=== PATIENT | female | born 1950 | race Caucasian/White ===

== ENCOUNTER 2017-06-14 12:46 | Inpatient (IN) | payer MEDICARE, OTHER ==
[2017-06-14] MEDS ORDERED: NALOXONE 0.4 MG/ML 1 ML VIAL IV PRN (13:10)
--- NOTE | 2017-06-14 13:10 | ED ---
General Adult HPI - General Chief complaint: Chest Pain Stated complaint: Chest Pain Time Seen by Provider: 06/14/17 13:05 Source: patient, RN notes reviewed Mode of arrival: wheelchair Limitations: no limitations - History of Present Illness Initial comments: 66 -year-old female presenting with chief complaint of chest pain. Pain began approximately 10 AM. Central substernal burning. This did radiate to both arms. She states that she had some nausea without significant vomiting. No diaphoresis. Patient has no known history of coronary artery disease, not currently on any medication. - Related Data Home Medications Medication Instructions Recorded Confirmed No Known Home Medications [No 10/12/13 06/28/14 Known Home Medications] Allergies Allergy/AdvReac Type Severity Reaction Status Date / Time codeine AdvReac Nausea & Verified 06/14/17 12:50 Vomiting EYE DROPS WITH PRESERVATIVE/ Allergy Unknown Uncoded 06/14/17 12:50 SULPA Review of Systems ROS Statement: Those systems with pertinent positive or pertinent negative responses have been documented in the HPI. ROS Other: All systems not noted in ROS Statement are negative. Past Medical History Additional Past Medical History / Comment(s): PM BLEEDING History of Any Multi-Drug Resistant Organisms: None Reported Past Surgical History: Tubal Ligation Additional Past Surgical History / Comment(s): D&C Past Anesthesia/Blood Transfusion Reactions: Motion Sickness, Postoperative Nausea & Vomiting (PONV) Past Psychological History: No Psychological Hx Reported Smoking Status: Never smoker Past Alcohol Use History: None Reported Past Drug Use History: None Reported - Past Family History Father Family Medical History: Cancer Additional Family Medical History / Comment(s): LIP General Exam Limitations: no limitations General appearance: alert, in no apparent distress Head exam: Present: atraumatic, normocephalic Eye exam: Present: normal appearance, PERRL ENT exam: Present: normal exam Neck exam: Present: normal inspection. Absent: tenderness, meningismus Respiratory exam: Present: normal lung sounds bilaterally. Absent: respiratory distress Cardiovascular Exam: Present: regular rate, normal rhythm GI/Abdominal exam: Present: soft. Absent: distended, tenderness Extremities exam: Present: normal inspection, full ROM. Absent: tenderness Neurological exam: Present: alert, oriented X3, CN II-XII intact. Absent: motor sensory deficit Psychiatric exam: Present: normal affect Skin exam: Present: warm, intact, diaphoretic Course Vital Signs 06/14/17 12:48 Temperature 98.1 F Pulse Rate 85 Respiratory 20 Rate Blood Pressure 179/79 O2 Sat by Pulse 99 Oximetry EKG Findings - EKG Comments: EKG Findings:: EKG shows sinus rhythm with sinus arrhythmia, ventricular rate 72 , W[place] interval 204, QRS duration 82, QTC 433, there is marked ST segment elevation in 23 and aVF, there is ST segment depression in aVL and lead 1. There is additional ST segment elevation in the lateral precordium the 345 and 6. STEMI Medical Decision Making - Medical Decision Making 66 yo female presenting with typical chest pain. EKG obtained consistent with ST segment elevated myocardial infarction. Case discussed with Dr. Carnes , patient will be taken to the Director Of Quality Control. She is given 325 aspirin and 4000 units of heparin. All laboratory studies and chest x-ray are pending. Critical Care Time Critical Care Time: Yes Total Critical Care Time: 35 Disposition Clinical Impression: ST elevation myocardial infarction (STEMI) Disposition: ADMITTED IP TO THIS HOSP Condition: Serious Referrals: Angela Dobson MD [Primary Care Provider] - 1-2 days Decision to Admit Reason: Admit from EC Decision Date: 06/14/17 Decision Time: 13:09
[2017-06-14] MEDS ORDERED: ASPIRIN 81 MG PO STA (13:11)
[2017-06-14] MEDS ORDERED: HEPARIN SODIUM,PORCINE 5,000 UNIT/ML 1 ML VIAL IV STA (13:11)
[2017-06-14] MEDS ORDERED: ATORVASTATIN 80 MG TAB PO STA (13:11)
[2017-06-14] MEDS ORDERED: LIDOCAINE 2% INJ 20 MG/ML (20 ML MDV) ONE (13:16)
[2017-06-14] MEDS ORDERED: SODIUM CHLORIDE 0.9% 1,000 ML IV ONE (13:19)
--- NOTE | 2017-06-14 13:19 | XR ---
EXAMINATION TYPE: XR chest 1V portable DATE OF EXAM: 06/14/2017 COMPARISON: NONE HISTORY: Chest pain TECHNIQUE: Single frontal view of the chest is obtained. FINDINGS: There is no focal air space opacity, pleural effusion, or pneumothorax seen. The cardiac silhouette size is within normal limits. The osseous structures are intact. Arthropathy shoulders n o overt failure. Question a 7 mm nodule at the right lung base. Hypertrophic change of the spine and atherosclerotic change aorta. IMPRESSION: 1. There is a 7 mm nodule right lower lobe near the right hemidiaphragm. Correlate with CT scan. 2. Atherosclerotic change aorta.
[2017-06-14 13:23] LABS: HCT 45.3 % (34.0-46.0); HGB 15.9 gm/dL (11.4-16.0); MCH 32.2 pg (25.0-35.0); RBC 4.93 m/uL (3.80-5.40); RDW 12.6 % (11.5-15.5); WBC 10.3 k/uL (3.8-10.6)
[2017-06-14] MEDS ORDERED: MIDAZOLAM 2 MG/2 ML VIAL ONE (13:23)
[2017-06-14 13:24] LABS: Mean Platelet Volume 6.6; Platelet Count 205 k/uL (150-450)
[2017-06-14] MEDS ORDERED: fentaNYL (PF) 50 MCG/ML 2 ML AMP ONE (13:24)
[2017-06-14] MEDS ORDERED: ONDANSETRON 4 MG/2 ML VIAL ONE ×2 (13:25→13:53)
[2017-06-14] MEDS ORDERED: LIDOCAINE 2% INJ 20 MG/ML SQ ONE (13:26)
[2017-06-14 13:29] LABS: Partial Thromboplastin Time 23.2 sec (22.0-30.0); Prothrombin Time 9.9 sec (9.0-12.0)
[2017-06-14] MEDS ORDERED: METOPROLOL TARTRATE 5 MG/5 ML VIAL IVP ONE ×2 (13:29→13:30)
[2017-06-14] MEDS ORDERED: ONDANSETRON 4 MG/2 ML VIAL IVP ONE (13:29)
[2017-06-14] MEDS ORDERED: fentaNYL (PF) 50 MCG/ML 2 ML AMP IV ONE (13:29)
[2017-06-14] MEDS ORDERED: MIDAZOLAM 2 MG/2 ML VIAL IV ONE (13:29)
[2017-06-14 13:31] LABS: ALT 31 U/L (9-52); AST 30 U/L (14-36); Albumin 4.4 g/dL (3.5-5.0); Alkaline Phosphatase 97 U/L (38-126); Anion Gap 12 mmol/L; Blood Urea Nitrogen 12 mg/dL (7-17); Calcium 9.6 mg/dL (8.4-10.2); Carbon Dioxide 25 mmol/L (22-30); Chloride 102 mmol/L (98-107); Glucose 144 mg/dL (74-99); Sodium 139 mmol/L (137-145); Total Bilirubin 0.5 mg/dL (0.2-1.3); Total Protein 7.4 g/dL (6.3-8.2)
--- NOTE | 2017-06-14 13:46 | P.PCN ---
Date of Procedure: 06/14/17 Preoperative Diagnosis: Acute inferior wall NM Postoperative Diagnosis: The same Procedure(s) Performed: Left heart catheterization without left ventriculography Description of Procedure: This is a 66-year-old female with history of hypertension on no medications, comes to the emergency room with complaints of chest pains, nausea and vomiting since 10:00 this morning. EKG shows ST elevation in inferior leads size to of inferior wall NM. Patient is advised to have cardiac catheterization with intervention of primary intervention. HISTORY: CONSENT:I have discussed the risks, benefits and alternative therapies for the above-mentioned procedure and for both sedation/analgesia as well as necessary blood product administration, if indicated, as they pertain to this patient. The patient has indicated understanding and acceptance of the risks and procedures discussed. [ PROCEDURE: Patient was brought to the lab in a fasting state. Patient was given some IV sedation. The right groin is infiltrated with lidocaine and right femoral artery was entered using Seldinger technique. A 6-Hebrew catheter was left in place and selective coronary arteriography was performed. Patient tolerated the procedure well. . No immediate complications were noted and patient is found to have total occlusion of the RCA. Waiting to have stent placement of the RCA by Dr. Rondon . Conscious Sedation: Versed 1mg Fentanyl 50 g Duration 11minutes HEMODYNAMICS: The aortic pressure is about 155/85. Left ankle end-diastolic pressure is 16. There was no gradient across the aortic valve SELECTIVE CORONARY ARTERIOGRAPHY: . LEFT MAIN: Normal length and patent THE LEFT ANTERIOR DESCENDING CORONARY ARTERY: This is a good caliber vessel giving rise to good-sized diagonal septal branch. There is mild disease at the origin of the diagonal branch. THE LEFT CIRCUMFLEX AND IS CORONARY ARTERY: This is a moderate caliber vessel giving rise to good-sized OM branch. The circumflex coronary artery and branches are free of occlusive disease THE RIGHT CORONARY ARTERY: This is totally occluded in the proximal portion COLLATERALS: There are collaterals to the distal RCA from the left coronary system LEFT VENTRICULOGRAPHY: Not performed FINAL IMPRESSION: Total occlusion of the RCA PLAN: Stent placement to be done by Dr. Rondon PROGNOSIS: Guarded
[2017-06-14] MEDS ORDERED: BIVALIRUDIN BOLUS 250 MG/50 ML IV ONE ×2 (13:50)
[2017-06-14] MEDS ORDERED: BIVALIRUDIN 250 MG in SODIUM CHLORIDE 0.9% 50 ML IV ONE (13:52)
--- NOTE | 2017-06-14 13:55 | P.CRDCN ---
History of Present Illness Consult date: 06/14/17 Requesting physician: Domingo Zhong Reason for Consult (text): Inferior ST elevation SC Chief complaint: Chest pain History of present illness: This is a pleasant 66-year-old female who states that she does have history of hypertension and hyperlipidemia although she takes no medications at home, nondiabetic, nonsmoker, presented to the hospital with symptoms of midsternal chest pressure and heaviness with associated burning. Patient states she initially felt as though she had heartburn, she did have associated nausea, then states that the pain went down both arms to her elbows. On presentation to the emergency room an EKG was performed which revealed significant ST elevation in the inferior leads, ST elevation also noted in the lower lateral leads, 1 and aVL had significant ST depression. patient was given aspirin and Lipitor as well as a bolus of IV heparin. She was advised to undergo emergent cardiac catheterization, the risks and the benefits were explained to the patient in detail. Chest x-ray results and labs not yet available. Past Medical History Additional Past Medical History / Comment(s): PM BLEEDING History of Any Multi-Drug Resistant Organisms: None Reported Past Surgical History: Tubal Ligation Additional Past Surgical History / Comment(s): D&C Past Anesthesia/Blood Transfusion Reactions: Motion Sickness, Postoperative Nausea & Vomiting (PONV) Past Psychological History: No Psychological Hx Reported Smoking Status: Never smoker Past Alcohol Use History: None Reported Past Drug Use History: None Reported - Past Family History Father Family Medical History: Cancer Additional Family Medical History / Comment(s): LIP Medications and Allergies Home Medications Medication Instructions Recorded Confirmed Type No Known Home Medications [No 10/12/13 06/14/17 History Known Home Medications] Allergies Allergy/AdvReac Type Severity Reaction Status Date / Time codeine AdvReac Nausea & Verified 06/14/17 13:11 Vomiting EYE DROPS WITH PRESERVATIVE/ Allergy Unknown Uncoded 06/14/17 12:50 SULPA Physical Exam Vitals: Vital Signs Temp Pulse Resp BP Pulse Ox 06/14/17 12:48 98.1 F 85 20 179/79 99 Intake and Output 06/13/17 06/14/17 06/14/17 22:59 06:59 14:59 Other: Weight 95.254 kg Patient Weight 06/15/17 06:59 Weight 95.254 kg PHYSICAL EXAMINATION: HEENT: Head is atraumatic, normocephalic. Pupils equal, round. Neck is supple. There is no elevated jugular venous pressure. HEART EXAMINATION: Heart S1, S2 normal. No murmur or gallop heard. CHEST EXAMINATION: Lungs are clear to auscultation and precussion. ABDOMEN: Soft, nontender. Bowel sounds are heard. No organomegaly noted. EXTREMITIES: 2+ peripheral pulses with no evidence of peripheral edema and no calf tenderness noted. NEUROLOGIC patient is awake, alert and oriented -3. . Results 06/14/17 13:00 06/14/17 13:00 Cardiac Enzymes 06/14/17 Range/Units 13:00 AST 30 (14-36) U/L Coagulation 06/14/17 Range/Units 13:00 PT 9.9 (9.0-12.0) sec APTT 23.2 (22.0-30.0) sec CBC 06/14/17 Range/Units 13:00 WBC 10.3 (3.8-10.6) k/uL RBC 4.93 (3.80-5.40) m/uL Hgb 15.9 (11.4-16.0) gm/dL Hct 45.3 (34.0-46.0) % Plt Count 205 (150-450) k/uL Comprehensive Metabolic Panel 06/14/17 Range/Units 13:00 Sodium 139 (137-145) mmol/L Potassium 4.0 (3.5-5.1) mmol/L Chloride 102 (98-107) mmol/L Carbon Dioxide 25 (22-30) mmol/L BUN 12 (7-17) mg/dL Creatinine 0.58 (0.52-1.04) mg/dL Glucose 144 H (74-99) mg/dL Calcium 9.6 (8.4-10.2) mg/dL AST 30 (14-36) U/L ALT 31 (9-52) U/L Alkaline Phosphatase 97 (38-126) U/L Total Protein 7.4 (6.3-8.2) g/dL Albumin 4.4 (3.5-5.0) g/dL Current Medications Generic Name Dose Route Start Last Admin Trade Name Freq PRN Reason Stop Dose Admin Naloxone HCl 0.2 mg 06/14/17 13:10 Narcan IV Q2M PRN Opioid Reversal Intake and Output 06/13/17 06/14/17 06/14/17 22:59 06:59 14:59 Other: Weight 95.254 kg Patient Weight 06/15/17 06:59 Weight 95.254 kg 06/14/17 13:00 06/14/17 13:00 EKG Interpretations (text) EKG shows normal sinus rhythm with ST elevation in the inferior leads, ST elevation in V4 [address] depression noted in 1 and AVL. Assessment and Plan Plan: Assessment and plan #[address] elevation myocardial infarction #2 history of hypertension and hyperlipidemia, untreated #3 nondiabetic, nonsmoker. Plan Patient was given a bolus of IV heparin along with aspirin and Lipitor, she was taken emergently to the cardiac catheterization lab, the risks and the benefits were explained to the patient in detail. Further recommendations will be made based on the findings and patient's clinical course. DNP note has been reviewed, I agree with a documented findings and plan of care. Patient was seen and examined.
[2017-06-14 14:01] LABS: Creatine Kinase MB 2.8 ng/mL (0.0-2.4); Troponin I 0.075 ng/mL (0.000-0.034)
[2017-06-14] MEDS ORDERED: methylPREDNISolone SOD SUCCI 125 MG/2 ML VIAL ONE (14:07)
[2017-06-14] MEDS ORDERED: diphenhydrAMINE 50 MG/ML 1 ML VIAL ONE (14:08)
[2017-06-14] MEDS ORDERED: methylPREDNISolone SOD SUCCI 125 MG/2 ML VIAL IV ONE (14:09)
[2017-06-14] MEDS ORDERED: diphenhydrAMINE 50 MG/ML 1 ML VIAL IVP ONE (14:09)
[2017-06-14] MEDS ORDERED: IOHEXOL 350 MG/ML 125ML BOTTLE INJ ONE (14:15)
[2017-06-14] MEDS ORDERED: RX INFO: IV CONTRAST WAS GIVEN 1 EACH MISC MISCELLANE PRN (14:28)
[2017-06-14] MEDS ORDERED: ATROPINE SULFATE 0.1 MG/ML 10ML SYRINGE IV PRN (14:28)
[2017-06-14] MEDS ORDERED: ZOLPIDEM 5 MG TAB PO PRN (14:28)
[2017-06-14] MEDS ORDERED: MAG HYDROX/AL HYDROX/SIMETH 30 ML CUP PO PRN (14:28)
[2017-06-14] MEDS ORDERED: NITROGLYCERIN SL TABS 0.4 MG TAB SUBLINGUAL PRN (14:28)
[2017-06-14] MEDS ORDERED: SODIUM CHLORIDE 0.9% 1,000 ML IV SCH (14:30)
[2017-06-14] MEDS ORDERED: PRASUGREL 10 MG TAB PO ONE (14:42)
[2017-06-14] MEDS ORDERED: PRASUGREL 10 MG TAB PO STA (14:54)
[2017-06-14 15:07] LABS: Glucose,Whole Blood 144 mg/dL (75-99)
--- NOTE | 2017-06-14 16:05 | PTCA ---
PERCUTANEOUSTRANS CORORONARY ANGIOGRAPHY Mrs. Kim is a 66-year-old female who presented with an acute inferior myocardial infarction, underwent emergent cardiac catheterization by Dr. Carnes, was found to have a totally occluded proximal right coronary artery. In view of that, recommendation made regarding angioplasty and stenting. The procedure as well as risks and complications were discussed with the patient who is in full understanding and agreement. PROCEDURE: A 6-Bahraini FR4 guiding catheter was introduced into the system. After cannulating the right coronary ostium, a 0.014 balanced medium J-wire was advanced, could not cross the lesion. That wire was removed and a 0.014 whisper J-wire was advanced across the lesion and positioned distally. Then a 2.5 x 12 mm Trek balloon was advanced. Two inflations at 10 atmospheres was done. Following that, the balloon was removed and a 2.5 x 15 mm Xience Alpine stent was deployed and post dilated at 14 atmospheres. Following that, the balloon was removed and a 3.0 x 12 mm Trek NC balloon with advanced. One inflation at 12 atmospheres was done. Following that, the balloon and the guidewire were withdrawn back in the guiding catheter. Images were obtained and repeated. Those images reveal stable successful stenting. At that point, the guiding catheter, the balloon and the guidewire were removed and a 6-Bahraini tight pigtail catheter was introduced into the left ventricle and a 30 degree MAJANO view of the left ventricle was obtained. Following that, the catheter and sheaths were removed. Hemostasis was obtained with deployment of an Angio-Seal. There was no immediate complication. Patient is returned to her room in stable condition. Of note, the patient had severe nausea during the procedure. Her chest discomfort resolved. Her EKG changes improved. She received Angiomax per protocol as well as oral loading dose of Effient. RESULTS: 1. Successful recanalization of a totally occluded mid right coronary artery with reduction of stenosis from 100% to 0%. 2. Mildly impaired left ventricular systolic function with mild inferior wall hypokinesis. Ejection fraction 45-50%. 3. Left ventricle end-diastolic pressure 16-20 mmHg. RECOMMENDATION: Patient will be continued on aspirin, Effient, beta iesha, jalen inhibitor and statin. The importance of dual antiplatelet treatment were discussed with the patient and she is in full understanding and agreement. MMODL / IJN: [id number] /
[2017-06-14 17:17] LABS: Glucose,Whole Blood 135 mg/dL (75-99)
[2017-06-14] MEDS ORDERED: METOPROLOL TARTRATE 25 MG TAB PO SCH (21:00)
[2017-06-15 03:04] LABS: Anion Gap 13 mmol/L; Blood Urea Nitrogen 12 mg/dL (7-17); Calcium 9.5 mg/dL (8.4-10.2); Carbon Dioxide 22 mmol/L (22-30); Chloride 105 mmol/L (98-107); Glucose 182 mg/dL (74-99); Potassium 4.3 mmol/L (3.5-5.1); Sodium 140 mmol/L (137-145)
[2017-06-15] MEDS: PRASUGREL 10 MG TAB PO SCH (08:57)
[2017-06-15] MEDS: ASPIRIN 81 MG PO SCH (08:57)
[2017-06-15 09:31] VITALS: BMI 38.4
--- NOTE | 2017-06-15 09:54 | P.PN ---
Subjective Progress Note Date: 06/15/17 This is a 66-year-old female who was admitted to the hospital yesterday with acute inferior wall myocardial infarction. Cardiac catheterization showed total occlusion of the RCA. Patient had stent placement. Patient is feeling much better today. She is maintaining sinus rhythm. Her groin is soft and her pulses in the foot are about 1+. Lungs appeared to be clear. Heart is regular. Her electoral lites are within normal limits. Patient could be moved to telemetry unit and increase her activity gradually. Echo is pending Objective - Vital Signs Vital signs: Vital Signs Temp 98 F 06/15/17 04:00 Pulse 61 06/15/17 07:00 Resp 20 06/15/17 07:00 BP 102/51 06/15/17 07:00 Pulse Ox 92 L 06/15/17 08:58 Intake & Output 06/14/17 06/15/17 06/15/17 18:59 06:59 18:59 Intake Total 380.2 1240 Output Total 1250 Balance 380.2 -10 Weight 0 g 98.4 kg 98.4 kg Intake: IV 180.2 800 Sodium Chloride 0.9% 1, 0 800 000 ml @ 100 mls/hr IV . Q10H NEIDA Rx#:[id number] Intake, IV Titration 200 Amount Sodium Chloride 0.9% 1, 200 000 ml @ 100 mls/hr IV . Q10H NEIDA Rx#:[id number] Oral 440 Output: Urine 1250 Other: Voiding Method Toilet # Voids 1 - Exam GENERAL EXAM: Patient is alert and oriented and doesn't appear to be in any acute distress HEENT: Normocephalic. Normal reaction of pupils, equal size, normal range of extraocular motion. No erythema or exudates in the throat. NECK: No masses, no nuchal rigidity. CHEST: No chest wall deformity. LUNGS: Equal air entry with no crackles or wheeze. HEART: S1 and S2 normal with no audible mumurs or gallops. Regular rhythm, ABDOMEN: No hepatosplenomegaly, normal bowel sounds, no guarding or rigidity. SKIN: No rashes CENTRAL NERVOUS SYSTEM: No focal deficits. EXTREMITIES: No cyanosis, clubbing or edema. Puncture site: Mild ecchymosis without any hematoma - Labs CBC & Chem 7: 06/14/17 13:00 06/15/17 01:00 Labs: Abnormal Lab Results - Last 24 Hours (Table) 06/14/17 06/14/17 06/14/17 Range/Units 13:00 13:00 14:59 Glucose 144 H (74-99) mg/dL POC Glucose (mg/dL) 144 H (75-99) mg/dL CK-MB (CK-2) 2.8 H* (0.0-2.4) ng/mL Troponin I 0.075 H* (0.000-0.034) ng/mL 06/14/17 06/14/17 06/15/17 Range/Units 17:15 18:56 00:51 Glucose (74-99) mg/dL POC Glucose (mg/dL) 135 H (75-99) mg/dL CK-MB (CK-2) (0.0-2.4) ng/mL Troponin I 19.700 H* 24.900 H* (0.000-0.034) ng/mL 06/15/17 Range/Units 01:00 Glucose 182 H (74-99) mg/dL POC Glucose (mg/dL) (75-99) mg/dL CK-MB (CK-2) (0.0-2.4) ng/mL Troponin I (0.000-0.034) ng/mL Assessment and Plan (1) Hypertension Current Visit: Yes Status: Acute Code(s): I10 - ESSENTIAL (PRIMARY) HYPERTENSION SNOMED Code(s): 68468476 (2) ST elevation myocardial infarction (STEMI) Current Visit: Yes Status: Acute Code(s): I21.3 - ST ELEVATION (STEMI) MYOCARDIAL INFARCTION OF [facility] SITE SNOMED Code(s): 926913256 Plan: Patient is critically stable ,post inferior wall CA and stent placement . we'll increase activity. Transferred to telemetry unit. Echocardiogram today. Possible discharge within 24-48 hours
--- NOTE | 2017-06-15 09:57 | ECHOF ---
Referral Reason:stemi MEASUREMENTS -------- HEIGHT: 160.0 cm WEIGHT: 95.3 kg BP: 144/63 RVIDd: 3.0 cm (< 3.3) IVSd: 0.9 cm (0.6 - 1.1) LVIDd: 4.2 cm (3.9 - 5.3) LVPWd: 1.1 cm (0.6 - 1.1) IVSs: 1.3 cm LVIDs: 3.4 cm LVPWs: 1.3 cm LAESV Index (A-L): 33.81 ml/m Ao Diam: 2.8 cm (2.0 - 3.7) AV Cusp: 1.5 cm (1.5 - 2.6) LA Diam: 3.3 cm (2.7 - 3.8) EPSS: 0.5 cm MV E Adi: 0.79 m/s MV DecT: 244 ms MV A Adi: 0.93 m/s MV E/A Ratio: 0.86 RAP: 15.00 mmHg RVSP: 32.74 mmHg MV EF SLOPE: 65.26 mm/s (70 - 150) MV EXCURSION: 1.47 cm (> 18.000) FINDINGS -------- Sinus rhythm. This was a technically difficult study with suboptimal views. Test performed in supine position due to recent heart cath. The left ventricular size is normal. Left ventricular wall thickness is normal. Overall left vent ricular systolic function is low-normal with, an EF between 50 - 55 %. Basal inferior LV wall motio n is hypokinetic. Mid inferior LV wall motion is hypokinetic. The right ventricle is normal in size and function. LA is midly dilated 29-33ml/m2. The right atrium was not well visualized. 2ml of Lumason was utilized for enhancement of images. The aortic valve is trileaflet, and appears structurally normal. No aortic stenosis or regurgitation. There is no evidence of aortic regurgitation. There is no evidence of aortic stenosis. The mitral valve is normal. Mild mitral regurgitation is present. Mild tricuspid regurgitation present. Right ventricular systolic pressure is normal at < 35 mmHg. There is no evidence of pulmonary hypertension. Trace/mild (physiologic) pulmonic regurgitation. The aortic root size is normal. The inferior vena cava is dilated with poor inspiratory collapse which is consistent with estimated r ight atrial pressure of 20 mmHg. There is no pericardial effusion. CONCLUSIONS -------- 1. Sinus rhythm. 2. This was a technically difficult study with suboptimal views. 3. Test performed in supine position due to recent heart cath. 4. Left ventricular wall thickness is normal. 5. Overall left ventricular systolic function is low-normal with, an EF between 50 - 55 %. 6. Basal inferior LV wall motion is hypokinetic. 7. Mid inferior LV wall motion is hypokinetic. 8. LA is midly dilated 29-33ml/m2. 9. The right atrium was not well visualized. 10. 2ml of Lumason was utilized for enhancement of images. 11. The aortic valve is trileaflet, and appears structurally normal. No aortic stenosis or regurgitat ion. 12. Mild mitral regurgitation is present. 13. Mild tricuspid regurgitation present. 14. Right ventricular systolic pressure is normal at < 35 mmHg. 15. Trace/mild (physiologic) pulmonic regurgitation. 16. The aortic root size is normal. 17. The inferior vena cava is dilated with poor inspiratory collapse which is consistent with estimat ed right atrial pressure of 20 mmHg. 18. There is no pericardial effusion. LEAD RIDER: Michael Navarro RDCS
[2017-06-15] MEDS: METOPROLOL TARTRATE 12.5 MG TAB PO SCH ×2 (11:00→20:38)
--- NOTE | 2017-06-15 11:36 | P.HPIM ---
History of Present Illness H&P Date: 06/15/17 Chief Complaint: Chest pain Patient presented to the emergency room with chest pain that started all of a sudden in the middle of her chest. She thought initially that he was heartburn. She described it as chest heaviness was associated with nausea. Pain radiated to her arms and elbow bilaterally. Patient was evaluated in the emergency room and was found to have ST elevation in the lateral leads. She was taken to the heart cath and underwent a successful stent placement To the mid RCA. She does not have any complaints right now. No chest pain. Fasting blood glucose this morning was 182. Patient is not known to have underlying history of diabetes. Review of Systems Review of system: 14 points review of systems were obtained and were negative except to what were mentioned in the HPI. Past Medical History Past Medical History: Hypertension, Osteoarthritis (OA) Additional Past Medical History / Comment(s): 06-14-17 stemi. other hx"PM BLEEDING, "heart skips a beat", arhtritis in hands, has a lower bridge History of Any Multi-Drug Resistant Organisms: None Reported Past Surgical History: Tubal Ligation Additional Past Surgical History / Comment(s): 06-14-17 heart cath w/ stent rca . other past sx:D&C, laser lt eye sx. Past Anesthesia/Blood Transfusion Reactions: Motion Sickness, Postoperative Nausea & Vomiting (PONV) Smoking Status: Former smoker - Past Family History Mother Family Medical History: CVA/TIA Father Family Medical History: Cancer Additional Family Medical History / Comment(s): LIP Medications and Allergies Home Medications Medication Instructions Recorded Confirmed Type No Known Home Medications [No 10/12/13 06/14/17 History Known Home Medications] Allergies Allergy/AdvReac Type Severity Reaction Status Date / Time codeine AdvReac Nausea & Verified 06/14/17 13:11 Vomiting EYE DROPS WITH PRESERVATIVE/ Allergy Unknown Uncoded 06/14/17 12:50 SULPA Physical Exam Vitals: Vital Signs Temp Pulse Pulse Pulse Resp BP BP 06/15/17 10:00 69 12 122/59 06/15/17 09:30 73 17 122/59 06/15/17 09:00 70 20 111/54 06/15/17 08:58 06/15/17 08:30 66 16 111/54 06/15/17 08:00 98.3 F 66 12 107/50 02/06/18 07:30 71 16 107/50 02/06/18 07:00 61 20 102/51 02/06/18 06:30 60 20 102/51 02/06/18 06:00 62 20 109/51 02/06/18 05:00 66 16 108/53 02/06/18 04:30 63 15 108/53 02/06/18 04:00 98 F 74 15 116/62 02/06/18 03:00 66 13 121/62 02/06/18 02:30 62 16 117/56 02/06/18 02:13 63 20 0218 02:00 68 24 124/60 02/06/18 01:30 65 20 113/56 02/0618 01:00 63 23 118/57 [id number] 00:30 64 16 116/52 02/06/18 00:00 98.4 F 69 20 114/56 02/05/18 23:30 67 18 119/59 02/05/18 23:10 69 17 133/60 02/05/18 23:00 81 20 133/60 02/05/18 22:30 95 16 131/56 02/05/18 22:00 72 20 135/60 02/05/18 21:30 88 16 129/70 02/05/18 21:00 70 14 137/64 02/05/18 20:30 67 18 122/68 02/05/18 20:00 98.1 F 77 22 165/82 02/05/18 19:35 69 02/05/18 19:30 72 20 153/77 02/05/18 19:00 65 18 156/74 02/05/18 18:30 69 11 L 147/77 02/05/18 18:00 84 16 136/65 02/05/18 17:30 68 12 157/88 02/05/18 17:08 67 14 02/05/18 16:49 62 16 129/60 02/05/18 15:31 64 16 138/62 02/05/18 15:13 62 16 144/63 02/05/18 14:58 70 16 125/63 02/05/18 14:50 98.2 F 77 16 126/65 02/05/18 14:43 74 16 117/57 02/05/18 12:48 98.1 F 85 20 179/79 Pulse Ox 06/15/17 10:00 93 L 06/15/17 09:30 94 L 06/15/17 09:00 95 06/15/17 08:58 92 L 06/15/17 08:30 94 L 06/15/17 08:00 93 L 06/15/17 07:30 93 L 06/15/17 07:00 91 L 06/15/17 06:30 91 L 06/15/17 06:00 91 L 06/15/17 05:00 93 L 06/15/17 04:30 94 L 06/15/17 04:00 97 06/15/17 03:00 96 06/15/17 02:30 96 06/15/17 02:13 94 L 06/15/17 02:00 94 L 06/15/17 01:30 91 L 06/15/17 01:00 92 L 06/15/17 00:30 93 L 06/15/17 00:00 94 L 06/14/17 23:30 93 L 06/14/17 23:10 93 L 06/14/17 23:00 93 L 06/14/17 22:30 95 06/14/17 22:00 91 L 06/14/17 21:30 93 L 06/14/17 21:00 93 L 06/14/17 20:30 92 L 06/14/17 20:00 92 L 06/14/17 19:35 06/14/17 19:30 95 06/14/17 19:00 95 06/14/17 18:30 97 06/14/17 18:00 97 06/14/17 17:30 95 06/14/17 17:08 06/14/17 16:49 99 06/14/17 15:31 98 06/14/17 15:13 98 06/14/17 14:58 98 06/14/17 14:50 97 06/14/17 14:43 96 06/14/17 12:48 99 Intake and Output 06/14/17 06/15/17 06/15/17 22:59 06:59 14:59 Intake Total 840 600 240 Output Total 600 650 Balance 240 -50 240 Intake: IV 400 400 0 Sodium Chloride 0.9% 1, 400 400 0 000 ml @ 100 mls/hr IV . Q10H [facility] Rx#:[id number] Intake, IV Titration 200 Amount Sodium Chloride 0.9% 1, 200 000 ml @ 100 mls/hr IV . Q10H [facility] Rx#:[id number] Oral 240 200 240 Output: Urine 600 650 Other: Voiding Method Bedpan Toilet Toilet # Voids 1 1 Weight 98.4 kg 98.4 kg Patient Weight 06/16/17 06:59 Weight 98.4 kg General: The patient is awake and alert, in no distress Eye: there is normal conjunctiva bilaterally. Neck: The neck is supple, there is no JVD. Cardiovascular: Normal S1-S2, no S3-S4, no murmurs. Respiratory: Lungs clear to auscultation bilaterally Gastrointestinal: Abdomen is soft, nontender Musculoskeletal: There is no pedal edema. Neurological:. Speech is normal. Skin: Skin is warm and dry Results CBC & Chem 7: 06/14/17 13:00 06/15/17 01:00 Labs: Abnormal Lab Results - Last 24 Hours (Table) 06/14/17 06/14/17 06/14/17 Range/Units 13:00 13:00 14:59 Glucose 144 H (74-99) mg/dL POC Glucose (mg/dL) 144 H (75-99) mg/dL CK-MB (CK-2) 2.8 H* (0.0-2.4) ng/mL Troponin I 0.075 H* (0.000-0.034) ng/mL 06/14/17 06/14/17 06/15/17 Range/Units 17:15 18:56 00:51 Glucose (74-99) mg/dL POC Glucose (mg/dL) 135 H (75-99) mg/dL CK-MB (CK-2) (0.0-2.4) ng/mL Troponin I 19.700 H* 24.900 H* (0.000-0.034) ng/mL 06/15/17 06/15/17 Range/Units 01:00 08:31 Glucose 182 H (74-99) mg/dL POC Glucose (mg/dL) (75-99) mg/dL CK-MB (CK-2) (0.0-2.4) ng/mL Troponin I 25.100 H* (0.000-0.034) ng/mL Thrombosis Risk Factor Assmnt - Choose All That Apply Any of the Below Risk Factors Present?: Yes Each Factor Represents 1 point: Acute [place], Obesity (BMI >25) Other Risk Factors: Yes Each Risk Factor Represents 2 Points: Age 61-74 years Other congenital or acquired thrombophilia - If yes, enter type in comment: No Thrombosis Risk Factor Assessment Total Risk Factor Score: 4 Thrombosis Risk Factor Assessment Level: Moderate Risk Assessment and Plan Assessment: 1. ST elevation [place] status post left heart catheterization with successful stent placement to mid RCA. Patient is on optimal medical management. Cardiology following. Echocardiogram showed preserved EF with no significant valvular abnormalities. 2. Essential hypertension, blood pressure well controlled 3. Fasting hyperglycemia, may be attributed that patient was drinking cranberry juice overnight. We will check A1c to rule out diabetes Today, I reviewed her medication list and lab work results. Continue current regimen. Check fasting lipid profile. Repeat lab work in the morning. Anticipate discharge home tomorrow.
[2017-06-15 18:54] LABS: Hemoglobin A1C 4.9 % (4.0-6.0)
[2017-06-15] MEDS: ATORVASTATIN 80 MG TAB PO SCH (20:38)
[2017-06-16 04:57] LABS: Anion Gap 8 mmol/L; Blood Urea Nitrogen 20 mg/dL (7-17); Carbon Dioxide 30 mmol/L (22-30); Chloride 103 mmol/L (98-107); Cholesterol 168 mg/dL (<200); Glucose 89 mg/dL (74-99); HDL Cholesterol 48 mg/dL (40-60); LDL Cholesterol,Calculated 98 mg/dL (0-99); Magnesium 2.2 mg/dL (1.6-2.3); Potassium 4.5 mmol/L (3.5-5.1); Sodium 141 mmol/L (137-145); Triglycerides 108 mg/dL (<150)
[2017-06-16 05:14] LABS: Basophils # (A) 0.1 k/uL (0-0.2); Basophils % (A) 0 %; Eosinophils # (A) 0.1 k/uL (0-0.7); Eosinophils % (A) 1 %; HCT 41.2 % (34.0-46.0); HGB 13.8 gm/dL (11.4-16.0); Lymphocytes % (A) 26 %; MCHC 33.6 g/dL (31.0-37.0); MCV 95.2 fL (80.0-100.0); Mean Platelet Volume 6.8; Monocytes # (A) 0.6 k/uL (0-1.0); Monocytes % (A) 5 %; Neutrophils # (A) 7.4 k/uL (1.3-7.7); Neutrophils % (A) 66 %; Platelet Count 194 k/uL (150-450); RBC 4.33 m/uL (3.80-5.40); RDW 12.8 % (11.5-15.5); WBC 11.3 k/uL (3.8-10.6)
[2017-06-16] MEDS: ASPIRIN 81 MG PO SCH (08:41)
[2017-06-16] MEDS: METOPROLOL TARTRATE 12.5 MG TAB PO SCH ×2 (08:41→20:14)
[2017-06-16] MEDS: PRASUGREL 10 MG TAB PO SCH (08:41)
--- NOTE | 2017-06-16 11:07 | P.PN ---
Subjective This is a 66-year-old female who was admitted to the hospital yesterday with acute inferior wall myocardial infarction. Cardiac catheterization showed total occlusion of the RCA. Patient had stent placement. Patient is feeling much better today. She is maintaining sinus rhythm. Her groin is soft and her pulses in the foot are about 1+. Lungs appeared to be clear. Heart is regular. Her electoral lites are within normal limits. Patient could be moved to telemetry unit and increase her activity gradually. Echo is pending. Patient seemed to be clinically stable. Denies any chest pain or shortness of breath. Patient is maintaining sinus rhythm. No arrhythmias detected. Echo Cardigan showed an ejection fraction of 50-50%. Patient is being transferred to telemetry unit. Increase activity as tolerated. Possible discharge in the morning Objective - Vital Signs Vital signs: Vital Signs Temp 97.6 F 06/16/17 08:00 Pulse 62 06/16/17 08:00 Resp 14 06/16/17 08:00 BP 130/52 06/16/17 08:00 Pulse Ox 96 06/16/17 08:00 Intake & Output 06/15/17 06/16/17 06/16/17 18:59 06:59 18:59 Intake Total 840 350 480 Output Total 650 1000 900 Balance 190 -650 -420 Weight 98.4 kg 98.4 kg Intake: IV 0 Sodium Chloride 0.9% 1, 0 000 ml @ 100 mls/hr IV . Q10H [facility] Rx#:[id number] Oral 840 350 480 Output: Urine 650 1000 900 Other: Voiding Method Toilet Toilet Toilet # Voids 1 - Exam GENERAL EXAM: Patient is alert and oriented and doesn't appear to be in any acute distress HEENT: Normocephalic. Normal reaction of pupils, equal size, normal range of extraocular motion. No erythema or exudates in the throat. NECK: No masses, no nuchal rigidity. CHEST: No chest wall deformity. LUNGS: Equal air entry with no crackles or wheeze. HEART: S1 and S2 normal with no audible mumurs or gallops. Regular rhythm, ABDOMEN: No hepatosplenomegaly, normal bowel sounds, no guarding or rigidity. SKIN: No rashes CENTRAL NERVOUS SYSTEM: No focal deficits. EXTREMITIES: No cyanosis, clubbing or edema. Puncture site: Mild ecchymosis without any hematoma - Labs CBC & Chem 7: 06/16/17 03:58 06/16/17 03:58 Labs: Abnormal Lab Results - Last 24 Hours (Table) 06/15/17 06/15/17 06/16/17 Range/Units 08:31 17:29 03:58 WBC (3.8-10.6) k/uL BUN 20 H (7-17) mg/dL Troponin I 25.100 H* 19.300 H* (0.000-0.034) ng/mL 06/16/17 Range/Units 03:58 WBC 11.3 H (3.8-10.6) k/uL BUN (7-17) mg/dL Troponin I (0.000-0.034) ng/mL Assessment and Plan (1) Hypertension Current Visit: Yes Status: Acute Code(s): I10 - ESSENTIAL (PRIMARY) HYPERTENSION SNOMED Code(s): 39162562 (2) ST elevation myocardial infarction (STEMI) Current Visit: Yes Status: Acute Code(s): I21.3 - ST ELEVATION (STEMI) MYOCARDIAL INFARCTION OF [facility] SITE SNOMED Code(s): 929837041 Plan: Patient remains clinically stable. No complaints of chest pain or shortness of breath. No arrhythmias. Increase activity as tolerated. Possible discharge in the morning.
--- NOTE | 2017-06-16 11:19 | P.PN ---
Subjective Patient is complaining of some constipation today. No abdominal pain. No distention. Objective - Vital Signs Vital signs: Vital Signs Temp 97.6 F 06/16/17 08:00 Pulse 62 06/16/17 08:00 Resp 14 06/16/17 08:00 BP 130/52 06/16/17 08:00 Pulse Ox 96 06/16/17 08:00 Intake & Output 06/15/17 06/16/17 06/16/17 18:59 06:59 18:59 Intake Total 840 350 480 Output Total 650 1000 900 Balance 190 -650 -420 Weight 98.4 kg 98.4 kg Intake: IV 0 Sodium Chloride 0.9% 1, 0 000 ml @ 100 mls/hr IV . Q10H [facility] Rx#:[id number] Oral 840 350 480 Output: Urine 650 1000 900 Other: Voiding Method Toilet Toilet Toilet # Voids 1 - Exam General: The patient is awake and alert, in no distress Eye: there is normal conjunctiva bilaterally. Neck: The neck is supple, there is no JVD. Cardiovascular: Normal S1-S2, no S3-S4, no murmurs. Respiratory: Lungs clear to auscultation bilaterally Gastrointestinal: Abdomen is soft, nontender Musculoskeletal: There is no pedal edema. Neurological:. Speech is normal. Skin: Skin is warm and dry - Labs CBC & Chem 7: 06/16/17 03:58 06/16/17 03:58 Labs: Abnormal Lab Results - Last 24 Hours (Table) 06/15/17 06/15/17 06/16/17 Range/Units 08:31 17:29 03:58 WBC (3.8-10.6) k/uL BUN 20 H (7-17) mg/dL Troponin I 25.100 H* 19.300 H* (0.000-0.034) ng/mL 06/16/17 Range/Units 03:58 WBC 11.3 H (3.8-10.6) k/uL BUN (7-17) mg/dL Troponin I (0.000-0.034) ng/mL Assessment and Plan Assessment: 1. ST elevation [place] status post left heart catheterization with successful stent placement to mid RCA. Patient is on optimal medical management. Cardiology following. Echocardiogram showed preserved EF with no significant valvular abnormalities. 2. Essential hypertension, blood pressure well controlled 3. Mixed hyperlipidemia continue Lipitor Today, I reviewed her medication list and lab work results. Continue current regimen. Awaiting cardiology clearance for discharge possibly tomorrow.
[2017-06-16] MEDS: DOCUSATE 100 MG CAP PO SCH (12:13)
[2017-06-16] MEDS: ATORVASTATIN 80 MG TAB PO SCH (20:15)
[2017-06-17] MEDS: PRASUGREL 10 MG TAB PO SCH (08:25)
[2017-06-17] MEDS: METOPROLOL TARTRATE 12.5 MG TAB PO SCH (08:25)
[2017-06-17] MEDS: DOCUSATE 100 MG CAP PO SCH (08:25)
[2017-06-17] MEDS: ASPIRIN 81 MG PO SCH (08:25)
[2017-06-17 08:39] VITALS: BP 138/61; PULSE 68; RESP 18; TEMP 98.4
--- NOTE | 2017-06-17 10:52 | P.PN ---
Subjective Progress Note Date: 06/17/17 This is a 66-year-old female who was admitted to the hospital yesterday with acute inferior wall myocardial infarction. Cardiac catheterization showed total occlusion of the RCA. Patient had stent placement. Patient is feeling much better today. She is maintaining sinus rhythm. Her groin is soft and her pulses in the foot are about 1+. Lungs appeared to be clear. Heart is regular. Her electoral lites are within normal limits. Patient could be moved to telemetry unit and increase her activity gradually. Echo is pending. Patient seemed to be clinically stable. Denies any chest pain or shortness of breath. Patient is maintaining sinus rhythm. No arrhythmias detected. Echo Cardigan showed an ejection fraction of 50-50%. Patient is being transferred to telemetry unit. Increase activity as tolerated. Possible discharge in the morning. Progress note for 06/17/2017: This patient remains stable. No complaints of any chest pain or shortness of breath. No arrhythmias noted. Patient tolerating activity in the room without any problems. Lungs are clear. Heart is regular. Patient could be discharged home. Patient will continue dual antiplatelet agents, beta iesha, CHET inhibitor and Lipitor. Follow-up in the office in one week Objective - Vital Signs Vital signs: Vital Signs Temp 98.4 F 06/17/17 08:00 Pulse 68 06/17/17 08:00 Resp 18 06/17/17 08:00 BP 138/61 06/17/17 08:00 Pulse Ox 95 06/17/17 04:00 Intake & Output 06/16/17 06/17/17 06/17/17 18:59 06:59 18:59 Intake Total 720 1240 Output Total 1850 550 Balance -1130 690 Weight 96.7 kg Intake: Oral 720 1240 Output: Urine 1850 550 Other: Voiding Method Toilet Toilet # Bowel Movements 1 2 - Exam GENERAL EXAM: Patient is alert and oriented and doesn't appear to be in any acute distress HEENT: Normocephalic. Normal reaction of pupils, equal size, normal range of extraocular motion. No erythema or exudates in the throat. NECK: No masses, no nuchal rigidity. CHEST: No chest wall deformity. LUNGS: Equal air entry with no crackles or wheeze. HEART: S1 and S2 normal with no audible mumurs or gallops. Regular rhythm, ABDOMEN: No hepatosplenomegaly, normal bowel sounds, no guarding or rigidity. SKIN: No rashes CENTRAL NERVOUS SYSTEM: No focal deficits. EXTREMITIES: No cyanosis, clubbing or edema. Puncture site: Mild ecchymosis without any hematoma - Labs CBC & Chem 7: 06/16/17 03:58 06/16/17 03:58 Assessment and Plan (1) Hypertension Current Visit: Yes Status: Acute Code(s): I10 - ESSENTIAL (PRIMARY) HYPERTENSION SNOMED Code(s): 96963482 (2) ST elevation myocardial infarction (STEMI) Current Visit: Yes Status: Acute Code(s): I21.3 - ST ELEVATION (STEMI) MYOCARDIAL INFARCTION OF [facility] SITE SNOMED Code(s): 576483755 Plan: Clinically stable without angina or shortness of breath. Lungs are clear. Heart is regular. No arrhythmias. Patient could be discharged home. Follow- up in one week
--- NOTE | 2017-06-17 11:57 | P.DS ---
Providers Date of admission: 06/14/17 13:10 Expected date of discharge: 06/17/17 Attending physician: Domingo Zhong Consults: 06/14/17 14:28 Consult Physician Routine Consulting Provider: [facility] Consult Reason/Comments: Post Interventional patient Do you want consulting provider notified?: Already Contacted Primary care physician: Angela Dobson [facility] Course: 1. ST elevation [place] status post left heart catheterization with successful stent placement to mid RCA. Patient is on optimal medical management. Cardiology following. Echocardiogram showed preserved EF with no significant valvular abnormalities. 2. Essential hypertension, blood pressure well controlled 3. Mixed hyperlipidemia continue Lipitor Patient Condition at Discharge: Serious Plan - Discharge Summary Discharge Rx Participant: Yes New Discharge Prescriptions: New Aspirin 81 mg PO DAILY #30 chew Atorvastatin Calcium [Lipitor] 10 mg PO HS #30 tab Metoprolol Tartrate [Lopressor] 12.5 mg PO BID #60 tab Prasugrel [Effient] 10 mg PO DAILY #30 tab Discharge Medication List Aspirin 81 mg PO DAILY #30 chew 06/17/17 [Rx] Atorvastatin Calcium [Lipitor] 10 mg PO HS #30 tab 06/17/17 [Rx] Metoprolol Tartrate [Lopressor] 12.5 mg PO BID #60 tab 06/17/17 [Rx] Prasugrel [Effient] 10 mg PO DAILY #30 tab 06/17/17 [Rx] Follow up Appointment(s)/Referral(s): Angela Dobson MD [Primary Care Provider] - 3 Days Renzo Carnes MD [STAFF PHYSICIAN] - 1 Week Discharge Disposition: HOME SELF-CARE
== END 2017-06-17 14:53 | disposition home or self-care (01) | DRG 247 ==
LOC: EC 12:46 → 6ICU 13:10 → EC 13:13 → 6ICU 16:48
PROVIDERS: ADMIT Internal Medicine; ATTEND Internal Medicine
PROC: B2111ZZ Fluoroscopy of Multiple Coronary Arteries using Low Osmolar Contrast (ICD-10-PCS; principal; 2017-06-14 12:55)
PROC: 4A023N7 Measurement of Cardiac Sampling and Pressure, Left Heart, Percutaneous Approach (ICD-10-PCS; principal; 2017-06-14 12:55)
PROC: 027034Z Dilation of Coronary Artery, One Artery with Drug-eluting Intraluminal Device, Percutaneous Approach (ICD-10-PCS; 2017-06-14 12:55)
DX: I21.19 ST elevation (STEMI) myocardial infarction involving other coronary artery of inferior wall (principal); E78.2 Mixed hyperlipidemia; I10 Essential (primary) hypertension; I25.10 Atherosclerotic heart disease of native coronary artery without angina pectoris; K59.00 Constipation, unspecified; Z87.891 Personal history of nicotine dependence
CPT/HCPCS: 36415; 71045; 80048; 80053; 80061; 82550; 82553; 83036; 83735; 84484; 85025; 85027; 85610; 85730; 93005; 93306; 93458; 96374; 99291

== ENCOUNTER 2017-07-09 02:10 | Emergency (ER) | payer MEDICARE, OTHER ==
[2017-07-09 02:21] VITALS: RESP 18
[2017-07-09 03:13] LABS: Appearance,Urine Clear (Clear); Bilirubin,Urine Negative (Negative); Blood,Urine Trace (Negative); Color,Urine Light Yellow; Glucose,Urine (UA) Negative (Negative); Ketones,Urine Negative (Negative); Leukocyte Esterase,Urine Large (Negative); PH, Urine 6.5 (5.0-8.0); Protein,Urine Negative (Negative); RBC,Urine 1 /hpf (0-5); Specific Gravity,Urine 1.004 (1.001-1.035); Squamous Epithelial Cell,Urine <1 /hpf (0-4); Urobilinogen,Urine <2.0 mg/dL (<2.0); WBC,Urine 53 /hpf (0-5)
[2017-07-09 03:21] LABS: ALT 31 U/L (9-52); AST 25 U/L (14-36); Albumin 4.5 g/dL (3.5-5.0); Alkaline Phosphatase 105 U/L (38-126); Anion Gap 11 mmol/L; Blood Urea Nitrogen 17 mg/dL (7-17); Calcium 9.6 mg/dL (8.4-10.2); Carbon Dioxide 28 mmol/L (22-30); Chloride 103 mmol/L (98-107); Glucose 106 mg/dL (74-99); Sodium 142 mmol/L (137-145); Total Bilirubin 0.4 mg/dL (0.2-1.3); Total Protein 7.6 g/dL (6.3-8.2)
--- NOTE | 2017-07-09 03:25 | ED ---
General Adult HPI - General Chief complaint: Recheck/Abnormal Lab/Rx Stated complaint: not feeling well Time Seen by Provider: 07/09/17 02:37 Source: patient Mode of arrival: wheelchair Limitations: no limitations - History of Present Illness Initial comments: This patient is a 66-year-old woman who presents after she had developed a feeling of flushing tonight throughout her entire upper body and also felt like her legs were heavy bilaterally. The patient states that she had been in her usual state of health until 11 tonight. At the time things came on she was watching television with her . She does report being under some stress recently related to her 's medical conditions. She was concerned because she did recently have a stent placed, though she states that the symptoms are not at all like what she was experiencing when she had the stent placed. At that time she had substernal chest pain that radiated to both arms, diaphoresis, and nausea. Onset/Timin -: hour(s) Radiation: non-radiation Quality: other (Flushing) Consistency: now resolved Improves with: none Worsens with: none Associated Symptoms: denies other symptoms Treatments Prior to Arrival: none - Related Data Previous Rx's Medication Instructions Recorded Aspirin 81 mg PO DAILY #30 chew 06/17/17 Atorvastatin Calcium [Lipitor] 10 mg PO HS #30 tab 06/17/17 Metoprolol Tartrate [Lopressor] 12.5 mg PO BID #60 tab 06/17/17 Prasugrel [Effient] 10 mg PO DAILY #30 tab 06/17/17 Nitrofurantoin Monohyd/M-Cryst 100 mg PO Q12HR #6 cap 07/09/17 [Macrobid] Allergies Allergy/AdvReac Type Severity Reaction Status Date / Time codeine AdvReac Nausea & Verified 07/09/17 02:21 Vomiting EYE DROPS WITH PRESERVATIVE/ Allergy Unknown Uncoded 07/09/17 02:21 SULPA Review of Systems ROS Statement: Those systems with pertinent positive or pertinent negative responses have been documented in the HPI. ROS Other: All systems not noted in ROS Statement are negative. Constitutional: Denies: fever, chills Eyes: Denies: vision change Respiratory: Denies: cough, dyspnea Cardiovascular: Denies: chest pain, edema, syncope Gastrointestinal: Denies: abdominal pain, nausea, vomiting Genitourinary: Denies: dysuria Musculoskeletal: Denies: back pain Skin: Denies: rash Neurological: Reports: weakness (Bilateral legs). Denies: headache, numbness, paresthesias Psychiatric: Reports: anxiety Past Medical History Past Medical History: Hypertension, Myocardial Infarction (ME), Osteoarthritis ( OA) Additional Past Medical History / Comment(s): 06-14-17 stemi. other hx"PM BLEEDING, "heart skips a beat", arhtritis in hands, has a lower bridge History of Any Multi-Drug Resistant Organisms: None Reported Past Surgical History: Heart Catheterization With Stent, Tubal Ligation Additional Past Surgical History / Comment(s): 06-14-17 heart cath w/ stent rca . other past sx:D&C, laser lt eye sx. Past Anesthesia/Blood Transfusion Reactions: Motion Sickness, Postoperative Nausea & Vomiting (PONV) Past Psychological History: No Psychological Hx Reported Smoking Status: Former smoker Past Alcohol Use History: Rare Past Drug Use History: None Reported - Past Family History Mother Family Medical History: CVA/TIA Father Family Medical History: Cancer Additional Family Medical History / Comment(s): LIP General Exam Limitations: no limitations General appearance: alert, in no apparent distress, obese Head exam: Present: atraumatic, normocephalic Eye exam: Present: normal appearance. Absent: scleral icterus, conjunctival injection ENT exam: Present: normal oropharynx Neck exam: Present: normal inspection Respiratory exam: Present: normal lung sounds bilaterally. Absent: respiratory distress, wheezes, rales, rhonchi, stridor Cardiovascular Exam: Present: regular rate, normal rhythm, normal heart sounds. Absent: systolic murmur, diastolic murmur, rubs, gallop GI/Abdominal exam: Present: soft. Absent: distended, tenderness, guarding, rebound, mass Extremities exam: Present: normal inspection, normal capillary refill. Absent: pedal edema, calf tenderness Back exam: Present: normal inspection. Absent: CVA tenderness (R), CVA tenderness (L) Neurological exam: Present: alert. Absent: motor sensory deficit Psychiatric exam: Present: anxious Skin exam: Present: warm, dry, intact, normal color. Absent: rash Course Vital Signs 07/09/17 07/09/17 07/09/17 02:14 03:21 03:29 Temperature 97.4 F L Pulse Rate 76 62 60 Respiratory 18 18 16 Rate Blood Pressure 204/96 147/69 125/61 O2 Sat by Pulse 96 95 96 Oximetry 07/09/17 03:54 Temperature Pulse Rate 70 Respiratory 18 Rate Blood Pressure 153/72 O2 Sat by Pulse 96 Oximetry EKG Findings - EKG Results: EKG: interpreted by ERMD, sinus rhythm (With PVC, the rate is proximal 66 bpm) - Blocks, [place], Hypertrophy, ST Abn: QRS axis and voltage: left axis deviation (-30 to -90) - ME, Pacemaker, Normal: Myocardial infarction: inferior ME (old age indeterminate) Medical Decision Making - Lab Data Result diagrams: 07/09/17 02:30 07/09/17 02:30 Lab Results 07/09/17 07/09/17 07/09/17 Range/Units 02:30 02:30 02:30 WBC 8.0 (3.8-10.6) k/uL RBC 5.03 (3.80-5.40) m/uL Hgb 16.1 H (11.4-16.0) gm/dL Hct 46.4 H (34.0-46.0) % MCV 92.2 (80.0-100.0) fL MCH 31.9 (25.0-35.0) pg MCHC 34.6 (31.0-37.0) g/dL RDW 12.7 (11.5-15.5) % Plt Count 206 (150-450) k/uL Neutrophils % 59 % Lymphocytes % 29 % Monocytes % 6 % Eosinophils % 3 % Basophils % 1 % Neutrophils # 4.7 (1.3-7.7) k/uL Lymphocytes # 2.3 (1.0-4.8) k/uL Monocytes # 0.5 (0-1.0) k/uL Eosinophils # 0.2 (0-0.7) k/uL Basophils # 0.0 (0-0.2) k/uL PT 10.0 (9.0-12.0) sec INR 1.0 (<1.2) Sodium 142 (137-145) mmol/L Potassium 4.0 (3.5-5.1) mmol/L Chloride 103 (98-107) mmol/L Carbon Dioxide 28 (22-30) mmol/L Anion Gap 11 mmol/L BUN 17 (7-17) mg/dL Creatinine 0.70 (0.52-1.04) mg/dL Est GFR (MDRD) Af Amer >60 (>60 ml/min/1.73 sqM) Est GFR (MDRD) Non-Af >60 (>60 ml/min/1.73 sqM) Glucose 106 H (74-99) mg/dL Calcium 9.6 (8.4-10.2) mg/dL Magnesium 2.1 (1.6-2.3) mg/dL Total Bilirubin 0.4 (0.2-1.3) mg/dL AST 25 (14-36) U/L ALT 31 (9-52) U/L Alkaline Phosphatase 105 (38-126) U/L Troponin I (0.000-0.034) ng/mL Total Protein 7.6 (6.3-8.2) g/dL Albumin 4.5 (3.5-5.0) g/dL Urine Color Urine Appearance (Clear) Urine pH (5.0-8.0) Ur Specific [place] (1.001-1.035) Urine Protein (Negative) Urine Glucose (UA) (Negative) Urine Ketones (Negative) Urine Blood (Negative) Urine Nitrite (Negative) Urine Bilirubin (Negative) Urine Urobilinogen (<2.0) mg/dL Ur Leukocyte Esterase (Negative) Urine RBC (0-5) /hpf Urine WBC (0-5) /hpf Ur Squamous Epith Cells (0-4) /hpf 07/09/17 07/09/17 Range/Units 02:30 02:30 WBC (3.8-10.6) k/uL RBC (3.80-5.40) m/uL Hgb (11.4-16.0) gm/dL Hct (34.0-46.0) % MCV (80.0-100.0) fL MCH (25.0-35.0) pg MCHC (31.0-37.0) g/dL RDW (11.5-15.5) % Plt Count (150-450) k/uL Neutrophils % % Lymphocytes % % Monocytes % % Eosinophils % % Basophils % % Neutrophils # (1.3-7.7) k/uL Lymphocytes # (1.0-4.8) k/uL Monocytes # (0-1.0) k/uL Eosinophils # (0-0.7) k/uL Basophils # (0-0.2) k/uL PT (9.0-12.0) sec INR (<1.2) Sodium (137-145) mmol/L Potassium (3.5-5.1) mmol/L Chloride (98-107) mmol/L Carbon Dioxide (22-30) mmol/L Anion Gap mmol/L BUN (7-17) mg/dL Creatinine (0.52-1.04) mg/dL Est GFR (MDRD) Af Amer (>60 ml/min/1.73 sqM) Est GFR (MDRD) Non-Af (>60 ml/min/1.73 sqM) Glucose (74-99) mg/dL Calcium (8.4-10.2) mg/dL Magnesium (1.6-2.3) mg/dL Total Bilirubin (0.2-1.3) mg/dL AST (14-36) U/L ALT (9-52) U/L Alkaline Phosphatase (38-126) U/L Troponin I <0.012 (0.000-0.034) ng/mL Total Protein (6.3-8.2) g/dL Albumin (3.5-5.0) g/dL Urine Color Light Yellow Urine Appearance Clear (Clear) Urine pH 6.5 (5.0-8.0) Ur Specific [place] 1.004 (1.001-1.035) Urine Protein Negative (Negative) Urine Glucose (UA) Negative (Negative) Urine Ketones Negative (Negative) Urine Blood Trace H (Negative) Urine Nitrite Negative (Negative) Urine Bilirubin Negative (Negative) Urine Urobilinogen <2.0 (<2.0) mg/dL Ur Leukocyte Esterase Large H (Negative) Urine RBC 1 (0-5) /hpf Urine WBC 53 H (0-5) /hpf Ur Squamous Epith Cells <1 (0-4) /hpf Disposition Clinical Impression: Urinary tract infection Disposition: HOME SELF-CARE Condition: Good Instructions: Urinary Tract Infection in Women (ED) Prescriptions: Nitrofurantoin Monohyd/M-Cryst [Macrobid] 100 mg PO Q12HR #6 cap Referrals: Angela Dobson MD [Primary Care Provider] - 1-2 days
--- NOTE | 2017-07-09 03:32 | XR ---
EXAMINATION TYPE: XR chest 1V portable DATE OF EXAM: 07/09/2017 COMPARISON: 06/14/2017 HISTORY: Weakness TECHNIQUE: Single frontal view of the chest is obtained. FINDINGS: Heart and mediastinum are normal. Lungs are clear. Diaphragm is normal. There are chest le ads. Bony thorax is intact. IMPRESSION: Normal chest. No change
[2017-07-09 03:43] LABS: Basophils % (A) 1 %; Eosinophils # (A) 0.2 k/uL (0-0.7); Eosinophils % (A) 3 %; HCT 46.4 % (34.0-46.0); HGB 16.1 gm/dL (11.4-16.0); Lymphocytes # (A) 2.3 k/uL (1.0-4.8); Lymphocytes % (A) 29 %; MCH 31.9 pg (25.0-35.0); MCHC 34.6 g/dL (31.0-37.0); MCV 92.2 fL (80.0-100.0); Mean Platelet Volume 6.3; Monocytes # (A) 0.5 k/uL (0-1.0); Monocytes % (A) 6 %; Neutrophils # (A) 4.7 k/uL (1.3-7.7); Neutrophils % (A) 59 %; Platelet Count 206 k/uL (150-450); RBC 5.03 m/uL (3.80-5.40); RDW 12.7 % (11.5-15.5)
[2017-07-09 04:15] VITALS: BP 165/83; PULSE 65; TEMP 97.2
== END 2017-07-09 04:19 | disposition home or self-care (01) ==
LOC: EC 02:10
DX: N39.0 Urinary tract infection, site not specified (principal); R07.2 Precordial pain; R11.0 Nausea; R61 Generalized hyperhidrosis; Z87.891 Personal history of nicotine dependence; Z88.5 Allergy status to narcotic agent; Z88.8 Allergy status to other drugs, medicaments and biological substances
CPT/HCPCS: 36415; 71045; 80053; 81001; 83735; 84484; 85025; 85610; 93005; 99284

== ENCOUNTER → 2017-07-12 | Outpatient (CLI) | payer MEDICARE, OTHER ==
[2017-07-12 12:55] LABS: Blood Urea Nitrogen 11 mg/dL (7-17)
--- NOTE | 2017-07-12 14:06 | CT ---
EXAMINATION TYPE: CT chest w con DATE OF EXAM: 07/12/2017 COMPARISON: NONE HISTORY: Per patient nodule found during stent placement CT DLP: 807 mGycm. Automated Exposure Control for Dose Reduction was Utilized. TECHNIQUE: CT scan of the thorax is performed following with IV Contrast, patient injected with 100 mL of Omnipaque 300. FINDINGS: LUNGS: There is a superior segment left lower lobe 1.6 x 2.3 x 2.1 cm spiculated subsolid pulmonary n odule with tethering of the fissure on sagittal series 7 image 94. Punctate superior segment right lo wer lobe 2 mm subpleural solid pulmonary nodules also seen on axial series 4 image 23. Scattered calc ified benign granulomas are seen bilaterally. The previously questioned 7 mm right basilar pulmonary nodule represents a benign calcified granuloma. Subsegmental and 3 mm pulmonary nodule on series 4 im age 34 is seen at the left lung base. The lungs demonstrate no focal consolidation. There is no ple ural effusion or pneumothorax seen. The tracheobronchial tree is patent. MEDIASTINUM: There are no greater than 1 cm hilar or mediastinal lymph nodes. Calcified hilar lymph n odes are indicative of prior granulomatous disease. No pericardial effusion is seen. Mild coronary artery calcifications are incidentally noted. OTHER: There is a small hiatal hernia. Scattered benign granulomatous calcifications are seen within the splenic parenchyma. Moderate multilevel degenerative changes of the thoracic spine are noted. IMPRESSION: 1. Suspicious 2.3 cm subsolid superior segment left lower lobe pulmonary nodule tethering the fissure . Further evaluation with PET CT could be performed. 2. Additional 2 mm and 3 mm superior segment right lower lobe and left lower lobe subsolid pulmonary nodules that could represent granulomatous changes given the multiple bilateral calcified benign pulm onary granulomas or neoplasm. Surveillance is recommended as these are below the threshold of PET CT. 3. Mild coronary artery calcifications, a marker for coronary artery disease. 4. Small hiatal hernia.
== END | disposition home or self-care (01) ==
LOC: RADCTMAIN 12:20
PROVIDERS: ATTEND Family Medicine
DX: R91.8 Other nonspecific abnormal finding of lung field (principal); I25.10 Atherosclerotic heart disease of native coronary artery without angina pectoris; K44.9 Diaphragmatic hernia without obstruction or gangrene
CPT/HCPCS: 82565; 84520; 71260; 36415; Q9967

== ENCOUNTER → 2017-07-29 | Outpatient (CLI) | payer MEDICARE, OTHER ==
--- NOTE | 2017-07-30 09:21 | MM ---
Reason for exam: clinical finding. Baseline mammogram. Physical Findings: Nurse Summary: multiple superficial areas on and around areola and right lower outer quadrant (nurse dw). MG 3D Diag Mammo W/Cad JODY Bilateral CC and MLO view(s) were taken. These results were verbally communicated with the patient and result sheet given to the patient on 07/29/17. ASSESSMENT: Incomplete: need additional imaging evaluation, BI-RAD 0 RECOMMENDATION: Ultrasound of the left breast.
--- NOTE | 2017-07-30 10:03 | USB ---
Reason for exam: clinical finding. Physical Findings: Nurse Summary: multiple superficial areas on and around areala and right lower outer quadrant (nurse dw). US Breast RT Right breast ultrasound includes all four quadrants, the retroareolar region and axilla. Finding demonstrates a 7 x 2 x 6mm oval, mixed, hypoechoic lesion at 2 o'clock, elongated, wider than tall, vascular, possible dilated duct with debris, probably benign, benign superficial calcifications at palpable 4 o'clock BB, a 6 x 3 x 7mm oval, cystic, benign lesion at 6 o'clock, a 4 x 2 x 4mm oval, cystic, benign lesion at 7 o'clock, a 8 x 5 x 6mm, lobular, probably benign, mixed, hypoechoic lesion at 9 o'clock and a 4 x 3 x 4mm oval, mixed, hypoechoic lesion at 10 o'clock. These results were verbally communicated with the patient and result sheet given to the patient on 07/29/17. ASSESSMENT: Incomplete: need additional imaging evaluation, BI-RAD 0 RECOMMENDATION: Follow-up diagnostic mammogram of both breasts. (now) Ultrasound of the right breast in 6 months. (2 o'clock and 9 o'clock)
--- NOTE | 2017-07-30 10:06 | USB ---
Reason for exam: additional evaluation requested from abnormal screening. US Breast LT Left breast ultrasound includes all four quadrants, the retroareolar region and axilla. Finding demonstrates a 11 x 7 x 7mm oval, cystic lesion at 4 o'clock, a 3 x 3 x 3mm oval, cystic lesion at 3 o'clock and a 10 x 6 x 11mm irregular, solid, hypoechoic lesion at 3 o'clock for which a biopsy is recommended. These results were verbally communicated with the patient and result sheet given to the patient on 07/29/17. ASSESSMENT: Suspicious, BI-RAD 4 RECOMMENDATION: Ultrasound core biopsy of the left breast. Called with mammographic findings and has scheduled an appointment for the patient for 08/12/17 at 12:[address] Dobson. PRELIMINARY REPORT CALLED AND FAXED TO DR. DOBSON ON 07/30/17.
== END | disposition home or self-care (01) ==
LOC: RADUSWWP 13:38
PROVIDERS: ATTEND Family Medicine
DX: R92.8 Other abnormal and inconclusive findings on diagnostic imaging of breast (principal); N63.10 Unspecified lump in the right breast, unspecified quadrant
CPT/HCPCS: 77066; 76641; G0279

== ENCOUNTER → 2018-06-22 | Outpatient (CLI) | payer MEDICARE, OTHER ==
[2018-06-22 15:52] LABS: LDL Cholesterol,Calculated 84.4 mg/dL (0.0-131.0); VLDL Calculation 12.6 mg/dL (5.00-40.00)
== END | disposition home or self-care (01) ==
LOC: LABWHC1 11:17
PROVIDERS: ATTEND Internal Medicine Cardiovascular Disease
DX: I25.10 Atherosclerotic heart disease of native coronary artery without angina pectoris (principal); E78.5 Hyperlipidemia, unspecified
CPT/HCPCS: 36415; 80061; 84450; 84460

== ENCOUNTER → 2019-02-16 | Outpatient (CLI) | payer MEDICARE, OTHER ==
--- NOTE | 2019-02-17 14:14 | USB ---
Reason for exam: clinical finding. Physical Findings: Nurse Summary: right axilla superficial 1 x 2cm lump, left palpable lump 4 o'clock, right breast swollen, hardened, patient states has been progressing since 2018, states it itches, reddened areas noted inferior half right and areolar, patient states started in 2018, patient complains of pain only in left breast lateral with palpation 3 o'clock area (nurse TM). US Breast BILAT Right complete breast ultrasound includes all four quadrants, the retroareolar region and axilla. Finding demonstrates a 15 x 10 x 26mm oval, solid lesion at the axilla BB, suspicious. Left complete breast ultrasound includes all four quadrants, the retroareolar region and axilla. Finding demonstrates a 4 x 4 x 4mm oval, hypoechoic lesion at 2 o'clock, a 15 x 7 x 13mm irregular, hypoechoic lesion at 3 o'clock, suspicious, fairly stable 07/29/17, a 11 x 9 x 9mm oval, cystic lesion at 4 o'clock BB and a 4 x 3 x 5mm oval, hypoechoic lesion at 6 o'clock. These results were verbally communicated with the patient and result sheet given to the patient on 02/16/19. ASSESSMENT: Suspicious, BI-RAD 4 RECOMMENDATION: Follow-up diagnostic mammogram and ultrasound core biopsy of both breasts. Called Dr. Buckley's office with mammographic findings. PRELIMINARY REPORT CALLED AND FAXED TO DR. BUCKLEY ON 02/17/19.
== END | disposition home or self-care (01) ==
LOC: RADUSWWP 13:59
PROVIDERS: ATTEND Family Medicine
DX: N64.4 Mastodynia (principal)

== ENCOUNTER → 2019-07-27 | Outpatient (CLI) | payer MEDICARE, OTHER ==
[2019-07-27 12:18] VITALS: BP 154/77; PULSE 70; RESP 16; TEMP 97.9
--- NOTE | 2019-07-27 12:37 | P.GSHP ---
History of Present Illness H&P Date: 07/27/19 Chief Complaint: swollen right breast Kat is a 79-year-old white female who presents with a complaint of a right breast swelling/mass for approximately one year. She states that it progressively got slightly larger but seems to have stabilized at this time. She does have some right nipple inversion. She has not complained of any problems in the left breast. She did have a bilateral mammogram performed on [id number]. This revealed benign round linear calcifications with some chronic nodularity. There was also some right skin thickening noted. She had bilateral ultrasounds performed an ultrasound of the right breast revealed a 15 x 26 mm solid lesion at the axilla ultrasound of the left breast revealed a 15 x 13 mm hypoechoic lesion at 3:00 ultrasound-guided core biopsy of both breast was recommended. She was scheduled for biopsy in February but this was cancelled after she saw the radiologist. She was told however that this had not changed and therefore biopsy was canceled. Upon review of the patient's records it was noted that in 2017 she had a 2.3 cm sub-solid superior segment left lower lobe pulmonary nodule tethering the fissure additionally she was noted to have 2 mm and 3 mm superior segment right lower lobe and left lower lobe sub-solid pulmonary nodules that could represent granulomatous changes given the multiple bilateral calcified benign pulmonary granulomas surveillance was recommended. PET/CT was recommended but this was n ot done. estrogen: none Family History: mother: ? cancer/bronchial father: lip cancer Hormonal History: menarche: 13 , breast fed: none, age at first : 21 menopause: 50 BCP: tubaligation done after tried one "batch" hormones: used to drink soy milk Surgical History: 1. tubiligation 2. cardiac stint 3. left laser eye surgery Medical History: 1. CO 2. uterine spotting told pre-cancer but seemed to resolve Social History: smoke: none stopped 50 years ago alcohol: none drugs: none - Constitutional Constitutional: Denies chills, Denies fever - EENT Eyes: denies blurred vision, denies pain Ears: deny: decreased hearing, tinnitus Ears, nose, mouth and throat: Denies headache, Denies sore throat - Breasts Breasts: bilateral: as per HPI - Cardiovascular Comment: CO, no aspirin or blood thinners - Respiratory Respiratory: Denies cough, Denies 7 - Gastrointestinal Gastrointestinal: Denies abdominal pain, Denies diarrhea, Denies nausea, Denies vomiting - Genitourinary (Female) Genitourinary: Denies dysuria, Denies hematuria - Menstruation Menstruation: Reports postmenopausal - Musculoskeletal Comment: arthritis Musculoskeletal: Denies myalgias - Integumentary Comment: redness of right breast in the past - Neurological Neurological: Denies numbness, Denies weakness - Psychiatric Psychiatric: Reports anxiety, Denies depression - Endocrine Endocrine: Denies fatigue, Denies weight change - Hematologic/Lymphatic Comment: none - Allergic/Immunologic Allergic/Immunologic: Reports as per HPI Past Medical History Past Medical History: Hypertension, Myocardial Infarction (CO), Osteoarthritis (OA) Additional Past Medical History / Comment(s): 2-18 stemi. other hx"PM BLEEDING, "heart skips a beat", arhtritis in hands, has a lower bridge History of Any Multi-Drug Resistant Organisms: None Reported Past Surgical History: Heart Catheterization With Stent, Tubal Ligation Additional Past Surgical History / Comment(s): 2-09-24 heart cath w/ stent rca . other past sx:D&C, laser lt eye sx. Past Anesthesia/Blood Transfusion Reactions: Motion Sickness, Postoperative Nausea & Vomiting (PONV) Past Psychological History: No Psychological Hx Reported Smoking Status: Former smoker Past Alcohol Use History: Rare Past Drug Use History: None Reported - Past Family History Mother Family Medical History: CVA/TIA Father Family Medical History: Cancer Additional Family Medical History / Comment(s): LIP Medications and Allergies Home Medications Medication Instructions Recorded Confirmed Type Metoprolol Tartrate [Lopressor] 12.5 mg PO HS 07/27/19 07/27/19 History Allergies Allergy/AdvReac Type Severity Reaction Status Date / Time codeine AdvReac Nausea & Verified 07/27/19 11:58 Vomiting EYE DROPS WITH PRESERVATIVE/ Allergy Unknown Uncoded 07/27/19 11:58 SULPA Surgical - Exam BMI 36.3 - General well developed, well nourished, no distress - Eyes normal ocular movement, no icteric - ENT no hearing loss, no congestion - Neck no masses, trachea midline - Respiratory normal expansion, normal respiratory effort, clear to auscultation - Cardiovascular Rhythm: regular Heart Sounds: normal: S1, S2 - Abdomen Abdomen: soft, non tender, bowel sounds, no guarding, no rigid, no rebound - Integumentary Breast Exam: Bra DD Inspection: Right breast shrunken with respect to the left breast, nipple in version on right, skin changes inferior aspect of breast consistent with malignant disease, no lesions of concern noted in the left breast Palpation: Right breast: 21 x 15 cm lesion in the right breast causing some inversion of the nipple there is some skin changes in the inferior aspect of the breast consistent with malignant change Right axilla: No adenopathy of concern Left breast: Multi-positional exam no dominant masses or nodules of concern Left axilla: No adenopathy of concern - Musculoskeletal normal gait - Psychiatric oriented to time, oriented to person, oriented to place, speech is normal, memory intact Results abnormal mammogram and ultrasound Assessment and Plan Assessment: Impression: 1. mass right breast 2. abnormal ultrasound bilateral 3. CO Plan: 1. bilateral breast biopsy 2. follow up after biopsy Patient insists that specimen be sent for fungal biopsy as well. She has seen a natural medicine doctor and is not comfortable with conventional medicine. She is trusting God for a complete healing, and has a friend who is a "prophet" who told her her breast are normal. I discussed with her that medically this is very suspicious for a right breast cancer possible bilateral cancer and it was strongly recommend bilateral biopsies be done. Conventional medicine will most likely include some chemotherapy depending on hormone receptor status and metastatic workup. CC: Livia Nixon encounter: 60 minutes, > 50% of time in planning and counselling Time with Patient: Greater than 30
== END ==
LOC: WWCWWP 11:38
PROVIDERS: ATTEND Surgery
DX: Z53.9 Procedure and treatment not carried out, unspecified reason (principal)

== ENCOUNTER → 2020-02-15 | Outpatient (CLI) | payer MEDICARE, OTHER ==
[2020-02-15 14:39] VITALS: BP 148/82; PULSE 69; RESP 12; TEMP 98.1
--- NOTE | 2020-02-15 14:59 | P.PN ---
Subjective Progress Note Date: 02/15/20 Principal diagnosis: mass right breast Kat is a 69-year-old white female who presented with a complaint of a right breast swelling/mass for approximately one year in July of 2019. She stated that it progressively got slightly larger but seemed to have stabilized at that time. She did have some right nipple inversion. She had not complained of any problems in the left breast. She did have a bilateral mammogram performed on [id number]. This revealed benign round linear calcifications with some chronic nodularity. There was also some right skin thickening noted. She had bilateral ultrasounds performed an ultrasound of the right breast revealed a 15 x 26 mm solid lesion at the axilla ultrasound of the left breast revealed a 15 x 13 mm hypoechoic lesion at 3:00; ultrasound-guided core biopsy of both breast was recommended. She was scheduled for biopsy in February but this was cancelled after she saw the radiologist. She was told however that this had not changed and therefore biopsy was canceled. Upon review of the patient's records it was noted that in 2017 she had a 2.3 cm sub-solid superior segment left lower lobe pulmonary nodule tethering the fissure additionally she was noted to have 2 mm and 3 mm superior segment right lower lobe and left lower lobe sub-solid pulmonary nodules that could represent granulomatous changes given the multiple bilateral calcified benign pulmonary granulomas surveillance was recommended. PET/CT was recommended but this was not done. The patient was recommended to undergo a bilateral breast biopsy when she was seen in July of 2019 which she did not do secondary to the coronal virus pandemic. She returns today to discuss biopsy. She has not noted any changes in her breast since her last visit. She continues to have right sided breast swelling. estrogen: none Family History: mother: ? cancer/bronchial father: lip cancer Hormonal History: menarche: 13 , breast fed: none, age at first : 21 menopause: 50 BCP: tubaligation done after tried one "batch" hormones: used to drink soy milk Surgical History: 1. tubiligation 2. cardiac stint 3. left laser eye surgery Medical History: 1. CA 2. uterine spotting told pre-cancer but seemed to resolve Social History: smoke: none stopped 50 years ago alcohol: none drugs: none - Constitutional Constitutional: Denies chills, Denies fever - EENT Eyes: denies blurred vision, denies pain Ears: deny: decreased hearing, tinnitus Ears, nose, mouth and throat: Denies headache, Denies sore throat - Breasts Breasts: bilateral: as per HPI - Cardiovascular Comment: CA, no aspirin or blood thinners - Respiratory Respiratory: Denies cough - Gastrointestinal Gastrointestinal: Denies abdominal pain, Denies diarrhea, Denies nausea, Denies vomiting - Genitourinary (Female) Genitourinary: Denies dysuria, Denies hematuria - Menstruation Menstruation: Reports postmenopausal - Musculoskeletal Comment: arthritis Musculoskeletal: Denies myalgias - Integumentary Comment: redness of right breast in the past - Neurological Neurological: Denies numbness, Denies weakness - Psychiatric Psychiatric: Reports anxiety, Denies depression - Endocrine Endocrine: Denies fatigue, Denies weight change - Hematologic/Lymphatic Comment: none - Allergic/Immunologic Allergic/Immunologic: Reports as per HPI Objective - Vital Signs Vital signs: Blood pressure 148/82 Pulse: 69 Respirations: 12 - Exam BMI 35 - Constitutional General appearance: Present: obese - EENT Eyes: Present: EOMI ENT: Present: hearing grossly normal - Neck Neck: Present: normal ROM - Respiratory Respiratory: bilateral: CTA - Cardiovascular Rhythm: regular Heart sounds: normal: S1, S2 - Gastrointestinal General gastrointestinal: Present: normal bowel sounds, soft - Integumentary Integumentary: Present: normal turgor - Musculoskeletal Musculoskeletal: Present: gait normal - Psychiatric Psychiatric: Present: A&O x's 3, appropriate affect, intact judgment & insight - Additional findings Additional findings: Breast Exam: BRA: 42DD inspection: Right breast is smaller than left breast has a skin lesion approximately 14 x 4 cm in size just inferior to the nipple areolar complex, which is suspicious for maligancy Palpation: Right breast: Large mass approximately 20 x 17 cm in size and is firm with some retraction of the nipple, there are skin changes inferior to this 14 x 4 cm in size which a plaque like in nature Right axilla: No cysts suspicious adenopathy palpated Left breast: Multi-positional exam no dominant masses or nodules of concern Left axilla: No adenopathy of concern Assessment and Plan Assessment: Impression: 1. CA 2. uterine spotting told pre-cancer but seemed to resolve 3. Mass right breast 4. Abnormal bilateral mammogram and ultrasound from approximately a year ago Plan: 1. Bilateral ultrasound-guided core biopsy 2. Follow-up after bilateral ultrasound-guided core biopsy Risks and benefits of the procedure were discussed with the patient. The patient is very concerned that fungal cultures be obtained. I discussed this with the pathology Department and they have stated that they can do the fungal cultures sent as we sent the specimen that is not in preservative. This will be discussed with radiology. The patient understands risks and benefits and has agreed to proceed at this time. Cc: Dr. Dobson encounter 30 minutes, > 50% of time in planning and counselling
== END | disposition home or self-care (01) ==
LOC: WWCWWP 14:26
PROVIDERS: ATTEND Surgery
DX: Z53.9 Procedure and treatment not carried out, unspecified reason (principal)

== ENCOUNTER → 2020-02-28 | Day surgery (SDC) | payer MEDICARE, OTHER ==
[2020-02-28 15:22] VITALS: BP 155/78; PULSE 60; RESP 18; TEMP 98.4
--- NOTE | 2020-02-28 17:45 | USB ---
EXAMINATION TYPE: US biopsy breast VAD LT, US biopsy breast VAD RT, US biopsy breast VAD RT DATE OF EXAM: 02/28/2020 CLINICAL HISTORY: R92.8 Abnormal Mammogram. Patient requesting specimen submitted for fungal microbiology culture. TECHNIQUE: Ultrasound guided core biopsy of the bilateral breasts. COMPARISON: Outside institution right breast ultrasound 07/18/2019. Diagnostic mammogram 02/16/2019. Bilateral breast ultrasound 02/16/2019. FINDINGS: The procedure of ultrasound guided core biopsy was explained to the patient. Benefits, alternatives, and risks were discussed. An informed consent was then obtained. Left breast biopsy: The patient was first placed in right posterior oblique positioning. The left breast overlying skin was prepped and draped in usual sterile fashion. 1% lidocaine was used as anesthetic into the skin and subcutaneous tissue up to area of concern in the left breast 3:00 zone A. A elizabeth was made with surgical scalpel. Under ultrasound guidance, a 17-gauge core introducer needle was advanced into the left breast 3:00 hypoechoic mass, the stylet was removed, and an 18-gauge coaxial core biopsy needle was advanced for core biopsy sampling. This was repeated for a total of 5 core biopsies. 1 core biopsy specimen was submitted for microbiology. 4 core biopsy specimens were submitted for histopathology. No biopsy clip was placed in this lesion at the request of the patient. Right breast biopsy x2: The patient was subsequently placed in left posterior oblique positioning. The right breast overlying skin was prepped and draped in usual sterile fashion. 1% lidocaine was used as anesthetic into the skin and subcutaneous tissue up to the area of concern in the right breast 9:00. Under ultrasound guidance, a 17- gauge core introducer needle was advanced into the right breast 9:00 hypoechoic mass, the stylet was removed, and an 18-gauge coaxial core biopsy needle was advanced for core biopsy sampling. This was repeated for a total of 1 core biopsy, which was submitted for microbiology. The coaxial core biopsy needle was removed. Under ultrasound guidance, a 12-gauge vacuum assisted biopsy gun device was advanced into the right breast 9:00 hypoechoic mass and used to obtain 4 additional core samples which were submitted for histopathology. A total of 5 core biopsy specimens were obtained. Following this, a biopsy clip was left in the lesion. 1% lidocaine was used as anesthetic into the skin and subcutaneous tissue up to the area of concern in the right breast 10:00. Under ultrasound guidance, a 12- gauge vacuum assisted biopsy gun device was advanced into the right breast 10:00 hypoechoic mass and used to obtain core biopsy specimen. A total of 5 core biopsy specimens were obtained and submitted for histopathology. No biopsy clip was placed in this lesion at the request of the patient. The patient tolerated the procedure well without any immediate complication. The patient was kept in the radiology department for short stay after the procedure and then discharged home in stable condition. IMPRESSION: Successful, uncomplicated ultrasound guided core biopsy x3 of areas of concern in the bilateral breasts, full pathology results to follow. Pathology Results: Malignant A. LEFT BREAST, SITE A, THREE O'CLOCK , ULTRASOUND GUIDED CORE BIOPSY: Benign breast with stromal fibrosis. B. RIGHT BREAST, SITE B, NINE O'CLOCK, ULTRASOUND GUIDED CORE BIOPSY: Invasive moderately differentiated ductal carcinoma (grade 2). See Surgical Pathology Cancer Case Summary. C. RIGHT BREAST, SITE C, TEN O'CLOCK, ULTRASOUND GUIDED CORE BIOPSY: Invasive moderately differentiated ductal carcinoma (grade 2). See Surgical Pathology Cancer Case Summary. Recommendation Surgical consult right breast. Second look ultrasound 6 o'clock right breast indicated as site of redness on outside 07/18/19 ultrasound. Post biopsy diagnostic right mammogram. Consider MRI to assess disease extent. MTDD
== END ==
LOC: RADUSWWP 09:28
PROVIDERS: ATTEND Surgery
DX: N60.32 Fibrosclerosis of left breast (principal); C50.811 Malignant neoplasm of overlapping sites of right female breast; C50.411 Malignant neoplasm of upper-outer quadrant of right female breast; Z88.5 Allergy status to narcotic agent; Z88.8 Allergy status to other drugs, medicaments and biological substances
CPT/HCPCS: 19083; 88305; 88342; 88341; 87070; 87205; 87075; 87102; 19084 ×2; A4648; J2001

== ENCOUNTER → 2020-03-07 | Outpatient (CLI) | payer MEDICARE, OTHER ==
[2020-03-07 13:48] VITALS: BP 192/75; PULSE 64; RESP 16; TEMP 97.7
--- NOTE | 2020-03-07 14:09 | P.PN ---
Subjective Progress Note Date: 03/07/20 Principal diagnosis: right breast cancer. stage IIIB [id number] Kat is a 69-year-old white female status post core biopsy of the right and left breast. Core biopsy of the left breast was benign. 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 Based on the skin changes it is believed that this is a T4 N0 M0 ER + RI +[id number] tumor which would be a stage IIIB. The patient is here with her friend however him she states is a prophetess. I have recommended she be seen by medical oncology for possible shrinkage of the tumor prior to any surgical intervention. Objective - Vital Signs Vital signs: Vital Signs Temp 97.7 F 03/07/20 13:40 Pulse 64 03/07/20 13:40 Resp 16 03/07/20 13:40 BP 192/75 03/07/20 13:40 Pulse Ox 95 03/07/20 13:40 Intake & Output 03/06/20 03/07/20 03/07/20 18:59 06:59 18:59 Weight 92.079 kg - Exam BMI 35.4 - Constitutional General appearance: Present: obese - EENT Eyes: Present: EOMI ENT: Present: hearing grossly normal - Respiratory Respiratory: bilateral: CTA - Cardiovascular Rhythm: regular Heart sounds: normal: S1, S2 - Integumentary Integumentary Comment(s): Right breast biopsy site with ecchymosis left breast no evidence of infection - Musculoskeletal Musculoskeletal: Present: gait normal - Psychiatric Psychiatric Comment(s): Patient is here with her friend wishes states is a prophetess and keeps saying that she knows she will be fine Assessment and Plan Assessment: Impression: 1. stage IIIB right breast cancer 2. history of AK 3. history of uterine spotting Plan: 1. Appointment with medical oncology 2. PET/CT 3. Presentation of case at tumor board CC:Livia Torres encounter 25 minutes,> 50% of time in planning and counselling
== END | disposition home or self-care (01) ==
LOC: WWCWWP 12:42
PROVIDERS: ATTEND Surgery
DX: Z53.9 Procedure and treatment not carried out, unspecified reason (principal)

== ENCOUNTER → 2020-03-15 | Outpatient (CLI) | payer MEDICARE, OTHER ==
--- NOTE | 2020-03-15 16:51 | PE ---
Nuclear medicine PET/CT HISTORY: Breast carcinoma, initial Patient received 13.1 mCi F-18 FDG intravenously in delayed scanning was performed from the skull bas e to the mid thighs. Localization and attenuation correction CT scan was performed. Correlation to ultrasound right breast 07/18/2019 Chest and neck: There is no supraclavicular or cervical adenopathy. The left upper lobe shows a soft tissue mass present measuring 3 cm and there is associated uptake. There are coronary artery calcific ations present. There is no pleural or pericardial effusion. Right breast shows some associated hyper metabolic uptake. Question right axillary node with some mild uptake. Calcified hilar nodes are prese nt on the right, calcifications in the right lower lobe consistent with old granulomatous disease. ABDOMEN: There is no adrenal mass, no liver mass. No retroperitoneal adenopathy or ascites. Osseous structures show no suspicious uptake. IMPRESSION: Findings compatible with patient's history of breast carcinoma. Left upper lobe mass is s uspicious for either bronchogenic carcinoma or metastatic disease.
== END | disposition home or self-care (01) ==
LOC: RADPETMAIN 13:29
PROVIDERS: ATTEND Surgery
DX: C50.411 Malignant neoplasm of upper-outer quadrant of right female breast (principal)
CPT/HCPCS: 78815; A9552

== ENCOUNTER → 2020-05-14 | Outpatient (CLI) | payer MEDICARE, OTHER ==
--- NOTE | 2020-05-14 17:05 | BD ---
EXAMINATION TYPE: Axial Bone Density DATE OF EXAM: 05/14/2020 COMPARISON: NONE CLINICAL HISTORY: 69 YR OLD FEMALE.....ICD-10 CODE: Z79.890 POST MENOPAUSAL Height: 60.8 Weight: 204 FRAX RISK QUESTIONS: Family History (Parent hip fracture): YES RISK FACTORS HISTORY OF: Family History of Osteoporosis: YES, MOTHER, WITH BROKEN HIP Diet low in dairy products/other sources of calcium: YES, A BIT LOW Postmenopausal woman: YES, AT 58 YRS OLD Lost more than 2 inches in height since high school: YES Hyperparathyroidism: NO Adrenal Insufficiency: NO MEDICATIONS: Thyroid Medications: YES, IODINE ONLY Additional Medications: BP MEDS, CALCIUM AND VITAMIN D Additional History: ANASTROZOLE, RT BREAST CANCER, TRYING TO SHRINK THE CANCER EXAM MEASUREMENTS: Bone mineral densitometry was performed using the [employer] System. Bone mineral density as measured about the Lumbar spine is: ----- L1-L4(G/cm2): 1.442 T Score Values are as follows: ----- L1: 1.6 ----- L2: 1.4 ----- L3: 2.8 ----- L4: 2.7 ----- L1-L4: 2.2 Bone mineral density FIRST BONE DENSITY.....BASELINE STUDY Bone mineral density about the R hip (g/cm2): 1.109 Bone mineral density about the L hip (g/cm2): 1.111 T Score values are as follows: -----R Neck: -0.6 -----L Neck: -0.6 -----R Total: 0.8 -----L Total: 0.8 Bone mineral density IS A BASELINE STUDY FRAX%s: THERE IS A 11.4% CHANCE FOR A MAJOR OSTEOPOROTIC FX AND A 1.1% FOR HIP........PROBABILITY FOR FX IN 10 YRS TIME IMPRESSION: Normal (Values between +1 and -1 indicate normal bone mass). Consider repeating this study in 5 year s or sooner if there is some new clinical indication. NOTE: T-SCORE=SD OF THE YOUNG ADULT MEAN.
== END | disposition home or self-care (01) ==
LOC: RADBDWWP 12:24
PROVIDERS: ATTEND Internal Medicine Hematology & Oncology
DX: C50.211 Malignant neoplasm of upper-inner quadrant of right female breast (principal); Z79.890 Hormone replacement therapy; Z88.5 Allergy status to narcotic agent; Z92.21 Personal history of antineoplastic chemotherapy
CPT/HCPCS: 77080

== ENCOUNTER → 2020-06-12 | Outpatient (CLI) | payer MEDICARE, OTHER ==
[2020-06-12 23:58] LABS: African American GFR (CKD) 102.5 (60.0-200.0); Albumin 4.7 g/dL (3.80-4.90); Albumin/Globulin Ratio 2.24 (1.60-3.17); Anion Gap 7.2 mmol/L (4.00-12.00); BUN/Creat Ratio 15.71 Ratio (12.00-20.00); Calcium 9.7 mg/dL (8.7-10.3); Carbon Dioxide 26.8 mmol/L (21.6-31.8); Chol/HDL Ratio 3.79; Globulin 2.1 g/dL (1.6-3.3); Non-African American GFR(CKD) 88.4 (60.0-200.0); Total Bilirubin 0.7 mg/dL (0.3-1.2); Total Protein 6.8 g/dL (6.2-8.2)
[2020-06-13 00:53] LABS: Estimated Average Glucose 102.54; Hemoglobin A1C 5.2 % (4.0-6.0)
== END | disposition home or self-care (01) ==
LOC: LABWHC1 11:26
PROVIDERS: ATTEND Family Medicine
DX: Z00.00 Encounter for general adult medical examination without abnormal findings (principal); R79.89 Other specified abnormal findings of blood chemistry
CPT/HCPCS: 36415; 80053; 80061; 82306; 83036; 84443

== ENCOUNTER → 2020-06-12 | Outpatient (CLI) | payer MEDICARE, OTHER | END | disposition home or self-care (01) | LOC: LABWHC1 11:30 | PROVIDERS: ATTEND Ophthalmology | DX: Z53.9 Procedure and treatment not carried out, unspecified reason (principal) | CPT/HCPCS: 36415; 82947 ==

== ENCOUNTER → 2020-07-22 | Outpatient (CLI) | payer MEDICARE, OTHER ==
[2020-07-22 13:59] LABS: African American GFR (CKD) >90 (>60 ml/min/1.73 sqM); Blood Urea Nitrogen 16 mg/dL (7-17); Non-African American GFR(CKD) 90 (>60 ml/min/1.73 sqM)
--- NOTE | 2020-07-22 14:36 | CT ---
EXAMINATION TYPE: CT chest w con DATE OF EXAM: 07/22/2020 COMPARISON: Prior chest CT July 12, 2017. Prior PET/CT March 15, 2020 HISTORY: Right sided BREAST CA CT DLP: 498.8 mGycm. Automated Exposure Control for Dose Reduction was Utilized. TECHNIQUE: CT scan of the thorax is performed following with IV Contrast, patient injected with 100 mL of Isovue 300. FINDINGS: LUNGS: Persistent 3.1 x 2.9 cm superior left lower lobe mass fairly stable in size from recent PET/CT . Medial to this is stable calcified 6 mm nodule or granuloma and inferior similar lesion on image 24 . Stable 10 mm right basilar calcified nodule or granuloma axial image 33. No new nodules or masses. No pleural effusion or pneumothorax. MEDIASTINUM: There are prominent but calcified right hilar along with left hilar, subcarinal, and AP window. Stable 2.0 x 1.1 cm left hilar lymph node axial image 25. 0.7 cm right thyroid nodule coronal image 39. More prominent or larger than 2018 CT. OTHER: Bilateral breast not included in field of view. Exaggerated kyphosis with moderate multilevel spurring. IMPRESSION: Stable 3.1 cm superior left lower lobe mass from most recent PET/CT worrisome for neoplas m. No new masses or adenopathy. Evidence of old granulomatous disease redemonstrated.
== END ==
LOC: RADCTMAIN 13:01
PROVIDERS: ATTEND Internal Medicine Hematology & Oncology
DX: C50.211 Malignant neoplasm of upper-inner quadrant of right female breast (principal); D71 Functional disorders of polymorphonuclear neutrophils
CPT/HCPCS: 82565; 84520; 71260; 36415; Q9967

== ENCOUNTER 2020-08-27 20:31 | Inpatient (IN) | payer MEDICARE, OTHER ==
[2020-08-27] MEDS ORDERED: DEXAMETHASONE SOD PHOSPHATE 10 MG/ML 1 ML VIAL IV STA (20:56)
[2020-08-27] MEDS ORDERED: ACETAMINOPHEN TAB 500 MG TAB PO STA (20:56)
--- NOTE | 2020-08-27 20:57 | ED ---
General Adult HPI - General Chief complaint: Upper Respiratory Infection Stated complaint: GIANNA Time Seen by Provider: 08/27/20 20:36 Source: patient Mode of arrival: ambulatory Limitations: no limitations - History of Present Illness Initial comments: Dictation was produced using [employer] dictation software. please excuse any grammatical, word or spelling errors. This patient was cared for during a federal and state declared state of emergency secondary to Covid 19 Chief Complaint: 70-year-old male presents with shortness of breath History of Present Illness: A 70-year-old female she has past medical history of breast cancer, hypertension myocardial infarction. Presents to the emergency department for 6 days of cold symptoms. Her tested positive and now is admitted to the hospital. States that she has exertional dyspnea. She does have a pulse oximeter home noted that her oxygen saturation dropped to 70 percents with ambulating around her house. She has been having fevers. She does have diarrhea. Patient is hypoxic for EMS. The ROS documented in this emergency department record has been reviewed and confirmed by me. Those systems with pertinent positive or negative responses have been documented in the HPI. All other systems are other negative and/or noncontributory. PHYSICAL EXAM: General Impression: Alert and oriented x3, not in acute distress HEENT: Normocephalic atraumatic, extra-ocular movements intact, pupils equal and reactive to light bilaterally, mucous membranes moist. Cardiovascular: Heart regular rate and rhythm Chest: Able to complete full sentences, no retractions, no tachypnea Abdomen: abdomen soft, non-tender, non-distended, no organomegaly Musculoskeletal: Pulses present and equal in all extremities, no peripheral edema Motor: no focal deficits noted Neurological: CN II-XII grossly intact, no focal motor or sensory deficits noted Skin: Intact with no visualized rashes Psych: Normal affect and mood ED course: 70yo old female presents to the emergency department for Covid symptoms. She is high risk exposure. She is hypoxic on arrival with 88% with a temperature of 102.9. Rest of vital signs within acceptable limits. Laboratory evaluation obtained. CBC unremarkable. Metabolic panel shows sodium of 130. CRP of 7.3. Coronal virus is positive. D-dimer is 1.38. Chest x-ray shows ground glass opacities bilaterally. CT angios the chest was ordered. CT angiogram of the chest shows no evidence for pulmonary embolism. Patient will be admitted for hypoxic respiratory failure secondary to Covid 19. Case was discussed with Dr. Taylor who is willing to accept patients care for admission. Pulmonology will be consulted. Patient was given Decadron and T ylenol. EKG interpretation: Ventricular rate E, sinus rhythm,. Interval 152, QRS 76, QTC 419. No [place] prolongation, no QTC prolongation, no ST or T-wave changes noted. EKG compared to 07/09/2017 showing no changes. Overall, this EKG is unremarkable - Related Data Home Medications Medication Instructions Recorded Confirmed Anastrozole 1 mg PO HS 03/19/20 08/27/20 Metoprolol Tartrate [Lopressor] 12.5 mg PO HS 08/27/20 08/27/20 Allergies Allergy/AdvReac Type Severity Reaction Status Date / Time codeine AdvReac Nausea & Verified 08/27/20 21:16 Vomiting EYE DROPS WITH PRESERVATIVE/ Allergy Unknown Uncoded 08/27/20 21:16 SULPA Review of Systems ROS Statement: Those systems with pertinent positive or pertinent negative responses have been documented in the HPI. ROS Other: All systems not noted in ROS Statement are negative. Past Medical History Past Medical History: Cancer, Hypertension, Myocardial Infarction ([place]), Osteoarthritis (OA) Additional Past Medical History / Comment(s): 2-5-18 stemi, Breast CA, lung nodule Last Myocardial Infarction Date:: 06/14/2017 History of Any Multi-Drug Resistant Organisms: None Reported Past Surgical History: Heart Catheterization With Stent, Tubal Ligation Additional Past Surgical History / Comment(s): 2-5-18 heart cath w/ stent rca . other past sx:D&C, laser lt eye sx. Past Anesthesia/Blood Transfusion Reactions: Motion Sickness, Postoperative Nausea & Vomiting (PONV) Date of Last Stent Placement:: 06/14/2017 Past Psychological History: No Psychological Hx Reported Smoking Status: Former smoker Past Alcohol Use History: None Reported Past Drug Use History: None Reported - Past Family History Mother Family Medical History: CVA/TIA Father Family Medical History: Cancer Additional Family Medical History / Comment(s): LIP General Exam Limitations: no limitations Course Vital Signs 08/27/20 08/27/20 08/28/20 20:47 23:08 04:51 Temperature 102.9 F H 99.1 F 98 F Pulse Rate 80 65 68 Respiratory 24 20 18 Rate Blood Pressure 129/62 103/51 104/81 O2 Sat by Pulse 88 L 93 L 93 L Oximetry Medical Decision Making - Lab Data Result diagrams: 08/27/20 21:04 08/27/20 21:04 Lab Results 08/27/20 08/27/20 08/27/20 Range/Units 21:04 21:04 21:04 WBC 5.4 (3.8-10.6) k/uL RBC 4.56 (3.80-5.40) m/uL Hgb 13.9 (11.4-16.0) gm/dL Hct 41.9 (34.0-46.0) % MCV 91.8 (80.0-100.0) fL MCH 30.4 (25.0-35.0) pg MCHC 33.1 (31.0-37.0) g/dL RDW 12.9 (11.5-15.5) % Plt Count 119 L (150-450) k/uL MPV 8.0 Neutrophils % 90 % Lymphocytes % 7 % Monocytes % 2 % Eosinophils % 0 % Basophils % 0 % Neutrophils # 4.9 (1.3-7.7) k/uL Lymphocytes # 0.4 L (1.0-4.8) k/uL Monocytes # 0.1 (0-1.0) k/uL Eosinophils # 0.0 (0-0.7) k/uL Basophils # 0.0 (0-0.2) k/uL D-Dimer 1.38 H (<0.60) mg/L FEU Sodium 130 L (137-145) mmol/L Potassium 4.3 (3.5-5.1) mmol/L Chloride 101 (98-107) mmol/L Carbon Dioxide 21 L (22-30) mmol/L Anion Gap 8 mmol/L BUN 12 (7-17) mg/dL Creatinine 0.52 (0.52-1.04) mg/dL Est GFR (CKD-EPI)AfAm >90 (>60 ml/min/1.73 sqM) Est GFR (CKD-EPI)NonAf >90 (>60 ml/min/1.73 sqM) Glucose 158 H (74-99) mg/dL Plasma Lactic Acid Gerard (0.7-2.0) mmol/L Calcium 8.4 (8.4-10.2) mg/dL Magnesium 1.9 (1.6-2.3) mg/dL Troponin I (0.000-0.034) ng/mL C-Reactive Protein 7.3 H (<1.0) mg/dL Coronavirus (PCR) (Not Detectd) 08/27/20 08/27/20 08/27/20 Range/Units 21:04 21:04 21:04 WBC (3.8-10.6) k/uL RBC (3.80-5.40) m/uL Hgb (11.4-16.0) gm/dL Hct (34.0-46.0) % MCV (80.0-100.0) fL MCH (25.0-35.0) pg MCHC (31.0-37.0) g/dL RDW (11.5-15.5) % Plt Count (150-450) k/uL MPV Neutrophils % % Lymphocytes % % Monocytes % % Eosinophils % % Basophils % % Neutrophils # (1.3-7.7) k/uL Lymphocytes # (1.0-4.8) k/uL Monocytes # (0-1.0) k/uL Eosinophils # (0-0.7) k/uL Basophils # (0-0.2) k/uL D-Dimer (<0.60) mg/L FEU Sodium (137-145) mmol/L Potassium (3.5-5.1) mmol/L Chloride (98-107) mmol/L Carbon Dioxide (22-30) mmol/L Anion Gap mmol/L BUN (7-17) mg/dL Creatinine (0.52-1.04) mg/dL Est GFR (CKD-EPI)AfAm (>60 ml/min/1.73 sqM) Est GFR (CKD-EPI)NonAf (>60 ml/min/1.73 sqM) Glucose (74-99) mg/dL Plasma Lactic Acid Gerard 1.1 (0.7-2.0) mmol/L Calcium (8.4-10.2) mg/dL Magnesium (1.6-2.3) mg/dL Troponin I <0.012 (0.000-0.034) ng/mL C-Reactive Protein (<1.0) mg/dL Coronavirus (PCR) Detected A (Not Detectd) Critical Care Time Critical Care Time: Yes Total Critical Care Time: 33 Disposition Clinical Impression: COVID-19 Disposition: ADMITTED IP TO THIS HOSP Condition: Fair Decision Time: 14:59
[2020-08-27 21:23] LABS: Basophils % (A) 0 %; Eosinophils % (A) 0 %; HCT 41.9 % (34.0-46.0); HGB 13.9 gm/dL (11.4-16.0); Lymphocytes # (A) 0.4 k/uL (1.0-4.8); Lymphocytes % (A) 7 %; MCH 30.4 pg (25.0-35.0); MCHC 33.1 g/dL (31.0-37.0); MCV 91.8 fL (80.0-100.0); Monocytes # (A) 0.1 k/uL (0-1.0); Monocytes % (A) 2 %; Neutrophils # (A) 4.9 k/uL (1.3-7.7); Neutrophils % (A) 90 %; Platelet Count 119 k/uL (150-450); RBC 4.56 m/uL (3.80-5.40); RDW 12.9 % (11.5-15.5); WBC 5.4 k/uL (3.8-10.6)
[2020-08-27 21:31] LABS: African American GFR (CKD) >90 (>60 ml/min/1.73 sqM); Anion Gap 8 mmol/L; Blood Urea Nitrogen 12 mg/dL (7-17); C Reactive Protein 7.3 mg/dL (<1.0); Calcium 8.4 mg/dL (8.4-10.2); Carbon Dioxide 21 mmol/L (22-30); Chloride 101 mmol/L (98-107); Glucose 158 mg/dL (74-99); Magnesium 1.9 mg/dL (1.6-2.3); Non-African American GFR(CKD) >90 (>60 ml/min/1.73 sqM); Potassium 4.3 mmol/L (3.5-5.1); Sodium 130 mmol/L (137-145)
--- NOTE | 2020-08-27 21:48 | XR ---
EXAMINATION TYPE: XR chest 1V portable DATE OF EXAM: 08/27/2020 CLINICAL HISTORY: covid. Fever. Shortness of breath. TECHNIQUE: Portable frontal view of the chest. COMPARISON: 07/09/2017 chest radiograph FINDINGS: There is prominent cardiac silhouette. There is pulmonary vascular congestion and diffuse m ultifocal haziness of the bilateral lungs. No pleural effusion or pneumothorax. No acute osseous abno rmality. IMPRESSION: Pulmonary vascular congestion and multifocal haziness of the bilateral lungs. Findings m ay represent CHF, interstitial edema, or atypical pneumonitis including Covid 19.
[2020-08-27] MEDS ORDERED: ONDANSETRON 4 MG/2 ML VIAL IVP PRN (22:29)
[2020-08-27] MEDS ORDERED: NALOXONE 0.4 MG/ML 1 ML VIAL IV PRN (22:29)
[2020-08-27] MEDS ORDERED: ACETAMINOPHEN TAB 325 MG TAB PO PRN (22:29)
--- NOTE | 2020-08-27 23:06 | CT ---
EXAMINATION TYPE: CT angio chest DATE OF EXAM: 08/27/2020 COMPARISON: None HISTORY: elevated d-dimer CT DLP: 495.1 mGycm Automated exposure control for dose reduction was used. CONTRAST: Performed with IV Contrast, patient injected with 70ml mL of Isovue 370. There are 3-D post processed images. There is no mediastinal adenopathy. There are a few bilateral bronchial lymph nodes measuring up to 1 .5 cm. There is moderate patchy bilateral pulmonary interstitial and airspace infiltrates. This is so me consolidation in the left lower lobe with 3 cm masslike infiltrate in the superior segment left lo wer lobe. There is no pleural effusion. There is no pericardial effusion. There is no evidence of filling defect in the pulmonary arteries. Thoracic aorta is intact. There is no aneurysm or dissection. The bony thorax is intact. IMPRESSION: Extensive bilateral pulmonary infiltrates appear new compared to recent exam of 07/22/2020 and consist ent with multifocal pneumonia. Mild bronchial adenopathy is likely inflammatory. No evidence of pulmonary embolism.
[2020-08-28] MEDS: SODIUM CHLORIDE 0.9% 1,000 ML IV SCH ×2 (08:11→23:51)
--- NOTE | 2020-08-28 13:40 | P.CNPUL ---
History of Present Illness Consult date: 08/28/20 Requesting physician: Tejinder Taylor Reason for consult: dyspnea, cough, hypoxemia, pneumonia, abnormal CXR/CT Chief complaint: COVID 19 pneumonia, hypoxemia. History of present illness: 70-year-old female, with a history of breast cancer, hypertension, myocardial infarction, who presents to the emergency department with shortness of breath, and cold symptoms since August 20. Apparently the patient has an oximeter at home, and her saturations dropped to 70%. She complained of significant exer tional dyspnea. Her apparently tested positive for coronavirus, and is admitted to the hospital as well. The patient was seen in the emergency department. She was only on 2 L nasal cannula. There is no evidence of acute respiratory distress. No evidence of any conversational dyspnea or use of accessory muscles. White count was 5.4, hemoglobin 13.9, hematocrit 41.9, platelet 119,000. D-dimer was 1.38. Sodium 1:30, potassium 4.3, chlorides 101, CO2 21, anion gap 8, BUN 12, creatinine 0.52. Lactic acid 1.1. C-reactive protein was 7.3. Chest x-ray showed diffuse bilateral infiltrates, and computed tomography scan showed extensive bilateral pulmonary infiltrates, consistent wit h atypical pneumonia. The patient apparently has a history of breast cancer, hypertension, myocardial infarction, and osteoarthritis. She has had a heart catheterization with stent, to the right coronary artery, in June 2017. Review of Systems REVIEW OF SYSTEMS: CONSTITUTIONAL: [Negative.] NEUROLOGIC: [ Negative.] HEENT: [ Negative.] CARDIAC: [Negative.] PULMONARY: Shortness of breath on exertion, but low saturations. GI: [Negative.] : [Negative.] RHEUMATOLOGIC: [ Negative.] IMMUNOLOGIC: [ Negative.] ENDOCRINE: [Negative. ] DERMATOLOGIC: [Negative.] Past Medical History Past Medical History: Cancer, Hypertension, Myocardial Infarction ([place]), Osteoarthritis (OA) Additional Past Medical History / Comment(s): 2-5-18 stemi, Breast CA, lung nodule Last Myocardial Infarction Date:: 06/14/2017 History of Any Multi-Drug Resistant Organisms: None Reported Past Surgical History: Heart Catheterization With Stent, Tubal Ligation Additional Past Surgical History / Comment(s): 2-5-18 heart cath w/ stent rca . other past sx:D&C, laser lt eye sx. Past Anesthesia/Blood Transfusion Reactions: Motion Sickness, Postoperative Nausea & Vomiting (PONV) Date of Last Stent Placement:: 06/14/2017 Past Psychological History: No Psychological Hx Reported Smoking Status: Former smoker Past Alcohol Use History: None Reported Past Drug Use History: None Reported - Past Family History Mother Family Medical History: CVA/TIA Father Family Medical History: Cancer Additional Family Medical History / Comment(s): LIP Medications and Allergies Home Medications Medication Instructions Recorded Confirmed Type Anastrozole 1 mg PO HS 03/19/20 08/27/20 History Metoprolol Tartrate [Lopressor] 12.5 mg PO HS 08/27/20 08/27/20 History Allergies Allergy/AdvReac Type Severity Reaction Status Date / Time codeine AdvReac Nausea & Verified 08/27/20 21:16 Vomiting EYE DROPS WITH PRESERVATIVE/ Allergy Unknown Uncoded 08/27/20 21:16 SULPA Physical Exam Osteopathic Statement: *. No significant issues noted on an osteopathic structural exam other than those noted in the History and Physical/Consult. Vitals: Vital Signs Temp Pulse Resp BP Pulse Ox 08/28/20 04:51 98 F 68 18 104/81 93 L 08/27/20 23:08 99.1 F 65 20 103/51 93 L 08/27/20 20:47 102.9 F H 80 24 129/62 88 L Intake and Output 08/27/20 08/28/20 08/28/20 22:59 06:59 14:59 Other: Weight 90.718 kg No acute distress, oriented 3. No conversational dyspnea or use of accessory muscles. On 2 L nasal O2, saturations 93%. Room air saturation 88%. HEENT examination is grossly unremarkable. Neck supple. Full range of motion. No adenopathy thyromegaly or neck vein distention. Cardiovascular examination reveals regular rhythm rate. S1-S2 normal. No S3 or S4. No discernible murmur noted. Heart rate 68 bpm. Lungs reveal scattered rhonchi and crackles. No wheezes. Breath sounds equal bilaterally. Abdomen soft bowel sounds are heard. No masses or tenderness. Extremities are intact. No cyanosis clubbing or edema. Skin is without rash or lesion. Neurologic examination is brief but nonfocal. Results - Laboratory Findings CBC and BMP: 08/27/20 21:04 08/27/20 21:04 PT/INR, D-dimer D-Dimer 1.38 mg/L FEU (<0.60) H 08/27/20 21:04 Abnormal lab findings: Abnormal Labs 08/27/20 08/27/20 08/27/20 21:04 21:04 21:04 Plt Count 119 L Lymphocytes # 0.4 L D-Dimer 1.38 H Sodium 130 L Carbon Dioxide 21 L Glucose 158 H C-Reactive Protein 7.3 H Coronavirus (PCR) 08/27/20 21:04 Plt Count Lymphocytes # D-Dimer Sodium Carbon Dioxide Glucose C-Reactive Protein Coronavirus (PCR) Detected A - Diagnostic Findings Chest x-ray: image reviewed CT scan - chest: image reviewed Assessment and Plan Assessment: Acute hypoxemic respiratory failure secondary to COVID 19 pneumonitis. No evidence of pulmonary embolism on CT angiogram. History of essential hypertension. Prior history of myocardial infarction. History of breast cancer. History of pulmonary nodule. Status post previous catheterization with stent placement in the right coronary artery, June 2017. Prior history of tobacco use. Plan: Plan dated 08/28/2020. The patient is beyond the window for REM. The patient is not sick enough to receive TOCI. The patient should be on Decadron 6 mg daily, Lovenox 40 mg subcu daily, vitamin C, vitamin D3, and zinc. Additional recommendations and suggestions are forthcoming. We will continue to follow. Prognosis is guarded. Repeat chest x-ray, and inflammatory markers in 2 or 3 days. Time with Patient: Greater than 30
--- NOTE | 2020-08-28 18:50 | P.HPIM ---
History of Present Illness H&P Date: 08/28/20 Kat Kim, is a 70 year old female patient of Dr Dobson, who presented to [facility] emergency room with a chief complaint of upper respiratory infection and cough, patient stated that her symptoms started 1 week ago, and that her tested positive for COVID-19 and is now admitted to the hospital, patient was also having shortness of breath, fever, diarrhea, and low oxygen saturation. She was evaluated in the emergency room vital examination on presentation revealed a temperature of 102.9 pulse 80 respiration 24 blood pressure 129/62 pulse ox 88% on room air laboratory data revealed a white blood count of 5.4 hemoglobin 13.9 platelet count 119 d-dimer was elevated at 1.38 sodium 1:30 potassium 4.3 chloride 101 CO2 21 BUN 12 creatinine 0.5 to C-reactive protein was elevated at 7.3 chloride 105 his PCR was positive, chest x-ray done in the emergency room revealed pulmonary vascular congestion and multifocal hazyness in bilateral lungs. EKG revealed sinus rhythm with premature atrial complexes and T-wave inversion in inferior leads, CT angiogram of the chest was done in the emergency room and revealed extensive bilateral pulmonary infiltrates consistent with multifocal pneumonia, there was no evidence of pulmonary embolism. Patient was admitted to telemetry floor, she was started on IV dexamethasone subcu Lovenox and oxygen supplements , pulmonary consultation was requested. Past Medical History Past Medical History: Cancer, Hypertension, Myocardial Infarction ([place]), Osteoarthritis (OA) Additional Past Medical History / Comment(s): 2-5-18 stemi, Breast CA, lung nodule Last Myocardial Infarction Date:: 06/14/2017 History of Any Multi-Drug Resistant Organisms: None Reported Past Surgical History: Heart Catheterization With Stent, Tubal Ligation Additional Past Surgical History / Comment(s): 2-5-18 heart cath w/ stent rca . other past sx:D&C, laser lt eye sx. Past Anesthesia/Blood Transfusion Reactions: Motion Sickness, Postoperative Nausea & Vomiting (PONV) Date of Last Stent Placement:: 06/14/2017 Past Psychological History: No Psychological Hx Reported Smoking Status: Former smoker Past Alcohol Use History: None Reported Past Drug Use History: None Reported - Past Family History Mother Family Medical History: CVA/TIA Father Family Medical History: Cancer Additional Family Medical History / Comment(s): LIP Medications and Allergies Home Medications Medication Instructions Recorded Confirmed Type Anastrozole 1 mg PO HS 03/19/20 08/27/20 History Metoprolol Tartrate [Lopressor] 12.5 mg PO HS 08/27/20 08/27/20 History Allergies Allergy/AdvReac Type Severity Reaction Status Date / Time codeine AdvReac Nausea & Verified 08/27/20 21:16 Vomiting EYE DROPS WITH PRESERVATIVE/ Allergy Unknown Uncoded 08/27/20 21:16 SULPA Physical Exam Vitals: Vital Signs Temp Pulse Resp BP Pulse Ox 08/28/20 15:33 62 18 128/76 93 L 08/28/20 04:51 98 F 68 18 104/81 93 L 08/27/20 23:08 99.1 F 65 20 103/51 93 L 08/27/20 20:47 102.9 F H 80 24 129/62 88 L In general patient is alert and oriented 3 in no apparent distress HEENT head normocephalic and atraumatic Neck is supple no JVD no goiter no lymphadenopathy Chest exam reveals a few scattered crackles no wheezing Cardiac exam reveals regular heart sounds no gallops no murmurs Abdomen is soft nontender no organomegaly with normal bowel sounds Extremity exam reveals no edema no cyanosis or clubbing Neurological examination reveals no gross focal deficit Results CBC & Chem 7: 08/27/20 21:04 08/27/20 21:04 Labs: Abnormal Lab Results - Last 24 Hours (Table) 08/27/20 08/27/20 08/27/20 Range/Units 21:04 21:04 21:04 Plt Count 119 L (150-450) k/uL Lymphocytes # 0.4 L (1.0-4.8) k/uL D-Dimer 1.38 H (<0.60) mg/L FEU Sodium 130 L (137-145) mmol/L Carbon Dioxide 21 L (22-30) mmol/L Glucose 158 H (74-99) mg/dL C-Reactive Protein 7.3 H (<1.0) mg/dL Coronavirus (PCR) (Not Detectd) 08/27/20 Range/Units 21:04 Plt Count (150-450) k/uL Lymphocytes # (1.0-4.8) k/uL D-Dimer (<0.60) mg/L FEU Sodium (137-145) mmol/L Carbon Dioxide (22-30) mmol/L Glucose (74-99) mg/dL C-Reactive Protein (<1.0) mg/dL Coronavirus (PCR) Detected A (Not Detectd) Assessment and Plan Plan: 1. Acute COVID-19 pneumonia patient started on IV Decadron and subcu Lovenox pulmonary consultation was requested 2. Underlying history of hypertension 3. Underlying history of breast cancer 4. Underlying history of coronary artery disease with history of previous myocardial infarction 5. Elevated d-dimer with negative CT angiogram for pulmonary embolism 6. Mild hyponatremia will monitor closely patient was started on IV normal saline At this time patient was seen and examined in the emergency room he was started on subcu Lovenox and IV dexamethasone, vitamin C and vitamin D and zinc supplements he was also started on inhaled bronchodilators patient will be admitted to medical floor pulmonary consultation was requested.
[2020-08-28] MEDS: CHOLECALCIFEROL 25 MCG (1000 IU) TABLET PO SCH (19:15)
[2020-08-28] MEDS: DEXAMETHASONE SOD PHOSPHATE 10 MG/ML 1 ML VIAL IV SCH (19:15)
[2020-08-28] MEDS: ZINC SULFATE 220 MG CAP PO SCH (19:15)
[2020-08-28] MEDS: ENOXAPARIN 40 MG/0.4 ML SYRINGE SQ SCH (19:16)
[2020-08-28] MEDS: ASCORBIC ACID 500 MG TAB PO SCH (20:15)
[2020-08-29] MEDS: ASCORBIC ACID 500 MG TAB PO SCH ×2 (08:22→20:51)
[2020-08-29] MEDS: ENOXAPARIN 40 MG/0.4 ML SYRINGE SQ SCH (08:24)
[2020-08-29] MEDS: DEXAMETHASONE SOD PHOSPHATE 10 MG/ML 1 ML VIAL IV SCH (08:24)
[2020-08-29] MEDS: ZINC SULFATE 220 MG CAP PO SCH (08:24)
[2020-08-29] MEDS: CHOLECALCIFEROL 25 MCG (1000 IU) TABLET PO SCH (08:24)
[2020-08-29 09:18] LABS: Basophils # (A) 0.02 X 10*3/uL (0.00-0.10); Basophils % (A) 0.2 %; Eosinophils # (A) 0 X 10*3/uL (0.04-0.35); Eosinophils % (A) 0 %; HCT 41.4 % (37.2-46.3); HGB 14.5 g/dL (12.0-15.0); Lymphocytes # (A) 0.88 X 10*3/uL (0.90-5.00); Lymphocytes % (A) 7.6 %; MCH 31.6 pg (27.0-32.0); MCV 90.2 fL (80.0-97.0); Mean Platelet Volume 10.3 fL (9.5-12.2); Monocytes # (A) 0.47 X 10*3/uL (0.20-1.00); Neutrophils # (A) 10.24 X 10*3/uL (1.80-7.70); Neutrophils % (A) 87.9 %; Platelet Count 174 X 10*3/uL (140-440); RBC 4.59 X 10*6/uL (4.10-5.20); RDW 12.2 % (11.5-14.5); WBC 11.65 X 10*3/uL (4.50-10.00)
[2020-08-29 10:40] LABS: African American GFR (CKD) 113.7 (60.0-200.0); Albumin 3.8 g/dL (3.80-4.90); Albumin/Globulin Ratio 1.81 (1.60-3.17); Anion Gap 11.8 mmol/L (4.00-12.00); Calcium 8.6 mg/dL (8.7-10.3); Carbon Dioxide 21.2 mmol/L (21.6-31.8); Globulin 2.1 g/dL (1.6-3.3); Non-African American GFR(CKD) 98.1 (60.0-200.0); Potassium 4.4 mmol/L (3.5-5.5); Total Bilirubin 0.4 mg/dL (0.2-1.2); Total Protein 5.9 g/dL (6.2-8.2)
--- NOTE | 2020-08-29 16:12 | P.PN ---
Subjective Progress Note Date: 08/29/20 Principal diagnosis: COVID-19 pneumonia 70-year-old female, with a history of breast cancer, hypertension, myocardial infarction, who presents to the emergency department with shortness of breath, and cold symptoms since August 20. Apparently the patient has an oximeter at home, and her saturations dropped to 70%. She complained of significant exertional dyspnea. Her apparently tested positive for coronavirus, and is admitted to the hospital as well. The patient was seen in the emergency department. She was only on 2 L nasal cannula. There is no evidence of acute respiratory distress. No evidence of any conversational dyspnea or use of accessory muscles. White count was 5.4, hemoglobin 13.9, hematocrit 41.9, platelet 119,000. D-dimer was 1.38. Sodium 1:30, potassium 4.3, chlorides 101, CO2 21, anion gap 8, BUN 12, creatinine 0.52. Lactic acid 1.1. C-reactive protein was 7.3. Chest x-ray showed diffuse bilateral infiltrates, and computed tomography scan showed extensive bilateral pulmonary infiltrates, consistent with atypical pneumonia. The patient apparently has a history of breast cancer, hypertension, myocardial infarction, and osteoarthritis. She has had a heart catheterization with stent, to the right coronary artery, in June 2017. On 08/29/2020 patient seen in follow-up on medical surgical floor, she is awake, appears to be located distress, currently on 4 L of oxygen with pulse ox of 94%, breathing comfortably, no cough, no chest discomfort, afebrile. No acute events overnight, today's labs have been reviewed. Patient was outside the window for Remdesivir, continues on Decadron, Lovenox 40 mg daily, and multivitamins, doing well Objective - Vital Signs Vital signs: Vital Signs Temp 97.9 F 08/29/20 13:55 Pulse 66 08/29/20 13:55 Resp 18 08/29/20 13:55 BP 133/65 08/29/20 13:55 Pulse Ox 94 L 08/29/20 13:55 Intake & Output 08/28/20 08/29/20 08/29/20 18:59 06:59 18:59 Weight 90.718 kg Other: Voiding Method Toilet # Voids 3 - Exam GENERAL EXAM: Alert, very pleasant, 70-year-old white female, on 4 L of oxygen with pulse ox of 94% comfortable in no apparent distress. HEAD: Normocephalic/atraumatic. EYES: Normal reaction of pupils, equal size. Conjunctiva pink, sclera white. NOSE: Clear with pink turbinates. THROAT: No erythema or exudates. NECK: No masses, no JVD, no thyroid enlargement, no adenopathy. CHEST: No chest wall deformity. Symmetrical expansion. LUNGS: Equal air entry with mild crackles CVS: Regular rate and rhythm, normal S1 and S2, no gallops, no murmurs, no rubs ABDOMEN: Soft, nontender. No hepatosplenomegaly, normal bowel sounds, no guarding or rigidity. EXTREMITIES: No clubbing, no edema, no cyanosis, 2+ pulses and upper and lower extremities. MUSCULOSKELETAL: Muscle strength and tone normal. SPINE: No scoliosis or deformity SKIN: No rashes CENTRAL NERVOUS SYSTEM: Alert and oriented -3. No focal deficits, tone is normal in all 4 extremities. PSYCHIATRIC: Alert and oriented -3. Appropriate affect. Intact judgment and insight. - Labs CBC & Chem 7: 08/29/20 06:13 08/29/20 06:13 Labs: Abnormal Lab Results - Last 24 Hours (Table) 08/29/20 08/29/20 Range/Units 06:13 06:13 WBC 11.65 H (4.50-10.00) X 10*3/uL Neutrophils # 10.24 H (1.80-7.70) X 10*3/uL Lymphocytes # 0.88 L (0.90-5.00) X 10*3/uL Eosinophils # 0 L (0.04-0.35) X 10*3/uL Carbon Dioxide 21.2 L (21.6-31.8) mmol/L Creatinine 0.5 L (0.6-1.5) mg/dL BUN/Creatinine Ratio 30.00 H (12.00-20.00) Ratio Glucose 132 H (70-110) mg/dL Calcium 8.6 L (8.7-10.3) mg/dL AST 42 H (13-35) U/L Total Protein 5.9 L (6.2-8.2) g/dL Assessment and Plan Plan: Assessment: #1. Acute hypoxic respiratory failure second to COVID-19 pneumonia, and patient was beyond the window for Remdesivir #2. Elevated d-dimer without CT evidence of pulmonary embolism #3. History of essential hypertension #4. History of myocardial infarction #5. History of coronary artery disease with previous history of stenting of the RCA in June 2017 #6. History of breast cancer #7. History of pulmonary nodule, and prior history of smoking Plan: Patient is doing well, clinically stable, no worsening dyspnea, No acute events overnight Continue Decadron Continue prophylactic Lovenox Polyvitamin's If no worsening dyspnea and remains stable may consider discharge home in the next 24 hours, obtain home oxygen assessment: The patient may still go home on supplement oxygen as long as her requirements are not greater than 5 L I performed a history & physical examination of the patient and discussed their management with my nurse practitioner, Andreina Ansari. I reviewed the nurse practitioner's note and agree with the documented findings and plan of care. Lung sounds are positive for diffuse crackles The findings and the impression was discussed with the patient. I attest to the documentation by the nurse practitioner. Time with Patient: Less than 30
--- NOTE | 2020-08-29 18:10 | P.PN ---
Subjective Progress Note Date: 08/29/20 Kat Kim, is a 70 year old female patient of Dr Dobson, who presented to [facility] emergency room with a chief complaint of upper respiratory infection and cough, patient stated that her symptoms started 1 week ago, and that her tested positive for COVID-19 and is now admitted to the hospital, patient was also having shortness of breath, fever, diarrhea, and low oxygen saturation. She was evaluated in the emergency room vital examination on presentation revealed a temperature of 102.9 pulse 80 respiration 24 blood pressure 129/62 pulse ox 88% on room air laboratory data revealed a white blood count of 5.4 hemoglobin 13.9 platelet count 119 d-dimer was elevated at 1.38 sodium 1:30 potassium 4.3 chloride 101 CO2 21 BUN 12 creatinine 0.5 to C-reactive protein was elevated at 7.3 chloride 105 his PCR was positive, chest x-ray done in the emergency room revealed pulmonary vascular congestion and multifocal hazyness in bilateral lungs. EKG revealed sinus rhythm with premature atrial complexes and T-wave inversion in inferior leads, CT angiogram of the chest was done in the emergency room and revealed extensive bilateral pulmonary infiltrates consistent with multifocal pneumonia, there was no evidence of pulmonary embolism. Patient was admitted to telemetry floor, she was started on IV dexamethasone subcu Lovenox and oxygen supplements , pulmonary consultation was requested. On 08/29/2020 patient was seen and examined on the medical floor she is alert and oriented 3 in no apparent distress she is complaining of occasional cough and complaining of shortness of breath with any activity she is maintained on oxygen 4 L via nasal cannula vital exam reveals a temperature of 98.1 pulse 67 respiration 18 blood pressure 147/72 pulse ox 90% white blood count 11.6 hemoglobin 14.5 platelet count 174 d-dimer 1.38 BUN 15 creatinine 0.5 Objective - Vital Signs Vital signs: Vital Signs Temp 99.1 F 08/29/20 17:28 Pulse 55 L 08/29/20 17:28 Resp 18 08/29/20 17:28 BP 156/92 08/29/20 17:28 Pulse Ox 91 L 08/29/20 17:28 Intake & Output 08/28/20 08/29/20 08/29/20 18:59 06:59 18:59 Weight 90.718 kg Other: Voiding Method Toilet # Voids 3 4 - Exam In general patient is alert and oriented 3 in no apparent distress HEENT head normocephalic and atraumatic Neck is supple no JVD no goiter no lymphadenopathy Chest exam reveals a few scattered crackles no wheezing Cardiac exam reveals regular heart sounds no gallops no murmurs Abdomen is soft nontender no organomegaly with normal bowel sounds Extremity exam reveals no edema no cyanosis or clubbing Neurological examination reveals no gross focal deficit - Labs CBC & Chem 7: 08/29/20 06:13 08/29/20 06:13 Labs: Abnormal Lab Results - Last 24 Hours (Table) 08/29/20 08/29/20 Range/Units 06:13 06:13 WBC 11.65 H (4.50-10.00) X 10*3/uL Neutrophils # 10.24 H (1.80-7.70) X 10*3/uL Lymphocytes # 0.88 L (0.90-5.00) X 10*3/uL Eosinophils # 0 L (0.04-0.35) X 10*3/uL Carbon Dioxide 21.2 L (21.6-31.8) mmol/L Creatinine 0.5 L (0.6-1.5) mg/dL BUN/Creatinine Ratio 30.00 H (12.00-20.00) Ratio Glucose 132 H (70-110) mg/dL Calcium 8.6 L (8.7-10.3) mg/dL AST 42 H (13-35) U/L Total Protein 5.9 L (6.2-8.2) g/dL Assessment and Plan Plan: 1. Acute COVID-19 pneumonia patient started on IV Decadron and subcu Lovenox pulmonary consultation was requested 2. Acute hypoxic respiratory failure 3. Underlying history of breast cancer 4. Underlying history of coronary artery disease with history of previous myocardial infarction 5. Elevated d-dimer with negative CT angiogram for pulmonary embolism 6. Mild hyponatremia will monitor closely patient was started on IV normal sa line 7. Underlying history of hypertension At this time patient was seen and examined in the emergency room he was started on subcu Lovenox and IV dexamethasone, vitamin C and vitamin D and zinc bazzi pplements he was also started on inhaled bronchodilators patient will be admitted to medical floor pulmonary consultation was requested.
[2020-08-29] MEDS: SODIUM CHLORIDE 0.9% 1,000 ML IV SCH (21:30)
[2020-08-30] MEDS: CHOLECALCIFEROL 25 MCG (1000 IU) TABLET PO SCH (08:32)
[2020-08-30] MEDS: ZINC SULFATE 220 MG CAP PO SCH (08:32)
[2020-08-30] MEDS: DEXAMETHASONE SOD PHOSPHATE 10 MG/ML 1 ML VIAL IV SCH ×3 (08:33→20:35)
[2020-08-30] MEDS: ENOXAPARIN 40 MG/0.4 ML SYRINGE SQ SCH (08:33)
[2020-08-30] MEDS: ASCORBIC ACID 500 MG TAB PO SCH ×2 (08:42→20:36)
[2020-08-30] MEDS: guaiFENesin 600 MG TABLET.ER PO SCH ×2 (14:22→20:36)
[2020-08-30] MEDS ORDERED: ALPRAZolam 0.25 MG TAB PO PRN (15:06)
--- NOTE | 2020-08-30 15:06 | P.PN ---
Subjective Progress Note Date: 08/30/20 Kat Kim, is a 70 year old female patient of Dr Dobson, who presented to [facility] emergency room with a chief complaint of upper respiratory infection and cough, patient stated that her symptoms started 1 week ago, and that her tested positive for COVID-19 and is now admitted to the hospital, patient was also having shortness of breath, fever, diarrhea, and low oxygen saturation. She was evaluated in the emergency room vital examination on presentation revealed a temperature of 102.9 pulse 80 respiration 24 blood pressure 129/62 pulse ox 88% on room air laboratory data revealed a white blood count of 5.4 hemoglobin 13.9 platelet count 119 d-dimer was elevated at 1.38 sodium 1:30 potassium 4.3 chloride 101 CO2 21 BUN 12 creatinine 0.5 to C-reactive protein was elevated at 7.3 chloride 105 his PCR was positive, chest x-ray done in the emergency room revealed pulmonary vascular congestion and multifocal hazyness in bilateral lungs. EKG revealed sinus rhythm with premature atrial complexes and T-wave inversion in inferior leads, CT angiogram of the chest was done in the emergency room and revealed extensive bilateral pulmonary infiltrates consistent with multifocal pneumonia, there was no evidence of pulmonary embolism. Patient was admitted to telemetry floor, she was started on IV dexamethasone subcu Lovenox and oxygen supplements , pulmonary consultation was requested. On 08/29/2020 patient was seen and examined on the medical floor she is alert and oriented 3 in no apparent distress she is complaining of occasional cough and complaining of shortness of breath with any activity she is maintained on oxygen 4 L via nasal cannula vital exam reveals a temperature of 98.1 pulse 67 respiration 18 blood pressure 147/72 pulse ox 90% white blood count 11.6 hemoglobin 14.5 platelet count 174 d-dimer 1.38 BUN 15 creatinine 0.5 On 08/30/2020 patient was seen and examined on the medical floor she is alert and oriented 3 in no distress she is complaining of occasional cough and shortness of breath otherwise she denies any complaints there is no fever or chills no headache or dizziness no chest pain no nausea or vomiting no abdominal pain no diarrhea no blood in the stools no burning with urination no frequency or urgency and no hematuria. Patient is complaining of worsening anxiety she is crying at this point, her just passed this morning in the hospital with Covid pneumonia Objective - Vital Signs Vital signs: Vital Signs Temp 98.5 F 08/30/20 10:33 Pulse 67 08/30/20 10:33 Resp 18 08/30/20 10:33 BP 155/77 08/30/20 10:33 Pulse Ox 90 L 08/30/20 10:33 Intake & Output 08/29/20 08/30/20 08/30/20 18:59 06:59 18:59 Other: Voiding Method Toilet # Voids 4 - Exam In general patient is alert and oriented 3 in no apparent distress HEENT head normocephalic and atraumatic Neck is supple no JVD no goiter no lymphadenopathy Chest exam reveals a few scattered crackles no wheezing Cardiac exam reveals regular heart sounds no gallops no murmurs Abdomen is soft nontender no organomegaly with normal bowel sounds Extremity exam reveals no edema no cyanosis or clubbing Neurological examination reveals no gross focal deficit - Labs CBC & Chem 7: 08/29/20 06:13 08/29/20 06:13 Assessment and Plan Plan: 1. Acute COVID-19 pneumonia patient started on IV Decadron and subcu Lovenox pulmonary consultation was requested 2. Acute hypoxic respiratory failure 3. Underlying history of breast cancer 4. Underlying history of coronary artery disease with history of previous myocardial infarction 5. Elevated d-dimer with negative CT angiogram for pulmonary embolism 6. Mild hyponatremia will monitor closely patient was started on IV normal saline 7. Underlying history of hypertension At this time patient was seen and examined in the emergency room he was started on subcu Lovenox and IV dexamethasone, vitamin C and vitamin D and zinc supplements he was also started on inhaled bronchodilators patient will be admitted to medical floor pulmonary consultation was requested.
[2020-08-30] MEDS ORDERED: PROMETHAZINE HCL 6.25 MG/5 ML CUP PO PRN (15:07)
--- NOTE | 2020-08-30 16:39 | P.PN ---
Subjective Progress Note Date: 08/30/20 Principal diagnosis: COVID-19 pneumonia 70-year-old female, with a history of breast cancer, hypertension, myocardial infarction, who presents to the emergency department with shortness of breath, and cold symptoms since August 20. Apparently the patient has an oximeter at home, and her saturations dropped to 70%. She complained of significant exertional dyspnea. Her apparently tested positive for coronavirus, and is admitted to the hospital as well. The patient was seen in the emergency department. She was only on 2 L nasal cannula. There is no evidence of acute respiratory distress. No evidence of any conversational dyspnea or use of accessory muscles. White count was 5.4, hemoglobin 13.9, hematocrit 41.9, platelet 119,000. D-dimer was 1.38. Sodium 1:30, potassium 4.3, chlorides 101, CO2 21, anion gap 8, BUN 12, creatinine 0.52. Lactic acid 1.1. C-reactive protein was 7.3. Chest x-ray showed diffuse bilateral infiltrates, and computed tomography scan showed extensive bilateral pulmonary infiltrates, consistent with atypical pneumonia. The patient apparently has a history of breast cancer, hypertension, myocardial infarction, and osteoarthritis. She has had a heart catheterization with stent, to the right coronary artery, in June 2017. On 08/29/2020 patient seen in follow-up on medical surgical floor, she is awake, appears to be located distress, currently on 4 L of oxygen with pulse ox of 94%, breathing comfortably, no cough, no chest discomfort, afebrile. No acute events overnight, today's labs have been reviewed. Patient was outside the window for Remdesivir, continues on Decadron, Lovenox 40 mg daily, and multivitamins, doing well On 08/30/2020 patient seen in follow-up on medical surgical floor, this morning she lost her to COVID-19, was hospitalized here. She is resting quietly in bed she remains on 4 L of oxygen and her pulse ox is ranging between 88-90%, she is afebrile, hemodynamically stable, appears to be in no acute respiratory distress, breathing comfortably, no fever or chills, no chest discomfort, no nausea vomiting or diarrhea, she was out at that window for Remdesivir, she continues on Decadron 6 mg twice a day, and prophylactic Lovenox. No new labs today. Objective - Vital Signs Vital signs: Vital Signs Temp 97.6 F 08/30/20 14:00 Pulse 58 L 08/30/20 14:00 Resp 16 08/30/20 14:00 BP 130/62 08/30/20 14:00 Pulse Ox 88 L 08/30/20 14:00 Intake & Output 08/29/20 08/30/20 08/30/20 18:59 06:59 18:59 Other: Voiding Method Toilet # Voids 4 - Exam GENERAL EXAM: Alert, very pleasant, 70-year-old white female, on 4 L of oxygen with pulse ox of 88% comfortable in no apparent distress. HEAD: Normocephalic/atraumatic. EYES: Normal reaction of pupils, equal size. Conjunctiva pink, sclera white. NOSE: Clear with pink turbinates. THROAT: No erythema or exudates. NECK: No masses, no JVD, no thyroid enlargement, no adenopathy. CHEST: No chest wall deformity. Symmetrical expansion. LUNGS: Equal air entry with mild crackles CVS: Regular rate and rhythm, normal S1 and S2, no gallops, no murmurs, no rubs ABDOMEN: Soft, nontender. No hepatosplenomegaly, normal bowel sounds, no guarding or rigidity. EXTREMITIES: No clubbing, no edema, no cyanosis, 2+ pulses and upper and lower extremities. MUSCULOSKELETAL: Muscle strength and tone normal. SPINE: No scoliosis or deformity SKIN: No rashes CENTRAL NERVOUS SYSTEM: Alert and oriented -3. No focal deficits, tone is normal in all 4 extremities. PSYCHIATRIC: Alert and oriented -3. Appropriate affect. Intact judgment and insight. - Labs CBC & Chem 7: 08/29/20 06:13 08/29/20 06:13 Assessment and Plan Plan: Assessment: #1. Acute hypoxic respiratory failure second to COVID-19 pneumonia, and patient was beyond the window for Remdesivir #2. Elevated d-dimer without CT evidence of pulmonary embolism #3. History of essential hypertension #4. History of myocardial infarction #5. History of coronary artery disease with previous history of stenting of the RCA in June 2017 #6. History of breast cancer #7. History of pulmonary nodule, and prior history of smoking Plan: Patient has remained stable medically, still requiring supplemental oxygen and it is likely that she will need home oxygen No worsening dyspnea We'll obtain follow-up chest x-ray tomorrow, and follow up labs She lost her this morning If she continues to be the same not requiring higher oxygen we may discharge home in the next 24 hours on home oxygen. She will need to complete outpatient course of oral Decadron, We'll see her in follow-up in 2 weeks in the office I performed a history & physical examination of the patient and discussed their management with my nurse practitioner, Andreina Ansari. I reviewed the nurse practitioner's note and agree with the documented findings and plan of care. Lung sounds are positive for diffuse crackles The findings and the impression was discussed with the patient. I attest to the documentation by the nurse practitioner. Time with Patient: Less than 30
[2020-08-30] MEDS: ANASTROZOLE 1 MG TAB PO SCH (20:35)
[2020-08-30] MEDS: SODIUM CHLORIDE 0.9% 1,000 ML IV SCH (20:36)
[2020-08-30] MEDS: METOPROLOL TARTRATE 12.5 MG TAB PO SCH (20:36)
--- NOTE | 2020-08-31 07:20 | XR ---
EXAMINATION TYPE: XR chest 1V portable DATE OF EXAM: 08/31/2020 COMPARISON: Chest x-ray 08/27/2020 HISTORY: Covid infection, abnormal chest x-ray, pneumonia TECHNIQUE: Single frontal view of the chest is obtained. FINDINGS: Bilateral airspace disease, interstitial prominence again noted. There is no evident pneum othorax or pleural effusion. Cardiac mediastinal silhouette is stable. Aorta is dense. IMPRESSION: Findings consistent with patient's history of Covid pneumonia, follow-up suggested
[2020-08-31] MEDS: guaiFENesin 600 MG TABLET.ER PO SCH ×2 (08:02→20:41)
[2020-08-31] MEDS: DEXAMETHASONE SOD PHOSPHATE 10 MG/ML 1 ML VIAL IV SCH ×2 (08:02→20:41)
[2020-08-31] MEDS: CHOLECALCIFEROL 25 MCG (1000 IU) TABLET PO SCH (08:02)
[2020-08-31] MEDS: ZINC SULFATE 220 MG CAP PO SCH (08:02)
[2020-08-31] MEDS: ENOXAPARIN 40 MG/0.4 ML SYRINGE SQ SCH (08:03)
[2020-08-31] MEDS: ASCORBIC ACID 500 MG TAB PO SCH ×2 (08:15→18:51)
--- NOTE | 2020-08-31 13:34 | P.PN ---
Subjective Progress Note Date: 08/31/20 Kat Kim, is a 70 year old female patient of Dr Dobson, who presented to [facility] emergency room with a chief complaint of upper respiratory infection and cough, patient stated that her symptoms started 1 week ago, and that her tested positive for COVID-19 and is now admitted to the hospital, patient was also having shortness of breath, fever, diarrhea, and low oxygen saturation. She was evaluated in the emergency room vital examination on presentation revealed a temperature of 102.9 pulse 80 respiration 24 blood pressure 129/62 pulse ox 88% on room air laboratory data revealed a white blood count of 5.4 hemoglobin 13.9 platelet count 119 d-dimer was elevated at 1.38 sodium 1:30 potassium 4.3 chloride 101 CO2 21 BUN 12 creatinine 0.5 to C-reactive protein was elevated at 7.3 chloride 105 his PCR was positive, chest x-ray done in the emergency room revealed pulmonary vascular congestion and multifocal hazyness in bilateral lungs. EKG revealed sinus rhythm with premature atrial complexes and T-wave inversion in inferior leads, CT angiogram of the chest was done in the emergency room and revealed extensive bilateral pulmonary infiltrates consistent with multifocal pneumonia, there was no evidence of pulmonary embolism. Patient was admitted to telemetry floor, she was started on IV dexamethasone subcu Lovenox and oxygen supplements , pulmonary consultation was requested. On 08/29/2020 patient was seen and examined on the medical floor she is alert and oriented 3 in no apparent distress she is complaining of occasional cough and complaining of shortness of breath with any activity she is maintained on oxygen 4 L via nasal cannula vital exam reveals a temperature of 98.1 pulse 67 respiration 18 blood pressure 147/72 pulse ox 90% white blood count 11.6 hemoglobin 14.5 platelet count 174 d-dimer 1.38 BUN 15 creatinine 0.5 On 08/30/2020 patient was seen and examined on the medical floor she is alert and oriented 3 in no distress she is complaining of occasional cough and shortness of breath otherwise she denies any complaints there is no fever or chills no headache or dizziness no chest pain no nausea or vomiting no abdominal pain no diarrhea no blood in the stools no burning with urination no frequency or urgency and no hematuria. Patient is complaining of worsening anxiety she is crying at this point, her just passed this morning in the hospital with Covid pneumonia. On 08/31/2020 patient was seen and examined on the medical floor she is alert and oriented 3 in no distress she is complaining of occasional cough, with occasional bloody sputum production and shortness of breath otherwise she denies any complaints there is no fever or chills no headache or dizziness no chest pain no nausea or vomiting no abdominal pain no diarrhea no blood in the stools no burning with urination no frequency or urgency and no hematuria. Patient is complaining of worsening anxiety she is crying at this point, her just passed this morning in the hospital with Covid pneumonia Objective - Vital Signs Vital signs: Vital Signs Temp 97.7 F 08/31/20 04:50 Pulse 53 L 08/31/20 08:00 Resp 18 08/31/20 08:00 BP 160/79 08/31/20 04:50 Pulse Ox 87 L 08/31/20 04:50 Intake & Output 08/30/20 08/31/20 08/31/20 18:59 06:59 18:59 Intake Total 400 Balance 400 Intake: Oral 400 Other: Voiding Method Toilet Toilet # Voids 8 2 - Exam In general patient is alert and oriented 3 in no apparent distress HEENT head normocephalic and atraumatic Neck is supple no JVD no goiter no lymphadenopathy Chest exam reveals a few scattered crackles no wheezing Cardiac exam reveals regular heart sounds no gallops no murmurs Abdomen is soft nontender no organomegaly with normal bowel sounds Extremity exam reveals no edema no cyanosis or clubbing Neurological examination reveals no gross focal deficit - Labs CBC & Chem 7: 08/29/20 06:13 08/29/20 06:13 Labs: Abnormal Lab Results - Last 24 Hours (Table) 08/31/20 08/31/20 Range/Units 07:13 07:13 D-Dimer 2.10 H (<0.60) mg/L FEU Lactate Dehydrogenase 1240 H (313-618) U/L C-Reactive Protein 3.0 H (<1.0) mg/dL Assessment and Plan Plan: 1. Acute COVID-19 pneumonia patient started on IV Decadron and subcu Lovenox pulmonary consultation was requested 2. Acute hypoxic respiratory failure 3. Underlying history of breast cancer 4. Underlying history of coronary artery disease with history of previous myocardial infarction 5. Elevated d-dimer with negative CT angiogram for pulmonary embolism 6. Mild hyponatremia will monitor closely patient was started on IV normal saline 7. Underlying history of hypertension At this time patient was seen and examined in the emergency room he was started on subcu Lovenox and IV dexamethasone, vitamin C and vitamin D and zinc supplements he was also started on inhaled bronchodilators patient will be admitted to medical floor pulmonary consultation was requested.
--- NOTE | 2020-08-31 15:18 | P.PN ---
Subjective Progress Note Date: 08/31/20 Principal diagnosis: COVID-19 pneumonia 70-year-old female, with a history of breast cancer, hypertension, myocardial infarction, who presents to the emergency department with shortness of breath, and cold symptoms since August 20. Apparently the patient has an oximeter at home, and her saturations dropped to 70%. She complained of significant exertional dyspnea. Her apparently tested positive for coronavirus, and is admitted to the hospital as well. The patient was seen in the emergency department. She was only on 2 L nasal cannula. There is no evidence of acute respiratory distress. No evidence of any conversational dyspnea or use of accessory muscles. White count was 5.4, hemoglobin 13.9, hematocrit 41.9, platelet 119,000. D-dimer was 1.38. Sodium 1:30, potassium 4.3, chlorides 101, CO2 21, anion gap 8, BUN 12, creatinine 0.52. Lactic acid 1.1. C-reactive protein was 7.3. Chest x-ray showed diffuse bilateral infiltrates, and computed tomography scan showed extensive bilateral pulmonary infiltrates, consistent with atypical pneumonia. The patient apparently has a history of breast cancer, hypertension, myocardial infarction, and osteoarthritis. She has had a heart catheterization with stent, to the right coronary artery, in June 2017. On 08/29/2020 patient seen in follow-up on medical surgical floor, she is awake, appears to be located distress, currently on 4 L of oxygen with pulse ox of 94%, breathing comfortably, no cough, no chest discomfort, afebrile. No acute events overnight, today's labs have been reviewed. Patient was outside the window for Remdesivir, continues on Decadron, Lovenox 40 mg daily, and multivitamins, doing well On 08/30/2020 patient seen in follow-up on medical surgical floor, this morning she lost her to COVID-19, was hospitalized here. She is resting quietly in bed she remains on 4 L of oxygen and her pulse ox is ranging between 88-90%, she is afebrile, hemodynamically stable, appears to be in no acute respiratory distress, breathing comfortably, no fever or chills, no chest discomfort, no nausea vomiting or diarrhea, she was out at that window for Remdesivir, she continues on Decadron 6 mg twice a day, and prophylactic Lovenox. No new labs today. On 1 patient is seen in follow-up on medical surgical floor, she is sitting up in a recliner, appears to be comfortable, breathing comfortably, she is currently on 5 L and her pulse ox is 90-91%, no worsening dyspnea, occasional cough, no cognitive chest discomfort, she is afebrile, repeat chest x-ray shows bilateral airspace disease with interstitial prominence. No headaches, no lightheadedness, no dizziness. No specific complaints. Today's labs show a d- dimer of 2.10, and LDH of 1240, and CRP is 3.0. Objective - Vital Signs Vital signs: Vital Signs Temp 97.6 F 08/31/20 14:00 Pulse 58 L 08/31/20 14:00 Resp 16 08/31/20 14:00 BP 153/74 08/31/20 14:00 Pulse Ox 91 L 08/31/20 14:00 Intake & Output 08/30/20 08/31/20 08/31/20 18:59 06:59 18:59 Intake Total 400 Balance 400 Intake: Oral 400 Other: Voiding Method Toilet Toilet # Voids 8 2 - Exam GENERAL EXAM: Alert, very pleasant, 70-year-old white female, on 5 L of oxygen with pulse ox of 90% comfortable in no apparent distress. HEAD: Normocephalic/atraumatic. EYES: Normal reaction of pupils, equal size. Conjunctiva pink, sclera white. NOSE: Clear with pink turbinates. THROAT: No erythema or exudates. NECK: No masses, no JVD, no thyroid enlargement, no adenopathy. CHEST: No chest wall deformity. Symmetrical expansion. LUNGS: Equal air entry with mild crackles CVS: Regular rate and rhythm, normal S1 and S2, no gallops, no murmurs, no rubs ABDOMEN: Soft, nontender. No hepatosplenomegaly, normal bowel sounds, no guarding or rigidity. EXTREMITIES: No clubbing, no edema, no cyanosis, 2+ pulses and upper and lower extremities. MUSCULOSKELETAL: Muscle strength and tone normal. SPINE: No scoliosis or deformity SKIN: No rashes CENTRAL NERVOUS SYSTEM: Alert and oriented -3. No focal deficits, tone is normal in all 4 extremities. PSYCHIATRIC: Alert and oriented -3. Appropriate affect. Intact judgment and insight. - Labs CBC & Chem 7: 08/29/20 06:13 08/29/20 06:13 Labs: Abnormal Lab Results - Last 24 Hours (Table) 08/31/20 08/31/20 Range/Units 07:13 07:13 D-Dimer 2.10 H (<0.60) mg/L FEU Lactate Dehydrogenase 1240 H (313-618) U/L C-Reactive Protein 3.0 H (<1.0) mg/dL Assessment and Plan Plan: Assessment: #1. Acute hypoxic respiratory failure second to COVID-19 pneumonia, and patient was beyond the window for Remdesivir #2. Elevated d-dimer without CT evidence of pulmonary embolism #3. History of essential hypertension #4. History of myocardial infarction #5. History of coronary artery disease with previous history of stenting of the RCA in June 2017 #6. History of breast cancer #7. History of pulmonary nodule, and prior history of smoking Plan: Currently on 5 L of oxygen No worsening dyspnea No fever or chills, vital signs have been stable She qualifies for home oxygen Continue current treatment She could be considered for discharge home today or tomorrow, She can complete outpatient course of Decadron for 7 more days Today's chest x-ray has been noted shows no significant change in the appearance of bilateral COVID Pneumonia She will need outpatient follow-up in the office in [address] Ambrose I performed a history & physical examination of the patient and discussed their management with my nurse practitioner, Andreina Ansari. I reviewed the nurse practitioner's note and agree with the documented findings and plan of care. Lung sounds are positive for diffuse crackles The findings and the impression was discussed with the patient. I attest to the documentation by the nurse practitioner. Time with Patient: Less than 30
[2020-08-31] MEDS: METOPROLOL TARTRATE 12.5 MG TAB PO SCH (20:42)
[2020-08-31] MEDS: ANASTROZOLE 1 MG TAB PO SCH (20:42)
[2020-08-31] MEDS: SODIUM CHLORIDE 0.9% 1,000 ML IV SCH (20:42)
[2020-09-01] MEDS: ASCORBIC ACID 500 MG TAB PO SCH (07:30)
[2020-09-01] MEDS: guaiFENesin 600 MG TABLET.ER PO SCH (07:34)
[2020-09-01] MEDS: ZINC SULFATE 220 MG CAP PO SCH (07:34)
[2020-09-01] MEDS: DEXAMETHASONE SOD PHOSPHATE 10 MG/ML 1 ML VIAL IV SCH (07:34)
[2020-09-01] MEDS: ENOXAPARIN 40 MG/0.4 ML SYRINGE SQ SCH (07:34)
[2020-09-01] MEDS: CHOLECALCIFEROL 25 MCG (1000 IU) TABLET PO SCH (07:34)
[2020-09-01 08:37] LABS: C Reactive Protein 1.8 mg/dL (<1.0)
[2020-09-01 12:49] VITALS: RESP 16
[2020-09-01 14:20] VITALS: BP 162/73; PULSE 50; TEMP 97.5
--- NOTE | 2020-09-01 14:29 | P.DS ---
Providers Date of admission: 08/27/20 22:29 Expected date of discharge: 09/01/20 Attending physician: Tejinder Taylor Consults: 08/27/20 22:30 Consult Physician Routine Consulting Provider: Marcio Tavares Consult Reason/Comments: covidd, hypoxia Do you want consulting provider notified?: Yes Primary care physician: Angela [facility] Course: Diagnosis on discharge: 1. Acute COVID-19 pneumonia patient started on IV Decadron and subcu Lovenox pulmonary consultation was requested 2. Acute hypoxic respiratory failure 3. Underlying history of breast cancer 4. Underlying history of coronary artery disease with history of previous myocardial infarction 5. Elevated d-dimer with negative CT angiogram for pulmonary embolism 6. Mild hyponatremia will monitor closely patient was started on IV normal saline 7. Underlying history of hypertension Hospital course: Kat Kim, is a 70 year old female patient of Dr Dobson, who presented to [facility] emergency room with a chief complaint of upper respiratory infection and cough, patient stated that her symptoms started 1 week ago, and that her tested positive for COVID-19 and is now admitted to the hospital, patient was also having shortness of breath, fever, diarrhea, and low oxygen saturation. She was evaluated in the emergency room vital examination on presentation revealed a temperature of 102.9 pulse 80 respiration 24 blood pressure 129/62 pulse ox 88% on room air laboratory data revealed a white blood count of 5.4 hemoglobin 13.9 platelet count 119 d-dimer was elevated at 1.38 sodium 1:30 potassium 4.3 chloride 101 CO2 21 BUN 12 creatinine 0.5 to C-reactive protein was elevated at 7.3 chloride 105 his PCR was positive, chest x-ray done in the emergency room revealed pulmonary vascular congestion and multifocal hazyness in bilateral lungs. EKG revealed sinus rhythm with premature atrial complexes and T-wave inversion in inferior leads, CT angiogram of the chest was done in the emergency room and revealed extensive bilateral pulmonary infiltrates consistent with multifocal pneumonia, there was no eviden ce of pulmonary embolism. Patient was admitted to telemetry floor, she was started on IV dexamethasone subcu Lovenox and oxygen supplements , pulmonary consultation was requested. On 08/29/2020 patient was seen and examined on the medical floor she is alert and oriented 3 in no apparent distress she is complaining of occasional cough and complaining of shortness of breath with any activity she is maintained on oxygen 4 L via nasal cannula vital exam reveals a temperature of 98.1 pulse 67 respiration 18 blood pressure 147/72 pulse ox 90% white blood count 11.6 hemoglobin 14.5 platelet count 174 d-dimer 1.38 BUN 15 creatinine 0.5 On 08/30/2020 patient was seen and examined on the medical floor she is alert and oriented 3 in no distress she is complaining of occasional cough and shortness of breath otherwise she denies any complaints there is no fever or chills no headache or dizziness no chest pain no nausea or vomiting no abdominal pain no diarrhea no blood in the stools no burning with urination no frequency or urgency and no hematuria. Patient is complaining of worsening anxiety she is crying at this point, her just passed this morning in the hospital with Covid pneumonia. On 08/31/2020 patient was seen and examined on the medical floor she is alert and oriented 3 in no distress she is complaining of occasional cough, with occasional bloody sputum production and shortness of breath otherwise she denies any complaints there is no fever or chills no headache or dizziness no chest pain no nausea or vomiting no abdominal pain no diarrhea no blood in the stools no burning with urination no frequency or urgency and no hematuria. Patient is complaining of worsening anxiety she is crying at this point, her just passed this morning in the hospital with Covid pneumonia On 09/01/2020 patient was seen and examined on the medical floor she is alert and oriented 3 in no distress she is feeling better she is reporting improvement in her cough and shortness of breath she is requesting to be discharged home pulmonary consultation reviewed lab and x-rays reviewed at this time patient can be discharged home she will need home oxygen, d-dimer is still elevated and increasing patient has been maintained on subcu Lovenox during this hospitalization she was given a prescription for Xarelto 10 mg by mouth daily for 15 days after discharge she was also given a prescription for Decadron 6 mg by mouth twice a day for 10 more days otherwise patient was told to continue taking vitamin C vitamin D and zinc, she was told to follow-up was Dr. Dobson within the next week, she was told to return to emergency room if her condition is worsening. Patient Condition at Discharge: Fair Plan - Discharge Summary Discharge Rx Participant: No New Discharge Prescriptions: New Zinc Sulfate [Orazinc] 220 mg PO DAILY cap Ascorbic Acid [Vitamin C] 500 mg PO BID tab Cholecalciferol [Vitamin D3 (25 Mcg = 1000 Iu)] 50 mcg PO DAILY tablet ALPRAZolam [Xanax] 0.25 mg PO QID PRN tab PRN Reason: Anxiety Rivaroxaban [Xarelto] 10 mg PO DAILY 15 Days #15 tab Dexamethasone [Decadron] 6 mg PO BID 10 Days #20 tablet Continue Anastrozole 1 mg PO HS Metoprolol Tartrate [Lopressor] 12.5 mg PO HS Discharge Medication List Anastrozole 1 mg PO HS 03/19/20 [History] Metoprolol Tartrate [Lopressor] 12.5 mg PO HS 08/27/20 [History] ALPRAZolam [Xanax] 0.25 mg PO QID PRN tab 09/01/20 [Rx] Ascorbic Acid [Vitamin C] 500 mg PO BID tab 09/01/20 [Rx] Cholecalciferol [Vitamin D3 (25 Mcg = 1000 Iu)] 50 mcg PO DAILY tablet 09/01/20 [Rx] Dexamethasone [Decadron] 6 mg PO BID 10 Days #20 tablet 09/01/20 [Rx] Rivaroxaban [Xarelto] 10 mg PO DAILY 15 Days #15 tab 09/01/20 [Rx] Zinc Sulfate [Orazinc] 220 mg PO DAILY cap 09/01/20 [Rx] Follow up Appointment(s)/Referral(s): Marcio Tavares MD [STAFF PHYSICIAN] - 2 Weeks Angela Dobson MD [Primary Care Provider] - 1-2 days Patient Instructions/Handouts: Coronavirus Disease 2019 (COVID-19)
--- NOTE | 2020-09-01 16:49 | P.PN ---
Subjective Progress Note Date: 09/01/20 Principal diagnosis: Acute hypoxic respiratory failure secondary to COVID-19 pneumonitis. 70-year-old female, with a history of breast cancer, hypertension, myocardial infarction, who presents to the emergency department with shortness of breath, and cold symptoms since August 20. Apparently the patient has an oximeter at home, and her saturations dropped to 70%. She complained of significant exertional dyspnea. Her apparently tested positive for coronavirus, and is admitted to the hospital as well. The patient was seen in the emergency department. She was only on 2 L nasal cannula. There is no evidence of acute respiratory distress. No evidence of any conversational dyspnea or use of accessory muscles. White count was 5.4, hemoglobin 13.9, hematocrit 41.9, platelet 119,000. D-dimer was 1.38. Sodium 1:30, potassium 4.3, chlorides 101, CO2 21, anion gap 8, BUN 12, creatinine 0.52. Lactic acid 1.1. C-reactive protein was 7.3. Chest x-ray showed diffuse bilateral infiltrates, and computed tomography scan showed extensive bilateral pulmonary infiltrates, consistent with atypical pneumonia. The patient apparently has a history of breast cancer, hypertension, myocardial infarction, and osteoarthritis. She has had a heart catheterization with stent, to the right coronary artery, in June 2017. On 08/29/2020 patient seen in follow-up on medical surgical floor, she is awake, appears to be located distress, currently on 4 L of oxygen with pulse ox of 94%, breathing comfortably, no cough, no chest discomfort, afebrile. No acute events overnight, today's labs have been reviewed. Patient was outside the window for Remdesivir, continues on Decadron, Lovenox 40 mg daily, and multivitamins, doing well On 08/30/2020 patient seen in follow-up on medical surgical floor, this morning she lost her to COVID-19, was hospitalized here. She is resting quietly in bed she remains on 4 L of oxygen and her pulse ox is ranging between 88-90%, she is afebrile, hemodynamically stable, appears to be in no acute respiratory distress, breathing comfortably, no fever or chills, no chest discomfort, no nausea vomiting or diarrhea, she was out at that window for Remdesivir, she continues on Decadron 6 mg twice a day, and prophylactic Lovenox. No new labs today. On 1 patient is seen in follow-up on medical surgical floor, she is sitting up in a recliner, appears to be comfortable, breathing comfortably, she is currently on 5 L and her pulse ox is 90-91%, no worsening dyspnea, occasional cough, no cognitive chest discomfort, she is afebrile, repeat chest x-ray shows bilateral airspace disease with interstitial prominence. No headaches, no lightheadedness, no dizziness. No specific complaints. Today's labs show a d-d valentina of 2.10, and LDH of 1240, and CRP is Reevaluated today on 09/01/2020, patient remains on the regular medical floor, she is on 5 L nasal cannula, and her O2 saturations ranging between 91-93%. P atient denies any cough no wheezing no shortness of breath, she is doing great, and she is in the process of being discharged home today. She will have home oxygen. Objective - Vital Signs Vital signs: Vital Signs Temp 97.5 F L 09/01/20 14:00 Pulse 50 L 09/01/20 14:00 Resp 16 09/01/20 14:00 BP 162/73 09/01/20 14:00 Pulse Ox 91 L 09/01/20 14:00 Intake & Output 08/31/20 09/01/20 09/01/20 18:59 06:59 18:59 Intake Total 1040 Balance 1040 Intake: Intake, IV Titration 240 Amount Sodium Chloride 0.9% 1, 240 000 ml @ 20 mls/hr IV . Q24H [facility] Rx#:[id number] Oral 800 Other: Voiding Method Toilet Toilet Toilet # Voids 5 3 # Bowel Movements 1 - Exam Physical Exam: Revealed 70-year-old female in no distress. On 5 L nasal cannula, comfortable, asymptomatic. Head: Atraumatic, normocephalic. HEENT:[Neck is supple.] [No neck masses.] [No thyromegaly.] [No JVD.] Chest: [Symmetrical chest expansion, crackles at the bases, no rhonchi and no wheezes. Cardiac Exam: [Normal S1 and S2, no S3 gallop, no murmur.] Abdomen: [Soft, nontender, no megaly, no rebound, no guarding, normal bowel sounds.] Extremities: [No clubbing, no edema, no cyanosis.] Neurological Exam: [No focal neurologic deficit.] Alert and oriented 3. Psychiatric: Normal mood, affect and normal mental status examination. Skin: No rashes. - Labs CBC & Chem 7: 08/29/20 06:13 08/29/20 06:13 Labs: Abnormal Lab Results - Last 24 Hours (Table) 09/01/20 09/01/20 Range/Units 07:00 07:00 D-Dimer 3.05 H (<0.60) mg/L FEU Lactate Dehydrogenase 1127 H (313-618) U/L C-Reactive Protein 1.8 H (<1.0) mg/dL Assessment and Plan Assessment: Impression: Acute hypoxic respiratory failure secondary to COVID-19 pneumonia patient was beyond the window for REM. Elevated d-dimer on admission but no CT evidence of pulmonary embolism. Benign essential hypertension. History of coronary artery disease and previous stenting of RCA in June 11. History of breast cancer. History of pulmonary nodule being followed on outpatient basis. Recommendation: Continue oxygen at 5 L and arrange for oxygen at home. Continue present treatment plan. Continue Decadron at home. Cleared for discharge planning today. And follow-up on outpatient basis.
== END 2020-09-01 14:41 | disposition home or self-care (01) | DRG 177 ==
LOC: EC 20:31 → 4SSUR 22:29
PROVIDERS: ADMIT Internal Medicine; ATTEND Internal Medicine
DX: U07.1 COVID-19 (principal); J96.01 Acute respiratory failure with hypoxia; J12.82 Pneumonia due to coronavirus disease 2019; A08.39 Other viral enteritis; E87.1 Hypo-osmolality and hyponatremia; C50.919 Malignant neoplasm of unspecified site of unspecified female breast; I25.2 Old myocardial infarction; I10 Essential (primary) hypertension; I49.1 Atrial premature depolarization; F41.9 Anxiety disorder, unspecified; I25.10 Atherosclerotic heart disease of native coronary artery without angina pectoris; M19.90 Unspecified osteoarthritis, unspecified site; R91.1 Solitary pulmonary nodule; Z79.811 Long term (current) use of aromatase inhibitors; Z79.899 Other long term (current) drug therapy; Z87.891 Personal history of nicotine dependence; Z95.5 Presence of coronary angioplasty implant and graft; Z98.51 Tubal ligation status; Z88.5 Allergy status to narcotic agent; Z88.8 Allergy status to other drugs, medicaments and biological substances; Z82.3 Family history of stroke; Z80.8 Family history of malignant neoplasm of other organs or systems
CPT/HCPCS: 36415; 71045; 71275; 80048; 80053; 83605; 83615; 83735; 84484; 85025; 85379; 86140; 87635; 93005; 96365; 99291

== ENCOUNTER → 2020-11-07 | Outpatient (CLI) | payer MEDICARE, OTHER ==
[2020-11-07 23:00] LABS: HCT 41.2 % (37.2-46.3); HGB 13.9 g/dL (12.0-15.0); MCH 31.8 pg (27.0-32.0); MCHC 33.7 g/dL (32.0-37.0); MCV 94.3 fL (80.0-97.0); Mean Platelet Volume 10.3 fL (9.5-12.2); Platelet Count 245 X 10*3/uL (140-440); RBC 4.37 X 10*6/uL (4.10-5.20); RDW 12.6 % (11.5-14.5); WBC 8.21 X 10*3/uL (4.50-10.00)
[2020-11-08 02:02] LABS: African American GFR (CKD) 101.7 (60.0-200.0); Albumin 4.4 g/dL (3.80-4.90); Anion Gap 10.7 mmol/L (4.00-12.00); BUN/Creat Ratio 21.43 Ratio (12.00-20.00); Calcium 9.4 mg/dL (8.7-10.3); Carbon Dioxide 24.3 mmol/L (21.6-31.8); Globulin 2.2 g/dL (1.6-3.3); Non-African American GFR(CKD) 87.8 (60.0-200.0); Potassium 3.8 mmol/L (3.5-5.5); Total Bilirubin 0.7 mg/dL (0.2-1.2); Total Protein 6.6 g/dL (6.2-8.2)
== END | disposition home or self-care (01) ==
LOC: LABWHC1 15:43
PROVIDERS: ATTEND Internal Medicine Cardiovascular Disease
DX: R60.9 Edema, unspecified (principal)
CPT/HCPCS: 36415; 80053; 85027

== ENCOUNTER → 2020-12-23 | Outpatient (CLI) | payer MEDICARE, OTHER ==
[2020-12-23 11:49] LABS: African American GFR (CKD) >90 (>60 ml/min/1.73 sqM); Blood Urea Nitrogen 11 mg/dL (7-17); Non-African American GFR(CKD) >90 (>60 ml/min/1.73 sqM)
--- NOTE | 2020-12-23 13:09 | CT ---
EXAMINATION TYPE: CT chest w con DATE OF EXAM: 12/23/2020 COMPARISON: Previous cyst CTA of the chest 08/27/2020 HISTORY: Breast CA CT DLP: 660 mGycm Automated exposure control for dose reduction was used. CONTRAST: CT scan of the chest is performed with IV Contrast, patient injected with 100 mL of Isovue 300. FINDINGS: LUNGS: There is a superior segment left lower lobe pulmonary mass which measures 3.1 x 2.8 cm. In ret rospect this mass was present and was obscured by diffuse bilateral pneumonia. Maximal dimension prev iously was 3.1 cm. No additional nodules seen. Scattered calcified granulomas noted. MEDIASTINUM: There are no greater than 1 cm hilar or mediastinal lymph nodes. No pericardial effusi on is seen. Thoracic aorta is of normal caliber. The heart is not enlarged. UPPER ABDOMEN: No significant abnormality appreciated. OTHER: No additional significant abnormality is seen. IMPRESSION: There is a superior segment left lower lobe pulmonary mass which measures 3.1 x 2.8 cm. In retrospect this mass was present and was obscured by diffuse bilateral pneumonia. Maximal dimension previously was 3.1 cm.
== END | disposition home or self-care (01) ==
LOC: RADCTMAIN 11:11
PROVIDERS: ATTEND Internal Medicine Hematology & Oncology
DX: C50.919 Malignant neoplasm of unspecified site of unspecified female breast (principal); R91.8 Other nonspecific abnormal finding of lung field; J18.9 Pneumonia, unspecified organism
CPT/HCPCS: 82565; 84520; 71260; 36415; Q9967

== ENCOUNTER → 2021-01-03 | Outpatient (CLI) | payer MEDICARE, OTHER ==
[2021-01-03 14:11] VITALS: BP 157/84; PULSE 66; RESP 18; TEMP 98.2
--- NOTE | 2021-01-03 15:11 | P.PN ---
Subjective Progress Note Date: 01/03/21 Principal diagnosis: right breast cancer Kat is a 70 year old white female status post core biopsy of the right and left breast. 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 Based on the skin changes it was believed to be a T4 N0 M0 E R positive. Positive HER-2 negative grade 2 tumor making it a stage IIIB. She has been on neoadjuvant hormone therapy and the tumor is shrinking. Core biopsy of the left breast was benign. She believes that the tumor has decreased in size in her right breast. [place] [address]. This revealed a 3.1 x 2.8 cm lesion in the superior segment of the left lower lobe. She has had a lesion in her lung as per the patient since 2018. It was recommended that she have a biopsy performed of this area but she refused. estrogen: none Family History: mother: ? cancer/bronchial father: lip cancer Hormonal History: menarche: 13 , breast fed: none, age at first : 21 menopause: 50 BCP: tubaligation done after tried one "batch" hormones: used to drink soy milk Surgical History: 1. tubiligation 2. cardiac stint 3. left laser eye surgery Medical History: 1. [place] 2. uterine spotting told pre-cancer but seemed to resolve Social History: smoke: none stopped 50 years ago alcohol: none drugs: none - Constitutional Constitutional: Denies chills, Denies fever - EENT Eyes: denies blurred vision, denies pain Ears: deny: decreased hearing, tinnitus Ears, nose, mouth and throat: Denies headache, Denies sore throat - Breasts Breasts: bilateral: as per HPI - Cardiovascular Comment: [place], no aspirin or blood thinners - Respiratory Respiratory: Denies cough - Gastrointestinal Gastrointestinal: Denies abdominal pain, Denies diarrhea, Denies nausea, Denies vomiting - Genitourinary (Female) Genitourinary: Denies dysuria, Denies hematuria - Menstruation Menstruation: Reports postmenopausal - Musculoskeletal Comment: arthritis Musculoskeletal: Denies myalgias - Integumentary Comment: redness of right breast in the past - Neurological Neurological: Denies numbness, Denies weakness - Psychiatric Psychiatric: Reports anxiety, Denies depression - Endocrine Endocrine: Denies fatigue, Denies weight change - Hematologic/Lymphatic Comment: none - Allergic/Immunologic Allergic/Immunologic: Reports as per HPI Objective - Vital Signs Vital signs: Vital Signs Temp 98.2 F 01/03/21 14:06 Pulse 66 01/03/21 14:06 Resp 18 01/03/21 14:06 BP 157/84 01/03/21 14:06 Pulse Ox 96 01/03/21 14:06 Intake & Output 01/02/21 01/03/21 01/03/21 18:59 06:59 18:59 Weight 88.451 kg - Exam BMI 34.5 - Constitutional General appearance: Present: cooperative - EENT Eyes: Present: EOMI ENT: Present: hearing grossly normal - Neck Neck: Present: normal ROM - Respiratory Respiratory: bilateral: CTA - Cardiovascular Rhythm: regular Heart sounds: normal: S1, S2 - Gastrointestinal General gastrointestinal: Present: soft - Integumentary Integumentary: Present: normal turgor - Musculoskeletal Musculoskeletal: Present: gait normal - Psychiatric Psychiatric: Present: A&O x's 3, appropriate affect, intact judgment & insight - Additional findings Additional findings: Breast Exam: BRA: right breast smaller than left breast inspection: skin changes right breast palpation: Breasts: Multiple positional exam distortion secondary to mass posterior to the nipple areolar complex approximately 7-8 cm in size, some erythematous skin changes which may represent tumor and the skin Right axilla: No adenopathy of concern Left breast: Multi-positional exam no dominant masses or nodules of concern Left axilla: No adenopathy of concern Assessment and Plan Assessment: Impression: 1. Right breast invasive ductal carcinoma being treated with neoadjuvant hormone therapy patient has good response related to the neoadjuvant treatment 2. Lung mass for which patient has declined biopsy Plan: 1. Presentation of case at tumor board 2. Continue neoadjuvant hormone therapy 3. Follow-up here after presentation at tumor board CC: Dr. Dobson
== END ==
LOC: WWCWWP 13:48
PROVIDERS: ATTEND Surgery
DX: C50.911 Malignant neoplasm of unspecified site of right female breast (principal); R91.8 Other nonspecific abnormal finding of lung field; I25.2 Old myocardial infarction; Z87.891 Personal history of nicotine dependence; Z88.5 Allergy status to narcotic agent

== ENCOUNTER → 2021-07-04 | Outpatient (CLI) | payer MEDICARE, OTHER ==
[2021-07-04 13:17] LABS: African American GFR (CKD) >90 (>60 ml/min/1.73 sqM); Blood Urea Nitrogen 14 mg/dL (7-17); Non-African American GFR(CKD) 90 (>60 ml/min/1.73 sqM)
--- NOTE | 2021-07-06 22:07 | CT ---
EXAMINATION TYPE: CT Chest Abd Pelvis w con DATE OF EXAM: 07/04/2021 COMPARISON: CT dated 12/23/2020 HISTORY: Breast CA, Obsv. For Mets CT DLP: 1679.40 mGycm Automated exposure control for dose reduction was used. CONTRAST: CT scan of the chest, abdomen and pelvis is performed with Oral Contrast and with IV Contrast, patien t injected with 100 mL of Isovue 300. FINDINGS: CHEST: Interval progression of the previously seen left lower superior segment mass measuring 3.5 x 4 cm com pared to 2.8 x 3.1 cm previously. Significant interval progression with newly seen multiple variable sized pulmonary nodules, most evident seen in the upper lobes and more on the left side. Largest is s een at the posterior aspect of the left upper lobe measuring 16 mm. This is consistent with progressi ve metastatic disease. Newly seen small left-sided pleural effusion with questionable pleural nodular ity inferiorly. No gross cardiomegaly. Scattered arterial atherosclerotic calcifications with coronary arterial ather osclerotic calcifications. The pulmonary trunk measures 3.1 cm which may suggest pulmonary hypertensi on. No pericardial effusion. Multiple variable sized calcified and noncalcified hilar and mediastinal lymph nodes, not significantly progressed compared to the previous CT scan. Skin thickening of the r ight breast with tiny right breast calcification, please correlate with breast ultrasound/mammography results. Right thyroid lobe hypodensity, please correlate with thyroid ultrasound results. Degenerat erick changes of the thoracic spine. No gross aggressive bone lesion. ABDOMEN AND PELVIS: No definite hepatic focal lesion identified. Unremarkable gallbladder, spleen, pancreas, adrenals and kidneys. Scattered arterial atherosclerotic calcifications. Grossly unremarkable urinary bladder. Left adnexal cyst measuring 2.7 cm compared to 2.5 cm in March 2020 PET/CT scan. This could repres ent a paraovarian cyst other than a urinary bladder diverticulum. Anterior uterine wall calcification , possibly representing a tiny fibroid. Right ovarian/adnexal cyst measuring 1.4 cm. Recommend correl ation with pelvic ultrasound results. Unremarkable nondistended stomach, duodenum and small bowel. Colonic diverticulosis. Normal appendix. No suspicious lymphadenopathy or sizable ascites. Degenerative changes of the lumbar spine and hip j oints with severe bilateral L4-5 and L5-S1 facet osteoarthropathy. Anterolisthesis of L4 over L5. No gross aggressive bone lesion. IMPRESSION: Evident interval progression of the known left lower lung lobe superior segment mass with interval de velopment of multiple variable sized bilateral pulmonary nodules consistent with metastatic nodules. The left lower lobe superior segment mass could represent a primary lung cancer or metastasis. Recomm end tissue diagnosis if not already performed. No evidence of metastatic disease seen in the abdomen or the pelvis. Other interval changes and incidental findings as described above.
== END | disposition home or self-care (01) ==
LOC: RADCTMAIN 11:20
PROVIDERS: ATTEND Internal Medicine Hematology & Oncology
DX: C78.01 Secondary malignant neoplasm of right lung (principal); C78.02 Secondary malignant neoplasm of left lung; C50.211 Malignant neoplasm of upper-inner quadrant of right female breast
CPT/HCPCS: 82565; 84520; 71260; 74177; 36415; Q9967 ×2

== ENCOUNTER → 2021-09-18 | Outpatient (CLI) | payer MEDICARE, OTHER ==
--- NOTE | 2021-09-18 18:31 | XR ---
EXAMINATION TYPE: XR chest 2V DATE OF EXAM: 09/18/2021 5:49 PM COMPARISON: Chest radiographs from 08/31/2020, CT chest 12/23/2020 TECHNIQUE: XR chest 2V Frontal view of the chest. CLINICAL INDICATION:Female, 71 years old with history of R05.1; FINDINGS: Lungs/Pleura: Left upper lobe opacities which could represent prior masses seen on CT now measuring 5 .7 cm, previously on CT measuring 3.1 cm. No evidence of pneumothorax. There is obscuration left hear t. The right lung is clear without evidence of focal consolidation, pneumothorax or pleural effusion. Pulmonary vascularity: Unremarkable. Heart/mediastinum: Cardiomediastinal silhouette is partially obscured due to overlying and adjacent o pacities. Musculoskeletal: No acute osseous pathology. IMPRESSION: Left upper lobe opacity could represent left upper lobe mass seen on prior CT 12/23/2020 and appears l arger than corresponding CT. Superimposed airspace infection not entirely excluded.
== END | disposition home or self-care (01) ==
LOC: RADXRMAIN 17:35
PROVIDERS: ATTEND Family Medicine
DX: R91.8 Other nonspecific abnormal finding of lung field (principal)
CPT/HCPCS: 71046

== ENCOUNTER 2021-10-29 15:01 | Inpatient (IN) | payer MEDICARE, OTHER ==
[2021-10-29 16:04] VITALS: TEMP 97.7
--- NOTE | 2021-10-29 16:50 | XR ---
EXAMINATION TYPE: XR chest 2V DATE OF EXAM: 10/29/2021 COMPARISON: 09/18/2021 HISTORY: Difficulty breathing TECHNIQUE: 2 view FINDINGS: There is complete opacification left hemithorax. Heart and mediastinum are shifted to the r ight side. Right lung shows some diffuse interstitial infiltrate. Bony thorax is intact. 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 Heart shifted to the right side. Complete opac ification left hemithorax. There is progression of the left side opacification compared to exam
--- NOTE | 2021-10-29 18:28 | ED ---
SOB HPI - General Chief Complaint: Shortness of Breath Stated Complaint: GIANNA,Fluid,sent by Dr Montanez Time Seen by Provider: 10/29/21 18:22 Source: patient, RN notes reviewed Mode of arrival: wheelchair Limitations: no limitations - History of Present Illness Initial Comments: This is a pleasant 71-year-old female with a history of metastatic breast cancer. Patient presents today stating that her left lung is filling up with fluid. Patient complaining of shortness of breath and low oxygen saturation. Patient had pleuracentesis done last week. Patient was sent in by her oncologist, Dr. Montanez. Patient complaining of progressive shortness of breath both at rest and with exertion. Patient also states she was treated for cellulitis when she was admitted to [facility] however she states antibiotics didn't seem to do anything for the rash on both legs. Patient also states that she was found to have atrial fibrillation which converted during that admission. Patient states that many of these health problems started occurring after she had COVID-spring. No headache, no fever or chills, no changes in vision or hearing, no sore throat or difficulty with speech, no neck pain, no chest pain, no abdominal pain, no nausea or vomiting, no changes in urination or bowel movements, no numbness or tingling, no extremity pain, no skin rashes or lesions. - Related Data Home Medications Medication Instructions Recorded Confirmed Anastrozole 1 mg PO DAILY 03/19/20 10/29/21 carvediloL [Coreg] 3.125 mg PO BID 10/29/21 10/29/21 Allergies Allergy/AdvReac Type Severity Reaction Status Date / Time codeine AdvReac Nausea & Verified 10/29/21 19:21 Vomiting EYE DROPS WITH PRESERVATIVE/ Allergy Unknown Uncoded 10/29/21 16:03 BENJAMIN Review of Systems ROS Statement: Those systems with pertinent positive or pertinent negative responses have been documented in the HPI. ROS Other: All systems not noted in ROS Statement are negative. Past Medical History Past Medical History: Cancer, Hypertension, Myocardial Infarction ([place]), Osteoarthritis (OA) Additional Past Medical History / Comment(s): 2-5-18 stemi, Breast CA, lung nodule/CA Last Myocardial Infarction Date:: 06/14/2017 History of Any Multi-Drug Resistant Organisms: None Reported Past Surgical History: Heart Catheterization With Stent, Tubal Ligation Additional Past Surgical History / Comment(s): 2-18 heart cath w/ stent rca . other past sx:D&C, laser lt eye sx. Past Anesthesia/Blood Transfusion Reactions: Motion Sickness, Postoperative Nausea & Vomiting (PONV) Date of Last Stent Placement:: 06/14/2017 Past Psychological History: No Psychological Hx Reported Smoking Status: Never smoker Past Alcohol Use History: None Reported Past Drug Use History: None Reported - Past Family History Mother Family Medical History: CVA/TIA Father Family Medical History: Cancer Additional Family Medical History / Comment(s): LIP General Exam - General Exam Comments Initial Comments: Patient does not appear to be ill or toxic. Vital signs reviewed. Patient appears to be adequately hydrated. No respiratory distress at rest. Vital signs reviewed Limitations: no limitations General appearance: alert, in no apparent distress Head exam: Present: atraumatic, normocephalic, normal inspection Eye exam: Present: normal appearance, PERRL, EOMI. Absent: scleral icterus, conjunctival injection, periorbital swelling ENT exam: Present: normal exam, mucous membranes moist Neck exam: Present: normal inspection. Absent: tenderness, meningismus, lymphadenopathy Respiratory exam: Present: normal lung sounds bilaterally. Absent: respiratory distress, wheezes, rales, rhonchi, stridor Cardiovascular Exam: Present: regular rate, normal rhythm, normal heart sounds. Absent: systolic murmur, diastolic murmur, rubs, gallop, clicks GI/Abdominal exam: Present: soft, normal bowel sounds. Absent: distended, tenderness, guarding, rebound, rigid Extremities exam: Present: normal inspection, full ROM, normal capillary refill. Absent: tenderness, pedal edema, joint swelling, calf tenderness Back exam: Present: normal inspection Neurological exam: Present: alert, oriented X3, CN II-XII intact Psychiatric exam: Present: normal affect, normal mood Skin exam: Present: warm, dry, intact, normal color. Absent: rash Course Vital Signs 10/29/21 10/29/21 15:59 20:19 Temperature 97.7 F Pulse Rate 84 93 Respiratory 20 16 Rate Blood Pressure 152/89 163/99 O2 Sat by Pulse 95 92 L Oximetry - Consultations Consultation #1: Case discussed with Dr. Taylor reported sups patient for admission. Consultation will be placed for pulmonary and oncology. Medical Decision Making - Medical Decision Making Patient sent in by her oncologist for left-sided pleural effusion likely related to metastatic breast cancer with metastases to the lung. Patient's pleuracentesis were done at [facility] last Wednesday. Patient states she did go to my chart and find out this is consistent with metastatic lung cancer. Patient called Dr. Montanez today and was sent here for evaluation. Patient admitted for tension hydrothorax. History of metastatic breast cancer. Consultation for pulmonary and oncology. Supervising physician is Dr. Benavides - Lab Data Result diagrams: 10/29/21 18:46 10/29/21 18:46 Lab Results 10/29/21 10/29/21 10/29/21 Range/Units 18:46 18:46 18:46 WBC 9.1 (3.8-10.6) k/uL RBC 4.59 (3.80-5.40) m/uL Hgb 14.4 (11.4-16.0) gm/dL Hct 43.3 (34.0-46.0) % MCV 94.5 (80.0-100.0) fL MCH 31.5 (25.0-35.0) pg MCHC 33.3 (31.0-37.0) g/dL RDW 12.7 (11.5-15.5) % Plt Count 272 (150-450) k/uL MPV 7.4 Neutrophils % 75 % Lymphocytes % 16 % Monocytes % 5 % Eosinophils % 2 % Basophils % 1 % Neutrophils # 6.9 (1.3-7.7) k/uL Lymphocytes # 1.4 (1.0-4.8) k/uL Monocytes # 0.5 (0-1.0) k/uL Eosinophils # 0.2 (0-0.7) k/uL Basophils # 0.1 (0-0.2) k/uL PT 10.3 (9.0-12.0) sec INR 0.9 (<1.2) APTT 24.7 (22.0-30.0) sec Sodium 137 (137-145) mmol/L Potassium 4.1 (3.5-5.1) mmol/L Chloride 104 (98-107) mmol/L Carbon Dioxide 26 (22-30) mmol/L Anion Gap 7 mmol/L BUN 10 (7-17) mg/dL Creatinine 0.55 (0.52-1.04) mg/dL Est GFR (CKD-EPI)AfAm >90 (>60 ml/min/1.73 sqM) Est GFR (CKD-EPI)NonAf >90 (>60 ml/min/1.73 sqM) Glucose 112 H (74-99) mg/dL Plasma Lactic Acid Gerard (0.7-2.0) mmol/L Calcium 9.5 (8.4-10.2) mg/dL Magnesium 2.2 (1.6-2.3) mg/dL Total Bilirubin 0.6 (0.2-1.3) mg/dL AST 30 (14-36) U/L ALT 21 (4-34) U/L Alkaline Phosphatase 167 H (38-126) U/L Troponin I (0.000-0.034) ng/mL NT-Pro-B Natriuret Pep pg/mL Total Protein 7.2 (6.3-8.2) g/dL Albumin 4.3 (3.5-5.0) g/dL 10/29/21 10/29/21 10/29/21 Range/Units 18:46 18:46 18:46 WBC (3.8-10.6) k/uL RBC (3.80-5.40) m/uL Hgb (11.4-16.0) gm/dL Hct (34.0-46.0) % MCV (80.0-100.0) fL MCH (25.0-35.0) pg MCHC (31.0-37.0) g/dL RDW (11.5-15.5) % Plt Count (150-450) k/uL MPV Neutrophils % % Lymphocytes % % Monocytes % % Eosinophils % % Basophils % % Neutrophils # (1.3-7.7) k/uL Lymphocytes # (1.0-4.8) k/uL Monocytes # (0-1.0) k/uL Eosinophils # (0-0.7) k/uL Basophils # (0-0.2) k/uL PT (9.0-12.0) sec INR (<1.2) APTT (22.0-30.0) sec Sodium (137-145) mmol/L Potassium (3.5-5.1) mmol/L Chloride (98-107) mmol/L Carbon Dioxide (22-30) mmol/L Anion Gap mmol/L BUN (7-17) mg/dL Creatinine (0.52-1.04) mg/dL Est GFR (CKD-EPI)AfAm (>60 ml/min/1.73 sqM) Est GFR (CKD-EPI)NonAf (>60 ml/min/1.73 sqM) Glucose (74-99) mg/dL Plasma Lactic Acid Gerard 1.1 (0.7-2.0) mmol/L Calcium (8.4-10.2) mg/dL Magnesium (1.6-2.3) mg/dL Total Bilirubin (0.2-1.3) mg/dL AST (14-36) U/L ALT (4-34) U/L Alkaline Phosphatase (38-126) U/L Troponin I <0.012 (0.000-0.034) ng/mL NT-Pro-B Natriuret Pep 142 pg/mL Total Protein (6.3-8.2) g/dL Albumin (3.5-5.0) g/dL - EKG Data -: EKG Interpreted by Me EKG Comments: EKG done at [id number] with ED attending physician reveals a rate of 88. Sinus rhythm, normal axis. Normal intervals. No acute ST or T-wave changes. Disposition Clinical Impression: Tension hydrothorax, Dyspnea, Hypoxemia Disposition: ADMITTED IP TO THIS HOSP Condition: Fair Is patient prescribed a controlled substance at d/c from ED?: No Time of Disposition: 20:25 Decision to Admit Reason: Admit from EC Decision Time: 20:25
[2021-10-29 19:04] LABS: Basophils # (A) 0.1 k/uL (0-0.2); Basophils % (A) 1 %; Eosinophils # (A) 0.2 k/uL (0-0.7); Eosinophils % (A) 2 %; HCT 43.3 % (34.0-46.0); HGB 14.4 gm/dL (11.4-16.0); Lymphocytes # (A) 1.4 k/uL (1.0-4.8); Lymphocytes % (A) 16 %; MCH 31.5 pg (25.0-35.0); MCHC 33.3 g/dL (31.0-37.0); MCV 94.5 fL (80.0-100.0); Mean Platelet Volume 7.4; Monocytes # (A) 0.5 k/uL (0-1.0); Monocytes % (A) 5 %; Neutrophils # (A) 6.9 k/uL (1.3-7.7); Neutrophils % (A) 75 %; Platelet Count 272 k/uL (150-450); RBC 4.59 m/uL (3.80-5.40); RDW 12.7 % (11.5-15.5); WBC 9.1 k/uL (3.8-10.6)
[2021-10-29 19:12] LABS: INR 0.9 (<1.2); Partial Thromboplastin Time 24.7 sec (22.0-30.0); Prothrombin Time 10.3 sec (9.0-12.0)
[2021-10-29 19:21] LABS: ALT 21 U/L (4-34); AST 30 U/L (14-36); African American GFR (CKD) >90 (>60 ml/min/1.73 sqM); Albumin 4.3 g/dL (3.5-5.0); Alkaline Phosphatase 167 U/L (38-126); Anion Gap 7 mmol/L; Blood Urea Nitrogen 10 mg/dL (7-17); Calcium 9.5 mg/dL (8.4-10.2); Carbon Dioxide 26 mmol/L (22-30); Chloride 104 mmol/L (98-107); Glucose 112 mg/dL (74-99); Magnesium 2.2 mg/dL (1.6-2.3); Non-African American GFR(CKD) >90 (>60 ml/min/1.73 sqM); Potassium 4.1 mmol/L (3.5-5.1); Sodium 137 mmol/L (137-145); Total Bilirubin 0.6 mg/dL (0.2-1.3); Total Protein 7.2 g/dL (6.3-8.2)
[2021-10-29 20:20] VITALS: RESP 16
[2021-10-29] MEDS ORDERED: NALOXONE 0.4 MG/ML 1 ML VIAL IV PRN (20:25)
[2021-10-29] MEDS ORDERED: ACETAMINOPHEN TAB 325 MG TAB PO PRN (20:25)
[2021-10-29] MEDS ORDERED: MORPHINE SULFATE 4 MG/ML SYRINGE IV PRN (20:25)
[2021-10-29] MEDS ORDERED: ONDANSETRON 4 MG/2 ML VIAL IVP PRN (20:25)
[2021-10-29] MEDS ORDERED: SODIUM CHLORIDE 0.9% 1,000 ML IV SCH (20:30)
[2021-10-29] MEDS: carvediloL 3.125 MG TAB PO SCH (23:01)
--- NOTE | 2021-10-30 08:54 | US ---
EXAMINATION TYPE: US chest DATE OF EXAM: 10/30/2021 COMPARISON: NONE CLINICAL HISTORY: Left pleural effusion. left pleural effusion TECHNIQUE: Targeted ultrasound of the posterior lower left hemithorax EXAM MEASUREMENTS: Left Pleural Effusion pocket size: 12.4 cm Left skin surface to fluid distance: 5.0 cm Left side marked for possible thoracentesis outside the dept. Pulmonologists are able to review the images in the patient?s EMR. IMPRESSIONS: 1. Left pleural effusion
[2021-10-30] MEDS ORDERED: ANASTROZOLE 1 MG TAB PO SCH (09:00)
--- NOTE | 2021-10-30 09:32 | P.CNPUL ---
History of Present Illness Consult date: 10/30/21 Requesting physician: Tejinder Taylor Reason for consult: dyspnea, pleural effusion, abnormal CXR/CT Chief complaint: Shortness of breath History of present illness: This is a very pleasant 71-year-old female patient who follows with Dr. Rosales as her primary care provider. She has a history of hypertension, coronary artery disease with previous stent placement, osteoarthritis. She was also diagnosed with breast cancer in 2019 and follows at [facility] [place]. She was there just 10 days ago for shortness of breath and was found to have a left- sided pleural effusion and she had undergone a thoracentesis with 1 L of fluid removed that was reported positive for adenocarcinoma. She has been maintained on Arimidex. She was seen Dr. Montanez yesterday and she was having recurrent shortness of breath and was referred here to the emergency room. Chest x-ray reveals a near complete opacification of the left lung. She is seen today in consult in the emergency department. She is awake and alert in no acute distress. She is maintaining good O2 saturations in the mid 90s on room air. She's been afebrile. Hemodynamically stable. White count 9.1. Hemoglobin 14.4. INR 0.9. Sodium 137. Potassium 4.1. BUN 10. Creatinine 0.55. ProBNP 142. Ultrasound of the left chest reveals a 12.4 cm pocket. Review of Systems REVIEW OF SYSTEMS: CONSTITUTIONAL: Denies any recent significant weight loss or weight gain. EYES: Denies change in vision. EARS, NOSE, MOUTH, THROAT: Denies headaches, denies sore throat. CARDIOVASCULAR: Denies chest pain, palpitations or syncopal episodes. RESPIRATORY: Positive for shortness of breath, no cough, congestion or hemoptysis. GASTROINTESTINAL: Denies change in appetite, denies abdominal pain GENITOURINARY: Denies hematuria, denies infections. MUSKULOSKELETAL: Denies pain, denies swelling. INTEGUMENTARY: Denies rash, denies eczema. NEUROLOGICAL: Denies recent memory loss, no recent seizure activity. PSYCHIATRIC: Denies anxiety, denies depression. HEMATOLOGIC/LYMPHATIC: Denies anemia, denies enlarged lymph nodes. Past Medical History Past Medical History: Cancer, Hypertension, Myocardial Infarction ([place]), Osteoarthritis (OA) Additional Past Medical History / Comment(s): 2-5-18 stemi, Breast CA, lung nodule/CA Last Myocardial Infarction Date:: 06/14/2017 History of Any Multi-Drug Resistant Organisms: None Reported Past Surgical History: Heart Catheterization With Stent, Tubal Ligation Additional Past Surgical History / Comment(s): 06-14-17 heart cath w/ stent rca . other past sx:D&C, laser lt eye sx. Past Anesthesia/Blood Transfusion Reactions: Motion Sickness, Postoperative Nausea & Vomiting (PONV) Date of Last Stent Placement:: 06/14/2017 Past Psychological History: No Psychological Hx Reported Smoking Status: Never smoker Past Alcohol Use History: None Reported Past Drug Use History: None Reported - Past Family History Mother Family Medical History: CVA/TIA Father Family Medical History: Cancer Additional Family Medical History / Comment(s): LIP Medications and Allergies Home Medications Medication Instructions Recorded Confirmed Type Anastrozole 1 mg PO DAILY 03/19/20 10/29/21 History carvediloL [Coreg] 3.125 mg PO BID 10/29/21 10/29/21 History Allergies Allergy/AdvReac Type Severity Reaction Status Date / Time codeine AdvReac Nausea & Verified 10/29/21 19:21 Vomiting EYE DROPS WITH PRESERVATIVE/ Allergy Unknown Uncoded 10/29/21 16:03 SULPA Physical Exam Vitals: Vital Signs Temp Pulse Resp BP Pulse Ox 10/30/21 08:49 81 16 137/75 96 10/29/21 20:19 93 16 163/99 92 L 10/29/21 15:59 97.7 F 84 20 152/89 95 Intake and Output 10/29/21 10/30/21 10/30/21 22:59 06:59 14:59 Other: Weight 83.461 kg GENERAL EXAM: Alert, very pleasant 71-year-old female, on room air, comfortable in no apparent distress. HEAD: Normocephalic. EYES: Normal reaction of pupils, equal size. NOSE: Clear with pink turbinates. THROAT: No erythema or exudates. NECK: No masses, no JVD. CHEST: No chest wall deformity. LUNGS: Diminished breath sounds on the left. CVS: S1 and S2 normal with no audible murmur, regular rhythm. ABDOMEN: No hepatosplenomegaly, normal bowel sounds, no guarding or rigidity. SPINE: No scoliosis or deformity SKIN: No rashes CENTRAL NERVOUS SYSTEM: No focal deficits, tone is normal in all 4 extremities. EXTREMITIES: There is no peripheral edema. No clubbing, no cyanosis. Peripheral pulses are intact. Results - Laboratory Findings CBC and BMP: 10/29/21 18:46 10/29/21 18:46 PT/INR, D-dimer PT 10.3 sec (9.0-12.0) 10/29/21 18:46 INR 0.9 (<1.2) 10/29/21 18:46 Abnormal lab findings: Abnormal Labs 10/29/21 18:46 Glucose 112 H Alkaline Phosphatase 167 H - Diagnostic Findings Chest x-ray: image reviewed Assessment and Plan Assessment: 1 Recurrent left-sided pleural effusion secondary to adenocarcinoma. She was at [facility] 10/20/2021 and had undergone a left-sided thoracentesis with 1 L of fluid removed. Chest x-ray from 10/29/2021 reveals near complete opacification of the left lung. Ultrasound reveals a 12.4 cm fluid pocket. 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 Currently on Arimidex 3 History of coronary artery disease with previous stent placement to the RCA in June 2017 4 History of paroxysmal atrial fibrillation 5 Rash on the bilateral lower extremities 6 History of COVID-19 pneumonitis in August 2020 7 Osteoarthritis Plan: The patient was seen and evaluated Chest x-ray, medications and labs reviewed Ultrasound of the chest reviewed Recommended Pleurx catheter placement CT services consulted Currently stable and on room air We'll continue to follow and make further recommendations based on her clinical status I have personally seen and examined the patient, performed the documentation and the assessment and plan as written. Number of minutes spent on the visit: 20.
[2021-10-30 09:33] LABS: Basophils # (A) 0.1 k/uL (0-0.2); Basophils % (A) 1 %; Eosinophils # (A) 0.2 k/uL (0-0.7); Eosinophils % (A) 2 %; HCT 43.4 % (34.0-46.0); HGB 14.6 gm/dL (11.4-16.0); Lymphocytes # (A) 1.2 k/uL (1.0-4.8); Lymphocytes % (A) 14 %; MCHC 33.7 g/dL (31.0-37.0); MCV 94.8 fL (80.0-100.0); Mean Platelet Volume 7.4; Monocytes # (A) 0.5 k/uL (0-1.0); Monocytes % (A) 6 %; Neutrophils # (A) 6.7 k/uL (1.3-7.7); Neutrophils % (A) 76 %; Platelet Count 286 k/uL (150-450); RBC 4.57 m/uL (3.80-5.40); RDW 12.7 % (11.5-15.5); WBC 8.8 k/uL (3.8-10.6)
[2021-10-30 09:58] LABS: ALT 19 U/L (4-34); AST 23 U/L (14-36); African American GFR (CKD) >90 (>60 ml/min/1.73 sqM); Albumin 4.2 g/dL (3.5-5.0); Alkaline Phosphatase 148 U/L (38-126); Anion Gap 10 mmol/L; Blood Urea Nitrogen 13 mg/dL (7-17); Calcium 9.5 mg/dL (8.4-10.2); Carbon Dioxide 26 mmol/L (22-30); Chloride 103 mmol/L (98-107); Glucose 111 mg/dL (74-99); Magnesium 2.1 mg/dL (1.6-2.3); Non-African American GFR(CKD) 89 (>60 ml/min/1.73 sqM); Potassium 4.3 mmol/L (3.5-5.1); Sodium 139 mmol/L (137-145); Total Bilirubin 0.6 mg/dL (0.2-1.3); Total Protein 7.1 g/dL (6.3-8.2)
--- NOTE | 2021-10-30 11:16 | P.HPIM ---
History of Present Illness H&P Date: 10/30/21 Kat Kim, is a 71-year-old female, patient of Dr Dobson, who presented to [facility] emergency room with a chief complaint of worsening shortness of breath. Patient has a known history of breast cancer diagnosed 2 years ago and is followed at [facility], patient was admitted to [facility] last week she had left sided pleural effusion and underwent thoracentesis. She was seen by her oncologist yesterday, she was having significant shortness of breath and was sent to emergency room. She was evaluated in the emergency room vital examination on presentation revealed a temperature of 97.7 pulse 84 respiration 20 blood pressure 152/89 pulse ox 95% on room air Laboratory data revealed a white blood count of 9.1 hemoglobin 14.4 platelet count 272 sodium 137 potassium 4.1 chloride 104 CO2 26 BUN 10 creatinine 0.55 Testing in the emergency room revealed chest x-ray done in the emergency room revealed left sided tension hydrothorax with the heart shifted to the right side with complete opacification of the left hemithorax Patient will be admitted to ICU, pulmonary consultation and oncology consultation requested. Past medical history is significant for right breast carcinoma diagnosed in 2019, history of hypertension, history of paroxysmal atrial fibrillation, history of coronary artery disease with angioplasty and stent placement in 2018 On review of systems patient is alert and oriented 3 in no apparent distress she complains of shortness of breath with activity she denies any shortness of breath at rest, otherwise she denies any complaints there is no fever or chills no headache or dizziness no chest pain no cough no nausea or vomiting no abdominal pain no diarrhea no blood in the stools no burning with urination no frequency or urgency and no hematuria, there is no weakness or numbness in any of the extremities, there is no change in vision speech or gait. Past Medical History Past Medical History: Cancer, Hypertension, Myocardial Infarction ([place]), Osteoarthritis ([place]) Additional Past Medical History / Comment(s): 2-5-18 stemi, Breast CA, lung nodule/CA Last Myocardial Infarction Date:: 06/14/2017 History of Any Multi-Drug Resistant Organisms: None Reported Past Surgical History: Heart Catheterization With Stent, Tubal Ligation Additional Past Surgical History / Comment(s): 2-5-18 heart cath w/ stent rca . other past sx:D&C, laser lt eye sx. Past Anesthesia/Blood Transfusion Reactions: Motion Sickness, Postoperative Nausea & Vomiting (PONV) Date of Last Stent Placement:: 06/14/2017 Past Psychological History: No Psychological Hx Reported Smoking Status: Never smoker Past Alcohol Use History: None Reported Past Drug Use History: None Reported - Past Family History Mother Family Medical History: CVA/TIA Father Family Medical History: Cancer Additional Family Medical History / Comment(s): LIP Medications and Allergies Home Medications Medication Instructions Recorded Confirmed Type Anastrozole 1 mg PO DAILY 03/19/20 10/29/21 History carvediloL [Coreg] 3.125 mg PO BID 10/29/21 10/29/21 History Allergies Allergy/AdvReac Type Severity Reaction Status Date / Time codeine AdvReac Nausea & Verified 10/29/21 19:21 Vomiting EYE DROPS WITH PRESERVATIVE/ Allergy Unknown Uncoded 10/29/21 16:03 SULPA Physical Exam Vitals: Vital Signs Temp Pulse Resp BP Pulse Ox 10/30/21 08:49 81 16 137/75 96 10/29/21 20:19 93 16 163/99 92 L 10/29/21 15:59 97.7 F 84 20 152/89 95 Intake and Output 10/29/21 10/30/21 10/30/21 22:59 06:59 14:59 Other: Weight 83.461 kg In general patient is alert and oriented x 3 in no distress HEENT head normocephalic and atraumatic Neck is supple no JVD no goiter no lymphadenopathy no carotid bruit Chest examination, reveals a scattered crackles bilaterally with decreased lung sounds on the left Cardiac exam reveals regular heart sounds S1 and S2 no gallops no murmurs Abdomen is soft nontender no organomegaly with normal bowel sounds Extremity exam reveals no edema no cyanosis or clubbing, there is erythema in the left pretibial area extending from the ankle midway to the knee Neurological examination reveals no gross focal deficits Results CBC & Chem 7: 10/30/21 09:25 10/30/21 09:25 Labs: Abnormal Lab Results - Last 24 Hours (Table) 10/29/21 10/30/21 Range/Units 18:46 09:25 Glucose 112 H 111 H (74-99) mg/dL Alkaline Phosphatase 167 H 148 H (38-126) U/L Assessment and Plan Plan: Left sided pleural effusion, with evidence of left sided tension hydrothorax with the heart shifted to the right side and complete opacification of the left hemithorax Underlying history of right breast ductal carcinoma, maintained on Arimidex History of paroxysmal atrial fibrillation Underlying history of coronary artery disease with history of stent placement in 2018 History of cough in 19 pneumonia 1 year ago Underlying history of osteoarthritis Underlying history of hypertension. At this time patient is admitted to ICU She is still in holding in ER Pulmonary and oncology consultation requested She needs thoracentesis and possible Pleurx catheter placement Will follow closely
[2021-10-30] MEDS: carvediloL 3.125 MG TAB PO SCH (13:24)
[2021-10-30 13:27] VITALS: PULSE 75
[2021-10-30 15:41] VITALS: BP 146/79
--- NOTE | 2021-10-30 20:16 | P.CONS ---
History of Present Illness - Reason for Consult Consult date: 10/30/21 Breast Cancer History Requesting physician: Beny Clark - History of Present Illness his is a very nice lady who prsented with palpable right breast mass,she first noticed in 2016,she underwent alternative therapy and followed up with a doctor in [place]. In 2017,she had a CXR and CT scan of chest,at the time when she had a heart attack which revealed 2.1 cm mass in EDGAR of her lung but declined further evaluation. Then in 2019,she agreed for mammographies and U/S which revealed a large suspicious mass in right breast and smaller lesion in left breast,on 02/29/2020,2 sites biopsies of right breast were positive for invasive ductal carcinoma,grade 2,ER/WA+(100%,100%),HER2/MAIDA negative,the biopsy of left breast was negative. On 03/15/2020,PET scan revealed suspicious uptake in right breast and questionale right axilla node with slight uptake,there was also suspicious uptake in EDGAR lung mass,measured 3 cm. OncotypeDx revealed recurrence score of 10. She refused to have a lung biopsy. She started arimidex on 03/18/2020 Bone density on 05/14/2020 was normal. On 07/22/2020,repeat CT of chest revealed stable LLL lung mass. On 08/27/2020,CT scan of chest (done while in patient with COVID pneumonia) showed lung infiltrate and 3 cm LLL lung nodule. On 12/23/2020 CT scan of chest revealed stable LLL mass. On 07/04/2021,CT scan of chest revealed progression of LLL mass and multiple new bilateral lung nodules. She feels fine,active,tolerating arimidex well,taking OTC calium and vitamin D3. In July 2021 patient was last seen by Dr. Montanez at this time Per Dr. Montanez's Note " I discussed the recent CT scan results with the patient. I also reviewed the CT imaging of this current scan and compared it to the previous scan with the patient. The lung lesion is larger,she has new bilateral lung nodules as well. I highly recommended a CT guided biopsy to r/o lung cancer vs mets from her breast cancer but she declined. I also suggested adding CDK inhibitor to current AI,she declined as well. If she decides to proceed with a biopsy,she will call me back." I do see she was scheduled for a thoracentesis on November 18 left side, however no prior notation to know if she has ever had biopsy, definitive diagnosis of this lung nodule. Apparently she was just admitted at [facility] for pleural effusion and thoracentesis was performed. Cytology was positive for adenocarcinoma and felt to be a second primary of lung, not breast. Patient refused prior treatment and work-up of the growing lung mass in July and has asked to transfer to [place] for further care, at this time plan is to for transfer. CT chest hemithorax and right effusion Review of Systems All systems: negative Constitutional: Reports as per HPI Past Medical History Past Medical History: Cancer, Hypertension, Myocardial Infarction (NC), Osteoarthritis (OA) Additional Past Medical History / Comment(s): 06-14-17 stemi, Breast CA, lung nodule/CA Last Myocardial Infarction Date:: 06/14/2017 History of Any Multi-Drug Resistant Organisms: None Reported Past Surgical History: Heart Catheterization With Stent, Tubal Ligation Additional Past Surgical History / Comment(s): 06-14-17 heart cath w/ stent rca . other past sx:D&C, laser lt eye sx. Past Anesthesia/Blood Transfusion Reactions: Motion Sickness, Postoperative Nausea & Vomiting (PONV) Date of Last Stent Placement:: 06/14/2017 Past Psychological History: No Psychological Hx Reported Smoking Status: Never smoker Past Alcohol Use History: None Reported Past Drug Use History: None Reported - Past Family History Mother Family Medical History: CVA/TIA Father Family Medical History: Cancer Additional Family Medical History / Comment(s): LIP Medications and Allergies Home Medications Medication Instructions Recorded Confirmed Type Anastrozole 1 mg PO DAILY 03/19/20 10/29/21 History carvediloL [Coreg] 3.125 mg PO BID 10/29/21 10/29/21 History Allergies Allergy/AdvReac Type Severity Reaction Status Date / Time codeine AdvReac Nausea & Verified 10/29/21 19:21 Vomiting EYE DROPS WITH PRESERVATIVE/ Allergy Unknown Uncoded 10/29/21 16:03 SULPA Physical Exam Vitals: Vital Signs Temp Pulse Resp BP Pulse Ox 10/30/21 08:49 81 16 137/75 96 10/29/21 20:19 93 16 163/99 92 L 10/29/21 15:59 97.7 F 84 20 152/89 95 Intake and Output 10/29/21 10/30/21 10/30/21 22:59 06:59 14:59 Other: Weight 83.461 kg - Constitutional General appearance: cooperative - EENT Eyes: EOMI ENT: NA/AT - Neck Neck: normal ROM - Respiratory Respiratory: left: diminished - Cardiovascular Rhythm: regularly irregular - Gastrointestinal General gastrointestinal: soft - Integumentary Integumentary: pale - Musculoskeletal Musculoskeletal: generalized weakness - Psychiatric Psychiatric: A&O x's 3 Results CBC & Chem 7: 10/30/21 09:25 10/30/21 09:25 Labs: Abnormal Lab Results - Last 24 Hours (Table) 10/29/21 10/30/21 Range/Units 18:46 09:25 Glucose 112 H 111 H (74-99) mg/dL Alkaline Phosphatase 167 H 148 H (38-126) U/L CT scan - chest: report reviewed Assessment and Plan (1) History of breast cancer Current Visit: Yes Status: Acute Code(s): Z85.3 - PERSONAL HISTORY OF MALIGNANT NEOPLASM OF BREAST SNOMED Code(s): 206486568 (2) Lung nodule Narrative/Plan: Patient had refused biopsy of this back in July when found Current Visit: Yes Status: Acute Code(s): R91.1 - SOLITARY PULMONARY NODULE SNOMED Code(s): 278560391 (3) Recurrent left pleural effusion Narrative/Plan: Status post thoracentesis at outside hospital, ?? Pathology CTS consult for pleurex Current Visit: Yes Status: Acute Code(s): J90 - PLEURAL EFFUSION, NOT ELSEWHERE CLASSIFIED SNOMED Code(s): 26561709 (4) Tension hydrothorax Current Visit: Yes Status: Acute Code(s): J94.8 - OTHER SPECIFIED PLEURAL CONDITIONS SNOMED Code(s): 557779006 (5) Malignant pleural effusion Narrative/Plan: Cytology positive consistent with adenocarcinoma of lung primary performed at [facility] 2 weeks ago. Current Visit: Yes Status: Acute Code(s): J91.0 - MALIGNANT PLEURAL EFFUSION SNOMED Code(s): 684654386 Plan: PLan is for transfer to [facility]
== END 2021-10-30 22:24 | disposition short-term general hospital (02) | DRG 181 ==
LOC: EC 15:01 → 3SCARD 20:11
PROVIDERS: ADMIT Internal Medicine; ATTEND Internal Medicine
DX: C34.12 Malignant neoplasm of upper lobe, left bronchus or lung (principal); J94.8 Other specified pleural conditions; J91.0 Malignant pleural effusion; Z20.822 Contact with and (suspected) exposure to COVID-19; I10 Essential (primary) hypertension; I25.10 Atherosclerotic heart disease of native coronary artery without angina pectoris; I48.0 Paroxysmal atrial fibrillation; C50.911 Malignant neoplasm of unspecified site of right female breast; R21 Rash and other nonspecific skin eruption; M19.90 Unspecified osteoarthritis, unspecified site; I25.2 Old myocardial infarction; Z79.811 Long term (current) use of aromatase inhibitors; Z79.899 Other long term (current) drug therapy; Z95.5 Presence of coronary angioplasty implant and graft; Z87.01 Personal history of pneumonia (recurrent); Z86.16 Personal history of COVID-19; Z98.51 Tubal ligation status; Z88.5 Allergy status to narcotic agent; Z17.0 Estrogen receptor positive status [ER+]; Z82.3 Family history of stroke
CPT/HCPCS: 36415; 71046; 76604; 80053; 83605; 83735; 83880; 84484; 85025; 85610; 85730; 87635; 93005; 99285

== ENCOUNTER → 2022-04-14 | Outpatient (CLI) | payer MEDICARE, OTHER ==
[2022-04-14 12:42] LABS: African American GFR (CKD) >90 (>60 ml/min/1.73 sqM); Blood Urea Nitrogen 13 mg/dL (7-17); Non-African American GFR(CKD) 86 (>60 ml/min/1.73 sqM)
--- NOTE | 2022-04-15 20:38 | CT ---
EXAMINATION TYPE: CT ChestAbdPelvis w con DATE OF EXAM: 04/14/2022 COMPARISON: 07/04/2021, 12/23/2020 HISTORY: 71-year-old female C3 4.32, f/u breast and lung ca TECHNIQUE: Contiguous axial scanning of the chest, abdomen, and pelvis performed with IV Contrast, pa tient injected with 70cc mL of Isovue 300. Delayed images through the kidneys were obtained. Coronal/ sagittal reconstructions performed. CT DLP: 946.1 mGycm Automated exposure control for dose reduction was used. FINDINGS: CHEST: Heart normal size without pericardial effusion. LAD and RCA coronary calcifications are present as we ll as mitral annular calcifications. Aorta normal caliber with mild to moderate atherosclerotic atherosclerotic calcification and bovine c onfiguration to the aortic arch. Stable 1.4 cm nodule right lobe of the thyroid gland. Scattered calcified mediastinal and bilateral hilar nodes suggesting prior granulomatous disease. No enlarging thoracic lymphadenopathy. Mildly enlarged caliber to the main right and left coronary arteries measuring up to 2.7 cm suggestin g underlying pulmonary arterial hypertension. Enlarging small to moderate left pleural effusion. Associated pleural thickening and effusion extendi ng up into the apex, suspect some areas of loculation. The patient previously appears segment left lower lobe mass currently measuring 3.0 cm versus 4.2 cm, previously. Healed interstitial and patchy opacities as well as ground glass nodularity throughout both lungs, le ft greater than right. More focal areas of opacity that is at the right midlung measuring 1.5 cm. Overall nodularity from pr ior exam but the associated groundglass appearance patel. More confluent areas of groundglass in the perihilar regions. ABDOMEN: No focal liver lesion or biliary ductal dilatation. Portal venous system is patent. Gallbladder, right adrenal gland, and pancreas within normal limits. Small calcified granulomas in th e spleen. Mild nodularity left adrenal gland measuring 1.4 cm is unchanged. Kidneys show symmetric uptake and e xcretion bilaterally. Moderate atherosclerotic calcifications infrarenal abdominal aorta without aneurysm. Retroperitoneal lymphadenopathy. No dilated small bowel, or free air. Normal appendix. Mild stool burden. No pericolonic inflammatory change. PELVIS: Mild circumferential bladder thickening. Correlate to exclude cystitis. Uterus is anteverted. There i s some focal calcifications measuring up to 1 cm, likely small calcified fibroids. Both ovaries are v isualized. There is a 2.2 cm cystic area in the left adnexa, either a paraovarian cyst, previously 2. 7 cm versus a bladder wall diverticulum. No abnormal fluid collection in the pelvis or pelvic adenopa thy. BONES: Accentuated midthoracic kyphosis. Additionally in the lower thoracic spine. Moderate degenerative corey nge of the hips. Facet arthropathy lower lumbar spine with grade 1 lesions L4-L5. No osseous destruct erick process seen. However, there is a new sclerotic focus along the left plate of T11. Additional new sclerotic focus along the left lower sternal manubrium. IMPRESSION: 1. THE SUPERIOR SEGMENT LEFT LOWER LOBE MASS MEASURES SLIGHTLY SMALLER AT 3.0 CM (VERSUS 4.2 CM, PREV IOUSLY). 2. HOWEVER, THERE HAS BEEN INTERVAL DEVELOPMENT OF MILD DIFFUSE PLEURAL THICKENING IN THE LEFT HEMITH ORAX WITH ENLARGING, NOW SMALL TO MODERATE PLEURAL EFFUSION. EXTENSIVE BILATERAL GROUNDGLASS NODULARI TY IS PRESENT WELL, INCREASED COMPARED TO THE PREVIOUS NODULARITY. NEW AREAS OF PERIHILAR GROUN DGLASS OPACITY HAS DEVELOPED WELL. UNCLEAR IF THIS REPRESENTS DISEASE PROGRESSION VERSUS SUPERIMPO SED INFECTION. 3. THE PRESENCE OF 2 NEW SCLEROTIC LESIONS, ONE WITHIN THE STERNAL MANUBRIUM AND ONE WITHIN THE T11 V ERTEBRAL BODY IS HIGHLY SUSPICIOUS FOR NEW OSSEOUS METASTASES. THE OVERALL FINDINGS SUGGEST DISEASE P ROGRESSION. AGAIN, CORRELATE TO EXCLUDE SUPERIMPOSED INFECTION IN THE LUNGS.
== END | disposition home or self-care (01) ==
LOC: RADCTMAIN 11:59
PROVIDERS: ATTEND Internal Medicine Hematology & Oncology
DX: C34.32 Malignant neoplasm of lower lobe, left bronchus or lung (principal); J90 Pleural effusion, not elsewhere classified; R91.8 Other nonspecific abnormal finding of lung field; I99.9 Unspecified disorder of circulatory system
CPT/HCPCS: 82565; 84520; 71260; 74177; 36415; Q9967

== ENCOUNTER → 2022-05-18 | Outpatient (CLI) | payer MEDICARE, OTHER ==
--- NOTE | 2022-05-18 12:10 | BD ---
EXAMINATION TYPE: Axial Bone Density DATE OF EXAM: 05/18/2022 COMPARISON: Prior DEXA bone scan 2020 CLINICAL HISTORY: 71 years year old Female. ICD-10 CODE: Z78.0 POST MENOPAUSAL WITHOUT HRT Height: 5 FT 1 IN Weight: 159 FRAX RISK QUESTIONS: Alcohol (3 or more units per day): NO Family History (Parent hip fracture): YES Glucocorticoids (More than 3mos): NO (Ex: prednisone, prednisolone, methylprednisolone, dexamethasone, and hydrocortisone). History of Fracture in Adulthood: NO Secondary Osteoporosis: 1. Type 1 Diabetes: NO 2. Hyperthyroidism: NO 3. Menopause before 45: NO 4. Malnutrition: NO 5. Chronic liver disease: NO Rheumatoid Arthritis: NO Current Tobacco Use: NO RISK FACTORS HISTORY OF: Surgery to Spine/Hip(right/left)/Wrist (right/left): NO Family History of Osteoporosis: UNSURE Active: NO Diet low in dairy products/other sources of calcium: NO Postmenopausal woman: YES Take estrogen and/or progesterone medications: NO Lost more than 2 inches in height since high school: YES Frequent falls: NO Poor Health: FAIR Hyperparathyroidism: NO Adrenal Insufficiency: NO MEDICATIONS: Additional Medications: TRAGISSO,NAASTROZOLE, CARVEDIOL Additional History: LUNG CANCER AND BREAST EXAM MEASUREMENTS: Bone mineral densitometry was performed using the [employer] System. Bone mineral density as measured about the Lumbar spine is: ----- L1-L4(G/cm2): 1.203 T Score Values are as follows: ----- L1: 0.0 ----- L2: -0.1 ----- L3: 0.4 ----- L4: 0.2 ----- L1-L4: 0.2 Bone mineral density has: DECREASED -17.3 % since study of: 2020 Bone mineral density about the R hip (g/cm2): 0.841 Bone mineral density about the L hip (g/cm2): 0.849 T Score values are as follows: -----R Neck: -1.4 -----L Neck: -1.4 -----R Total: -1.1 -----L Total: -0.9 Bone mineral density has: DECREASED -20.7 % since study of: 2020 FRAX%s: The graph provided illustrates a 15.3 % chance for a major osteoporotic fx and a 4.1 % chance for the hips probability for fx in 10 years time. IMPRESSION: Osteopenia (T Score between -2.5 and -1) is now present. There is slightly increased risk of fracture and the patient may be considered for treatment. Re-Screen 2-5 years. NOTE: T-SCORE=SD OF THE YOUNG ADULT MEAN.
== END | disposition home or self-care (01) ==
LOC: RADBDWWP 09:59
PROVIDERS: ATTEND Internal Medicine Hematology & Oncology
DX: M85.89 Other specified disorders of bone density and structure, multiple sites (principal); Z78.0 Asymptomatic menopausal state
CPT/HCPCS: 77080

== ENCOUNTER → 2022-05-18 | Outpatient (CLI) | payer MEDICARE, OTHER ==
[2022-05-18 11:12] LABS: African American GFR (CKD) >90 (>60 ml/min/1.73 sqM); Blood Urea Nitrogen 11 mg/dL (7-17); Non-African American GFR(CKD) 89 (>60 ml/min/1.73 sqM)
--- NOTE | 2022-05-18 12:30 | CT ---
EXAMINATION TYPE: CT chest w con CT DLP: 630 mGycm, Automated exposure control for dose reduction was used. DATE OF EXAM: 05/18/2022 11:42 AM COMPARISON: Multiple CTs most recent 04/14/2022 CLINICAL INDICATION:Female, 71 years old with history of C34.32 lung ca; f/u lung ca TECHNIQUE: Multiple axial images were obtained through the chest. Sagittal and coronal reformats were created for review. Contrast used:70cc mL of Isovue 300 with IV Contrast Oral contrast used: none. FINDINGS: LUNGS/ PLEURA: * Persistent loculated left pleural effusion which is similar in size to prior on 04/14/2022. * Left lung mass measures smaller on today's exam now measuring 2.2 x 2.1 cm, previously 3.0 x 2.1 c m * There is somewhat diffuse nodular somewhat groundglass densities are seen throughout the lungs (gr eater than 20), predominantly involving the upper lobes which is seen dating back to 07/04/2021 and ap pears to be new from 12/23/2020. There is ground glass opacities with a similar distribution within th e right upper lung which appear less dense on today's exam and could be due to phase of inspiration. * No pneumothorax. No right-sided pleural effusion or focal consolidation. AIRWAY: Patent and unremarkable. HEART: Size within normal limits. Mild coronary artery atherosclerosis. MEDIASTINUM: No gross evidence of adenopathy. VASCULATURE: No aortic aneurysm. Mild atherosclerosis of the arterial vasculature. MUSCULOSKELETAL: Similar sclerotic focus within the manubrium measuring up to 8 mm., Similar scleroti c focus within the T11 vertebral body measuring up to 14 mm. Multilevel disc degeneration changes thr oughout the spine. SOFT TISSUES/LYMPH NODES: Unremarkable. LOWER NECK: No significant findings. UPPER ABDOMEN: No significant findings. No evidence lymphadenopathy identified. Scattered calcified g ranulomas within the spleen. IMPRESSION: 1. Decrease in size of left lower lung mass with stable sclerotic lesions of the manubrium and T11 v ertebral body. No definitive new sclerotic osseous lesions identified. Findings suggest positive resp onse to therapy. 2. Scattered pulmonary nodules some of which appear more groundglass and are scattered throughout th e lungs similar dating back to 07/04/2021. New from 12/23/2020. Correlate for infectious/inflammatory p rocess. 3. Groundglass opacities appear less dense on today's exam which could be posttreatment changes. 4. Similar left-sided left pleural effusion.
== END | disposition home or self-care (01) ==
LOC: RADCTMAIN 10:26
PROVIDERS: ATTEND Internal Medicine Hematology & Oncology
DX: C34.32 Malignant neoplasm of lower lobe, left bronchus or lung (principal); J90 Pleural effusion, not elsewhere classified; R91.8 Other nonspecific abnormal finding of lung field
CPT/HCPCS: 82565; 84520; 71260; 36415; Q9967

== ENCOUNTER → 2022-09-09 | Outpatient (CLI) | payer MEDICARE, OTHER ==
--- NOTE | 2022-09-09 13:37 | US ---
EXAMINATION TYPE: US venous doppler duplex LE LT DATE OF EXAM: 09/09/2022 1:24 PM COMPARISON: NONE CLINICAL INDICATION: Female, 72 years old with history of I82.402, R22.43 LOCALIZED S, M79.605 PAIN I N LEFT LEG, C80.1; Pain x 1 day. Patient started on Xarelto last night. No hx of DVT. SIDE PERFORMED: Left TECHNIQUE: The lower extremity deep venous system is examined utilizing real time linear array sonog tabby with graded compression, doppler sonography and color-flow sonography. VESSELS IMAGED: Common Femoral Vein Deep Femoral Vein Greater Saphenous Vein * Femoral Vein Popliteal Vein Small Saphenous Vein * Proximal Calf Veins (* superficial vessels) Left Leg: Echoes seen within PTVs throughout left calf. Appears positive for DVT. Internal echoes also seen within the smaller saphenous vein right up to the junction with the popliteal vein*. Inter nal echoes also seen within branch of greater saphenous vein at the medial knee level. Lack of color flow seen within these noncompressible vessels. IMPRESSION: 1. Exam positive for DVT involving the posterior tibial veins throughout the calf. 2. Corresponding SVT involving branch of the GSV medially at the level of the knee and also the small saphenous vein up to where it joins the patent popliteal vein. [employer] [employer] will call the physician's office with critical findings.
== END | disposition home or self-care (01) ==
LOC: RADUSWWP 09:50
PROVIDERS: ATTEND Family Medicine
DX: I82.402 Acute embolism and thrombosis of unspecified deep veins of left lower extremity (principal); C80.1 Malignant (primary) neoplasm, unspecified; I47.1 Supraventricular tachycardia; R22.43 Localized swelling, mass and lump, lower limb, bilateral

== ENCOUNTER 2022-09-30 22:26 | Emergency (ER) | payer MEDICARE, OTHER ==
[2022-09-30 22:35] VITALS: RESP 18; TEMP 97.9
[2022-09-30 23:18] LABS: Appearance,Urine Clear (Clear); Bilirubin,Urine Negative (Negative); Blood,Urine Negative (Negative); Color,Urine Colorless; Glucose,Urine (UA) Negative (Negative); Ketones,Urine Negative (Negative); Leukocyte Esterase,Urine Negative (Negative); Nitrite,Urine Negative (Negative); PH, Urine 6.5 (5.0-8.0); Protein,Urine Negative (Negative); Specific Gravity,Urine 1.002 (1.001-1.035); Urobilinogen,Urine <2.0 mg/dL (<2.0)
[2022-09-30 23:25] LABS: Basophils # (A) 0.1 k/uL (0-0.2); Basophils % (A) 1 %; Eosinophils # (A) 0.1 k/uL (0-0.7); Eosinophils % (A) 2 %; HCT 44.6 % (34.0-46.0); HGB 14.8 gm/dL (11.4-16.0); Lymphocytes % (A) 13 %; MCH 29.9 pg (25.0-35.0); MCHC 33.3 g/dL (31.0-37.0); MCV 89.9 fL (80.0-100.0); Mean Platelet Volume 8.1; Monocytes # (A) 0.7 k/uL (0-1.0); Monocytes % (A) 8 %; Neutrophils # (A) 5.8 k/uL (1.3-7.7); Neutrophils % (A) 76 %; Platelet Count 181 k/uL (150-450); RBC 4.96 m/uL (3.80-5.40); RDW 13.4 % (11.5-15.5); WBC 7.7 k/uL (3.8-10.6)
[2022-09-30 23:29] LABS: INR 1.1 (<1.2); Partial Thromboplastin Time 28.3 sec (22.0-30.0); Prothrombin Time 11.5 sec (9.0-12.0)
[2022-09-30 23:35] LABS: ALT 13 U/L (4-34); AST 23 U/L (14-36); African American GFR (CKD) >90 (>60 ml/min/1.73 sqM); Albumin 3.9 g/dL (3.5-5.0); Alkaline Phosphatase 180 U/L (38-126); Anion Gap 9 mmol/L; Blood Urea Nitrogen 11 mg/dL (7-17); Calcium 9.1 mg/dL (8.4-10.2); Carbon Dioxide 26 mmol/L (22-30); Chloride 102 mmol/L (98-107); Creatine Kinase 41 U/L (30-135); Glucose 97 mg/dL (74-99); Non-African American GFR(CKD) >90 (>60 ml/min/1.73 sqM); Potassium 3.9 mmol/L (3.5-5.1); Sodium 137 mmol/L (137-145); Total Bilirubin 0.4 mg/dL (0.2-1.3)
--- NOTE | 2022-09-30 23:42 | ED ---
General Adult HPI - General Chief complaint: Neuro Symptoms/Deficit Stated complaint: POSSIBLE STROKE Time Seen by Provider: 09/30/22 22:39 Source: patient, RN notes reviewed, old records reviewed Mode of arrival: ambulatory Limitations: no limitations - History of Present Illness Initial comments: 72-year-old female presenting for evaluation of abnormal speech. Episode began approximately one hour prior to arrival and resolved. Quickly lasting just minutes. There is no limb weakness or numbness. No headache. No chest pain or palpitations. Patient has no complaints time my evaluation. She is on Xarelto with history of DVT. No prior history of TIA or CVA. - Related Data Home Medications Medication Instructions Recorded Confirmed Anastrozole 1 mg PO DAILY 03/19/20 10/29/21 carvediloL [Coreg] 3.125 mg PO BID 10/29/21 10/29/21 Allergies Allergy/AdvReac Type Severity Reaction Status Date / Time codeine AdvReac Nausea & Verified 10/29/21 19:21 Vomiting EYE DROPS WITH PRESERVATIVE/ Allergy Unknown Uncoded 10/29/21 16:03 BENJAMIN Review of Systems ROS Statement: Those systems with pertinent positive or pertinent negative responses have been documented in the HPI. ROS Other: All systems not noted in ROS Statement are negative. Past Medical History Past Medical History: Cancer, Hypertension, Myocardial Infarction (SD), Osteoarthritis (OA) Additional Past Medical History / Comment(s): 2-5-18 stemi, Breast CA, lung nodule/CA Last Myocardial Infarction Date:: 06/14/2017 History of Any Multi-Drug Resistant Organisms: None Reported Past Surgical History: Heart Catheterization With Stent, Tubal Ligation Additional Past Surgical History / Comment(s): 2-5-18 heart cath w/ stent rca . other past sx:D&C, laser lt eye sx. Past Anesthesia/Blood Transfusion Reactions: Motion Sickness, Postoperative Nausea & Vomiting (PONV) Date of Last Stent Placement:: 06/14/2017 Past Psychological History: No Psychological Hx Reported Smoking Status: Never smoker Past Alcohol Use History: None Reported Past Drug Use History: None Reported - Past Family History Mother Family Medical History: CVA/TIA Father Family Medical History: Cancer Additional Family Medical History / Comment(s): LIP General Exam Limitations: no limitations General appearance: alert, in no apparent distress Head exam: Present: atraumatic, normocephalic Eye exam: Present: normal appearance, PERRL ENT exam: Present: normal exam Neck exam: Present: normal inspection. Absent: tenderness, meningismus Respiratory exam: Present: normal lung sounds bilaterally. Absent: respiratory distress, wheezes Cardiovascular Exam: Present: regular rate, normal rhythm GI/Abdominal exam: Present: soft. Absent: distended, tenderness, guarding Extremities exam: Present: normal inspection Neurological exam: Present: alert, oriented X3, CN II-XII intact, other (NIH is 0). Absent: motor sensory deficit Psychiatric exam: Present: normal affect, normal mood Skin exam: Present: warm, dry, intact Course Vital Signs 09/30/22 10/01/22 22:30 00:00 Temperature 97.9 F Pulse Rate 93 68 Respiratory 18 18 Rate Blood Pressure 168/88 153/81 O2 Sat by Pulse 95 95 Oximetry Medical Decision Making - Medical Decision Making Was pt. sent in by a medical professional or institution (, PA, RETIREMENT ASSISTANT, urgent care, hospital, or detention...) When possible be specific @ -No Did you speak to anyone other than the patient for history (EMS, parent, family, police, friend...)? What history was obtained from this source @ -Patient's son Did you review nursing and triage notes (agree or disagree)? Why? @ -I reviewed and agree with nursing and triage notes Were old charts reviewed (outside hosp., previous admission, EMS record, old EKG, old radiological studies, urgent care reports/EKG's, detention records)? Report findings @ -No old charts were reviewed Differential Diagnosis (chest pain, altered mental status, abdominal pain women, abdominal pain men, vaginal bleeding, weakness, fever, dyspnea, syncope, headache, dizziness, GI bleed, back pain, seizure, CVA, palpatations, mental health, musculoskeletal)? @ Differential CVA Ischemic stroke, hemorrhagic stroke, brain tumor, atypical migraine, Wernicke's encephalopathy, seizure, multiple sclerosis, meningitis, encephalitis, hypoglycemia, Guillain-Serna, electrolytes disturbance, myasthenia gravis.... This is not meant to be an all-inclusive list EKG interpreted by me (3pts min.). @EKG, interpreted by myself, sinus rhythm, low voltage, rate of 81, NE interval 157, QRS duration 85, QTC [address] segment elevation X-rays interpreted by me (1pt min.). @Left-sided pleural effusion improved from prior CT interpreted by me (1pt min.). @Head CT negative for intracranial hemorrhage or mass effect U/S interpreted by me (1pt. min.). @ -None done What testing was considered but not performed or refused? (CT, X-rays, U/S, labs)? Why? @ -None What meds were considered but not given or refused? Why? @ -None Did you discuss the management of the patient with other professionals (professionals i.e. , PA, RETIREMENT ASSISTANT, lab, RT, psych nurse, manager social work, online marketing analyst, teacher, chief resource officer, field case manager)? Give summary @ -No Was smoking cessation discussed for >3mins.? @ -No Was critical care preformed (if so, how long)? @ -No Were there social determinants of health that impacted care today? How? (Homelessness, low income, unemployed, alcoholism, drug addiction, transportation, low edu. Level, literacy, decrease access to med. care, detention, rehab)? @ -No Was there de-escalation of care discussed even if they declined (Discuss DNR or withdrawal of care, Hospice)? DNR status @ -No What co-morbidities impacted this encounter? (DM, HTN, Smoking, COPD, CAD, Cancer, CVA, ARF, Chemo, Hep., AIDS, mental health diagnosis, sleep apnea, morbid obesity)? @ -DVT, breast CA Was patient admitted / discharged? Hospital course, mention meds given and route, prescriptions, significant lab abnormalities, going to OR and other pertinent info. @ -72-year-old female presenting with an episode of expressive aphasia which is resolved. Patient has an NIH is 0. She is in sinus rhythm. Head CT negative for intracranial hemorrhage or mass effect, no acute CVA identified. Patient has normal CBC, normal CMP, normal urinalysis. I did discuss possibility of admission for further evaluation of TIA patient declines she prefers discharge with outpatient follow-up. The patient is on Xarelto and has an NIH of 0. She is given strict return parameters, her son who is at bedside is agreeable. I will respect patient's wishes for discharge at this time. Undiagnosed new problem with uncertain prognosis? @ -No Drug Therapy requiring intensive monitoring for toxicity (Heparin, Nitro, Insulin, Cardizem)? @ -No Were any procedures done? @ -No Diagnosis/symptom? @TIA Acute, or Chronic, or Acute on Chronic? @Acute Uncomplicated (without systemic symptoms) or Complicated (systemic symptoms)? @ -default Side effects of treatment? @ -No Exacerbation, Progression, or Severe Exacerbation? @ -No Poses a threat to life or bodily function? How? (Chest pain, USA, SD, pneumonia, PE, COPD, DKA, ARF, appy, cholecystitis, CVA, Diverticulitis, Homicidal, Suicidal, threat to staff... and all critical care pts) @Yes, CVA - Lab Data Result diagrams: 09/30/22 23:09 09/30/22 23:09 Lab Results 09/30/22 09/30/22 09/30/22 Range/Units 23:09 23:09 23:09 WBC 7.7 (3.8-10.6) k/uL RBC 4.96 (3.80-5.40) m/uL Hgb 14.8 (11.4-16.0) gm/dL Hct 44.6 (34.0-46.0) % MCV 89.9 (80.0-100.0) fL MCH 29.9 (25.0-35.0) pg MCHC 33.3 (31.0-37.0) g/dL RDW 13.4 (11.5-15.5) % Plt Count 181 (150-450) k/uL MPV 8.1 Neutrophils % 76 % Lymphocytes % 13 % Monocytes % 8 % Eosinophils % 2 % Basophils % 1 % Neutrophils # 5.8 (1.3-7.7) k/uL Lymphocytes # 1.0 (1.0-4.8) k/uL Monocytes # 0.7 (0-1.0) k/uL Eosinophils # 0.1 (0-0.7) k/uL Basophils # 0.1 (0-0.2) k/uL PT 11.5 (9.0-12.0) sec INR 1.1 (<1.2) APTT 28.3 (22.0-30.0) sec Sodium (137-145) mmol/L Potassium (3.5-5.1) mmol/L Chloride (98-107) mmol/L Carbon Dioxide (22-30) mmol/L Anion Gap mmol/L BUN (7-17) mg/dL Creatinine (0.52-1.04) mg/dL Est GFR (CKD-EPI)AfAm (>60 ml/min/1.73 sqM) Est GFR (CKD-EPI)NonAf (>60 ml/min/1.73 sqM) Glucose (74-99) mg/dL Calcium (8.4-10.2) mg/dL Total Bilirubin (0.2-1.3) mg/dL AST (14-36) U/L ALT (4-34) U/L Alkaline Phosphatase (38-126) U/L Creatine Kinase (30-135) U/L Troponin I (0.000-0.034) ng/mL Total Protein (6.3-8.2) g/dL Albumin (3.5-5.0) g/dL Urine Color Colorless Urine Appearance Clear (Clear) Urine pH 6.5 (5.0-8.0) Ur Specific [place] 1.002 (1.001-1.035) Urine Protein Negative (Negative) Urine Glucose (UA) Negative (Negative) Urine Ketones Negative (Negative) Urine Blood Negative (Negative) Urine Nitrite Negative (Negative) Urine Bilirubin Negative (Negative) Urine Urobilinogen <2.0 (<2.0) mg/dL Ur Leukocyte Esterase Negative (Negative) 09/30/22 09/30/22 Range/Units 23:09 23:09 WBC (3.8-10.6) k/uL RBC (3.80-5.40) m/uL Hgb (11.4-16.0) gm/dL Hct (34.0-46.0) % MCV (80.0-100.0) fL MCH (25.0-35.0) pg MCHC (31.0-37.0) g/dL RDW (11.5-15.5) % Plt Count (150-450) k/uL MPV Neutrophils % % Lymphocytes % % Monocytes % % Eosinophils % % Basophils % % Neutrophils # (1.3-7.7) k/uL Lymphocytes # (1.0-4.8) k/uL Monocytes # (0-1.0) k/uL Eosinophils # (0-0.7) k/uL Basophils # (0-0.2) k/uL PT (9.0-12.0) sec INR (<1.2) APTT (22.0-30.0) sec Sodium 137 (137-145) mmol/L Potassium 3.9 (3.5-5.1) mmol/L Chloride 102 (98-107) mmol/L Carbon Dioxide 26 (22-30) mmol/L Anion Gap 9 mmol/L BUN 11 (7-17) mg/dL Creatinine 0.61 (0.52-1.04) mg/dL Est GFR (CKD-EPI)AfAm >90 (>60 ml/min/1.73 sqM) Est GFR (CKD-EPI)NonAf >90 (>60 ml/min/1.73 sqM) Glucose 97 (74-99) mg/dL Calcium 9.1 (8.4-10.2) mg/dL Total Bilirubin 0.4 (0.2-1.3) mg/dL AST 23 (14-36) U/L ALT 13 (4-34) U/L Alkaline Phosphatase 180 H (38-126) U/L Creatine Kinase 41 (30-135) U/L Troponin I <0.012 (0.000-0.034) ng/mL Total Protein 7.0 (6.3-8.2) g/dL Albumin 3.9 (3.5-5.0) g/dL Urine Color Urine Appearance (Clear) Urine pH (5.0-8.0) Ur Specific [place] (1.001-1.035) Urine Protein (Negative) Urine Glucose (UA) (Negative) Urine Ketones (Negative) Urine Blood (Negative) Urine Nitrite (Negative) Urine Bilirubin (Negative) Urine Urobilinogen (<2.0) mg/dL Ur Leukocyte Esterase (Negative) Disposition Clinical Impression: Transient cerebral ischemia Disposition: HOME SELF-CARE Condition: Fair Instructions (If sedation given, give patient instructions): Transient Ischemic Attack (ED) Is patient prescribed a controlled substance at d/c from ED?: No Referrals: Angela Dobson MD [Primary Care Provider] - 1-2 days Time of Disposition: 00:41
--- NOTE | 2022-10-01 00:04 | CT ---
EXAMINATION TYPE: CT brain wo con DATE OF EXAM: 10/01/2022 COMPARISON: 03/15/2020 INDICATION: neuro deficit DLP: 1129.5 mGycm, Automated exposure control for dose reduction was used. CONTRAST: None CT of the brain is performed utilizing 3 mm thick sections through the posterior fossa and 3 mm thick sections through the remaining calvarium. Study is performed within 24 hours of arrival to the hosp ital. No abnormal hyperdensity is present to suggest an acute intracranial hemorrhage. No mass lesion is evident. No acute infarcts are evident. Ventricles and sulci are appropriate for the patient age. Paranasal sinuses and mastoid air cells within the [id number] are clear. Some hyperostosis frontalis internus may be present. IMPRESSIONS: 1. No acute intracranial process. Follow-up MRI can be performed as clinically indicated
--- NOTE | 2022-10-01 00:05 | XR ---
EXAMINATION TYPE: XR chest 2V DATE OF EXAM: 10/01/2022 COMPARISON: 10/29/2021 INDICATION: Altered mental status neural deficit TECHNIQUE: Frontal and lateral views of the chest are obtained. FINDINGS: The heart size is normal. The pulmonary vasculature is prominent. There is opacification through the left upper lung field. A left pleural effusion is present. This is improved from the prior exam.. IMPRESSION: 1. Moderate left pleural effusion. 2. Prominent pulmonary vascular markings. Correlate for volume overload.
[2022-10-01 01:19] VITALS: BP 170/89; PULSE 66
== END 2022-10-01 01:10 | disposition home or self-care (01) ==
LOC: EC 22:26
DX: G45.9 Transient cerebral ischemic attack, unspecified (principal); J90 Pleural effusion, not elsewhere classified; I10 Essential (primary) hypertension; I25.2 Old myocardial infarction; Z88.5 Allergy status to narcotic agent; Z88.8 Allergy status to other drugs, medicaments and biological substances
CPT/HCPCS: 36415; 70450; 71046; 80053; 81003; 82550; 84484; 85025; 85610; 85730; 93005; 99285

== ENCOUNTER 2022-10-01 10:07 | Inpatient (IN) | payer MEDICARE, OTHER ==
[2022-10-01] MEDS ORDERED: SODIUM CHLORIDE 0.9% 500 ML 500 ML IV STA (10:44)
[2022-10-01] MEDS ORDERED: methylPREDNISolone SOD SUCCI 125 MG/2 ML VIAL IV STA (10:44)
[2022-10-01] MEDS ORDERED: diphenhydrAMINE 50 MG/ML 1 ML VIAL IVP STA (10:44)
[2022-10-01] MEDS ORDERED: FAMOTIDINE 20 MG/2 ML VIAL IV STA (10:44)
[2022-10-01 10:46] LABS: Glucose,Whole Blood 101 mg/dL (70-110)
[2022-10-01 11:03] LABS: Basophils % (A) 1 %; Eosinophils # (A) 0.1 k/uL (0-0.7); Eosinophils % (A) 1 %; HCT 43.9 % (34.0-46.0); HGB 14.6 gm/dL (11.4-16.0); Lymphocytes # (A) 0.7 k/uL (1.0-4.8); Lymphocytes % (A) 10 %; MCH 29.9 pg (25.0-35.0); MCHC 33.2 g/dL (31.0-37.0); MCV 89.9 fL (80.0-100.0); Mean Platelet Volume 8.9; Monocytes # (A) 0.6 k/uL (0-1.0); Monocytes % (A) 8 %; Neutrophils # (A) 5.6 k/uL (1.3-7.7); Neutrophils % (A) 80 %; Platelet Count 167 k/uL (150-450); RBC 4.89 m/uL (3.80-5.40); RDW 13.4 % (11.5-15.5); WBC 7.1 k/uL (3.8-10.6)
[2022-10-01 11:14] LABS: INR 1.2 (<1.2); Partial Thromboplastin Time 31.6 sec (22.0-30.0); Prothrombin Time 12.3 sec (9.0-12.0)
[2022-10-01 11:34] LABS: ALT 12 U/L (4-34); AST 21 U/L (14-36); African American GFR (CKD) >90 (>60 ml/min/1.73 sqM); Albumin 3.8 g/dL (3.5-5.0); Alkaline Phosphatase 154 U/L (38-126); Anion Gap 6 mmol/L; Blood Urea Nitrogen 9 mg/dL (7-17); Calcium 9.2 mg/dL (8.4-10.2); Carbon Dioxide 29 mmol/L (22-30); Chloride 102 mmol/L (98-107); Creatine Kinase 34 U/L (30-135); Glucose 104 mg/dL (74-99); Non-African American GFR(CKD) >90 (>60 ml/min/1.73 sqM); Potassium 4.3 mmol/L (3.5-5.1); Sodium 137 mmol/L (137-145); Total Bilirubin 0.5 mg/dL (0.2-1.3); Total Protein 6.8 g/dL (6.3-8.2)
--- NOTE | 2022-10-01 12:01 | XR ---
EXAMINATION TYPE: XR chest 2V DATE OF EXAM: 10/01/2022 COMPARISON: 09/30/2022 HISTORY: 72-year-old female confusion, altered mental status TECHNIQUE: AP and lateral views FINDINGS: Heart upper limits of normal in size. Ongoing moderate left and small right pleural effusions. Abnorm al effusion extends up to the left apex. Interstitial prominence. IMPRESSION: Correlate to exclude CHF or pulmonary vascular congestion. Moderate left and small right pleural effu sions with adjacent atelectasis and/or consolidation. Extensive opacities throughout the left lung pe rsist. Pneumonia should be excluded on a clinical basis.
--- NOTE | 2022-10-01 12:06 | CT ---
EXAMINATION TYPE: CT brain wo con CT DLP: 1103.6 mGycm, Automated exposure control for dose reduction was used. DATE OF EXAM: 10/01/2022 11:53 AM COMPARISON: 09/30/2022. CLINICAL INDICATION:Female, 72 years old with history of Neuro deficit, acute, stroke suspected, smal l right sided facial droop, right hand weakness TECHNIQUE: Brain: Axial CT images of the brain were obtained with coronal and sagittal reformats created and rev iewed. Contrast used: None. Oral contrast used: None. FINDINGS: Brain: Extra-axial spaces: No abnormal extra-axial fluid collections. Ventricular system: Within normal limits Cerebral parenchyma: Mineralization of the basal ganglia bilaterally. No acute intraparenchymal hemor rhage or mass effect. The stoddard-white junction is well differentiated. Cerebellum: Unremarkable. Mass effect: No evidence of midline shift. Intracranial vasculature: Atherosclerotic calcifications of the intracranial vessels. Soft tissues: Normal. Calvarium/osseous structures: No depressed skull fracture. Benign hyperostosis frontalis noted. Paranasal sinuses and mastoid air cells: Mild scattered paranasal sinus disease. Visualized orbits: Orbital contents are intact. IMPRESSION: No acute intracranial process.
--- NOTE | 2022-10-01 12:30 | CT ---
EXAMINATION TYPE: CT angio head neck CT DLP: 416.8 mGycm, Automated exposure control for dose reduction was used. DATE OF EXAM: 10/01/2022 12:08 PM COMPARISON: CT head same day. CLINICAL INDICATION:Female, 72 years old with history of Neuro deficit, acute, stroke suspected; smal l right sided facial droop, right hand weakness TECHNIQUE: Axially acquired helical CT angiogram of the head and neck was obtained with contrast. Axi al images are supplemented with 3D reconstructions [facility] NASCET criteria used. Contrast used:65 mL of Isovue 370 with IV Contrast, Oral contrast used: None. FINDINGS: CTA HEAD: No evidence of acute intracranial hemorrhage, mass effect, or midline shift. The ventricles, sulci, a nd cisterns are unremarkable. The visualized portions of the internal carotid arteries, middle cerebral arteries, anterior cerebral arteries, and posterior cerebral arteries are patent. Internal carotid artery cusp patient's within the intracranial portions without hemodynamically significant stenosis. Hypoplastic right A1 segment. The basilar and vertebral arteries are patent. CTA NECK: Right Carotid System: The common carotid artery and external carotid artery are patent. The carotid bifurcation demonstrate s no evidence of hemodynamically significant stenosis. The remaining portions of the internal carotid artery demonstrate normal size without significant narrowing. Left Carotid System: The common carotid artery and external carotid artery are patent. The carotid bifurcation demonstrate s no evidence of hemodynamically significant stenosis. The remaining portions of the internal carotid artery demonstrate normal size without significant narrowing. Vertebral arteries are patent without evidence hemodynamically significant stenosis. There is a three-vessel aortic arch. The origins of the great vessels are patent. No evidence of hemo dynamically significant stenosis. Upper thorax: Bilateral pleural effusions. There is atelectasis changes with pulmonary vascular conge stion. Scattered patchy opacities and nodular like opacities are present. There is a split pleural si gn on the left. Right low density thyroid nodule measuring 12 mm. IMPRESSION: 1. No evidence of dissection of the cervical internal carotid arteries or vertebral arteries or any evidence of significant stenosis at the carotid bifurcations. 2. No evidence of intracranial high-grade stenosis or intracranial aneurysm. Intracranial atheroscle rosis of the internal carotid arteries without hemodynamically significant stenosis. 3. New right and increased size of left pleural effusions. There is pleural sign in the left which c ould represent empyema. 4. Persistent scattered nodular opacities likely representing metastatic disease from patient's know n malignancy.
[2022-10-01 12:40] LABS: Appearance,Urine Clear (Clear); Bilirubin,Urine Negative (Negative); Blood,Urine Negative (Negative); Color,Urine Light Yellow; Glucose,Urine (UA) Negative (Negative); Ketones,Urine Negative (Negative); Leukocyte Esterase,Urine Negative (Negative); Nitrite,Urine Negative (Negative); PH, Urine 6.5 (5.0-8.0); Protein,Urine Negative (Negative); Specific Gravity,Urine 1.015 (1.001-1.035); Urobilinogen,Urine <2.0 mg/dL (<2.0)
[2022-10-01 13:04] LABS: Amphetamine Screen,Urine Not Detected (NotDetected); Barbiturate Screen,Urine Not Detected (NotDetected); Benzodiazepines Screen,Urine Not Detected (NotDetected); Cocaine Screen,Urine Not Detected (NotDetected); Methadone Screen, Urine Not Detected (NotDetected); Opiate Screen,Urine Not Detected (NotDetected); Oxycodone Screen, Urine Not Detected (NotDetected); Phencyclidine Screen,Urine Not Detected (NotDetected); Tricyclic Antidepressant,Urine Not Detected (NotDetected); Urn Cannabinoid Scrn Not Detected (NotDetected)
[2022-10-01] MEDS ORDERED: ASPIRIN 325 MG TAB PO STA (13:07)
[2022-10-01] MEDS ORDERED: ACETAMINOPHEN TAB 500 MG TAB PO STA (13:29)
--- NOTE | 2022-10-01 13:36 | ED ---
General Adult HPI - General Chief complaint: Neuro Symptoms/Deficit Stated complaint: stroke post op Time Seen by Provider: 10/01/22 10:25 Source: patient, family, RN notes reviewed, old records reviewed Mode of arrival: wheelchair Limitations: no limitations - History of Present Illness Initial comments: Patient is a 72-year-old female with past medical history remarkable for lung cancer with recurrent pleural effusion, DVT on xeralto who presents emergency Department as a reevaluation for stroke like symptoms. Patient presented last night with similar symptoms, with slight right-sided facial droop, as well as patient being mute and unable to speak but she is able to communicate with yes and no by shaking her head. Has chronic pleuritic chest discomfort. No other acute complaints at this time. Denies any other pain. Denies any sensory de ficits. Presents for further evaluation. Workup yesterday was remarkable for a CT brain that showed no obvious process. On review of the chart, it appears that the mission for MRI was offered but was declined at that time. Returns with family over concern for worsening of symptoms. Per family, specifically patient's son who is at baseline, the right-sided facial droop never fully resolved last night but the speech and mutism did resolve which is why they elected to go home and follow up outpatient. - Related Data Home Medications Medication Instructions Recorded Confirmed Rivaroxaban [Xarelto] 20 mg PO DAILY 10/01/22 10/01/22 Allergies Allergy/AdvReac Type Severity Reaction Status Date / Time codeine AdvReac Nausea & Verified 10/01/22 11:29 Vomiting EYE DROPS WITH PRESERVATIVE/ Allergy Unknown Uncoded 10/29/21 16:03 BENJAMIN Review of Systems ROS Statement: Those systems with pertinent positive or pertinent negative responses have been documented in the HPI. Review of Systems: CONST: Denies fever EYES: Denies blurry vision ENT: Denies nasal congestion C/V: Denies Chest pain RESP: Denies shortness of breath GI: Denies abdominal pain : Denies dysuria SKIN: Denies rash. MSK: Denies joint pain. NEURO: Denies headache ROS Other: All systems not noted in ROS Statement are negative. Past Medical History Past Medical History: Cancer, Hypertension, Myocardial Infarction (OR), Osteoarthritis (OA) Additional Past Medical History / Comment(s): 2-5-18 stemi, Breast CA, lung nodule/CA Last Myocardial Infarction Date:: 06/14/2017 History of Any Multi-Drug Resistant Organisms: None Reported Past Surgical History: Heart Catheterization With Stent, Tubal Ligation Additional Past Surgical History / Comment(s): 2 heart cath w/ stent rca . other past sx:D&C, laser lt eye sx. Past Anesthesia/Blood Transfusion Reactions: Motion Sickness, Postoperative Nausea & Vomiting (PONV) Date of Last Stent Placement:: 06/14/2017 Past Psychological History: No Psychological Hx Reported Smoking Status: Never smoker Past Alcohol Use History: None Reported Past Drug Use History: None Reported - Past Family History Mother Family Medical History: CVA/TIA Father Family Medical History: Cancer Additional Family Medical History / Comment(s): LIP General Exam - General Exam Comments Initial Comments: General: Appears in no acute distress. HEAD: Normal with no signs of head trauma. EYES: PERRLA, EOMI, conjunctiva normal, no discharge. ENT: Hearing grossly intact, normal oropharynx. RESPIRATORY: Clear breath sounds bilaterally. No wheezes, rales, or rhonchi. C/V: Regular rate and rhythm. S1 and S2 auscultated, no edema, peripheral pulses 2+ and intact throughout ABD: Abd is soft, nontender, nondistended EXT: Normal range of motion, no obvious deformity SKIN: No rashes or lesions observed on exposed skin. NEURO: Difficult to fully evaluate due to the patient not speaking. Is alert, and appears to be oriented to place and person. Difficult to evaluate for time. Patient is communicating by shaking her head. No focal deficits. NIH is 6, 5 points for being mute despite communicating without voice and 1 point for slight right sided smile asymmetry. Limitations: no limitations Course Vital Signs 10/01/22 10/01/22 10/01/22 10:12 10:32 10:35 Temperature 99.0 F Pulse Rate 84 83 82 Respiratory 18 18 18 Rate Blood Pressure 160/87 142/89 142/89 O2 Sat by Pulse 94 L 93 L 93 L Oximetry 10/01/22 10/01/22 10/01/22 10:45 11:00 11:15 Temperature Pulse Rate 75 74 75 Respiratory 18 18 18 Rate Blood Pressure 150/69 146/80 162/89 O2 Sat by Pulse 93 L 94 L 96 Oximetry 10/01/22 10/01/2210/01/23 11:30 12:00 12:15 Temperature Pulse Rate 79 78 Respiratory 18 18 Rate Blood Pressure 159/92 167/82 162/75 O2 Sat by Pulse 94 L 95 Oximetry 10/01/22 10/01/22 10/01/22 12:30 13:00 13:27 Temperature 98.0 F Pulse Rate 77 73 75 Respiratory 16 16 Rate Blood Pressure 148/77 158/90 152/83 O2 Sat by Pulse 95 Oximetry Medical Decision Making - Medical Decision Making Was pt. sent in by a medical professional or institution (, PA, RV TECHNICIAN, urgent care, hospital, or custodial...) When possible be specific @ -No Did you speak to anyone other than the patient for history (EMS, parent, family, police, friend...)? What history was obtained from this source @ -No Did you review nursing and triage notes (agree or disagree)? Why? @ -I reviewed and agree with nursing and triage notes Were old charts reviewed (outside hosp., previous admission, EMS record, old EKG, old radiological studies, urgent care reports/EKG's, custodial records)? Report findings @ -Old charts reviewed from visit yesterday for identical complaints. Differential Diagnosis (chest pain, altered mental status, abdominal pain women, abdominal pain men, vaginal bleeding, weakness, fever, dyspnea, syncope, headache, dizziness, GI bleed, back pain, seizure, CVA, palpatations, mental health, musculoskeletal)? @ -Differential CVA Ischemic stroke, hemorrhagic stroke, brain tumor, atypical migraine, Wernicke's encephalopathy, seizure, multiple sclerosis, meningitis, encephalitis, hypoglycemia, Guillain-Serna, electrolytes disturbance, myasthenia gravis.... This is not meant to be an all-inclusive list EKG interpreted by me (3pts min.). @ -As above X-rays interpreted by me (1pt min.). @ -Chest x-ray shows bilateral pleural effusions, as well as chronic finding secondary to lung cancer. CT interpreted by me (1pt min.). @ -CT brain revealed no evidence of obvious acute intracranial process. CT angiogram of the brain revealed no obvious acute intracranial process. There is a large left-sided pleural effusion as well as right-sided pleural effusion likely secondary to from metastatic disease. U/S interpreted by me (1pt. min.). @ -None done What testing was considered but not performed or refused? (CT, X-rays, U/S, labs)? Why? @ -None What meds were considered but not given or refused? Why? @ -None Did you discuss the management of the patient with other professionals (professionals i.e. , PA, RV TECHNICIAN, lab, RT, psych nurse, social scientist, director presales, teacher, fisheries technical officer, family independence case manager)? Give summary @ -I discussed with Dr. Taylor who accepted the patient. I discussed the case with Dr. Dye who was in agreement with the plan and recommended stat MRI as well as EEG. Was in agreement with continuing these are all toe and starting the patient on aspirin. Was smoking cessation discussed for >3mins.? @ -No Was critical care preformed (if so, how long)? @ -yes, 35 min. Were there social determinants of health that impacted care today? How? (Homelessness, low income, unemployed, alcoholism, drug addiction, transpo rtation, low edu. Level, literacy, decrease access to med. care, residential, rehab)? @ -No Was there de-escalation of care discussed even if they declined (Discuss DNR or withdrawal of care, Hospice)? DNR status @ -No What co-morbidities impacted this encounter? (DM, HTN, Smoking, COPD, CAD, Cancer, CVA, ARF, Chemo, Hep., AIDS, mental health diagnosis, sleep apnea, morbid obesity)? @ -Lung cancer, DVT on blood thinner Was patient admitted / discharged? Hospital course, mention meds given and route, prescriptions, significant lab abnormalities, going to OR and other pertinent info. @ -Based on the patient's presentation and physical exam, presents over concern for neurological symptoms. Patient was evaluated yesterday for identical symptoms including a facial droop as well as being mute. Patient yesterday had continued mild right-sided facial drooping throughout her stay here, however the mutism resolved prior to arrival. CT brain yesterday was negative. Offered admission but elected to go home. They'll return with similar complaints. Patient currently has an NIH of 6. Last known well officially was sometime yesterday evening. Workup yesterday was unremarkable. She is continued to have at least an NIH of 1 for subtle right-sided smile asymmetry per family since yesterday when evaluated. Therefore stroke pager was not activated that she is having continued symptoms from yesterday but we will repeat CT imaging as well as obtain CT angiogram. She is not a TPA candidate because last known well was last night and any benefit is far outweighed by the risk and she is also on blood thinners which affects increasing the risk of bleeding. Patient and family members were in agreement with this plan. Vital signs within acceptable limits. Patient apparently had a possible reaction to contrast dye and penicillin for will receive prescanning medications. They were in agreement this plan. EKG shows no acute process. Imaging shows no obvious acute process, but does have the pleural effusions on the left and right with a history of him secondary to metastasis. Labs are remarkable for an undetectable troponin and otherwise are within acceptable limits. I did the patient as well as family. Neurological exam remains unchanged, some improved word attempts such as "yes.". I would like to admit her to the hospital for evaluation by neurology. They were in agreement this plan. I spoke with the admitting physician Dr. Taylor accept the patient. I consulted pulmonology to evaluate the pleural effusions. I spoke with Dr. Dye of neurology, and he was in agreement with this plan. Was in agreement with the MRI which was ordered by myself and he ordered an EEG. As the patient is under also, he was also in agreement with administering aspirin. Patient will be admitted in stable condition at this time for further monitoring. Undiagnosed new problem with uncertain prognosis? @ -No Drug Therapy requiring intensive monitoring for toxicity (Heparin, Nitro, Insulin, Cardizem)? @ -No Were any procedures done? @ -No Diagnosis/symptom? @ -CVA Acute, or Chronic, or Acute on Chronic? @ -Acute Uncomplicated (without systemic symptoms) or Complicated (systemic symptoms)? @ -Complicated Side effects of treatment? @ -No Exacerbation, Progression, or Severe Exacerbation? @ -No Poses a threat to life or bodily function? How? (Chest pain, [place], OR, pneumonia, PE, COPD, DKA, ARF, appy, cholecystitis, CVA, Diverticulitis, Homicidal, Suicidal, threat to staff... and all critical care pts) @ -Yes Diagnosis/symptom? @ -Bilateral pleural effusion secondary to her known metastatic disease, DVT on blood thinner Acute, or Chronic, or Acute on Chronic? @ -Chronic Uncomplicated (without systemic symptoms) or Complicated (systemic symptoms)? @ -Uncomplicated Side effects of treatment? @ -none Exacerbation, Progression, or Severe Exacerbation] @ -no Poses a threat to life or bodily function? @ -Yes - Lab Data Result diagrams: 10/01/22 10:56 10/01/22 10:56 Lab Results 10/01/22 10/01/22 10/01/22 Range/Units 10:43 10:56 10:56 WBC 7.1 (3.8-10.6) k/uL RBC 4.89 (3.80-5.40) m/uL Hgb 14.6 (11.4-16.0) gm/dL Hct 43.9 (34.0-46.0) % MCV 89.9 (80.0-100.0) fL MCH 29.9 (25.0-35.0) pg MCHC 33.2 (31.0-37.0) g/dL RDW 13.4 (11.5-15.5) % Plt Count 167 (150-450) k/uL MPV 8.9 Neutrophils % 80 % Lymphocytes % 10 % Monocytes % 8 % Eosinophils % 1 % Basophils % 1 % Neutrophils # 5.6 (1.3-7.7) k/uL Lymphocytes # 0.7 L (1.0-4.8) k/uL Monocytes # 0.6 (0-1.0) k/uL Eosinophils # 0.1 (0-0.7) k/uL Basophils # 0.0 (0-0.2) k/uL PT 12.3 H (9.0-12.0) sec INR 1.2 H (<1.2) APTT 31.6 H (22.0-30.0) sec Sodium (137-145) mmol/L Potassium (3.5-5.1) mmol/L Chloride (98-107) mmol/L Carbon Dioxide (22-30) mmol/L Anion Gap mmol/L BUN (7-17) mg/dL Creatinine (0.52-1.04) mg/dL Est GFR (CKD-EPI)AfAm (>60 ml/min/1.73 sqM) Est GFR (CKD-EPI)NonAf (>60 ml/min/1.73 sqM) Glucose (74-99) mg/dL POC Glucose (mg/dL) 101 (70-110) mg/dL POC Glu [facility] Registrar ID Rosalinda Carroll Calcium (8.4-10.2) mg/dL Total Bilirubin (0.2-1.3) mg/dL AST (14-36) U/L ALT (4-34) U/L Alkaline Phosphatase (38-126) U/L Creatine Kinase (30-135) U/L Troponin I (0.000-0.034) ng/mL Total Protein (6.3-8.2) g/dL Albumin (3.5-5.0) g/dL Urine Color Urine Appearance (Clear) Urine pH (5.0-8.0) Ur Specific [place] (1.001-1.035) Urine Protein (Negative) Urine Glucose (UA) (Negative) Urine Ketones (Negative) Urine Blood (Negative) Urine Nitrite (Negative) Urine Bilirubin (Negative) Urine Urobilinogen (<2.0) mg/dL Ur Leukocyte Esterase (Negative) Urine Opiates Screen (NotDetected) Ur Oxycodone Screen (NotDetected) Urine Methadone Screen (NotDetected) Ur Propoxyphene Screen (NotDetected) Ur Barbiturates Screen (NotDetected) U Tricyclic Antidepress (NotDetected) Ur Phencyclidine Scrn (NotDetected) Ur Amphetamines Screen (NotDetected) U Methamphetamines Scrn (NotDetected) U Benzodiazepines Scrn (NotDetected) Urine Cocaine Screen (NotDetected) U Marijuana (THC) Screen (NotDetected) 10/01/22 10/01/22 10/01/22 Range/Units 10:56 10:56 12:11 WBC (3.8-10.6) k/uL RBC (3.80-5.40) m/uL Hgb (11.4-16.0) gm/dL Hct (34.0-46.0) % MCV (80.0-100.0) fL MCH (25.0-35.0) pg MCHC (31.0-37.0) g/dL RDW (11.5-15.5) % Plt Count (150-450) k/uL MPV Neutrophils % % Lymphocytes % % Monocytes % % Eosinophils % % Basophils % % Neutrophils # (1.3-7.7) k/uL Lymphocytes # (1.0-4.8) k/uL Monocytes # (0-1.0) k/uL Eosinophils # (0-0.7) k/uL Basophils # (0-0.2) k/uL PT (9.0-12.0) sec INR (<1.2) APTT (22.0-30.0) sec Sodium 137 (137-145) mmol/L Potassium 4.3 (3.5-5.1) mmol/L Chloride 102 (98-107) mmol/L Carbon Dioxide 29 (22-30) mmol/L Anion Gap 6 mmol/L BUN 9 (7-17) mg/dL Creatinine 0.56 (0.52-1.04) mg/dL Est GFR (CKD-EPI)AfAm >90 (>60 ml/min/1.73 sqM) Est GFR (CKD-EPI)NonAf >90 (>60 ml/min/1.73 sqM) Glucose 104 H (74-99) mg/dL POC Glucose (mg/dL) (70-110) mg/dL POC Glu [facility] Registrar ID Calcium 9.2 (8.4-10.2) mg/dL Total Bilirubin 0.5 (0.2-1.3) mg/dL AST 21 (14-36) U/L ALT 12 (4-34) U/L Alkaline Phosphatase 154 H (38-126) U/L Creatine Kinase 34 (30-135) U/L Troponin I <0.012 (0.000-0.034) ng/mL Total Protein 6.8 (6.3-8.2) g/dL Albumin 3.8 (3.5-5.0) g/dL Urine Color Light Yellow Urine Appearance Clear (Clear) Urine pH 6.5 (5.0-8.0) Ur Specific [place] 1.015 (1.001-1.035) Urine Protein Negative (Negative) Urine Glucose (UA) Negative (Negative) Urine Ketones Negative (Negative) Urine Blood Negative (Negative) Urine Nitrite Negative (Negative) Urine Bilirubin Negative (Negative) Urine Urobilinogen <2.0 (<2.0) mg/dL Ur Leukocyte Esterase Negative (Negative) Urine Opiates Screen (NotDetected) Ur Oxycodone Screen (NotDetected) Urine Methadone Screen (NotDetected) Ur Propoxyphene Screen (NotDetected) Ur Barbiturates Screen (NotDetected) U Tricyclic Antidepress (NotDetected) Ur Phencyclidine Scrn (NotDetected) Ur Amphetamines Screen (NotDetected) U Methamphetamines Scrn (NotDetected) U Benzodiazepines Scrn (NotDetected) Urine Cocaine Screen (NotDetected) U Marijuana (THC) Screen (NotDetected) 10/01/22 Range/Units 12:11 WBC (3.8-10.6) k/uL RBC (3.80-5.40) m/uL Hgb (11.4-16.0) gm/dL Hct (34.0-46.0) % MCV (80.0-100.0) fL MCH (25.0-35.0) pg MCHC (31.0-37.0) g/dL RDW (11.5-15.5) % Plt Count (150-450) k/uL MPV Neutrophils % % Lymphocytes % % Monocytes % % Eosinophils % % Basophils % % Neutrophils # (1.3-7.7) k/uL Lymphocytes # (1.0-4.8) k/uL Monocytes # (0-1.0) k/uL Eosinophils # (0-0.7) k/uL Basophils # (0-0.2) k/uL PT (9.0-12.0) sec INR (<1.2) APTT (22.0-30.0) sec Sodium (137-145) mmol/L Potassium (3.5-5.1) mmol/L Chloride (98-107) mmol/L Carbon Dioxide (22-30) mmol/L Anion Gap mmol/L BUN (7-17) mg/dL Creatinine (0.52-1.04) mg/dL Est GFR (CKD-EPI)AfAm (>60 ml/min/1.73 sqM) Est GFR (CKD-EPI)NonAf (>60 ml/min/1.73 sqM) Glucose (74-99) mg/dL POC Glucose (mg/dL) (70-110) mg/dL POC Glu [facility] Registrar ID Calcium (8.4-10.2) mg/dL Total Bilirubin (0.2-1.3) mg/dL AST (14-36) U/L ALT (4-34) U/L Alkaline Phosphatase (38-126) U/L Creatine Kinase (30-135) U/L Troponin I (0.000-0.034) ng/mL Total Protein (6.3-8.2) g/dL Albumin (3.5-5.0) g/dL Urine Color Urine Appearance (Clear) Urine pH (5.0-8.0) Ur Specific [place] (1.001-1.035) Urine Protein (Negative) Urine Glucose (UA) (Negative) Urine Ketones (Negative) Urine Blood (Negative) Urine Nitrite (Negative) Urine Bilirubin (Negative) Urine Urobilinogen (<2.0) mg/dL Ur Leukocyte Esterase (Negative) Urine Opiates Screen Not Detected (NotDetected) Ur Oxycodone Screen Not Detected (NotDetected) Urine Methadone Screen Not Detected (NotDetected) Ur Propoxyphene Screen Not Detected (NotDetected) Ur Barbiturates Screen Not Detected (NotDetected) U Tricyclic Antidepress Not Detected (NotDetected) Ur Phencyclidine Scrn Not Detected (NotDetected) Ur Amphetamines Screen Not Detected (NotDetected) U Methamphetamines Scrn Not Detected (NotDetected) U Benzodiazepines Scrn Not Detected (NotDetected) Urine Cocaine Screen Not Detected (NotDetected) U Marijuana (THC) Screen Not Detected (NotDetected) - EKG Data -: EKG Interpreted by Me EKG Comments: 12-lead Electrocardiogram Interpretation Note EKG was reviewed and interpreted by myself. 12-lead ECG performed at 1027 Is interpreted by me as revealing normal sinus rhythm at a rate of 78 beats per minute. [place] is normal. MD interval is 161 ms, QRS duration is 87 ms, QTc is 403 ms.. There were no ST or T wave abnormalities to suggest myocardial ischemia or injury. R wave progression across the precordium was satisfactory. By my interpretation this EKG is non-diagnostic for acute ischemia. Critical Care Time Critical Care Time: Yes Total Critical Care Time: 35 Disposition Clinical Impression: Cerebrovascular accident (CVA), Cancer of lung, Pleural effusion Disposition: ADMITTED IP TO THIS HOSP Condition: Stable Time of Disposition: 12:59
--- NOTE | 2022-10-01 15:38 | P.CNNES ---
History of Present Illness Consult date: 10/01/22 Requesting physician: Cheko Benavides Reason for Consult: cva, ams History of Present Illness: This is a 72-year-old woman with history of right breast cancer, left lung cancer and is on chemotherapy, atrial fibrillation, DVT about 3 weeks ago and the left lower extremity and is on Xarelto and pleural effusion who presented emergency department because of mild right facial weakness, speech difficulty. History was obtained from the patient's son was at bedside. It seems that the patient had an episode yesterday at 9:30 in which she had right facial weakness and unable to get her words out and was drooling so she had a CT in our facility and felt somewhat better but continued to have some subtle right facial weakness and she prefer to be discharged and follow up as an outpatient. Per the ED note was felt the patient NIH was a 0 and her aphasia has resolved. Per the patient's son maybe she had some subtle right facial weakness that still continued even after. Then today around 10:30 she had a similar episode that she could not get her words out having difficulty talking with the some right facial weakness. She denies of any focal weakness, headache, difficulty swallowing denies any history of stroke or TIA. No history of seizure. Some of the workup during his hospital visit consisted of: NIH stroke scale per ED was a 6. 5 points for being mute despite communicating without voice and 1 point for slight right facial asymmetry. CT head is reported as no acute intracranial process. I personally reviewed that a CT and there is no acute or subacute ischemia seen. There is no mass affect. CT angiography of the head and neck was reported as no evidence of dissection of the cervical internal carotid arteries or vertebral artery or any evidence of significant stenosis at the carotid bifurcation. No evidence of intracranial high-grade stenosis or intracranial aneurysm. Intracranial atherosclerosis of the internal carotid artery without hemodynamic stenosis. Right and increased size of left pleural effusion. There is a pleural sign in the left which could represent empyema. Persistent that scattered nodular opacity likely representing metastatic disease from the patient known tera denny. EKG is reported as sinus rhythm. Low QRS voltage No IV TPA per the ED team since the patient had symptoms from yesterday (>4.5 hours from last normal) and her symptoms has not resolved upon discharge from the ED yesterday and the risk outweighed the benefit. Is also on anticoagulation and risk outweigh the benefit. Review of Systems Review of system: The 12 point system was reviewed and apparent positive and negative per HPI. Past Medical History Past Medical History: Cancer, Hypertension, Myocardial Infarction (DE), Osteoarthritis (OA) Additional Past Medical History / Comment(s): 06-14-17 stemi, Breast CA, lung nodule/CA Last Myocardial Infarction Date:: 06/14/2017 History of Any Multi-Drug Resistant Organisms: None Reported Past Surgical History: Heart Catheterization With Stent, Tubal Ligation Additional Past Surgical History / Comment(s): 06-14-17 heart cath w/ stent rca . other past sx:D&C, laser lt eye sx. Past Anesthesia/Blood Transfusion Reactions: Motion Sickness, Postoperative Nausea & Vomiting (PONV) Date of Last Stent Placement:: 06/14/2017 Past Psychological History: No Psychological Hx Reported Smoking Status: Never smoker Past Alcohol Use History: None Reported Past Drug Use History: None Reported - Past Family History Mother Family Medical History: CVA/TIA Father Family Medical History: Cancer Additional Family Medical History / Comment(s): LIP Medications and Allergies Home Medications Medication Instructions Recorded Confirmed Type Rivaroxaban [Xarelto] 20 mg PO DAILY 10/01/22 10/01/22 History Allergies Allergy/AdvReac Type Severity Reaction Status Date / Time codeine AdvReac Nausea & Verified 10/01/22 11:29 Vomiting EYE DROPS WITH PRESERVATIVE/ Allergy Unknown Uncoded 10/29/21 16:03 BENJAMIN Physical Examination - Vital Signs Vital Signs: Vital Signs Temp Pulse Resp BP Pulse Ox 10/01/22 13:27 98.0 F 75 16 152/83 10/01/22 13:00 73 158/90 10/01/22 12:30 77 16 148/77 95 10/01/22 12:15 78 18 162/75 95 10/01/22 12:00 79 18 167/82 94 L 10/01/22 11:30 159/92 10/01/22 11:15 75 18 162/89 96 10/01/22 11:00 74 18 146/80 94 L 10/01/22 10:45 75 18 150/69 93 L 10/01/22 10:35 82 18 142/89 93 L 10/01/22 10:32 83 18 142/89 93 L 10/01/22 10:12 99.0 F 84 18 160/87 94 L Intake and Output 10/01/22 10/01/22 10/01/22 06:59 14:59 22:59 Other: Weight 58.967 kg GENERAL: The patient is lying in bed and is not in acute distress. CHEST: No edema noted in extremities. LUNG: Not labored breathing. NEUROLOGICAL: Higher mental function: The patient is awake, alert, oriented to self and time. She has significant expressive aphasia. She is able to follow simple commands. Has word finding difficulties. No neglect. Cranial nerves: The pupils are round, equal and reactive to light. Visual patel are full to confrontation throughout. Extraocular movement is intact no nystagmus is noted. Facial sensation is normal to touch throughout. The facial strength is mild right lower facial weakness. Has moderate dysarthria. Has hypophonia. Tongue is midline and moved [id number] without any difficulty. No dysarthria is noted. Shoulder shrug is normal bilaterally. Motor: The strength is 5 over 5 throughout. Normal tone and bulk. Cerebellum: Normal finger to nose bilaterally. Sensation: Sensation is normal to touch throughout. Reflexes (right/left): 2+ throughout. Plantars are mute bilaterally. Results - Laboratory Findings CBC and BMP: 10/01/22 10:56 10/01/22 10:56 Abnormal Lab Findings: Abnormal Labs 10/01/22 10/01/22 10/01/22 10:56 10:56 10:56 Lymphocytes # 0.7 L PT 12.3 H INR 1.2 H APTT 31.6 H Glucose 104 H Alkaline Phosphatase 154 H Assessment and Plan Assessment: This is a 72-year-old woman who had the expressive aphasia and right facial weakness since 09/30/2022. Initially she presented to our facility yesterday and her symptoms has improved except some subtle right lower facial weakness but today as she presented again with expressive aphasia, dysarthria with right facial weakness Likely acute ischemic stroke. NIH stroke scale is a 6. History of left lung cancer History of right breast cancer History of recent DVT about 3 weeks ago and is on Xarelto Left Pleural effusion on CTA History of pleural effusion History of atrial fibrillation Plan: I spoke with the ED physician and we'll pursue stat MRI of the brain with and without to rule out stroke as well as brain metastases. Ordered EEG urgently to rule out any underlying seizure. Ordered 2-D echo. Lipid panel is ordered as bending Patient is given aspirin 325 once in the ED and I started the patient on aspirin 81mg daily. These avoid the Xarelto for now until the we received the MRI to evaluate the size of the stroke to avoid any hemorrhagic conversion. But if anticoagulation benefit outweighed the risk then continues IV heparin drip for now and avoid boluses and keep the PTT between 45 and 60. Start the patient on Lipitor 40 mg daily at bedtime for second stroke prophylaxis Continue neuro checks On cardiac monitoring PT OT and [employer]NAGER [employer]PONSIBILITY are consulted Recommend permissive hypertension and control the blood pressure if it's more than 220 systolic and diastolic more than 110 for 24 hours then gradually come down. Pulmonary team is consulted for pleural effusion and history of lung cancer We'll defer the rest of the medical management to primary team For DVT prophylaxis I started the patient on subcu heparin 5000 units every 12 hours Plan discussed with the patient and her son was at bedside. Thank you for the consultation Time with Patient: Greater than 30
--- NOTE | 2022-10-01 16:14 | MR ---
EXAMINATION TYPE: MR brain wo/w con DATE OF EXAM: 10/01/2022 3:59 PM CLINICAL INDICATION:Female, 72 years old with history of cva; Right arm weakness, rt facial droop, ne uro deficits. COMPARISON: CT 09/29/2022 TECHNIQUE: Multi planar, multi sequence imaging was performed through the brain including: T1, T2, In version recovery, susceptibility weighted imaging and gradient echo imaging and Diffusion weighted im aging. The patient was then given intravenous contrast and multi planar, T1 fat-saturation images wer e obtained. IV Contrast: 6 cc Gadavist FINDINGS: Scattered left frontal, right occipital, right frontal right posterior parietal lobe foci of restrict ed diffusion. The stoddard-white junctions, ventricular system, basal cisterns appear unremarkable Intrac ranial arterial flow voids are maintained. Midline structures show no abnormality. Scattered foci of high T2 signal intensity are seen within the periventricular white matter. The susceptibility weighte d images do not reveal any evidence for micro-hemorrhage. After administration of gadolinium, no abno rmal enhancement is seen. The bone marrow signal is within normal limits. Paranasal sinuses and mastoid air cells: No significant paranasal sinus disease. Visualized orbits: Orbital contents are intact. IMPRESSION: 1. Scattered foci of restricted diffusion compatible with acute/subacute CVA. Given multiple vascula r distributions correlate for embolic phenomenon. 2. No abnormal postcontrast enhancement, no evidence for mass. 3. Nonspecific white matter changes likely secondary to chronic small vessel ischemic disease.
--- NOTE | 2022-10-01 18:55 | P.HPIM ---
History of Present Illness H&P Date: 10/01/22 Kat Kim, is a 72-year-old female who presented to [facility] emergency room with a chief complaint difficulty with her speech, and right facial drooping, patient presented to emergency room with similar complaints yesterday, at that time she was offered MRI and admission by emergency room physician however she felt that she was improving and she opted to go home. However over the next several hours patient developed complete aphasia, she was brought back to the emergency room by her family. She was evaluated in the emergency room vital examination on presentation re vealed a temperature of 99 pulse 84 respiration 18 blood pressure 160/87 pulse ox 94% on room air Laboratory data revealed a white blood count of 7.1 hemoglobin 14.6 platelet count 167 sodium 137 potassium 4.3 chloride 102 CO2 29 BUN 9 creatinine 0.56 urine analysis revealed no evidence of infection and urine toxicology screen was negative Testing in the emergency room revealed, computed tomography scan of the brain without contrast was done in the emergency room and revealed no acute intracrani al process, CT angiogram of the brain done in the emergency room revealed no evidence of dissection of the cervical internal carotid arteries or vertebral arteries or any evidence of significant stenosis at the carotid bifurcation there was no evidence of intracranial high-grade stenosis or intracranial aneurysm Patient was admitted to medical floor for further evaluation and treatment, neurology consultation was requested Past medical history is significant for history of breast cancer, history of lung cancer, history of atrial fibrillation, history of lower extremity DVT, patient was maintained on Xarelto At home Past Medical History Past Medical History: Cancer, Hypertension, Myocardial Infarction (CT), Osteoarthritis (OA) Additional Past Medical History / Comment(s): 2-5-18 stemi, Breast CA, lung nodule/CA Last Myocardial Infarction Date:: 06/14/2017 History of Any Multi-Drug Resistant Organisms: None Reported Past Surgical History: Heart Catheterization With Stent, Tubal Ligation Additional Past Surgical History / Comment(s): 2-5-18 heart cath w/ stent rca . other past sx:D&C, laser lt eye sx. Past Anesthesia/Blood Transfusion Reactions: Motion Sickness, Postoperative Nausea & Vomiting (PONV) Date of Last Stent Placement:: 06/14/2017 Past Psychological History: No Psychological Hx Reported Smoking Status: Never smoker Past Alcohol Use History: None Reported Past Drug Use History: None Reported - Past Family History Mother Family Medical History: CVA/TIA Father Family Medical History: Cancer Additional Family Medical History / Comment(s): LIP Medications and Allergies Home Medications Medication Instructions Recorded Confirmed Type Rivaroxaban [Xarelto] 20 mg PO DAILY 10/01/22 10/01/22 History Allergies Allergy/AdvReac Type Severity Reaction Status Date / Time codeine AdvReac Nausea & Verified 10/01/22 11:29 Vomiting EYE DROPS WITH PRESERVATIVE/ Allergy Unknown Uncoded 10/29/21 16:03 SULPA Physical Exam Vitals: Vital Signs Temp Pulse Resp BP Pulse Ox 10/01/22 13:27 98.0 F 75 16 152/83 10/01/22 13:00 73 158/90 10/01/22 12:30 77 16 148/77 95 10/01/22 12:15 78 18 162/75 95 10/01/22 12:00 79 18 167/82 94 L 10/01/22 11:30 159/92 10/01/22 11:15 75 18 162/89 96 10/01/22 11:00 74 18 146/80 94 L 10/01/22 10:45 75 18 150/69 93 L 10/01/22 10:35 82 18 142/89 93 L 10/01/22 10:32 83 18 142/89 93 L 10/01/22 10:12 99.0 F 84 18 160/87 94 L Intake and Output 10/01/22 10/01/22 10/01/22 06:59 14:59 22:59 Other: Weight 58.967 kg In general patient is alert and oriented, able to communicate by writing on board in no apparent distress HEENT head normocephalic and atraumatic Neck is supple no JVD no goiter no lymphadenopathy no carotid bruit Chest examination is clear to auscultation no crackles no wheezing Cardiac exam reveals regular heart sounds S1 and S2 no gallops no murmurs Abdomen is soft nontender no organomegaly with normal bowel sounds Extremity exam reveals no edema no cyanosis or clubbing Neurological examination reveals complete expressive aphasia, and right facial drooping otherwise no focal deficit Results CBC & Chem 7: 10/01/22 10:56 10/01/22 10:56 Labs: Abnormal Lab Results - Last 24 Hours (Table) 05/10/01/22 10/01/22 Range/Units 10:56 10:56 10:56 Lymphocytes # 0.7 L (1.0-4.8) k/uL PT 12.3 H (9.0-12.0) sec INR 1.2 H (<1.2) APTT 31.6 H (22.0-30.0) sec Glucose 104 H (74-99) mg/dL Alkaline Phosphatase 154 H (38-126) U/L Assessment and Plan Plan: Expressive aphasia and right facial droop, likely related to acute ischemic stroke Underlying history of lung cancer Underlying history of breast cancer Previous history of DVT 3 weeks ago, maintained on Xarelto Underlying history of left pleural effusion History of atrial fibrillation At this time patient was seen and examined in the emergency room Home medications reviewed and reordered Neurology consultation was requested Pulmonary consultation was requested in regard to pleural effusion Cardiology consultation was requested to rule out embolic event Echocardiogram was ordered Will follow closely
[2022-10-01] MEDS: carvediloL 3.125 MG TAB PO SCH (20:35)
[2022-10-01] MEDS: ATORVASTATIN 40 MG TAB PO SCH (20:36)
[2022-10-01] MEDS: HEPARIN SODIUM,PORCINE/PF 5,000 UNIT/0.5 ML SYRINGE SQ SCH (20:38)
--- NOTE | 2022-10-01 21:33 | EEG ---
ELECTROENCEPHALOGRAM REPORT CLINICAL HISTORY: This is a 72-year-old woman with altered mental status. The video EEG is obtained to evaluate for seizure epileptiform activity. RELEVANT MEDICATION: The patient is not on any antiseizure medication. EEG TYPE: A routine 21-channel EEG is performed with video using the 10/20 electrode placement system. DESCRIPTION: Wakefulness is only obtained. During awake state, the posterior-dominant rhythm consists of [id number] voltage of 8.5 to 9 hertz activity that is well modulated and well sustained. There is no physiological sleep architecture. There is no focal slowing. Interictal and ictal is none. ACTIVATION PROCEDURE: Photic stimulation did not evoke a posterior driving response. There is no abnormality during the photic stimulation. Hyperventilation is not performed. CLINICAL INTERPRETATION: This is a normal routine EEG. There is no focal slowing, epileptiform discharge, or seizure on the EEG. A normal routine EEG does not rule out underlying epilepsy. Clinical correlation is recommended. MMROMAIN / MARYCRUZ: [id number] /
[2022-10-02] MEDS: carvediloL 3.125 MG TAB PO SCH ×2 (06:32→16:34)
[2022-10-02] MEDS ORDERED: RIVAROXABAN 20 MG TAB PO SCH (09:00)
[2022-10-02] MEDS: OSIMERTINIB 80 MG PO SCH (09:10)
--- NOTE | 2022-10-02 09:54 | P.PN ---
Subjective Progress Note Date: 10/02/22 Kat Kim, is a 72-year-old female who presented to [facility] emergency room with a chief complaint difficulty with her speech, and right facial drooping, patient presented to emergency room with similar complaints yesterday, at that time she was offered MRI and admission by [facility] physician however she felt that she was improving and she opted to go home. However over the next several hours patient developed complete aphasia, she was brought back to the emergency room by her family. She was evaluated in the emergency room vital examination on presentation revealed a temperature of 99 pulse 84 respiration 18 blood pressure 160/87 pulse ox 94% on room air Laboratory data revealed a white blood count of 7.1 hemoglobin 14.6 platelet count 167 sodium 137 potassium 4.3 chloride 102 CO2 29 BUN 9 creatinine 0.56 urine analysis revealed no evidence of infection and urine toxicology screen was negative Testing in the emergency room revealed, computed tomography scan of the brain without contrast was done in the emergency room and revealed no acute intracranial process, CT angiogram of the brain done in the emergency room revealed no evidence of dissection of the cervical internal carotid arteries or vertebral arteries or any evidence of significant stenosis at the carotid bifurcation there was no evidence of intracranial high-grade stenosis or intracranial aneurysm Patient was admitted to medical floor for further evaluation and treatment, neurology consultation was requested Past medical history is significant for history of breast cancer, history of stacey ng cancer, history of atrial fibrillation, history of lower extremity DVT, patient was maintained on Xarelto At home On 10/02/2022. Patient is currently resting in room remains with difficulty in speech and right facial drooping. MRI of the brain was completed showing scattered foci of restricted diffusion compatible with acute or subacute CVA given multiple vascular distributions correlate for emboli phenomenon. Neurology services are following. Cardiology services also consulted. Current vital signs temp 90.1, heart rate 74, blood pressure 129/67 pulse ox of 94% on room air Objective - Vital Signs Vital signs: Vital Signs Temp 98.1 F 10/02/22 08:00 Pulse 74 10/02/22 08:00 Resp 18 10/02/22 08:00 BP 129/67 10/02/22 08:00 Pulse Ox 93 L 10/02/22 08:05 FiO2 Intake & Output 10/01/22 10/02/22 10/02/22 18:59 06:59 18:59 Intake Total 240 Balance 240 Weight 58.967 kg Intake: Oral 240 Other: Voiding Method Toilet # Voids 1 - Exam In general patient is alert and oriented, able to communicate by writing on b oard in no apparent distress HEENT head normocephalic and atraumatic Neck is supple no JVD no goiter no lymphadenopathy no carotid bruit Chest examination is clear to auscultation no crackles no wheezing Cardiac exam reveals regular heart sounds S1 and S2 no gallops no murmurs Abdomen is soft nontender no organomegaly with normal bowel sounds Extremity exam reveals no edema no cyanosis or clubbing Neurological examination reveals complete expressive aphasia, and right facial drooping otherwise no focal deficit - Labs CBC & Chem 7: 10/01/22 10:56 10/01/22 10:56 Labs: Abnormal Lab Results - Last 24 Hours (Table) 10/01/22 10/01/22 10/01/22 Range/Units 10:56 10:56 10:56 Lymphocytes # 0.7 L (1.0-4.8) k/uL PT 12.3 H (9.0-12.0) sec INR 1.2 H (<1.2) APTT 31.6 H (22.0-30.0) sec Glucose 104 H (74-99) mg/dL Alkaline Phosphatase 154 H (38-126) U/L Assessment and Plan Plan: Expressive aphasia and right facial droop, likely related to acute ischemic stroke Underlying history of lung cancer Underlying history of breast cancer Previous history of DVT 3 weeks ago, maintained on Xarelto Underlying history of left pleural effusion History of atrial fibrillation At this time patient was seen and examined in the emergency room Home medications reviewed and reordered Neurology consultation was requested Pulmonary consultation was requested in regard to pleural effusion Cardiology consultation was requested to rule out embolic event Echocardiogram was ordered Will follow closely
[2022-10-02 10:29] LABS: Chol/HDL Ratio 3.44 Ratio; LDL Cholesterol,Calculated 128.8 mg/dL (0.0-131.0); VLDL Calculation 15.88 mg/dL (5.00-40.00)
--- NOTE | 2022-10-02 11:36 | CA ---
Transthoracic Echo Report Name: Kat Kim Age: 72 Gender: F : 1950 Exam Date: 10/02/2022 08:27 Exam Location: [facility] Ht (in): 62 Wt (lb): 130 Ordering Physician: Amadou Dye MD Attending/Referring Phys: Director Of Manufacturing Operations Amarilis Maldonado RDCS Procedure CPT: Indications: stroke. with Bubble study Cardiac Hx: Poor acustic windows Technical Quality: Technically difficult study Contrast 1: Lumason Total Dose (mL): 3 Contrast 2: Total Dose (mL): MEASUREMENTS (Male / Female) Normal Values 2D ECHO LV Diastolic Diameter PLAX 3.2 cm 4.2 - 5.9 / 3.9 - 5.3 cm LV Systolic Diameter PLAX 2.2 cm IVS Diastolic Thickness 1.1 cm 0.6 - 1.0 / 0.6 - 0.9 cm LVPW Diastolic Thickness 1.1 cm 0.6 - 1.0 / 0.6 - 0.9 cm LV Relative Wall Thickness 0.7 RV Internal Dim ED PLAX 2.7 cm LA Systolic Diameter LX 2.6 cm 3.0 - 4.0 / 2.7 - 3.8 cm LA Volume 52.8 cm??? 18 - 58 / 22 - 52 cm??? M-MODE Aortic Root Diameter MM 3.2 cm MV E Point Septal Separation 0.2 cm AV Cusp Separation MM 2.1 cm DOPPLER AV Peak Velocity 103.4 cm/s AV Peak Gradient 4.3 mmHg MV Area PHT 4.0 cm??? Mitral E Point Velocity 97.1 cm/s Mitral A Point Velocity 90.1 cm/s Mitral E to A Ratio 1.1 MV Deceleration Time 190.4 ms MV E' Velocity 5.0 cm/s Mitral E to MV E' Ratio 19.4 TR Peak Velocity 254.1 cm/s TR Peak Gradient 25.8 mmHg Right Ventricular Systolic Press 29.4 mmHg FINDINGS Left Ventricle Left ventricular ejection fraction is estimated at 45-50 %. Small left ventricular cavity. Mildly increased septal wall thickness. Mildly increased posterior wall thickness. Basel inferior hypokinesis Right Ventricle Normal right ventricular size and function. Right ventricular systolic pressure within normal limits. Right Atrium Normal right atrial size. Left Atrium Normal left atrial size. No evidence for an atrial septal defect. Mitral Valve Mitral valve thickened. Mild mitral annular calcification. No mitral stenosis, regurgitation or prolapse. Aortic Valve Trileaflet aortic valve. No aortic valve stenosis or regurgitation. Aortic valve sclerosis. Tricuspid Valve Structurally normal tricuspid valve. Mild tricuspid regurgitation. Pulmonic Valve Structurally normal pulmonic valve. No pulmonic regurgitation. Pericardium Normal pericardium. No pericardial effusion. Aorta Normal size aortic root and proximal ascending aorta. CONCLUSIONS Taking into for the study was suboptimal acoustic windows Contrast echo study performed Borderline normal LV systolic function, septal bulge Inferior septal and inferior basal hypokinesis Previewed by: Dr. Manuel Perez MD (Electronically Signed) Final Date: 02 Oct 2022 11:35
[2022-10-02] MEDS: HEPARIN SODIUM,PORCINE/PF 5,000 UNIT/0.5 ML SYRINGE SQ SCH ×2 (11:43→21:24)
[2022-10-02] MEDS: ASPIRIN 81 MG PO SCH (11:43)
[2022-10-02] MEDS: ANASTROZOLE 1 MG TAB PO SCH (11:43)
--- NOTE | 2022-10-02 11:54 | P.CNPUL ---
History of Present Illness Consult date: 10/02/22 Requesting physician: Tejinder Taylor Reason for consult: pleural effusion, abnormal CXR/CT, other Chief complaint: Neurologic symptoms. History of present illness: Pulmonary/critical care consult dated 10/02/2022. 72-year-old female with a history of breast cancer, presents to the emergency department on October 01, complaining of strokelike symptoms. The patient apparently had a slight right-sided facial droop, and was unable to speak. The patient was admitted to the hospital, and we are asked to see her for her chronic left-sided effusion. The patient has had a thoracentesis in the past, w paul I believe was done at [facility]. Currently, the patient's on room air, and not receiving any IV fluids. The speech pathologist was in room with her. We saw her in 378. Her medical history includes rest cancer, hypertension, myocardial infarction, osteoarthritis, and apparently the patient is a lifelong nonsmoker. She has had a catheterization with stent placement in her right coronary artery. She appears in no distress. CBC is completely normal. PT 12.3 with an INR 1.2. PTT is 31.6. Electrolytes are normal including sodium, potassium, chloride, carbon dioxide, anion gap, BUN, and creatinine. Glucose 104. The rest of the comprehensive metabolic profile is essentially normal. Urine is negative. Drug screen was negative. Chest x-ray shows a moderate left-sided effusion, and a small right-sided effusion. Brain CT was negative. Angiography, CT, showed no evidence of high-grade stenosis. Brain MRI showed scattered foci of restricted diffusion compatible with acute subacute LINDA. There were multiple vascular distributions. No evidence for mass. Review of Systems REVIEW OF SYSTEMS: CONSTITUTIONAL: [Negative.] NEUROLOGIC: Facial droop, and inability to speak. HEENT: [ Negative.] CARDIAC: [Negative.] PULMONARY: [Negative.] GI: [Negative.] : [Negative.] RHEUMATOLOGIC: [ Negative.] IMMUNOLOGIC: [ Negative.] ENDOCRINE: [Negative. ] DERMATOLOGIC: [Negative.] Past Medical History Past Medical History: Cancer, Hypertension, Myocardial Infarction ([place]), Osteoarthritis ([place]) Additional Past Medical History / Comment(s): 2-5-18 stemi, Breast CA, lung nodule/CA Last Myocardial Infarction Date:: 06/14/2017 History of Any Multi-Drug Resistant Organisms: None Reported Past Surgical History: Heart Catheterization With Stent, Tubal Ligation Additional Past Surgical History / Comment(s): 2-18 heart cath w/ stent rca . other past sx:D&C, laser lt eye sx. Past Anesthesia/Blood Transfusion Reactions: Motion Sickness, Postoperative Nausea & Vomiting (PONV) Date of Last Stent Placement:: 06/14/2017 Past Psychological History: No Psychological Hx Reported Smoking Status: Never smoker Past Alcohol Use History: None Reported Past Drug Use History: None Reported - Past Family History Mother Family Medical History: CVA/TIA Father Family Medical History: Cancer Additional Family Medical History / Comment(s): LIP Medications and Allergies Home Medications Medication Instructions Recorded Confirmed Type Anastrozole [Arimidex] 1 mg PO DAILY 10/01/22 10/01/22 History Osimertinib Mesylate [Tagrisso] 80 mg PO DAILY 10/01/22 10/01/22 History Rivaroxaban [Xarelto] 20 mg PO DAILY 10/01/22 10/01/22 History carvediloL [Coreg] 3.125 mg PO BID 10/01/22 10/01/22 History Allergies Allergy/AdvReac Type Severity Reaction Status Date / Time codeine AdvReac Nausea & Verified 10/01/22 11:29 Vomiting EYE DROPS WITH PRESERVATIVE/ Allergy Unknown Uncoded 10/29/21 16:03 SULPA Physical Exam Osteopathic Statement: *. No significant issues noted on an osteopathic structural exam other than those noted in the History and Physical/Consult. Vitals: Vital Signs Temp Pulse Pulse Resp BP BP Pulse Ox 10/02/22 08:05 93 L 10/02/22 08:00 98.1 F 74 18 129/67 94 L 10/02/22 03:05 80 18 133/70 93 L 10/02/22 01:29 76 18 10/02/22 00:00 98.3 F 76 18 134/72 92 L 10/01/22 22:00 74 18 129/70 96 10/01/22 21:50 77 16 129/70 95 10/01/22 21:40 75 26 H 129/70 95 10/01/22 21:30 83 33 H 129/70 94 L 10/01/22 21:20 101 H 27 H 129/70 10/01/22 21:10 75 18 129/70 96 10/01/22 21:00 79 16 150/81 96 10/01/22 20:50 81 19 150/81 96 10/01/22 18:03 75 18 141/85 95 10/01/22 16:20 71 18 147/71 92 L 10/01/22 13:27 98.0 F 75 16 152/83 10/01/22 13:00 73 158/90 10/01/22 12:30 77 16 148/77 95 10/01/22 12:15 78 18 162/75 95 10/01/22 12:00 79 18 167/82 94 L Intake and Output 10/01/22 10/02/22 10/02/22 22:59 06:59 14:59 Intake Total 240 Balance 240 Intake: Oral 240 Other: Voiding Method Toilet # Voids 1 Weight 58.967 kg No acute distress, oriented 3. Currently not on any supplemental oxygen. No obvious respiratory distress. HEENT examination is grossly unremarkable. Mucous membranes are moist. No oral lesions. The patient has an obvious right facial droop. Neck supple. Full range of motion. No adenopathy thyromegaly or neck vein distention. Cardiovascular examination reveals regular rhythm rate. S1-S2 normal. No S3 or S4. No discernible murmur noted. Heart rate 74 bpm. Lungs reveal clear breath sounds. Breath sounds are equal bilaterally. No adventitious lung sounds including wheezes rhonchi or crackles. Room air saturation is 94%. Abdomen soft bowel sounds are heard. No masses or tenderness. Extremities are intact. No cyanosis clubbing or edema. Skin is without rash or lesion. Neurologic examination reveals a right facial droop. Also, the patient is not able to speak. Results - Laboratory Findings CBC and BMP: 10/01/22 10:56 10/01/22 10:56 PT/INR, D-dimer PT 12.3 sec (9.0-12.0) H 10/01/22 10:56 INR 1.2 (<1.2) H 10/01/22 10:56 Abnormal lab findings: Abnormal Labs 10/01/22 10/01/22 10/01/22 10:56 10:56 10:56 Lymphocytes # 0.7 L PT 12.3 H INR 1.2 H APTT 31.6 H Glucose 104 H Alkaline Phosphatase 154 H Cholesterol 05/25/23 10:56 Lymphocytes # PT INR APTT Glucose Alkaline Phosphatase Cholesterol 204.00 H - Diagnostic Findings Chest x-ray: image reviewed Assessment and Plan Assessment: Acute/subacute CVA, with aphasia, and right facial droop. History of breast cancer, and chronic left-sided pleural effusion. History of hypertension. History of CAD, with previous stent placement, right coronary artery. History of myocardial infarction. History of osteoarthritis. Lifelong nontobacco user. Plan: Plan dated 10/02/2022. The patient was admitted for neurologic complaints, including right facial droop, and aphasia. The patient will be seen by neurology. She does have a chronic left-sided effusion, and has undergone thoracentesis in the past. I believe the last time we saw her, she had thoracentesis performed that [facility]. I believe I saw her about one year ago in October 2021 recently my consultation from that evaluation. We will continue to follow make recommendations. Time with Patient: Greater than 30
--- NOTE | 2022-10-02 11:57 | P.CRDCN ---
History of Present Illness Consult date: 10/02/22 Reason for Consult (text): cva History of present illness: History of present illness: This is a 72 year old female patient of Dr. Vincent with past medical history of coronary artery disease with prior stenting of the RCA in 2018, hypertension, dyslipidemia, history of smoking, breast cancer, lung cancer both under the care of oncology, recurrent pleural effusions, history of DVT 3 weeks ago in the left lower extremity started on Xarelto. We have been asked to evaluate the patient regarding stroke. Patient presented to the hospital due to right-sided facial weakness and speech difficulty. We have been asked to evaluate the patient for embolic stroke. Patient continues to have right-sided facial weakness and expressive aphasia at the time of this evaluation. She denies having chest pain. Patient initially presented to the emergency center on 09/30 due to abnormal speech that lasted approximately one hour and resolved. Patient was discharged home and returned on the morning of 10/01 with inability to speak. Her initial blood pressure 160/87, heart rate in the 80s. It was determined patient was not a candidate for TPA and she was admitted to the cardiac stepdown unit. Patient has been seen by neurology EKG sinus rhythm with no acute ST changes Chest x-ray: Correlate to exclude CHF pulmonary vascular congestion. Moderate left and small right pleural effusions pneumonia not excluded. CAT scan of the brain showed no acute intracranial process. CT angiogram revealed no evidence of dissection of the cervical internal carotid arteries or vertebral arteries or any evidence of stenosis at the carotid bifurcations. No intracranial high-grade stenosis or intracranial aneurysm. Intracranial atherosclerosis of the internal carotid arteries without hemodynamically significant stenosis. Right and increased size of left pleural effusions. Left could represent empyema. Persistent scattered nodular opacities represent metastatic disease. MRI of the brain revealed scattered foci of restricted diffusion compatible with acute/subacute CVA. Multiple vascular distributions correlate for embolic phenomenon. No abnormal postcontrast enhancement no evidence of mass. Nonspecific white matter changes likely chronic small vessel ischemic disease. EEG normal CBC unremarkable. INR 1.2. Electrolytes, renal function, liver function tests all within normal limits. Troponin negative 2. Cholesterol 204, LDL 128, HDL 59. Urine drug screen was negative. Urinalysis negative.. Echocardiogram reveals suboptimal acoustic windows. Borderline normal LV systolic function, septal bulge, inferior septal and inferior basal hypokinesis. Home cardiac medications: Coreg 3.125 mg twice daily, Xarelto 20 mg daily Review Of Systems: At the time of my evaluation: Constitutional: No fever, no chills. EENT: No headache. No dizziness. Lungs: No shortness of breath, cough, no sputum production. No wheezing. Cardiovascular: No chest pain, no lower extremity edema. No lightheadedness or dizziness. No syncopal episodes. Abdominal: No abdominal pain. No nausea, vomiting. No diarrhea. Neurologic: Noted aphasia. Noted facial droop. Physical examination: Gen: This is a 72-year-old female. She is resting in a recliner and appears to be in no acute distress VS: reviewed HEENT: Head is atraumatic, normocephalic. Pupils equal, round. Sclerae is anicteric. NECK: Supple. No JVD. . LUNGS: Clear to auscultation. No wheezes or rhonchi. No intercostal retractions. HEART: Regular rate and rhythm. Systolic murmur. ABDOMEN: Soft No tenderness. EXTREMITIES: No pedal edema. No calf tenderness. NEUROLOGICAL: Patient is awake, alert and oriented x3. Assessment: Acute or subacute embolic CVA Recent history of DVT on Xarelto Coronary artery disease with prior stenting of the RCA Hypertension Hyperlipidemia History of tobacco use History of breast cancer and lung cancer History of recurrent pleural effusions Plan: Continue patient's cardiac medications Further recommendations to follow based upon clinical course Thank you kindly for this consultation. Nurse practitioner note has been reviewed, I agree with documented findings and plan of care. Patient was seen and examined. Past Medical History Past Medical History: Cancer, Hypertension, Myocardial Infarction ([place]), Osteoarthritis (OA) Additional Past Medical History / Comment(s): 2-5-18 stemi, Breast CA, lung nodule/CA Last Myocardial Infarction Date:: 06/14/2017 History of Any Multi-Drug Resistant Organisms: None Reported Past Surgical History: Heart Catheterization With Stent, Tubal Ligation Additional Past Surgical History / Comment(s): 2-5-18 heart cath w/ stent rca . other past sx:D&C, laser lt eye sx. Past Anesthesia/Blood Transfusion Reactions: Motion Sickness, Postoperative Nausea & Vomiting (PONV) Date of Last Stent Placement:: 06/14/2017 Past Psychological History: No Psychological Hx Reported Smoking Status: Never smoker Past Alcohol Use History: None Reported Past Drug Use History: None Reported - Past Family History Mother Family Medical History: CVA/TIA Father Family Medical History: Cancer Additional Family Medical History / Comment(s): LIP Medications and Allergies Home Medications Medication Instructions Recorded Confirmed Type Anastrozole [Arimidex] 1 mg PO DAILY 10/01/22 10/01/22 History Osimertinib Mesylate [Tagrisso] 80 mg PO DAILY 10/01/22 10/01/22 History Rivaroxaban [Xarelto] 20 mg PO DAILY 10/01/22 10/01/22 History carvediloL [Coreg] 3.125 mg PO BID 10/01/22 10/01/22 History Allergies Allergy/AdvReac Type Severity Reaction Status Date / Time codeine AdvReac Nausea & Verified 10/01/22 11:29 Vomiting EYE DROPS WITH PRESERVATIVE/ Allergy Unknown Uncoded 10/29/21 16:03 SULPA Physical Exam Vitals: Vital Signs Temp Pulse Pulse Resp BP BP Pulse Ox 10/02/22 08:05 93 L 10/02/22 03:05 80 18 133/70 93 L 10/02/22 01:29 76 18 10/02/22 00:00 98.3 F 76 18 134/72 92 L 10/01/22 22:00 74 18 129/70 96 10/01/22 21:50 77 16 129/70 95 10/01/22 21:40 75 26 H 129/70 95 10/01/22 21:30 83 33 H 129/70 94 L 10/01/22 21:20 101 H 27 H 129/70 10/01/22 21:10 75 18 129/70 96 10/01/22 21:00 79 16 150/81 96 10/01/22 20:50 81 19 150/81 96 10/01/22 18:03 75 18 141/85 95 10/01/22 16:20 71 18 147/71 92 L 10/01/22 13:27 98.0 F 75 16 152/83 10/01/22 13:00 73 158/90 10/01/22 12:30 77 16 148/77 95 10/01/22 12:15 78 18 162/75 95 10/01/22 12:00 79 18 167/82 94 L 10/01/22 11:30 159/92 10/01/22 11:15 75 18 162/89 96 10/01/22 11:00 74 18 146/80 94 L 10/01/22 10:45 75 18 150/69 93 L 10/01/22 10:35 82 18 142/89 93 L 10/01/22 10:32 83 18 142/89 93 L 10/01/22 10:12 99.0 F 84 18 160/87 94 L Intake and Output 10/01/22 10/02/22 10/02/22 22:59 06:59 14:59 Intake Total 240 Balance 240 Intake: Oral 240 Other: Voiding Method Toilet # Voids 1 Weight 58.967 kg Results 10/01/22 10:56 10/01/22 10:56 Cardiac Enzymes 10/01/22 10/01/22 Range/Units 10:56 10:56 AST 21 (14-36) U/L Troponin I <0.012 (0.000-0.034) ng/mL Coagulation 10/01/22 Range/Units 10:56 PT 12.3 H (9.0-12.0) sec APTT 31.6 H (22.0-30.0) sec CBC 10/01/22 Range/Units 10:56 WBC 7.1 (3.8-10.6) k/uL RBC 4.89 (3.80-5.40) m/uL Hgb 14.6 (11.4-16.0) gm/dL Hct 43.9 (34.0-46.0) % Plt Count 167 (150-450) k/uL Comprehensive Metabolic Panel 10/01/22 Range/Units 10:56 Sodium 137 (137-145) mmol/L Potassium 4.3 (3.5-5.1) mmol/L Chloride 102 (98-107) mmol/L Carbon Dioxide 29 (22-30) mmol/L BUN 9 (7-17) mg/dL Creatinine 0.56 (0.52-1.04) mg/dL Glucose 104 H (74-99) mg/dL Calcium 9.2 (8.4-10.2) mg/dL AST 21 (14-36) U/L ALT 12 (4-34) U/L Alkaline Phosphatase 154 H (38-126) U/L Total Protein 6.8 (6.3-8.2) g/dL Albumin 3.8 (3.5-5.0) g/dL Current Medications Generic Name Dose Route Start Last Admin Trade Name Felipeq PRN Reason Stop Dose Admin Anastrozole 1 mg 10/02/22 09:00 Anastrozole 1 Mg Tab PO DAILY NEIDA Aspirin 81 mg 10/02/22 09:00 Aspirin 81 Mg PO DAILY NEIDA Atorvastatin Calcium 40 mg 10/01/22 21:00 10/01/22 20:36 Atorvastatin 40 Mg Tab PO 40 mg HS NEIDA Administration Carvedilol 3.125 mg 10/01/22 21:00 10/02/22 06:32 Carvedilol 3.125 Mg Tab PO 3.125 mg AC-BID NEIDA Administration Heparin Sodium (Porcine) 5,000 unit 10/01/22 21:00 10/01/22 20:38 Heparin Sodium,Porcine/Pf 5,000 Unit/0.5 Ml Syringe SQ Not Given Q12HR NEIDA Osimertinib ( 1 each 10/02/22 09:00 Tagrisso) 80 Mg PO DAILY NEIDA Intake and Output 10/01/22 10/02/22 10/02/22 22:59 06:59 14:59 Intake Total 240 Balance 240 Intake: Oral 240 Other: Voiding Method Toilet # Voids 1 Weight 58.967 kg 10/01/22 10:56 10/01/22 10:56
[2022-10-02 12:57] LABS: Basophils % (A) 0 %; Eosinophils % (A) 0 %; HCT 44.2 % (34.0-46.0); HGB 14.6 gm/dL (11.4-16.0); Lymphocytes # (A) 1.2 k/uL (1.0-4.8); Lymphocytes % (A) 9 %; MCH 29.5 pg (25.0-35.0); MCV 89.2 fL (80.0-100.0); Mean Platelet Volume 8.5; Monocytes # (A) 0.9 k/uL (0-1.0); Monocytes % (A) 6 %; Neutrophils # (A) 12.1 k/uL (1.3-7.7); Neutrophils % (A) 84 %; Platelet Count 190 k/uL (150-450); RBC 4.95 m/uL (3.80-5.40); RDW 13.9 % (11.5-15.5); WBC 14.3 k/uL (3.8-10.6)
[2022-10-02 13:04] LABS: ALT 14 U/L (4-34); AST 21 U/L (14-36); African American GFR (CKD) >90 (>60 ml/min/1.73 sqM); Albumin 3.8 g/dL (3.5-5.0); Alkaline Phosphatase 160 U/L (38-126); Anion Gap 10 mmol/L; Blood Urea Nitrogen 17 mg/dL (7-17); Calcium 9.3 mg/dL (8.4-10.2); Carbon Dioxide 26 mmol/L (22-30); Chloride 103 mmol/L (98-107); Glucose 114 mg/dL (74-99); Non-African American GFR(CKD) 89 (>60 ml/min/1.73 sqM); Sodium 139 mmol/L (137-145); Total Bilirubin 0.4 mg/dL (0.2-1.3); Total Protein 6.8 g/dL (6.3-8.2)
--- NOTE | 2022-10-02 15:42 | FL ---
EXAMINATION TYPE: FL barium swallow w video DATE OF EXAM: 10/02/2022 CLINICAL HISTORY: 72-year-old female CVA, gurgly at the bedside, concern for aspiration, Dysphagia. TECHNIQUE: Deglutition study is performed utilizing thin liquid barium, barium thick applesauce, and barium crumbled cracker. Total fluoroscopy time: 2 minutes 13 seconds. Total images: None. Real-time fluoroscopy support was provided to speech pathology. DOSE AREA PRODUCT (DAP) UGY*M,MGY*CM: 104.56 COMPARISON: None. FINDINGS: Swallow initiation was mildly delayed with bolus free spilling to the level of the vallecula and piri form sinuses. Normal mastication is seen with solid modalities tested. There is no evidence of penetration or aspi ration with any modality tested. Mild vallecular residuals noted with crushed solids. IMPRESSION: Delayed swallowing initiation. Mild residuals with crushed solids. No penetration or aspiration. Please refer to speech therapist notes for further details if necessary.
--- NOTE | 2022-10-02 16:05 | P.PN ---
Subjective Progress Note Date: 09/29/22 I spoke with the speech therapist and she stated that the patient is a global aphasia today and seems that she has worsening of right facial weakness. She was sitting at in a reclining chair and did not appear any and distress but has a very hard time communicating. Objective - Vital Signs Vital signs: Vital Signs Temp 98.7 F 10/02/22 12:00 Pulse 73 10/02/22 12:00 Resp 18 10/02/22 12:00 BP 129/74 10/02/22 12:00 Pulse Ox 95 10/02/22 12:00 FiO2 Intake & Output 10/01/22 10/02/22 10/02/22 18:59 06:59 18:59 Intake Total 240 0 Balance 240 0 Weight 58.967 kg Intake: Oral 240 0 Other: Voiding Method Toilet # Voids 1 - Exam Neuro: Patient is awake alert. She has global aphasia. She'll follow simple commands by mimicking. Cranial nerve: Visual patel assessment is hard to assess because of her cooperation. Intraocular movement she's tracking throughout the room. Patient has right lower facial droop that's moderate in severity. Patient is mute Motor: The strength is listed in the left side without any difficulty but john peralta has weakness over the right upper extremity and it's about a 4 minus. Right lower extremity is less than the above gravity without any difficulty. Some of the workup during his hospital visit consisted of: Lipid panel triglycerides 79, cholesterol is 204, LDLs 128, HDL 59. CT head is reported as no acute intracranial process. I personally reviewed that a CT and there is no acute or subacute ischemia seen. There is no mass affect. CT angiography of the head and neck was reported as no evidence of dissection of the cervical internal carotid arteries or vertebral artery or any evidence of significant stenosis at the carotid bifurcation. No evidence of intracranial high-grade stenosis or intracranial aneurysm. Intracranial atherosclerosis of the internal carotid artery without hemodynamic stenosis. Right and increased size of left pleural effusion. There is a pleural sign in the left which could represent empyema. Persistent that scattered nodular opacity likely representing metastatic disease from the patient known malignancy. EKG is reported as sinus rhythm. Low QRS voltage URIne Drug screen is negative. MRI brain is reported as scattered foci of restricted diffusion compatible with acute/subacute CVA. Given multiple vascular distribution correlate for embolic phenomena. No abnormal postcontrast enhancement the, no evidence for mass. Nonspecific white matter changes likely secondary to chronic small vessel ischemic disease. I personally reviewed the MRI and I agree with the report. Patient has restriction diffusion over bilateral frontal left more than the right with right parietal occipital region The echo was reported as suboptimal acoustic windows. Contrast echo study performed. Borderline normal left ventricle systolic function septal bulge. Th ere is septal and inferior basal hypokinesis. Routine EEG is normal. There is no focal slowing, epileptiform discharges or seizure on the EEG. - Labs CBC & Chem 7: 10/02/22 11:58 10/02/22 11:58 Labs: Abnormal Lab Results - Last 24 Hours (Table) 10/01/22 10/02/22 10/02/22 Range/Units 10:56 11:58 11:58 WBC 14.3 H (3.8-10.6) k/uL Neutrophils # 12.1 H (1.3-7.7) k/uL Glucose 114 H (74-99) mg/dL Alkaline Phosphatase 160 H (38-126) U/L Cholesterol 204.00 H (0.00-200.00) mg/dL Assessment and Plan Assessment: This is a 72-year-old woman who had the expressive aphasia and right facial weakness since 09/30/2022. Initially she presented to our facility yesterday and her symptoms has improved except some subtle right lower facial weakness but today as she presented again with expressive aphasia, dysarthria with right facial weakness Acute ischemic stroke (over bilateral hemisphere: bilateral frontal L>R, right parietal and occipital region). NIH stroke scale is a 6. Currently is global aphasic, mute, right facial weakness and right upper extremity weakness. Stroke appears embolic in nature: Possible cardioembolic. History of left lung cancer History of right breast cancer History of recent DVT about 3 weeks ago and is on Xarelto Left Pleural effusion on CTA History of pleural effusion History of atrial fibrillation and in past was on anticoagulation then stopped then after DVT 3 weeks ago restarted it Plan: Routine EEG is normal. Recommend to resume anticoagulation 2 days from now to avoid any hemorrhagic conversion. But if it's felt the benefit outweighed the risk then recommend heparin drip and no boluses and keep PTT at between 45 and 60 In addition to the aspirin 81 mg to I started during this ED I also start Plavix in the meantime as well 75 mg daily. Once anticoagulation is restarted then no need for one of the antiplatelet. Patient was on Xarelto and developed a stroke. Recommend to pursue transesophageal echocardiogram to rule out any left atrial thrombus or a large PFO to assess whether the exactly the source of the stroke. The patient had a recent DVT and I'll not sure if the clot traveled and embolized to the brain versus was a cardioembolic from the A. fib. Continue Lipitor 40 mg daily at bedtime second stroke prophylaxis Continue neuro checks Cardiac monitoring PT OT and TAXICAB COORDINATOR are consulted Cardiology is on board. I notified the MP regarding pursuing the transesop hageal echocardiogram. Pulmonary team is consulted for pleural effusion and history of lung cancer We'll defer the rest of the medical management to primary team For DVT prophylaxis I started the patient on subcu heparin 5000 units every 12 hours Plan discussed with her son was at bedside and her daughter via phone. As well discussed with her nurse. Time with Patient: Greater than 30
[2022-10-02] MEDS: CLOPIDOGREL 75 MG TAB PO SCH (16:34)
[2022-10-02] MEDS ORDERED: carvediloL 3.125 MG TAB PO SCH (21:00)
[2022-10-02] MEDS: ATORVASTATIN 40 MG TAB PO SCH (21:24)
[2022-10-03] MEDS: ASPIRIN 81 MG PO SCH (07:55)
[2022-10-03] MEDS: carvediloL 3.125 MG TAB PO SCH ×2 (07:55→16:48)
[2022-10-03] MEDS: CLOPIDOGREL 75 MG TAB PO SCH (07:55)
[2022-10-03] MEDS: HEPARIN SODIUM,PORCINE/PF 5,000 UNIT/0.5 ML SYRINGE SQ SCH ×2 (07:56→22:26)
[2022-10-03] MEDS: ANASTROZOLE 1 MG TAB PO SCH (07:56)
[2022-10-03] MEDS: OSIMERTINIB 80 MG PO SCH (08:13)
[2022-10-03 08:36] LABS: Basophils # (A) 0.1 k/uL (0-0.2); Basophils % (A) 1 %; Eosinophils # (A) 0.1 k/uL (0-0.7); Eosinophils % (A) 1 %; HGB 14.2 gm/dL (11.4-16.0); Lymphocytes # (A) 1.1 k/uL (1.0-4.8); Lymphocytes % (A) 11 %; MCH 30.2 pg (25.0-35.0); MCHC 32.9 g/dL (31.0-37.0); MCV 91.8 fL (80.0-100.0); Mean Platelet Volume 8.3; Monocytes # (A) 0.7 k/uL (0-1.0); Monocytes % (A) 7 %; Neutrophils # (A) 8.1 k/uL (1.3-7.7); Neutrophils % (A) 81 %; Platelet Count 193 k/uL (150-450); RBC 4.69 m/uL (3.80-5.40); RDW 13.8 % (11.5-15.5); WBC 10.1 k/uL (3.8-10.6)
[2022-10-03 08:52] LABS: ALT 12 U/L (4-34); AST 19 U/L (14-36); African American GFR (CKD) >90 (>60 ml/min/1.73 sqM); Albumin 3.6 g/dL (3.5-5.0); Alkaline Phosphatase 166 U/L (38-126); Anion Gap 8 mmol/L; Blood Urea Nitrogen 15 mg/dL (7-17); Calcium 9.1 mg/dL (8.4-10.2); Carbon Dioxide 27 mmol/L (22-30); Chloride 105 mmol/L (98-107); Glucose 104 mg/dL (74-99); Non-African American GFR(CKD) >90 (>60 ml/min/1.73 sqM); Potassium 3.8 mmol/L (3.5-5.1); Sodium 140 mmol/L (137-145); Total Bilirubin 0.5 mg/dL (0.2-1.3); Total Protein 6.5 g/dL (6.3-8.2)
[2022-10-03] MEDS: SODIUM CHLORIDE 0.9% 1,000 ML IV SCH (11:11)
--- NOTE | 2022-10-03 11:46 | P.PN ---
Subjective Progress Note Date: 10/03/22 Principal diagnosis: Pleural effusion, chronic. Pulmonary/critical care consult dated 10/02/2022. 72-year-old female with a history of breast cancer, presents to the emergency de partment on October 01, complaining of strokelike symptoms. The patient apparently had a slight right-sided facial droop, and was unable to speak. The patient was admitted to the hospital, and we are asked to see her for her chronic left-sided effusion. The patient has had a thoracentesis in the past, which I believe was done at [facility]. Currently, the patient's on room air, and not rece iving any IV fluids. The speech pathologist was in room with her. We saw her in 378. Her medical history includes rest cancer, hypertension, myocardial infarction, osteoarthritis, and apparently the patient is a lifelong nonsmoker. She has had a catheterization with stent placement in her right coronary artery. She appears in no distress. CBC is completely normal. PT 12.3 with an INR 1.2. PTT is 31.6. Electrolytes are normal including sodium, potassium, chloride, carbon dioxide, anion gap, BUN, and creatinine. Glucose 104. The rest of the comprehensive metabolic profile is essentially normal. Urine is negative. Drug screen was negative. Chest x-ray shows a moderate left-sided e ffusion, and a small right-sided effusion. Brain CT was negative. Angiography, CT, showed no evidence of high-grade stenosis. Brain MRI showed scattered foci of restricted diffusion compatible with acute subacute LINDA. There were multiple vascular distributions. No evidence for mass. Progress note dated 10/03/2022. 72-year-old female with history of breast cancer, and chronic left-sided pleural effusion. The patient was admitted with a diagnosis of stroke. She is currently seeing neurology. She stable from the pulmonary standpoint. She's on room air. She's not receiving any IV fluids. The patient has a right facial droop, and is aphasic. CBC today is normal. Sodium 140, potassium 3.8, chlorides 105, CO2 27, anion gap 8, BUN 15, and creatinine 0.56. Objective - Vital Signs Vital signs: Vital Signs Temp 97.9 F 10/03/22 11:11 Pulse 76 10/03/22 11:11 Resp 16 10/03/22 11:11 BP 136/74 10/03/22 11:11 Pulse Ox 93 L 10/03/22 11:11 FiO2 Intake & Output 10/02/22 10/03/22 10/03/22 18:59 06:59 18:59 Intake Total 0 0 Balance 0 0 Intake: Oral 0 0 Other: Voiding Method Toilet Toilet # Voids 1 - Exam No acute distress, oriented 3. Currently not on any supplemental oxygen. No obvious respiratory distress. HEENT examination is grossly unremarkable. Mucous membranes are moist. No oral lesions. The patient has an obvious right facial droop. Neck supple. Full range of motion. No adenopathy thyromegaly or neck vein distention. Cardiovascular examination reveals regular rhythm rate. S1-S2 normal. No S3 or S4. No discernible murmur noted. Heart rate 75 bpm. Lungs reveal clear breath sounds. Breath sounds are equal bilaterally. No adventitious lung sounds including wheezes rhonchi or crackles. Room air saturation is 93%. Abdomen soft bowel sounds are heard. No masses or tenderness. Extremities are intact. No cyanosis clubbing or edema. Skin is without rash or lesion. Neurologic examination reveals a right facial droop. Also, the patient is not able to speak. - Labs CBC & Chem 7: 10/03/22 08:02 10/03/22 08:02 Labs: Abnormal Lab Results - Last 24 Hours (Table) 10/02/22 10/02/22 10/03/22 Range/Units 11:58 11:58 08:02 WBC 14.3 H (3.8-10.6) k/uL Neutrophils # 12.1 H 8.1 H (1.3-7.7) k/uL Glucose 114 H (74-99) mg/dL Alkaline Phosphatase 160 H (38-126) U/L 10/03/22 Range/Units 08:02 WBC (3.8-10.6) k/uL Neutrophils # (1.3-7.7) k/uL Glucose 104 H (74-99) mg/dL Alkaline Phosphatase 166 H (38-126) U/L Assessment and Plan Assessment: Acute/subacute CVA, with aphasia, and right facial droop. History of breast cancer, and chronic left-sided pleural effusion. History of hypertension. History of CAD, with previous stent placement, right coronary artery. History of myocardial infarction. History of osteoarthritis. Lifelong nontobacco user. Plan: Plan dated 10/02/2022. The patient was admitted for neurologic complaints, including right facial droop, and aphasia. The patient will be seen by neurology. She does have a chronic left-sided effusion, and has undergone thoracentesis in the past. I believe the last time we saw her, she had thoracentesis performed that [facility]. I believe I saw her about one year ago in October 2021 recently my consultation from that evaluation. We will continue to follow make recommendations. Plan dated 10/03/2022. The patient is stable from the pulmonary standpoint. She's on room air. She is a chronic left-sided pleural effusion, which had been previously drained at [facility]. Patient is currently being evaluated by neurology for her stroke symptoms. Prognosis is guarded. The patient has a right facial droop, and is unable to speak. Labs, x-rays, and medications are all reviewed. Time with Patient: Less than 30
--- NOTE | 2022-10-03 11:53 | P.PN ---
Subjective Progress Note Date: 10/03/22 Kat Kim, is a 72-year-old female who presented to [facility] emergency room with a chief complaint difficulty with her speech, and right facial drooping, patient presented to emergency room with similar complaints yesterday, at that time she was offered MRI and admission by [facility] room physician however she felt that she was improving and she opted to go home. However over the next several hours patient developed complete aphasia, she was brought back to the emergency room by her family. She was evaluated in the emergency room vital examination on presentation revealed a temperature of 99 pulse 84 respiration 18 blood pressure 160/87 pulse ox 94% on room air Laboratory data revealed a white blood count of 7.1 hemoglobin 14.6 platelet count 167 sodium 137 potassium 4.3 chloride 102 CO2 29 BUN 9 creatinine 0.56 urine analysis revealed no evidence of infection and urine toxicology screen was negative Testing in the emergency room revealed, computed tomography scan of the brain without contrast was done in the emergency room and revealed no acute intracranial process, CT angiogram of the brain done in the emergency room revealed no evidence of dissection of the cervical internal carotid arteries or vertebral arteries or any evidence of significant stenosis at the carotid bifurcation there was no evidence of intracranial high-grade stenosis or intracranial aneurysm Patient was admitted to medical floor for further evaluation and treatment, neurology consultation was requested Past medical history is significant for history of breast cancer, history of stacey ng cancer, history of atrial fibrillation, history of lower extremity DVT, patient was maintained on Xarelto At home On 10/02/2022. Patient is currently resting in room remains with difficulty in speech and right facial drooping. MRI of the brain was completed showing scattered foci of restricted diffusion compatible with acute or subacute CVA given multiple vascular distributions correlate for emboli phenomenon. Neurology services are following. Cardiology services also consulted. Current vital signs temp 98.1, heart rate 74, blood pressure 129/67 pulse ox of 94% on room air On 10/03/2022, patient was seen and examined on telemetry, case was discussed in details with Dr. Amadou López neurologist, patient is developing more difficulty with swallowing, recommendation from neurology is to proceed with JESUS, to rule out cardiac thrombus or PFO. However due to significant difficulty with swallowing, cardiology wanted to wait at this time on JESUS. Recommendation from neurology at this time is to proceed with upper and lower bilateral lower extremity Doppler to rule out acute DVT, and to start anticoagulation starting tomorrow. Objective - Vital Signs Vital signs: Vital Signs Temp 98.9 F 10/03/22 08:00 Pulse 81 10/03/22 08:00 Resp 17 10/03/22 08:00 BP 164/78 10/03/22 08:00 Pulse Ox 94 L 10/03/22 08:00 FiO2 Intake & Output 10/02/22 10/03/22 10/03/22 18:59 06:59 18:59 Intake Total 0 0 Balance 0 0 Intake: Oral 0 0 Other: Voiding Method Toilet Toilet # Voids 1 - Exam In general patient is alert and oriented, able to communicate by writing on board in no apparent distress HEENT head normocephalic and atraumatic Neck is supple no JVD no goiter no lymphadenopathy no carotid bruit Chest examination is clear to auscultation no crackles no wheezing Cardiac exam reveals regular heart sounds S1 and S2 no gallops no murmurs Abdomen is soft nontender no organomegaly with normal bowel sounds Extremity exam reveals no edema no cyanosis or clubbing Neurological examination reveals complete expressive aphasia, and right facial drooping otherwise no focal deficit - Labs CBC & Chem 7: 10/03/22 08:02 10/03/22 08:02 Labs: Abnormal Lab Results - Last 24 Hours (Table) 10/01/22 10/02/22 10/02/22 Range/Units 10:56 11:58 11:58 WBC 14.3 H (3.8-10.6) k/uL Neutrophils # 12.1 H (1.3-7.7) k/uL Glucose 114 H (74-99) mg/dL Alkaline Phosphatase 160 H (38-126) U/L Cholesterol 204.00 H (0.00-200.00) mg/dL 10/03/22 10/03/22 Range/Units 08:02 08:02 WBC (3.8-10.6) k/uL Neutrophils # 8.1 H (1.3-7.7) k/uL Glucose 104 H (74-99) mg/dL Alkaline Phosphatase 166 H (38-126) U/L Cholesterol (0.00-200.00) mg/dL Assessment and Plan Plan: Expressive aphasia and right facial droop, likely related to acute ischemic stroke Underlying history of lung cancer Underlying history of breast cancer Previous history of DVT 3 weeks ago, maintained on Xarelto Underlying history of left pleural effusion History of atrial fibrillation At this time patient was seen and examined in the emergency room Home medications reviewed and reordered Neurology consultation was requested Pulmonary consultation was requested in regard to pleural effusion Cardiology consultation was requested to rule out embolic event Echocardiogram was ordered Will follow closely
--- NOTE | 2022-10-03 12:08 | P.PN ---
Subjective Progress Note Date: 10/03/22 This is Drake Padron NP, I'm dictating on behalf of Dr. Perez's H&P and A&P. Patient was interviewed and examined. Patient is a pleasant 72-year-old female presented to the hospital with a CVA. Patient is currently nonverbal, however she is alert. She is unable to respond to any questions at this time. Per neurology anticoagulation is currently on hold so that there is no transition from occlusive the hemorrhagic stroke. Blood pressure has been somewhat elevated, but this is okay per neurology for perfusion purposes. GENERAL: Well-appearing, well-nourished and in no acute distress. NECK: Supple without JVD or thyromegaly. LUNGS: Breath sounds clear to auscultation bilaterally. Respiration equal and unlabored. No wheezes, rales or rhonchi. HEART: Regular rate and rhythm without murmurs, rubs or gallops. S1 and S2 heard. EXTREMITIES: Normal range of motion, no edema. No clubbing or cyanosis. Peripheral pulses intact and strong. VITALS: Temp 98.9, pulse 81, respirations 17, blood pressure 164/78, O2 saturation 94% on room air TELEMETRY: Normal sinus rhythm LABS: White count 10.1, hemoglobin 14.2, platelets 193, sodium 140, potassium 3.8, B1 15, creatinine 0.56, calcium 9.1, triglycerides 79.4, cholesterol 204, LDL 128, HDL 59.3 IMPRESSION: 1. Acute or subacute embolic CVA 2. Recent history of DVT on Xarelto 3. Coronary artery disease with prior stenting of the RCA 4. Hypertension 5. Hyperlipidemia 6. History of tobacco use 7. History of breast cancer lung cancer 8. History of recurrent pleural effusions PLAN: May start anticoagulation when appropriate. Recommend Pradaxa 150 mg twice a day, with Plavix. This is due to failure of Xarelto to prevent stroke. Should use anticoagulant of different mechanism. JESUS is not advised at this time, secondary to significant aspiration risk. Further recommendations based on patient's clinical course. Objective - Vital Signs Vital signs: Vital Signs Temp 97.9 F 10/03/22 11:11 Pulse 76 10/03/22 11:11 Resp 16 10/03/22 11:11 BP 136/74 10/03/22 11:11 Pulse Ox 93 L 10/03/22 11:11 FiO2 Intake & Output 10/02/22 10/03/22 10/03/22 18:59 06:59 18:59 Intake Total 0 0 Balance 0 0 Intake: Oral 0 0 Other: Voiding Method Toilet Toilet # Voids 1 - Labs CBC & Chem 7: 10/03/22 08:02 10/03/22 08:02 Labs: Abnormal Lab Results - Last 24 Hours (Table) 10/02/22 10/02/22 10/03/22 Range/Units 11:58 11:58 08:02 WBC 14.3 H (3.8-10.6) k/uL Neutrophils # 12.1 H 8.1 H (1.3-7.7) k/uL Glucose 114 H (74-99) mg/dL Alkaline Phosphatase 160 H (38-126) U/L 10/03/22 Range/Units 08:02 WBC (3.8-10.6) k/uL Neutrophils # (1.3-7.7) k/uL Glucose 104 H (74-99) mg/dL Alkaline Phosphatase 166 H (38-126) U/L
--- NOTE | 2022-10-03 14:16 | US ---
EXAMINATION TYPE: US venous doppler duplex LE BI DATE OF EXAM: 10/03/2022 1:55 PM COMPARISON: NONE CLINICAL INDICATION: Female, 72 years old with history of embolic stroke, rule out DVT; stroke hx of dvt lt leg. Swelling. SIDE PERFORMED: Bilateral TECHNIQUE: The lower extremity deep venous system is examined utilizing real time linear array sonog tabby with graded compression, doppler sonography and color-flow sonography. VESSELS IMAGED: Common Femoral Vein Deep Femoral Vein Greater Saphenous Vein * Femoral Vein Popliteal Vein Small Saphenous Vein * Proximal Calf Veins (* superficial vessels) Right Leg: Negative for DVT Left Leg: Negative for DVT Grayscale, color doppler, spectral doppler imaging performed of the deep veins of the bilateral lower extremities. There is normal flow, compressibility, vascular waveforms. IMPRESSION: No ultrasound evidence for acute DVT in either lower extremity.
--- NOTE | 2022-10-03 14:17 | US ---
EXAMINATION TYPE: US venous doppler duplex UE DATE OF EXAM: 10/03/2022 COMPARISON: NONE CLINICAL INDICATION: Female, 72 years old with history of embolic stroke, rule out DVT; stroke upper arm swelling. SIDE PERFORMED: bilateral Right Arm: Negative for DVT Left Arm: Negative for DVT Grayscale, color doppler, spectral doppler imaging performed of the deep veins of the bilateral upper extremities. There is normal flow, compressibility and vascular waveforms. IMPRESSION: No ultrasound evidence for acute deep or superficial venous thrombosis in either upper ex tremity.
--- NOTE | 2022-10-03 15:57 | P.PN ---
Subjective Progress Note Date: 10/03/22 The patient seen at bedside and per the patient nurse she is about the same not verbalizing. Per nurse cardiology team met stated that it's unstable for her to have the JESUS since not swallowing. Objective - Vital Signs Vital signs: Vital Signs Temp 97.9 F 10/03/22 11:11 Pulse 76 10/03/22 11:11 Resp 16 10/03/22 11:11 BP 136/74 10/03/22 11:11 Pulse Ox 93 L 10/03/22 11:11 FiO2 Intake & Output 10/02/22 10/03/22 10/03/22 18:59 06:59 18:59 Intake Total 0 0 Balance 0 0 Intake: Oral 0 0 Other: Voiding Method Toilet Toilet # Voids 1 - Exam Neuro: Patient is awake alert. She has global aphasia. She'll follow minimal simple commands by mimicking (thumbs up and index finder). Cranial nerve: Visual patel assessment is hard to assess because of her cooperation. EOM she's tracking throughout the room. Patient has right lower facial droop that's moderate in severity. Patient is mute Motor: The strength is 5/5 throughout. Some of the workup during his hospital visit consisted of: Lipid panel triglycerides 79, cholesterol is 204, LDLs 128, HDL 59. CT head is reported as no acute intracranial process. I personally reviewed th at a CT and there is no acute or subacute ischemia seen. There is no mass affect. CT angiography of the head and neck was reported as no evidence of dissection of the cervical internal carotid arteries or vertebral artery or any evidence of significant stenosis at the carotid bifurcation. No evidence of intracranial high-grade stenosis or intracranial aneurysm. Intracranial atherosclerosis of t he internal carotid artery without hemodynamic stenosis. Right and increased size of left pleural effusion. There is a pleural sign in the left which could represent empyema. Persistent that scattered nodular opacity likely representing metastatic disease from the patient known malignancy. EKG is reported as sinus rhythm. Low QRS voltage URI[facility] Drug screen is negative. MRI brain is reported as scattered foci of restricted diffusion compatible with acute/subacute CVA. Given multiple vascular distribution correlate for embolic phenomena. No abnormal postcontrast enhancement the, no evidence for mass. Nonspecific white matter changes likely secondary to chronic small vessel ischemic disease. I personally reviewed the MRI and I agree with the report. Patient has restriction diffusion over bilateral frontal left more than the right with right parietal occipital region The echo was reported as suboptimal acoustic windows. Contrast echo study performed. Borderline normal left ventricle systolic function septal bulge. There is septal and inferior basal hypokinesis. Routine EEG is normal. There is no focal slowing, epileptiform discharges or seizure on the EEG. - Labs CBC & Chem 7: 10/03/22 08:02 10/03/22 08:02 Labs: Abnormal Lab Results - Last 24 Hours (Table) 10/03/22 10/03/22 Range/Units 08:02 08:02 Neutrophils # 8.1 H (1.3-7.7) k/uL Glucose 104 H (74-99) mg/dL Alkaline Phosphatase 166 H (38-126) U/L Assessment and Plan Assessment: This is a 72-year-old woman who had the expressive aphasia and right facial weakness since 09/30/2022. Initially she presented to our facility yesterday and her symptoms has improved except some subtle right lower facial weakness but today as she presented again with expressive aphasia, dysarthria with right facial weakness Acute ischemic stroke (over bilateral hemisphere: bilateral frontal L>R, right parietal and occipital region). NIH stroke scale is a 6. Currently is global aphasic, mute,. Stroke appears embolic in nature: Possible cardioembolic. Hx of a-fib but was on Xarelto recently. Unsure if has large PFO and with DVT it embolized to brain. History of left lung cancer History of right breast cancer History of recent DVT about 3 weeks ago and is on Xarelto Left Pleural effusion on CTA History of pleural effusion History of atrial fibrillation and in past was on anticoagulation then stopped then after DVT 3 weeks ago restarted it Plan: Routine EEG is normal. Recommend to resume anticoagulation 1 days from now to avoid any hemorrhagic conversion. But if it's felt the benefit outweighed the risk then recommend heparin drip and no boluses and keep PTT at between 45 and 60 In addition to the aspirin 81 mg to I started during this ED I also start Plavix 75mg in the meantime. Once anticoagulation is restarted then no need for one of the antiplatelet. Patient was on Xarelto and developed a stroke and cardiology felt she failed Xarelto and will start her on different anticoagulant. Recommend to pursue transesophageal echocardiogram to rule out any left atrial thrombus or a large PFO to assess whether the exactly the source of the stroke. The patient had a recent DVT and I'll not sure if the clot traveled and embolized to the brain versus was a cardioembolic from the A. fib. She is unstable to have JESUS since not swallowing and there is risk of aspiration. Spoke with primary and will pursue with venous duplex of all extremities to r/o stroke. Continue Lipitor 40 mg daily at bedtime second stroke prophylaxis Continue neuro checks Cardiac monitoring PT OT and NURSE ADVISOR are consulted Cardiology is on board. I notified the MP regarding pursuing the transesophageal echocardiogram. Pulmonary team is consulted for pleural effusion and history of lung cancer We'll defer the rest of the medical management to primary team For DVT prophylaxis On subcu heparin 5000 units every 12 hours Plan discussed with primary team and her nurse. Time with Patient: Less than 30
[2022-10-03] MEDS: ATORVASTATIN 40 MG TAB PO SCH (22:26)
[2022-10-04] MEDS: SODIUM CHLORIDE 0.9% 1,000 ML IV SCH ×2 (00:53→18:28)
[2022-10-04] MEDS: carvediloL 3.125 MG TAB PO SCH ×2 (06:46→18:28)
[2022-10-04 08:37] LABS: Basophils % (A) 0 %; Eosinophils # (A) 0.1 k/uL (0-0.7); Eosinophils % (A) 1 %; HCT 41.6 % (34.0-46.0); HGB 13.8 gm/dL (11.4-16.0); Lymphocytes # (A) 1.1 k/uL (1.0-4.8); Lymphocytes % (A) 12 %; MCH 30.1 pg (25.0-35.0); MCHC 33.1 g/dL (31.0-37.0); MCV 90.8 fL (80.0-100.0); Mean Platelet Volume 8.3; Monocytes # (A) 0.8 k/uL (0-1.0); Monocytes % (A) 9 %; Neutrophils # (A) 6.9 k/uL (1.3-7.7); Neutrophils % (A) 77 %; Platelet Count 177 k/uL (150-450); RBC 4.58 m/uL (3.80-5.40); RDW 13.6 % (11.5-15.5)
[2022-10-04 08:48] LABS: ALT 11 U/L (4-34); AST 18 U/L (14-36); African American GFR (CKD) >90 (>60 ml/min/1.73 sqM); Albumin 3.5 g/dL (3.5-5.0); Alkaline Phosphatase 162 U/L (38-126); Anion Gap 8 mmol/L; Blood Urea Nitrogen 10 mg/dL (7-17); Carbon Dioxide 27 mmol/L (22-30); Chloride 104 mmol/L (98-107); Glucose 90 mg/dL (74-99); Non-African American GFR(CKD) >90 (>60 ml/min/1.73 sqM); Potassium 3.7 mmol/L (3.5-5.1); Sodium 139 mmol/L (137-145); Total Bilirubin 0.5 mg/dL (0.2-1.3); Total Protein 6.4 g/dL (6.3-8.2)
--- NOTE | 2022-10-04 10:10 | P.PN ---
Subjective Progress Note Date: 10/04/22 Kat Kim, is a 72-year-old female who presented to [facility] emergency room with a chief complaint difficulty with her speech, and right facial drooping, patient presented to emergency room with similar complaints yesterday, at that time she was offered MRI and admission by [facility] room physician however she felt that she was improving and she opted to go home. However over the next several hours patient developed complete aphasia, she was brought back to the emergency room by her family. She was evaluated in the emergency room vital examination on presentation revealed a temperature of 99 pulse 84 respiration 18 blood pressure 160/87 pulse ox 94% on room air Laboratory data revealed a white blood count of 7.1 hemoglobin 14.6 platelet count 167 sodium 137 potassium 4.3 chloride 102 CO2 29 BUN 9 creatinine 0.56 urine analysis revealed no evidence of infection and urine toxicology screen was negative Testing in the emergency room revealed, computed tomography scan of the brain without contrast was done in the emergency room and revealed no acute intracranial process, CT angiogram of the brain done in the emergency room revealed no evidence of dissection of the cervical internal carotid arteries or vertebral arteries or any evidence of significant stenosis at the carotid bifurcation there was no evidence of intracranial high-grade stenosis or intracranial aneurysm Patient was admitted to medical floor for further evaluation and treatment, neurology consultation was requested Past medical history is significant for history of breast cancer, history of stacey ng cancer, history of atrial fibrillation, history of lower extremity DVT, patient was maintained on Xarelto At home On 10/02/2022. Patient is currently resting in room remains with difficulty in speech and right facial drooping. MRI of the brain was completed showing scattered foci of restricted diffusion compatible with acute or subacute CVA given multiple vascular distributions correlate for emboli phenomenon. Neurology services are following. Cardiology services also consulted. Current vital signs temp 98.1, heart rate 74, blood pressure 129/67 pulse ox of 94% on room air On 10/03/2022, patient was seen and examined on telemetry, case was discussed in details with Dr. Amadou López neurologist, patient is developing more difficulty with swallowing, recommendation from neurology is to proceed with JESUS, to rule out cardiac thrombus or PFO. However due to significant difficulty with swallowing, cardiology wanted to wait at this time on JESUS. Recommendation from neurology at this time is to proceed with upper and lower bilateral lower extremity Doppler to rule out acute DVT, and to start anticoagulation starting tomorrow. On 10/04/2022 patient is sitting comfortably in chair. Patient remains nonverbal. Pradaxa has been started per cardiology and neurology recommendations. Current vital signs temp 97.5, heart rate 77, respiratory rate 16, blood pressure 1 5476 with pulse ox 93% on room air. Per cardiology at this time JESUS remains on hold due to difficulty in swallowing. Objective - Vital Signs Vital signs: Vital Signs Temp 97.5 F L 10/04/22 04:00 Pulse 77 10/04/22 04:00 Resp 16 10/04/22 04:00 BP 154/76 10/04/22 04:00 Pulse Ox 93 L 10/04/22 09:32 FiO2 Intake & Output 10/03/22 10/04/22 10/04/22 18:59 06:59 18:59 Intake Total 10 450 Balance 10 450 Intake: IV 10 Invasive Line 2 10 Intake, IV Titration 450 Amount Sodium Chloride 0.9% 1, 450 000 ml @ 75 mls/hr IV . [id number] [facility] Rx#:[id number] Oral 0 Other: Voiding Method Toilet Toilet # Voids 2 2 - Exam In general patient is alert and oriented, able to communicate by writing on board in no apparent distress HEENT head normocephalic and atraumatic Neck is supple no JVD no goiter no lymphadenopathy no carotid bruit Chest examination is clear to auscultation no crackles no wheezing Cardiac exam reveals regular heart sounds S1 and S2 no gallops no murmurs Abdomen is soft nontender no organomegaly with normal bowel sounds Extremity exam reveals no edema no cyanosis or clubbing Neurological examination reveals complete expressive aphasia, and right facial drooping otherwise no focal deficit - Labs CBC & Chem 7: 10/04/22 07:57 10/04/22 07:57 Labs: Abnormal Lab Results - Last 24 Hours (Table) 10/04/22 Range/Units 07:57 Creatinine 0.49 L (0.52-1.04) mg/dL Alkaline Phosphatase 162 H (38-126) U/L Assessment and Plan Plan: Expressive aphasia and right facial droop, likely related to acute ischemic stroke Underlying history of lung cancer Underlying history of breast cancer Previous history of DVT 3 weeks ago, maintained on Xarelto Underlying history of left pleural effusion History of atrial fibrillation At this time patient was seen and examined in the emergency room Home medications reviewed and reordered Cardiology, pulmonary and neurology service is following Patient started on Pradaxa per cardiology JESUS currenlty on hold per cardiology Echocardiogram was ordered Will follow closely
[2022-10-04] MEDS: CLOPIDOGREL 75 MG TAB PO SCH (10:11)
[2022-10-04] MEDS: ANASTROZOLE 1 MG TAB PO SCH (10:11)
[2022-10-04] MEDS: ASPIRIN 81 MG PO SCH (10:11)
[2022-10-04] MEDS: OSIMERTINIB 80 MG PO SCH (10:44)
--- NOTE | 2022-10-04 10:57 | P.PN ---
Subjective Progress Note Date: 10/04/22 72-year-old female with a history of breast cancer, presents to the emergency department on October 01, complaining of strokelike symptoms. The patient apparently had a slight right-sided facial droop, and was unable to speak. The patient was admitted to the hospital, and we are asked to see her for her chr onic left-sided effusion. The patient has had a thoracentesis in the past, which I believe was done at [facility]. Currently, the patient's on room air, and not receiving any IV fluids. The speech pathologist was in room with her. We saw her in 378. Her medical history includes rest cancer, hypertension, myocardial infarction, osteoarthritis, and apparently the patient is a lifelong nonsmoker. She has had a catheterization with stent placement in her right coronary artery. She appears in no distress. CBC is completely normal. PT 12.3 with an INR 1.2. PTT is 31.6. Electrolytes are normal including sodium, potassium, chloride, carbon dioxide, anion gap, BUN, and creatinine. Glucose 104. The rest of the comprehensive metabolic profile is essentially normal. Urine is negative. Drug screen was negative. Chest x-ray shows a moderate left-sided effusion, and a small right-sided effusion. Brain CT was negative. Angiography, CT, showed no evidence of high-grade stenosis. Brain MRI showed scattered foci of restricted diffusion compatible with acute subacute LINDA. There were multiple vascular distributions. No evidence for mass. Progress note dated 10/03/2022. 72-year-old female with history of breast cancer, and chronic left-sided pleural effusion. The patient was admitted with a diagnosis of stroke. She is currently seeing neurology. She stable from the pulmonary standpoint. She's on room air. She's not receiving any IV fluids. The patient has a right facial droop, and is aphasic. CBC today is normal. Sodium 140, potassium 3.8, chlorides 105, CO2 27, anion gap 8, BUN 15, and creatinine 0.56. The patient is seen today 10/04/2022 in follow-up on the selective care unit. She is currently sitting up in a chair at the bedside. She remains aphasic. She remains with a right-sided facial droop. She is stable and on room air. White count 9.0. Hemoglobin 13.8. Platelets 177. Sodium 139. Potassium 3.7. Bicarb 27. BUN 10. Creatinine 0.49. Glucose 162. Venous Dopplers revealed no evidence of DVT. She remains on aspirin and initiated on Pradaxa. Normal saline at 75 ML's per hour. Objective - Vital Signs Vital signs: Vital Signs Temp 98 F 10/04/22 08:00 Pulse 69 10/04/22 08:00 Resp 16 10/04/22 08:00 BP 151/78 10/04/22 08:00 Pulse Ox 93 L 10/04/22 09:32 FiO2 Intake & Output 10/03/22 10/04/22 10/04/22 18:59 06:59 18:59 Intake Total 10 450 120 Balance 10 450 120 Intake: IV 10 Invasive Line 2 10 Intake, IV Titration 450 Amount Sodium Chloride 0.9% 1, 450 000 ml @ 75 mls/hr IV . [id number] [facility] Rx#:[id number] Oral 0 120 Other: Voiding Method Toilet Toilet # Voids 2 2 1 - Exam No acute distress, 72-year-old female. Currently not on any supplemental oxygen. No obvious respiratory distress. HEENT examination is grossly unremarkable. Mucous membranes are moist. No oral lesions. The patient has an obvious right facial droop. Neck supple. Full range of motion. No adenopathy thyromegaly or neck vein distention. Cardiovascular examination reveals regular rhythm rate. S1-S2 normal. No S3 or S4. No discernible murmur noted. Lungs reveal crackles in the posterior bases left greater than right. Abdomen soft bowel sounds are heard. No masses or tenderness. Extremities are intact. No cyanosis clubbing or edema. Skin is without rash or lesion. Neurologic examination reveals a right facial droop. Also, the patient is not able to speak. - Labs CBC & Chem 7: 10/04/22 07:57 10/04/22 07:57 Labs: Abnormal Lab Results - Last 24 Hours (Table) 10/04/22 Range/Units 07:57 Creatinine 0.49 L (0.52-1.04) mg/dL Alkaline Phosphatase 162 H (38-126) U/L Assessment and Plan Assessment: Acute/subacute CVA, with aphasia, and right facial droop. History of breast cancer, and chronic left-sided pleural effusion. History of hypertension. History of CAD, with previous stent placement, right coronary artery. History of myocardial infarction. History of osteoarthritis. Lifelong nontobacco user. Plan: The patient was seen and evaluated Medications and labs reviewed Currently stable and on room air No plans for thoracentesis We will see the patient as needed I have personally seen and examined the patient, performed the documentation and the assessment and plan as written. Number of minutes spent on the visit: 10.
--- NOTE | 2022-10-04 11:53 | P.PN ---
Subjective Progress Note Date: 10/04/22 The patient is a 72-year-old female who is currently admitted to the hospital with an acute embolic CVA. Unfortunately she has now nonverbal with right facial droop. The patient was interviewed and examined sitting up in the recliner chair. She is alert and can nod appropriately to questions. She denies any chest pain or difficulty breathing. Occasionally dizzy and she stands up. GENERAL: Well-appearing, well-nourished and in no acute distress. NECK: Supple without JVD or thyromegaly. LUNGS: Breath sounds clear to auscultation bilaterally. Respiration equal and unlabored. No wheezes, rales or rhonchi. HEART: Regular rate and rhythm without murmurs, rubs or gallops. S1 and S2 heard. EXTREMITIES: Normal range of motion, no edema. No clubbing or cyanosis. Peripheral pulses intact and strong. TELEMETRY: Sinus rhythm overnight IMPRESSION: Acute embolic CVA History of DVT on Xarelto Coronary artery disease with prior stenting of the RCA Cardiomyopathy, EF 45-50% with inferior septal and inferior basal hypokinesis Hypertension Hyperlipidemia History of breast cancer History of recurrent pleural effusions History tobacco use PLAN: Discontinue IV fluids Start low-dose lisinopril for cardiomyopathy Start Pradaza for anticoagulation Outpatient followup with primary senior contracts manager, Dr Vincent I am dictating on behalf of Dr Manuel Perez's history/physical and assessment/plan. Objective - Vital Signs Vital signs: Vital Signs Temp 98 F 10/04/22 08:00 Pulse 69 10/04/22 08:00 Resp 16 10/04/22 08:00 BP 151/78 10/04/22 08:00 Pulse Ox 93 L 10/04/22 09:32 FiO2 Intake & Output 10/03/22 10/04/22 10/04/22 18:59 06:59 18:59 Intake Total 10 450 120 Balance 10 450 120 Intake: IV 10 Invasive Line 2 10 Intake, IV Titration 450 Amount Sodium Chloride 0.9% 1, 450 000 ml @ 75 mls/hr IV . [id number] [facility] Rx#:[id number] Oral 0 120 Other: Voiding Method Toilet Toilet # Voids 2 2 1 - Labs CBC & Chem 7: 10/04/22 07:57 10/04/22 07:57 Labs: Abnormal Lab Results - Last 24 Hours (Table) 10/04/22 Range/Units 07:57 Creatinine 0.49 L (0.52-1.04) mg/dL Alkaline Phosphatase 162 H (38-126) U/L
--- NOTE | 2022-10-04 12:39 | P.PN ---
Subjective Progress Note Date: 10/04/22 Patient seen at bedside and that she is accompanied with her son as well as her nurse. Per the nurse she'll minimally follow commands. Otherwise she remains to be about the same and has global aphasia and unable to swallow. Objective - Vital Signs Vital signs: Vital Signs Temp 98 F 10/04/22 08:00 Pulse 69 10/04/22 08:00 Resp 16 10/04/22 08:00 BP 151/78 10/04/22 08:00 Pulse Ox 93 L 10/04/22 09:32 FiO2 Intake & Output 10/03/22 10/04/22 10/04/22 18:59 06:59 18:59 Intake Total 10 450 120 Balance 10 450 120 Intake: IV 10 Invasive Line 2 10 Intake, IV Titration 450 Amount Sodium Chloride 0.9% 1, 450 000 ml @ 75 mls/hr IV . [id number] [facility] Rx#:[id number] Oral 0 120 Other: Voiding Method Toilet Toilet # Voids 2 2 1 - Exam Neuro: Patient is awake alert. She has global aphasia. She'll follow minimal simple commands (such as thumbns up, sticking out her tongue and wigglinger her toes). As stated earlier has global aphasia and felt more expresive. Cranial nerve: Visual patel assessment is hard to assess because of her cooperation. EOM she's tracking throughout the room. Patient has right lower facial droop that's moderate in severity. Patient is mute. Motor: The strength is 5/5 throughout. Some of the workup during his hospital visit consisted of: Lipid panel triglycerides 79, cholesterol is 204, LDLs 128, HDL 59. CT head is reported as no acute intracranial process. I personally reviewed that a CT and there is no acute or subacute ischemia seen. There is no mass a ffect. CT angiography of the head and neck was reported as no evidence of dissection of the cervical internal carotid arteries or vertebral artery or any evidence of significant stenosis at the carotid bifurcation. No evidence of intracranial high-grade stenosis or intracranial aneurysm. Intracranial atherosclerosis of the internal carotid artery without hemodynamic stenosis. Right and increased size of left pleural effusion. There is a pleural sign in the left which could represent empyema. Persistent that scattered nodular opacity likely representing metastatic disease from the patient known malignancy. EKG is reported as sinus rhythm. Low QRS voltage [facility] Drug screen is negative. MRI brain is reported as scattered foci of restricted diffusion compatible with acute/subacute CVA. Given multiple vascular distribution correlate for embolic phenomena. No abnormal postcontrast enhancement the, no evidence for mass. Nonspecific white matter changes likely secondary to chronic small vessel ischemic disease. I personally reviewed the MRI and I agree with the report. Patient has restriction diffusion over bilateral frontal left more than the right with right parietal occipital region The echo was reported as suboptimal acoustic windows. Contrast echo study performed. Borderline normal left ventricle systolic function septal bulge. There is septal and inferior basal hypokinesis. Routine EEG is normal. There is no focal slowing, epileptiform discharges or seizure on the EEG. Venous duplex of the upper and lower extremities negative - Labs CBC & Chem 7: 10/04/22 07:57 10/04/22 07:57 Labs: Abnormal Lab Results - Last 24 Hours (Table) 10/04/22 Range/Units 07:57 Creatinine 0.49 L (0.52-1.04) mg/dL Alkaline Phosphatase 162 H (38-126) U/L Assessment and Plan Assessment: This is a 72-year-old woman who had the expressive aphasia and right facial weakness since 09/30/2022. Initially she presented to our facility yesterday and her symptoms has improved except some subtle right lower facial weakness but today as she presented again with expressive aphasia, dysarthria with right facial weakness Acute ischemic stroke (over bilateral hemisphere: bilateral frontal L>R, right parietal and occipital region). NIH stroke scale is a 6. Currently is global aphasic, mute,. Stroke appears embolic in nature: Possible cardioembolic. Hx of a-fib but was on Xarelto recently. Unsure if has large PFO and with DVT it embolized to brain. History of left lung cancer History of right breast cancer History of recent DVT about 3 weeks ago and is on Xarelto Left Pleural effusion on CTA History of pleural effusion History of atrial fibrillation and in past was on anticoagulation then stopped then after DVT 3 weeks ago restarted it Plan: Routine EEG is normal. Patient can resume anticoagulation starting today and per cardiology are considering Pradaxa since failed Xarelto. She's currently on aspirin 81 mg (h ome med) as well as Plavix 75mg (new during this admission). Once she started on anticoagulation no need for dual antiplatelet and we'll defer the use of antiplatelet to the cardiology and primary team. Recommend to pursue transesophageal echocardiogram to rule out any left atrial thrombus or a large PFO to assess whether the exactly the source of the stroke. The patient had a recent DVT and I'll not sure if the clot traveled and embolized to the brain versus was a cardioembolic from the A. fib. She is unstable to have TEEat this time since not swallowing and there is risk of aspiration. Once improved to pursue with JESUS. Continue Lipitor 40 mg daily at bedtime second stroke prophylaxis Continue neuro checks Cardiac monitoring PT OT and MEDICAL RECEPTIONIST BILLER are consulted Cardiology is on board. Pulmonary team is consulted for pleural effusion and history of lung cancer We'll defer the rest of the medical management to primary team For DVT prophylaxis: Pradaxa. Plan discussed with primary team and her nurse. Dr. Appiah will start neurology service tomorrow A.M. Time with Patient: Less than 30
[2022-10-04] MEDS: HEPARIN SODIUM,PORCINE/PF 5,000 UNIT/0.5 ML SYRINGE SQ SCH (15:54)
[2022-10-04] MEDS: DABIGATRAN 150 MG CAP PO SCH (20:52)
[2022-10-04] MEDS: ATORVASTATIN 40 MG TAB PO SCH (20:52)
[2022-10-05] MEDS: SODIUM CHLORIDE 0.9% 1,000 ML IV SCH ×2 (04:41→16:42)
[2022-10-05] MEDS: carvediloL 3.125 MG TAB PO SCH ×2 (06:33→16:37)
[2022-10-05 08:59] LABS: Basophils # (A) 0.1 k/uL (0-0.2); Basophils % (A) 1 %; Eosinophils # (A) 0.1 k/uL (0-0.7); Eosinophils % (A) 1 %; HCT 41.5 % (34.0-46.0); Lymphocytes # (A) 0.9 k/uL (1.0-4.8); Lymphocytes % (A) 10 %; MCH 30.3 pg (25.0-35.0); MCHC 33.7 g/dL (31.0-37.0); MCV 89.9 fL (80.0-100.0); Mean Platelet Volume 8.4; Monocytes # (A) 0.8 k/uL (0-1.0); Monocytes % (A) 9 %; Neutrophils # (A) 7.1 k/uL (1.3-7.7); Neutrophils % (A) 78 %; Platelet Count 189 k/uL (150-450); RBC 4.61 m/uL (3.80-5.40); RDW 13.4 % (11.5-15.5); WBC 9.2 k/uL (3.8-10.6)
[2022-10-05 09:07] LABS: ALT 11 U/L (4-34); AST 20 U/L (14-36); African American GFR (CKD) >90 (>60 ml/min/1.73 sqM); Albumin 3.5 g/dL (3.5-5.0); Alkaline Phosphatase 158 U/L (38-126); Anion Gap 8 mmol/L; Blood Urea Nitrogen 8 mg/dL (7-17); Calcium 8.9 mg/dL (8.4-10.2); Carbon Dioxide 26 mmol/L (22-30); Chloride 102 mmol/L (98-107); Glucose 86 mg/dL (74-99); Non-African American GFR(CKD) >90 (>60 ml/min/1.73 sqM); Potassium 3.8 mmol/L (3.5-5.1); Sodium 136 mmol/L (137-145); Total Bilirubin 0.7 mg/dL (0.2-1.3); Total Protein 6.3 g/dL (6.3-8.2)
[2022-10-05] MEDS: DABIGATRAN 150 MG CAP PO SCH ×2 (09:16→21:57)
[2022-10-05] MEDS: ANASTROZOLE 1 MG TAB PO SCH (09:17)
[2022-10-05] MEDS: CLOPIDOGREL 75 MG TAB PO SCH (09:17)
--- NOTE | 2022-10-05 09:49 | P.PN ---
Subjective Progress Note Date: 10/05/22 Kat Kim, is a 72-year-old female who presented to [facility] emergency room with a chief complaint difficulty with her speech, and right facial drooping, patient presented to emergency room with similar complaints yesterday, at that time she was offered MRI and admission by [facility] room physician however she felt that she was improving and she opted to go home. However over the next several hours patient developed complete aphasia, she was brought back to the emergency room by her family. She was evaluated in the emergency room vital examination on presentation revealed a temperature of 99 pulse 84 respiration 18 blood pressure 160/87 pulse ox 94% on room air Laboratory data revealed a white blood count of 7.1 hemoglobin 14.6 platelet count 167 sodium 137 potassium 4.3 chloride 102 CO2 29 BUN 9 creatinine 0.56 urine analysis revealed no evidence of infection and urine toxicology screen was negative Testing in the emergency room revealed, computed tomography scan of the brain without contrast was done in the emergency room and revealed no acute intracranial process, CT angiogram of the brain done in the emergency room revealed no evidence of dissection of the cervical internal carotid arteries or vertebral arteries or any evidence of significant stenosis at the carotid bifurcation there was no evidence of intracranial high-grade stenosis or intracranial aneurysm Patient was admitted to medical floor for further evaluation and treatment, neurology consultation was requested Past medical history is significant for history of breast cancer, history of stacey ng cancer, history of atrial fibrillation, history of lower extremity DVT, patient was maintained on Xarelto At home On 10/02/2022. Patient is currently resting in room remains with difficulty in speech and right facial drooping. MRI of the brain was completed showing scattered foci of restricted diffusion compatible with acute or subacute CVA given multiple vascular distributions correlate for emboli phenomenon. Neurology services are following. Cardiology services also consulted. Current vital signs temp 98.1, heart rate 74, blood pressure 129/67 pulse ox of 94% on room air On 10/03/2022, patient was seen and examined on telemetry, case was discussed in details with Dr. Amadou López neurologist, patient is developing more difficulty with swallowing, recommendation from neurology is to proceed with JESUS, to rule out cardiac thrombus or PFO. However due to significant difficulty with swallowing, cardiology wanted to wait at this time on JESUS. Recommendation from neurology at this time is to proceed with upper and lower bilateral lower extremity Doppler to rule out acute DVT, and to start anticoagulation starting tomorrow. On 10/04/2022 patient is sitting comfortably in chair. Patient remains nonverbal. Pradaxa has been started per cardiology and neurology recommendations. Current vital signs temp 97.5, heart rate 77, respiratory rate 16, blood pressure 1 5476 with pulse ox 93% on room air. Per cardiology at this time JESUS remains on hold due to difficulty in swallowing. On 10/05/2022 patient was seen and examined on the medical she is alert and oriented 3 in no apparent distress, she is sitting up in a chair, she still has significant facial drooping, she has complete aphasia, she tries to answer questions by nodding her head, she is still having significant difficulty with swallowing, cardiology note reviewed, no plans for JESUS at this time due to difficulty swallowing and the risk of aspiration, she was started on Pradaxa for anticoagulation, she is having difficulty swallowing the pill as it cannot be crushed. At this time will continue with physical therapy, occupational therapy, and speech therapy, will reassess in a.m. Objective - Vital Signs Vital signs: Vital Signs Temp 98.1 F 10/05/22 09:13 Pulse 72 10/05/22 09:13 Resp 18 10/05/22 09:13 BP 161/76 10/05/22 09:13 Pulse Ox 95 10/05/22 09:13 FiO2 Intake & Output 10/04/22 10/05/22 10/05/22 18:59 06:59 18:59 Intake Total 360 Balance 360 Intake: Oral 360 Other: Voiding Method Toilet Toilet # Voids 2 1 - Exam In general patient is alert and oriented, able to communicate by writing on board in no apparent distress HEENT head normocephalic and atraumatic Neck is supple no JVD no goiter no lymphadenopathy no carotid bruit Chest examination is clear to auscultation no crackles no wheezing Cardiac exam reveals regular heart sounds S1 and S2 no gallops no murmurs Abdomen is soft nontender no organomegaly with normal bowel sounds Extremity exam reveals no edema no cyanosis or clubbing Neurological examination reveals complete expressive aphasia, and right facial drooping otherwise no focal deficit - Labs CBC & Chem 7: 10/05/22 07:56 10/05/22 07:56 Labs: Abnormal Lab Results - Last 24 Hours (Table) 10/05/22 10/05/22 Range/Units 07:56 07:56 Lymphocytes # 0.9 L (1.0-4.8) k/uL Sodium 136 L (137-145) mmol/L Creatinine 0.48 L (0.52-1.04) mg/dL Alkaline Phosphatase 158 H (38-126) U/L Assessment and Plan Plan: Expressive aphasia and right facial droop, likely related to acute ischemic stroke Underlying history of lung cancer Underlying history of breast cancer Previous history of DVT 3 weeks ago, maintained on Xarelto Underlying history of left pleural effusion History of atrial fibrillation At this time patient was seen and examined in the emergency room Home medications reviewed and reordered Cardiology, pulmonary and neurology service is following Patient started on Pradaxa per cardiology JESUS currenlty on hold per cardiology Echocardiogram was ordered Will follow closely
[2022-10-05] MEDS: OSIMERTINIB 80 MG PO SCH ×2 (10:59→12:19)
--- NOTE | 2022-10-05 11:55 | P.PN ---
Subjective Progress Note Date: 10/05/22 The patient is a 72-year-old female who is currently admitted to the hospital with an acute embolic CVA. Unfortunately she has now nonverbal with right facial droop. The patient was interviewed and examined sitting up in the recliner chair. She is alert and can nod appropriately to questions. She denies any chest pain or difficulty breathing. No changes since yesterday. GENERAL: Well-appearing, well-nourished and in no acute distress. Facial droop noted. NECK: Supple without JVD or thyromegaly. LUNGS: Breath sounds clear to auscultation bilaterally. Respiration equal and unlabored. No wheezes, rales or rhonchi. HEART: Regular rate and rhythm without murmurs, rubs or gallops. S1 and S2 heard . EXTREMITIES: Normal range of motion, no edema. No clubbing or cyanosis. Peripheral pulses intact and strong. TELEMETRY: Sinus rhythm overnight IMPRESSION: Acute embolic CVA History of DVT on Xarelto Coronary artery disease with prior stenting of the RCA Cardiomyopathy, EF 45-50% with inferior septal and inferior basal hypokinesis Hypertension Hyperlipidemia History of breast cancer History of recurrent pleural effusions History tobacco use PLAN: Increase lisinopril No further recommendations from the cardiac standpoint Outpatient follow-up with primary supervisor knitting Dr. Krishnamurthy I am dictating on behalf of Dr Manuel Perez's history/physical and assessment/plan. Objective - Vital Signs Vital signs: Vital Signs Temp 97.4 F L 10/05/22 10:58 Pulse 73 10/05/22 10:58 Resp 18 10/05/22 10:58 BP 152/81 10/05/22 10:58 Pulse Ox 95 10/05/22 10:58 FiO2 Intake & Output 10/04/22 10/05/22 10/05/22 18:59 06:59 18:59 Intake Total 360 Balance 360 Intake: Oral 360 Other: Voiding Method Toilet Toilet # Voids 2 1 - Labs CBC & Chem 7: 10/05/22 07:56 10/05/22 07:56 Labs: Abnormal Lab Results - Last 24 Hours (Table) 10/05/22 10/05/22 Range/Units 07:56 07:56 Lymphocytes # 0.9 L (1.0-4.8) k/uL Sodium 136 L (137-145) mmol/L Creatinine 0.48 L (0.52-1.04) mg/dL Alkaline Phosphatase 158 H (38-126) U/L
--- NOTE | 2022-10-05 17:11 | P.PN ---
Subjective Progress Note Date: 10/05/22 Patient initially seen by Dr. Amadou Dye. Please refer to his note for details. Patient is a 72-year-old right-handed female with history of stage IV lung cancer, came with global aphasia and muteness. Patient's daughter was present, who provided with history. On Wednesday evening 09/30/2022 at 7 PM, while cutting vegetables, she stopped getting the jaycob and started drooling for 15 minutes. She was brought to the hospital and her speech returned back to baseline. She was sent home, and next day on at 9:30 AM, she stopped talking and has never regained speech yet. MRI of the brain revealed multiple bilateral hemispheric stroke, left slightly more than right. Patient has history of DVT 3 weeks ago and atrial fibrillation and was on Xarelto but appears failed. Patient was started on broad neck side yesterday. JESUS is pending. Patient's daughter was also present, who states that patient is cognitively intact. She understands everything, but cannot express herself which makes her very frustrated. Some of the workup during his hospital visit consisted of: Lipid panel triglycerides 79, cholesterol is 204, LDLs 128, HDL 59. CT head is reported as no acute intracranial process. I personally reviewed that a CT and there is no acute or subacute ischemia seen. There is no mass affect. CT angiography of the head and neck was reported as no evidence of dissection of the cervical internal carotid arteries or vertebral artery or any evidence of significant stenosis at the carotid bifurcation. No evidence of intracranial high-grade stenosis or intracranial aneurysm. Intracranial atherosclerosis of the internal carotid artery without hemodynamic stenosis. Right and increased size of left pleural effusion. There is a pleural sign in the left which could represent empyema. Persistent that scattered nodular opacity likely representing metastatic disease from the patient known malignancy. EKG is reported as sinus rhythm. Low QRS voltage URIne Drug screen is negative. MRI brain is reported as scattered foci of restricted diffusion compatible with acute/subacute CVA. Given multiple vascular distribution correlate for embolic phenomena. No abnormal postcontrast enhancement the, no evidence for mass. Nonspecific white matter changes likely secondary to chronic small vessel ischemic disease. I personally reviewed the MRI and I agree with the report. P atient has restriction diffusion over bilateral frontal left more than the right with right parietal occipital region The echo was reported as suboptimal acoustic windows. Contrast echo study performed. Borderline normal left ventricle systolic function septal bulge. There is septal and inferior basal hypokinesis. Routine EEG is normal. There is no focal slowing, epileptiform discharges or seizure on the EEG. Venous duplex of the upper and lower extremities negative Objective - Vital Signs Vital signs: Vital Signs Temp 97.4 F L 10/05/22 10:58 Pulse 73 10/05/22 10:58 Resp 18 10/05/22 10:58 BP 152/81 10/05/22 10:58 Pulse Ox 95 10/05/22 10:58 FiO2 Intake & Output 10/04/22 10/05/22 10/05/22 18:59 06:59 18:59 Intake Total 360 236 Balance 360 236 Intake: Oral 360 236 Other: Voiding Method Toilet Toilet Toilet # Voids 2 1 - Exam Patient is alert and awake, sitting in the recliner, appears comfortable. Patient has significant expressive aphasia. Not able to vocalize any intelligible speech. Not able to name any objects. Patient able to point correct objects on the paper. She is able to point to the window, the door and the ceiling. She cannot name any objects or repeat. Patient has rise facial asymmetry. Patient has right pronation with minimal drift. - Labs CBC & Chem 7: 10/05/22 07:56 10/05/22 07:56 Labs: Abnormal Lab Results - Last 24 Hours (Table) 10/05/22 10/05/22 Range/Units 07:56 07:56 Lymphocytes # 0.9 L (1.0-4.8) k/uL Sodium 136 L (137-145) mmol/L Creatinine 0.48 L (0.52-1.04) mg/dL Alkaline Phosphatase 158 H (38-126) U/L Assessment and Plan Assessment: This is a 72-year-old woman who had the expressive aphasia and right facial weakness since 09/30/2022. Initially she presented to our facility yesterday and her symptoms has improved except some subtle right lower facial weakness but today as she presented again with expressive aphasia, dysarthria with right facial weakness Acute ischemic stroke (over bilateral hemisphere: bilateral frontal L>R, right parietal and occipital region). NIH stroke scale is a 6. Currently is global aphasic, mute,. Stroke appears embolic in nature: Possible cardioembolic. Hx of a-fib but was on Xarelto recently. Unsure if has large PFO and with DVT it embolized to brain. History of left lung cancer History of right breast cancer History of recent DVT about 3 weeks ago and is on Xarelto Left Pleural effusion on CTA History of pleural effusion History of atrial fibrillation and in past was on anticoagulation then stopped then after DVT 3 weeks ago restarted it Plan: Routine EEG is normal. Patient can resume anticoagulation starting today and per cardiology are considering Pradaxa since failed Xarelto. She's currently on aspirin 81 mg (home med) as well as Plavix 75mg (new during this admission). Once she started on anticoagulation no need for dual antiplatelet and we'll defer the use of antiplatelet to the cardiology and primary team. Recommend to pursue transesophageal echocardiogram to rule out any left atrial thrombus or a large PFO to assess whether the exactly the source of the stroke. The patient had a recent DVT and I'll not sure if the clot traveled and embolized to the brain versus was a cardioembolic from the A. fib. She is unstable to have JESUS at this time since not swallowing and there is risk of aspiration. Once improved to pursue with JESUS. Continue Lipitor 40 mg daily at bedtime second stroke prophylaxis Continue neuro checks Cardiac monitoring PT OT and ELECTRICAL POWER STATION TECHNICIAN are consulted Cardiology is on board. Pulmonary team is consulted for pleural effusion and history of lung cancer We'll defer the rest of the medical management to primary team Discussed with patient's daughter in detail. For DVT prophylaxis: Pradaxa.
[2022-10-05] MEDS: ATORVASTATIN 40 MG TAB PO SCH (21:57)
[2022-10-05] MEDS: DOCUSATE 100 MG CAP PO SCH (22:00)
[2022-10-06] MEDS: SODIUM CHLORIDE 0.9% 1,000 ML IV SCH ×2 (05:39→20:10)
[2022-10-06] MEDS: carvediloL 3.125 MG TAB PO SCH ×2 (06:43→18:06)
[2022-10-06 08:49] LABS: Basophils % (A) 0 %; Eosinophils # (A) 0.1 k/uL (0-0.7); Eosinophils % (A) 1 %; HCT 41.4 % (34.0-46.0); HGB 13.6 gm/dL (11.4-16.0); Lymphocytes # (A) 0.8 k/uL (1.0-4.8); Lymphocytes % (A) 8 %; MCH 29.6 pg (25.0-35.0); MCHC 32.8 g/dL (31.0-37.0); MCV 90.2 fL (80.0-100.0); Mean Platelet Volume 8.2; Monocytes # (A) 0.7 k/uL (0-1.0); Monocytes % (A) 8 %; Neutrophils % (A) 82 %; Platelet Count 192 k/uL (150-450); RBC 4.59 m/uL (3.80-5.40); RDW 13.4 % (11.5-15.5); WBC 9.7 k/uL (3.8-10.6)
[2022-10-06 09:05] LABS: ALT 11 U/L (4-34); AST 18 U/L (14-36); African American GFR (CKD) >90 (>60 ml/min/1.73 sqM); Albumin 3.4 g/dL (3.5-5.0); Alkaline Phosphatase 154 U/L (38-126); Anion Gap 8 mmol/L; Blood Urea Nitrogen 13 mg/dL (7-17); Calcium 8.8 mg/dL (8.4-10.2); Carbon Dioxide 25 mmol/L (22-30); Chloride 103 mmol/L (98-107); Glucose 98 mg/dL (74-99); Non-African American GFR(CKD) >90 (>60 ml/min/1.73 sqM); Potassium 3.7 mmol/L (3.5-5.1); Sodium 136 mmol/L (137-145); Total Bilirubin 0.7 mg/dL (0.2-1.3)
[2022-10-06] MEDS: CLOPIDOGREL 75 MG TAB PO SCH (09:35)
[2022-10-06] MEDS: ANASTROZOLE 1 MG TAB PO SCH (09:35)
[2022-10-06] MEDS: DOCUSATE 100 MG CAP PO SCH ×2 (09:35→20:40)
[2022-10-06] MEDS: DABIGATRAN 150 MG CAP PO SCH ×3 (09:35→20:50)
[2022-10-06] MEDS: lisinopriL 5 MG TAB PO SCH (09:35)
[2022-10-06] MEDS: OSIMERTINIB 80 MG PO SCH (09:36)
[2022-10-06] MEDS ORDERED: Potassium Replacement Protocol 1 EACH MISC MISCELLANE PRN (10:03)
[2022-10-06] MEDS ORDERED: POTASSIUM BICARBONATE/CIT AC 20 MEQ TABLET.EFF PO SCH (11:00)
--- NOTE | 2022-10-06 14:05 | P.PN ---
Subjective Progress Note Date: 10/06/22 HISTORY OF PRESENT ILLNESS: This is a 72-year-old female who follows in the office with Dr. Vincent. Patient is admitted to the hospital secondary to acute embolic CVA. Patient examined this morning. She is sitting up in the chair. Patient is nonverbal. She denies any chest pain or pressure. Denies any shortness of breath. Vital signs are stable. PHYSICAL EXAM: VITAL SIGNS: Reviewed. GENERAL: Well-developed in no acute distress. NECK: Supple. No JVD or thyromegaly LUNGS: Respirations even and unlabored. Lungs essentially clear to auscultation bilaterally. HEART: Regular rate and rhythm. S1 and S2 heard. EXTREMITIES: Normal range of motion. No clubbing or cyanosis. Peripheral pulses intact. No lower extremity edema ASSESSMENT: Acute embolic CVA History of DVT on Xarelto outpatient Coronary artery disease with previous stenting of the RCA Cardiomyopathy, EF 45-50% with inferior septal and inferior basal hypokinesis Hypertension Hyperlipidemia History of breast cancer History of recurrent pleural effusions Remote tobacco use PLAN: Patient has been switched from Xarelto to Pradaxa Continue additional cardiac medications Patient is stable from a cardiac standpoint Patient to follow up post discharge with Dr. Vincent Nurse practitioner note has been reviewed by physician. Signing provider agrees with the documented findings, assessment, and plan of care. Objective - Vital Signs Vital signs: Vital Signs Temp 97.9 F 10/06/22 11:25 Pulse 76 10/06/22 11:25 Resp 18 10/06/22 11:25 BP 143/68 10/06/22 11:25 Pulse Ox 94 L 10/06/22 11:25 FiO2 Intake & Output 10/05/22 10/06/22 10/06/22 18:59 06:59 18:59 Intake Total 354 110 120 Balance 354 110 120 Intake: IV 10 Invasive Line 2 10 Oral 354 100 120 Other: Voiding Method Toilet Toilet Toilet # Voids 1 2 2 # Bowel Movements 0 - Labs CBC & Chem 7: 10/06/22 08:26 10/06/22 08:26 Labs: Abnormal Lab Results - Last 24 Hours (Table) 10/06/22 10/06/22 Range/Units 08:26 08:26 Neutrophils # 8.0 H (1.3-7.7) k/uL Lymphocytes # 0.8 L (1.0-4.8) k/uL Sodium 136 L (137-145) mmol/L Creatinine 0.50 L (0.52-1.04) mg/dL Alkaline Phosphatase 154 H (38-126) U/L Total Protein 6.0 L (6.3-8.2) g/dL Albumin 3.4 L (3.5-5.0) g/dL
--- NOTE | 2022-10-06 18:55 | P.PN ---
Subjective Progress Note Date: 10/06/22 10/06/2022: Patient was seen for a follow-up. Patient is sitting comfortably in the recliner. Denies any headache. Family members were not present today. Patient continues to be severely aphasic with anarthria. Telemetry monitoring showing sinus rhythm. 10/05/2022: Patient initially seen by Dr. Amadou Dye. Please refer to his note for details. Patient is a 72-year-old right-handed female with history of stage IV lung cancer, came with global aphasia and muteness. Patient's daughter was present, who provided with history. On Wednesday evening 09/30/2022 at 7 PM, wh ile cutting vegetables, she stopped getting the jaycob and started drooling for 15 minutes. She was brought to the hospital and her speech returned back to baseline. She was sent home, and next day on at 9:30 AM, she stopped talking and has never regained speech yet. MRI of the brain revealed multiple bilateral hemispheric stroke, left slightly more than right. Patient has history of DVT 3 weeks ago and atrial fibrillation and was on Xarelto but appears failed. Patient was started on broad neck side yesterday. JESUS is pending. Patient's daughter was also present, who states that patient is cognitively intact. She understands everything, but cannot express herself which makes her very frustrated. Some of the workup during his hospital visit consisted of: Lipid panel triglycerides 79, cholesterol is 204, LDLs 128, HDL 59. CT head is reported as no acute intracranial process. I personally reviewed that a CT and there is no acute or subacute ischemia seen. There is no mass affect. CT angiography of the head and neck was reported as no evidence of dissection of the cervical internal carotid arteries or vertebral artery or any evidence of significant stenosis at the carotid bifurcation. No evidence of intracranial high-grade stenosis or intracranial aneurysm. Intracranial atherosclerosis of the internal carotid artery without hemodynamic stenosis. Right and increased size of left pleural effusion. There is a pleural sign in the left which could represent empyema. Persistent that scattered nodular opacity likely representing metastatic disease from the patient known malignancy. EKG is reported as sinus rhythm. Low QRS voltage URIne Drug screen is negative. MRI brain is reported as scattered foci of restricted diffusion compatible with acute/subacute CVA. Given multiple vascular distribution correlate for embolic phenomena. No abnormal postcontrast enhancement the, no evidence for mass. Nonspecific white matter changes likely secondary to chronic small vessel ischemic disease. I personally reviewed the MRI and I agree with the report. Patient has restriction diffusion over bilateral frontal left more than the right with right parietal occipital region The echo was reported as suboptimal acoustic windows. Contrast echo study performed. Borderline normal left ventricle systolic function septal bulge. There is septal and inferior basal hypokinesis. Routine EEG is normal. There is no focal slowing, epileptiform discharges or seizure on the EEG. Venous duplex of the upper and lower extremities negative Objective - Vital Signs Vital signs: Vital Signs Temp 97.8 F 10/06/22 16:08 Pulse 83 10/06/22 18:05 Resp 18 10/06/22 16:08 BP 154/75 10/06/22 18:05 Pulse Ox 94 L 10/06/22 16:08 FiO2 Intake & Output 10/05/22 10/06/22 10/06/22 18:59 06:59 18:59 Intake Total 354 110 120 Balance 354 110 120 Intake: IV 10 Invasive Line 2 10 Oral 354 100 120 Other: Voiding Method Toilet Toilet Toilet # Voids 1 2 2 # Bowel Movements 0 - Exam Patient is alert and awake, sitting in the recliner, appears comfortable. Patient has significant expressive aphasia. Not able to vocalize any intelligible speech. Not able to name any objects. Patient able to point correct objects like the window, the door and the ceiling. She cannot name any objects or repeat. Patient has right facial asymmetry, better than yesterday. Visual patel are full. Tongue protrudes the midline. Sensory to touch is equal, with no neglect on double simultaneous stimulation. No ataxia for [id number] testing bilaterally. Patient has right pronation with no drift. Muscle strength is normal in the arms and legs distally and proximally bilaterally. - Labs CBC & Chem 7: 10/07/22 07:47 10/07/22 07:47 Labs: Abnormal Lab Results - Last 24 Hours (Table) 10/06/22 10/06/22 Range/Units 08:26 08:26 Neutrophils # 8.0 H (1.3-7.7) k/uL Lymphocytes # 0.8 L (1.0-4.8) k/uL Sodium 136 L (137-145) mmol/L Creatinine 0.50 L (0.52-1.04) mg/dL Alkaline Phosphatase 154 H (38-126) U/L Total Protein 6.0 L (6.3-8.2) g/dL Albumin 3.4 L (3.5-5.0) g/dL Assessment and Plan Assessment: This is a 72-year-old woman who had the expressive aphasia and right facial weakness since 09/30/2022. Initially she presented to our facility the day prior to arrival and her symptoms has improved except some subtle right lower facial weakness but next morning, on the day of admission, she presented again with expressive aphasia, dysarthria with right facial weakness Acute ischemic stroke (over bilateral hemisphere: bilateral frontal L>R, right parietal and occipital region). NIH stroke scale is a 6. Currently is global aphasic, mute,. Stroke appears embolic in nature: Possible cardioembolic. Hx of a-fib but was on Xarelto recently. Unsure if has large PFO and with DVT it embolized to brain. History of left lung cancer History of right breast cancer History of recent DVT about 3 weeks ago and is on Xarelto Left Pleural effusion on CTA History of pleural effusion History of atrial fibrillation and in past was on anticoagulation then stopped then after DVT 3 weeks ago restarted it Plan: Routine EEG is normal. Patient now on Pradaxa since failed Xarelto. Also on Plavix. Recommend to pursue transesophageal echocardiogram to rule out any left atrial thrombus or a large PFO to assess whether the exact source of the stroke. The patient had a recent DVT and I'll not sure if the clot traveled and embolized to the brain versus was a cardioembolic from the A. fib. Suggest JESUS when patient able to tolerate. Continue Lipitor 40 mg daily at bedtime second stroke prophylaxis Continue neuro checks Cardiac monitoring PT OT and COURT TRANSCRIBER are consulted Cardiology is on board. Pulmonary team is consulted for pleural effusion and history of lung cancer We'll defer the rest of the medical management to primary team For DVT prophylaxis: Pradaxa.
--- NOTE | 2022-10-06 19:00 | P.PN ---
Subjective Progress Note Date: 10/06/22 Kat Kim, is a 72-year-old female who presented to [facility] emergency room with a chief complaint difficulty with her speech, and right facial drooping, patient presented to emergency room with similar complaints yesterday, at that time she was offered MRI and admission by [facility] room physician however she felt that she was improving and she opted to go home. However over the next several hours patient developed complete aphasia, she was brought back to the emergency room by her family. She was evaluated in the emergency room vital examination on presentation revealed a temperature of 99 pulse 84 respiration 18 blood pressure 160/87 pulse ox 94% on room air Laboratory data revealed a white blood count of 7.1 hemoglobin 14.6 platelet count 167 sodium 137 potassium 4.3 chloride 102 CO2 29 BUN 9 creatinine 0.56 urine analysis revealed no evidence of infection and urine toxicology screen was negative Testing in the emergency room revealed, computed tomography scan of the brain without contrast was done in the emergency room and revealed no acute intracranial process, CT angiogram of the brain done in the emergency room revealed no evidence of dissection of the cervical internal carotid arteries or vertebral arteries or any evidence of significant stenosis at the carotid bifurcation there was no evidence of intracranial high-grade stenosis or intracranial aneurysm Patient was admitted to medical floor for further evaluation and treatment, neurology consultation was requested Past medical history is significant for history of breast cancer, history of stacye ng cancer, history of atrial fibrillation, history of lower extremity DVT, patient was maintained on Xarelto At home On 10/02/2022. Patient is currently resting in room remains with difficulty in speech and right facial drooping. MRI of the brain was completed showing scattered foci of restricted diffusion compatible with acute or subacute CVA given multiple vascular distributions correlate for emboli phenomenon. Neurology services are following. Cardiology services also consulted. Current vital signs temp 98.1, heart rate 74, blood pressure 129/67 pulse ox of 94% on room air On 10/03/2022, patient was seen and examined on telemetry, case was discussed in details with Dr. Amadou López neurologist, patient is developing more difficulty with swallowing, recommendation from neurology is to proceed with JESUS, to rule out cardiac thrombus or PFO. However due to significant difficulty with swallowing, cardiology wanted to wait at this time on JESUS. Recommendation from neurology at this time is to proceed with upper and lower bilateral lower extremity Doppler to rule out acute DVT, and to start anticoagulation starting tomorrow. On 10/04/2022 patient is sitting comfortably in chair. Patient remains nonverbal. Pradaxa has been started per cardiology and neurology recommendations. Current vital signs temp 97.5, heart rate 77, respiratory rate 16, blood pressure 1 [id number] with pulse ox 93% on room air. Per cardiology at this time JESUS remains on hold due to difficulty in swallowing. On 10/05/2022 patient was seen and examined on the medical she is alert and oriented 3 in no apparent distress, she is sitting up in a chair, she still has significant facial drooping, she has complete aphasia, she tries to answer questions by nodding her head, she is still having significant difficulty with swallowing, cardiology note reviewed, no plans for JESUS at this time due to difficulty swallowing and the risk of aspiration, she was started on Pradaxa for anticoagulation, she is having difficulty swallowing the pill as it cannot be crushed. At this time will continue with physical therapy, occupational therapy, and speech therapy, will reassess in a.m. On 10/06/2022 patient was seen and examined the medical floor she is alert and oriented in no apparent distress, she is sitting up in a chair she still has complete aphasia, she is having difficulty swallowing, she is complaining of constipation, otherwise she denies any complaints there is no fever or chills no headache or dizziness no chest pain no shortness of breath no cough no nausea or vomiting no abdominal pain no diarrhea and no urinary symptoms. At this time, JESUS will be delayed until patient has better swallowing per cardiology, possibility of rehab admission discussed with patient however she is indicating that she wants to go home, possible discharge to home tomorrow if stable and no further recommendation from cardiology or neurology Objective - Vital Signs Vital signs: Vital Signs Temp 97.9 F 10/06/22 09:30 Pulse 77 10/06/22 09:30 Resp 18 10/06/22 09:30 BP 151/71 10/06/22 09:30 Pulse Ox 93 L 10/06/22 09:30 FiO2 Intake & Output 10/05/22 10/06/22 10/06/22 18:59 06:59 18:59 Intake Total 354 110 120 Balance 354 110 120 Intake: IV 10 Invasive Line 2 10 Oral 354 100 120 Other: Voiding Method Toilet Toilet # Voids 1 2 - Exam In general patient is alert and oriented, able to communicate by writing on board in no apparent distress HEENT head normocephalic and atraumatic Neck is supple no JVD no goiter no lymphadenopathy no carotid bruit Chest examination is clear to auscultation no crackles no wheezing Cardiac exam reveals regular heart sounds S1 and S2 no gallops no murmurs Abdomen is soft nontender no organomegaly with normal bowel sounds Extremity exam reveals no edema no cyanosis or clubbing Neurological examination reveals complete expressive aphasia, and right facial drooping otherwise no focal deficit - Labs CBC & Chem 7: 10/06/22 08:26 10/06/22 08:26 Labs: Abnormal Lab Results - Last 24 Hours (Table) 10/06/22 10/06/22 Range/Units 08:26 08:26 Neutrophils # 8.0 H (1.3-7.7) k/uL Lymphocytes # 0.8 L (1.0-4.8) k/uL Sodium 136 L (137-145) mmol/L Creatinine 0.50 L (0.52-1.04) mg/dL Alkaline Phosphatase 154 H (38-126) U/L Total Protein 6.0 L (6.3-8.2) g/dL Albumin 3.4 L (3.5-5.0) g/dL Assessment and Plan Plan: Expressive aphasia and right facial droop, likely related to acute ischemic stroke Underlying history of lung cancer Underlying history of breast cancer Previous history of DVT 3 weeks ago, maintained on Xarelto Underlying history of left pleural effusion History of atrial fibrillation At this time patient was seen and examined in the emergency room Home medications reviewed and reordered Cardiology, pulmonary and neurology service is following Patient started on Pradaxa per cardiology JESUS currenlty on hold per cardiology Echocardiogram was ordered Will follow closely
[2022-10-06] MEDS: ATORVASTATIN 40 MG TAB PO SCH (20:41)
[2022-10-07] MEDS: SODIUM CHLORIDE 0.9% 1,000 ML IV SCH (06:28)
[2022-10-07] MEDS: carvediloL 3.125 MG TAB PO SCH ×2 (07:00→16:26)
[2022-10-07 08:38] LABS: Basophils % (A) 0 %; Eosinophils # (A) 0.1 k/uL (0-0.7); Eosinophils % (A) 1 %; HCT 42.7 % (34.0-46.0); HGB 14.3 gm/dL (11.4-16.0); Lymphocytes # (A) 1.1 k/uL (1.0-4.8); Lymphocytes % (A) 11 %; MCH 30.2 pg (25.0-35.0); MCHC 33.5 g/dL (31.0-37.0); MCV 90.1 fL (80.0-100.0); Mean Platelet Volume 8.2; Monocytes # (A) 0.8 k/uL (0-1.0); Monocytes % (A) 8 %; Neutrophils # (A) 8.3 k/uL (1.3-7.7); Neutrophils % (A) 79 %; Platelet Count 225 k/uL (150-450); RBC 4.73 m/uL (3.80-5.40); RDW 13.5 % (11.5-15.5); WBC 10.4 k/uL (3.8-10.6)
[2022-10-07 09:05] LABS: ALT 12 U/L (4-34); AST 18 U/L (14-36); African American GFR (CKD) >90 (>60 ml/min/1.73 sqM); Albumin 3.6 g/dL (3.5-5.0); Alkaline Phosphatase 167 U/L (38-126); Anion Gap 8 mmol/L; Blood Urea Nitrogen 14 mg/dL (7-17); Carbon Dioxide 30 mmol/L (22-30); Chloride 101 mmol/L (98-107); Glucose 87 mg/dL (74-99); Non-African American GFR(CKD) >90 (>60 ml/min/1.73 sqM); Potassium 3.8 mmol/L (3.5-5.1); Sodium 139 mmol/L (137-145); Total Bilirubin 0.7 mg/dL (0.2-1.3); Total Protein 6.4 g/dL (6.3-8.2)
[2022-10-07] MEDS: OSIMERTINIB 80 MG PO SCH (09:17)
[2022-10-07] MEDS: ANASTROZOLE 1 MG TAB PO SCH (09:17)
[2022-10-07] MEDS: lisinopriL 5 MG TAB PO SCH (09:17)
[2022-10-07] MEDS: CLOPIDOGREL 75 MG TAB PO SCH (09:17)
[2022-10-07] MEDS: DABIGATRAN 150 MG CAP PO SCH ×2 (09:17→21:43)
[2022-10-07] MEDS: DOCUSATE 100 MG CAP PO SCH ×2 (10:07→21:43)
--- NOTE | 2022-10-07 10:17 | P.PN ---
Subjective Progress Note Date: 10/07/22 Kat Kim, is a 72-year-old female who presented to [facility] emergency room with a chief complaint difficulty with her speech, and right facial drooping, patient presented to emergency room with similar complaints yesterday, at that time she was offered MRI and admission by [facility] room physician however she felt that she was improving and she opted to go home. However over the next several hours patient developed complete aphasia, she was brought back to the emergency room by her family. She was evaluated in the emergency room vital examination on presentation revealed a temperature of 99 pulse 84 respiration 18 blood pressure 160/87 pulse ox 94% on room air Laboratory data revealed a white blood count of 7.1 hemoglobin 14.6 platelet count 167 sodium 137 potassium 4.3 chloride 102 CO2 29 BUN 9 creatinine 0.56 urine analysis revealed no evidence of infection and urine toxicology screen was negative Testing in the emergency room revealed, computed tomography scan of the brain without contrast was done in the emergency room and revealed no acute intracranial process, CT angiogram of the brain done in the emergency room revealed no evidence of dissection of the cervical internal carotid arteries or vertebral arteries or any evidence of significant stenosis at the carotid bifurcation there was no evidence of intracranial high-grade stenosis or intracranial aneurysm Patient was admitted to medical floor for further evaluation and treatment, neurology consultation was requested Past medical history is significant for history of breast cancer, history of stacey ng cancer, history of atrial fibrillation, history of lower extremity DVT, patient was maintained on Xarelto At home On 10/02/2022. Patient is currently resting in room remains with difficulty in speech and right facial drooping. MRI of the brain was completed showing scattered foci of restricted diffusion compatible with acute or subacute CVA given multiple vascular distributions correlate for emboli phenomenon. Neurology services are following. Cardiology services also consulted. Current vital signs temp 98.1, heart rate 74, blood pressure 129/67 pulse ox of 94% on room air On 10/03/2022, patient was seen and examined on telemetry, case was discussed in details with Dr. Amadou López neurologist, patient is developing more difficulty with swallowing, recommendation from neurology is to proceed with JESUS, to rule out cardiac thrombus or PFO. However due to significant difficulty with swallowing, cardiology wanted to wait at this time on JESUS. Recommendation from neurology at this time is to proceed with upper and lower bilateral lower extremity Doppler to rule out acute DVT, and to start anticoagulation starting tomorrow. On 10/04/2022 patient is sitting comfortably in chair. Patient remains nonverbal. Pradaxa has been started per cardiology and neurology recommendations. Current vital signs temp 97.5, heart rate 77, respiratory rate 16, blood pressure 1 5476 with pulse ox 93% on room air. Per cardiology at this time JESUS remains on hold due to difficulty in swallowing. On 10/05/2022 patient was seen and examined on the medical she is alert and oriented 3 in no apparent distress, she is sitting up in a chair, she still has significant facial drooping, she has complete aphasia, she tries to answer questions by nodding her head, she is still having significant difficulty with swallowing, cardiology note reviewed, no plans for JESUS at this time due to difficulty swallowing and the risk of aspiration, she was started on Pradaxa for anticoagulation, she is having difficulty swallowing the pill as it cannot be crushed. At this time will continue with physical therapy, occupational therapy, and speech therapy, will reassess in a.m. On 10/06/2022 patient was seen and examined the medical floor she is alert and oriented in no apparent distress, she is sitting up in a chair she still has complete aphasia, she is having difficulty swallowing, she is complaining of constipation, otherwise she denies any complaints there is no fever or chills no headache or dizziness no chest pain no shortness of breath no cough no nausea or vomiting no abdominal pain no diarrhea and no urinary symptoms. At this time, JESUS will be delayed until patient has better swallowing per cardiology, possibility of rehab admission discussed with patient however she is indicating that she wants to go home, possible discharge to home tomorrow if stable and no further recommendation from cardiology or neurology On 10/07/2022 patient is currently sitting in chair. Patient's son at bedside. Per patient's son patient had a fall this a.m. due to new onset of weakness to her right arm. Patient denies any injuries from fall but does report that the right arm weakness started last night. This is new per son. At this time will do a head CT and discussed with nursing staff to notify neurology services. patient denies chest pain or shortness of breath. Patient denies nausea vomiting or diarrhea. Patient denies any urinary burning or frequency. Objective - Vital Signs Vital signs: Vital Signs Temp 97.8 F 10/07/22 04:00 Pulse 79 10/07/22 09:14 Resp 16 10/07/22 09:14 BP 145/79 10/07/22 09:14 Pulse Ox 97 10/07/22 09:14 FiO2 Intake & Output 10/06/22 10/07/22 10/07/22 18:59 06:59 18:59 Intake Total 120 100 Balance 120 100 Weight 58.7 kg Intake: Oral 120 100 Other: Voiding Method Toilet # Voids 2 1 # Bowel Movements 0 - Exam In general patient is alert and oriented, able to communicate by writing on board in no apparent distress HEENT head normocephalic and atraumatic Neck is supple no JVD no goiter no lymphadenopathy no carotid bruit Chest examination is clear to auscultation no crackles no wheezing Cardiac exam reveals regular heart sounds S1 and S2 no gallops no murmurs Abdomen is soft nontender no organomegaly with normal bowel sounds Extremity exam reveals no edema no cyanosis or clubbing Neurological examination reveals complete expressive aphasia, and right facial drooping otherwise no focal deficit - Labs CBC & Chem 7: 10/07/22 07:47 10/07/22 07:47 Labs: Abnormal Lab Results - Last 24 Hours (Table) 10/07/22 10/07/22 Range/Units 07:47 07:47 Neutrophils # 8.3 H (1.3-7.7) k/uL Alkaline Phosphatase 167 H (38-126) U/L Assessment and Plan Plan: Expressive aphasia and right facial droop, likely related to acute ischemic stroke Right arm weakness. Will order stat head CT and notify neurology services Underlying history of lung cancer Underlying history of breast cancer Previous history of DVT 3 weeks ago, maintained on Xarelto Underlying history of left pleural effusion History of atrial fibrillation At this time patient was seen and examined in the emergency room Home medications reviewed and reordered Cardiology, pulmonary and neurology service is following Patient started on Pradaxa per cardiology JESUS currenlty on hold per cardiology Echocardiogram was ordered Will follow closely
--- NOTE | 2022-10-07 11:34 | CT ---
EXAMINATION TYPE: CT brain wo con DATE OF EXAM: 10/07/2022 HISTORY: New RT arm weakness. Hx stroke CT DLP: 1143.4 mGycm. Automated Exposure Control for Dose Reduction was Utilized. TECHNIQUE: CT scan of the head is performed without contrast. COMPARISON: CT brain 6 days ago. FINDINGS: There is no acute intracranial hemorrhage or midline shift identified. Ventricles and sul ci are within normal limits in size for patient's age. There are a few areas of low-attenuation in t he deep and periventricular white matter redemonstrated. More defined approximate 2.0 cm hypodense a roxana left frontal lobe is seen on current study axial image 25. Better visualize near 1.0 cm hypodense area right parietal region axial image 27. Hyperostosis frontalis redemonstrated The globes are inta ct and the visualized sinuses are clear. IMPRESSION: No acute intracranial hemorrhage or midline shift. Evolving acute infarcts right parieta l lobe and left frontal lobes are suspected. A [place] level critical message alert has been initiated for Tejinder Taylor MD via the [employer] Critical Results System on 10/07/2022 11:31 AM. This message alert has been sent to Tejinder Taylor MD via the preferences provided by the clinician for the receipt of Radiology Critical Findings. ObjectWay e ID [id number].
--- NOTE | 2022-10-07 11:35 | P.PN ---
Subjective Progress Note Date: 10/07/22 HISTORY OF PRESENT ILLNESS: This is a 72-year-old female who follows in the office with Dr. Vincent. Patient is admitted to the hospital secondary to acute embolic CVA. Patient examined this morning. She is sitting up in the chair. Patient is nonverbal. She denies any chest pain or pressure. Denies any shortness of breath. Vital signs are stable. 10/07/2022 Patient examined this morning. Patient denies chest pain or pressure. She denies shortness of breath. Vital signs are stable. She remains nonverbal. Patient sustained a fall this morning and CT of the head is pending. Vital signs stable. PHYSICAL EXAM: VITAL SIGNS: Reviewed. GENERAL: Well-developed in no acute distress. NECK: Supple. No JVD or thyromegaly LUNGS: Respirations even and unlabored. Lungs essentially clear to auscultation bilaterally. HEART: Regular rate and rhythm. S1 and S2 heard. EXTREMITIES: Normal range of motion. No clubbing or cyanosis. Peripheral pulses intact. No lower extremity edema ASSESSMENT: Acute embolic CVA Expressive aphasia History of DVT on Xarelto outpatient Coronary artery disease with previous stenting of the RCA Cardiomyopathy, EF 45-50% with inferior septal and inferior basal hypokinesis Hypertension Hyperlipidemia History of breast cancer History of recurrent pleural effusions Remote tobacco use PLAN: Patient has been switched from Xarelto to Pradaxa No plans for JESUS at this time Continue additional cardiac medications Patient scheduled to undergo CT of the head today. Neurology following. Patient to follow up post discharge with Dr. Vincent We will sign off. Please reconsult if needed Nurse practitioner note has been reviewed by physician. Signing provider agrees with the documented findings, assessment, and plan of care. Objective - Vital Signs Vital signs: Vital Signs Temp 97.8 F 10/07/22 04:00 Pulse 79 10/07/22 09:14 Resp 16 10/07/22 09:14 BP 145/79 10/07/22 09:14 Pulse Ox 97 10/07/22 09:14 FiO2 Intake & Output 10/06/22 10/07/22 10/07/22 18:59 06:59 18:59 Intake Total 120 100 Balance 120 100 Weight 58.7 kg Intake: Oral 120 100 Other: Voiding Method Toilet Toilet # Voids 2 1 # Bowel Movements 0 - Labs CBC & Chem 7: 10/07/22 07:47 10/07/22 07:47 Labs: Abnormal Lab Results - Last 24 Hours (Table) 10/07/22 10/07/22 Range/Units 07:47 07:47 Neutrophils # 8.3 H (1.3-7.7) k/uL Alkaline Phosphatase 167 H (38-126) U/L
--- NOTE | 2022-10-07 14:22 | P.PN ---
Subjective Progress Note Date: 10/07/22 10/07/2022: Patient has developed new focal symptoms as of this morning. Patient has developed right arm weakness, which is very noticeable. This is an acute change. Patient continues to be severely expressively aphasic. Her comprehension appears to be slightly worse today. Patient admits to having headache. 10/06/2022: Patient was seen for a follow-up. Patient is sitting comfortably in the recliner. Denies any headache. Family members were not present today. Patient continues to be severely aphasic with anarthria. Telemetry monitoring showing sinus rhythm. 10/05/2022: Patient initially seen by Dr. Amadou Dye. Please refer to his note for details. Patient is a 72-year-old right-handed female with history of stage IV lung cancer, came with global aphasia and muteness. Patient's daughter was present, who provided with history. On Wednesday evening 09/30/2022 at 7 PM, while cutting vegetables, she stopped getting the jaycob and started drooling for 15 minutes. She was brought to the hospital and her speech returned back to baseline. She was sent home, and next day on at 9:30 AM, she stopped talking and has never regained speech yet. MRI of the brain revealed multiple bilateral hemispheric stroke, left slightly more than right. Patient has history of DVT 3 weeks ago and atrial fibrillation and was on Xarelto but appears failed. Patient was started on broad neck side yesterday. JESUS is pending. Patient's daughter was also present, who states that patient is cognitively intact. She understands everything, but cannot express herself which makes her very frustrated. Some of the workup during his hospital visit consisted of: Lipid panel triglycerides 79, cholesterol is 204, LDLs 128, HDL 59. CT head is reported as no acute intracranial process. I personally reviewed that a CT and there is no acute or subacute ischemia seen. There is no mass affect. CT angiography of the head and neck was reported as no evidence of dissection of the cervical internal carotid arteries or vertebral artery or any evidence of significant stenosis at the carotid bifurcation. No evidence of intracranial high-grade stenosis or intracranial aneurysm. Intracranial atherosclerosis of the internal carotid artery without hemodynamic stenosis. Right and increased size of left pleural effusion. There is a pleural sign in the left which could represent empyema. Persistent that scattered nodular opacity likely representing metastatic disease from the patient known malignancy. EKG is reported as sinus rhythm. Low QRS voltage [place] Drug screen is negative. MRI brain is reported as scattered foci of restricted diffusion compatible with acute/subacute CVA. Given multiple vascular distribution correlate for embolic phenomena. No abnormal postcontrast enhancement the, no evidence for mass. Nonspecific white matter changes likely secondary to chronic small vessel ischemic disease. I personally reviewed the MRI and I agree with the report. Patient has restriction diffusion over bilateral frontal left more than the right with right parietal occipital region The echo was reported as suboptimal acoustic windows. Contrast echo study performed. Borderline normal left ventricle systolic function septal bulge. There is septal and inferior basal hypokinesis. Routine EEG is normal. There is no focal slowing, epileptiform discharges or seizure on the EEG. Venous duplex of the upper and lower extremities negative Objective - Vital Signs Vital signs: Vital Signs Temp 97.8 F 10/07/22 04:00 Pulse 83 10/07/22 11:36 Resp 16 10/07/22 11:36 BP 144/78 10/07/22 11:36 Pulse Ox 97 10/07/22 11:40 FiO2 Intake & Output 10/06/22 10/07/22 10/07/22 18:59 06:59 18:59 Intake Total 120 100 Balance 120 100 Weight 58.7 kg Intake: Oral 120 100 Other: Voiding Method Toilet Toilet # Voids 2 1 # Bowel Movements 0 - Exam Patient is alert and awake, sitting in the recliner, appears comfortable. Patient has significant expressive aphasia. Not able to vocalize any speech at all. Not able to name any objects. Patient able to point correct objects like the window, the door and the ceiling. She cannot name any objects or repeat. Patient has right facial asymmetry, slightly worse than yesterday. Visual patel are full on confrontation. Tongue protrudes the midline. Sensory to touch is decreased on the right side it appears. No ataxia for [id number] testing bilaterally. Patient has significant right pronator drift, and the arm hits the bed. Left arm is very strong. Right cardiovascular surgeon is 2, deltoid 4, biceps 4, triceps 4+. Strength is normal in bilateral lower limbs. - Labs CBC & Chem 7: 10/07/22 07:47 10/07/22 07:47 Labs: Abnormal Lab Results - Last 24 Hours (Table) 10/07/22 10/07/22 Range/Units 07:47 07:47 Neutrophils # 8.3 H (1.3-7.7) k/uL Alkaline Phosphatase 167 H (38-126) U/L Assessment and Plan Assessment: Recurrent ischemic strokes. Patient apparently had a new stroke overnight, with new right arm paresis. Her right facial droop and aphasia also seems to have gotten worse. Acute ischemic stroke (over bilateral hemisphere: bilateral frontal L>R, right parietal and occipital region). Stroke appears embolic in nature: Probable cardioembolic. Patient has failed Xarelto, now Pradaxa as well. Unsure if has large PFO and with DVT it embolized to brain. History of left lung cancer History of right breast cancer History of recent DVT about 3 weeks ago and was on Xarelto Left Pleural effusion on CTA History of pleural effusion History of atrial fibrillation and in past was on anticoagulation then stopped then after DVT 3 weeks ago restarted it Plan: Patient had a new ischemic stroke overnight. CT head revealed no acute hemorrhage. Evolving acute infarcts right parietal lobe and left frontal lobes are suspected. On my review, the left frontal lobe ischemic stroke appears to be worse as compared to the MRI from 10/01/2022. Check stat CTA of head and neck, to rule out large vessel occlusion. Patient has failed Xarelto, and now also Pradaxa. Patient is also on Plavix. Recommend JESUS to evaluate for embolic source. Discussed with primary physician. Continue Lipitor 40 mg daily at bedtime second stroke prophylaxis Routine EEG normal. Continue neuro checks Cardiac monitoring, with telemetry showing sinus rhythm at this time. PT OT and BAND MAKER are consulted Cardiology is on board. Pulmonary team is consulted for pleural effusion and history of lung cancer We'll defer the rest of the medical management to primary team For DVT prophylaxis: Pradaxa. Addendum: CTA of head and neck showed no significant change from recent CTA study. No LVO. Recommend JESUS to evaluate for embolic source. Discussed with patient's son in detail. Time with Patient: Greater than 30
--- NOTE | 2022-10-07 14:22 | CT ---
EXAMINATION TYPE: CT angio head neck DATE OF EXAM: 10/07/2022 HISTORY: Acute stroke, new deficits COMPARISON: CTA [address] DLP: 567.1 mGycm. Automated Exposure Control for Dose Reduction was Utilized. TECHNIQUE: CTA scan of the head and neck is performed without and with IV Contrast, patient injected with 65 ml mL of Isovue 370, axial images are obtained, coronal and sagittal reformatted images are reviewed. 3D reconstructed images are created on an independent workstation and reviewed. FINDINGS: Carotid/Vascular Structures: Satisfactory enhancement of the central pulmonary arteries. There is bov ine type aortic arch redemonstrated which is normal variant. Mild to moderate peripheral plaque in th e aortic arch is redemonstrated. No significant stenosis at aortic arch origin. No significant plaque or stenosis along the common carotid arteries bilaterally. Mild peripheral plaque bilateral carotid bulb level redemonstrated. Patent external carotid arteries bilaterally without significant stenosis. There are codominant vertebral arteries patent to the basilar junction. No significant focal stenosis or aneurysm in the posterior circulation. There is patent right posterior communicating artery. Ther e is hypoplastic left posterior communicating artery. Images of the anterior circulation show patent anterior communicating artery. There is no significant focal stenosis or aneurysm identified. [id number] calcified plaque distal internal carotid art eries bilaterally is redemonstrated. Other: Persistent 1.8 cm low dense right thyroid nodule coronal image 43. Persistent scoliotic curvature to the cervical thoracic spine. Mild to moderate spurring and disc spa ce narrowing C5-C6 level is redemonstrated. At least small to moderate-sized bilateral pleural fluid collections are redemonstrated. One on the l eft appears nonsimple. Possible empyema. No significant change from prior. Patchy nodular opacities t hroughout the visualized upper lungs is redemonstrated and nonspecific. IMPRESSION: No significant change from recent CTA study. NASCET criteria was used in interpretation of this exam?
[2022-10-07] MEDS: ATORVASTATIN 40 MG TAB PO SCH (21:42)
[2022-10-08] MEDS: OSIMERTINIB 80 MG PO SCH (10:15)
[2022-10-08] MEDS: CLOPIDOGREL 75 MG TAB PO SCH (10:15)
[2022-10-08] MEDS: ANASTROZOLE 1 MG TAB PO SCH (10:15)
[2022-10-08] MEDS: DOCUSATE 100 MG CAP PO SCH ×3 (10:15→22:03)
[2022-10-08] MEDS: carvediloL 3.125 MG TAB PO SCH ×2 (10:15→16:54)
[2022-10-08] MEDS: lisinopriL 5 MG TAB PO SCH (10:15)
[2022-10-08] MEDS: DABIGATRAN 150 MG CAP PO SCH ×2 (10:15→21:50)
--- NOTE | 2022-10-08 13:15 | P.PN ---
Subjective Progress Note Date: 10/08/22 The patient is known to me and she was last seen is 10/07/2022 and it appears has recurrent ischemic stroke and had right arm paresis. Patient is refusing JESUS. Objective - Vital Signs Vital signs: Vital Signs Temp 98.2 F 10/08/22 08:08 Pulse 78 10/08/22 08:08 Resp 18 10/08/22 08:08 BP 154/79 10/08/22 08:08 Pulse Ox 98 10/08/22 08:26 FiO2 Intake & Output 10/07/22 10/08/22 10/08/22 18:59 06:59 18:59 Intake Total 120 110 Balance 120 110 Intake: IV 20 10 Invasive Line 2 20 10 Oral 100 100 Other: Voiding Method Toilet Bedpan Bedpan # Voids 1 - Exam Neuro: Patient is awake alert. She has global aphasia. She'll follow few simple commands (such as thumbs up, sticking out her tongue and wiggling her toes). As stated earlier has global aphasia and felt more expresive. Cranial nerve: Visual patel assessment is hard to assess because of her cooperation. EOM she's tracking throughout the room. Patient has right lower facial droop that's moderate in severity. Patient is mute. Motor: The strength is right upper extremity is 3-4/5. Otherwise 5/5 throughout. Some of the workup during his hospital visit consisted of: Lipid panel triglycerides 79, cholesterol is 204, LDLs 128, HDL 59. CT head is reported as no acute intracranial process. I personally reviewed that a CT and there is no acute or subacute ischemia seen. There is no mass affect. CT angiography of the head and neck was reported as no evidence of dissection of the cervical internal carotid arteries or vertebral artery or any evidence of s ignificant stenosis at the carotid bifurcation. No evidence of intracranial high-grade stenosis or intracranial aneurysm. Intracranial atherosclerosis of the internal carotid artery without hemodynamic stenosis. Right and increased size of left pleural effusion. There is a pleural sign in the left which could represent empyema. Persistent that scattered nodular opacity likely representing metastatic disease from the patient known malignancy. EKG is reported as sinus rhythm. Low QRS voltage [facility] Drug screen is negative. MRI brain is reported as scattered foci of restricted diffusion compatible with acute/subacute CVA. Given multiple vascular distribution correlate for embolic phenomena. No abnormal postcontrast enhancement the, no evidence for mass. Nonspecific white matter changes likely secondary to chronic small vessel ischemic disease. I personally reviewed the MRI and I agree with the report. Patient has restriction diffusion over bilateral frontal left more than the r ight with right parietal occipital region The echo was reported as suboptimal acoustic windows. Contrast echo study performed. Borderline normal left ventricle systolic function septal bulge. There is septal and inferior basal hypokinesis. Routine EEG is normal. There is no focal slowing, epileptiform discharges or seizure on the EEG. Venous duplex of the upper and lower extremities negative - Labs CBC & Chem 7: 10/07/22 07:47 10/07/22 07:47 Assessment and Plan Assessment: This is a 72-year-old woman who had the expressive aphasia and right facial weakness since 09/30/2022. Initially she presented to our facility yesterday and her symptoms has improved except some subtle right lower facial weakness but today as she presented again with expressive aphasia, dysarthria with right facial weakness Recurrent ischemic strokes. Patient apparently had a new stroke with new right arm paresis. Her right facial droop and aphasia also seems to have gotten worse. Acute ischemic stroke (over bilateral hemisphere: bilateral frontal L>R, right parietal and occipital region). Stroke appears embolic in nature: Probable cardioembolic. Patient has failed Xarelto, now Pradaxa as well. Unsure if has large PFO and with DVT it embolized to brain. History of left lung cancer History of right breast cancer History of recent DVT about 3 weeks ago and was on Xarelto Left Pleural effusion on CTA History of pleural effusion History of atrial fibrillation and in past was on anticoagulation then stopped then after DVT 3 weeks ago restarted it Plan: Patient had a new ischemic stroke recently. CT head revealed no acute hemorrhage. Evolving acute infarcts right parietal lobe and left frontal lobes are suspected. On my review, the left frontal lobe ischemic stroke appears to be worse as compared to the MRI from 10/01/2022. CTA of head and neck showed no significant change from recent CTA study. No LVO. Patient has failed Xarelto, and now also Pradaxa. Patient is also on Plavix. Recommend JESUS to evaluate for embolic source. Continue Lipitor 40 mg daily at bedtime second stroke prophylaxis Continue neuro checks Cardiac monitoring, with telemetry showing sinus rhythm at this time. PT OT and DEBT COLLECTION SPECIALIST are consulted Cardiology is on board. JESUS is reconsulted. Patient is refusing JESUS. Pulmonary team is consulted for pleural effusion and history of lung cancer We'll defer the rest of the medical management to primary team For DVT prophylaxis: Pradaxa. Discussed case with Cardiology N.P. and his nurse. Time with Patient: Less than 30
--- NOTE | 2022-10-08 13:26 | P.PN ---
Subjective Progress Note Date: 10/08/22 HISTORY OF PRESENT ILLNESS: This is a 72-year-old female who follows in the office with Dr. Vincent. Patient is admitted to the hospital secondary to acute embolic CVA. Patient examined this morning. She is sitting up in the chair. Patient is nonverbal. She denies any chest pain or pressure. Denies any shortness of breath. Vital signs are stable. 10/07/2022 Patient examined this morning. Patient denies chest pain or pressure. She denies shortness of breath. Vital signs are stable. She remains nonverbal. Patient sustained a fall this morning and CT of the head is pending. Vital signs stable. 10/08/2022 Cardiology was reconsulted yesterday per neurology requesting JESUS. Patient examined this morning at the bedside. She denies chest pain or pressure. Denies shortness of breath. Continues to have weakness of her right upper extremity. She is able to nod her head appropriately to questions. Explained JESUS procedure and patient is refusing to have this completed. PHYSICAL EXAM: VITAL SIGNS: Reviewed. GENERAL: Well-developed in no acute distress. NECK: Supple. No JVD or thyromegaly LUNGS: Respirations even and unlabored. Lungs essentially clear to auscultation bilaterally. HEART: Regular rate and rhythm. S1 and S2 heard. EXTREMITIES: Normal range of motion. No clubbing or cyanosis. Peripheral pulses intact. No lower extremity edema ASSESSMENT: Acute embolic CVA Expressive aphasia History of DVT on Xarelto outpatient Coronary artery disease with previous stenting of the RCA Cardiomyopathy, EF 45-50% with inferior septal and inferior basal hypokinesis Hypertension Hyperlipidemia History of breast cancer History of recurrent pleural effusions Remote tobacco use PLAN: Cardiology was reconsulted yesterday per neurology requesting JESUS. Patient is refusing to have this completed. If patient changes her mind, may reconsult cardiology. Otherwise we will sign off. Nurse practitioner note has been reviewed by physician. Signing provider agrees with the documented findings, assessment, and plan of care. Objective - Vital Signs Vital signs: Vital Signs Temp 98.2 F 10/08/22 08:08 Pulse 78 10/08/22 08:08 Resp 18 10/08/22 08:08 BP 154/79 10/08/22 08:08 Pulse Ox 98 10/08/22 08:26 FiO2 Intake & Output 0510/08/22 10/08/22 18:59 06:59 18:59 Intake Total 120 110 Balance 120 110 Intake: IV 20 10 Invasive Line 2 20 10 Oral 100 100 Other: Voiding Method Toilet Bedpan Bedpan # Voids 1 - Labs CBC & Chem 7: 10/07/22 07:47 10/07/22 07:47
--- NOTE | 2022-10-08 17:22 | P.PN ---
Subjective Progress Note Date: 10/08/22 Kat Kim, is a 72-year-old female who presented to [facility] emergency room with a chief complaint difficulty with her speech, and right facial drooping, patient presented to emergency room with similar complaints yesterday, at that time she was offered MRI and admission by [facility] room physician however she felt that she was improving and she opted to go home. However over the next several hours patient developed complete aphasia, she was brought back to the emergency room by her family. She was evaluated in the emergency room vital examination on presentation revealed a temperature of 99 pulse 84 respiration 18 blood pressure 160/87 pulse ox 94% on room air Laboratory data revealed a white blood count of 7.1 hemoglobin 14.6 platelet count 167 sodium 137 potassium 4.3 chloride 102 CO2 29 BUN 9 creatinine 0.56 urine analysis revealed no evidence of infection and urine toxicology screen was negative Testing in the emergency room revealed, computed tomography scan of the brain without contrast was done in the emergency room and revealed no acute intracranial process, CT angiogram of the brain done in the emergency room revealed no evidence of dissection of the cervical internal carotid arteries or vertebral arteries or any evidence of significant stenosis at the carotid bifurcation there was no evidence of intracranial high-grade stenosis or intracranial aneurysm Patient was admitted to medical floor for further evaluation and treatment, neurology consultation was requested Past medical history is significant for history of breast cancer, history of stacey ng cancer, history of atrial fibrillation, history of lower extremity DVT, patient was maintained on Xarelto At home On 10/02/2022. Patient is currently resting in room remains with difficulty in speech and right facial drooping. MRI of the brain was completed showing scattered foci of restricted diffusion compatible with acute or subacute CVA given multiple vascular distributions correlate for emboli phenomenon. Neurology services are following. Cardiology services also consulted. Current vital signs temp 98.1, heart rate 74, blood pressure 129/67 pulse ox of 94% on room air On 10/03/2022, patient was seen and examined on telemetry, case was discussed in details with Dr. Amadou López neurologist, patient is developing more difficulty with swallowing, recommendation from neurology is to proceed with JESUS, to rule out cardiac thrombus or PFO. However due to significant difficulty with swallowing, cardiology wanted to wait at this time on JESUS. Recommendation from neurology at this time is to proceed with upper and lower bilateral lower extremity Doppler to rule out acute DVT, and to start anticoagulation starting tomorrow. On 10/04/2022 patient is sitting comfortably in chair. Patient remains nonverbal. Pradaxa has been started per cardiology and neurology recommendations. Current vital signs temp 97.5, heart rate 77, respiratory rate 16, blood pressure 1 5476 with pulse ox 93% on room air. Per cardiology at this time JESUS remains on hold due to difficulty in swallowing. On 10/05/2022 patient was seen and examined on the medical she is alert and oriented 3 in no apparent distress, she is sitting up in a chair, she still has significant facial drooping, she has complete aphasia, she tries to answer questions by nodding her head, she is still having significant difficulty with swallowing, cardiology note reviewed, no plans for JESUS at this time due to difficulty swallowing and the risk of aspiration, she was started on Pradaxa for anticoagulation, she is having difficulty swallowing the pill as it cannot be crushed. At this time will continue with physical therapy, occupational therapy, and speech therapy, will reassess in a.m. On 10/06/2022 patient was seen and examined the medical floor she is alert and oriented in no apparent distress, she is sitting up in a chair she still has complete aphasia, she is having difficulty swallowing, she is complaining of constipation, otherwise she denies any complaints there is no fever or chills no headache or dizziness no chest pain no shortness of breath no cough no nausea or vomiting no abdominal pain no diarrhea and no urinary symptoms. At this time, JESUS will be delayed until patient has better swallowing per cardiology, possibility of rehab admission discussed with patient however she is indicating that she wants to go home, possible discharge to home tomorrow if stable and no further recommendation from cardiology or neurology On 10/07/2022 patient is currently sitting in chair. Patient's son at bedside. Per patient's son patient had a fall this a.m. due to new onset of weakness to her right arm. Patient denies any injuries from fall but does report that the right arm weakness started last night. This is new per son. At this time will do a head CT and discussed with nursing staff to notify neurology services. patient denies chest pain or shortness of breath. Patient denies nausea vomiting or diarrhea. Patient denies any urinary burning or frequency. On 10/08/2022 patient was seen and examined on the telemetry floor she is alert responsive in no apparent distress she is still completely aphasic, she is answering questions by nodding her head, she is still having right sided facial drooping and difficulty swallowing, she also now has complete paralysis of the right upper extremity, neurology are following closely, they recommended JESUS however per their notes patient has refused to complete test. Medication were reviewed will continue with current management will discuss with neurology further treatment steps. Objective - Vital Signs Vital signs: Vital Signs Temp 98.2 F 10/08/22 08:08 Pulse 78 10/08/22 08:08 Resp 18 10/08/22 08:08 BP 154/79 10/08/22 08:08 Pulse Ox 98 10/08/22 08:26 FiO2 Intake & Output 10/07/22 10/08/22 10/08/22 18:59 06:59 18:59 Intake Total 120 110 Balance 120 110 Intake: IV 20 10 Invasive Line 2 20 10 Oral 100 100 Other: Voiding Method Toilet Bedpan Bedpan # Voids 1 - Exam In general patient is alert and oriented, able to communicate by writing on board in no apparent distress HEENT head normocephalic and atraumatic Neck is supple no JVD no goiter no lymphadenopathy no carotid bruit Chest examination is clear to auscultation no crackles no wheezing Cardiac exam reveals regular heart sounds S1 and S2 no gallops no murmurs Abdomen is soft nontender no organomegaly with normal bowel sounds Extremity exam reveals no edema no cyanosis or clubbing Neurological examination reveals complete expressive aphasia, and right facial drooping otherwise no focal deficit - Labs CBC & Chem 7: 10/07/22 07:47 10/07/22 07:47 Labs: Abnormal Lab Results - Last 24 Hours (Table) 10/07/22 Range/Units 07:47 Alkaline Phosphatase 167 H (38-126) U/L Assessment and Plan Plan: Expressive aphasia and right facial droop, likely related to acute ischemic stroke Right arm weakness. Will order stat head CT and notify neurology services Underlying history of lung cancer Underlying history of breast cancer Previous history of DVT 3 weeks ago, maintained on Xarelto Underlying history of left pleural effusion History of atrial fibrillation At this time patient was seen and examined in the emergency room Home medications reviewed and reordered Cardiology, pulmonary and neurology service is following Patient started on Pradaxa per cardiology JESUS currenlty on hold per cardiology Echocardiogram was ordered Will follow closely
[2022-10-08 21:06] LABS: Glucose,Whole Blood 115 mg/dL (70-110)
[2022-10-08] MEDS: ATORVASTATIN 40 MG TAB PO SCH (21:51)
[2022-10-09] MEDS: carvediloL 3.125 MG TAB PO SCH ×2 (06:35→17:09)
--- NOTE | 2022-10-09 09:42 | P.PN ---
Subjective Progress Note Date: 10/09/22 Kat Kim, is a 72-year-old female who presented to [facility] emergency room with a chief complaint difficulty with her speech, and right facial drooping, patient presented to emergency room with similar complaints yesterday, at that time she was offered MRI and admission by [facility] room physician however she felt that she was improving and she opted to go home. However over the next several hours patient developed complete aphasia, she was brought back to the emergency room by her family. She was evaluated in the emergency room vital examination on presentation revealed a temperature of 99 pulse 84 respiration 18 blood pressure 160/87 pulse ox 94% on room air Laboratory data revealed a white blood count of 7.1 hemoglobin 14.6 platelet count 167 sodium 137 potassium 4.3 chloride 102 CO2 29 BUN 9 creatinine 0.56 urine analysis revealed no evidence of infection and urine toxicology screen was negative Testing in the emergency room revealed, computed tomography scan of the brain without contrast was done in the emergency room and revealed no acute intracranial process, CT angiogram of the brain done in the emergency room revealed no evidence of dissection of the cervical internal carotid arteries or vertebral arteries or any evidence of significant stenosis at the carotid bifurcation there was no evidence of intracranial high-grade stenosis or intracranial aneurysm Patient was admitted to medical floor for further evaluation and treatment, neurology consultation was requested Past medical history is significant for history of breast cancer, history of stacey ng cancer, history of atrial fibrillation, history of lower extremity DVT, patient was maintained on Xarelto At home On 10/02/2022. Patient is currently resting in room remains with difficulty in speech and right facial drooping. MRI of the brain was completed showing scattered foci of restricted diffusion compatible with acute or subacute CVA given multiple vascular distributions correlate for emboli phenomenon. Neurology services are following. Cardiology services also consulted. Current vital signs temp 98.1, heart rate 74, blood pressure 129/67 pulse ox of 94% on room air On 10/03/2022, patient was seen and examined on telemetry, case was discussed in details with Dr. Amadou López neurologist, patient is developing more difficulty with swallowing, recommendation from neurology is to proceed with JESUS, to rule out cardiac thrombus or PFO. However due to significant difficulty with swallowing, cardiology wanted to wait at this time on JESUS. Recommendation from neurology at this time is to proceed with upper and lower bilateral lower extremity Doppler to rule out acute DVT, and to start anticoagulation starting tomorrow. On 10/04/2022 patient is sitting comfortably in chair. Patient remains nonverbal. Pradaxa has been started per cardiology and neurology recommendations. Current vital signs temp 97.5, heart rate 77, respiratory rate 16, blood pressure 1 5476 with pulse ox 93% on room air. Per cardiology at this time JESUS remains on hold due to difficulty in swallowing. On 10/05/2022 patient was seen and examined on the medical she is alert and oriented 3 in no apparent distress, she is sitting up in a chair, she still has significant facial drooping, she has complete aphasia, she tries to answer questions by nodding her head, she is still having significant difficulty with swallowing, cardiology note reviewed, no plans for JESUS at this time due to difficulty swallowing and the risk of aspiration, she was started on Pradaxa for anticoagulation, she is having difficulty swallowing the pill as it cannot be crushed. At this time will continue with physical therapy, occupational therapy, and speech therapy, will reassess in a.m. On 10/06/2022 patient was seen and examined the medical floor she is alert and oriented in no apparent distress, she is sitting up in a chair she still has complete aphasia, she is having difficulty swallowing, she is complaining of constipation, otherwise she denies any complaints there is no fever or chills no headache or dizziness no chest pain no shortness of breath no cough no nausea or vomiting no abdominal pain no diarrhea and no urinary symptoms. At this time, JESUS will be delayed until patient has better swallowing per cardiology, possibility of rehab admission discussed with patient however she is indicating that she wants to go home, possible discharge to home tomorrow if stable and no further recommendation from cardiology or neurology On 10/07/2022 patient is currently sitting in chair. Patient's son at bedside. Per patient's son patient had a fall this a.m. due to new onset of weakness to her right arm. Patient denies any injuries from fall but does report that the right arm weakness started last night. This is new per son. At this time will do a head CT and discussed with nursing staff to notify neurology services. patient denies chest pain or shortness of breath. Patient denies nausea vomiting or diarrhea. Patient denies any urinary burning or frequency. On 10/08/2022 patient was seen and examined on the telemetry floor she is alert responsive in no apparent distress she is still completely aphasic, she is answering questions by nodding her head, she is still having right sided facial drooping and difficulty swallowing, she also now has complete paralysis of the right upper extremity, neurology are following closely, they recommended JESUS however per their notes patient has refused to complete test. Medication were reviewed will continue with current management will discuss with neurology further treatment steps. On 10/09/2022 patient is currently resting comfortably in bed. Patient have some movement to right extremity no further new neurological symptoms. Patient still having right-sided facial drooping and difficulty swallowing. Patient's son is at bedside per family trying to convince patient to move forward with JESUS. Neurology services are following this time patient denies chest pain or shortness of breath. Patient denies nausea vomiting or diarrhea. Patient denies any urinary burning or frequency Objective - Vital Signs Vital signs: Vital Signs Temp 97.3 F L 10/09/22 04:00 Pulse 84 10/09/22 04:00 Resp 16 10/09/22 04:00 BP 141/66 10/09/22 04:00 Pulse Ox 88 L 10/09/22 09:14 FiO2 Intake & Output 10/08/22 10/09/22 10/09/22 18:59 06:59 18:59 Intake Total 370 20 Balance 370 20 Weight 58.7 kg 63 kg Intake: IV 20 20 Invasive Line 2 20 20 Oral 350 Other: Voiding Method Bedpan Bedside Commode # Voids 1 1 # Bowel Movements 1 - Exam In general patient is alert and oriented, able to communicate by writing on board in no apparent distress HEENT head normocephalic and atraumatic Neck is supple no JVD no goiter no lymphadenopathy no carotid bruit Chest examination is clear to auscultation no crackles no wheezing Cardiac exam reveals regular heart sounds S1 and S2 no gallops no murmurs Abdomen is soft nontender no organomegaly with normal bowel sounds Extremity exam reveals no edema no cyanosis or clubbing Neurological examination reveals complete expressive aphasia, and right facial drooping otherwise no focal deficit - Labs CBC & Chem 7: 10/07/22 07:47 10/07/22 07:47 Labs: Abnormal Lab Results - Last 24 Hours (Table) 06/01/23 Range/Units 21:03 POC Glucose (mg/dL) 115 H (70-110) mg/dL Assessment and Plan Plan: Expressive aphasia and right facial droop secondary to ischemic stroke Reoccurring ischemic stroke with right arm paralysis Underlying history of lung cancer Underlying history of breast cancer Previous history of DVT 3 weeks ago, maintained on Xarelto Underlying history of left pleural effusion History of atrial fibrillation At this time patient was seen and examined in the emergency room Home medications reviewed and reordered Cardiology, pulmonary and neurology service is following Patient started on Pradaxa per cardiology JESUS currenlty on hold per cardiology. Per neurology and cardiology note patient refusing JESUS at this time Echocardiogram was ordered Will follow closely
[2022-10-09] MEDS: CLOPIDOGREL 75 MG TAB PO SCH (09:47)
[2022-10-09] MEDS: lisinopriL 5 MG TAB PO SCH (09:47)
[2022-10-09] MEDS: OSIMERTINIB 80 MG PO SCH (09:47)
[2022-10-09] MEDS: DABIGATRAN 150 MG CAP PO SCH ×3 (09:47→21:48)
[2022-10-09] MEDS: ANASTROZOLE 1 MG TAB PO SCH (09:47)
[2022-10-09] MEDS: DOCUSATE 100 MG CAP PO SCH ×2 (09:47→20:57)
--- NOTE | 2022-10-09 12:17 | P.PN ---
Subjective Progress Note Date: 10/09/22 PROGRESS NOTE The patient is a 72-year-old female with a known history of CAD who presented with a stroke and aphasia. She had a prior DVT and has been anticoagulated. She continues to be in sinus mechanism, aphasic. She denies any chest discomfort, dyspnea or dizziness. JESUS was requested by neurology, initially patient declined but she is willing to proceed with it. I discussed with her the procedure as well as with her son this morning. We'll try to find out if there is any evidence of ASD to explain her event. Medications: Lipitor 40 mg daily, Coreg 3.25 mg twice a day, Plavix 75 mg daily, lisinopril 5 mg daily, Pradaxa 150 mg twice a day PHYSICAL EXAMINATION: Blood pressure 141/60 heart rate 70, awake alert and aphasic LUNGS: Clear to auscultation HEART: Regular rate and rhythm, S1, S2. No S3. systolic ejection murmur ABDOMEN: Soft, nontender, no organomegaly EXTREMETIES: No edema IMPRESSION: 1. Status post CVA, source unclear, embolic. 2. History of CAD stable 3. History of hyperlipidemia 4. Recent DVT 5. History of hypertension PLAN: 1. Proceed with JESUS tomorrow, the procedure was discussed with the patient and the son 2. Depending on the results of the testing further recommendations will be made 3. Follow blood pressure Objective - Vital Signs Vital signs: Vital Signs Temp 98.6 F 10/09/22 09:45 Pulse 71 10/09/22 09:45 Resp 16 10/09/22 09:45 BP 145/71 10/09/22 09:45 Pulse Ox 91 L 10/09/22 09:45 FiO2 Intake & Output 10/08/22 10/09/22 10/09/22 18:59 06:59 18:59 Intake Total 370 20 10 Balance 370 20 10 Weight 58.7 kg 63 kg Intake: IV 20 20 10 Invasive Line 2 20 20 10 Oral 350 Other: Voiding Method Bedpan Bedside Commode Bedside Commode # Voids 1 1 # Bowel Movements 1 - Labs CBC & Chem 7: 10/07/22 07:47 10/07/22 07:47 Labs: Abnormal Lab Results - Last 24 Hours (Table) 10/08/22 Range/Units 21:03 POC Glucose (mg/dL) 115 H (70-110) mg/dL
--- NOTE | 2022-10-09 12:55 | P.PN ---
Subjective Progress Note Date: 10/09/22 The patient is seen at bedside and per nursing staff, she was worked with physical therapy and felt moving slight better on right. 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 Objective - Vital Signs Vital signs: Vital Signs Temp 98 F 10/09/22 12:30 Pulse 89 10/09/22 12:30 Resp 16 10/09/22 12:30 BP 144/85 10/09/22 12:30 Pulse Ox 90 L 10/09/22 12:30 FiO2 Intake & Output 10/08/22 10/09/22 10/09/22 18:59 06:59 18:59 Intake Total 370 20 10 Balance 370 20 10 Weight 58.7 kg 63 kg Intake: IV 20 20 10 Invasive Line 2 20 20 10 Oral 350 Other: Voiding Method Bedpan Bedside Commode Bedside Commode # Voids 1 1 # Bowel Movements 1 - Exam Neuro: Patient is awake alert. She has global aphasia. She'll follow few simple commands (such as thumbs up, sticking out her tongue and wiggling her toes). As stated earlier has global aphasia and felt more expresive. Cranial nerve: Visual patel assessment is hard to assess because of her cooperation. EOM she's tracking throughout the room. Patient has right lower facial droop that's moderate in severity. Patient is mute. Motor: The strength is right upper extremity was not able to move hand upon seeing her. Right lower is 4+ to 5-. Otherwise 5/5 throughout. Some of the workup during his hospital visit consisted of: Lipid panel triglycerides 79, cholesterol is 204, LDLs 128, HDL 59. CT head is reported as no acute intracranial process. I personally reviewed that a CT and there is no acute or subacute ischemia seen. There is no mass affect. CT angiography of the head and neck was reported as no evidence of dissection of the cervical internal carotid arteries or vertebral artery or any evidence of significant stenosis at the carotid bifurcation. No evidence of intracranial high-grade stenosis or intracranial aneurysm. Intracranial atherosclerosis of the internal carotid artery without hemodynamic stenosis. Right and increased size of left pleural effusion. There is a pleural sign in the left which could represent empyema. Persistent that scattered nodular opacity likely representing metastatic disease from the patient known malignancy. EKG is reported as sinus rhythm. Low QRS voltage [facility] Drug screen is negative. MRI brain is reported as scattered foci of restricted diffusion compatible with acute/subacute CVA. Given multiple vascular distribution correlate for embolic phenomena. No abnormal postcontrast enhancement the, no evidence for mass. Nonspecific white matter changes likely secondary to chronic small vessel ischemic disease. I personally reviewed the MRI and I agree with the report. Patient has restriction diffusion over bilateral frontal left more than the right with right parietal occipital region The echo was reported as suboptimal acoustic windows. Contrast echo study performed. Borderline normal left ventricle systolic function septal bulge. There is septal and inferior basal hypokinesis. Routine EEG is normal. There is no focal slowing, epileptiform discharges or seizure on the EEG. Venous duplex of the upper and lower extremities negative - Labs CBC & Chem 7: 10/07/22 07:47 10/07/22 07:47 Labs: Abnormal Lab Results - Last 24 Hours (Table) 10/08/22 Range/Units 21:03 POC Glucose (mg/dL) 115 H (70-110) mg/dL Assessment and Plan Assessment: This is a 72-year-old woman who had the expressive aphasia and right facial weakness since 09/30/2022. Initially she presented to our facility yesterday and her symptoms has improved except some subtle right lower facial weakness but today as she presented again with expressive aphasia, dysarthria with right facial weakness Recurrent ischemic strokes. Patient apparently had a new stroke with new right arm paresis. Her right facial droop and aphasia also seems to have gotten worse. Acute ischemic stroke (over bilateral hemisphere: bilateral frontal L>R, right parietal and occipital region). Stroke appears embolic in nature: Probable cardioembolic. Patient has failed Xarelto, now Pradaxa as well. Unsure if has large PFO and with DVT it embolized to brain. History of left lung cancer History of right breast cancer History of recent DVT about 3 weeks ago and was on Xarelto Left Pleural effusion on CTA History of pleural effusion History of atrial fibrillation and in past was on anticoagulation then stopped then after DVT 3 weeks ago restarted it Plan: Patient had a new ischemic stroke recently. CT head revealed no acute hemorrhage. Evolving acute infarcts right parietal lobe and left frontal lobes are suspected. On my review, the left frontal lobe ischemic stroke appears to be worse as compared to the MRI from 10/01/2022. CTA of head and neck showed no significant change from recent CTA study. No LVO. Patient has failed Xarelto, and now also Pradaxa. Patient is also on Plavix. Recommend JESUS to evaluate for embolic source. Family wants it to be pursued. Spoke with Cardiology and will attempt to pursue. I will get repeat CT head since felt weaker on right side (predominately upper) and unsure if was tired as result of being worked by therapy. Continue Lipitor 40 mg daily at bedtime second stroke prophylaxis Continue neuro checks Cardiac monitoring, with telemetry showing sinus rhythm at this time. PT OT and SUPERVISOR HISTOLOGY are consulted Pulmonary team is consulted for pleural effusion and history of lung cancer We'll defer the rest of the medical management to primary team For DVT prophylaxis: Pradaxa. Discussed case with Cardiology and his nurse. UPDATE: The CT of the head is reported as no acute hemorrhage or mass effect. New area of 1.5 cm low attenuation superior left parietal with sulcal enhancement measur ing 1.5 cm. Not seen with surgery on the previous exam or MRI. No area of acute to subacute ischemia suspected. Previously noted area of abnormal low attenuation involving the left parietal frontal and right parietal lobe correlate for previous area of abnormal signal on MRI suggestive of recent infarct. I spoke with the patient's son (Hayder) via phone and updated him of the the CT of the head result. His son stated that the patient was doing better today compared to yesterday and she was moving the the right side better but continues to have right upper extremity weakness. Ordered hypercoagulable work-up and consulted hematology team. Inpatient rehab is consulted and family want to pursue with it. Likely JESUS tomorrow. Dr. Casillas will start neurology service tomorrow a.m. Time with Patient: Less than 30
--- NOTE | 2022-10-09 14:15 | CT ---
EXAMINATION TYPE: CT brain wo con DATE OF EXAM: 10/09/2022 COMPARISON: 10/07/2022, MRI 10/01/2022 HISTORY: weakness CT DLP: 1099.4 mGycm Automated exposure control for dose reduction was used. FINDINGS: Basal ganglia ossification stable. There is mild generalized degenerative change remains areas of abn ormal attenuation throughout the left frontal and parietal lobes. A smaller focal area within the rig ht parietal white matter also noted. No midline shift or mass effect. Hyperostosis of the calvarium. Craniocervical junction maintained. O rbits are symmetric. Sinuses are clear. No acute hemorrhage or mass effect. There appears to be a new area of low attenuation involving the superior margin of the left parietal lobe axial image 40. IMPRESSION: 1. NO ACUTE HEMORRHAGE OR MASS EFFECT. NEW AREA OF 1.5 CM LOW-ATTENUATION SUPERIOR LEFT PARIETAL WITH SULCAL EFFACEMENT MEASURING 1.5 CM. NOT SEEN WITH CERTAINTY ON THE PREVIOUS EXAM OR MRI PREVIOUS MRI . NO AREA OF ACUTE TO SUBACUTE ISCHEMIA SUSPECTED. REPORT CALLED TO THE PATIENT'S NURSE 2:05 PM 023. 2. PREVIOUSLY NOTED AREAS OF ABNORMAL LOW ATTENUATION INVOLVING THE LEFT PARIETAL, FRONTAL AND RIGHT PARIETAL LOBES CORRESPOND TO PREVIOUS AREAS OF ABNORMAL SIGNAL ON MRI SUGGESTIVE OF RECENT INFARCT.
--- NOTE | 2022-10-09 14:42 | P.CONS ---
History of Present Illness - Reason for Consult Consult date: 10/09/22 Rehab Recommendations. - Chief Complaint right hemiparesis, aphasia - History of Present Illness Ms Kat Kim is a 72 y/o female who lives in a home with 2 JOHN. Prior to admission patient was independent with mobility and ADLs. She has good support from her children. Ms iKm presented to the hospital on October 01, 2022 with right sided facial droop and inability to speak. Family was concerned about a stroke. She had a head CT which was negative for acute process. Patient declined an MRI at that time. Patient's speech improved and she later discharged. Patient returned back to the hospital the same day after she had difficulty speaking again. She had CT head no acute process, CTA no acute process. She had MRI brain which revealed scattered foci in the left frontal, right frontal, parietal, posterior occipital lobes correlating with an embolic phenomenon. She has a recent lower extremity DVT, was on outpatient anticoagulation. Cardiology, neurology consulted. Patient also noted to have bilateral pleural effusions, pulmonology consulted. She has history of chronic effusions with history of breast and lung cancer. Bilateral upper and lower venous duplex completed, no acute DVT. Echo with inferior septal and basal hypokinesis. Cardiology recommended pradaxa and plavix. JESUS was not recommended yet as patient was an aspiration risk. She has progressed and is now on a chopped diet, believe plan is for JESUS within next 24 hrs. She was seen by therapies, mod assist with bathing, dressing, min assist with grooming, toilet, gait 6 ft. She has right sided paresis, per therapy notes right arm is flaccid. PM&R consulted for rehab recommendations and consideration for Inpatient Rehab. Review of Systems ROS reviewed, negative unless noted in HPI above Past Medical History Past Medical History: Cancer, Hypertension, Myocardial Infarction (PA), Osteoarthritis (OA) Additional Past Medical History / Comment(s): 2-5-18 stemi, Breast CA, lung nodule/CA Last Myocardial Infarction Date:: 06/14/2017 History of Any Multi-Drug Resistant Organisms: None Reported Past Surgical History: Heart Catheterization With Stent, Tubal Ligation Additional Past Surgical History / Comment(s): 2-5-18 heart cath w/ stent rca . other past sx:D&C, laser lt eye sx. Past Anesthesia/Blood Transfusion Reactions: Motion Sickness, Postoperative Nausea & Vomiting (PONV) Date of Last Stent Placement:: 06/14/2017 Past Psychological History: No Psychological Hx Reported Smoking Status: Never smoker Past Alcohol Use History: None Reported Past Drug Use History: None Reported - Past Family History Mother Family Medical History: CVA/TIA Father Family Medical History: Cancer Additional Family Medical History / Comment(s): LIP Medications and Allergies Home Medications Medication Instructions Recorded Confirmed Type Anastrozole [Arimidex] 1 mg PO DAILY 10/01/22 10/01/22 History Osimertinib Mesylate [Tagrisso] 80 mg PO DAILY 10/01/22 10/01/22 History Rivaroxaban [Xarelto] 20 mg PO DAILY 10/01/22 10/01/22 History carvediloL [Coreg] 3.125 mg PO BID 10/01/22 10/01/22 History Allergies Allergy/AdvReac Type Severity Reaction Status Date / Time codeine AdvReac Nausea & Verified 10/01/22 11:29 Vomiting EYE DROPS WITH PRESERVATIVE/ Allergy Unknown Uncoded 10/29/21 16:03 SULPA Physical Exam Vitals: Vital Signs Temp Pulse Resp BP Pulse Ox 10/09/22 12:30 98 F 89 16 144/85 90 L 10/09/22 09:45 98.6 F 71 16 145/71 91 L 10/09/22 09:14 88 L 10/09/22 04:00 97.3 F L 84 16 141/66 93 L 10/09/22 00:00 97.6 F 85 16 149/66 94 L 10/08/22 20:00 98.4 F 101 H 18 143/78 93 L 10/08/22 16:00 87 18 154/79 98 Intake and Output 10/08/22 10/09/22 10/09/22 22:59 06:59 14:59 Intake Total 10 10 10 Balance 10 10 10 Intake: IV 10 10 10 Invasive Line 2 10 10 10 Other: Voiding Method Bedside Commode Bedside Commode # Voids 1 1 # Bowel Movements 1 Weight 63 kg EXAM; General: The patient appears stated age, comfortable, NAD Head: Normocephalic, atraumatic. Eyes: Symmetric Ears: Symmetric. Hearing within normal limits. Mouth: Clear. Neck: Supple. Cardiac: Regular rate and rhythm. Calves supple, non tender, no edema Lungs: Breathing comfortably on RA. Chest symmetric. Abdomen: Soft, nontender. Extremities: RUE flaccid Neurological: aphasia. following commands Cranial nerves: right facial droop Sensation: Intact and symmetrical limbs. Musculoskeletal: MMT UE Sh Abd EE EF FABD WE HG Right 0 0 0 0 1 1 Left 5 5 5 5 5 5 MMT LE HF KE DF EHL Right 3 4 4 4 Left 5 5 5 5 Skin: Skin intact where visible to head, neck, and bilateral upper and lower extremities Psych: Calm, cooperative Results CBC & Chem 7: 10/10/22 07:04 10/10/22 07:04 Labs: Abnormal Lab Results - Last 24 Hours (Table) 10/08/22 Range/Units 21:03 POC Glucose (mg/dL) 115 H (70-110) mg/dL MRI - head: report reviewed (Scattered foci in left frontal, right frontal posterior parietal and occipital lobes, correalte with emobilic phenomenon ) Assessment and Plan Assessment: # Acute diffuse embolic CVA with right hemiparesis and aphasia # Global aphasia # Dysphagia - chopped, dysphagia 3 diet # Impaired gait and ADL secondary to above # Recent left lower extremity DVT failing outpatient anticoag -cardio rec Pradaxa and plavix # Bilateral pleural effusions, acute on chronic -pulm following # Inferior septal and basal hypokinesis # History of lung cancer # History of breast cancer # Bowel/ Bladder: Nursing to monitor and report concerns if any. # Diet-dysphagia 3 # Skin/wound: Skin/Wound care to follow as needed # Pain Management per MAR # DVT Prophylaxis: Defer to Cardio # Comorbidities: OA, AFib # Your medical dx and mgt Goals: Modified Independent mobility and ADLS both basic and advanced; increased functional mobility/strength; increased balance, safety, endurance. Improvement in medical issues through your care. Barriers: endurance, fall risk, aspiration risk Discharge recommendation: Recommending IPR when medical work up completed. Patient is pending JESUS. Patient seen and examined by Dr. Kate, consult prepped by Doris Lala PA-C
[2022-10-09] MEDS: ATORVASTATIN 40 MG TAB PO SCH (20:57)
[2022-10-09] MEDS: RIVAROXABAN 20 MG TAB PO SCH (22:01)
--- NOTE | 2022-10-10 01:36 | P.CONS ---
History of Present Illness - Reason for Consult Consult date: 10/09/22 CVA, concern for hypercoagulable state, metastatic breast cancer - History of Present Illness The patient is 72-year-old white female, with multiple medical problems. She is known to our service for history of breast cancer, lung cancer, with bone metastases. She was admitted on 10/01/22 with difficulty speaking, and right facial droop as well as right sided weakness. She had been seen in the ER, the day previously with similar complaints, although there were less prominent. She refuse admission an MRI, as her symptoms had improved and went back home, with symptoms recurred to more severe degree. She had a brain CT which was initially negative. The patient was on Xarelto at the time of admission, as she had been diagnosed with left lower extremity DVT, below the knee in early 09/29. She was initially placed on IV heparin, and then subcu heparin, and was also started on baby aspirin. She subsequently had extensive investigations, including CT angiogram, echocardiogram, and brain MRI. The brain MRI confirmed what appeared to be multiple areas of acute/subacute infarcts. Angiographic studies were negative for any evidence of stenosis, significant atherosclerosis or dissection. Echocardiogram showed some septal bulge, as well as basal and inferior hypokinesis. The patient was seen by cardiology and neurology. She was changed to Pradaxa, and Plavix. She developed worsening of symptoms in terms of right facial droop and right-sided weakness, on 10/07/22. Repeat brain CT showed evolving acute infarcts and bilateral frontal lobes. On neurology evaluation, the left frontal lobe finding appeared to be more prominent compared to the MRI finding. There was concern for failure of current and the correlation, as well as primary hypercoagulable state, due to which consult was placed. The patient had upper and lower extremity venous Dopplers this admission which were negative for DVT. Swallow study showed week initiation with residuals, without definite penetration or aspiration. Oncology Hx is as follows : Presented with palpable right breast mass,she first noticed in 2016,she un derwent alternative therapy and followed up with a doctor in [place]. In 2017,she had a CXR and CT scan of chest,at the time when she had a heart attack which revealed 2.1 cm mass in EDGAR of her lung but declined further evaluation. Then in 2019,she agreed for mammographies and U/S which revealed a large suspicious mass in right breast and smaller lesion in left breast,on 02/29/2020,2 sites biopsies of right breast were positive for invasive ductal carcinoma,grade 2,ER/KS+(100%,100%),HER2/MAIDA negative,the biopsy of left breast was negative. On 03/15/2020,PET scan revealed suspicious uptake in right breast and questionale right axilla node with slight uptake,there was also suspicious uptake in EDGAR lung mass,measured 3 cm. OncotypeDx revealed recurrence score of 10. She REFUSED to have a lung biopsy on multiple occasions. She started arimidex on 03/18/2020 On 07/04/2021,CT scan of chest revealed progression of LLL mass and multiple new bilateral lung nodules. She did well until October/2021 when she presented with worsening dyspnea,had large left pleural effusion,thoracentesis performed,cytology was positive for adenocarcinoma consistent with lung primary,she then underwent pleuRx catheter placement,pleural biopsy at the same time was also positive for adenocarcinoma with IHC consistent with lung primary. 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 She cancelled her brain MRI and declined having a brain scan. She started osimertinib in mid December/2021 On 09/09/2022,she was diagnosed with LLE DVT and started on xarelto On 09/11/2022,repeat CT scan of chest/abdomen/pelvis revealed mostly stable disease,inflammatory changes in her lung,mostly stable Per note from 09/24/22, she feels fine,active,no dyspnea,no cough,no recurrent pleural effusion,the pleuRx catheter was removed,no dyspnea or cough Review of Systems Constitutional: Reports fatigue, Reports weakness Eyes: denies blurred vision, denies pain Ears: deny: decreased hearing, ear discharge, earache, tinnitus Ears, nose, mouth and throat: Denies headache, Denies sore throat Cardiovascular: Reports decreased exercise tolerance Respiratory: Denies cough Gastrointestinal: Denies abdominal pain, Denies diarrhea, Denies nausea, Denies vomiting Genitourinary: Reports urge incontinence Menstruation: Reports postmenopausal Musculoskeletal: Reports muscle weakness Integumentary: Denies pruritus, Denies rash Neurological: Reports as per HPI, Reports aphasia, Reports paralysis (rt sided), Reports weakness Psychiatric: Denies anxiety, Denies depression Endocrine: Reports fatigue Hematologic/Lymphatic: Reports as per HPI Past Medical History Past Medical History: Cancer, Hypertension, Myocardial Infarction (MS), Osteoarthritis (OA) Additional Past Medical History / Comment(s): 06-14-17 stemi, Breast CA, lung nodule/CA Last Myocardial Infarction Date:: 06/14/2017 History of Any Multi-Drug Resistant Organisms: None Reported Past Surgical History: Heart Catheterization With Stent, Tubal Ligation Additional Past Surgical History / Comment(s): 06-14-17 heart cath w/ stent rca . other past sx:D&C, laser lt eye sx. Past Anesthesia/Blood Transfusion Reactions: Motion Sickness, Postoperative Nausea & Vomiting (PONV) Date of Last Stent Placement:: 06/14/2017 Past Psychological History: No Psychological Hx Reported Smoking Status: Never smoker Past Alcohol Use History: None Reported Past Drug Use History: None Reported - Past Family History Mother Family Medical History: CVA/TIA Father Family Medical History: Cancer Additional Family Medical History / Comment(s): LIP Medications and Allergies Home Medications Medication Instructions Recorded Confirmed Type Anastrozole [Arimidex] 1 mg PO DAILY 10/01/22 10/01/22 History Osimertinib Mesylate [Tagrisso] 80 mg PO DAILY 10/01/22 10/01/22 History Rivaroxaban [Xarelto] 20 mg PO DAILY 10/01/22 10/01/22 History carvediloL [Coreg] 3.125 mg PO BID 10/01/22 10/01/22 History Allergies Allergy/AdvReac Type Severity Reaction Status Date / Time codeine AdvReac Nausea & Verified 10/01/22 11:29 Vomiting EYE DROPS WITH PRESERVATIVE/ Allergy Unknown Uncoded 10/29/21 16:03 SULPA Physical Exam Vitals: Vital Signs Temp Pulse Resp BP Pulse Ox 10/09/22 12:30 98 F 89 16 144/85 90 L 10/09/22 09:45 98.6 F 71 16 145/71 91 L 10/09/22 09:14 88 L 10/09/22 04:00 97.3 F L 84 16 141/66 93 L 10/09/22 00:00 97.6 F 85 16 149/66 94 L 10/08/22 20:00 98.4 F 101 H 18 143/78 93 L Intake and Output 10/09/22 10/09/22 10/09/22 06:59 14:59 22:59 Intake Total 10 20 Balance 10 20 Intake: IV 10 20 Invasive Line 2 10 20 Other: Voiding Method Bedside Commode # Voids 1 1 Weight 63 kg - Constitutional General appearance: no acute distress - EENT Eyes: EOMI, PERRLA ENT: hearing grossly normal, normal oropharynx - Neck Neck: no lymphadenopathy Thyroid: bilateral: normal size - Respiratory Respiratory: right: diminished (Lower 1/3 approx) - Cardiovascular Rhythm: regular Heart sounds: normal: S1, S2 - Gastrointestinal General gastrointestinal: normal bowel sounds, soft - Integumentary Integumentary: normal - Neurologic Neurologic: focal deficits (rt facial droop, RUE barely 1/5) - Musculoskeletal Musculoskeletal: right sided weakness - Psychiatric Responds with head movements - appropriate responses Psychiatric: appropriate affect Results CBC & Chem 7: 10/07/22 07:47 10/07/22 07:47 Labs: Abnormal Lab Results - Last 24 Hours (Table) 10/08/22 Range/Units 21:03 POC Glucose (mg/dL) 115 H (70-110) mg/dL Comments: CT angio reports reviewed Chest x-ray: report reviewed CT Scan - head: report reviewed MRI - head: report reviewed Venous US: report reviewed ( ) Assessment and Plan (1) Cerebrovascular accident (CVA) Narrative/Plan: The pt had her initial incident while on Xarelto. The pattern was felt to be c/w an embolic phenomenon. She also had a DVT recently, raising concern for a possible hypercoag state, especially since CTA x2 were negative - The CVA 's would be directly related to the DVT, only if there was a right to left shunt. Thus TTE or bubble study is reasonable - There was concern for failure of Pradaxa which was started this admission. However possible worsening of symptoms occurred within a few days of starting the pradaxa. In addition, the symptoms were essentially the same as her initial presentation. Initially the change in imaging was seen at the same site, Thus evolustion of the same event is possibly more likely. Thus continuing the same AC + Plavix is probably reasonable - The pt has a secondary hypercoag state due to her malignancies. However her cancers are currently stable. Thus it is reasonable to check for primary hypercoag states. I would order APl antibodies now, as positivity would ticket dispenser changer ( AC with either LMWH or warfarin). Testing for other states can be done outpt, as results would not ticket dispenser changer. However testing has already been ordered by Neurology. I will complete by ordering B2 glycoprotein I antibodies Current Visit: Yes Status: Acute Code(s): I63.9 - CEREBRAL INFARCTION, UNSPECIFIED SNOMED Code(s): 643820129 Plan: Breast ca and Lung ca , diagnostic and therapeutic circumstances as described. Continue Anastrozole and Osimertinib. He can take his own Osimertinib from home. These are not associated with any increased of thrombosis Defer to the admitting service and other consultants for management of her other medical problems
[2022-10-10] MEDS: carvediloL 3.125 MG TAB PO SCH ×2 (06:24→16:58)
[2022-10-10 07:26] LABS: Basophils % (A) 0 %; Eosinophils # (A) 0.1 k/uL (0-0.7); Eosinophils % (A) 1 %; HCT 45.2 % (34.0-46.0); Lymphocytes # (A) 1.2 k/uL (1.0-4.8); Lymphocytes % (A) 8 %; MCH 29.9 pg (25.0-35.0); MCHC 33.1 g/dL (31.0-37.0); MCV 90.3 fL (80.0-100.0); Mean Platelet Volume 8.6; Monocytes # (A) 1.2 k/uL (0-1.0); Monocytes % (A) 9 %; Neutrophils # (A) 11.6 k/uL (1.3-7.7); Neutrophils % (A) 81 %; Platelet Count 232 k/uL (150-450); RBC 5.01 m/uL (3.80-5.40); RDW 13.6 % (11.5-15.5); WBC 14.3 k/uL (3.8-10.6)
[2022-10-10 07:39] LABS: ALT 13 U/L (4-34); AST 22 U/L (14-36); African American GFR (CKD) >90 (>60 ml/min/1.73 sqM); Albumin 3.6 g/dL (3.5-5.0); Alkaline Phosphatase 193 U/L (38-126); Anion Gap 11 mmol/L; Blood Urea Nitrogen 19 mg/dL (7-17); Carbon Dioxide 26 mmol/L (22-30); Chloride 104 mmol/L (98-107); Glucose 105 mg/dL (74-99); Non-African American GFR(CKD) >90 (>60 ml/min/1.73 sqM); Potassium 3.7 mmol/L (3.5-5.1); Sodium 141 mmol/L (137-145); Total Bilirubin 0.7 mg/dL (0.2-1.3); Total Protein 6.4 g/dL (6.3-8.2)
[2022-10-10] MEDS ORDERED: fentaNYL (PF) 50 MCG/ML 2 ML AMP ONE (09:42)
[2022-10-10] MEDS: BENZOCAINE SPRAY 1 CAN MUCOUS MEM ONE ×2 (10:08→10:24)
[2022-10-10] MEDS ORDERED: SODIUM CHLORIDE 0.9% 250 ML IV ONE (10:16)
[2022-10-10] MEDS ORDERED: MIDAZOLAM 2 MG/2 ML VIAL IV ONE (10:27)
[2022-10-10] MEDS ORDERED: fentaNYL (PF) 50 MCG/ML 2 ML AMP IV ONE (10:27)
--- NOTE | 2022-10-10 10:41 | P.PN ---
Subjective Progress Note Date: 10/10/22 PROGRESS NOTE The patient is a 72-year-old female with a known history of CAD who presented with a stroke and aphasia. She had a prior DVT and has been anticoagulated. She continues to be in sinus mechanism, aphasic. She denies any chest discomfort, dyspnea or dizziness. JESUS was requested by neurology, initially patient declined but she is willing to proceed with it. I discussed with her the procedure as well as with her son this morning. We'll try to find out if there is any evidence of ASD to explain her event. October 10: The patient is clinically stable since yesterday, she has no chest discomfort, dizziness or palpitations. She continues to be in sinus mechanism. Hemodynamically stable. She is scheduled to undergo JESUS today to rule out intracardiac thrombus or shunting. She was changed to Xarelto since she could not swallow Pradaxa Medications: Lipitor 40 mg daily, Coreg 3.125 mg twice a day, Plavix 75 mg daily, lisinopril 5 mg daily, Xarelto 20 mg daily PHYSICAL EXAMINATION: Blood pressure 160/70 heart rate 87, awake alert and aphasic LUNGS: Clear to auscultation HEART: Regular rate and rhythm, S1, S2. No S3. systolic ejection murmur ABDOMEN: Soft, nontender, no organomegaly EXTREMETIES: No edema IMPRESSION: 1. Status post CVA, source unclear, embolic. 2. History of CAD stable 3. History of hyperlipidemia 4. Recent DVT 5. History of hypertension PLAN: 1. Proceed with JESUS today, the procedure was discussed with the patient and the son 2. Depending on the results of the testing further recommendations will be made 3. Increase lisinopril to 5 mg twice a day Objective - Vital Signs Vital signs: Vital Signs Temp 98.2 F 10/10/22 04:00 Pulse 87 10/10/22 09:05 Resp 16 10/10/22 09:05 BP 167/71 10/10/22 09:05 Pulse Ox 91 L 10/10/22 09:05 FiO2 Intake & Output 10/09/22 10/10/22 10/10/22 18:59 06:59 18:59 Intake Total 20 10 Balance 20 10 Intake: IV 20 10 Invasive Line 2 20 10 Other: Voiding Method Bedside Commode Bedside Commode # Voids 1 2 - Labs CBC & Chem 7: 10/10/22 07:04 10/10/22 07:04 Labs: Abnormal Lab Results - Last 24 Hours (Table) 10/09/22 10/10/22 10/10/22 Range/Units 16:37 07:04 07:04 WBC 14.3 H (3.8-10.6) k/uL Neutrophils # 11.6 H (1.3-7.7) k/uL Monocytes # 1.2 H (0-1.0) k/uL ESR 24 H (0-20) mm/hr BUN 19 H (7-17) mg/dL Glucose 105 H (74-99) mg/dL Alkaline Phosphatase 193 H (38-126) U/L
--- NOTE | 2022-10-10 10:43 | P.PCN ---
Date of Procedure: 10/10/22 Description of Procedure: Indication: CVA Procedure Description: After explaining the procedure to the patient, it's risk and complications, blood pressure, heart rate and O2 saturation were monitored. The throat was sprayed with Cetacaine. Patient received 1 mg intravenous Versed, 50 mcg intravenous fentanyl. The probe was introduced into the esophagus without difficulty. Images were obtained. Following that, the probe was removed. There was no immediate complication. Findings: Left atrial size is normal, left atrial appendage is normal. The ventricle size and systolic function are normal. The aortic valve is a tricuspid valve with fibrocalcific changes and preserved opening. Calcification of the mitral valve was noted. The tricuspid valve is normal. Descending thoracic aorta revealed mild atherosclerotic changes. No pericardial effusion was noted. Contrast bubble study revealed no shunting across the intra-atrial septum with Valsalva maneuver. Doppler: Pulse wave and color Doppler were obtained, revealed mild mitral and tricuspid regurgitation, there was no shunting by color Doppler study. Conclusion: 1. Normal appearance of the left atrial appendage 2. Normal in ventricle size and systolic function 3. No shunting across the intra-atrial septum 4. Mild mitral and tricuspid regurgitation 5. And aortic sclerosis with no evidence of stenosis
[2022-10-10] MEDS: ANASTROZOLE 1 MG TAB PO SCH (11:43)
[2022-10-10] MEDS: CLOPIDOGREL 75 MG TAB PO SCH (11:43)
[2022-10-10] MEDS: SODIUM CHLORIDE 0.9% 1,000 ML IV SCH (11:44)
[2022-10-10] MEDS: DOCUSATE 100 MG CAP PO SCH ×2 (11:44→20:32)
[2022-10-10] MEDS: OSIMERTINIB 80 MG PO SCH (11:44)
[2022-10-10] MEDS: lisinopriL 5 MG TAB PO SCH ×2 (11:55→20:32)
--- NOTE | 2022-10-10 12:05 | P.PN ---
Subjective Progress Note Date: 10/10/22 The patient is a 72-year-old female who is seen in neurologic follow-up on October 10, 2022, via teleneurology. The chart has been reviewed. The patient reportedly has a history of recurrent strokes. These strokes are occurring in the bilateral cerebral hemispheres, therefore thought to be embolic in nature. The patient has refused JESUS in the past. Today however, the patient will have a JESUS to help clarify etiology of these recurrent ischemic infarcts. This morning, the patient complains of left shoulder pain. Objective - Vital Signs Vital signs: Vital Signs Temp 98.2 F 10/10/22 04:00 Pulse 87 10/10/22 09:05 Resp 16 10/10/22 09:05 BP 167/71 10/10/22 09:05 Pulse Ox 91 L 10/10/22 09:05 FiO2 Intake & Output 10/09/22 10/10/22 10/10/22 18:59 06:59 18:59 Intake Total 20 110 Balance 20 110 Intake: IV 20 110 Invasive Line 2 20 10 Other: Voiding Method Bedside Commode Bedside Commode # Voids 1 2 - Exam Gen.: The patient is reclining in the bed. She is in no acute distress. HEENT: Head is atraumatic, normocephalic. Fundus not visualized. There is no scleral icterus. Mucous membranes are moist. Neurological examination Mental status: The patient is awake and alert. She is nonverbal. She follows some simple commands. There is a right neglect. Cranial nerves: There is a right facial droop. Visual patel are not assessed. Motor: Patient is able to raise her left arm and move her legs bilaterally. There is no movement of the right arm. When asked to lift her right arm, the patient raises her left arm. - Labs CBC & Chem 7: 10/10/22 07:04 10/10/22 07:04 Labs: Abnormal Lab Results - Last 24 Hours (Table) 10/09/22 10/10/22 10/10/22 Range/Units 16:37 07:04 07:04 WBC 14.3 H (3.8-10.6) k/uL Neutrophils # 11.6 H (1.3-7.7) k/uL Monocytes # 1.2 H (0-1.0) k/uL ESR 24 H (0-20) mm/hr BUN 19 H (7-17) mg/dL Glucose 105 H (74-99) mg/dL Alkaline Phosphatase 193 H (38-126) U/L Assessment and Plan Assessment: Assessment: This is a 72-year-old woman who had the expressive aphasia and right facial weakness since 09/30/2022. Initially she presented to our facility yesterday and her symptoms has improved except some subtle right lower facial weakness but today as she presented again with expressive aphasia, dysarthria with right facial weakness Recurrent ischemic strokes. Patient apparently had a new stroke with new right arm paresis. Her right facial droop and aphasia also seems to have gotten wo rse. Acute ischemic stroke (over bilateral hemisphere: bilateral frontal L>R, right parietal and occipital region). Stroke appears embolic in nature: Probable cardioembolic. Patient has failed Xarelto, now Pradaxa as well. Unsure if has large PFO and with DVT it embolized to brain. History of left lung cancer History of right breast cancer History of recent DVT about 3 weeks ago and was on Xarelto Left Pleural effusion on CTA History of pleural effusion History of atrial fibrillation and in past was on anticoagulation then stopped then after DVT 3 weeks ago restarted it JESUS results Conclusion: 1. Normal appearance of the left atrial appendage 2. Normal in ventricle size and systolic function 3. No shunting across the intra-atrial septum 4. Mild mitral and tricuspid regurgitation 5. And aortic sclerosis with no evidence of stenosis Plan: Continue Lipitor 40 mg daily at bedtime second stroke prophylaxis Continue neuro checks Cardiac monitoring, with telemetry showing sinus rhythm at this time. PT OT and ORDER ENTRY CLERK are consulted Pulmonary team is consulted for pleural effusion and history of lung cancer We'll defer the rest of the medical management to primary team Hypercoagulable workup has been ordered-await results For DVT prophylaxis: Pradaxa Time with Patient: Less than 30 (Spent 25 minutes caring for this patient today, including obtaining a history, examining the patient, reviewing chart documentation, imaging, labs and creating this note)
--- NOTE | 2022-10-10 14:11 | P.PN ---
Subjective Progress Note Date: 10/10/22 Kat Kim, is a 72-year-old female who presented to [facility] emergency room with a chief complaint difficulty with her speech, and right facial drooping, patient presented to emergency room with similar complaints yesterday, at that time she was offered MRI and admission by [facility] room physician however she felt that she was improving and she opted to go home. However over the next several hours patient developed complete aphasia, she was brought back to the emergency room by her family. She was evaluated in the emergency room vital examination on presentation revealed a temperature of 99 pulse 84 respiration 18 blood pressure 160/87 pulse ox 94% on room air Laboratory data revealed a white blood count of 7.1 hemoglobin 14.6 platelet count 167 sodium 137 potassium 4.3 chloride 102 CO2 29 BUN 9 creatinine 0.56 urine analysis revealed no evidence of infection and urine toxicology screen was negative Testing in the emergency room revealed, computed tomography scan of the brain without contrast was done in the emergency room and revealed no acute intracranial process, CT angiogram of the brain done in the emergency room revealed no evidence of dissection of the cervical internal carotid arteries or vertebral arteries or any evidence of significant stenosis at the carotid bifurcation there was no evidence of intracranial high-grade stenosis or intracranial aneurysm Patient was admitted to medical floor for further evaluation and treatment, neurology consultation was requested Past medical history is significant for history of breast cancer, history of stacey ng cancer, history of atrial fibrillation, history of lower extremity DVT, patient was maintained on Xarelto At home On 10/02/2022. Patient is currently resting in room remains with difficulty in speech and right facial drooping. MRI of the brain was completed showing scattered foci of restricted diffusion compatible with acute or subacute CVA given multiple vascular distributions correlate for emboli phenomenon. Neurology services are following. Cardiology services also consulted. Current vital signs temp 98.1, heart rate 74, blood pressure 129/67 pulse ox of 94% on room air On 10/03/2022, patient was seen and examined on telemetry, case was discussed in details with Dr. Amadou López neurologist, patient is developing more difficulty with swallowing, recommendation from neurology is to proceed with JESUS, to rule out cardiac thrombus or PFO. However due to significant difficulty with swallowing, cardiology wanted to wait at this time on JESUS. Recommendation from neurology at this time is to proceed with upper and lower bilateral lower extremity Doppler to rule out acute DVT, and to start anticoagulation starting tomorrow. On 10/04/2022 patient is sitting comfortably in chair. Patient remains nonverbal. Pradaxa has been started per cardiology and neurology recommendations. Current vital signs temp 97.5, heart rate 77, respiratory rate 16, blood pressure 1 5476 with pulse ox 93% on room air. Per cardiology at this time JESUS remains on hold due to difficulty in swallowing. On 10/05/2022 patient was seen and examined on the medical she is alert and oriented 3 in no apparent distress, she is sitting up in a chair, she still has significant facial drooping, she has complete aphasia, she tries to answer questions by nodding her head, she is still having significant difficulty with swallowing, cardiology note reviewed, no plans for JESUS at this time due to difficulty swallowing and the risk of aspiration, she was started on Pradaxa for anticoagulation, she is having difficulty swallowing the pill as it cannot be crushed. At this time will continue with physical therapy, occupational therapy, and speech therapy, will reassess in a.m. On 10/06/2022 patient was seen and examined the medical floor she is alert and oriented in no apparent distress, she is sitting up in a chair she still has complete aphasia, she is having difficulty swallowing, she is complaining of constipation, otherwise she denies any complaints there is no fever or chills no headache or dizziness no chest pain no shortness of breath no cough no nausea or vomiting no abdominal pain no diarrhea and no urinary symptoms. At this time, JESUS will be delayed until patient has better swallowing per cardiology, possibility of rehab admission discussed with patient however she is indicating that she wants to go home, possible discharge to home tomorrow if stable and no further recommendation from cardiology or neurology On 10/07/2022 patient is currently sitting in chair. Patient's son at bedside. Per patient's son patient had a fall this a.m. due to new onset of weakness to her right arm. Patient denies any injuries from fall but does report that the right arm weakness started last night. This is new per son. At this time will do a head CT and discussed with nursing staff to notify neurology services. patient denies chest pain or shortness of breath. Patient denies nausea vomiting or diarrhea. Patient denies any urinary burning or frequency. On 10/08/2022 patient was seen and examined on the telemetry floor she is alert responsive in no apparent distress she is still completely aphasic, she is answering questions by nodding her head, she is still having right sided facial drooping and difficulty swallowing, she also now has complete paralysis of the right upper extremity, neurology are following closely, they recommended JESUS however per their notes patient has refused to complete test. Medication were reviewed will continue with current management will discuss with neurology further treatment steps. On 10/09/2022 patient is currently resting comfortably in bed. Patient have some movement to right extremity no further new neurological symptoms. Patient still having right-sided facial drooping and difficulty swallowing. Patient's son is at bedside per family trying to convince patient to move forward with JESUS. Neurology services are following this time patient denies chest pain or shortness of breath. Patient denies nausea vomiting or diarrhea. Patient denies any urinary burning or frequency On 10/10/2022 patient was seen and examined on the telemetry floor she is alert and oriented 3 in no apparent distress she is still having right facial drooping, complete expressive aphasia, difficulty swallowing, and right upper extremity paralysis, she is scheduled for JESUS today, awaiting further input from neurology and cardiology, possible transfer to rehab on Wednesday if stable and no further recommendation for any testing and intervention. Objective - Vital Signs Vital signs: Vital Signs Temp 98.2 F 10/10/22 04:00 Pulse 87 10/10/22 09:05 Resp 16 10/10/22 09:05 BP 167/71 10/10/22 09:05 Pulse Ox 91 L 10/10/22 09:05 FiO2 Intake & Output 10/09/22 10/10/22 10/10/22 18:59 06:59 18:59 Intake Total 20 110 Balance 20 110 Intake: IV 20 110 Invasive Line 2 20 10 Other: Voiding Method Bedside Commode Bedside Commode # Voids 1 2 - Exam In general patient is alert and oriented, able to communicate by writing on board in no apparent distress HEENT head normocephalic and atraumatic Neck is supple no JVD no goiter no lymphadenopathy no carotid bruit Chest examination is clear to auscultation no crackles no wheezing Cardiac exam reveals regular heart sounds S1 and S2 no gallops no murmurs Abdomen is soft nontender no organomegaly with normal bowel sounds Extremity exam reveals no edema no cyanosis or clubbing Neurological examination reveals complete expressive aphasia, and right facial drooping otherwise no focal deficit - Labs CBC & Chem 7: 10/10/22 07:04 10/10/22 07:04 Labs: Abnormal Lab Results - Last 24 Hours (Table) 10/09/22 10/10/22 10/10/22 Range/Units 16:37 07:04 07:04 WBC 14.3 H (3.8-10.6) k/uL Neutrophils # 11.6 H (1.3-7.7) k/uL Monocytes # 1.2 H (0-1.0) k/uL ESR 24 H (0-20) mm/hr BUN 19 H (7-17) mg/dL Glucose 105 H (74-99) mg/dL Alkaline Phosphatase 193 H (38-126) U/L Assessment and Plan Plan: Expressive aphasia and right facial droop secondary to ischemic stroke Reoccurring ischemic stroke with right arm paralysis Underlying history of lung cancer Underlying history of breast cancer Previous history of DVT 3 weeks ago, maintained on Xarelto Underlying history of left pleural effusion History of atrial fibrillation At this time patient was seen and examined in the emergency room Home medications reviewed and reordered Cardiology, pulmonary and neurology service is following Patient started on Pradaxa per cardiology JESUS currenlty on hold per cardiology. Per neurology and cardiology note patient refusing JESUS at this time Echocardiogram was ordered Will follow closely
[2022-10-10] MEDS: RIVAROXABAN 20 MG TAB PO SCH (16:56)
[2022-10-10] MEDS: ATORVASTATIN 40 MG TAB PO SCH (20:32)
[2022-10-11] MEDS: carvediloL 3.125 MG TAB PO SCH ×2 (06:29→15:29)
[2022-10-11 07:37] LABS: Basophils % (A) 0 %; Eosinophils # (A) 0.1 k/uL (0-0.7); Eosinophils % (A) 0 %; HCT 44.9 % (34.0-46.0); HGB 14.6 gm/dL (11.4-16.0); Lymphocytes % (A) 6 %; MCH 29.6 pg (25.0-35.0); MCHC 32.4 g/dL (31.0-37.0); MCV 91.2 fL (80.0-100.0); Mean Platelet Volume 8.5; Monocytes # (A) 1.1 k/uL (0-1.0); Monocytes % (A) 7 %; Neutrophils # (A) 13.3 k/uL (1.3-7.7); Neutrophils % (A) 85 %; Platelet Count 235 k/uL (150-450); RBC 4.93 m/uL (3.80-5.40); RDW 13.7 % (11.5-15.5); WBC 15.6 k/uL (3.8-10.6)
[2022-10-11 08:06] LABS: ALT 12 U/L (4-34); AST 23 U/L (14-36); African American GFR (CKD) >90 (>60 ml/min/1.73 sqM); Albumin 3.5 g/dL (3.5-5.0); Alkaline Phosphatase 194 U/L (38-126); Anion Gap 8 mmol/L; Blood Urea Nitrogen 17 mg/dL (7-17); Carbon Dioxide 29 mmol/L (22-30); Chloride 103 mmol/L (98-107); Glucose 101 mg/dL (74-99); Non-African American GFR(CKD) >90 (>60 ml/min/1.73 sqM); Sodium 140 mmol/L (137-145); Total Bilirubin 0.7 mg/dL (0.2-1.3); Total Protein 6.3 g/dL (6.3-8.2)
[2022-10-11] MEDS: CLOPIDOGREL 75 MG TAB PO SCH (09:10)
[2022-10-11] MEDS: OSIMERTINIB 80 MG PO SCH (09:11)
[2022-10-11] MEDS: lisinopriL 5 MG TAB PO SCH ×2 (09:11→20:40)
[2022-10-11] MEDS: ANASTROZOLE 1 MG TAB PO SCH (09:11)
[2022-10-11] MEDS: DOCUSATE 100 MG CAP PO SCH ×2 (09:22→20:40)
--- NOTE | 2022-10-11 10:06 | P.PN ---
Subjective Progress Note Date: 10/11/22 Kat Kim, is a 72-year-old female who presented to [facility] emergency room with a chief complaint difficulty with her speech, and right facial drooping, patient presented to emergency room with similar complaints yesterday, at that time [facility] however she felt that she was improving and she opted to go home. However over the next several hours patient developed complete aphasia, she was brought back to the emergency room by her family. She was evaluated in the emergency room vital examination on presentation revealed a temperature of 99 pulse 84 respiration 18 blood pressure 160/87 pulse ox 94% on room air Laboratory data revealed a white blood count of 7.1 hemoglobin 14.6 platelet count 167 sodium 137 potassium 4.3 chloride 102 CO2 29 BUN 9 creatinine 0.56 urine analysis revealed no evidence of infection and urine toxicology screen was negative Testing in the emergency room revealed, computed tomography scan of the brain without contrast was done in the emergency room and revealed no acute intracranial process, CT angiogram of the brain done in the emergency room revealed no evidence of dissection of the cervical internal carotid arteries or vertebral arteries or any evidence of significant stenosis at the carotid bifurcation there was no evidence of intracranial high-grade stenosis or intracranial aneurysm Patient was admitted to medical floor for further evaluation and treatment, neurology consultation was requested Past medical history is significant for history of breast cancer, history of stacey ng cancer, history of atrial fibrillation, history of lower extremity DVT, patient was maintained on Xarelto At home On 10/02/2022. Patient is currently resting in room remains with difficulty in speech and right facial drooping. MRI of the brain was completed showing scattered foci of restricted diffusion compatible with acute or subacute CVA given multiple vascular distributions correlate for emboli phenomenon. Neurology services are following. Cardiology services also consulted. Current vital signs temp 98.1, heart rate 74, blood pressure 129/67 pulse ox of 94% on room air On 10/03/2022, patient was seen and examined on telemetry, case was discussed in details with Dr. Amadou López neurologist, patient is developing more difficulty with swallowing, recommendation from neurology is to proceed with JESUS, to rule out cardiac thrombus or PFO. However due to significant difficulty with swallowing, cardiology wanted to wait at this time on JESUS. Recommendation from neurology at this time is to proceed with upper and lower bilateral lower extremity Doppler to rule out acute DVT, and to start anticoagulation starting tomorrow. On 10/04/2022 patient is sitting comfortably in chair. Patient remains nonverbal. Pradaxa has been started per cardiology and neurology recommendations. Current vital signs temp 97.5, heart rate 77, respiratory rate 16, blood pressure 1 5476 with pulse ox 93% on room air. Per cardiology at this time JESUS remains on hold due to difficulty in swallowing. On 10/05/2022 patient was seen and examined on the medical she is alert and oriented 3 in no apparent distress, she is sitting up in a chair, she still has significant facial drooping, she has complete aphasia, she tries to answer questions by nodding her head, she is still having significant difficulty with swallowing, cardiology note reviewed, no plans for JESUS at this time due to difficulty swallowing and the risk of aspiration, she was started on Pradaxa for anticoagulation, she is having difficulty swallowing the pill as it cannot be crushed. At this time will continue with physical therapy, occupational therapy, and speech therapy, will reassess in a.m. On 10/06/2022 patient was seen and examined the medical floor she is alert and oriented in no apparent distress, she is sitting up in a chair she still has complete aphasia, she is having difficulty swallowing, she is complaining of constipation, otherwise she denies any complaints there is no fever or chills no headache or dizziness no chest pain no shortness of breath no cough no nausea or vomiting no abdominal pain no diarrhea and no urinary symptoms. At this time, JESUS will be delayed until patient has better swallowing per cardiology, possibility of rehab admission discussed with patient however she is indicating that she wants to go home, possible discharge to home tomorrow if stable and no further recommendation from cardiology or neurology On 10/07/2022 patient is currently sitting in chair. Patient's son at bedside. Per patient's son patient had a fall this a.m. due to new onset of weakness to her right arm. Patient denies any injuries from fall but does report that the right arm weakness started last night. This is new per son. At this time will do a head CT and discussed with nursing staff to notify neurology services. patient denies chest pain or shortness of breath. Patient denies nausea vomiting or diarrhea. Patient denies any urinary burning or frequency. On 10/08/2022 patient was seen and examined on the telemetry floor she is alert responsive in no apparent distress she is still completely aphasic, she is answering questions by nodding her head, she is still having right sided facial drooping and difficulty swallowing, she also now has complete paralysis of the right upper extremity, neurology are following closely, they recommended JESUS however per their notes patient has refused to complete test. Medication were reviewed will continue with current management will discuss with neurology further treatment steps. On 10/09/2022 patient is currently resting comfortably in bed. Patient have some movement to right extremity no further new neurological symptoms. Patient still having right-sided facial drooping and difficulty swallowing. Patient's son is at bedside per family trying to convince patient to move forward with JESUS. Neurology services are following this time patient denies chest pain or shortness of breath. Patient denies nausea vomiting or diarrhea. Patient denies any urinary burning or frequency On 10/10/2022 patient was seen and examined on the telemetry floor she is alert and oriented 3 in no apparent distress she is still having right facial drooping, complete expressive aphasia, difficulty swallowing, and right upper extremity paralysis, she is scheduled for JESUS today, awaiting further input from neurology and cardiology, possible transfer to rehab on Wednesday if stable and no further recommendation for any testing and intervention. On 10/11/2022 patient is alert and oriented 3 currently sitting up in chair. Patient continues to have right facial drooping complete expressive aphasia, difficulty swallowing and right upper extremity paralysis. No new neurological symptoms noted. Patient did have JESUS completed. White blood cell trending up 15.6 will order chest x-ray urinalysis blood culture and consult infectious dis ease. Objective - Vital Signs Vital signs: Vital Signs Temp 98.8 F 10/10/22 20:00 Pulse 98 10/11/22 04:00 Resp 16 10/11/22 04:00 BP 140/84 10/11/22 04:00 Pulse Ox 94 L 10/11/22 04:00 FiO2 Intake & Output 10/10/22 10/11/22 10/11/22 18:59 06:59 18:59 Intake Total 120 900 Balance 120 900 Intake: IV 120 Invasive Line 2 20 Oral 900 Other: Voiding Method Bedside Commode Bedside Commode # Voids 1 1 # Bowel Movements 1 - Exam In general patient is alert and oriented, able to communicate by writing on board in no apparent distress HEENT head normocephalic and atraumatic Neck is supple no JVD no goiter no lymphadenopathy no carotid bruit Chest examination is clear to auscultation no crackles no wheezing Cardiac exam reveals regular heart sounds S1 and S2 no gallops no murmurs Abdomen is soft nontender no organomegaly with normal bowel sounds Extremity exam reveals no edema no cyanosis or clubbing Neurological examination reveals complete expressive aphasia, and right facial drooping otherwise no focal deficit - Labs CBC & Chem 7: 10/11/22 06:19 10/11/22 06:19 Labs: Abnormal Lab Results - Last 24 Hours (Table) 10/11/22 10/11/22 Range/Units 06:19 06:19 WBC 15.6 H (3.8-10.6) k/uL Neutrophils # 13.3 H (1.3-7.7) k/uL Monocytes # 1.1 H (0-1.0) k/uL Glucose 101 H (74-99) mg/dL Alkaline Phosphatase 194 H (38-126) U/L Assessment and Plan Plan: Expressive aphasia and right facial droop secondary to ischemic stroke Reoccurring ischemic stroke with right arm paralysis Leukocytosis. Chest x-ray, urinary analysis blood culture ordered consult inf ectious disease Underlying history of lung cancer Underlying history of breast cancer Previous history of DVT 3 weeks ago, maintained on Xarelto Underlying history of left pleural effusion History of atrial fibrillation At this time patient was seen and examined in the emergency room Home medications reviewed and reordered Cardiology, pulmonary and neurology service is following JESUS completed on 10/10/2022 Will follow closely
--- NOTE | 2022-10-11 11:39 | XR ---
EXAMINATION TYPE: XR chest 2V DATE OF EXAM: 10/11/2022 COMPARISON: 10/01/2022 HISTORY: Shortness of breath TECHNIQUE: Frontal and lateral views of the chest are obtained. FINDINGS: Scattered senescent parenchymal changes noted. Hyperinflation compatible with COPD. Progressive bilateral pleural effusions left greater than right with progressive mixed airspace and i nterstitial infiltrates. Heart size is stable. Mediastinal structures are stable and grossly unremarkable. No evidence for hilar prominence. Degenerative changes dorsal spine. IMPRESSION: 1. Progressive bilateral pleural effusions left greater than right with progressive mixed airspace an d interstitial infiltrates.
--- NOTE | 2022-10-11 12:13 | P.PN ---
Progress Note - Text Progress Note Date: 10/11/22 Addendum note on 10/11/2022 Patient is complaining of constipation Lactulose 20 milligrams by mouth 4 times a day was added to regimen
[2022-10-11] MEDS: LACTULOSE 20 GM/30 ML CUP PO SCH ×3 (14:16→20:41)
[2022-10-11] MEDS: SODIUM CHLORIDE 0.9% 1,000 ML IV SCH (14:16)
[2022-10-11] MEDS: ACETAMINOPHEN TAB 325 MG TAB PO PRN (15:29)
[2022-10-11] MEDS: RIVAROXABAN 20 MG TAB PO SCH (15:29)
--- NOTE | 2022-10-11 16:20 | P.PN ---
Subjective Progress Note Date: 10/11/22 PROGRESS NOTE The patient is a 72-year-old female with a known history of CAD who presented with a stroke and aphasia. She had a prior DVT and has been anticoagulated. She continues to be in sinus mechanism, aphasic. She denies any chest discomfort, dyspnea or dizziness. JESUS was requested by neurology, initially patient declined but she is willing to proceed with it. I discussed with her the procedure as well as with her son this morning. We'll try to find out if there is any evidence of ASD to explain her event. October 10: The patient is clinically stable since yesterday, she has no chest discomfort, dizziness or palpitations. She continues to be in sinus mechanism. Hemodynamically stable. She is scheduled to undergo JESUS today to rule out intracardiac thrombus or shunting. She was changed to Xarelto since she could not swallow Pradaxa October 11: The patient is doing well this morning, she is hemodynamically stable. She denies any chest discomfort, dizziness or palpitations. She underwent a JESUS yesterday that showed no evidence of intracardiac thrombus or shunting. She continues to be in sinus mechanism. Medications: Lipitor 40 mg daily, Coreg 3.125 mg twice a day, Plavix 75 mg daily, lisinopril 5 mg twice a day, Xarelto 20 mg daily PHYSICAL EXAMINATION: Blood pressure 154/89 heart rate 84, awake alert and aphasic LUNGS: Clear to auscultation HEART: Regular rate and rhythm, S1, S2. No S3. systolic ejection murmur ABDOMEN: Soft, nontender, no organomegaly EXTREMETIES: No edema IMPRESSION: 1. Status post CVA, source unclear, embolic. 2. History of CAD stable 3. History of hyperlipidemia 4. Recent DVT 5. History of hypertension PLAN: 1. Continue present therapy 2. Follow blood pressure 3. Transfer to rehab when available Objective - Vital Signs Vital signs: Vital Signs Temp 97.4 F L 10/11/22 08:00 Pulse 84 10/11/22 12:00 Resp 18 10/11/22 12:00 BP 154/89 10/11/22 12:00 Pulse Ox 93 L 10/11/22 12:00 FiO2 Intake & Output 10/10/22 10/11/22 10/11/22 18:59 06:59 18:59 Intake Total 120 1440 Balance 120 1440 Intake: IV 120 Invasive Line 2 20 Oral 1440 Other: Voiding Method Bedside Commode Bedside Commode Bedside Commode # Voids 1 1 2 # Bowel Movements 1 - Labs CBC & Chem 7: 10/11/22 06:19 10/11/22 06:19 Labs: Abnormal Lab Results - Last 24 Hours (Table) 10/11/22 10/11/22 Range/Units 06:19 06:19 WBC 15.6 H (3.8-10.6) k/uL Neutrophils # 13.3 H (1.3-7.7) k/uL Monocytes # 1.1 H (0-1.0) k/uL Glucose 101 H (74-99) mg/dL Alkaline Phosphatase 194 H (38-126) U/L
[2022-10-11 17:34] LABS: Appearance,Urine Turbid (Clear); Bacteria,Urine Moderate /hpf; Bilirubin,Urine Negative (Negative); Blood,Urine Negative (Negative); Color,Urine Yellow; Glucose,Urine (UA) Negative (Negative); Ketones,Urine 2+ (Negative); Leukocyte Esterase,Urine Trace (Negative); Mucus,Urine Many /hpf; Nitrite,Urine Negative (Negative); PH, Urine 5.5 (5.0-8.0); Protein,Urine 1+ (Negative); RBC,Urine 4 /hpf (0-5); Specific Gravity,Urine 1.031 (1.001-1.035); Squamous Epithelial Cell,Urine 1 /hpf (0-4); Uric Acid Crystals,Urine Moderate /hpf; Urobilinogen,Urine <2.0 mg/dL (<2.0)
--- NOTE | 2022-10-11 18:58 | P.CONS ---
History of Present Illness - Reason for Consult Consult date: 10/11/22 - History of Present Illness Patient is a 72-year-old female who has been in the hospital for the last 10 days with initial presentation to the hospital on 10/01/2022 for evaluation of strokelike symptoms patient did have a slight right-sided facial droop and has been mute unable to speak but the patient is unable to communicate and has been evaluated by neurology services did have an MRI scattered foci of restricted diffusion compatible with acute/subacute CVA given for multiple vascular distribution correlate for embolic phenomena subsequently patient has been evaluated by cardiology and pulmonary services patient has been afebrile during this hospital stay patient did have a normal white count admission did have 1 elevated at 14.3 on 10/02/2022 since then the patient did have normal white count until yesterday and the white count was 14.3 and is 15.6 today that has prompted infectious disease consultation patient is currently nonverbal however is able to communicate she is breathing comfortably on room air has been complaining of some sores in the mouth denies having any chest pain or shortness of breath she did have some cough with occasional sputum no nausea vomiting no abdominal pain no diarrhea no urinary symptoms Past Medical History Past Medical History: Cancer, Hypertension, Myocardial Infarction (NE), Osteoarthritis (OA) Additional Past Medical History / Comment(s): 2-18 stemi, Breast CA, lung nodule/CA Last Myocardial Infarction Date:: 06/14/2017 History of Any Multi-Drug Resistant Organisms: None Reported Past Surgical History: Heart Catheterization With Stent, Tubal Ligation Additional Past Surgical History / Comment(s): 2-18 heart cath w/ stent rca . other past sx:D&C, laser lt eye sx. Past Anesthesia/Blood Transfusion Reactions: Motion Sickness, Postoperative Nausea & Vomiting (PONV) Date of Last Stent Placement:: 06/14/2017 Past Psychological History: No Psychological Hx Reported Smoking Status: Never smoker Past Alcohol Use History: None Reported Past Drug Use History: None Reported - Past Family History Mother Family Medical History: CVA/TIA Father Family Medical History: Cancer Additional Family Medical History / Comment(s): LIP Medications and Allergies Home Medications Medication Instructions Recorded Confirmed Type Anastrozole [Arimidex] 1 mg PO DAILY 10/01/22 10/01/22 History Osimertinib Mesylate [Tagrisso] 80 mg PO DAILY 10/01/22 10/01/22 History Rivaroxaban [Xarelto] 20 mg PO DAILY 10/01/22 10/01/22 History carvediloL [Coreg] 3.125 mg PO BID 10/01/22 10/01/22 History Allergies Allergy/AdvReac Type Severity Reaction Status Date / Time codeine AdvReac Nausea & Verified 10/01/22 11:29 Vomiting EYE DROPS WITH PRESERVATIVE/ Allergy Unknown Uncoded 10/29/21 16:03 SULPA Physical Exam Vitals: Vital Signs Temp Pulse Resp BP Pulse Ox 10/11/22 04:00 98 16 140/84 94 L 10/11/22 02:00 100 20 10/11/22 00:00 100 20 147/86 96 10/10/22 20:00 98.8 F 81 16 137/80 95 10/10/22 16:00 97.8 F 94 16 134/66 95 Intake and Output 10/10/22 10/11/22 10/11/22 22:59 06:59 14:59 Intake Total 900 Balance 900 Intake: Oral 900 Other: Voiding Method Bedside Commode Bedside Commode # Voids 1 1 # Bowel Movements 1 Results CBC & Chem 7: 10/11/22 06:19 10/11/22 06:19 Labs: Abnormal Lab Results - Last 24 Hours (Table) 10/11/22 10/11/22 Range/Units 06:19 06:19 WBC 15.6 H (3.8-10.6) k/uL Neutrophils # 13.3 H (1.3-7.7) k/uL Monocytes # 1.1 H (0-1.0) k/uL Glucose 101 H (74-99) mg/dL Alkaline Phosphatase 194 H (38-126) U/L Assessment and Plan Plan: 1patient with elevated white count and this patient admitted to hospital about 10 days ago predominantly for strokelike symptoms and nonverbal MRI was suspicious for possible embolic phenomena and is being evaluated by cardiology pulmonary service since patient did receive 1 dose of steroids on admission but no steroids since then has been complaining of some sores in the mouth and concern for possible thrush/oropharyngeal candidiasis, patient did not have any fever urine has been negative chest x-ray bilateral effusion with left greater than right progressively suspicious disease with question of possible fluid related however the patient also complaining of some cough with sputum production underlying pneumonia less likely but not entirely excluded 2-blood cultures obtained will be followed we will check a CRP and a procalcitonin sputum culture has been requested 3-we will add Diflucan empirically We will follow on clinical condition and cultures to further adjust medication if needed Thank you for this consultation we will follow the patient along with you Time with Patient: Greater than 30
[2022-10-11] MEDS: ATORVASTATIN 40 MG TAB PO SCH (20:40)
[2022-10-12] MEDS: carvediloL 3.125 MG TAB PO SCH ×2 (06:17→17:19)
[2022-10-12] MEDS: ANASTROZOLE 1 MG TAB PO SCH (08:47)
[2022-10-12] MEDS: DOCUSATE 100 MG CAP PO SCH ×2 (08:47→20:02)
[2022-10-12] MEDS: LACTULOSE 20 GM/30 ML CUP PO SCH ×4 (08:47→20:39)
[2022-10-12] MEDS: CLOPIDOGREL 75 MG TAB PO SCH (08:47)
[2022-10-12] MEDS: OSIMERTINIB 80 MG PO SCH (08:47)
[2022-10-12] MEDS: lisinopriL 5 MG TAB PO SCH ×2 (08:47→20:02)
[2022-10-12 09:39] LABS: Basophils % (A) 0 %; Eosinophils # (A) 0.1 k/uL (0-0.7); Eosinophils % (A) 1 %; HGB 14.9 gm/dL (11.4-16.0); Lymphocytes # (A) 0.7 k/uL (1.0-4.8); Lymphocytes % (A) 4 %; MCH 29.7 pg (25.0-35.0); MCHC 32.5 g/dL (31.0-37.0); MCV 91.2 fL (80.0-100.0); Mean Platelet Volume 8.6; Monocytes % (A) 6 %; Neutrophils # (A) 14.9 k/uL (1.3-7.7); Neutrophils % (A) 88 %; Platelet Count 213 k/uL (150-450); RBC 5.04 m/uL (3.80-5.40); RDW 13.7 % (11.5-15.5); WBC 16.9 k/uL (3.8-10.6)
[2022-10-12 10:05] LABS: ALT 20 U/L (4-34); AST 35 U/L (14-36); African American GFR (CKD) >90 (>60 ml/min/1.73 sqM); Albumin 3.5 g/dL (3.5-5.0); Alkaline Phosphatase 202 U/L (38-126); Anion Gap 11 mmol/L; Blood Urea Nitrogen 22 mg/dL (7-17); C Reactive Protein 5.2 mg/dL (<1.0); Calcium 9.4 mg/dL (8.4-10.2); Carbon Dioxide 27 mmol/L (22-30); Chloride 105 mmol/L (98-107); Glucose 111 mg/dL (74-99); Non-African American GFR(CKD) >90 (>60 ml/min/1.73 sqM); Sodium 143 mmol/L (137-145); Total Bilirubin 0.7 mg/dL (0.2-1.3); Total Protein 6.4 g/dL (6.3-8.2)
[2022-10-12 12:29] LABS: Protein S Antigen 132 % (50 - 140)
[2022-10-12] MEDS: AMPICILLIN-SULBACTAM 3 GM in SODIUM CHLORIDE 0.9% 100 ML IVPB SCH ×3 (13:33→23:53)
[2022-10-12 14:00] LABS: Prothrombin 20210A Mutation Negative
[2022-10-12 14:53] LABS: APTT 80 Sec(s) (<43); APTT 1:1 Mix 72 Sec(s) (<43); DRVVT 1:1 Mix 75 Sec(s) (<44); DRVVT Confirmation Positive (Negative); Dilute Russell Viper Venom 100 Sec(s) (<44); Hexagonal Phase Neutralization Positive (Negative)
[2022-10-12 16:13] LABS: Cardiolipin Ab IgG Interp Negative; Cardiolipin Ab IgM Interp Negative; Cardiolipin IgA Antibody 2.9 U/mL; Cardiolipin IgM Antibody 6.5 U/mL
--- NOTE | 2022-10-12 16:13 | P.PN ---
Subjective Progress Note Date: 10/12/22 I am following-up with patient. I have seen her last since this past Wednesday. Please refer to Dr. Clarke's note for further details. Per nurse she continue to plegic over the right upper extremity and was not different compared to few days. It seems she had JESUS and was negative. Objective - Vital Signs Vital signs: Vital Signs Temp 98.1 F 10/12/22 08:40 Pulse 97 10/12/22 12:00 Resp 18 10/12/22 12:00 BP 112/66 10/12/22 12:00 Pulse Ox 95 10/12/22 12:00 FiO2 Intake & Output 10/11/22 10/12/22 10/12/22 18:59 06:59 18:59 Intake Total 1570 120 Output Total 300 Balance 1570 -300 120 Weight 63 kg Intake: IV 10 20 Invasive Line 3 10 20 Oral 1560 100 Output: Urine 300 Other: Voiding Method Bedside Commode Bedside Commode Bedside Commode # Voids 2 1 - Exam Sitting up in bed and nods to doing about the same. Neuro: Patient is awake alert. She has expressive aphasia predominately. She'll follow few simple commands (such as thumbs up, sticking out her tongue and wiggling her toes) but not consistent with following right commands. Cranial nerve: Visual patel assessment is hard to assess because of her cooperation. EOM she's tracking throughout the room. Patient has right lower facial droop that's moderate in severity. Patient is mute. Motor: The strength is right upper extremity is plegic while right lower is 4+ to 5-. Otherwise left is 5/5 throughout. Decrease tone over the right upper. Some of the workup during his hospital visit consisted of: Lipid panel triglycerides 79, cholesterol is 204, LDLs 128, HDL 59. CT head is reported as no acute intracranial process. I personally reviewed that a CT and there is no acute or subacute ischemia seen. There is no mass affect. CT angiography of the head and neck was reported as no evidence of dissection of the cervical internal carotid arteries or vertebral artery or any evidence of significant stenosis at the carotid bifurcation. No evidence of intracranial high-grade stenosis or intracranial aneurysm. Intracranial atherosclerosis of the internal carotid artery without hemodynamic stenosis. Right and increased size of left pleural effusion. There is a pleural sign in the left which could represent empyema. Persistent that scattered nodular opacity likely representing metastatic disease from the patient known malignancy . EKG is reported as sinus rhythm. Low QRS voltage URIne Drug screen is negative. MRI brain is reported as scattered foci of restricted diffusion compatible with acute/subacute CVA. Given multiple vascular distribution correlate for embolic phenomena. No abnormal postcontrast enhancement the, no evidence for mass. Nonspecific white matter changes likely secondary to chronic small vessel isch emic disease. I personally reviewed the MRI and I agree with the report. Patient has restriction diffusion over bilateral frontal left more than the right with right parietal occipital region The echo was reported as suboptimal acoustic windows. Contrast echo study performed. Borderline normal left ventricle systolic function septal bulge. There is septal and inferior basal hypokinesis. Routine EEG is normal. There is no focal slowing, epileptiform discharges or seizure on the EEG. Venous duplex of the upper and lower extremities negative - Labs CBC & Chem 7: 10/12/22 09:17 10/12/22 09:17 Labs: Abnormal Lab Results - Last 24 Hours (Table) 10/09/22 10/11/22 10/12/22 Range/Units 16:37 12:20 09:17 WBC 16.9 H (3.8-10.6) k/uL Neutrophils # 14.9 H (1.3-7.7) k/uL Lymphocytes # 0.7 L (1.0-4.8) k/uL Lupus Anticoag aPTT 80 H (<43) Sec(s) Lupus Anticoag PTT Mix 72 H (<43) Sec(s) Dil Nicholas Viper Venom 100 H (<44) Sec(s) LA dRVVT Confirm Positive A (Negative) dRVVT 50:50 75 H (<44) Sec(s) Lupus Hexagonal Phase Positive A (Negative) BUN (7-17) mg/dL Glucose (74-99) mg/dL Alkaline Phosphatase (38-126) U/L C-Reactive Protein (<1.0) mg/dL Urine Appearance Turbid H (Clear) Urine Protein 1+ H (Negative) Urine Ketones 2+ H (Negative) Ur Leukocyte Esterase Trace H (Negative) Uric Acid Crystals Moderate H (None) /hpf Urine Bacteria Moderate H (None) /hpf Urine Mucus Many H (None) /hpf 10/12/22 Range/Units 09:17 WBC (3.8-10.6) k/uL Neutrophils # (1.3-7.7) k/uL Lymphocytes # (1.0-4.8) k/uL Lupus Anticoag aPTT (<43) Sec(s) Lupus Anticoag PTT Mix (<43) Sec(s) Dil Nicholas Viper Venom (<44) Sec(s) LA dRVVT Confirm (Negative) dRVVT 50:50 (<44) Sec(s) Lupus Hexagonal Phase (Negative) BUN 22 H (7-17) mg/dL Glucose 111 H (74-99) mg/dL Alkaline Phosphatase 202 H (38-126) U/L C-Reactive Protein 5.2 H (<1.0) mg/dL Urine Appearance (Clear) Urine Protein (Negative) Urine Ketones (Negative) Ur Leukocyte Esterase (Negative) Uric Acid Crystals (None) /hpf Urine Bacteria (None) /hpf Urine Mucus (None) /hpf Assessment and Plan Assessment: This is a 72-year-old woman who had the expressive aphasia and right facial weakness since 09/30/2022. Initially she presented to our facility yesterday and her symptoms has improved except some subtle right lower facial weakness but today as she presented again with expressive aphasia, dysarthria with right facial weakness Recurrent ischemic strokes. Patient apparently had a new stroke with new right arm paresis. Her right facial droop and aphasia also seems to have gotten wors e. Acute ischemic stroke (over bilateral hemisphere: bilateral frontal L>R, right parietal and occipital region). Stroke appears embolic in nature: Probable card ioembolic. Patient has failed Xarelto, now Pradaxa as well. JESUS is negative. History of left lung cancer History of right breast cancer History of recent DVT about 3 weeks ago and was on Xarelto Left Pleural effusion on CTA History of pleural effusion History of atrial fibrillation and in past was on anticoagulation then stopped then after DVT 3 weeks ago restarted it Plan: Most recent CT head is reported as no acute hemorrhage or mass effect. New area of 1.5 cm low attenuation superior left parietal with sulcal enhancement measuring 1.5 cm. Not seen with surgery on the previous exam or MRI. No area of acute to subacute ischemia suspected. Previously noted area of abnormal low attenuation involving the left parietal frontal and right parietal lobe correlate for previous area of abnormal signal on MRI suggestive of recent infarct. CTA of head and neck showed no significant change from recent CTA study. No LVO. Patient has failed Xarelto, and cardiology placed her on Pradaxa but since she could not swallow Pradaxa cardiology switched her back to Xarelto. I spoke with primary team and we agreed to place her on Eliquis since she failed Xarelto. Patient is also on Plavix. Pending hypercoagulable work-up. JESUS is negative for PFO. Normal left atrial appendiage. Normal ventricle seizure and function. No evidence of aortic stenosis. Continue Lipitor 40 mg daily at bedtime second stroke prophylaxis Continue neuro checks Cardiac monitoring, with telemetry showing sinus rhythm at this time. PT OT and [employer] are consulted Pulmonary team is consulted for pleural effusion and history of lung cancer We'll defer the rest of the medical management to primary team Recommend the patient to follow-up with neurologist as outpatient within 1-2 weeks. Patient will benefit from inpatient rehab. For DVT prophylaxis: Linda Discussed case with her PCP and her nurse. Time with Patient: Less than 30
--- NOTE | 2022-10-12 17:06 | P.PN ---
Subjective Progress Note Date: 10/12/22 Kat Kim, is a 72-year-old female who presented to [facility] emergency room with a chief complaint difficulty with her speech, and right facial drooping, patient presented to emergency room with similar complaints yesterday, at that time she was offered MRI and admission by [facility] room physician however she felt that she was improving and she opted to go home. However over the next several hours patient developed complete aphasia, she was brought back to the emergency room by her family. She was evaluated in the emergency room vital examination on presentation revealed a temperature of 99 pulse 84 respiration 18 blood pressure 160/87 pulse ox 94% on room air Laboratory data revealed a white blood count of 7.1 hemoglobin 14.6 platelet count 167 sodium 137 potassium 4.3 chloride 102 CO2 29 BUN 9 creatinine 0.56 urine analysis revealed no evidence of infection and urine toxicology screen was negative Testing in the emergency room revealed, computed tomography scan of the brain without contrast was done in the emergency room and revealed no acute intracranial process, CT angiogram of the brain done in the emergency room revealed no evidence of dissection of the cervical internal carotid arteries or vertebral arteries or any evidence of significant stenosis at the carotid bifurcation there was no evidence of intracranial high-grade stenosis or intracranial aneurysm Patient was admitted to medical floor for further evaluation and treatment, neurology consultation was requested Past medical history is significant for history of breast cancer, history of stacey ng cancer, history of atrial fibrillation, history of lower extremity DVT, patient was maintained on Xarelto At home On 10/02/2022. Patient is currently resting in room remains with difficulty in speech and right facial drooping. MRI of the brain was completed showing scattered foci of restricted diffusion compatible with acute or subacute CVA given multiple vascular distributions correlate for emboli phenomenon. Neurology services are following. Cardiology services also consulted. Current vital signs temp 98.1, heart rate 74, blood pressure 129/67 pulse ox of 94% on room air On 10/03/2022, patient was seen and examined on telemetry, case was discussed in details with Dr. Amadou López neurologist, patient is developing more difficulty with swallowing, recommendation from neurology is to proceed with JESUS, to rule out cardiac thrombus or PFO. However due to significant difficulty with swallowing, cardiology wanted to wait at this time on JESUS. Recommendation from neurology at this time is to proceed with upper and lower bilateral lower extremity Doppler to rule out acute DVT, and to start anticoagulation starting tomorrow. On 10/04/2022 patient is sitting comfortably in chair. Patient remains nonverbal. Pradaxa has been started per cardiology and neurology recommendations. Current vital signs temp 97.5, heart rate 77, respiratory rate 16, blood pressure 1 5476 with pulse ox 93% on room air. Per cardiology at this time JESUS remains on hold due to difficulty in swallowing. On 10/05/2022 patient was seen and examined on the medical she is alert and oriented 3 in no apparent distress, she is sitting up in a chair, she still has significant facial drooping, she has complete aphasia, she tries to answer questions by nodding her head, she is still having significant difficulty with swallowing, cardiology note reviewed, no plans for JESUS at this time due to difficulty swallowing and the risk of aspiration, she was started on Pradaxa for anticoagulation, she is having difficulty swallowing the pill as it cannot be crushed. At this time will continue with physical therapy, occupational therapy, and speech therapy, will reassess in a.m. On 10/06/2022 patient was seen and examined the medical floor she is alert and oriented in no apparent distress, she is sitting up in a chair she still has complete aphasia, she is having difficulty swallowing, she is complaining of constipation, otherwise she denies any complaints there is no fever or chills no headache or dizziness no chest pain no shortness of breath no cough no nausea or vomiting no abdominal pain no diarrhea and no urinary symptoms. At this time, JESUS will be delayed until patient has better swallowing per cardiology, possibility of rehab admission discussed with patient however she is indicating that she wants to go home, possible discharge to home tomorrow if stable and no further recommendation from cardiology or neurology On 10/07/2022 patient is currently sitting in chair. Patient's son at bedside. Per patient's son patient had a fall this a.m. due to new onset of weakness to her right arm. Patient denies any injuries from fall but does report that the right arm weakness started last night. This is new per son. At this time will do a head CT and discussed with nursing staff to notify neurology services. patient denies chest pain or shortness of breath. Patient denies nausea vomiting or diarrhea. Patient denies any urinary burning or frequency. On 10/08/2022 patient was seen and examined on the telemetry floor she is alert responsive in no apparent distress she is still completely aphasic, she is answering questions by nodding her head, she is still having right sided facial drooping and difficulty swallowing, she also now has complete paralysis of the right upper extremity, neurology are following closely, they recommended JESUS however per their notes patient has refused to complete test. Medication were reviewed will continue with current management will discuss with neurology further treatment steps. On 10/09/2022 patient is currently resting comfortably in bed. Patient have some movement to right extremity no further new neurological symptoms. Patient still having right-sided facial drooping and difficulty swallowing. Patient's son is at bedside per family trying to convince patient to move forward with JESUS. Neurology services are following this time patient denies chest pain or shortness of breath. Patient denies nausea vomiting or diarrhea. Patient denies any urinary burning or frequency On 10/10/2022 patient was seen and examined on the telemetry floor she is alert and oriented 3 in no apparent distress she is still having right facial drooping, complete expressive aphasia, difficulty swallowing, and right upper extremity paralysis, she is scheduled for JESUS today, awaiting further input from neurology and cardiology, possible transfer to rehab on Wednesday if stable and no further recommendation for any testing and intervention. On 10/11/2022 patient is alert and oriented 3 currently sitting up in chair. Patient continues to have right facial drooping complete expressive aphasia, difficulty swallowing and right upper extremity paralysis. No new neurological symptoms noted. Patient did have JESUS completed. White blood cell trending up 15.6 will order chest x-ray urinalysis blood culture and consult infectious dis ease. On 10/12/2022 patient was seen and examined on the telemetry floor she is alert and oriented in no apparent distress, she is still having right sided facial drooping, complete expressive aphasia, and difficulty swallowing, she is also having severe paralysis of the right upper extremity. I have discussed her case in details with Dr. Rondon and with Dr. Dye on neurology, patient failed on Xarelto and had a stroke while she was taking Xarelto, recommendation by cardiology was to switch to Pradaxa, which was done a few days ago, however patient was not able to swallow Pradaxa pills, and it's not recommended that those pills are crushed, so cardiology switched her back to Xarelto, however upon discussion today with neurology Dr. Amadou Dye, he recommended to switch to Eliquis. At this time will discontinue Xarelto today and start with Eliquis in a.m. tomorrow. Patient also has elevated white blood count possibly related to aspiration even though chest x-ray is not revealing evidence of pneumonia, patient is followed by infectious disease she is maintained on IV antibiotic, wi ll continue to follow closely. There is a bed available for patient in [facility] rehab unit, however due to elevated white blood count and use of IV antibiotics, she is not stable enough yet for transfer. Will follow in a.m.. Prognosis is guarded. Objective - Vital Signs Vital signs: Vital Signs Temp 98.1 F 10/12/22 08:40 Pulse 87 10/12/22 08:40 Resp 18 10/12/22 08:40 BP 137/83 10/12/22 08:40 Pulse Ox 90 L 10/12/22 08:43 FiO2 Intake & Output 10/11/22 10/12/22 10/12/22 18:59 06:59 18:59 Intake Total 1570 110 Output Total 300 Balance 1570 -300 110 Weight 63 kg Intake: IV 10 10 Invasive Line 3 10 10 Oral 1560 100 Output: Urine 300 Other: Voiding Method Bedside Commode Bedside Commode Bedside Commode # Voids 2 1 - Exam In general patient is alert and oriented, able to communicate by writing on board in no apparent distress HEENT head normocephalic and atraumatic Neck is supple no JVD no goiter no lymphadenopathy no carotid bruit Chest examination is clear to auscultation no crackles no wheezing Cardiac exam reveals regular heart sounds S1 and S2 no gallops no murmurs Abdomen is soft nontender no organomegaly with normal bowel sounds Extremity exam reveals no edema no cyanosis or clubbing Neurological examination reveals complete expressive aphasia, and right facial drooping otherwise no focal deficit - Labs CBC & Chem 7: 10/12/22 09:17 10/12/22 09:17 Labs: Abnormal Lab Results - Last 24 Hours (Table) 10/11/22 10/12/22 10/12/22 Range/Units 12:20 09:17 09:17 WBC 16.9 H (3.8-10.6) k/uL Neutrophils # 14.9 H (1.3-7.7) k/uL Lymphocytes # 0.7 L (1.0-4.8) k/uL BUN 22 H (7-17) mg/dL Glucose 111 H (74-99) mg/dL Alkaline Phosphatase 202 H (38-126) U/L C-Reactive Protein 5.2 H (<1.0) mg/dL Urine Appearance Turbid H (Clear) Urine Protein 1+ H (Negative) Urine Ketones 2+ H (Negative) Ur Leukocyte Esterase Trace H (Negative) Uric Acid Crystals Moderate H (None) /hpf Urine Bacteria Moderate H (None) /hpf Urine Mucus Many H (None) /hpf Assessment and Plan Plan: Expressive aphasia and right facial droop secondary to ischemic stroke Reoccurring ischemic stroke with right arm paralysis Leukocytosis. Chest x-ray, urinary analysis blood culture ordered consult infectious disease Underlying history of lung cancer Underlying history of breast cancer Previous history of DVT 3 weeks ago, maintained on Xarelto Underlying history of left pleural effusion History of atrial fibrillation At this time patient was seen and examined in the emergency room Home medications reviewed and reordered Cardiology, pulmonary and neurology service is following JESUS completed on 10/10/2022 Will follow closely
[2022-10-12] MEDS: FLUCONAZOLE 100 MG TAB PO SCH (17:19)
[2022-10-12] MEDS: SODIUM CHLORIDE 0.9% 1,000 ML IV SCH (18:08)
--- NOTE | 2022-10-12 18:57 | P.PN ---
Subjective Progress Note Date: 10/12/22 Principal diagnosis: History of breast cancer, metastatic lung cancer, on treatment for both. Admitted with CVA symptoms In f/u today pt is working with PT, she is standing with assist and device. She did not verbally answer any of my questions, only replied with head nods, her family corrected her answers several times. No pain Objective - Vital Signs Vital signs: Vital Signs Temp 98.1 F 10/12/22 08:40 Pulse 87 10/12/22 08:40 Resp 18 10/12/22 08:40 BP 137/83 10/12/22 08:40 Pulse Ox 90 L 10/12/22 08:43 FiO2 Intake & Output 10/11/22 10/12/22 10/12/22 18:59 06:59 18:59 Intake Total 1570 10 Output Total 300 Balance 1570 -300 10 Intake: IV 10 10 Invasive Line 3 10 10 Oral 1560 Output: Urine 300 Other: Voiding Method Bedside Commode Bedside Commode Bedside Commode # Voids 2 1 - Constitutional General appearance: Present: average body habitus, cooperative, no acute distress - EENT Eyes: Present: anicteric sclerae, EOMI ENT: Present: hearing grossly normal - Respiratory Details: Respirations even and unlabored - Peripheral edema leg Peripheral Edema: bilateral: None - Integumentary Integumentary Comment(s): bronzed skin of the BLE - Neurologic Neurologic: Present: focal deficits - Musculoskeletal Musculoskeletal: Present: right sided weakness - Psychiatric Psychiatric: Present: A&O x's 3 - Labs CBC & Chem 7: 10/12/22 09:17 10/12/22 09:17 Labs: Abnormal Lab Results - Last 24 Hours (Table) 10/11/22 10/12/22 10/12/22 Range/Units 12:20 09:17 09:17 WBC 16.9 H (3.8-10.6) k/uL Neutrophils # 14.9 H (1.3-7.7) k/uL Lymphocytes # 0.7 L (1.0-4.8) k/uL BUN 22 H (7-17) mg/dL Glucose 111 H (74-99) mg/dL Alkaline Phosphatase 202 H (38-126) U/L C-Reactive Protein 5.2 H (<1.0) mg/dL Urine Appearance Turbid H (Clear) Urine Protein 1+ H (Negative) Urine Ketones 2+ H (Negative) Ur Leukocyte Esterase Trace H (Negative) Uric Acid Crystals Moderate H (None) /hpf Urine Bacteria Moderate H (None) /hpf Urine Mucus Many H (None) /hpf - Imaging and Cardiology Chest x-ray: report reviewed Assessment and Plan (1) Cerebrovascular accident (CVA) Current Visit: Yes Status: Acute Priority: High Code(s): I63.9 - CEREBRAL INFARCTION, UNSPECIFIED SNOMED Code(s): 407236426 (2) Cancer of lung Current Visit: Yes Status: Acute Priority: Medium Code(s): C34.90 - MALIGNANT NEOPLASM OF UNSP PART OF UNSP BRONCHUS OR LUNG SNOMED Code(s): 346183887 (3) History of breast cancer Current Visit: No Status: Chronic Priority: Medium Code(s): Z85.3 - PERSONAL HISTORY OF MALIGNANT NEOPLASM OF BREAST SNOMED Code(s): 510258665 Plan: Recurrent CVA -JESUS neg -Was on xarelto for DVT when she developed CVA. She has been changed to eliquis. She is also on plavix -Pending antiphospholipid ab work up. If positive, AC with LMWH or coumadin vs DOAC is preferred based on current literature Breast cancer -cont arimidex. 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 She is current on f/u and has been doing well F/U with Medical Onc after rehab
[2022-10-12] MEDS: ATORVASTATIN 40 MG TAB PO SCH (20:02)
[2022-10-12] MEDS: APIXABAN 5 MG TAB PO SCH (20:02)
--- NOTE | 2022-10-12 22:39 | P.PN ---
Subjective Progress Note Date: 10/12/22 Principal diagnosis: Leukocytosis Patient is a 72-year-old female with multiple comorbidities has been in the hospital for more than 10 days currently being evaluated and treatment for possible stroke and noticed to have elevated white count. On today's evaluation that is 10/12/2022 patient remains to be afebrile patient is currently breathing comfortably requiring about 4 L nasal cannula denies any chest pain she did have some cough but not bringing up any sputum no vomiting or diarrhea has been reported Objective - Vital Signs Vital signs: Vital Signs Temp 98.1 F 10/12/22 08:40 Pulse 87 10/12/22 08:40 Resp 18 10/12/22 08:40 BP 137/83 10/12/22 08:40 Pulse Ox 90 L 10/12/22 08:43 FiO2 Intake & Output 10/11/22 10/12/22 10/12/22 18:59 06:59 18:59 Intake Total 1570 10 Output Total 300 Balance 1570 -300 10 Intake: IV 10 10 Invasive Line 3 10 10 Oral 1560 Output: Urine 300 Other: Voiding Method Bedside Commode Bedside Commode Bedside Commode # Voids 2 1 - Exam GENERAL DESCRIPTION: Elderly female up in the chair in no distress RESPIRATORY SYSTEM: Unlabored breathing , decreased breath sounds at bases HEART: S1 S2 regular rate and rhythm ,no loud murmurs ABDOMEN: Soft , no tenderness EXTREMITIES: No edema feet - Labs CBC & Chem 7: 10/12/22 09:17 10/12/22 09:17 Labs: Abnormal Lab Results - Last 24 Hours (Table) 10/11/22 10/12/22 10/12/22 Range/Units 12:20 09:17 09:17 WBC 16.9 H (3.8-10.6) k/uL Neutrophils # 14.9 H (1.3-7.7) k/uL Lymphocytes # 0.7 L (1.0-4.8) k/uL BUN 22 H (7-17) mg/dL Glucose 111 H (74-99) mg/dL Alkaline Phosphatase 202 H (38-126) U/L C-Reactive Protein 5.2 H (<1.0) mg/dL Urine Appearance Turbid H (Clear) Urine Protein 1+ H (Negative) Urine Ketones 2+ H (Negative) Ur Leukocyte Esterase Trace H (Negative) Uric Acid Crystals Moderate H (None) /hpf Urine Bacteria Moderate H (None) /hpf Urine Mucus Many H (None) /hpf Assessment and Plan (1) Leukocytosis Current Visit: Yes Status: Acute Code(s): D72.829 - ELEVATED WHITE BLOOD CELL COUNT, UNSPECIFIED SNOMED Code(s): 753001957 (2) Pneumonia Current Visit: Yes Status: Acute Code(s): J18.9 - PNEUMONIA, UNSPECIFIED ORGANISM SNOMED Code(s): 771365772 Plan: 1patient with elevated white count and this patient admitted to hospital about 10 days ago predominantly for strokelike symptoms and nonverbal MRI was s uspicious for possible embolic phenomena and is being evaluated by cardiology pulmonary service since patient did receive 1 dose of steroids on admission but no steroids since then has been complaining of some sores in the mouth and concern for possible thrush/oropharyngeal candidiasis, patient did not have any fever urine has been negative chest x-ray bilateral effusion with left greater than right progressively suspicious disease with question of possible fluid related however the patient also complaining of some cough with sputum production underlying pneumonia less likely but not entirely excluded 2-blood cultures obtained will be followed we are waiting for CRP and a procalcitonin sputum culture has been requested 3-Patient noticed to have worsening of the white count was up to 16.9 and abnormal x-ray concerning for possible pneumonia questionable aspiration etiology we will add Unasyn empirically and see clinical response Time with Patient: Less than 30
[2022-10-13] MEDS: carvediloL 3.125 MG TAB PO SCH ×2 (06:23→16:15)
[2022-10-13] MEDS: AMPICILLIN-SULBACTAM 3 GM in SODIUM CHLORIDE 0.9% 100 ML IVPB SCH ×2 (06:23→12:41)
[2022-10-13] MEDS: ANASTROZOLE 1 MG TAB PO SCH (09:36)
[2022-10-13] MEDS: DOCUSATE 100 MG CAP PO SCH ×2 (09:36→21:09)
[2022-10-13] MEDS: LACTULOSE 20 GM/30 ML CUP PO SCH ×4 (09:36→22:16)
[2022-10-13] MEDS: CLOPIDOGREL 75 MG TAB PO SCH (09:36)
[2022-10-13] MEDS: APIXABAN 5 MG TAB PO SCH ×2 (09:36→21:09)
[2022-10-13] MEDS: lisinopriL 5 MG TAB PO SCH ×2 (09:36→21:09)
[2022-10-13] MEDS: OSIMERTINIB 80 MG PO SCH (09:38)
[2022-10-13] MEDS: FLUCONAZOLE 100 MG TAB PO SCH (09:42)
[2022-10-13] MEDS: SODIUM CHLORIDE 0.9% 1,000 ML IV SCH (09:42)
[2022-10-13 11:31] LABS: Protein C Antigen 110 % (72-160)
[2022-10-13 12:37] LABS: Basophils % (A) 0 %; Eosinophils % (A) 0 %; HCT 45.6 % (34.0-46.0); HGB 14.7 gm/dL (11.4-16.0); Lymphocytes # (A) 0.8 k/uL (1.0-4.8); Lymphocytes % (A) 4 %; MCH 29.2 pg (25.0-35.0); MCHC 32.2 g/dL (31.0-37.0); MCV 90.7 fL (80.0-100.0); Monocytes # (A) 1.1 k/uL (0-1.0); Monocytes % (A) 5 %; Neutrophils # (A) 22.1 k/uL (1.3-7.7); Neutrophils % (A) 91 %; Platelet Count 206 k/uL (150-450); RBC 5.03 m/uL (3.80-5.40); WBC 24.2 k/uL (3.8-10.6)
[2022-10-13 12:58] LABS: ALT 24 U/L (4-34); AST 37 U/L (14-36); African American GFR (CKD) >90 (>60 ml/min/1.73 sqM); Albumin 3.4 g/dL (3.5-5.0); Alkaline Phosphatase 231 U/L (38-126); Anion Gap 10 mmol/L; Blood Urea Nitrogen 20 mg/dL (7-17); Calcium 9.3 mg/dL (8.4-10.2); Carbon Dioxide 28 mmol/L (22-30); Chloride 108 mmol/L (98-107); Glucose 117 mg/dL (74-99); Non-African American GFR(CKD) >90 (>60 ml/min/1.73 sqM); Potassium 3.7 mmol/L (3.5-5.1); Sodium 146 mmol/L (137-145); Total Bilirubin 0.6 mg/dL (0.2-1.3); Total Protein 6.4 g/dL (6.3-8.2)
--- NOTE | 2022-10-13 15:08 | P.PN ---
Subjective Progress Note Date: 10/13/22 Principal diagnosis: History of breast cancer, metastatic lung cancer, on treatment for both. Admitted with CVA symptoms In f/u today pt is not able to speak, she replies with head nods, she is unable to raise her right arm when asked to do so, she spontaneously raises the left arm when asked to do so, mild facial weakness on the right side, she is able to move both of her feet similarly. She shook her head no when asked if she was in any pain. Objective - Vital Signs Vital signs: Vital Signs Temp 97.8 F 10/13/22 08:00 Pulse 103 H 10/13/22 12:06 Resp 18 10/13/22 12:06 BP 140/73 10/13/22 08:00 Pulse Ox 91 L 10/13/22 12:00 FiO2 Intake & Output 10/12/22 10/13/22 10/13/22 18:59 06:59 18:59 Intake Total 120 20 130 Output Total 100 500 Balance 20 -480 130 Weight 63 kg Intake: IV 20 20 20 Invasive Line 3 20 20 20 Oral 100 0 110 Output: Urine 100 500 Other: Voiding Method Bedside Commode Bedside Commode Bedside Commode # Voids 1 1 # Bowel Movements 1 - Constitutional General appearance: Present: average body habitus, cooperative, no acute distress - EENT Eyes: Present: anicteric sclerae, EOMI ENT: Present: hearing grossly normal - Respiratory Details: Respirations even and unlabored at rest - Peripheral edema leg Peripheral Edema: bilateral: None - Neurologic Neurologic: Present: focal deficits - Musculoskeletal Musculoskeletal: Present: right sided weakness - Psychiatric Psychiatric Comment(s): Alert, appears to appropriately nod her head to questions, No behaviors to suggest that patient is disoriented, confused. - Labs CBC & Chem 7: 10/13/22 11:58 10/13/22 11:58 Labs: Abnormal Lab Results - Last 24 Hours (Table) 10/13/22 10/13/22 Range/Units 11:58 11:58 WBC 24.2 H (3.8-10.6) k/uL Neutrophils # 22.1 H (1.3-7.7) k/uL Lymphocytes # 0.8 L (1.0-4.8) k/uL Monocytes # 1.1 H (0-1.0) k/uL Sodium 146 H (137-145) mmol/L Chloride 108 H (98-107) mmol/L BUN 20 H (7-17) mg/dL Glucose 117 H (74-99) mg/dL AST 37 H (14-36) U/L Alkaline Phosphatase 231 H (38-126) U/L C-Reactive Protein 7.0 H (<1.0) mg/dL Albumin 3.4 L (3.5-5.0) g/dL Microbiology - Last 24 Hours (Table) 10/11/22 15:18 Blood Culture - Preliminary Blood 10/11/22 10:17 Blood Culture - Preliminary Blood Assessment and Plan (1) Cerebrovascular accident (CVA) Current Visit: Yes Status: Acute Priority: High Code(s): I63.9 - CEREBRAL INFARCTION, UNSPECIFIED SNOMED Code(s): 293058921 (2) Cancer of lung Current Visit: Yes Status: Acute Priority: Medium Code(s): C34.90 - MALIGNANT NEOPLASM OF UNSP PART OF UNSP BRONCHUS OR LUNG SNOMED Code(s): 020399244 (3) History of breast cancer Current Visit: No Status: Chronic Priority: Medium Code(s): Z85.3 - PERSONAL HISTORY OF MALIGNANT NEOPLASM OF BREAST SNOMED Code(s): 911660122 Plan: Recurrent CVA -JESUS neg -Was on xarelto for DVT when she developed CVA. She has been changed to eliquis. She is also on plavix -Still pending complete antiphospholipid ab work up. So far what is resulted, no evidence of a hypercoagulable condition. If positive, AC with LMWH or coumadin vs DOAC is preferred based on current literature Breast cancer -cont arimidex. 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 She is current on f/u and has been doing well F/U with Medical Onc after rehab
[2022-10-13] MEDS: PIPERACILLIN-TAZOBACTAM 3.375 GM in SODIUM CHLORIDE 0.9% 100 ML IVPB SCH ×2 (16:15→23:26)
--- NOTE | 2022-10-13 16:51 | P.PN ---
Subjective Progress Note Date: 10/13/22 The patient is seen at bedside and per nurse is about the same. Objective - Vital Signs Vital signs: Vital Signs Temp 98.7 F 10/13/22 16:00 Pulse 91 10/13/22 16:00 Resp 18 10/13/22 16:00 BP 160/80 10/13/22 16:00 Pulse Ox 96 10/13/22 16:00 FiO2 Intake & Output 10/12/22 10/13/22 10/13/22 18:59 06:59 18:59 Intake Total 120 20 130 Output Total 100 500 Balance 20 -480 130 Weight 63 kg Intake: IV 20 20 20 Invasive Line 3 20 20 20 Oral 100 0 110 Output: Urine 100 500 Other: Voiding Method Bedside Commode Bedside Commode Bedside Commode # Voids 1 1 # Bowel Movements 1 - Exam Sitting up in bed and nods to doing about the same. Neuro: Patient is awake alert. She has expressive aphasia predominately. She'll follow few simple commands (such as thumbs up, sticking out her tongue and wiggling her toes) but not consistent with following right commands. Cranial nerve: Visual patel assessment is hard to assess because of her cooperation. EOM she's tracking throughout the room. Patient has right lower facial droop that's moderate in severity. Patient is mute. Motor: The strength is right upper extremity is plegic while right lower is 4+ to 5-. Otherwise left is 5/5 throughout. Decrease tone over the right upper. Some of the workup during his hospital visit consisted of: Lipid panel triglycerides 79, cholesterol is 204, LDLs 128, HDL 59. CT head is reported as no acute intracranial process. I personally reviewed that a CT and there is no acute or subacute ischemia seen. There is no mass affect. CT angiography of the head and neck was reported as no evidence of dissection of the cervical internal carotid arteries or vertebral artery or any evidence of significant stenosis at the carotid bifurcation. No evidence of intracranial high-grade stenosis or intracranial aneurysm. Intracranial atherosclerosis of the internal carotid artery without hemodynamic stenosis. Right and increased size of left pleural effusion. There is a pleural sign in the left which could represent empyema. Persistent that scattered nodular opacity likely representing metastatic disease from the patient known malignancy. EKG is reported as sinus rhythm. Low QRS voltage [facility] Drug screen is negative. MRI brain is reported as scattered foci of restricted diffusion compatible with acute/subacute CVA. Given multiple vascular distribution correlate for embolic phenomena. No abnormal postcontrast enhancement the, no evidence for mass. Nonspecific white matter changes likely secondary to chronic small vessel ischemic disease. I personally reviewed the MRI and I agree with the report. Patient has restriction diffusion over bilateral frontal left more than the right with right parietal occipital region The echo was reported as suboptimal acoustic windows. Contrast echo study performed. Borderline normal left ventricle systolic function septal bulge. There is septal and inferior basal hypokinesis. Routine EEG is normal. There is no focal slowing, epileptiform discharges or seizure on the EEG. Venous duplex of the upper and lower extremities negative ESR 24 (normal is 0.-20), GOLDEN neg, anticardiolipin negat, Prothormbin [id number] is neg, Factor V leiden negate, antithromb III ag neg, Protein C/S ag are normal. Lupus anticoagulant is present. - Labs CBC & Chem 7: 10/13/22 11:58 10/13/22 11:58 Labs: Abnormal Lab Results - Last 24 Hours (Table) 10/13/22 10/13/22 Range/Units 11:58 11:58 WBC 24.2 H (3.8-10.6) k/uL Neutrophils # 22.1 H (1.3-7.7) k/uL Lymphocytes # 0.8 L (1.0-4.8) k/uL Monocytes # 1.1 H (0-1.0) k/uL Sodium 146 H (137-145) mmol/L Chloride 108 H (98-107) mmol/L BUN 20 H (7-17) mg/dL Glucose 117 H (74-99) mg/dL AST 37 H (14-36) U/L Alkaline Phosphatase 231 H (38-126) U/L C-Reactive Protein 7.0 H (<1.0) mg/dL Albumin 3.4 L (3.5-5.0) g/dL Microbiology - Last 24 Hours (Table) 10/11/22 15:18 Blood Culture - Preliminary Blood 10/11/22 10:17 Blood Culture - Preliminary Blood Assessment and Plan Assessment: This is a 72-year-old woman who had the expressive aphasia and right facial weakness since 09/30/2022. Initially she presented to our facility yesterday and her symptoms has improved except some subtle right lower facial weakness but today as she presented again with expressive aphasia, dysarthria with right facial weakness Recurrent ischemic strokes. Patient apparently had a new stroke with new right arm paresis. Her right facial droop and aphasia also seems to have gotten wors e. Acute ischemic stroke (over bilateral hemisphere: bilateral frontal L>R, right parietal and occipital region). Stroke appears embolic in nature: Probable embolic. Her lupus anticoagulant is positive. Patient has failed Xarelto, now Pradaxa as well. JESUS is negative. History of left lung cancer History of right breast cancer History of recent DVT about 3 weeks ago and was on Xarelto Left Pleural effusion on CTA History of pleural effusion History of atrial fibrillation and in past was on anticoagulation then stopped then after DVT 3 weeks ago restarted it Plan: Most recent CT head is reported as no acute hemorrhage or mass effect. New area of 1.5 cm low attenuation superior left parietal with sulcal enhancement measuring 1.5 cm. Not seen with surgery on the previous exam or MRI. No area of acute to subacute ischemia suspected. Previously noted area of abnormal low attenuation involving the left parietal frontal and right parietal lobe correlate for previous area of abnormal signal on MRI suggestive of recent infarct. CTA of head and neck showed no significant change from recent CTA study. No LVO. Patient has failed Xarelto, and cardiology placed her on Pradaxa but since she could not swallow Pradaxa cardiology switched her back to Xarelto. I spoke with primary team and we agreed to place her on Eliquis since she failed Xarelto and per nurse since no issues swallowing Eliquis. Patient is also on Plavix. Lupus anticoagulant is positive. Pending Beta-2 glycoprotein abs. Hematology is on board. JESUS is negative for PFO. Normal left atrial appendiage. Normal ventricle seizure and function. No evidence of aortic stenosis. Continue Lipitor 40 mg daily at bedtime second stroke prophylaxis Continue neuro checks Cardiac monitoring, with telemetry showing sinus rhythm at this time. PT OT and CAVING GUIDE are consulted Pulmonary team is consulted for pleural effusion and history of lung cancer We'll defer the rest of the medical management to primary team Recommend the patient to follow-up with neurologist as outpatient within 1-2 weeks. Patient will benefit from inpatient rehab. For DVT prophylaxis: Negraquclint. Discussed case with her nurse. Will continue to follow. Time with Patient: Less than 30
--- NOTE | 2022-10-13 17:45 | P.PN ---
Subjective Progress Note Date: 10/13/22 Kat Kim, is a 72-year-old female who presented to [facility] emergency room with a chief complaint difficulty with her speech, and right facial drooping, patient presented to emergency room with similar complaints yesterday, at that time she was [facility] however she felt that she was improving and she opted to go home. However over the next several hours patient developed complete aphasia, she was brought back to the emergency room by her family. She was evaluated in the emergency room vital examination on presentation revealed a temperature of 99 pulse 84 respiration 18 blood pressure 160/87 pulse ox 94% on room air Laboratory data revealed a white blood count of 7.1 hemoglobin 14.6 platelet count 167 sodium 137 potassium 4.3 chloride 102 CO2 29 BUN 9 creatinine 0.56 urine analysis revealed no evidence of infection and urine toxicology screen was negative Testing in the emergency room revealed, computed tomography scan of the brain without contrast was done in the emergency room and revealed no acute intracranial process, CT angiogram of the brain done in the emergency room revealed no evidence of dissection of the cervical internal carotid arteries or vertebral arteries or any evidence of significant stenosis at the carotid bifurcation there was no evidence of intracranial high-grade stenosis or intracranial aneurysm Patient was admitted to medical floor for further evaluation and treatment, neurology consultation was requested Past medical history is significant for history of breast cancer, history of stacey ng cancer, history of atrial fibrillation, history of lower extremity DVT, patient was maintained on Xarelto At home On 10/02/2022. Patient is currently resting in room remains with difficulty in speech and right facial drooping. MRI of the brain was completed showing scattered foci of restricted diffusion compatible with acute or subacute CVA given multiple vascular distributions correlate for emboli phenomenon. Neurology services are following. Cardiology services also consulted. Current vital signs temp 98.1, heart rate 74, blood pressure 129/67 pulse ox of 94% on room air On 10/03/2022, patient was seen and examined on telemetry, case was discussed in details with Dr. Amadou López neurologist, patient is developing more difficulty with swallowing, recommendation from neurology is to proceed with JESUS, to rule out cardiac thrombus or PFO. However due to significant difficulty with swallowing, cardiology wanted to wait at this time on JESUS. Recommendation from neurology at this time is to proceed with upper and lower bilateral lower extremity Doppler to rule out acute DVT, and to start anticoagulation starting tomorrow. On 10/04/2022 patient is sitting comfortably in chair. Patient remains nonverbal. Pradaxa has been started per cardiology and neurology recommendations. Current vital signs temp 97.5, heart rate 77, respiratory rate 16, blood pressure 1 5476 with pulse ox 93% on room air. Per cardiology at this time JESUS remains on hold due to difficulty in swallowing. On 10/05/2022 patient was seen and examined on the medical she is alert and oriented 3 in no apparent distress, she is sitting up in a chair, she still has significant facial drooping, she has complete aphasia, she tries to answer questions by nodding her head, she is still having significant difficulty with swallowing, cardiology note reviewed, no plans for JESUS at this time due to difficulty swallowing and the risk of aspiration, she was started on Pradaxa for anticoagulation, she is having difficulty swallowing the pill as it cannot be crushed. At this time will continue with physical therapy, occupational therapy, and speech therapy, will reassess in a.m. On 10/06/2022 patient was seen and examined the medical floor she is alert and oriented in no apparent distress, she is sitting up in a chair she still has complete aphasia, she is having difficulty swallowing, she is complaining of constipation, otherwise she denies any complaints there is no fever or chills no headache or dizziness no chest pain no shortness of breath no cough no nausea or vomiting no abdominal pain no diarrhea and no urinary symptoms. At this time, JESUS will be delayed until patient has better swallowing per cardiology, possibility of rehab admission discussed with patient however she is indicating that she wants to go home, possible discharge to home tomorrow if stable and no further recommendation from cardiology or neurology On 10/07/2022 patient is currently sitting in chair. Patient's son at bedside. Per patient's son patient had a fall this a.m. due to new onset of weakness to her right arm. Patient denies any injuries from fall but does report that the right arm weakness started last night. This is new per son. At this time will do a head CT and discussed with nursing staff to notify neurology services. patient denies chest pain or shortness of breath. Patient denies nausea vomiting or diarrhea. Patient denies any urinary burning or frequency. On 10/08/2022 patient was seen and examined on the telemetry floor she is alert responsive in no apparent distress she is still completely aphasic, she is answering questions by nodding her head, she is still having right sided facial drooping and difficulty swallowing, she also now has complete paralysis of the right upper extremity, neurology are following closely, they recommended JESUS however per their notes patient has refused to complete test. Medication were reviewed will continue with current management will discuss with neurology further treatment steps. On 10/09/2022 patient is currently resting comfortably in bed. Patient have some movement to right extremity no further new neurological symptoms. Patient still having right-sided facial drooping and difficulty swallowing. Patient's son is at bedside per family trying to convince patient to move forward with JESUS. Neurology services are following this time patient denies chest pain or shortness of breath. Patient denies nausea vomiting or diarrhea. Patient denies any urinary burning or frequency On 10/10/2022 patient was seen and examined on the telemetry floor she is alert and oriented 3 in no apparent distress she is still having right facial drooping, complete expressive aphasia, difficulty swallowing, and right upper extremity paralysis, she is scheduled for JESUS today, awaiting further input from neurology and cardiology, possible transfer to rehab on Wednesday if stable and no further recommendation for any testing and intervention. On 10/11/2022 patient is alert and oriented 3 currently sitting up in chair. Patient continues to have right facial drooping complete expressive aphasia, difficulty swallowing and right upper extremity paralysis. No new neurological symptoms noted. Patient did have JESUS completed. White blood cell trending up 15.6 will order chest x-ray urinalysis blood culture and consult infectious dis ease. On 10/12/2022 patient was seen and examined on the telemetry floor she is alert and oriented in no apparent distress, she is still having right sided facial drooping, complete expressive aphasia, and difficulty swallowing, she is also having severe paralysis of the right upper extremity. I have discussed her case in details with Dr. Rondon and with Dr. Dye on neurology, patient failed on Xarelto and had a stroke while she was taking Xarelto, recommendation by cardiology was to switch to Pradaxa, which was done a few days ago, however patient was not able to swallow Pradaxa pills, and it's not recommended that those pills are crushed, so cardiology switched her back to Xarelto, however upon discussion today with neurology Dr. Amadou Dye, he recommended to switch to Eliquis. At this time will discontinue Xarelto today and start with Eliquis in a.m. tomorrow. Patient also has elevated white blood count possibly related to aspiration even though chest x-ray is not revealing evidence of pneumonia, patient is followed by infectious disease she is maintained on IV antibiotic, wi ll continue to follow closely. There is a bed available for patient in [facility] rehab unit, however due to elevated white blood count and use of IV antibiotics, she is not stable enough yet for transfer. Will follow in a.m.. Prognosis is guarded. On 10/13/2022 patient was seen and examined on the telemetry floor she is alert responsive in no apparent distress, clinically there is no significant change in her condition since yesterday, her white blood count is increasing up to 24.2 from 16.[address] Berg is following antibiotic were changed today to Zosyn, vital exam reveals a temperature of 97.8 pulse 56 respiration 18 blood pressure 140/73 pulse ox 91% on room air. No new recommendation from neurology or cardiology, will continue to follow closely, prognosis is guarded Objective - Vital Signs Vital signs: Vital Signs Temp 97.8 F 10/13/22 08:00 Pulse 103 H 10/13/22 12:06 Resp 18 10/13/22 12:06 BP 140/73 10/13/22 08:00 Pulse Ox 91 L 10/13/22 12:00 FiO2 Intake & Output 10/12/22 10/13/22 10/13/22 18:59 06:59 18:59 Intake Total 120 20 130 Output Total 100 500 Balance 20 -480 130 Weight 63 kg Intake: IV 20 20 20 Invasive Line 3 20 20 20 Oral 100 0 110 Output: Urine 100 500 Other: Voiding Method Bedside Commode Bedside Commode Bedside Commode # Voids 1 - Exam In general patient is alert and oriented, able to communicate by writing on board in no apparent distress HEENT head normocephalic and atraumatic Neck is supple no JVD no goiter no lymphadenopathy no carotid bruit Chest examination is clear to auscultation no crackles no wheezing Cardiac exam reveals regular heart sounds S1 and S2 no gallops no murmurs Abdomen is soft nontender no organomegaly with normal bowel sounds Extremity exam reveals no edema no cyanosis or clubbing Neurological examination reveals complete expressive aphasia, and right facial drooping otherwise no focal deficit - Labs CBC & Chem 7: 10/13/22 11:58 10/13/22 11:58 Labs: Abnormal Lab Results - Last 24 Hours (Table) 10/09/22 10/13/22 10/13/22 Range/Units 16:37 11:58 11:58 WBC 24.2 H (3.8-10.6) k/uL Neutrophils # 22.1 H (1.3-7.7) k/uL Lymphocytes # 0.8 L (1.0-4.8) k/uL Monocytes # 1.1 H (0-1.0) k/uL Lupus Anticoag aPTT 80 H (<43) Sec(s) Lupus Anticoag PTT Mix 72 H (<43) Sec(s) Dil Nicholas Viper Venom 100 H (<44) Sec(s) LA dRVVT Confirm Positive A (Negative) dRVVT 50:50 75 H (<44) Sec(s) Lupus Hexagonal Phase Positive A (Negative) Sodium 146 H (137-145) mmol/L Chloride 108 H (98-107) mmol/L BUN 20 H (7-17) mg/dL Glucose 117 H (74-99) mg/dL AST 37 H (14-36) U/L Alkaline Phosphatase 231 H (38-126) U/L C-Reactive Protein 7.0 H (<1.0) mg/dL Albumin 3.4 L (3.5-5.0) g/dL Microbiology - Last 24 Hours (Table) 10/11/22 15:18 Blood Culture - Preliminary Blood 10/11/22 10:17 Blood Culture - Preliminary Blood Assessment and Plan Plan: Expressive aphasia and right facial droop secondary to ischemic stroke Reoccurring ischemic stroke with right arm paralysis Leukocytosis. Chest x-ray, urinary analysis blood culture ordered consult infectious disease Underlying history of lung cancer Underlying history of breast cancer Previous history of DVT 3 weeks ago, maintained on Xarelto Underlying history of left pleural effusion History of atrial fibrillation At this time patient was seen and examined in the emergency room Home medications reviewed and reordered Cardiology, pulmonary and neurology service is following JESUS completed on 10/10/2022 Will follow closely
[2022-10-13] MEDS: ATORVASTATIN 40 MG TAB PO SCH (21:09)
--- NOTE | 2022-10-13 22:49 | P.PN ---
Subjective Progress Note Date: 10/13/22 Principal diagnosis: Leukocytosis Patient is a 72-year-old female with multiple comorbidities has been in the hospital for more than 10 days currently being evaluated and treatment for possible stroke and noticed to have elevated white count. On today's evaluation that is 10/13/2022 patient continues to be afebrile patient is breathing comfortably on 4 L nasal cannula, the patient denies any chest pain she did have some cough but not bringing up any sputum no vomiting or diarrhea has been reported Objective - Vital Signs Vital signs: Vital Signs Temp 97.8 F 10/13/22 08:00 Pulse 56 L 10/13/22 08:00 Resp 18 10/13/22 08:00 BP 140/73 10/13/22 08:00 Pulse Ox 91 L 10/13/22 08:00 FiO2 Intake & Output 10/12/22 10/13/22 10/13/22 18:59 06:59 18:59 Intake Total 120 20 120 Output Total 100 500 Balance 20 -480 120 Weight 63 kg Intake: IV 20 20 10 Invasive Line 3 20 20 10 Oral 100 0 110 Output: Urine 100 500 Other: Voiding Method Bedside Commode Bedside Commode Bedside Commode # Voids 1 - Exam GENERAL DESCRIPTION: Elderly female up in the chair in no distress RESPIRATORY SYSTEM: Unlabored breathing , decreased breath sounds at bases HEART: S1 S2 regular rate and rhythm ,no loud murmurs ABDOMEN: Soft , no tenderness EXTREMITIES: No edema feet - Labs CBC & Chem 7: 10/13/22 11:58 10/13/22 11:58 Labs: Abnormal Lab Results - Last 24 Hours (Table) 10/09/22 Range/Units 16:37 Lupus Anticoag aPTT 80 H (<43) Sec(s) Lupus Anticoag PTT Mix 72 H (<43) Sec(s) Dil Nicholas Viper Venom 100 H (<44) Sec(s) LA dRVVT Confirm Positive A (Negative) dRVVT 50:50 75 H (<44) Sec(s) Lupus Hexagonal Phase Positive A (Negative) Microbiology - Last 24 Hours (Table) 10/11/22 15:18 Blood Culture - Preliminary Blood 10/11/22 10:17 Blood Culture - Preliminary Blood Assessment and Plan (1) Leukocytosis Current Visit: Yes Status: Acute Code(s): D72.829 - ELEVATED WHITE BLOOD CELL COUNT, UNSPECIFIED SNOMED Code(s): 969810957 (2) Pneumonia Current Visit: Yes Status: Acute Code(s): J18.9 - PNEUMONIA, UNSPECIFIED ORGANISM SNOMED Code(s): 228949940 Plan: 1patient with elevated white count and this patient admitted to hospital about 10 days ago predominantly for strokelike symptoms and nonverbal MRI was suspicious for possible embolic phenomena and is being evaluated by cardiology pulmonary service since patient did receive 1 dose of steroids on admission but no steroids since then has been complaining of some sores in the mouth and conc kinza for possible thrush/oropharyngeal candidiasis, patient did not have any fever urine has been negative chest x-ray bilateral effusion with left greater than right progressively suspicious disease with question of possible fluid related however the patient also complaining of some cough with sputum production underlying pneumonia less likely but not entirely excluded 2-blood cultures obtained will be followed we are waiting for CRP and a procalcitonin sputum culture has been requested 3-Patient noticed to have worsening of the white count was up to 24,000 today and abnormal x-ray concerning for possible pneumonia questionable aspiration etiology we will discontinue Unasyn started patient on Zosyn and try to obtain a sputum and monitor clinical course Time with Patient: Less than 30
[2022-10-14] MEDS: carvediloL 3.125 MG TAB PO SCH ×2 (06:18→18:11)
[2022-10-14] MEDS: PIPERACILLIN-TAZOBACTAM 3.375 GM in SODIUM CHLORIDE 0.9% 100 ML IVPB SCH ×2 (10:11→17:59)
[2022-10-14] MEDS: FLUCONAZOLE 100 MG TAB PO SCH (10:44)
[2022-10-14] MEDS: ACETAMINOPHEN TAB 325 MG TAB PO PRN ×2 (10:44→18:11)
[2022-10-14] MEDS: ANASTROZOLE 1 MG TAB PO SCH (10:45)
[2022-10-14] MEDS: lisinopriL 5 MG TAB PO SCH ×2 (10:45→20:36)
[2022-10-14] MEDS: CLOPIDOGREL 75 MG TAB PO SCH (10:45)
[2022-10-14] MEDS: APIXABAN 5 MG TAB PO SCH ×2 (10:45→20:36)
[2022-10-14] MEDS: LACTULOSE 20 GM/30 ML CUP PO SCH ×4 (10:45→21:46)
[2022-10-14] MEDS: OSIMERTINIB 80 MG PO SCH (10:46)
[2022-10-14 11:37] LABS: Basophils % (A) 0 %; Eosinophils # (A) 0.1 k/uL (0-0.7); Eosinophils % (A) 0 %; HCT 46.3 % (34.0-46.0); HGB 14.7 gm/dL (11.4-16.0); Lymphocytes % (A) 4 %; MCH 29.1 pg (25.0-35.0); MCHC 31.7 g/dL (31.0-37.0); MCV 92.1 fL (80.0-100.0); Mean Platelet Volume 9.2; Monocytes # (A) 1.3 k/uL (0-1.0); Monocytes % (A) 5 %; Neutrophils % (A) 91 %; Platelet Count 194 k/uL (150-450); RBC 5.03 m/uL (3.80-5.40); RDW 14.1 % (11.5-15.5); WBC 26.4 k/uL (3.8-10.6)
[2022-10-14] MEDS: DOCUSATE 100 MG CAP PO SCH ×2 (11:38→20:36)
[2022-10-14] MEDS: SODIUM CHLORIDE 0.9% 1,000 ML IV SCH (11:38)
--- NOTE | 2022-10-14 11:46 | P.PN ---
Subjective Progress Note Date: 10/14/22 Kat Kim, is a 72-year-old female who presented to [facility] emergency room with a chief complaint difficulty with her speech, and right facial drooping, patient presented to emergency room with similar complaints yesterday, at that time she [facility] however she felt that she was improving and she opted to go home. However over the next several hours patient developed complete aphasia, she was brought back to the emergency room by her family. She was evaluated in the emergency room vital examination on presentation revealed a temperature of 99 pulse 84 respiration 18 blood pressure 160/87 pulse ox 94% on room air Laboratory data revealed a white blood count of 7.1 hemoglobin 14.6 platelet count 167 sodium 137 potassium 4.3 chloride 102 CO2 29 BUN 9 creatinine 0.56 urine analysis revealed no evidence of infection and urine toxicology screen was negative Testing in the emergency room revealed, computed tomography scan of the brain without contrast was done in the emergency room and revealed no acute intracranial process, CT angiogram of the brain done in the emergency room revealed no evidence of dissection of the cervical internal carotid arteries or vertebral arteries or any evidence of significant stenosis at the carotid bifurcation there was no evidence of intracranial high-grade stenosis or intracranial aneurysm Patient was admitted to medical floor for further evaluation and treatment, neurology consultation was requested Past medical history is significant for history of breast cancer, history of stacey ng cancer, history of atrial fibrillation, history of lower extremity DVT, patient was maintained on Xarelto At home On 10/02/2022. Patient is currently resting in room remains with difficulty in speech and right facial drooping. MRI of the brain was completed showing scattered foci of restricted diffusion compatible with acute or subacute CVA given multiple vascular distributions correlate for emboli phenomenon. Neurology services are following. Cardiology services also consulted. Current vital signs temp 98.1, heart rate 74, blood pressure 129/67 pulse ox of 94% on room air On 10/03/2022, patient was seen and examined on telemetry, case was discussed in details with Dr. Amadou López neurologist, patient is developing more difficulty with swallowing, recommendation from neurology is to proceed with JESUS, to rule out cardiac thrombus or PFO. However due to significant difficulty with swallowing, cardiology wanted to wait at this time on JESUS. Recommendation from neurology at this time is to proceed with upper and lower bilateral lower extremity Doppler to rule out acute DVT, and to start anticoagulation starting tomorrow. On 10/04/2022 patient is sitting comfortably in chair. Patient remains nonverbal. Pradaxa has been started per cardiology and neurology recommendations. Current vital signs temp 97.5, heart rate 77, respiratory rate 16, blood pressure 1 [id number] with pulse ox 93% on room air. Per cardiology at this time JESUS remains on hold due to difficulty in swallowing. On 10/05/2022 patient was seen and examined on the medical she is alert and oriented 3 in no apparent distress, she is sitting up in a chair, she still has significant facial drooping, she has complete aphasia, she tries to answer questions by nodding her head, she is still having significant difficulty with swallowing, cardiology note reviewed, no plans for JESUS at this time due to difficulty swallowing and the risk of aspiration, she was started on Pradaxa for anticoagulation, she is having difficulty swallowing the pill as it cannot be crushed. At this time will continue with physical therapy, occupational therapy, and speech therapy, will reassess in a.m. On 10/06/2022 patient was seen and examined the medical floor she is alert and oriented in no apparent distress, she is sitting up in a chair she still has complete aphasia, she is having difficulty swallowing, she is complaining of constipation, otherwise she denies any complaints there is no fever or chills no headache or dizziness no chest pain no shortness of breath no cough no nausea or vomiting no abdominal pain no diarrhea and no urinary symptoms. At this time, JESUS will be delayed until patient has better swallowing per cardiology, possibility of rehab admission discussed with patient however she is indicating that she wants to go home, possible discharge to home tomorrow if stable and no further recommendation from cardiology or neurology On 10/07/2022 patient is currently sitting in chair. Patient's son at bedside. Per patient's son patient had a fall this a.m. due to new onset of weakness to her right arm. Patient denies any injuries from fall but does report that the right arm weakness started last night. This is new per son. At this time will do a head CT and discussed with nursing staff to notify neurology services. patient denies chest pain or shortness of breath. Patient denies nausea vomiting or diarrhea. Patient denies any urinary burning or frequency. On 10/08/2022 patient was seen and examined on the telemetry floor she is alert responsive in no apparent distress she is still completely aphasic, she is answering questions by nodding her head, she is still having right sided facial drooping and difficulty swallowing, she also now has complete paralysis of the right upper extremity, neurology are following closely, they recommended JESUS however per their notes patient has refused to complete test. Medication were reviewed will continue with current management will discuss with neurology further treatment steps. On 10/09/2022 patient is currently resting comfortably in bed. Patient have some movement to right extremity no further new neurological symptoms. Patient still having right-sided facial drooping and difficulty swallowing. Patient's son is at bedside per family trying to convince patient to move forward with JESUS. Neurology services are following this time patient denies chest pain or shortness of breath. Patient denies nausea vomiting or diarrhea. Patient denies any urinary burning or frequency On 10/10/2022 patient was seen and examined on the telemetry floor she is alert and oriented 3 in no apparent distress she is still having right facial drooping, complete expressive aphasia, difficulty swallowing, and right upper extremity paralysis, she is scheduled for JESUS today, awaiting further input from neurology and cardiology, possible transfer to rehab on Wednesday if stable and no further recommendation for any testing and intervention. On 10/11/2022 patient is alert and oriented 3 currently sitting up in chair. Patient continues to have right facial drooping complete expressive aphasia, difficulty swallowing and right upper extremity paralysis. No new neurological symptoms noted. Patient did have JESUS completed. White blood cell trending up 15.6 will order chest x-ray urinalysis blood culture and consult infectious dis ease. On 10/12/2022 patient was seen and examined on the telemetry floor she is alert and oriented in no apparent distress, she is still having right sided facial drooping, complete expressive aphasia, and difficulty swallowing, she is also having severe paralysis of the right upper extremity. I have discussed her case in details with Dr. Rondon and with Dr. Dye on neurology, patient failed on Xarelto and had a stroke while she was taking Xarelto, recommendation by cardiology was to switch to Pradaxa, which was done a few days ago, however patient was not able to swallow Pradaxa pills, and it's not recommended that those pills are crushed, so cardiology switched her back to Xarelto, however upon discussion today with neurology Dr. Amadou Dye, he recommended to switch to Eliquis. At this time will discontinue Xarelto today and start with Eliquis in a.m. tomorrow. Patient also has elevated white blood count possibly related to aspiration even though chest x-ray is not revealing evidence of pneumonia, patient is followed by infectious disease she is maintained on IV antibiotic, wi ll continue to follow closely. There is a bed available for patient in [facility] rehab unit, however due to elevated white blood count and use of IV antibiotics, she is not stable enough yet for transfer. Will follow in a.m.. Prognosis is guarded. On 10/13/2022 patient was seen and examined on the telemetry floor she is alert responsive in no apparent distress, clinically there is no significant change in her condition since yesterday, her white blood count is increasing up to 24.2 from 16.[address] Berg is following antibiotic were changed today to Zosyn, vital exam reveals a temperature of 97.8 pulse 56 respiration 18 blood pressure 140/73 pulse ox 91% on room air. No new recommendation from neurology or cardiology, will continue to follow closely, prognosis is guarded On 10/14/2022 patient is alert responsive sitting in bed patient does appear to have increased shortness of breath requiring increased oxygen at 5 L. This time a ordered stat chest x-ray and consult pulmonary services. Patient is on antibiotics of IV Zosyn. Infectious disease services are following. Patient denies chest pain. Patient denies nausea vomiting or diarrhea. She remains on anticoagulation of eliquis and Plavix Objective - Vital Signs Vital signs: Vital Signs Temp 98.2 F 10/14/22 09:30 Pulse 102 H 10/14/22 09:30 Resp 24 10/14/22 09:30 BP 148/92 10/14/22 09:30 Pulse Ox 91 L 10/14/22 09:30 FiO2 Intake & Output 10/13/22 10/14/22 10/14/22 18:59 06:59 18:59 Intake Total 130 Output Total 450 Balance 130 -450 Intake: IV 20 Invasive Line 3 20 Oral 110 Output: Urine 450 Other: Voiding Method Bedside Commode Bedside Commode Bedside Commode # Voids 1 1 # Bowel Movements 1 1 - Exam In general patient is alert and oriented, able to communicate by writing on boa rd in no apparent distress HEENT head normocephalic and atraumatic Neck is supple no JVD no goiter no lymphadenopathy no carotid bruit Chest examination is clear to auscultation no crackles no wheezing Cardiac exam reveals regular heart sounds S1 and S2 no gallops no murmurs Abdomen is soft nontender no organomegaly with normal bowel sounds Extremity exam reveals no edema no cyanosis or clubbing Neurological examination reveals complete expressive aphasia, and right facial drooping otherwise no focal deficit - Labs CBC & Chem 7: 10/13/22 11:58 10/13/22 11:58 Labs: Abnormal Lab Results - Last 24 Hours (Table) 10/13/22 10/13/22 Range/Units 11:58 11:58 WBC 24.2 H (3.8-10.6) k/uL Neutrophils # 22.1 H (1.3-7.7) k/uL Lymphocytes # 0.8 L (1.0-4.8) k/uL Monocytes # 1.1 H (0-1.0) k/uL Sodium 146 H (137-145) mmol/L Chloride 108 H (98-107) mmol/L BUN 20 H (7-17) mg/dL Glucose 117 H (74-99) mg/dL AST 37 H (14-36) U/L Alkaline Phosphatase 231 H (38-126) U/L C-Reactive Protein 7.0 H (<1.0) mg/dL Albumin 3.4 L (3.5-5.0) g/dL Microbiology - Last 24 Hours (Table) 10/11/22 15:18 Blood Culture - Preliminary Blood 10/11/22 10:17 Blood Culture - Preliminary Blood Assessment and Plan Plan: Expressive aphasia and right facial droop secondary to ischemic stroke Reoccurring ischemic stroke with right arm paralysis Leukocytosis. Chest x-ray, urinary analysis blood culture ordered consult infectious disease Increased shortness of breath. Stat chest x-ray order pulmonary services reconsulted Underlying history of lung cancer Underlying history of breast cancer Previous history of DVT 3 weeks ago, maintained on Xarelto Underlying history of left pleural effusion History of atrial fibrillation At this time patient was seen and examined in the emergency room Home medications reviewed and reordered Cardiology, pulmonary and neurology service is following JESUS completed on 10/10/2022 Will follow closely
[2022-10-14 12:15] LABS: ALT 25 U/L (4-34); AST 37 U/L (14-36); African American GFR (CKD) >90 (>60 ml/min/1.73 sqM); Albumin 3.4 g/dL (3.5-5.0); Alkaline Phosphatase 243 U/L (38-126); Anion Gap 9 mmol/L; Blood Urea Nitrogen 22 mg/dL (7-17); Calcium 9.2 mg/dL (8.4-10.2); Carbon Dioxide 28 mmol/L (22-30); Chloride 109 mmol/L (98-107); Glucose 123 mg/dL (74-99); Non-African American GFR(CKD) >90 (>60 ml/min/1.73 sqM); Sodium 146 mmol/L (137-145); Total Bilirubin 0.7 mg/dL (0.2-1.3); Total Protein 6.4 g/dL (6.3-8.2)
[2022-10-14 12:54] LABS: Anti-Thrombin III Activity 108 % (79-109)
--- NOTE | 2022-10-14 13:23 | P.PN ---
Subjective Progress Note Date: 10/14/22 The patient is seen at bedside and per nurse she is about the same and no new issues. Objective - Vital Signs Vital signs: Vital Signs Temp 98.2 F 10/14/22 09:30 Pulse 102 H 10/14/22 09:30 Resp 24 10/14/22 09:30 BP 148/92 10/14/22 09:30 Pulse Ox 91 L 10/14/22 09:30 FiO2 Intake & Output 10/13/22 10/14/22 10/14/22 18:59 06:59 18:59 Intake Total 130 250 Output Total 450 Balance 130 -450 250 Intake: IV 20 Invasive Line 3 20 Oral 110 250 Output: Urine 450 Other: Voiding Method Bedside Commode Bedside Commode Bedside Commode # Voids 1 1 # Bowel Movements 1 1 - Exam Sitting up in bed and nods to doing about the same. Neuro: Patient is awake alert. She has expressive aphasia predominately. She'll follo w few simple commands (such as thumbs up, sticking out her tongue and wiggling her toes) but not consistent with following right commands. Cranial nerve: Visual patel assessment is hard to assess because of her cooperation. EOM she's tracking throughout the room. Patient has right lower facial droop that's moderate in severity. Patient is mute. Motor: The strength is right upper extremity is plegic while right lower is 4+ to 5-. Otherwise left is 5/5 throughout. Decrease tone over the right upper. Some of the workup during his hospital visit consisted of: Lipid panel triglycerides 79, cholesterol is 204, LDLs 128, HDL 59. CT head is reported as no acute intracranial process. I personally reviewed that a CT and there is no acute or subacute ischemia seen. There is no mass affect. CT angiography of the head and neck was reported as no evidence of dissection of the cervical internal carotid arteries or vertebral artery or any evidence of significant stenosis at the carotid bifurcation. No evidence of intracranial high-grade stenosis or intracranial aneurysm. Intracranial atherosclerosis of the internal carotid artery without hemodynamic stenosis. Right and increased size of left pleural effusion. There is a pleural sign in the left which could represent empyema. Persistent that scattered nodular opacity likely representing metastatic disease from the patient known malignancy. EKG is reported as sinus rhythm. Low QRS voltage URIne Drug screen is negative. MRI brain is reported as scattered foci of restricted diffusion compatible with acute/subacute CVA. Given multiple vascular distribution correlate for embolic phenomena. No abnormal postcontrast enhancement the, no evidence for mass. Nonspecific white matter changes likely secondary to chronic small vessel ischemic disease. I personally reviewed the MRI and I agree with the report. Patient has restriction diffusion over bilateral frontal left more than the right with right parietal occipital region The echo was reported as suboptimal acoustic windows. Contrast echo study performed. Borderline normal left ventricle systolic function septal bulge. There is septal and inferior basal hypokinesis. Routine EEG is normal. There is no focal slowing, epileptiform discharges or seizure on the EEG. Venous duplex of the upper and lower extremities negative ESR 24 (normal is 0.-20), GOLDEN neg, anticardiolipin negat, Prothormbin [id number] is neg, Factor V leiden negate, antithromb III ag neg, Protein C/S ag are normal. Lupus anticoagulant is present. - Labs CBC & Chem 7: 10/14/22 10:44 10/14/22 10:44 Labs: Abnormal Lab Results - Last 24 Hours (Table) 10/09/22 10/14/22 10/14/22 Range/Units 16:37 10:44 10:44 WBC 26.4 H (3.8-10.6) k/uL Hct 46.3 H (34.0-46.0) % Neutrophils # 24.0 H (1.3-7.7) k/uL Monocytes # 1.3 H (0-1.0) k/uL Protein C Activity >119 H (54-117) % Sodium 146 H (137-145) mmol/L Chloride 109 H (98-107) mmol/L BUN 22 H (7-17) mg/dL Glucose 123 H (74-99) mg/dL AST 37 H (14-36) U/L Alkaline Phosphatase 243 H (38-126) U/L Albumin 3.4 L (3.5-5.0) g/dL Microbiology - Last 24 Hours (Table) 10/11/22 15:18 Blood Culture - Preliminary Blood 10/11/22 10:17 Blood Culture - Preliminary Blood Assessment and Plan Assessment: This is a 72-year-old woman who had the expressive aphasia and right facial weakness since 09/30/2022. Initially she presented to our facility yesterday and her symptoms has improved except some subtle right lower facial weakness but today as she presented again with expressive aphasia, dysarthria with right facial weakness Recurrent ischemic strokes. Patient apparently had a new stroke with new right arm paresis. Her right facial droop and aphasia also seems to have gotten worse. Acute ischemic stroke (over bilateral hemisphere: bilateral frontal L>R, right parietal and occipital region). Stroke appears embolic in nature: Probable embolic. Patient has failed Xarelto, now Pradaxa as well. JESUS is negative. Leukocytosis that is trending up without any fever and I.D. feels questionable aspiration pneumonia. History of left lung cancer History of right breast cancer History of recent DVT about 3 weeks ago and was on Xarelto Left Pleural effusion on CTA History of pleural effusion History of atrial fibrillation and in past was on anticoagulation then stopped then after DVT 3 weeks ago restarted it Plan: Most recent CT head is reported as no acute hemorrhage or mass effect. New area of 1.5 cm low attenuation superior left parietal with sulcal enhancement measuri ng 1.5 cm. Not seen with surgery on the previous exam or MRI. No area of acute to subacute ischemia suspected. Previously noted area of abnormal low attenuation involving the left parietal frontal and right parietal lobe correlate for previous area of abnormal signal on MRI suggestive of recent i nfarct. CTA of head and neck showed no significant change from recent CTA study. No LVO. Patient has failed Xarelto, and cardiology placed her on Pradaxa but since she could not swallow Pradaxa cardiology switched her back to Xarelto. I spoke with primary team and we agreed to place her on Eliquis since she failed Xarelto and per nurse since no issues swallowing Eliquis. Patient is also on Plavix. Lupus anticoagulant is positive and I spoke with Hematology PROCESS ASSISTANT and was told that is considered normal since patient is on anticoagulation. Pending Beta-2 glycoprotein abs. Hematology is on board. JESUS is negative for PFO. Normal left atrial appendiage. Normal ventricle seizure and function. No evidence of aortic stenosis. Continue Lipitor 40 mg daily at bedtime second stroke prophylaxis Continue neuro checks Cardiac monitoring, with telemetry showing sinus rhythm at this time. PT OT and BODY TECHNICIAN/PAINTER are consulted Pulmonary team is consulted for pleural effusion and history of lung cancer For trending up of Leukocytosis I.D. team is on board. We'll defer the rest of the medical management to primary team Recommend the patient to follow-up with neurologist as outpatient within 1-2 weeks. Patient will benefit from inpatient rehab. For DVT prophylaxis: Vianney. Discussed case with her nurse and Hematology team. Will continue to follow. Dr. Appiha will start neurology service tomorrow A.M. Time with Patient: Less than 30
--- NOTE | 2022-10-14 13:48 | XR ---
EXAMINATION TYPE: XR chest 2V DATE OF EXAM: 10/14/2022 COMPARISON: NONE TECHNIQUE: PA and lateral views submitted. HISTORY: GIANNA FINDINGS A bilateral consolidation and pleural effusion with marked left apical pleural thickening is stable. Masslike 2.5 cm density in the right upper lobe. Heart size is stable there is hypertrophic change of the spine. Diffuse interstitial pattern. IMPRESSION: 1. Diffuse pleural parenchymal changes are stable correlate for diffuse pneumonia or CHF. No intrapul monary masses in the differential diagnosis. Recommend CT chest.
--- NOTE | 2022-10-14 13:58 | CT ---
EXAMINATION TYPE: CT chest wo con DATE OF EXAM: 10/14/2022 COMPARISON: Chest CT September 11, 2022. Chest x-ray earlier today HISTORY: SOB CT DLP: 343.1 mGycm. Automated Exposure Control for Dose Reduction was Utilized. TECHNIQUE: CT scan of the thorax is performed without IV contrast. FINDINGS: LUNGS: Persistent small nonsimple left-sided pleural fluid collection greatest in size in the apex. P ersistent diffuse left lung groundglass opacity and irregular consolidation with left-sided volume lo ss. Stable 2.5 x 1.7 cm left mid lung nodule axial image 23. There is now moderate right-sided pleural fluid collection with associated right lung compressive ate lectasis. There is groundglass opacity and organizing consolidation in the central right upper lobe o n current study. MEDIASTINUM: Lack of IV contrast is noted to limit evaluation for mediastinal and especially hilar ad enopathy. There are no definitive greater than 1 cm hilar or mediastinal lymph nodes. No cardiomega ly or pericardial effusion is seen. Coronary artery calcification and/or stents are redemonstrated. C alcification at the level of the mitral valve. Prominent pulmonary arteries suggesting underlying pul monary hypertension. OTHER: Dense fibroglandular tissue throughout the bilateral breasts redemonstrated. IMPRESSION: Stable small nonsimple left-sided pleural fluid collection. Persistent left-sided volume loss. Persistent diffuse left lung opacities could reflect fibrosis and/or edema or possibly posttrea tment change. Persistent suspicious stable 2.5 cm left midlung mass or neoplasm. There is new Moderate size right pleural effusion. There is new right upper lobe edema and/or develop ing acute infiltrate.
--- NOTE | 2022-10-14 14:11 | P.PN ---
Subjective Progress Note Date: 10/14/22 Principal diagnosis: Leukocytosis Patient is a 72-year-old female with multiple comorbidities has been in the hospital for more than 10 days currently being evaluated and treatment for possible stroke and noticed to have elevated white count. On today's evaluation that is 10/14/2022 patient remains to be afebrile , the patient is breathing comfortably on 4 L nasal cannula, the patient denies any chest pain patient did have some cough but not bringing up any sputum for the nursing staff no vomiting or diarrhea has been reported Objective - Vital Signs Vital signs: Vital Signs Temp 98.1 F 10/14/22 03:47 Pulse 96 10/14/22 06:17 Resp 20 10/14/22 03:47 BP 147/75 10/14/22 03:47 Pulse Ox 90 L 10/14/22 06:17 FiO2 Intake & Output 10/13/22 10/14/22 10/14/22 18:59 06:59 18:59 Intake Total 130 Output Total 450 Balance 130 -450 Intake: IV 20 Invasive Line 3 20 Oral 110 Output: Urine 450 Other: Voiding Method Bedside Commode Bedside Commode # Voids 1 1 # Bowel Movements 1 1 - Exam GENERAL DESCRIPTION: Elderly female up in the chair in no distress RESPIRATORY SYSTEM: Unlabored breathing , decreased breath sounds at bases HEART: S1 S2 regular rate and rhythm ,no loud murmurs ABDOMEN: Soft , no tenderness EXTREMITIES: No edema feet - Labs CBC & Chem 7: 10/14/22 10:44 10/14/22 10:44 Labs: Abnormal Lab Results - Last 24 Hours (Table) 10/13/22 10/13/22 Range/Units 11:58 11:58 WBC 24.2 H (3.8-10.6) k/uL Neutrophils # 22.1 H (1.3-7.7) k/uL Lymphocytes # 0.8 L (1.0-4.8) k/uL Monocytes # 1.1 H (0-1.0) k/uL Sodium 146 H (137-145) mmol/L Chloride 108 H (98-107) mmol/L BUN 20 H (7-17) mg/dL Glucose 117 H (74-99) mg/dL AST 37 H (14-36) U/L Alkaline Phosphatase 231 H (38-126) U/L C-Reactive Protein 7.0 H (<1.0) mg/dL Albumin 3.4 L (3.5-5.0) g/dL Microbiology - Last 24 Hours (Table) 10/11/22 15:18 Blood Culture - Preliminary Blood 10/11/22 10:17 Blood Culture - Preliminary Blood Assessment and Plan (1) Leukocytosis Current Visit: Yes Status: Acute Code(s): D72.829 - ELEVATED WHITE BLOOD CELL COUNT, UNSPECIFIED SNOMED Code(s): 260671524 (2) Pneumonia Current Visit: Yes Status: Acute Code(s): J18.9 - PNEUMONIA, UNSPECIFIED OR GANISM SNOMED Code(s): 404369978 Plan: 1patient with elevated white count and this patient admitted to hospital about 10 days ago predominantly for strokelike symptoms and nonverbal MRI was suspicious for possible embolic phenomena and is being evaluated by cardiology pulmonary service since patient did receive 1 dose of steroids on admission but no steroids since then has been complaining of some sores in the mouth and concern for possible thrush/oropharyngeal candidiasis, patient did not have any fever urine has been negative chest x-ray bilateral effusion with left greater than right progressively suspicious disease with question of possible fluid related however the patient also complaining of some cough with sputum production underlying pneumonia less likely but not entirely excluded 2-blood cultures has been negative so far patient did have elevated CRP of 7.0 however did have a normal procalcitonin sputum culture has been requested 3-Patient noticed to have worsening of the white count was up to 26,000 today and abnormal x-ray concerning for possible pneumonia and effusion question of possible loculated effusion we'll obtain CT of the chest continue with the Zosyn discussed with the admitting team Time with Patient: Less than 30
--- NOTE | 2022-10-14 15:46 | P.PN ---
Subjective Progress Note Date: 10/14/22 Principal diagnosis: History of breast cancer, metastatic lung cancer, on treatment for both. Admitted with CVA symptoms In f/u today pt cont to not be able to speak, she is still replying with head nods, though today she does not seem to be responding appropriately. Her resp are shallow and rapid. Objective - Vital Signs Vital signs: Vital Signs Temp 98.2 F 10/14/22 09:30 Pulse 101 H 10/14/22 11:50 Resp 18 10/14/22 11:50 BP 123/74 10/14/22 11:50 Pulse Ox 92 L 10/14/22 11:50 FiO2 Intake & Output 10/13/22 10/14/22 10/14/22 18:59 06:59 18:59 Intake Total 130 750 Output Total 450 Balance 130 -450 750 Intake: IV 20 Invasive Line 3 20 Oral 110 750 Output: Urine 450 Other: Voiding Method Bedside Commode Bedside Commode Bedside Commode # Voids 1 1 # Bowel Movements 1 1 - Constitutional General appearance: Present: average body habitus, cooperative, mild distress - EENT Eyes: Present: anicteric sclerae, EOMI ENT: Present: hearing grossly normal (pt responds to normal volume voice) - Respiratory Details: tachypnea - Cardiovascular Heart sounds: normal: S1, S2 - Peripheral edema leg Peripheral Edema: bilateral: None - Neurologic Neurologic: Present: focal deficits - Musculoskeletal Musculoskeletal: Present: right sided weakness - Psychiatric Psychiatric Comment(s): alert - Labs CBC & Chem 7: 10/14/22 10:44 10/14/22 10:44 Labs: Abnormal Lab Results - Last 24 Hours (Table) 10/09/22 10/14/22 10/14/22 Range/Units 16:37 10:44 10:44 WBC 26.4 H (3.8-10.6) k/uL Hct 46.3 H (34.0-46.0) % Neutrophils # 24.0 H (1.3-7.7) k/uL Monocytes # 1.3 H (0-1.0) k/uL Protein C Activity >119 H (54-117) % Sodium 146 H (137-145) mmol/L Chloride 109 H (98-107) mmol/L BUN 22 H (7-17) mg/dL Glucose 123 H (74-99) mg/dL AST 37 H (14-36) U/L Alkaline Phosphatase 243 H (38-126) U/L Albumin 3.4 L (3.5-5.0) g/dL Microbiology - Last 24 Hours (Table) 10/11/22 15:18 Blood Culture - Preliminary Blood 10/11/22 10:17 Blood Culture - Preliminary Blood - Imaging and Cardiology Chest x-ray: report reviewed CT scan - chest: report reviewed Assessment and Plan (1) Cerebrovascular accident (CVA) Current Visit: Yes Status: Acute Priority: High Code(s): I63.9 - CEREBRAL INFARCTION, UNSPECIFIED SNOMED Code(s): 705829812 (2) Cancer of lung Current Visit: Yes Status: Acute Priority: Medium Code(s): C34.90 - MALIGNANT NEOPLASM OF UNSP PART OF UNSP BRONCHUS OR LUNG SNOMED Code(s): 521756682 (3) History of breast cancer Current Visit: No Status: Chronic Priority: Medium Code(s): Z85.3 - PERSONAL HISTORY OF MALIGNANT NEOPLASM OF BREAST SNOMED Code(s): 863921290 Plan: Recurrent CVA -JESUS neg -Was on xarelto for DVT when she developed CVA. Now on eliquis and plavix -Antiphospholipid ab work up neg. Regarding the lupus anticoagulant, being positive while on anticoagulation is not considered a true positive. If it is neg it is a true negative. It would be rechecked once on DOAC. Pending beta 2 glycoprotein 1 ab. If positive, AC with LMWH or coumadin vs DOAC is preferred based on current literature -Discussed case with Neurology. Breast cancer -cont arimidex. 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 She is current on f/u and has been doing well -F/U with Medical Onc after rehab Pt change in condition was discussed with HISTORICAL INTERPRETER. Concerns for aspiration or developing pneumonia. CT/CXR results concerning for the same. Abx ordered per ID. Pulm consulted.
[2022-10-14] MEDS: ATORVASTATIN 40 MG TAB PO SCH (20:36)
[2022-10-15] MEDS: PIPERACILLIN-TAZOBACTAM 3.375 GM in SODIUM CHLORIDE 0.9% 100 ML IVPB SCH ×3 (00:34→17:36)
[2022-10-15] MEDS ORDERED: DILTIAZEM DRIP BOLUS FROM BAG 1 MG SOLN IV ONE (04:12)
[2022-10-15] MEDS ORDERED: DILTIAZEM 125 MG in SODIUM CHLORIDE 0.9% 100 ML IV SCH (04:15)
[2022-10-15 04:33] LABS: Glucose,Whole Blood 104 mg/dL (70-110)
[2022-10-15] MEDS ORDERED: FUROSEMIDE 10 MG/ML 4 ML VIAL IV STA (04:44)
[2022-10-15] MEDS: carvediloL 3.125 MG TAB PO SCH ×2 (06:29→17:38)
--- NOTE | 2022-10-15 08:26 | US ---
EXAMINATION TYPE: US chest DATE OF EXAM: 10/15/2022 COMPARISON: NONE CLINICAL INDICATION: Female, 72 years old with history of pleural effusions; bilateral pleural effusi on TECHNIQUE: Targeted ultrasound of the posterior lower bilateral hemithoraces EXAM MEASUREMENTS: Right Pleural Effusion pocket size: 14.7 cm Right skin surface to fluid distance: 4.8 cm Left Pleural Effusion pocket size: no significant fluid collection at this time Right side marked for possible thoracentesis outside the dept. Left side NOT marked for possible thoracentesis outside the dept. Pulmonologists are able to review the images in the patient?s EMR. IMPRESSIONS: 1. Large right pleural effusion. 2. No sizable left pleural effusion.
--- NOTE | 2022-10-15 08:30 | P.PN ---
Subjective Progress Note Date: 10/15/22 Principal diagnosis: Left pleural effusion 72-year-old female with a history of breast cancer, presents to the emergency department on October 01, complaining of strokelike symptoms. The patient apparently had a slight right-sided facial droop, and was unable to speak. The patient was admitted to the hospital, and we are asked to see her for her chronic left-sided effusion. The patient has had a thoracentesis in the past, which I believe was done at [facility]. Currently, the patient's on room air, and not receiving any IV fluids. The speech pathologist was in room with her. We saw her in 378. Her medical history includes rest cancer, hypertension, myocardial infarction, osteoarthritis, and apparently the patient is a lifelong nonsmoker. She has had a catheterization with stent placement in her right coronary artery. She appears in no distress. CBC is completely normal. PT 12.3 with an INR 1.2. PTT is 31.6. Electrolytes are normal including sodium, potassium, chloride, carbon dioxide, anion gap, BUN, and creatinine. Glucose 104. The rest of the comprehensive metabolic profile is essentially normal. Urine is negative. Drug screen was negative. Chest x-ray shows a moderate left-sided effusion, and a small right-sided effusion. Brain CT was negative. Angiography, CT, showed no evidence of high-grade stenosis. Brain MRI showed scattered foci of restricted diffusion compatible with acute subacute LINDA. There were multiple vascular distributions. No evidence for mass. I am seeing this patient in follow-up today 10/15/2022, the patient had been admitted back on October 01, mainly for CVA-like symptoms. Pulmonary had signed off the case, and we were re-consulted yesterday for increased oxygen demands. The patient is a 72-year-old female with past medical history significant for right breast ductal carcinoma and metastatic non-small cell lung cancer which she was undergoing treatment for these on an outpatient basis. Patient also has history of recurrent left-sided pleural effusion, hypertension, coronary artery disease with prior stent to the RCA, DVT. Earlier this morning, the patient did develop some respiratory distress and tachycardia. The patient was reportedly in SVT, and started on a Cardizem infusion, which is currently infusing at 10 mg per hour. On my evaluation, the patient is currently sitting in bed, on a 15 L nonrebreather, fairly comfortable. She does not communicate. A chest CT without contrast was done yesterday afternoon showed an new moderate size right pleural effusion and right upper lobe edema and/or acute infiltrate. There was also a stable left-sided pleural effusion, diffuse left lung opacities which could reflect fibrosis, edema or possibly posttreatment changes, and a unchanged 2.5 cm left mid lung mass or neoplasm. Most recent CBC from yesterday shows increasing leukocytosis with a WBC count of 26.4, hemoglobin 14.7, hematocrit 46, platelets 194. She has been afebrile. Empirically covered on Zosyn. Pro calcitonin level was low at 0.02. BMP from yesterday shows a sodium 146, potassium 4, chloride 109, serum CO2 28, BUN 22, creatinine 0.56, glucose 123. Normal saline is currently infusing at KVO. Patient will likely need thoracentesis. Objective - Vital Signs Vital signs: Vital Signs Temp 98.0 F 10/14/22 20:30 Pulse 124 H 10/15/22 04:25 Resp 24 10/15/22 03:49 BP 119/76 10/15/22 05:39 Pulse Ox 93 L 10/15/22 05:39 FiO2 100 10/15/22 04:48 Intake & Output 10/14/22 10/15/22 10/15/22 18:59 06:59 18:59 Intake Total 750 Output Total 850 Balance 750 -850 Intake: Oral 750 Output: Urine 850 Other: Voiding Method Bedside Commode Bedside Commode # Voids 1 1 - Exam GENERAL EXAM: Alert, but not communicating, 72-year-old white female, fairly comfortable in no apparent distress. HEAD: Normocephalic and atraumatic EYES: Normal reaction of pupils, equal size. NOSE: Clear with pink turbinates. THROAT: No erythema or exudates. NECK: No masses, no JVD. CHEST: No chest wall deformity. LUNGS: Equal air entry with markedly diminished lung sounds right base. no crackles, wheeze, rhonchi or dullness. On 15 L nonrebreather. No conversational dyspnea or accessory muscle use.. CVS: S1 and S2 normal with no audible murmur, irregular rhythm. No extra heart sounds. Heart rate is currently 124 bpm ABDOMEN: No hepatosplenomegaly, active bowel sounds, no guarding or rigidity. SPINE: No scoliosis or deformity SKIN: No rashes CENTRAL NERVOUS SYSTEM: No focal deficits, tone is normal in all 4 extremities. EXTREMITIES: There is no peripheral edema, clubbing, or cyanosis. Peripheral pu lses are intact. - Labs CBC & Chem 7: 10/14/22 10:44 10/14/22 10:44 Labs: Abnormal Lab Results - Last 24 Hours (Table) 10/09/22 10/14/22 10/14/22 Range/Units 16:37 10:44 10:44 WBC 26.4 H (3.8-10.6) k/uL Hct 46.3 H (34.0-46.0) % Neutrophils # 24.0 H (1.3-7.7) k/uL Monocytes # 1.3 H (0-1.0) k/uL Protein C Activity >119 H (54-117) % Sodium 146 H (137-145) mmol/L Chloride 109 H (98-107) mmol/L BUN 22 H (7-17) mg/dL Glucose 123 H (74-99) mg/dL AST 37 H (14-36) U/L Alkaline Phosphatase 243 H (38-126) U/L Albumin 3.4 L (3.5-5.0) g/dL Microbiology - Last 24 Hours (Table) 10/11/22 15:18 Blood Culture - Preliminary Blood 10/11/22 10:17 Blood Culture - Preliminary Blood Assessment and Plan Assessment: Acute/subacute CVA, with aphasia and right facial droop. Patient has had recurrent CVA, and was on Xarelto for DVT at that time. Brain MRI on 10/01 de monstrated scattered foci of restricted diffusion compatible with acute/subacute CVA. There were concerns for embolic stroke, and transesophageal echocardiogram done on October 10 shows no evidence of PFO. Currently anticoagulated on Eliquis. New moderate right-sided pleural effusion Acute hypoxemic respiratory failure secondary to above, currently on 15 L nonrebreather. There was also concern for a right upper lobe developing infiltrate versus edema. Procalcitonin level was low at 0.02. SVT, currently has Cardizem infusing at 10 mg per hour Leukocytosis, infectious diseases on the case History of recurrent left sided pleural effusion Ductal carcinoma breast cancer, following with oncology. on Arimidex Metastatic non-small cell lung cancer, follow with oncology. On Tagrisso Hypertension. CAD, with previous stent placement, right coronary artery. Osteoarthritis. Lifelong nontobacco user Plan: Patient's medications, labs, chest CT were reviewed Continue supplemental oxygen to maintain oxygen saturation 92% or greater Obtain chest ultrasound for possible right-sided thoracentesis On empiric Zosyn, procalcitonin level was low at 0.02 Cardizem infusion per cardiology We will continue to follow I have personally seen and examined the patient, performed the documentation and the assessment and plan as written. Number of minutes spent on the visit:20 Time with Patient: Greater than 30
[2022-10-15] MEDS: ANASTROZOLE 1 MG TAB PO SCH (08:36)
[2022-10-15] MEDS: FLUCONAZOLE 100 MG TAB PO SCH (08:36)
[2022-10-15] MEDS: lisinopriL 5 MG TAB PO SCH ×2 (08:36→20:55)
[2022-10-15] MEDS: DOCUSATE 100 MG CAP PO SCH ×2 (08:36→20:56)
[2022-10-15] MEDS: OSIMERTINIB 80 MG PO SCH (08:37)
[2022-10-15] MEDS: LACTULOSE 20 GM/30 ML CUP PO SCH ×4 (08:38→20:56)
[2022-10-15 09:56] LABS: Basophils % (A) 0 %; Eosinophils % (A) 0 %; HCT 46.8 % (34.0-46.0); HGB 14.9 gm/dL (11.4-16.0); Hypochromasia Slight; Lymphocytes # (A) 0.8 k/uL (1.0-4.8); Lymphocytes % (A) 3 %; MCH 29.8 pg (25.0-35.0); MCHC 31.8 g/dL (31.0-37.0); MCV 93.9 fL (80.0-100.0); Mean Platelet Volume 9.5; Monocytes # (A) 1.3 k/uL (0-1.0); Monocytes % (A) 5 %; Neutrophils # (A) 26.1 k/uL (1.3-7.7); Neutrophils % (A) 92 %; Platelet Count 165 k/uL (150-450); RBC 4.98 m/uL (3.80-5.40); RDW 13.7 % (11.5-15.5); WBC 28.4 k/uL (3.8-10.6)
[2022-10-15 10:18] LABS: ALT 27 U/L (4-34); AST 39 U/L (14-36); African American GFR (CKD) >90 (>60 ml/min/1.73 sqM); Albumin 3.4 g/dL (3.5-5.0); Alkaline Phosphatase 237 U/L (38-126); Anion Gap 10 mmol/L; Blood Urea Nitrogen 23 mg/dL (7-17); Calcium 9.1 mg/dL (8.4-10.2); Carbon Dioxide 29 mmol/L (22-30); Chloride 109 mmol/L (98-107); Glucose 139 mg/dL (74-99); Non-African American GFR(CKD) >90 (>60 ml/min/1.73 sqM); Potassium 3.6 mmol/L (3.5-5.1); Sodium 148 mmol/L (137-145); Total Bilirubin 0.8 mg/dL (0.2-1.3); Total Protein 6.5 g/dL (6.3-8.2)
[2022-10-15] MEDS: SODIUM CHLORIDE 0.9% 1,000 ML IV SCH (11:58)
[2022-10-15] MEDS: LINEZOLID 600 MG in DEXTROSE/WATER 1 300ML.BAG IVPB SCH ×2 (14:13→20:56)
--- NOTE | 2022-10-15 15:17 | P.PN ---
Subjective Progress Note Date: 10/15/22 PROGRESS NOTE The patient is a 72-year-old female with a known history of CAD who presented with a stroke and aphasia. She had a prior DVT and has been anticoagulated. She continues to be in sinus mechanism, aphasic. She denies any chest discomfort, dyspnea or dizziness. JESUS was requested by neurology, initially patient declined but she is willing to proceed with it. I discussed with her the procedure as well as with her son this morning. We'll try to find out if there is any evidence of ASD to explain her event. October 10: The patient is clinically stable since yesterday, she has no chest discomfort, dizziness or palpitations. She continues to be in sinus mechanism. Hemodynamically stable. She is scheduled to undergo JESUS today to rule out intracardiac thrombus or shunting. She was changed to Xarelto since she could not swallow Pradaxa October 11: The patient is doing well this morning, she is hemodynamically stable. She denies any chest discomfort, dizziness or palpitations. She underwent a JESUS yesterday that showed no evidence of intracardiac thrombus or shunting. She continues to be in sinus mechanism. 10/15 We have been asked to evaluate the patient for SVT. Telemetry has been reviewed and patient appears to have sinus rhythm with occasional PVCs and brief episodes of SVT. Patient states that in the past she has felt her heart rate elevated but none in the last 24 hours. Note that the SVT have been very brief. She was started on a Cardizem drip. Blood pressure 158/81. I&D 4% pulse ox on nonrebreather. Patient is waiting to undergo thoracentesis and Plavix and vika leyla [place]. Ultrasound of the chest revealed good size right-sided pleural effusion and pulmonary is planning for right-sided thoracentesis possibly tomorrow. PHYSICAL EXAMINATION: LUNGS: Diminished in the right base HEART: Regular rate and rhythm, S1, S2. No S3. systolic ejection murmur ABDOMEN: Soft, nontender, no organomegaly EXTREMETIES: No edema IMPRESSION: 1. Status post CVA, source unclear, embolic. 2. History of CAD stable 3. History of hyperlipidemia 4. Recent DVT 5. History of hypertension 6. Brief episodes of SVT with underlying sinus rhythm with occasional PACs 7. Right-sided pleural effusion PLAN: Continue present therapy Discontinue Cardizem drip and continue patient on Coreg for heart rate control Recommend lifelong anticoagulation Nurse practitioner note has been reviewed, I agree with the documented findings and plan of care. Patient was seen and examined. Objective - Vital Signs Vital signs: Vital Signs Temp 98.1 F 10/15/22 11:33 Pulse 94 10/15/22 11:33 Resp 24 10/15/22 11:33 BP 158/81 10/15/22 11:33 Pulse Ox 94 L 10/15/22 11:33 FiO2 100 10/15/22 04:48 Intake & Output 10/14/22 10/15/22 10/15/22 18:59 06:59 18:59 Intake Total 750 Output Total 850 900 Balance 750 -850 -900 Intake: Oral 750 Output: Urine 850 900 Other: Voiding Method Bedside Commode Bedside Commode Indwelling Catheter # Voids 1 1 - Labs CBC & Chem 7: 10/15/22 09:05 10/15/22 09:05 Labs: Abnormal Lab Results - Last 24 Hours (Table) 10/15/22 10/15/22 Range/Units 09:05 09:05 WBC 28.4 H (3.8-10.6) k/uL Hct 46.8 H (34.0-46.0) % Neutrophils # 26.1 H (1.3-7.7) k/uL Lymphocytes # 0.8 L (1.0-4.8) k/uL Monocytes # 1.3 H (0-1.0) k/uL Sodium 148 H (137-145) mmol/L Chloride 109 H (98-107) mmol/L BUN 23 H (7-17) mg/dL Glucose 139 H (74-99) mg/dL AST 39 H (14-36) U/L Alkaline Phosphatase 237 H (38-126) U/L Albumin 3.4 L (3.5-5.0) g/dL Microbiology - Last 24 Hours (Table) 10/11/22 15:18 Blood Culture - Preliminary Blood 10/11/22 10:17 Blood Culture - Preliminary Blood
--- NOTE | 2022-10-15 16:13 | P.PN ---
Subjective Progress Note Date: 10/15/22 Principal diagnosis: History of breast cancer, metastatic lung cancer, on treatment for both. Admitted with CVA symptoms In f/u today pt cont to not be able to speak, she is still replying with head nods, she is more appropriate today than she was yesterday, she is on a nonrebr eather today. Objective - Vital Signs Vital signs: Vital Signs Temp 98.1 F 10/15/22 11:33 Pulse 94 10/15/22 11:33 Resp 24 10/15/22 11:33 BP 158/81 10/15/22 11:33 Pulse Ox 94 L 10/15/22 11:33 FiO2 100 10/15/22 04:48 Intake & Output 10/14/22 10/15/22 10/15/22 18:59 06:59 18:59 Intake Total 750 Output Total 850 900 Balance 750 -850 -900 Intake: Oral 750 Output: Urine 850 900 Other: Voiding Method Bedside Commode Bedside Commode Indwelling Catheter # Voids 1 1 - Constitutional General appearance: Present: average body habitus, mild distress - EENT Eyes: Present: anicteric sclerae ENT: Present: hearing grossly normal - Respiratory Respiratory: left: diminished, rhonchi - Cardiovascular Rhythm: regular - Musculoskeletal Musculoskeletal: Present: generalized weakness - Labs CBC & Chem 7: 10/15/22 09:05 10/15/22 09:05 Labs: Abnormal Lab Results - Last 24 Hours (Table) 10/15/22 10/15/22 Range/Units 09:05 09:05 WBC 28.4 H (3.8-10.6) k/uL Hct 46.8 H (34.0-46.0) % Neutrophils # 26.1 H (1.3-7.7) k/uL Lymphocytes # 0.8 L (1.0-4.8) k/uL Monocytes # 1.3 H (0-1.0) k/uL Sodium 148 H (137-145) mmol/L Chloride 109 H (98-107) mmol/L BUN 23 H (7-17) mg/dL Glucose 139 H (74-99) mg/dL AST 39 H (14-36) U/L Alkaline Phosphatase 237 H (38-126) U/L Albumin 3.4 L (3.5-5.0) g/dL Microbiology - Last 24 Hours (Table) 10/11/22 15:18 Blood Culture - Preliminary Blood 10/11/22 10:17 Blood Culture - Preliminary Blood Assessment and Plan (1) Cerebrovascular accident (CVA) Current Visit: Yes Status: Acute Priority: High Code(s): I63.9 - CEREBRAL INFARCTION, UNSPECIFIED SNOMED Code(s): 537149605 (2) Cancer of lung Current Visit: Yes Status: Acute Priority: Medium Code(s): C34.90 - MALIGNANT NEOPLASM OF UNSP PART OF UNSP BRONCHUS OR LUNG SNOMED Code(s): 536341981 (3) History of breast cancer Current Visit: No Status: Chronic Priority: Medium Code(s): Z85.3 - PERSONAL HISTORY OF MALIGNANT NEOPLASM OF BREAST SNOMED Code(s): 178808319 Plan: Recurrent CVA -JESUS neg -Was on xarelto for DVT when she developed CVA. Now on eliquis and plavix. No evidence of bleeding, hemoglobin stable -Antiphospholipid ab work up neg. Patient is okay to continue on eliquis for anticoagulation. Regarding the lupus anticoagulant, being positive while on anticoagulation is not considered a true positive. If it is neg, it is a true negative. It will be rechecked outpatient. Breast cancer -cont arimidex. 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 She is current on f/u and has been doing well -F/U with Medical Onc after rehab
--- NOTE | 2022-10-15 16:14 | P.PN ---
Subjective Progress Note Date: 10/15/22 Kat Kim, is a 72-year-old female who presented to [facility] emergency room with a chief complaint difficulty with her speech, and right facial drooping, patient presented to emergency room with similar complaints yesterday, at that time she was offered MRI and admission by [facility] room physician however she felt that she was improving and she opted to go home. However over the next several hours patient developed complete aphasia, she was brought back to the emergency room by her family. She was evaluated in the emergency room vital examination on presentation revealed a temperature of 99 pulse 84 respiration 18 blood pressure 160/87 pulse ox 94% on room air Laboratory data revealed a white blood count of 7.1 hemoglobin 14.6 platelet count 167 sodium 137 potassium 4.3 chloride 102 CO2 29 BUN 9 creatinine 0.56 urine analysis revealed no evidence of infection and urine toxicology screen was negative Testing in the emergency room revealed, computed tomography scan of the brain without contrast was done in the emergency room and revealed no acute intracranial process, CT angiogram of the brain done in the emergency room revealed no evidence of dissection of the cervical internal carotid arteries or vertebral arteries or any evidence of significant stenosis at the carotid bifurcation there was no evidence of intracranial high-grade stenosis or intracranial aneurysm Patient was admitted to medical floor for further evaluation and treatment, neurology consultation was requested Past medical history is significant for history of breast cancer, history of stacey ng cancer, history of atrial fibrillation, history of lower extremity DVT, patient was maintained on Xarelto At home On 10/02/2022. Patient is currently resting in room remains with difficulty in speech and right facial drooping. MRI of the brain was completed showing scattered foci of restricted diffusion compatible with acute or subacute CVA given multiple vascular distributions correlate for emboli phenomenon. Neurology services are following. Cardiology services also consulted. Current vital signs temp 98.1, heart rate 74, blood pressure 129/67 pulse ox of 94% on room air On 10/03/2022, patient was seen and examined on telemetry, case was discussed in details with Dr. Amadou López neurologist, patient is developing more difficulty with swallowing, recommendation from neurology is to proceed with JESUS, to rule out cardiac thrombus or PFO. However due to significant difficulty with swallowing, cardiology wanted to wait at this time on JESUS. Recommendation from neurology at this time is to proceed with upper and lower bilateral lower extremity Doppler to rule out acute DVT, and to start anticoagulation starting tomorrow. On 10/04/2022 patient is sitting comfortably in chair. Patient remains nonverbal. Pradaxa has been started per cardiology and neurology recommendations. Current vital signs temp 97.5, heart rate 77, respiratory rate 16, blood pressure 1 5476 with pulse ox 93% on room air. Per cardiology at this time JESUS remains on hold due to difficulty in swallowing. On 10/05/2022 patient was seen and examined on the medical she is alert and oriented 3 in no apparent distress, she is sitting up in a chair, she still has significant facial drooping, she has complete aphasia, she tries to answer questions by nodding her head, she is still having significant difficulty with swallowing, cardiology note reviewed, no plans for JESUS at this time due to difficulty swallowing and the risk of aspiration, she was started on Pradaxa for anticoagulation, she is having difficulty swallowing the pill as it cannot be crushed. At this time will continue with physical therapy, occupational therapy, and speech therapy, will reassess in a.m. On 10/06/2022 patient was seen and examined the medical floor she is alert and oriented in no apparent distress, she is sitting up in a chair she still has complete aphasia, she is having difficulty swallowing, she is complaining of constipation, otherwise she denies any complaints there is no fever or chills no headache or dizziness no chest pain no shortness of breath no cough no nausea or vomiting no abdominal pain no diarrhea and no urinary symptoms. At this time, JESUS will be delayed until patient has better swallowing per cardiology, possibility of rehab admission discussed with patient however she is indicating that she wants to go home, possible discharge to home tomorrow if stable and no further recommendation from cardiology or neurology On 10/07/2022 patient is currently sitting in chair. Patient's son at bedside. Per patient's son patient had a fall this a.m. due to new onset of weakness to her right arm. Patient denies any injuries from fall but does report that the right arm weakness started last night. This is new per son. At this time will do a head CT and discussed with nursing staff to notify neurology services. patient denies chest pain or shortness of breath. Patient denies nausea vomiting or diarrhea. Patient denies any urinary burning or frequency. On 10/08/2022 patient was seen and examined on the telemetry floor she is alert responsive in no apparent distress she is still completely aphasic, she is answering questions by nodding her head, she is still having right sided facial drooping and difficulty swallowing, she also now has complete paralysis of the right upper extremity, neurology are following closely, they recommended JESUS however per their notes patient has refused to complete test. Medication were reviewed will continue with current management will discuss with neurology further treatment steps. On 10/09/2022 patient is currently resting comfortably in bed. Patient have some movement to right extremity no further new neurological symptoms. Patient still having right-sided facial drooping and difficulty swallowing. Patient's son is at bedside per family trying to convince patient to move forward with JESUS. Neurology services are following this time patient denies chest pain or shortness of breath. Patient denies nausea vomiting or diarrhea. Patient denies any urinary burning or frequency On 10/10/2022 patient was seen and examined on the telemetry floor she is alert and oriented 3 in no apparent distress she is still having right facial drooping, complete expressive aphasia, difficulty swallowing, and right upper extremity paralysis, she is scheduled for JESUS today, awaiting further input from neurology and cardiology, possible transfer to rehab on Wednesday if stable and no further recommendation for any testing and intervention. On 10/11/2022 patient is alert and oriented 3 currently sitting up in chair. Patient continues to have right facial drooping complete expressive aphasia, difficulty swallowing and right upper extremity paralysis. No new neurological symptoms noted. Patient did have JESUS completed. White blood cell trending up 15.6 will order chest x-ray urinalysis blood culture and consult infectious dis ease. On 10/12/2022 patient was seen and examined on the telemetry floor she is alert and oriented in no apparent distress, she is still having right sided facial drooping, complete expressive aphasia, and difficulty swallowing, she is also having severe paralysis of the right upper extremity. I have discussed her case in details with Dr. Rondon and with Dr. Dye on neurology, patient failed on Xarelto and had a stroke while she was taking Xarelto, recommendation by cardiology was to switch to Pradaxa, which was done a few days ago, however patient was not able to swallow Pradaxa pills, and it's not recommended that those pills are crushed, so cardiology switched her back to Xarelto, however upon discussion today with neurology Dr. Amadou Dye, he recommended to switch to Eliquis. At this time will discontinue Xarelto today and start with Eliquis in a.m. tomorrow. Patient also has elevated white blood count possibly related to aspiration even though chest x-ray is not revealing evidence of pneumonia, patient is followed by infectious disease she is maintained on IV antibiotic, wi ll continue to follow closely. There is a bed available for patient in [facility] rehab unit, however due to elevated white blood count and use of IV antibiotics, she is not stable enough yet for transfer. Will follow in a.m.. Prognosis is guarded. On 10/13/2022 patient was seen and examined on the telemetry floor she is alert responsive in no apparent distress, clinically there is no significant change in her condition since yesterday, her white blood count is increasing up to 24.2 from 16.[address] Berg is following antibiotic were changed today to Zosyn, vital exam reveals a temperature of 97.8 pulse 56 respiration 18 blood pressure 140/73 pulse ox 91% on room air. No new recommendation from neurology or cardiology, will continue to follow closely, prognosis is guarded On 10/14/2022 patient is alert responsive sitting in bed patient does appear to have increased shortness of breath requiring increased oxygen at 5 L. This time a ordered stat chest x-ray and consult pulmonary services. Patient is on antibiotics of IV Zosyn. Infectious disease services are following. Patient denies chest pain. Patient denies nausea vomiting or diarrhea. She remains on anticoagulation of eliquis and Plavix On 10/15/2022 patient was seen and examined on the medical floor she is alert and responsive in no apparent distress she is still nonverbal she still has complete paralysis of the right upper extremity she still has facial drooping and difficulty swallowing, during compliance professional hours patient had episode of SVT with heart rate 120- 150 cardiology were contacted and she was started on IV Cardizem drip, white blood count continue to increase pulmonary and infectious disease are following currently patient is maintained on Zosyn and Zyvox possibility of thoracentesis is being discussed. Patient is not appropriate to discharge to rehab at this point will continue to follow closely. Objective - Vital Signs Vital signs: Vital Signs Temp 98.0 F 10/14/22 20:30 Pulse 124 H 10/15/22 04:25 Resp 24 10/15/22 03:49 BP 119/76 10/15/22 05:39 Pulse Ox 93 L 10/15/22 05:39 FiO2 100 10/15/22 04:48 Intake & Output 10/14/22 10/15/22 10/15/22 18:59 06:59 18:59 Intake Total 750 Output Total 850 900 Balance 750 -850 -900 Intake: Oral 750 Output: Urine 850 900 Other: Voiding Method Bedside Commode Bedside Commode # Voids 1 1 - Exam In general patient is alert and oriented, able to communicate by writing on board in no apparent distress HEENT head normocephalic and atraumatic Neck is supple no JVD no goiter no lymphadenopathy no carotid bruit Chest examination is clear to auscultation no crackles no wheezing Cardiac exam reveals regular heart sounds S1 and S2 no gallops no murmurs Abdomen is soft nontender no organomegaly with normal bowel sounds Extremity exam reveals no edema no cyanosis or clubbing Neurological examination reveals complete expressive aphasia, and right facial drooping otherwise no focal deficit - Labs CBC & Chem 7: 10/15/22 09:05 10/15/22 09:05 Labs: Abnormal Lab Results - Last 24 Hours (Table) 10/09/22 10/14/22 10/14/22 Range/Units 16:37 10:44 10:44 WBC 26.4 H (3.8-10.6) k/uL Hct 46.3 H (34.0-46.0) % Neutrophils # 24.0 H (1.3-7.7) k/uL Monocytes # 1.3 H (0-1.0) k/uL Protein C Activity >119 H (54-117) % Sodium 146 H (137-145) mmol/L Chloride 109 H (98-107) mmol/L BUN 22 H (7-17) mg/dL Glucose 123 H (74-99) mg/dL AST 37 H (14-36) U/L Alkaline Phosphatase 243 H (38-126) U/L Albumin 3.4 L (3.5-5.0) g/dL Microbiology - Last 24 Hours (Table) 10/11/22 15:18 Blood Culture - Preliminary Blood 10/11/22 10:17 Blood Culture - Preliminary Blood Assessment and Plan Plan: Expressive aphasia and right facial droop secondary to ischemic stroke Reoccurring ischemic stroke with right arm paralysis Leukocytosis. Chest x-ray, urinary analysis blood culture ordered consult infectious disease Increased shortness of breath. Stat chest x-ray order pulmonary services reconsulted Underlying history of lung cancer Underlying history of breast cancer Previous history of DVT 3 weeks ago, maintained on Xarelto Underlying history of left pleural effusion History of atrial fibrillation At this time patient was seen and examined in the emergency room Home medications reviewed and reordered Cardiology, pulmonary and neurology service is following JESUS completed on 10/10/2022 Will follow closely
[2022-10-15] MEDS: ATORVASTATIN 40 MG TAB PO SCH (20:55)
--- NOTE | 2022-10-15 22:02 | P.PN ---
Subjective Progress Note Date: 10/15/22 Principal diagnosis: Leukocytosis Patient is a 72-year-old female with multiple comorbidities has been in the hospital for more than 10 days currently being evaluated and treatment for possible stroke and noticed to have elevated white count. On today's evaluation that is 10/15/2022 patient continues to be afebrile , the patient did have worsening of respiratory status and currently requiring a nonrebreather, the patient denies any chest pain patient did have some cough but not bringing up any sputum , no vomiting or diarrhea has been reported Objective - Vital Signs Vital signs: Vital Signs Temp 98.1 F 10/15/22 11:33 Pulse 94 10/15/22 11:33 Resp 24 10/15/22 11:33 BP 158/81 10/15/22 11:33 Pulse Ox 94 L 10/15/22 11:33 FiO2 100 10/15/22 04:48 Intake & Output 10/14/22 10/15/22 10/15/22 18:59 06:59 18:59 Intake Total 750 Output Total 850 900 Balance 750 -850 -900 Intake: Oral 750 Output: Urine 850 900 Other: Voiding Method Bedside Commode Bedside Commode Indwelling Catheter # Voids 1 1 - Exam GENERAL DESCRIPTION: Elderly female up in the chair in no distress RESPIRATORY SYSTEM: Unlabored breathing , decreased breath sounds at bases HEART: S1 S2 regular rate and rhythm ,no loud murmurs ABDOMEN: Soft , no tenderness EXTREMITIES: No edema feet - Labs CBC & Chem 7: 10/15/22 09:05 10/15/22 09:05 Labs: Abnormal Lab Results - Last 24 Hours (Table) 10/09/22 10/15/22 10/15/22 Range/Units 16:37 09:05 09:05 WBC 28.4 H (3.8-10.6) k/uL Hct 46.8 H (34.0-46.0) % Neutrophils # 26.1 H (1.3-7.7) k/uL Lymphocytes # 0.8 L (1.0-4.8) k/uL Monocytes # 1.3 H (0-1.0) k/uL Protein C Activity >119 H (54-117) % Sodium 148 H (137-145) mmol/L Chloride 109 H (98-107) mmol/L BUN 23 H (7-17) mg/dL Glucose 139 H (74-99) mg/dL AST 39 H (14-36) U/L Alkaline Phosphatase 237 H (38-126) U/L Albumin 3.4 L (3.5-5.0) g/dL Microbiology - Last 24 Hours (Table) 10/11/22 15:18 Blood Culture - Preliminary Blood 10/11/22 10:17 Blood Culture - Preliminary Blood Assessment and Plan (1) Leukocytosis Current Visit: Yes Status: Acute Code(s): D72.829 - ELEVATED WHITE BLOOD CELL COUNT, UNSPECIFIED SNOMED Code(s): 810411754 (2) Pneumonia Current Visit: Yes Status: Acute Code(s): J18.9 - PNEUMONIA, UNSPECIFIED ORGANISM SNOMED Code(s): 086867580 Plan: 1patient with elevated white count and this patient admitted to hospital about 10 days ago predominantly for strokelike symptoms and nonverbal MRI was suspicious for possible embolic phenomena and is being evaluated by cardiology pulmonary service since patient did receive 1 dose of steroids on admission but no steroids since then has been complaining of some sores in the mouth and concern for possible thrush/oropharyngeal candidiasis, patient did not have any fever urine has been negative chest x-ray bilateral effusion with left greater than right progressively suspicious disease with question of possible fluid related however the patient also complaining of some cough with sputum production underlying pneumonia less likely but not entirely excluded 2-blood cultures has been negative so far patient did have elevated CRP of 7.0 however did have a normal procalcitonin sputum culture has been requested 3-Patient did have worsening respiratory status and concern for possible recurrent aspiration pneumonia with worsening of the white count and clinical condition on Zosyn and concern for possible gram-positive component. Will add IV Zyvox try to obtain a sputum and monitor clinical course closely Time with Patient: Less than 30
--- NOTE | 2022-10-15 22:34 | P.PN ---
Subjective Progress Note Date: 10/15/22 10/15/2022: Patient was seen for follow-up. Patient since last seen, was followed up by Dr. Amadou Dye. Please refer to his note for details. Patient at present is in ICU in bed #264. She was transferred to the ICU because of large left pleural effusion. Patient also had runs of SVT last night for which an A-team was activated. 10/07/2022: Patient has developed new focal symptoms as of this morning. Patient has developed right arm weakness, which is very noticeable. This is an acute change. Patient continues to be severely expressively aphasic. Her comprehension appears to be slightly worse today. Patient admits to having headache. 10/06/2022: Patient was seen for a follow-up. Patient is sitting comfortably in the recliner. Denies any headache. Family members were not present today. Patient continues to be severely aphasic with anarthria. Telemetry monitoring showing sinus rhythm. 10/05/2022: Patient initially seen by Dr. Amadou Dye. Please refer to his note for details. Patient is a 72-year-old right-handed female with history of stage IV lung cancer, came with global aphasia and muteness. Patient's daughter was present, who provided with history. On Wednesday evening 09/30/2022 at 7 PM, while cutting vegetables, she stopped getting the jaycob and started drooling for 15 minutes. She was brought to the hospital and her speech returned back to baseline. She was sent home, and next day on at 9:30 AM, she stopped talking and has never regained speech yet. MRI of the brain revealed multiple bilateral hemispheric stroke, left slightly more than right. Patient has history of DVT 3 weeks ago and atrial fibrillation and was on Xarelto but appears failed. Patient was started on broad neck side yesterday. JESUS is pending. Patient's daughter was also present, who states that patient is cognitively intact. She understands everything, but cannot express herself which makes her very frustrated. Some of the workup during his hospital visit consisted of: Lipid panel triglycerides 79, cholesterol is 204, LDLs 128, HDL 59. CT head is reported as no acute intracranial process. I personally reviewed that a CT and there is no acute or subacute ischemia seen. There is no mass affect. CT angiography of the head and neck was reported as no evidence of dissection of the cervical internal carotid arteries or vertebral artery or any evidence of significant stenosis at the carotid bifurcation. No evidence of intracranial high-grade stenosis or intracranial aneurysm. Intracranial atherosclerosis of the internal carotid artery without hemodynamic stenosis. Right and increased size of left pleural effusion. There is a pleural sign in the left which could represent empyema. Persistent that scattered nodular opacity likely representing metastatic disease from the patient known malignancy. EKG is reported as sinus rhythm. Low QRS voltage [facility] Drug screen is negative. MRI brain is reported as scattered foci of restricted diffusion compatible with acute/subacute CVA. Given multiple vascular distribution correlate for embolic phenomena. No abnormal postcontrast enhancement the, no evidence for mass. Nonspecific white matter changes likely secondary to chronic small vessel ischemic disease. I personally reviewed the MRI and I agree with the report. Patient has restriction diffusion over bilateral frontal left more than the right with right parietal occipital region The echo was reported as suboptimal acoustic windows. Contrast echo study performed. Borderline normal left ventricle systolic function septal bulge. There is septal and inferior basal hypokinesis. Routine EEG is normal. There is no focal slowing, epileptiform discharges or seizure on the EEG. Venous duplex of the upper and lower extremities negative Objective - Vital Signs Vital signs: Vital Signs Temp 97.7 F 10/15/22 18:23 Pulse 86 10/15/22 19:15 Resp 34 H 10/15/22 19:15 BP 118/74 10/15/22 19:15 Pulse Ox 97 10/15/22 19:15 FiO2 80 10/15/22 21:15 Intake & Output 10/15/22 10/15/22 10/16/22 06:59 18:59 06:59 Intake Total 0 20 Output Total 850 1145 30 Balance -850 -1145 -10 Intake: IV 0 20 Sodium Chloride 0.9% 1, 0 20 000 ml @ 20 mls/hr IV . Q24H NEIDA Rx#:[id number] Output: Urine 850 1145 30 Other: Voiding Method Bedside Commode Indwelling Catheter # Voids 1 - Exam Patient is alert and awake, laying in the bed, with BiPAP on. Patient responding appropriately. Speech was not able to be assessed because of BiPAP on. Patient has (right/left) product mgmt dev manager 0/4+5-, ankle dorsiflexion 5-/5. - Labs CBC & Chem 7: 10/15/22 09:05 10/15/22 09:05 Labs: Abnormal Lab Results - Last 24 Hours (Table) 10/15/22 10/15/22 Range/Units 09:05 09:05 WBC 28.4 H (3.8-10.6) k/uL Hct 46.8 H (34.0-46.0) % Neutrophils # 26.1 H (1.3-7.7) k/uL Lymphocytes # 0.8 L (1.0-4.8) k/uL Monocytes # 1.3 H (0-1.0) k/uL Sodium 148 H (137-145) mmol/L Chloride 109 H (98-107) mmol/L BUN 23 H (7-17) mg/dL Glucose 139 H (74-99) mg/dL AST 39 H (14-36) U/L Alkaline Phosphatase 237 H (38-126) U/L Albumin 3.4 L (3.5-5.0) g/dL Microbiology - Last 24 Hours (Table) 10/11/22 15:18 Blood Culture - Preliminary Blood Assessment and Plan Assessment: Recurrent ischemic strokes. Patient apparently had a new stroke overnight, with new right arm paresis. Her right facial droop and aphasia also seems to have gotten worse. Acute ischemic stroke (over bilateral hemisphere: bilateral frontal L>R, right parietal and occipital region). Stroke appears embolic in nature: Probable cardioembolic. Patient has failed Xarelto, now Pradaxa as well. Patient currently on Eliquis. Leukocytosis and possible pneumonia. Patient on Zosyn, ID on board. History of left lung cancer History of right breast cancer History of recent DVT about 3 weeks ago and was on Xarelto Left Pleural effusion on CTA History of pleural effusion History of atrial fibrillation and in past was on anticoagulation then stopped then after DVT 3 weeks ago restarted it Plan: Patient had recurrent ischemic strokes. CTA of head and neck showed no significant change from recent CTA study. No LVO. Patient has failed Xarelto, and now also Pradaxa. Patient is also on Plavix. Patient now started on Eliquis. This has been held because of need for thoracentesis for pleural effusion. JESUS performed 10/10/2022 revealed normal appearance left atrial appendage. Normal left ventricular size and systolic function. No shunting across the intra-atrial septum. Mild mitral and tricuspid regurgitation. Aortic valve sclerosis without stenosis. Continue Lipitor 40 mg daily at bedtime second stroke prophylaxis Routine EEG normal. Cardiac monitoring, with telemetry showing sinus rhythm at this time. PT OT and KIESELGUHR REGENERATOR OPERATOR are consulted Cardiology is on board. Pulmonary team is consulted for pleural effusion and history of lung cancer We'll defer the rest of the medical management to primary team For DVT prophylaxis: Eliquis to be resumed when medically cleared.
[2022-10-16] MEDS: PIPERACILLIN-TAZOBACTAM 3.375 GM in SODIUM CHLORIDE 0.9% 100 ML IVPB SCH ×3 (00:54→15:55)
[2022-10-16] MEDS: SODIUM CHLORIDE 0.9% 1,000 ML IV SCH ×3 (00:55→15:54)
[2022-10-16 06:10] LABS: HCT 42.5 % (34.0-46.0); HGB 13.5 gm/dL (11.4-16.0); MCH 29.6 pg (25.0-35.0); MCHC 31.8 g/dL (31.0-37.0); MCV 93.2 fL (80.0-100.0); Mean Platelet Volume 9.4; Platelet Count 120 k/uL (150-450); RBC 4.57 m/uL (3.80-5.40); RDW 13.8 % (11.5-15.5); WBC 24.9 k/uL (3.8-10.6)
[2022-10-16 06:16] LABS: African American GFR (CKD) >90 (>60 ml/min/1.73 sqM); Anion Gap 8 mmol/L; Blood Urea Nitrogen 24 mg/dL (7-17); Calcium 8.9 mg/dL (8.4-10.2); Carbon Dioxide 29 mmol/L (22-30); Chloride 110 mmol/L (98-107); Glucose 118 mg/dL (74-99); Non-African American GFR(CKD) >90 (>60 ml/min/1.73 sqM); Potassium 3.3 mmol/L (3.5-5.1); Sodium 147 mmol/L (137-145)
[2022-10-16] MEDS: POTASSIUM CHLORIDE 10 MEQ in WATER FOR INJECTION 1 100ML.BAG IVPB SCH ×4 (06:44→11:39)
[2022-10-16] MEDS: carvediloL 3.125 MG TAB PO SCH ×2 (06:46→16:50)
--- NOTE | 2022-10-16 08:17 | XR ---
EXAMINATION TYPE: XR chest 1V portable DATE OF EXAM: 10/16/2022 Comparison: 10/14/2022 Clinical History: 72-year-old female plural effusions Findings: Right heart margin obscured by adjacent pleural parenchymal opacity. Extensive opacification througho ut the left upper lung and both lower lungs. Shifting airspace opacities throughout the right upper a nd midlung and similar patchy airspace opacity throughout the left mid lung. Impression: Ongoing at least moderate bilateral pleural effusions, loculated at the left upper lung, and patchy b ibasilar airspace disease, overall increased in the right midlung now.
[2022-10-16] MEDS: lisinopriL 5 MG TAB PO SCH ×2 (08:21→20:53)
[2022-10-16] MEDS: LACTULOSE 20 GM/30 ML CUP PO SCH ×5 (08:21→20:48)
[2022-10-16] MEDS: ANASTROZOLE 1 MG TAB PO SCH (08:21)
[2022-10-16] MEDS: ACETAMINOPHEN TAB 325 MG TAB PO PRN ×2 (08:23→20:53)
[2022-10-16] MEDS: LINEZOLID 600 MG in DEXTROSE/WATER 1 300ML.BAG IVPB SCH ×2 (08:23→20:54)
--- NOTE | 2022-10-16 10:04 | P.PN ---
Subjective Progress Note Date: 10/16/22 Kat Kim, is a 72-year-old female who presented to [facility] emergency room with a chief complaint difficulty with her speech, and right facial drooping, patient presented to emergency room with similar complaints yesterday, at that time she was offered MRI and admission by [facility] room physician however she felt that she was improving and she opted to go home. However over the next several hours patient developed complete aphasia, she was brought back to the emergency room by her family. She was evaluated in the emergency room vital examination on presentation revealed a temperature of 99 pulse 84 respiration 18 blood pressure 160/87 pulse ox 94% on room air Laboratory data revealed a white blood count of 7.1 hemoglobin 14.6 platelet count 167 sodium 137 potassium 4.3 chloride 102 CO2 29 BUN 9 creatinine 0.56 urine analysis revealed no evidence of infection and urine toxicology screen was negative Testing in the emergency room revealed, computed tomography scan of the brain without contrast was done in the emergency room and revealed no acute intracranial process, CT angiogram of the brain done in the emergency room revealed no evidence of dissection of the cervical internal carotid arteries or vertebral arteries or any evidence of significant stenosis at the carotid bifurcation there was no evidence of intracranial high-grade stenosis or intracranial aneurysm Patient was admitted to medical floor for further evaluation and treatment, neurology consultation was requested Past medical history is significant for history of breast cancer, history of stacey ng cancer, history of atrial fibrillation, history of lower extremity DVT, patient was maintained on Xarelto At home On 10/02/2022. Patient is currently resting in room remains with difficulty in speech and right facial drooping. MRI of the brain was completed showing scattered foci of restricted diffusion compatible with acute or subacute CVA given multiple vascular distributions correlate for emboli phenomenon. Neurology services are following. Cardiology services also consulted. Current vital signs temp 98.1, heart rate 74, blood pressure 129/67 pulse ox of 94% on room air On 10/03/2022, patient was seen and examined on telemetry, case was discussed in details with Dr. Amadou López neurologist, patient is developing more difficulty with swallowing, recommendation from neurology is to proceed with JESUS, to rule out cardiac thrombus or PFO. However due to significant difficulty with swallowing, cardiology wanted to wait at this time on JESUS. Recommendation from neurology at this time is to proceed with upper and lower bilateral lower extremity Doppler to rule out acute DVT, and to start anticoagulation starting tomorrow. On 10/04/2022 patient is sitting comfortably in chair. Patient remains nonverbal. Pradaxa has been started per cardiology and neurology recommendations. Current vital signs temp 97.5, heart rate 77, respiratory rate 16, blood pressure 1 5476 with pulse ox 93% on room air. Per cardiology at this time JESUS remains on hold due to difficulty in swallowing. On 10/05/2022 patient was seen and examined on the medical she is alert and oriented 3 in no apparent distress, she is sitting up in a chair, she still has significant facial drooping, she has complete aphasia, she tries to answer questions by nodding her head, she is still having significant difficulty with swallowing, cardiology note reviewed, no plans for JESUS at this time due to difficulty swallowing and the risk of aspiration, she was started on Pradaxa for anticoagulation, she is having difficulty swallowing the pill as it cannot be crushed. At this time will continue with physical therapy, occupational therapy, and speech therapy, will reassess in a.m. On 10/06/2022 patient was seen and examined the medical floor she is alert and oriented in no apparent distress, she is sitting up in a chair she still has complete aphasia, she is having difficulty swallowing, she is complaining of constipation, otherwise she denies any complaints there is no fever or chills no headache or dizziness no chest pain no shortness of breath no cough no nausea or vomiting no abdominal pain no diarrhea and no urinary symptoms. At this time, JESUS will be delayed until patient has better swallowing per cardiology, possibility of rehab admission discussed with patient however she is indicating that she wants to go home, possible discharge to home tomorrow if stable and no further recommendation from cardiology or neurology On 10/07/2022 patient is currently sitting in chair. Patient's son at bedside. Per patient's son patient had a fall this a.m. due to new onset of weakness to her right arm. Patient denies any injuries from fall but does report that the right arm weakness started last night. This is new per son. At this time will do a head CT and discussed with nursing staff to notify neurology services. patient denies chest pain or shortness of breath. Patient denies nausea vomiting or diarrhea. Patient denies any urinary burning or frequency. On 10/08/2022 patient was seen and examined on the telemetry floor she is alert responsive in no apparent distress she is still completely aphasic, she is answering questions by nodding her head, she is still having right sided facial drooping and difficulty swallowing, she also now has complete paralysis of the right upper extremity, neurology are following closely, they recommended JESUS however per their notes patient has refused to complete test. Medication were reviewed will continue with current management will discuss with neurology further treatment steps. On 10/09/2022 patient is currently resting comfortably in bed. Patient have some movement to right extremity no further new neurological symptoms. Patient still having right-sided facial drooping and difficulty swallowing. Patient's son is at bedside per family trying to convince patient to move forward with JESUS. Neurology services are following this time patient denies chest pain or shortness of breath. Patient denies nausea vomiting or diarrhea. Patient denies any urinary burning or frequency On 10/10/2022 patient was seen and examined on the telemetry floor she is alert and oriented 3 in no apparent distress she is still having right facial drooping, complete expressive aphasia, difficulty swallowing, and right upper extremity paralysis, she is scheduled for JESUS today, awaiting further input from neurology and cardiology, possible transfer to rehab on Wednesday if stable and no further recommendation for any testing and intervention. On 10/11/2022 patient is alert and oriented 3 currently sitting up in chair. Patient continues to have right facial drooping complete expressive aphasia, difficulty swallowing and right upper extremity paralysis. No new neurological symptoms noted. Patient did have JESUS completed. White blood cell trending up 15.6 will order chest x-ray urinalysis blood culture and consult infectious dis ease. On 10/12/2022 patient was seen and examined on the telemetry floor she is alert and oriented in no apparent distress, she is still having right sided facial drooping, complete expressive aphasia, and difficulty swallowing, she is also having severe paralysis of the right upper extremity. I have discussed her case in details with Dr. Rondon and with Dr. Dye on neurology, patient failed on Xarelto and had a stroke while she was taking Xarelto, recommendation by cardiology was to switch to Pradaxa, which was done a few days ago, however patient was not able to swallow Pradaxa pills, and it's not recommended that those pills are crushed, so cardiology switched her back to Xarelto, however upon discussion today with neurology Dr. Amadou Dye, he recommended to switch to Eliquis. At this time will discontinue Xarelto today and start with Eliquis in a.m. tomorrow. Patient also has elevated white blood count possibly related to aspiration even though chest x-ray is not revealing evidence of pneumonia, patient is followed by infectious disease she is maintained on IV antibiotic, wi ll continue to follow closely. There is a bed available for patient in [facility] rehab unit, however due to elevated white blood count and use of IV antibiotics, she is not stable enough yet for transfer. Will follow in a.m.. Prognosis is guarded. On 10/13/2022 patient was seen and examined on the telemetry floor she is alert responsive in no apparent distress, clinically there is no significant change in her condition since yesterday, her white blood count is increasing up to 24.2 from 16.[address] Berg is following antibiotic were changed today to Zosyn, vital exam reveals a temperature of 97.8 pulse 56 respiration 18 blood pressure 140/73 pulse ox 91% on room air. No new recommendation from neurology or cardiology, will continue to follow closely, prognosis is guarded On 10/14/2022 patient is alert responsive sitting in bed patient does appear to have increased shortness of breath requiring increased oxygen at 5 L. This time a ordered stat chest x-ray and consult pulmonary services. Patient is on antibiotics of IV Zosyn. Infectious disease services are following. Patient denies chest pain. Patient denies nausea vomiting or diarrhea. 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 Patient is not appropriate to discharge to rehab at this point will continue to follow closely. On 10/16/2022 patient was seen and examined in the ICU, over night patient developed worsening shortness of breath, she was transferred from the telemetry floor to the ICU and was started on BiPAP, pulmonary is following, and are planning for thoracentesis this morning, otherwise no change in condition since yesterday, prognosis remains guarded, pulmonary cardiology infectious disease and neurology are following. Objective - Vital Signs Vital signs: Vital Signs Temp 98.2 F 10/16/22 08:00 Pulse 100 10/16/22 08:00 Resp 34 H 10/16/22 08:00 BP 155/82 10/16/22 08:00 Pulse Ox 93 L 10/16/22 08:00 FiO2 60 10/16/22 08:00 Intake & Output 10/15/22 10/16/22 10/16/22 18:59 06:59 18:59 Intake Total 0 970 525 Output Total 1145 320 95 Balance -1145 650 430 Weight 67.1 kg Intake: IV 0 970 525 Linezolid 600 mg In 300 150 Dextrose/Water 1 300ml. bag @ 150 mls/hr IVPB Q12HR [facility] Rx#:[id number] Piperacillin-Tazobactam 3 100 25 .375 gm In Sodium Chloride 0.9% 100 ml @ 25 mls/hr IVPB Q8HR [facility] Rx# :[id number] Potassium Chloride 10 meq 200 In Water For Injection 1 100ml.bag @ 100 mls/hr IVPB Q1HR [facility] Rx#: [id number] Sodium Chloride 0.9% 1, 0 120 000 ml @ 20 mls/hr IV . Q24H [facility] Rx#:[id number] Sodium Chloride 0.9% 1, 450 150 000 ml @ 75 mls/hr IV . [id number] [facility] Rx#:[id number] Output: Urine 1145 320 95 Other: Voiding Method Indwelling Catheter Indwelling Catheter - Exam In general patient is alert and oriented, able to communicate by writing on board in no apparent distress HEENT head normocephalic and atraumatic Neck is supple no JVD no goiter no lymphadenopathy no carotid bruit Chest examination is clear to auscultation no crackles no wheezing Cardiac exam reveals regular heart sounds S1 and S2 no gallops no murmurs Abdomen is soft nontender no organomegaly with normal bowel sounds Extremity exam reveals no edema no cyanosis or clubbing Neurological examination reveals complete expressive aphasia, and right facial drooping otherwise no focal deficit - Labs CBC & Chem 7: 10/16/22 05:41 10/16/22 05:41 Labs: Abnormal Lab Results - Last 24 Hours (Table) 10/15/22 10/15/22 10/16/22 Range/Units 09:05 09:05 05:41 WBC 28.4 H 24.9 H (3.8-10.6) k/uL Hct 46.8 H (34.0-46.0) % Plt Count 120 L (150-450) k/uL Neutrophils # 26.1 H (1.3-7.7) k/uL Lymphocytes # 0.8 L (1.0-4.8) k/uL Monocytes # 1.3 H (0-1.0) k/uL Sodium 148 H (137-145) mmol/L Potassium (3.5-5.1) mmol/L Chloride 109 H (98-107) mmol/L BUN 23 H (7-17) mg/dL Glucose 139 H (74-99) mg/dL AST 39 H (14-36) U/L Alkaline Phosphatase 237 H (38-126) U/L Albumin 3.4 L (3.5-5.0) g/dL 10/16/22 Range/Units 05:41 WBC (3.8-10.6) k/uL Hct (34.0-46.0) % Plt Count (150-450) k/uL Neutrophils # (1.3-7.7) k/uL Lymphocytes # (1.0-4.8) k/uL Monocytes # (0-1.0) k/uL Sodium 147 H (137-145) mmol/L Potassium 3.3 L (3.5-5.1) mmol/L Chloride 110 H (98-107) mmol/L BUN 24 H (7-17) mg/dL Glucose 118 H (74-99) mg/dL AST (14-36) U/L Alkaline Phosphatase (38-126) U/L Albumin (3.5-5.0) g/dL Assessment and Plan Plan: Expressive aphasia and right facial droop secondary to ischemic stroke Reoccurring ischemic stroke with right arm paralysis Leukocytosis. Chest x-ray, urinary analysis blood culture ordered consult infectious disease Increased shortness of breath. Stat chest x-ray order pulmonary services reconsulted Underlying history of lung cancer Underlying history of breast cancer Previous history of DVT 3 weeks ago, maintained on Xarelto Underlying history of left pleural effusion History of atrial fibrillation At this time patient was seen and examined in the emergency room Home medications reviewed and reordered Cardiology, pulmonary and neurology service is following JESUS completed on 10/10/2022 Will follow closely
--- NOTE | 2022-10-16 10:22 | XR ---
EXAMINATION TYPE: XR chest 1V portable DATE OF EXAM: 10/16/2022 Comparison: Earlier today Clinical History: 72-year-old female Status post right thoracentesis Findings: Redemonstrated volume loss left hemithorax with moderate left pleural effusion, loculated component a t the left upper lung. Patchy airspace opacity throughout the left lung. Aeration is improving in the right mid and upper lung with residual [id number] effusion, decreased from prior. No apprecia ble pneumothorax. Impression: Decreased, now small to moderate residual right pleural effusion with adjacent atelectasis and/or con solidation. No appreciable pneumothorax. The appearance of the left lung is unchanged.
[2022-10-16] MEDS: PANTOPRAZOLE 40 MG/10 ML VIAL IVP SCH (10:23)
[2022-10-16] MEDS: FLUCONAZOLE 100 MG TAB PO SCH (10:24)
[2022-10-16] MEDS: DOCUSATE 100 MG CAP PO SCH ×2 (10:25→20:54)
[2022-10-16 10:26] LABS: Total Protein 5.7 g/dL (6.3-8.2)
[2022-10-16] MEDS: OSIMERTINIB 80 MG PO SCH (10:44)
--- NOTE | 2022-10-16 11:02 | P.PN ---
Subjective PROGRESS NOTE The patient is a 72-year-old female with a known history of CAD who presented with a stroke and aphasia. She had a prior DVT and has been anticoagulated. She continues to be in sinus mechanism, aphasic. She denies any chest discom fort, dyspnea or dizziness. JESUS was requested by neurology, initially patient declined but she is willing to proceed with it. I discussed with her the procedure as well as with her son this morning. We'll try to find out if there is any evidence of ASD to explain her event. October 10: The patient is clinically stable since yesterday, she has no chest discomfort, dizziness or palpitations. She continues to be in sinus mechanism. Hemodynamically stable. She is scheduled to undergo JESUS today to rule out intracardiac thrombus or shunting. She was changed to Xarelto since she could not swallow Pradaxa October 11: The patient is doing well this morning, she is hemodynamically stable. She denies any chest discomfort, dizziness or palpitations. She underwent a JESUS yesterday that showed no evidence of intracardiac thrombus or shunting. She continues to be in sinus mechanism. 10/15 We have been asked to evaluate the patient for SVT. Telemetry has been reviewed and patient appears to have sinus rhythm with occasional PVCs and brief episodes of SVT. Patient states that in the past she has felt her heart rate elevated but none in the last 24 hours. Note that the SVT have been very brief. She was started on a Cardizem drip. Blood pressure 158/81. I&D 4% pulse ox on nonrebreather. Patient is waiting to undergo thoracentesis and Plavix and eliquis [place]. Ultrasound of the chest revealed good size right-sided pleural effusion and pulmonary is planning for right-sided thoracentesis possibly tomorrow. 10/16 Seen and examined. Underwent thoracentesis with 1300cc off. Patient currently on high flow. No further SVT episodes. Patient's son had previously discussed that she had a history of A. fib however was taken off of anticoagulation in the past. Very brief runs of SVT previously however given history as well as DVT would recommend continued anticoagulation. PHYSICAL EXAMINATION: LUNGS: Diminished in the right base HEART: Regular rate and rhythm, S1, S2. No S3. systolic ejection murmur ABDOMEN: Soft, nontender, no organomegaly EXTREMETIES: No edema IMPRESSION: 1. Status post CVA, source unclear, embolic. 2. History of CAD stable 3. History of hyperlipidemia 4. Recent DVT 5. History of hypertension 6. Brief episodes of SVT with underlying sinus rhythm with occasional PACs 7. Right-sided pleural effusion 8. History of Paroxysmal Afib in the past per son PLAN: Patient's son admits to a history in the past of atrial fibrillation and may be cause of stroke. . Brief runs of SVT, no obvious for A. fib however given history and additional need for anticoagulation with DVT, placed back on anticoagulation when cleared from a pulmonology standpoint. Otherwise continue carvedilol for now. No further recommendations from cardiology standpoint. Ple ase call with any questions. Follow-up in office in 1 week after discharge. Objective - Vital Signs Vital signs: Vital Signs Temp 98.2 F 10/16/22 08:00 Pulse 85 10/16/22 10:00 Resp 43 H 10/16/22 10:00 BP 123/79 10/16/22 10:00 Pulse Ox 97 10/16/22 10:00 FiO2 60 10/16/22 10:00 Intake & Output 10/15/22 10/16/22 10/16/22 18:59 06:59 18:59 Intake Total 0 970 800 Output Total 8127 167 4451 Balance -1145 650 -655 Weight 67.1 kg Intake: IV 0 970 800 Linezolid 600 mg In 300 300 Dextrose/Water 1 300ml. bag @ 150 mls/hr IVPB Q12HR [facility] Rx#:[id number] Piperacillin-Tazobactam 3 100 50 .375 gm In Sodium Chloride 0.9% 100 ml @ 25 mls/hr IVPB Q8HR [facility] Rx# :[id number] Potassium Chloride 10 meq 300 In Water For Injection 1 100ml.bag @ 100 mls/hr IVPB Q1HR [facility] Rx#: [id number] Sodium Chloride 0.9% 1, 0 120 000 ml @ 20 mls/hr IV . Q24H [facility] Rx#:[id number] Sodium Chloride 0.9% 1, 450 150 000 ml @ 75 mls/hr IV . [id number] [facility] Rx#:[id number] Output: Urine 1145 320 155 Other 1300 Other: Voiding Method Indwelling Catheter Indwelling Catheter - Labs CBC & Chem 7: 10/16/22 05:41 06/09/23 05:41 Labs: Abnormal Lab Results - Last 24 Hours (Table) 10/16/22 10/16/22 10/16/22 Range/Units 05:41 05:41 05:41 WBC 24.9 H (3.8-10.6) k/uL Plt Count 120 L (150-450) k/uL Sodium 147 H (137-145) mmol/L Potassium 3.3 L (3.5-5.1) mmol/L Chloride 110 H (98-107) mmol/L BUN 24 H (7-17) mg/dL Glucose 118 H (74-99) mg/dL Lactate Dehydrogenase 585 H (120-246) U/L Total Protein 5.7 L (6.3-8.2) g/dL
[2022-10-16] MEDS: ONDANSETRON 4 MG/2 ML VIAL IVP PRN (11:22)
--- NOTE | 2022-10-16 12:50 | P.PN ---
Subjective Progress Note Date: 10/16/22 Principal diagnosis: Ms Kat Kim is a 72 y/o female who lives in a home with 2 JOHN. Prior to admission patient was independent with mobility and ADLs. She has good suppor t from her children. Ms Kim presented to the hospital on October 01, 2022 with right sided facial droop and inability to speak. Family was concerned about a stroke. She had a head CT which was negative for acute process. Patient declined an MRI at that time. Patient's speech improved and she later discharged. Patient returned back to the hospital the same day after she had difficulty speaking again. She had CT head no acute process, CTA no acute process. She had MRI brain which revealed scattered foci in the left frontal, right frontal, parietal, posterior occipital lobes correlating with an embolic phenomenon. She has a recent lower extremity DVT, was on outpatient anticoagulation. Cardiology, neurology consulted. Patient also noted to have bilateral pleural effusions, pulmonology consulted. She has history of chronic effusions with history of breast and lung cancer. Bilateral upper and lower venous duplex completed, no acute DVT. Echo with inferior septal and basal hypokinesis. Cardiology recommended pradaxa and plavix. JESUS was not recommended yet as patient was an aspiration risk. She has progressed and is now on a chopped diet, believe plan is for JESUS within next 24 hrs. She was seen by therapies, mod assist with bathing, dressing, min assist with grooming, toilet, gait 6 ft. She has right sided paresis, per therapy notes right arm is flaccid. PM&R evaluated the patient on 10/09/2022 for consideration for Inpatient Rehab which we are agreeable to once medically stable and functionally she could benefit from it. On 10/16/2022 she underwent a thoracentesis which was found due to hypoxia. 1300 cc were removed. Cardiology following for SVT. She is currently in the ICU. Objective - Vital Signs Vital signs: Vital Signs Temp 98.2 F 10/16/22 08:00 Pulse 85 10/16/22 10:00 Resp 43 H 10/16/22 10:00 BP 123/79 10/16/22 10:00 Pulse Ox 97 10/16/22 10:00 FiO2 60 10/16/22 10:00 Intake & Output 10/15/22 10/16/22 10/16/22 18:59 06:59 18:59 Intake Total 0 970 800 Output Total 2476 664 2001 Balance -1145 650 -655 Weight 67.1 kg 67.1 kg Intake: IV 0 970 800 Linezolid 600 mg In 300 300 Dextrose/Water 1 300ml. bag @ 150 mls/hr IVPB Q12HR [facility] Rx#:[id number] Piperacillin-Tazobactam 3 100 50 .375 gm In Sodium Chloride 0.9% 100 ml @ 25 mls/hr IVPB Q8HR [facility] Rx# :[id number] Potassium Chloride 10 meq 300 In Water For Injection 1 100ml.bag @ 100 mls/hr IVPB Q1HR [facility] Rx#: [id number] Sodium Chloride 0.9% 1, 0 120 000 ml @ 20 mls/hr IV . Q24H [facility] Rx#:[id number] Sodium Chloride 0.9% 1, 450 150 000 ml @ 75 mls/hr IV . [id number] [facility] Rx#:[id number] Output: Urine 1145 320 155 Other 1300 Other: Voiding Method Indwelling Catheter Indwelling Catheter - Exam General: The patient appears stated age, comfortable, NAD Head: Normocephalic, atraumatic. Eyes: Symmetric Ears: Symmetric. Hearing within normal limits. Mouth: Clear. Neck: Supple. Cardiac: Calves supple, non tender, no edema Lungs: Breathing comfortably on O2 NC. Chest symmetric. Abdomen: Soft, nontender. Extremities: RUE flaccid Neurological: Expressive aphasia. following commands appropriately. Cranial nerves: Right facial droop Sensation: Intact and symmetrical limbs. Musculoskeletal: MMT UE Sh Abd EE EF FABD WE HG Right 0 0 0 0 0 0 Left 5 5 5 5 5 5 MMT LE HF KE DF EHL Right 3 4 4 4 Left 5 5 5 5 Skin: Skin intact where visible to head, neck, and bilateral upper and lower extremities Psych: Calm, cooperative - Labs CBC & Chem 7: 10/16/22 05:41 10/16/22 05:41 Labs: Abnormal Lab Results - Last 24 Hours (Table) 10/16/22 10/16/22 10/16/22 Range/Units 05:41 05:41 05:41 WBC 24.9 H (3.8-10.6) k/uL Plt Count 120 L (150-450) k/uL Sodium 147 H (137-145) mmol/L Potassium 3.3 L (3.5-5.1) mmol/L Chloride 110 H (98-107) mmol/L BUN 24 H (7-17) mg/dL Glucose 118 H (74-99) mg/dL Lactate Dehydrogenase 585 H (120-246) U/L Total Protein 5.7 L (6.3-8.2) g/dL Assessment and Plan Assessment: # 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 # Skin/wound: Skin/Wound care to follow as needed # Pain Management per MAR # DVT Prophylaxis: Defer to Cardio # Comorbidities: OA, AFib # Your medical dx and mgt Goals: Modified Independent mobility and ADLS both basic and advanced; increased functional mobility/strength; increased balance, safety, endurance. Improvement in medical issues through your care. Barriers: endurance, fall risk, aspiration risk, right hemiparesis, expressive aphasia Discharge recommendation: Recommending IPR when medically stable. Will follow. Uday Hopson D.O.
--- NOTE | 2022-10-16 13:41 | OP ---
OPERATIVE REPORT DATE OF SERVICE : PROCEDURE PERFORMED: Right-sided thoracentesis. PREOPERATIVE DIAGNOSIS: Large right pleural effusion. POSTOPERATIVE DIAGNOSIS: Large right pleural effusion. ANESTHESIA USED: 2 mL of 1% lidocaine. DESCRIPTION OF PROCEDURE: The patient was placed in a sitting upright position, the area below the right scapula was prepared in a sterile fashion. Drapes were applied. The area was earlier localized by ultrasound guidance, locally anesthetized, and this was at the level of the 8th intercostal space and tip of the scapula. Then, a 26-gauge needle was inserted at the same site and advanced into the pleural space. Fluid was localized to the needle. Then, using a standard thoracentesis catheter and needle, inserted at the same site, advanced into the pleural space. Fluid was localized. Then, the catheter was advanced out of the needle, and the needle was pulled out of the pleural space. Freely flowing fluid was removed, roughly 1300 mL of slightly serosanguineous fluid was removed from the right pleural space. Fluid was sent for different diagnostic studies. Procedure was well tolerated, no complications, and no pneumothorax after the procedure. Chest x-ray was reviewed. MMODL / IJN: [id number] /
--- NOTE | 2022-10-16 14:28 | P.PN ---
Subjective Progress Note Date: 10/16/22 Principal diagnosis: History of breast cancer, metastatic lung cancer, on treatment for both. Admitted with CVA symptoms Patient continues to be aphasic. S?P left-sided thoracentesis with 1300 mL removed. Fluids and cytology sent. patient denies pain. Breathing even and unlabored. Pt currently on high flow nasal cannula 8L at 92% Objective - Vital Signs Vital signs: Vital Signs Temp 97.9 F 10/16/22 12:00 Pulse 77 10/16/22 13:00 Resp 19 10/16/22 13:00 BP 131/92 10/16/22 13:00 Pulse Ox 95 10/16/22 13:00 FiO2 100 10/16/22 10:20 Intake & Output 10/15/22 10/16/22 10/16/22 18:59 06:59 18:59 Intake Total 0 970 1000 Output Total 6666 462 0008 Balance -1145 650 -545 Weight 67.1 kg 67.1 kg Intake: IV 0 970 1000 Linezolid 600 mg In 300 300 Dextrose/Water 1 300ml. bag @ 150 mls/hr IVPB Q12HR [facility] Rx#:[id number] Piperacillin-Tazobactam 3 100 75 .375 gm In Sodium Chloride 0.9% 100 ml @ 25 mls/hr IVPB Q8HR [facility] Rx# :[id number] Potassium Chloride 10 meq 400 In Water For Injection 1 100ml.bag @ 100 mls/hr IVPB Q1HR [facility] Rx#: [id number] Sodium Chloride 0.9% 1, 0 120 000 ml @ 20 mls/hr IV . Q24H [facility] Rx#:[id number] Sodium Chloride 0.9% 1, 450 225 000 ml @ 75 mls/hr IV . [id number] [facility] Rx#:[id number] Output: Urine 1145 320 245 Other 1300 Other: Voiding Method Indwelling Catheter Indwelling Catheter Indwelling Catheter - Constitutional General appearance: Present: average body habitus, no acute distress - EENT Eyes: Present: anicteric sclerae, EOMI ENT: Present: hearing grossly normal - Respiratory Details: breathing even and unlabored - Cardiovascular Details: skin warm and dry - Integumentary Integumentary: Absent: cyanotic, rash - Neurologic Neurologic Comment(s): Aphasia - Musculoskeletal Musculoskeletal: Present: generalized weakness - Labs CBC & Chem 7: 10/16/22 05:41 10/16/22 05:41 Labs: Abnormal Lab Results - Last 24 Hours (Table) 10/16/22 10/16/22 10/16/22 Range/Units 05:41 05:41 05:41 WBC 24.9 H (3.8-10.6) k/uL Plt Count 120 L (150-450) k/uL Sodium 147 H (137-145) mmol/L Potassium 3.3 L (3.5-5.1) mmol/L Chloride 110 H (98-107) mmol/L BUN 24 H (7-17) mg/dL Glucose 118 H (74-99) mg/dL Lactate Dehydrogenase 585 H (120-246) U/L Total Protein 5.7 L (6.3-8.2) g/dL Assessment and Plan (1) Cancer of lung Current Visit: Yes Status: Acute Priority: High Code(s): C34.90 - MALIG NANT NEOPLASM OF UNSP PART OF UNSP BRONCHUS OR LUNG SNOMED Code(s): 556970303 (2) Cerebrovascular accident (CVA) Current Visit: Yes Status: Acute Priority: High Code(s): I63.9 - CEREBRAL INFARCTION, UNSPECIFIED SNOMED Code(s): 730373670 (3) History of breast cancer Current Visit: Yes Status: Chronic Priority: High Code(s): Z85.3 - PERSONAL HISTORY OF MALIGNANT NEOPLASM OF BREAST SNOMED Code(s): 606418429 Plan: Recurrent CVA -JESUS neg -Was on xarelto for DVT when she developed CVA. Now on eliquis and plavix. No evidence of bleeding, hemoglobin stable -Antiphospholipid ab work up neg. Patient is okay to continue on eliquis for anticoagulation. Regarding the lupus anticoagulant, being positive while on anticoagulation is not considered a true positive. If it is neg, it is a true negative. It will be rechecked outpatient. Breast cancer -cont arimidex. 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 She is current on f/u and has been doing well -F/U with Medical Onc after rehab Pleural effusions: -chest x-ray revealed [id number] right residual pleural effusion with adjacent atelectasis and/or consolidation. No appreciable pneumothorax. The a ppearance of the left lung is unchanged. -Patient underwent right-sided thoracentesis today with Dr. Ambrose and 1300 mL was removed. Fluid analysis and cytology ordered. Breathing has improved, off B iPAP, transitioned to high flow NC
--- NOTE | 2022-10-16 14:29 | P.PN ---
Subjective Progress Note Date: 10/16/22 Principal diagnosis: Acute CVA and pleural effusions 72-year-old female with a history of breast cancer, presents to the emergency department on October 01, complaining of strokelike symptoms. The patient apparently had a slight right-sided facial droop, and was unable to speak. The patient was admitted to the hospital, and we are asked to see her for her chronic left-sided effusion. The patient has had a thoracentesis in the past, which I believe was done at [facility]. Currently, the patient's on room air, and not receiving any IV fluids. The speech pathologist was in room with her. We saw her in 378. Her medical history includes rest cancer, hypertension, myocardial infarction, osteoarthritis, and apparently the patient is a lifelong nonsmoker. She has had a catheterization with stent placement in her right coronary artery. She appears in no distress. CBC is completely normal. PT 12.3 with an INR 1.2. PTT is 31.6. Electrolytes are normal including sodium, potassium, chloride, carbon dioxide, anion gap, BUN, and creatinine. Glucose 104. The rest of the comprehensive metabolic profile is essentially normal. Urine is negative. Drug screen was negative. Chest x-ray shows a moderate left-sided effusion, and a small right-sided effusion. Brain CT was negative. Angiography, CT, showed no evidence of high-grade stenosis. Brain MRI showed scattered foci of restricted diffusion compatible with acute subacute LINDA. There were multiple vascular distributions. No evidence for mass. I am seeing this patient in follow-up today 10/15/2022, the patient had been admitted back on October 01, mainly for CVA-like symptoms. Pulmonary had signed off the case, and we were re-consulted yesterday for increased oxygen demands. The patient is a 72-year-old female with past medical history significant for right breast ductal carcinoma and metastatic non-small cell lung cancer which she was undergoing treatment for these on an outpatient basis. Patient also has history of recurrent left-sided pleural effusion, hypertension, coronary artery disease with prior stent to the RCA, DVT. Earlier this morning, the patient did develop some respiratory distress and tachycardia. The patient was reportedly in SVT, and started on a Cardizem infusion, which is currently infusing at 10 mg per hour. On my evaluation, the patient is currently sitting in bed, on a 15 L nonrebreather, fairly comfortable. She does not communicate. A chest CT without contrast was done yesterday afternoon showed an new moderate size right pleural effusion and right upper lobe edema and/or acute infiltrate. There was also a stable left-sided pleural effusion, diffuse left lung opacities which could reflect fibrosis, edema or possibly posttreatment changes, and a unchanged 2.5 cm left mid lung mass or neoplasm. Most recent CBC from yesterday shows increasing leukocytosis with a WBC count of 26.4, hemoglobin 14.7, hematocrit 46, platelets 194. She has been afebrile. Empirically covered on Zosyn. Pro calcitonin level was low at 0.02. BMP from yesterday shows a sodium 146, potassium 4, chloride 109, serum CO2 28, BUN 22, creatinine 0.56, glucose 123. Normal saline is currently infusing at KVO. Patient will likely need thoracentesis. Patient was reevaluated today on 10/16/2022, I was notified about this patient yesterday that she was having worsening shortness of breath, hence I recommended that the patient goes on BiPAP, and transferred to ICU. I saw this patient today, she has been off anticoagulation therapy for the last 2 days, hence I would proceed with thoracentesis on the right side. Indeed I did do a thoracentesis and I was able to remove 1500 mL of slightly serosanguineous fluid from the right pleural space. Patient felt much better and the chest x-ray showed significant improvement nonetheless the patient continues to have sig nificant airspace disease possibly pneumonia on the left side, and possibly some small pleural effusions. This was not large enough on ultrasound to consider left-sided thoracentesis. Patient remains on multiple medications, remains on Ventimask, overall status is marginal. Remains on antibiotics, continues to have leukocytosis. Blood cultures remain negative since 10/11 Significant airspace disease and opacities noted throughout the left lung. Objective - Vital Signs Vital signs: Vital Signs Temp 97.9 F 10/16/22 12:00 Pulse 77 10/16/22 13:00 Resp 19 10/16/22 13:00 BP 131/92 10/16/22 13:00 Pulse Ox 95 10/16/22 13:00 FiO2 100 10/16/22 10:20 Intake & Output 10/15/22 10/16/22 10/16/22 18:59 06:59 18:59 Intake Total 0 970 1000 Output Total 7799 333 5779 Balance -1145 650 -545 Weight 67.1 kg 67.1 kg Intake: IV 0 970 1000 Linezolid 600 mg In 300 300 Dextrose/Water 1 300ml. bag @ 150 mls/hr IVPB Q12HR [facility] Rx#:[id number] Piperacillin-Tazobactam 3 100 75 .375 gm In Sodium Chloride 0.9% 100 ml @ 25 mls/hr IVPB Q8HR [facility] Rx# :[id number] Potassium Chloride 10 meq 400 In Water For Injection 1 100ml.bag @ 100 mls/hr IVPB Q1HR [facility] Rx#: [id number] Sodium Chloride 0.9% 1, 0 120 000 ml @ 20 mls/hr IV . Q24H [facility] Rx#:[id number] Sodium Chloride 0.9% 1, 450 225 000 ml @ 75 mls/hr IV . [id number] [facility] Rx#:[id number] Output: Urine 1145 320 245 Other 1300 Other: Voiding Method Indwelling Catheter Indwelling Catheter Indwelling Catheter - Exam GENERAL EXAM: 72-year-old female on BiPAP, noted to be dyspneic with any activity and at rest. HEAD: Normocephalic and atraumatic EYES: Normal reaction of pupils, equal size. NOSE: Clear with pink turbinates. THROAT: No erythema or exudates. NECK: No masses, no JVD. CHEST: No chest wall deformity. LUNGS: Crackles and rhonchi noted bilaterally. CVS: Irregular rhythm, normal S1 and S2, no S3 gallop. ABDOMEN: No hepatosplenomegaly, active bowel sounds, no guarding or rigidity. SPINE: No scoliosis or deformity SKIN: No rashes CENTRAL NERVOUS SYSTEM: Patient seems to be a bit confused, nonverbal. Follows simple instructions EXTREMITIES: There is no peripheral edema, clubbing, or cyanosis. Peripheral pulses are intact. - Labs CBC & Chem 7: 10/16/22 05:41 10/16/22 05:41 Labs: Abnormal Lab Results - Last 24 Hours (Table) 10/16/22 10/16/22 10/16/22 Range/Units 05:41 05:41 05:41 WBC 24.9 H (3.8-10.6) k/uL Plt Count 120 L (150-450) k/uL Sodium 147 H (137-145) mmol/L Potassium 3.3 L (3.5-5.1) mmol/L Chloride 110 H (98-107) mmol/L BUN 24 H (7-17) mg/dL Glucose 118 H (74-99) mg/dL Lactate Dehydrogenase 585 H (120-246) U/L Total Protein 5.7 L (6.3-8.2) g/dL Assessment and Plan Assessment: Impression: Acute CVA with multiple embolic phenomenon and right hemiparesis as well as expressive aphasia Bilateral pleural effusions felt to be cardiac in nature unless for otherwise although the possibility of parapneumonic effusion is not entirely ruled out. Status post thoracentesis on the right side/01/2023, and 1500 mL of fluid removed History of lung cancer History of breast cancer Chronic atrial fibrillation Expressive aphasia secondary to CVA Possible aspiration pneumonia based on findings on the chest x-ray especially on the left side. Leukocytosis secondary to above. History of stable coronary artery disease Benign essential hypertension Recent history of deep vein thrombosis Recommendation: Continue present supportive care measures Resume anticoagulation therapy after the thoracentesis Continue antibiotics Awaiting the results of the pleural effusion Consider discussing CODE STATUS and changing CODE STATUS to DO NOT RESUSCITATE CODE STATUS of the patient seems to be quite ill, and she has very poor prognosis We will continue to follow Will transfer back to the cardiac floor possibly in the next 24 hours. Time with Patient: Less than 30
[2022-10-16] MEDS: CLOPIDOGREL 75 MG TAB PO SCH (15:40)
--- NOTE | 2022-10-16 15:46 | P.PN ---
Subjective Progress Note Date: 10/16/22 Principal diagnosis: Leukocytosis Patient is a 72-year-old female with multiple comorbidities has been in the hospital for more than 10 days currently being evaluated and treatment for possible stroke and noticed to have elevated white count. On today's evaluation that is 10/16/2022 patient denies having any fever or chills , the patient did have worsening of respiratory status requiring transfer to the ICU patient however currently is down to 6 L nasal cannula oxygen and denies having any chest pain or worsening cough no nausea no vomiting no abdominal pain or diarrhea Objective - Vital Signs Vital signs: Vital Signs Temp 98.2 F 10/16/22 08:00 Pulse 85 10/16/22 10:00 Resp 43 H 10/16/22 10:00 BP 123/79 10/16/22 10:00 Pulse Ox 97 10/16/22 10:00 FiO2 60 10/16/22 10:00 Intake & Output 10/15/22 10/16/22 10/16/22 18:59 06:59 18:59 Intake Total 0 970 800 Output Total 8363 010 8464 Balance -1145 650 -655 Weight 67.1 kg 67.1 kg Intake: IV 0 970 800 Linezolid 600 mg In 300 300 Dextrose/Water 1 300ml. bag @ 150 mls/hr IVPB Q12HR [facility] Rx#:[id number] Piperacillin-Tazobactam 3 100 50 .375 gm In Sodium Chloride 0.9% 100 ml @ 25 mls/hr IVPB Q8HR [facility] Rx# :[id number] Potassium Chloride 10 meq 300 In Water For Injection 1 100ml.bag @ 100 mls/hr IVPB Q1HR [facility] Rx#: [id number] Sodium Chloride 0.9% 1, 0 120 000 ml @ 20 mls/hr IV . Q24H [facility] Rx#:[id number] Sodium Chloride 0.9% 1, 450 150 000 ml @ 75 mls/hr IV . [id number] [facility] Rx#:[id number] Output: Urine 1145 320 155 Other 1300 Other: Voiding Method Indwelling Catheter Indwelling Catheter - Exam GENERAL DESCRIPTION: Elderly female up in the chair in no distress RESPIRATORY SYSTEM: Unlabored breathing , decreased breath sounds at bases HEART: S1 S2 regular rate and rhythm ,no loud murmurs ABDOMEN: Soft , no tenderness EXTREMITIES: No edema feet - Labs CBC & Chem 7: 10/16/22 05:41 10/16/22 05:41 Labs: Abnormal Lab Results - Last 24 Hours (Table) 10/16/22 10/16/22 10/16/22 Range/Units 05:41 05:41 05:41 WBC 24.9 H (3.8-10.6) k/uL Plt Count 120 L (150-450) k/uL Sodium 147 H (137-145) mmol/L Potassium 3.3 L (3.5-5.1) mmol/L Chloride 110 H (98-107) mmol/L BUN 24 H (7-17) mg/dL Glucose 118 H (74-99) mg/dL Lactate Dehydrogenase 585 H (120-246) U/L Total Protein 5.7 L (6.3-8.2) g/dL Assessment and Plan (1) Leukocytosis Current Visit: Yes Status: Acute Code(s): D72.829 - ELEVATED WHITE BLOOD CELL COUNT, UNSPECIFIED SNOMED Code(s): 918755166 (2) Pneumonia Current Visit: Yes Status: Acute Code(s): J18.9 - PNEUMONIA, UNSPECIFIED ORGANISM SNOMED Code(s): 827327005 Plan: 1patient with elevated white count and this patient admitted to hospital about 10 days ago predominantly for strokelike symptoms and nonverbal MRI was suspicious for possible embolic phenomena and is being evaluated by cardiology pulmonary service since patient did receive 1 dose of steroids on admission but no steroids since then has been complaining of some sores in the mouth and concern for possible thrush/oropharyngeal candidiasis, patient did not have any fever urine has been negative chest x-ray bilateral effusion with left greater than right progressively suspicious disease with question of possible fluid related however the patient also complaining of some cough with sputum production underlying pneumonia less likely but not entirely excluded 2-blood cultures has been negative so far patient did have elevated CRP of 7.0 however did have a normal procalcitonin sputum culture has been requested 3-Patient did have worsening respiratory status and concern for possible recurrent aspiration pneumonia, patient has been transferred to the ICU 4-patient white count is down to 24,000 today to continue with the Zosyn and Zyvox and monitor clinical course closely Time with Patient: Less than 30
[2022-10-16] MEDS: ATORVASTATIN 40 MG TAB PO SCH (20:53)
[2022-10-16] MEDS: APIXABAN 5 MG TAB PO SCH (20:54)
[2022-10-17] MEDS: PIPERACILLIN-TAZOBACTAM 3.375 GM in SODIUM CHLORIDE 0.9% 100 ML IVPB SCH ×4 (00:42→23:21)
[2022-10-17] MEDS: SODIUM CHLORIDE 0.9% 1,000 ML IV SCH ×4 (04:24→18:22)
[2022-10-17 04:25] LABS: Basophils % (A) 0 %; Eosinophils # (A) 0.1 k/uL (0-0.7); Eosinophils % (A) 0 %; HCT 39.8 % (34.0-46.0); HGB 12.7 gm/dL (11.4-16.0); Lymphocytes # (A) 0.8 k/uL (1.0-4.8); Lymphocytes % (A) 4 %; MCH 29.6 pg (25.0-35.0); MCV 92.6 fL (80.0-100.0); Mean Platelet Volume 10.4; Monocytes % (A) 5 %; Neutrophils % (A) 90 %
[2022-10-17 04:30] LABS: ALT 30 U/L (4-34); AST 51 U/L (14-36); African American GFR (CKD) >90 (>60 ml/min/1.73 sqM); Albumin 2.6 g/dL (3.5-5.0); Alkaline Phosphatase 192 U/L (38-126); Anion Gap 5 mmol/L; Blood Urea Nitrogen 21 mg/dL (7-17); Calcium 8.4 mg/dL (8.4-10.2); Carbon Dioxide 30 mmol/L (22-30); Chloride 110 mmol/L (98-107); Glucose 103 mg/dL (74-99); Non-African American GFR(CKD) 89 (>60 ml/min/1.73 sqM); Potassium 3.3 mmol/L (3.5-5.1); Sodium 145 mmol/L (137-145); Total Bilirubin 0.6 mg/dL (0.2-1.3); Total Protein 5.1 g/dL (6.3-8.2)
[2022-10-17 04:43] LABS: Glucose, Body Fluid 89 mg/dL; LDH, Body Fluid Source Pleural Fluid; T. Protein, Body Fluid Source Pleural Fluid; Total Protein, Body Fluid >3600 mg/dL
[2022-10-17 04:52] LABS: Platelet Count 81 k/uL (150-450)
[2022-10-17] MEDS: ONDANSETRON 4 MG/2 ML VIAL IVP PRN (05:18)
[2022-10-17] MEDS: POTASSIUM BICARBONATE/CIT AC 20 MEQ TABLET.EFF NG-TUBE SCH ×2 (06:45→08:46)
[2022-10-17] MEDS: carvediloL 3.125 MG TAB PO SCH ×2 (06:45→18:14)
[2022-10-17] MEDS: CLOPIDOGREL 75 MG TAB PO SCH (08:46)
[2022-10-17] MEDS: OSIMERTINIB 80 MG PO SCH (08:46)
[2022-10-17] MEDS: lisinopriL 5 MG TAB PO SCH ×2 (08:46→20:41)
[2022-10-17] MEDS: DOCUSATE 100 MG CAP PO SCH ×2 (08:46→20:41)
[2022-10-17] MEDS: APIXABAN 5 MG TAB PO SCH ×2 (08:46→18:23)
[2022-10-17] MEDS: PANTOPRAZOLE 40 MG/10 ML VIAL IVP SCH (08:47)
[2022-10-17] MEDS: ANASTROZOLE 1 MG TAB PO SCH (08:48)
[2022-10-17] MEDS: FLUCONAZOLE 100 MG TAB PO SCH (08:48)
[2022-10-17] MEDS: LACTULOSE 20 GM/30 ML CUP PO SCH ×4 (08:49→20:41)
[2022-10-17] MEDS: LINEZOLID 600 MG in DEXTROSE/WATER 1 300ML.BAG IVPB SCH ×2 (09:33→20:41)
--- NOTE | 2022-10-17 09:42 | P.PN ---
Subjective Progress Note Date: 10/17/22 Principal diagnosis: Leukocytosis Patient is a 72-year-old female with multiple comorbidities has been in the hospital for more than 10 days currently being evaluated and treatment for possible stroke and noticed to have elevated white count. On today's evaluation that is 10/17/2022 patient remains to be afebrile the patient is breathing more comfortably currently not a 4 L nasal cannula oxygen, patient denies having any chest pain and no worsening cough or sputum production no abdominal pain no choking on the food has reported by the nursing staff and no diarrhea Objective - Vital Signs Vital signs: Vital Signs Temp 98.9 F 10/17/22 04:00 Pulse 89 10/17/22 07:00 Resp 23 10/17/22 07:00 BP 184/88 10/17/22 07:00 Pulse Ox 90 L 10/17/22 07:00 FiO2 100 10/16/22 10:20 Intake & Output 10/16/22 10/17/22 10/17/22 18:59 06:59 18:59 Intake Total 1375 1375 Output Total 1660 385 Balance -285 990 Weight 67.1 kg 68.7 kg Intake: IV 1375 1375 Linezolid 600 mg In 300 300 Dextrose/Water 1 300ml. bag @ 150 mls/hr IVPB Q12HR [facility] Rx#:[id number] Piperacillin-Tazobactam 3 75 100 .375 gm In Sodium Chloride 0.9% 100 ml @ 25 mls/hr IVPB Q8HR [facility] Rx# :[id number] Potassium Chloride 10 meq 400 In Water For Injection 1 100ml.bag @ 100 mls/hr IVPB Q1HR [facility] Rx#: [id number] Sodium Chloride 0.9% 1, 600 975 000 ml @ 75 mls/hr IV . [id number] [facility] Rx#:[id number] Output: Urine 360 385 Other 1300 Other: Voiding Method Indwelling Catheter Indwelling Catheter - Exam GENERAL DESCRIPTION: Elderly female up in the chair in no distress RESPIRATORY SYSTEM: Unlabored breathing , decreased breath sounds at bases HEART: S1 S2 regular rate and rhythm ,no loud murmurs ABDOMEN: Soft , no tenderness EXTREMITIES: No edema feet - Labs CBC & Chem 7: 10/17/22 03:27 10/17/22 03:27 Labs: Abnormal Lab Results - Last 24 Hours (Table) 10/14/22 10/16/22 10/17/22 Range/Units 10:44 05:41 03:27 WBC 20.0 H (3.8-10.6) k/uL Plt Count 81 L (150-450) k/uL Neutrophils # 18.0 H (1.3-7.7) k/uL Lymphocytes # 0.8 L (1.0-4.8) k/uL von Willebrand Antigen 488 H (52-214) % Potassium (3.5-5.1) mmol/L Chloride (98-107) mmol/L BUN (7-17) mg/dL Glucose (74-99) mg/dL AST (14-36) U/L Alkaline Phosphatase (38-126) U/L Lactate Dehydrogenase 585 H (120-246) U/L Total Protein 5.7 L (6.3-8.2) g/dL Albumin (3.5-5.0) g/dL 10/17/22 Range/Units 03:27 WBC (3.8-10.6) k/uL Plt Count (150-450) k/uL Neutrophils # (1.3-7.7) k/uL Lymphocytes # (1.0-4.8) k/uL von Willebrand Antigen (52-214) % Potassium 3.3 L (3.5-5.1) mmol/L Chloride 110 H (98-107) mmol/L BUN 21 H (7-17) mg/dL Glucose 103 H (74-99) mg/dL AST 51 H (14-36) U/L Alkaline Phosphatase 192 H (38-126) U/L Lactate Dehydrogenase (120-246) U/L Total Protein 5.1 L (6.3-8.2) g/dL Albumin 2.6 L (3.5-5.0) g/dL Assessment and Plan (1) Leukocytosis Current Visit: Yes Status: Acute Code(s): D72.829 - ELEVATED WHITE BLOOD CELL COUNT, UNSPECIFIED SNOMED Code(s): 239188188 (2) Pneumonia Current Visit: Yes Status: Acute Code(s): J18.9 - PNEUMONIA, UNSPECIFIED ORGANISM SNOMED Code(s): 534477859 Plan: 1patient with elevated white count and this patient admitted to hospital about 10 days ago predominantly for strokelike symptoms and nonverbal MRI was suspicious for possible embolic phenomena and is being evaluated by cardiology pulmonary service since patient did receive 1 dose of steroids on admission but no steroids since then has been complaining of some sores in the mouth and concern for possible thrush/oropharyngeal candidiasis, patient did not have any fever urine has been negative chest x-ray bilateral effusion with left greater than right progressively suspicious disease with question of possible fluid related however the patient also complaining of some cough with sputum production underlying pneumonia less likely but not entirely excluded 2-blood cultures has been negative so far patient did have elevated CRP of 7.0 however did have a normal procalcitonin sputum culture has been requested 3-Patient did have clinical improvement at the patient white count is trending down to 20,000 patient is requiring left supplemental oxygen 4-we will continue the patient on Zosyn and Zyvox try to obtain a sputum to narrow down antibiotics Time with Patient: Less than 30
--- NOTE | 2022-10-17 11:22 | P.PN ---
Subjective Progress Note Date: 10/17/22 Kat Kim, is a 72-year-old female who presented to [facility] emergency room with a chief complaint difficulty with her speech, and right facial drooping, patient presented to emergency room with similar complaints yesterday, at that time she was offered MRI and admission by [facility] room physician however she felt that she was improving and she opted to go home. However over the next several hours patient developed complete aphasia, she was brought back to the emergency room by her family. She was evaluated in the emergency room vital examination on presentation revealed a temperature of 99 pulse 84 respiration 18 blood pressure 160/87 pulse ox 94% on room air Laboratory data revealed a white blood count of 7.1 hemoglobin 14.6 platelet count 167 sodium 137 potassium 4.3 chloride 102 CO2 29 BUN 9 creatinine 0.56 urine analysis revealed no evidence of infection and urine toxicology screen was negative Testing in the emergency room revealed, computed tomography scan of the brain without contrast was done in the emergency room and revealed no acute intracranial process, CT angiogram of the brain done in the emergency room revealed no evidence of dissection of the cervical internal carotid arteries or vertebral arteries or any evidence of significant stenosis at the carotid bifurcation there was no evidence of intracranial high-grade stenosis or intracranial aneurysm Patient was admitted to medical floor for further evaluation and treatment, neurology consultation was requested Past medical history is significant for history of breast cancer, history of stacey ng cancer, history of atrial fibrillation, history of lower extremity DVT, patient was maintained on Xarelto At home On 10/02/2022. Patient is currently resting in room remains with difficulty in speech and right facial drooping. MRI of the brain was completed showing scattered foci of restricted diffusion compatible with acute or subacute CVA given multiple vascular distributions correlate for emboli phenomenon. Neurology services are following. Cardiology services also consulted. Current vital signs temp 98.1, heart rate 74, blood pressure 129/67 pulse ox of 94% on room air On 10/03/2022, patient was seen and examined on telemetry, case was discussed in details with Dr. Amadou López neurologist, patient is developing more difficulty with swallowing, recommendation from neurology is to proceed with JESUS, to rule out cardiac thrombus or PFO. However due to significant difficulty with swallowing, cardiology wanted to wait at this time on JESUS. Recommendation from neurology at this time is to proceed with upper and lower bilateral lower extremity Doppler to rule out acute DVT, and to start anticoagulation starting tomorrow. On 10/04/2022 patient is sitting comfortably in chair. Patient remains nonverbal. Pradaxa has been started per cardiology and neurology recommendations. Current vital signs temp 97.5, heart rate 77, respiratory rate 16, blood pressure 1 5476 with pulse ox 93% on room air. Per cardiology at this time JESUS remains on hold due to difficulty in swallowing. On 10/05/2022 patient was seen and examined on the medical she is alert and oriented 3 in no apparent distress, she is sitting up in a chair, she still has significant facial drooping, she has complete aphasia, she tries to answer questions by nodding her head, she is still having significant difficulty with swallowing, cardiology note reviewed, no plans for JESUS at this time due to difficulty swallowing and the risk of aspiration, she was started on Pradaxa for anticoagulation, she is having difficulty swallowing the pill as it cannot be crushed. At this time will continue with physical therapy, occupational therapy, and speech therapy, will reassess in a.m. On 10/06/2022 patient was seen and examined the medical floor she is alert and oriented in no apparent distress, she is sitting up in a chair she still has complete aphasia, she is having difficulty swallowing, she is complaining of constipation, otherwise she denies any complaints there is no fever or chills no headache or dizziness no chest pain no shortness of breath no cough no nausea or vomiting no abdominal pain no diarrhea and no urinary symptoms. At this time, JESUS will be delayed until patient has better swallowing per cardiology, possibility of rehab admission discussed with patient however she is indicating that she wants to go home, possible discharge to home tomorrow if stable and no further recommendation from cardiology or neurology On 10/07/2022 patient is currently sitting in chair. Patient's son at bedside. Per patient's son patient had a fall this a.m. due to new onset of weakness to her right arm. Patient denies any injuries from fall but does report that the right arm weakness started last night. This is new per son. At this time will do a head CT and discussed with nursing staff to notify neurology services. patient denies chest pain or shortness of breath. Patient denies nausea vomiting or diarrhea. Patient denies any urinary burning or frequency. On 10/08/2022 patient was seen and examined on the telemetry floor she is alert responsive in no apparent distress she is still completely aphasic, she is answering questions by nodding her head, she is still having right sided facial drooping and difficulty swallowing, she also now has complete paralysis of the right upper extremity, neurology are following closely, they recommended JESUS however per their notes patient has refused to complete test. Medication were reviewed will continue with current management will discuss with neurology further treatment steps. On 10/09/2022 patient is currently resting comfortably in bed. Patient have some movement to right extremity no further new neurological symptoms. Patient still having right-sided facial drooping and difficulty swallowing. Patient's son is at bedside per family trying to convince patient to move forward with JESUS. Neurology services are following this time patient denies chest pain or shortness of breath. Patient denies nausea vomiting or diarrhea. Patient denies any urinary burning or frequency On 10/10/2022 patient was seen and examined on the telemetry floor she is alert and oriented 3 in no apparent distress she is still having right facial drooping, complete expressive aphasia, difficulty swallowing, and right upper extremity paralysis, she is scheduled for JESUS today, awaiting further input from neurology and cardiology, possible transfer to rehab on Wednesday if stable and no further recommendation for any testing and intervention. On 10/11/2022 patient is alert and oriented 3 currently sitting up in chair. Patient continues to have right facial drooping complete expressive aphasia, difficulty swallowing and right upper extremity paralysis. No new neurological symptoms noted. Patient did have JESUS completed. White blood cell trending up 15.6 will order chest x-ray urinalysis blood culture and consult infectious dis ease. On 10/12/2022 patient was seen and examined on the telemetry floor she is alert and oriented in no apparent distress, she is still having right sided facial drooping, complete expressive aphasia, and difficulty swallowing, she is also having severe paralysis of the right upper extremity. I have discussed her case in details with Dr. Rondon and with Dr. Dye on neurology, patient failed on Xarelto and had a stroke while she was taking Xarelto, recommendation by cardiology was to switch to Pradaxa, which was done a few days ago, however patient was not able to swallow Pradaxa pills, and it's not recommended that those pills are crushed, so cardiology switched her back to Xarelto, however upon discussion today with neurology Dr. Amadou Dye, he recommended to switch to Eliquis. At this time will discontinue Xarelto today and start with Eliquis in a.m. tomorrow. Patient also has elevated white blood count possibly related to aspiration even though chest x-ray is not revealing evidence of pneumonia, patient is followed by infectious disease she is maintained on IV antibiotic, wi ll continue to follow closely. There is a bed available for patient in [facility] rehab unit, however due to elevated white blood count and use of IV antibiotics, she is not stable enough yet for transfer. Will follow in a.m.. Prognosis is guarded. On 10/13/2022 patient was seen and examined on the telemetry floor she is alert responsive in no apparent distress, clinically there is no significant change in her condition since yesterday, her white blood count is increasing up to 24.2 from 16.[address] Berg is following antibiotic were changed today to Zosyn, vital exam reveals a temperature of 97.8 pulse 56 respiration 18 blood pressure 140/73 pulse ox 91% on room air. No new recommendation from neurology or cardiology, will continue to follow closely, prognosis is guarded On 10/14/2022 patient is alert responsive sitting in bed patient does appear to have increased shortness of breath requiring increased oxygen at 5 L. This time a ordered stat chest x-ray and consult pulmonary services. Patient is on antibiotics of IV Zosyn. Infectious disease services are following. Patient denies chest pain. Patient denies nausea vomiting or diarrhea. She remains on anticoagulation of eliquis and Plavix On 10/15/2022 patient was seen and examined on the medical floor she is alert and responsive in no apparent distress she is still nonverbal she still has complete paralysis of the right upper extremity she still has facial drooping and difficulty swallowing, during test lead hours patient had episode of SVT with heart rate 120- 150 cardiology were contacted and she was started on IV Cardizem drip, white blood count continue to increase pulmonary and infectious disease are following currently patient is maintained on Zosyn and Zyvox possibility of thoracentesis is being discussed. Patient is not appropriate to discharge to rehab at this point will continue to follow closely. On 10/16/2022 patient was seen and examined in the ICU, over night patient developed worsening shortness of breath, she was transferred from the telemetry floor to the ICU and was started on BiPAP, pulmonary is following, and are planning for thoracentesis this morning, otherwise no change in condition since yesterday, prognosis remains guarded, pulmonary cardiology infectious disease and neurology are following. On 10/17/2022 patient was seen and examined in the ICU, she is alert responsive in no apparent distress, she is still nonverbal, she has right sided facial drooping, aphasia, and the right upper extremity paralysis, her shortness of breath has improved significantly, patient had thoracentesis yesterday, she is still maintained on IV antibiotics and her white blood count came down from 28,000-20,000 over the last 2 days, at this time will continue with current management patient can be transferred out of ICU today, hopefully she will be transferred to rehab over the next few days. Objective - Vital Signs Vital signs: Vital Signs Temp 98.3 F 10/17/22 08:00 Pulse 92 10/17/22 10:00 Resp 24 10/17/22 10:00 BP 158/78 10/17/22 10:00 Pulse Ox 93 L 10/17/22 10:00 FiO2 100 10/16/22 10:20 Intake & Output 10/16/22 10/17/22 10/17/22 18:59 06:59 18:59 Intake Total 1375 1375 625 Output Total 1660 385 270 Balance -285 990 355 Weight 67.1 kg 68.7 kg Intake: IV 1375 1375 625 Linezolid 600 mg In 300 300 300 Dextrose/Water 1 300ml. bag @ 150 mls/hr IVPB Q12HR [facility] Rx#:[id number] Piperacillin-Tazobactam 3 75 100 100 .375 gm In Sodium Chloride 0.9% 100 ml @ 25 mls/hr IVPB Q8HR [facility] Rx# :[id number] Potassium Chloride 10 meq 400 In Water For Injection 1 100ml.bag @ 100 mls/hr IVPB Q1HR [facility] Rx#: [id number] Sodium Chloride 0.9% 1, 600 975 225 000 ml @ 75 mls/hr IV . [id number] [facility] Rx#:[id number] Output: Urine 360 385 270 Other 1300 Other: Voiding Method Indwelling Catheter Indwelling Catheter Indwelling Catheter - Exam In general patient is alert and oriented, able to communicate by writing on board in no apparent distress HEENT head normocephalic and atraumatic Neck is supple no JVD no goiter no lymphadenopathy no carotid bruit Chest examination is clear to auscultation no crackles no wheezing Cardiac exam reveals regular heart sounds S1 and S2 no gallops no murmurs Abdomen is soft nontender no organomegaly with normal bowel sounds Extremity exam reveals no edema no cyanosis or clubbing Neurological examination reveals complete expressive aphasia, and right facial drooping otherwise no focal deficit - Labs CBC & Chem 7: 10/17/22 03:27 10/17/22 03:27 Labs: Abnormal Lab Results - Last 24 Hours (Table) 10/14/22 10/17/22 10/17/22 Range/Units 10:44 03:27 03:27 WBC 20.0 H (3.8-10.6) k/uL Plt Count 81 L (150-450) k/uL Neutrophils # 18.0 H (1.3-7.7) k/uL Lymphocytes # 0.8 L (1.0-4.8) k/uL von Willebrand Antigen 488 H (52-214) % Potassium 3.3 L (3.5-5.1) mmol/L Chloride 110 H (98-107) mmol/L BUN 21 H (7-17) mg/dL Glucose 103 H (74-99) mg/dL AST 51 H (14-36) U/L Alkaline Phosphatase 192 H (38-126) U/L Total Protein 5.1 L (6.3-8.2) g/dL Albumin 2.6 L (3.5-5.0) g/dL Assessment and Plan Plan: Expressive aphasia and right facial droop secondary to ischemic stroke Reoccurring ischemic stroke with right arm paralysis Leukocytosis. Chest x-ray, urinary analysis blood culture ordered consult infectious disease Increased shortness of breath. Stat chest x-ray order pulmonary services reconsulted Underlying history of lung cancer Underlying history of breast cancer Previous history of DVT 3 weeks ago, maintained on Xarelto Underlying history of left pleural effusion History of atrial fibrillation At this time patient was seen and examined in the emergency room Home medications reviewed and reordered Cardiology, pulmonary and neurology service is following JESUS completed on 10/10/2022 Will follow closely
--- NOTE | 2022-10-17 12:37 | P.PN ---
Subjective Progress Note Date: 10/17/22 I am following-up with patient and she was been followed-up by Dr. Appiah for the past two days. Per nurse no change in her neurological condition. Per ICU team, they are going to pursue thoracentesis and in mean time will hold anticoagulation for that. Objective - Vital Signs Vital signs: Vital Signs Temp 98.3 F 10/17/22 08:00 Pulse 92 10/17/22 10:00 Resp 24 10/17/22 10:00 BP 158/78 10/17/22 10:00 Pulse Ox 93 L 10/17/22 10:00 FiO2 100 10/16/22 10:20 Intake & Output 10/16/22 10/17/22 10/17/22 18:59 06:59 18:59 Intake Total 1375 1375 625 Output Total 1660 385 270 Balance -285 990 355 Weight 67.1 kg 68.7 kg Intake: IV 1375 1375 625 Linezolid 600 mg In 300 300 300 Dextrose/Water 1 300ml. bag @ 150 mls/hr IVPB Q12HR [facility] Rx#:[id number] Piperacillin-Tazobactam 3 75 100 100 .375 gm In Sodium Chloride 0.9% 100 ml @ 25 mls/hr IVPB Q8HR [facility] Rx# :[id number] Potassium Chloride 10 meq 400 In Water For Injection 1 100ml.bag @ 100 mls/hr IVPB Q1HR [facility] Rx#: [id number] Sodium Chloride 0.9% 1, 600 975 225 000 ml @ 75 mls/hr IV . [id number] [facility] Rx#:[id number] Output: Urine 360 385 270 Other 1300 Other: Voiding Method Indwelling Catheter Indwelling Catheter Indwelling Catheter - Exam Sitting up in chair. Neuro: Patient is awake alert. She has expressive aphasia predominately. She'll follow few simple commands but not consistent (such as thumbs up, sticking out her tongue and wiggling her toes). Cranial nerve: Visual patel assessment is hard to assess because of her cooperation. EOM she's tracking throughout the room. Patient has right lower facial droop that's moderate in severity. Patient is mute. Motor: The strength is right upper extremity is plegic while right lower is 4+ to 5-. Otherwise left is 5/5 throughout. Decrease tone over the right upper. Some of the workup during his hospital visit consisted of: Lipid panel triglycerides 79, cholesterol is 204, LDLs 128, HDL 59. CT head is reported as no acute intracranial process. I personally reviewed that a CT and there is no acute or subacute ischemia seen. There is no mass affect. CT angiography of the head and neck was reported as no evidence of dissection of the cervical internal carotid arteries or vertebral artery or any evidence of significant stenosis at the carotid bifurcation. No evidence of intracranial high-grade stenosis or intracranial aneurysm. Intracranial atherosclerosis of the internal carotid artery without hemodynamic stenosis. Right and increased size of left pleural effusion. There is a pleural sign in the left which could represent empyema. Persistent that scattered nodular opacity likely representing metastatic disease from the patient known malignancy. EKG is reported as sinus rhythm. Low QRS voltage [facility] Drug screen is negative. MRI brain is reported as scattered foci of restricted diffusion compatible with acute/subacute CVA. Given multiple vascular distribution correlate for embolic phenomena. No abnormal postcontrast enhancement the, no evidence for mass. Nonspecific white matter changes likely secondary to chronic small vessel ischemic disease. I personally reviewed the MRI and I agree with the report. Patient has restriction diffusion over bilateral frontal left more than the right with right parietal occipital region The echo was reported as suboptimal acoustic windows. Contrast echo study performed. Borderline normal left ventricle systolic function septal bulge. There is septal and inferior basal hypokinesis. Routine EEG is normal. There is no focal slowing, epileptiform discharges or seizure on the EEG. Venous duplex of the upper and lower extremities negative ESR 24 (normal is 0.-20), GOLDEN neg, anticardiolipin negat, Prothormbin [id number] is neg, Factor V leiden negate, antithromb III ag neg, Protein C/S ag are normal. Lupus anticoagulant is present. - Labs CBC & Chem 7: 10/17/22 03:27 10/17/22 11:55 Labs: Abnormal Lab Results - Last 24 Hours (Table) 10/14/22 10/17/22 10/17/22 Range/Units 10:44 03:27 03:27 WBC 20.0 H (3.8-10.6) k/uL Plt Count 81 L (150-450) k/uL Neutrophils # 18.0 H (1.3-7.7) k/uL Lymphocytes # 0.8 L (1.0-4.8) k/uL von Willebrand Antigen 488 H (52-214) % Potassium 3.3 L (3.5-5.1) mmol/L Chloride 110 H (98-107) mmol/L BUN 21 H (7-17) mg/dL Glucose 103 H (74-99) mg/dL AST 51 H (14-36) U/L Alkaline Phosphatase 192 H (38-126) U/L Total Protein 5.1 L (6.3-8.2) g/dL Albumin 2.6 L (3.5-5.0) g/dL Assessment and Plan Assessment: This is a 72-year-old woman who had the expressive aphasia and right facial weakness since 09/30/2022. Initially she presented to our facility yesterday and her symptoms has improved except some subtle right lower facial weakness but today as she presented again with expressive aphasia, dysarthria with right facial weakness Recurrent ischemic strokes. Patient apparently had a new stroke with new right arm paresis. Her right facial droop and aphasia also seems to have gotten worse. Acute ischemic stroke (over bilateral hemisphere: bilateral frontal L>R, right parietal and occipital region). Stroke appears embolic in nature: Probable embolic. Patient has failed Xarelto, now Pradaxa as well. JESUS is negative. Bilateral pleural effusion. Leukocytosis that is trending up without any fever and I.D. feels questionable aspiration pneumonia. History of left lung cancer History of right breast cancer History of recent DVT about 3 weeks ago and was on Xarelto Left Pleural effusion on CTA History of pleural effusion History of atrial fibrillation and in past was on anticoagulation then stopped then after DVT 3 weeks ago restarted it Plan: Patient had recurrent ischemic strokes. CTA of head and neck showed no significant change from recent CTA study. No LVO. Patient has failed Xarelto, and now also Pradaxa. Patient is also on Plavix. Patient now started on Eliquis. This has been held because of need for thoracentesis for pleural effusion. JESUS performed 10/10/2022 revealed normal appearance left atrial appendage. Normal left ventricular size and systolic function. No shunting across the intra-atrial septum. Mild mitral and tricuspid regurgitation. Aortic valve sclerosis without stenosis. Continue Lipitor 40 mg daily at bedtime second stroke prophylaxis Routine EEG normal. Cardiac monitoring, with telemetry showing sinus rhythm at this time. PT OT and FIRE MANAGEMENT OFFICER are consulted Cardiology is on board. Pulmonary team is consulted for pleural effusion and history of lung cancer We'll defer the rest of the medical management to primary team For DVT prophylaxis: Eliquis to be resumed when medically cleared. The plan is discussed with ICU N.P. and her patient's nurse. Dr. Appiah will resume service this Wednesday A.M. Time with Patient: Less than 30
--- NOTE | 2022-10-17 12:41 | P.PN ---
Subjective Progress Note Date: 10/17/22 Principal diagnosis: Acute CVA and pleural effusions 72-year-old female with a history of breast cancer, presents to the emergency department on October 01, complaining of strokelike symptoms. The patient apparently had a slight right-sided facial droop, and was unable to speak. The patient was admitted to the hospital, and we are asked to see her for her chronic left-sided effusion. The patient has had a thoracentesis in the past, which I believe was done at [facility]. Currently, the patient's on room air, and not receiving any IV fluids. The speech pathologist was in room with her. We saw her in 378. Her medical history includes rest cancer, hypertension, myocardial infarction, osteoarthritis, and apparently the patient is a lifelong nonsmoker. She has had a catheterization with stent placement in her right coronary artery. She appears in no distress. CBC is completely normal. PT 12.3 with an INR 1.2. PTT is 31.6. Electrolytes are normal including sodium, potassium, chloride, carbon dioxide, anion gap, BUN, and creatinine. Glucose 104. The rest of the comprehensive metabolic profile is essentially normal. Urine is negative. Drug screen was negative. Chest x-ray shows a moderate left-sided effusion, and a small right-sided effusion. Brain CT was negative. Angiography, CT, showed no evidence of high-grade stenosis. Brain MRI showed scattered foci of restricted diffusion compatible with acute subacute LINDA. There were multiple vascular distributions. No evidence for mass. I am seeing this patient in follow-up today 10/15/2022, the patient had been admitted back on October 01, mainly for CVA-like symptoms. Pulmonary had signed off the case, and we were re-consulted yesterday for increased oxygen demands. The patient is a 72-year-old female with past medical history significant for right breast ductal carcinoma and metastatic non-small cell lung cancer which she was undergoing treatment for these on an outpatient basis. Patient also has history of recurrent left-sided pleural effusion, hypertension, coronary artery disease with prior stent to the RCA, DVT. Earlier this morning, the patient did develop some respiratory distress and tachycardia. The patient was reportedly in SVT, and started on a Cardizem infusion, which is currently infusing at 10 mg per hour. On my evaluation, the patient is currently sitting in bed, on a 15 L nonrebreather, fairly comfortable. She does not communicate. A chest CT without contrast was done yesterday afternoon showed an new moderate size right pleural effusion and right upper lobe edema and/or acute infiltrate. There was also a stable left-sided pleural effusion, diffuse left lung opacities which could reflect fibrosis, edema or possibly posttreatment changes, and a unchanged 2.5 cm left mid lung mass or neoplasm. Most recent CBC from yesterday shows increasing leukocytosis with a WBC count of 26.4, hemoglobin 14.7, hematocrit 46, platelets 194. She has been afebrile. Empirically covered on Zosyn. Pro calcitonin level was low at 0.02. BMP from yesterday shows a sodium 146, potassium 4, chloride 109, serum CO2 28, BUN 22, creatinine 0.56, glucose 123. Normal saline is currently infusing at KVO. Patient will likely need thoracentesis. Patient was reevaluated today on 10/16/2022, I was notified about this patient yesterday that she was having worsening shortness of breath, hence I recommended that the patient goes on BiPAP, and transferred to ICU. I saw this patient today, she has been off anticoagulation therapy for the last 2 days, hence I would proceed with thoracentesis on the right side. Indeed I did do a thoracentesis and I was able to remove 1500 mL of slightly serosanguineous fluid from the right pleural space. Patient felt much better and the chest x-ray showed significant improvement nonetheless the patient continues to have sig nificant airspace disease possibly pneumonia on the left side, and possibly some small pleural effusions. This was not large enough on ultrasound to consider left-sided thoracentesis. Patient remains on multiple medications, remains on Ventimask, overall status is marginal. Remains on antibiotics, continues to have leukocytosis. Blood cultures remain negative since 10/11 Significant airspace disease and opacities noted throughout the left lung. Reevaluated today on 10/17/2022, remains in the ICU, on 5 L nasal cannula, pulmonary status is much better today compared to yesterday prior to thor acentesis. Patient is requiring less FiO2, she is not in any distress, back on her anticoagulation treatment, WBC count today is 20 hemoglobin 12.7 and let us are normal renal profile is normal the effusion which I drained yesterday seems to be exudative in nature very high protein and very high LDH, could be parapneumonic or could be malignant. Cytology is pending. Will recommend transferring the patient out of the ICU to a cardiac floor. Objective - Vital Signs Vital signs: Vital Signs Temp 98.3 F 10/17/22 08:00 Pulse 92 10/17/22 10:00 Resp 24 10/17/22 10:00 BP 158/78 10/17/22 10:00 Pulse Ox 93 L 10/17/22 10:00 FiO2 100 10/16/22 10:20 Intake & Output 10/16/22 10/17/22 10/17/22 18:59 06:59 18:59 Intake Total 1375 1375 625 Output Total 1660 385 270 Balance -285 990 355 Weight 67.1 kg 68.7 kg Intake: IV 1375 1375 625 Linezolid 600 mg In 300 300 300 Dextrose/Water 1 300ml. bag @ 150 mls/hr IVPB Q12HR [facility] Rx#:[id number] Piperacillin-Tazobactam 3 75 100 100 .375 gm In Sodium Chloride 0.9% 100 ml @ 25 mls/hr IVPB Q8HR [facility] Rx# :[id number] Potassium Chloride 10 meq 400 In Water For Injection 1 100ml.bag @ 100 mls/hr IVPB Q1HR [facility] Rx#: [id number] Sodium Chloride 0.9% 1, 600 975 225 000 ml @ 75 mls/hr IV . [id number] [facility] Rx#:[id number] Output: Urine 360 385 270 Other 1300 Other: Voiding Method Indwelling Catheter Indwelling Catheter Indwelling Catheter - Exam GENERAL EXAM: 72-year-old female on 5 L nasal cannula, not in distress. HEAD: Normocephalic and atraumatic EYES: Normal reaction of pupils, equal size. NOSE: Clear with pink turbinates. THROAT: No erythema or exudates. NECK: No masses, no JVD. CHEST: No chest wall deformity. LUNGS: Diminished breaths on bilaterally no crackles or rhonchi or wheezes. CVS: Irregular rhythm, normal S1 and S2, no S3 gallop. ABDOMEN: No hepatosplenomegaly, active bowel sounds, no guarding or rigidity. SKIN: No rashes CENTRAL NERVOUS SYSTEM: Patient seems to be a bit confused, nonverbal. Follows simple instructions EXTREMITIES: There is no peripheral edema, clubbing, or cyanosis. Peripheral pulses are intact. - Labs CBC & Chem 7: 10/17/22 03:27 10/17/22 11:55 Labs: Abnormal Lab Results - Last 24 Hours (Table) 10/14/22 10/17/22 10/17/22 Range/Units 10:44 03:27 03:27 WBC 20.0 H (3.8-10.6) k/uL Plt Count 81 L (150-450) k/uL Neutrophils # 18.0 H (1.3-7.7) k/uL Lymphocytes # 0.8 L (1.0-4.8) k/uL von Willebrand Antigen 488 H (52-214) % Potassium 3.3 L (3.5-5.1) mmol/L Chloride 110 H (98-107) mmol/L BUN 21 H (7-17) mg/dL Glucose 103 H (74-99) mg/dL AST 51 H (14-36) U/L Alkaline Phosphatase 192 H (38-126) U/L Total Protein 5.1 L (6.3-8.2) g/dL Albumin 2.6 L (3.5-5.0) g/dL Assessment and Plan Assessment: Impression: Acute CVA with multiple embolic phenomenon and right hemiparesis as well as expressive aphasia Bilateral pleural effusions felt to be cardiac in nature unless for otherwise although the possibility of parapneumonic effusion is not entirely ruled out. Status post thoracentesis on the right side , and 1500 mL of fluid removedFluid is exudative in nature, cytology is pending, cultures are pending. , History of lung cancer History of breast cancer Chronic atrial fibrillation Expressive aphasia secondary to CVA Possible aspiration pneumonia based on findings on the chest x-ray especially on the left side. Leukocytosis secondary to above. History of stable coronary artery disease Benign essential hypertension Recent history of deep vein thrombosis Recommendation: transfer to a monitor bed on . Continue oxygen at 5 L/m. Follow-up chest x-ray in a.m. Continue present supportive care measures Continue antibiotics Consider discussing CODE STATUS and changing CODE STATUS to DO NOT RESUSCITATE CODE STATUS of the patient seems to be quite ill, and she has very poor pro gnosis We will continue to follow Will transfer back to the cardiac floor today Time with Patient: Less than 30
[2022-10-17] MEDS: CALCIUM CARBONATE 500 MG CHEWABLE PO PRN (12:53)
[2022-10-17] MEDS: ACETAMINOPHEN TAB 325 MG TAB PO PRN (15:41)
[2022-10-17] MEDS ORDERED: POTASSIUM BICARBONATE/CIT AC 20 MEQ TABLET.EFF NG-TUBE SCH (17:00)
[2022-10-17] MEDS: ATORVASTATIN 40 MG TAB PO SCH (20:41)
[2022-10-18] MEDS: ACETAMINOPHEN TAB 325 MG TAB PO PRN (04:12)
[2022-10-18] MEDS: carvediloL 3.125 MG TAB PO SCH ×2 (06:13→17:03)
[2022-10-18] MEDS: APIXABAN 5 MG TAB PO SCH ×2 (08:45→19:52)
[2022-10-18] MEDS: LACTULOSE 20 GM/30 ML CUP PO SCH ×6 (08:46→20:51)
[2022-10-18] MEDS: CLOPIDOGREL 75 MG TAB PO SCH (08:46)
[2022-10-18] MEDS: lisinopriL 5 MG TAB PO SCH ×2 (08:46→19:52)
[2022-10-18] MEDS: OSIMERTINIB 80 MG PO SCH (08:46)
[2022-10-18] MEDS: FLUCONAZOLE 100 MG TAB PO SCH (08:46)
[2022-10-18] MEDS: DOCUSATE 100 MG CAP PO SCH ×2 (08:46→19:52)
[2022-10-18] MEDS: PANTOPRAZOLE 40 MG/10 ML VIAL IVP SCH (08:46)
[2022-10-18] MEDS: PIPERACILLIN-TAZOBACTAM 3.375 GM in SODIUM CHLORIDE 0.9% 100 ML IVPB SCH ×3 (08:56→23:15)
[2022-10-18] MEDS: SODIUM CHLORIDE 0.9% 1,000 ML IV SCH (08:58)
[2022-10-18] MEDS: LINEZOLID 600 MG in DEXTROSE/WATER 1 300ML.BAG IVPB SCH ×2 (09:35→19:52)
[2022-10-18] MEDS: ANASTROZOLE 1 MG TAB PO SCH (09:36)
--- NOTE | 2022-10-18 10:21 | XR ---
EXAMINATION TYPE: XR chest 1V portable DATE OF EXAM: 10/18/2022 Comparison: 10/16/2022 Clinical History: 72-year-old female Pleural effusion Findings: Heart mildly enlarged. Atherosclerotic arch calcifications. Worsening bilateral airspace disease, valeria ecially on the right now. There may be a slight increase in small right pleural effusion. Ongoing lef t pleural effusion with loculated component at the left upper lung. IMPRESSION: Worsening airspace disease throughout the right lung. Similar airspace disease and pleural effusion o n the left along with loculated component at the left upper lung.
--- NOTE | 2022-10-18 11:35 | P.PN ---
Subjective Progress Note Date: 10/18/22 Principal diagnosis: Acute CVA and pleural effusions 72-year-old female with a history of breast cancer, presents to the emergency department on October 01, complaining of strokelike symptoms. The patient apparently had a slight right-sided facial droop, and was unable to speak. The patient was admitted to the hospital, and we are asked to see her for her chronic left-sided effusion. The patient has had a thoracentesis in the past, which I believe was done at [facility]. Currently, the patient's on room air, and not receiving any IV fluids. The speech pathologist was in room with her. We saw her in 378. Her medical history includes rest cancer, hypertension, myocardial infarction, osteoarthritis, and apparently the patient is a lifelong nonsmoker. She has had a catheterization with stent placement in her right coronary artery. She appears in no distress. CBC is completely normal. PT 12.3 with an INR 1.2. PTT is 31.6. Electrolytes are normal including sodium, potassium, chloride, carbon dioxide, anion gap, BUN, and creatinine. Glucose 104. The rest of the comprehensive metabolic profile is essentially normal. Urine is negative. Drug screen was negative. Chest x-ray shows a moderate left-sided effusion, and a small right-sided effusion. Brain CT was negative. Angiography, CT, showed no evidence of high-grade stenosis. Brain MRI showed scattered foci of restricted diffusion compatible with acute subacute LINDA. There were multiple vascular distributions. No evidence for mass. I am seeing this patient in follow-up today 10/15/2022, the patient had been admitted back on October 01, mainly for CVA-like symptoms. Pulmonary had signed off the case, and we were re-consulted yesterday for increased oxygen demands. The patient is a 72-year-old female with past medical history significant for right breast ductal carcinoma and metastatic non-small cell lung cancer which she was undergoing treatment for these on an outpatient basis. Patient also has history of recurrent left-sided pleural effusion, hypertension, coronary artery disease with prior stent to the RCA, DVT. Earlier this morning, the patient did develop some respiratory distress and tachycardia. The patient was reportedly in SVT, and started on a Cardizem infusion, which is currently infusing at 10 mg per hour. On my evaluation, the patient is currently sitting in bed, on a 15 L nonrebreather, fairly comfortable. She does not communicate. A chest CT without contrast was done yesterday afternoon showed an new moderate size right pleural effusion and right upper lobe edema and/or acute infiltrate. There was also a stable left-sided pleural effusion, diffuse left lung opacities which could reflect fibrosis, edema or possibly posttreatment changes, and a unchanged 2.5 cm left mid lung mass or neoplasm. Most recent CBC from yesterday shows increasing leukocytosis with a WBC count of 26.4, hemoglobin 14.7, hematocrit 46, platelets 194. She has been afebrile. Empirically covered on Zosyn. Pro calcitonin level was low at 0.02. BMP from yesterday shows a sodium 146, potassium 4, chloride 109, serum CO2 28, BUN 22, creatinine 0.56, glucose 123. Normal saline is currently infusing at KVO. Patient will likely need thoracentesis. Patient was reevaluated today on 10/16/2022, I was notified about this patient yesterday that she was having worsening shortness of breath, hence I recommended that the patient goes on BiPAP, and transferred to ICU. I saw this patient today, she has been off anticoagulation therapy for the last 2 days, hence I would proceed with thoracentesis on the right side. Indeed I did do a thoracentesis and I was able to remove 1500 mL of slightly serosanguineous fluid from the right pleural space. Patient felt much better and the chest x-ray showed significant improvement nonetheless the patient continues to have sig nificant airspace disease possibly pneumonia on the left side, and possibly some small pleural effusions. This was not large enough on ultrasound to consider left-sided thoracentesis. Patient remains on multiple medications, remains on Ventimask, overall status is marginal. Remains on antibiotics, continues to have leukocytosis. Blood cultures remain negative since 10/11 Significant airspace disease and opacities noted throughout the left lung. Reevaluated today on 10/17/2022, remains in the ICU, on 5 L nasal cannula, pulmonary status is much better today compared to yesterday prior to thor acentesis. Patient is requiring less FiO2, she is not in any distress, back on her anticoagulation treatment, WBC count today is 20 hemoglobin 12.7 and let us are normal renal profile is normal the effusion which I drained yesterday seems to be exudative in nature very high protein and very high LDH, could be parapneumonic or could be malignant. Cytology is pending. Will recommend transferring the patient out of the ICU to a cardiac floor. Reevaluated on 10/18/2022, patient remains on 5 L nasal cannula, doing well, not in any distress. Chest x-ray is showing worsening of airspace disease in the left lung, and recurrence of right-sided pleural effusion, nonetheless the patient is clinically stable, and reviewed the results of the pleural effusion that was drained on 10/16, it is exudative, with significantly elevated protein and significantly elevated LDH, I suspect the fluid will be malignant unless otherwise. Cytology is pending. Hence no plans to repeat thoracentesis for now until a definitive diagnosis is hopefully made in the next couple of days was cytology is back. Objective - Vital Signs Vital signs: Vital Signs Temp 98.2 F 10/17/22 20:00 Pulse 68 10/18/22 09:59 Resp 18 10/18/22 09:59 BP 126/74 10/18/22 09:58 Pulse Ox 94 L 10/18/22 09:58 FiO2 100 10/16/22 10:20 Intake & Output 10/17/22 10/18/22 10/18/22 18:59 06:59 18:59 Intake Total 1365 540 180 Output Total 450 1300 Balance 915 -760 180 Intake: IV 1025 Linezolid 600 mg In 300 Dextrose/Water 1 300ml. bag @ 150 mls/hr IVPB Q12HR [facility] Rx#:[id number] Piperacillin-Tazobactam 3 200 .375 gm In Sodium Chloride 0.9% 100 ml @ 25 mls/hr IVPB Q8HR [facility] Rx# :[id number] Sodium Chloride 0.9% 1, 525 000 ml @ 75 mls/hr IV . [id number] [facility] Rx#:[id number] Oral 340 540 180 Output: Urine 450 1300 Other: Voiding Method Indwelling Catheter Indwelling Catheter Indwelling Catheter - Exam GENERAL EXAM: 72-year-old female on 5 L nasal cannula, not in distress. HEAD: Normocephalic and atraumatic EYES: Normal reaction of pupils, equal size. NOSE: Clear with pink turbinates. THROAT: No erythema or exudates. NECK: No masses, no JVD. CHEST: No chest wall deformity. LUNGS: Diminished breaths on bilaterally no crackles or rhonchi or wheezes. CVS: Irregular rhythm, normal S1 and S2, no S3 gallop. ABDOMEN: No hepatosplenomegaly, active bowel sounds, no guarding or rigidity. SKIN: No rashes CENTRAL NERVOUS SYSTEM: Patient seems to be a bit confused, nonverbal. Follows simple instructions EXTREMITIES: There is no peripheral edema, clubbing, or cyanosis. Peripheral pulses are intact. - Labs CBC & Chem 7: 10/17/22 03:27 10/17/22 11:55 Labs: Microbiology - Last 24 Hours (Table) 10/16/22 09:45 Gram Stain - Preliminary Pleural Fluid Body Fluid Culture - Preliminary 10/11/22 15:18 Blood Culture - Final Blood 10/11/22 10:17 Blood Culture - Final Blood Assessment and Plan Assessment: Impression: Acute CVA with multiple embolic phenomenon and right hemiparesis as well as expressive aphasia Bilateral pleural effusions felt to be cardiac in nature unless for otherwise although the possibility of parapneumonic effusion is not entirely ruled out. Status post thoracentesis on the right side , and 1500 mL of fluid re movedFluid is exudative in nature, cytology is pending, cultures are pending. , History of lung cancer History of breast cancer Chronic atrial fibrillation Expressive aphasia secondary to CVA Possible aspiration pneumonia based on findings on the chest x-ray especially on the left side. Leukocytosis secondary to above. History of stable coronary artery disease Benign essential hypertension Recent history of deep vein thrombosis Recommendation: Awaiting the results of the cytology from the pleural effusion which was sent on 10/16/2022. Continue oxygen at 5 L/m. Continue present supportive care measures Continue antibiotics Consider discussing CODE STATUS and changing CODE STATUS to DO NOT RESUSCITATE CODE STATUS of the patient seems to be quite ill, and she has very poor prognosis If the pleural effusion proves to be malignant in nature, then I believe CODE STATUS should definitely be addressed with the son and should be made aware of the findings and the prognosis at that point. We will continue to follow Will transfer back to the cardiac floor today Time with Patient: Less than 30
--- NOTE | 2022-10-18 12:15 | P.PN ---
Subjective Progress Note Date: 10/18/22 Kat Kim, is a 72-year-old female who presented to [facility] emergency room with a chief complaint difficulty with her speech, and right facial drooping, patient presented to emergency room with similar complaints yesterday, at that time [facility] however she felt that she was improving and she opted to go home. However over the next several hours patient developed complete aphasia, she was brought back to the emergency room by her family. She was evaluated in the emergency room vital examination on presentation revealed a temperature of 99 pulse 84 respiration 18 blood pressure 160/87 pulse ox 94% on room air Laboratory data revealed a white blood count of 7.1 hemoglobin 14.6 platelet count 167 sodium 137 potassium 4.3 chloride 102 CO2 29 BUN 9 creatinine 0.56 urine analysis revealed no evidence of infection and urine toxicology screen was negative Testing in the emergency room revealed, computed tomography scan of the brain without contrast was done in the emergency room and revealed no acute intracranial process, CT angiogram of the brain done in the emergency room revealed no evidence of dissection of the cervical internal carotid arteries or vertebral arteries or any evidence of significant stenosis at the carotid bifurcation there was no evidence of intracranial high-grade stenosis or intracranial aneurysm Patient was admitted to medical floor for further evaluation and treatment, neurology consultation was requested Past medical history is significant for history of breast cancer, history of stacey ng cancer, history of atrial fibrillation, history of lower extremity DVT, patient was maintained on Xarelto At home On 10/02/2022. Patient is currently resting in room remains with difficulty in speech and right facial drooping. MRI of the brain was completed showing scattered foci of restricted diffusion compatible with acute or subacute CVA given multiple vascular distributions correlate for emboli phenomenon. Neurology services are following. Cardiology services also consulted. Current vital signs temp 98.1, heart rate 74, blood pressure 129/67 pulse ox of 94% on room air On 10/03/2022, patient was seen and examined on telemetry, case was discussed in details with Dr. Amadou López neurologist, patient is developing more difficulty with swallowing, recommendation from neurology is to proceed with JESUS, to rule out cardiac thrombus or PFO. However due to significant difficulty with swallowing, cardiology wanted to wait at this time on JESUS. Recommendation from neurology at this time is to proceed with upper and lower bilateral lower extremity Doppler to rule out acute DVT, and to start anticoagulation starting tomorrow. On 10/04/2022 patient is sitting comfortably in chair. Patient remains nonverbal. Pradaxa has been started per cardiology and neurology recommendations. Current vital signs temp 97.5, heart rate 77, respiratory rate 16, blood pressure 1 5476 with pulse ox 93% on room air. Per cardiology at this time JESUS remains on hold due to difficulty in swallowing. On 10/05/2022 patient was seen and examined on the medical she is alert and oriented 3 in no apparent distress, she is sitting up in a chair, she still has significant facial drooping, she has complete aphasia, she tries to answer questions by nodding her head, she is still having significant difficulty with swallowing, cardiology note reviewed, no plans for JESUS at this time due to difficulty swallowing and the risk of aspiration, she was started on Pradaxa for anticoagulation, she is having difficulty swallowing the pill as it cannot be crushed. At this time will continue with physical therapy, occupational therapy, and speech therapy, will reassess in a.m. On 10/06/2022 patient was seen and examined the medical floor she is alert and oriented in no apparent distress, she is sitting up in a chair she still has complete aphasia, she is having difficulty swallowing, she is complaining of constipation, otherwise she denies any complaints there is no fever or chills no headache or dizziness no chest pain no shortness of breath no cough no nausea or vomiting no abdominal pain no diarrhea and no urinary symptoms. At this time, JESUS will be delayed until patient has better swallowing per cardiology, possibility of rehab admission discussed with patient however she is indicating that she wants to go home, possible discharge to home tomorrow if stable and no further recommendation from cardiology or neurology On 10/07/2022 patient is currently sitting in chair. Patient's son at bedside. Per patient's son patient had a fall this a.m. due to new onset of weakness to her right arm. Patient denies any injuries from fall but does report that the right arm weakness started last night. This is new per son. At this time will do a head CT and discussed with nursing staff to notify neurology services. patient denies chest pain or shortness of breath. Patient denies nausea vomiting or diarrhea. Patient denies any urinary burning or frequency. On 10/08/2022 patient was seen and examined on the telemetry floor she is alert responsive in no apparent distress she is still completely aphasic, she is answering questions by nodding her head, she is still having right sided facial drooping and difficulty swallowing, she also now has complete paralysis of the right upper extremity, neurology are following closely, they recommended JESUS however per their notes patient has refused to complete test. Medication were reviewed will continue with current management will discuss with neurology further treatment steps. On 10/09/2022 patient is currently resting comfortably in bed. Patient have some movement to right extremity no further new neurological symptoms. Patient still having right-sided facial drooping and difficulty swallowing. Patient's son is at bedside per family trying to convince patient to move forward with JESUS. Neurology services are following this time patient denies chest pain or shortness of breath. Patient denies nausea vomiting or diarrhea. Patient denies any urinary burning or frequency On 10/10/2022 patient was seen and examined on the telemetry floor she is alert and oriented 3 in no apparent distress she is still having right facial drooping, complete expressive aphasia, difficulty swallowing, and right upper extremity paralysis, she is scheduled for JESUS today, awaiting further input from neurology and cardiology, possible transfer to rehab on Wednesday if stable and no further recommendation for any testing and intervention. On 10/11/2022 patient is alert and oriented 3 currently sitting up in chair. Patient continues to have right facial drooping complete expressive aphasia, difficulty swallowing and right upper extremity paralysis. No new neurological symptoms noted. Patient did have JESUS completed. White blood cell trending up 15.6 will order chest x-ray urinalysis blood culture and consult infectious dis ease. On 10/12/2022 patient was seen and examined on the telemetry floor she is alert and oriented in no apparent distress, she is still having right sided facial drooping, complete expressive aphasia, and difficulty swallowing, she is also having severe paralysis of the right upper extremity. I have discussed her case in details with Dr. Rondon and with Dr. Dye on neurology, patient failed on Xarelto and had a stroke while she was taking Xarelto, recommendation by cardiology was to switch to Pradaxa, which was done a few days ago, however patient was not able to swallow Pradaxa pills, and it's not recommended that those pills are crushed, so cardiology switched her back to Xarelto, however upon discussion today with neurology Dr. mAadou Dye, he recommended to switch to Eliquis. At this time will discontinue Xarelto today and start with Eliquis in a.m. tomorrow. Patient also has elevated white blood count possibly related to aspiration even though chest x-ray is not revealing evidence of pneumonia, patient is followed by infectious disease she is maintained on IV antibiotic, wi ll continue to follow closely. There is a bed available for patient in [facility] rehab unit, however due to elevated white blood count and use of IV antibiotics, she is not stable enough yet for transfer. Will follow in a.m.. Prognosis is guarded. On 10/13/2022 patient was seen and examined on the telemetry floor she is alert responsive in no apparent distress, clinically there is no significant change in her condition since yesterday, her white blood count is increasing up to 24.2 from 16.[address] Berg is following antibiotic were changed today to Zosyn, vital exam reveals a temperature of 97.8 pulse 56 respiration 18 blood pressure 140/73 pulse ox 91% on room air. No new recommendation from neurology or cardiology, will continue to follow closely, prognosis is guarded On 10/14/2022 patient is alert responsive sitting in bed patient does appear to have increased shortness of breath requiring increased oxygen at 5 L. This time a ordered stat chest x-ray and consult pulmonary services. Patient is on antibiotics of IV Zosyn. Infectious disease services are following. Patient denies chest pain. Patient denies nausea vomiting or diarrhea. 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 Patient is not appropriate to discharge to rehab at this point will continue to follow closely. On 10/16/2022 patient was seen and examined in the ICU, over night patient developed worsening shortness of breath, she was transferred from the telemetry floor to the ICU and was started on BiPAP, pulmonary is following, and are planning for thoracentesis this morning, otherwise no change in condition since yesterday, prognosis remains guarded, pulmonary cardiology infectious disease and neurology are following. On 10/17/2022 patient was seen and examined in the ICU, she is alert responsive in no apparent distress, she is still nonverbal, she has right sided facial drooping, aphasia, and the right upper extremity paralysis, her shortness of breath has improved significantly, patient had thoracentesis yesterday, she is still maintained on IV antibiotics and her white blood count came down from 28,000-20,000 over the last 2 days, at this time will continue with current management patient can be transferred out of ICU today, hopefully she will be transferred to rehab over the next few days. On 10/18/2022 patient was seen and examined on the telemetry floor she is alert responsive in no apparent distress, she still has complete aphasia, right sided facial drooping, and right upper extremity paralysis, she is able to communicate by answering questions yes and no, she denies any pain or discomfort at this time, there is no evidence of shortness of breath at rest, chest x-ray reviewed and reveals worsening airspace disease throughout the right lung and similar airspace disease and pleural effusion on the left, no plans for repeat thoracentesis at this time per pulmonary. Labs today are still pending, white blood count was down to 20,000 yesterday patient is maintained on IV Zosyn and IV linezolid, infectious disease following, clinically patient is improving gradually, prognosis remains guarded, plan is to transfer to [facility] rehab when stable. Objective - Vital Signs Vital signs: Vital Signs Temp 98.2 F 10/17/22 20:00 Pulse 68 10/18/22 09:59 Resp 18 10/18/22 09:59 BP 126/74 10/18/22 09:58 Pulse Ox 94 L 10/18/22 09:58 FiO2 100 10/16/22 10:20 Intake & Output 10/17/22 10/18/22 10/18/22 18:59 06:59 18:59 Intake Total 1365 540 180 Output Total 450 1300 Balance 915 -760 180 Intake: IV 1025 Linezolid 600 mg In 300 Dextrose/Water 1 300ml. bag @ 150 mls/hr IVPB Q12HR [facility] Rx#:[id number] Piperacillin-Tazobactam 3 200 .375 gm In Sodium Chloride 0.9% 100 ml @ 25 mls/hr IVPB Q8HR [facility] Rx# :[id number] Sodium Chloride 0.9% 1, 525 000 ml @ 75 mls/hr IV . [id number] [facility] Rx#:[id number] Oral 340 540 180 Output: Urine 450 1300 Other: Voiding Method Indwelling Catheter Indwelling Catheter Indwelling Catheter - Exam In general patient is alert and oriented, able to communicate by writing on board in no apparent distress HEENT head normocephalic and atraumatic Neck is supple no JVD no goiter no lymphadenopathy no carotid bruit Chest examination is clear to auscultation no crackles no wheezing Cardiac exam reveals regular heart sounds S1 and S2 no gallops no murmurs Abdomen is soft nontender no organomegaly with normal bowel sounds Extremity exam reveals no edema no cyanosis or clubbing Neurological examination reveals complete expressive aphasia, and right facial drooping otherwise no focal deficit - Labs CBC & Chem 7: 10/17/22 03:27 10/17/22 11:55 Labs: Microbiology - Last 24 Hours (Table) 10/16/22 09:45 Gram Stain - Preliminary Pleural Fluid Body Fluid Culture - Preliminary 10/11/22 15:18 Blood Culture - Final Blood 10/11/22 10:17 Blood Culture - Final Blood Assessment and Plan Plan: Expressive aphasia and right facial droop secondary to ischemic stroke Reoccurring ischemic stroke with right arm paralysis Leukocytosis. Chest x-ray, urinary analysis blood culture ordered consult infectious disease Increased shortness of breath. Stat chest x-ray order pulmonary services reconsulted Underlying history of lung cancer Underlying history of breast cancer Previous history of DVT 3 weeks ago, maintained on Xarelto Underlying history of left pleural effusion History of atrial fibrillation At this time patient was seen and examined in the emergency room Home medications reviewed and reordered Cardiology, pulmonary and neurology service is following JESUS completed on 10/10/2022 Will follow closely
[2022-10-18] MEDS: CALCIUM CARBONATE 500 MG CHEWABLE PO PRN (15:13)
[2022-10-18 16:07] LABS: Basophils % (A) 0 %; Eosinophils # (A) 0.1 k/uL (0-0.7); Eosinophils % (A) 0 %; HCT 41.8 % (34.0-46.0); HGB 13.2 gm/dL (11.4-16.0); Lymphocytes # (A) 0.8 k/uL (1.0-4.8); Lymphocytes % (A) 3 %; MCH 29.4 pg (25.0-35.0); MCHC 31.7 g/dL (31.0-37.0); MCV 92.8 fL (80.0-100.0); Mean Platelet Volume 10.5; Monocytes # (A) 1.1 k/uL (0-1.0); Monocytes % (A) 5 %; Neutrophils # (A) 21.5 k/uL (1.3-7.7); Neutrophils % (A) 91 %; RBC 4.51 m/uL (3.80-5.40); RDW 13.9 % (11.5-15.5); WBC 23.6 k/uL (3.8-10.6)
[2022-10-18 16:28] LABS: Platelet Count 74 k/uL (150-450)
[2022-10-18] MEDS: ALPRAZolam 0.25 MG TAB PO PRN (18:28)
[2022-10-18] MEDS: ATORVASTATIN 40 MG TAB PO SCH (19:52)
[2022-10-19] MEDS: carvediloL 3.125 MG TAB PO SCH ×2 (06:18→16:44)
[2022-10-19] MEDS: SODIUM CHLORIDE 0.9% 1,000 ML IV SCH ×4 (06:23→21:57)
[2022-10-19] MEDS: PIPERACILLIN-TAZOBACTAM 3.375 GM in SODIUM CHLORIDE 0.9% 100 ML IVPB SCH ×2 (08:22→15:26)
[2022-10-19] MEDS: PANTOPRAZOLE 40 MG/10 ML VIAL IVP SCH (08:22)
[2022-10-19] MEDS: LINEZOLID 600 MG in DEXTROSE/WATER 1 300ML.BAG IVPB SCH ×2 (08:22→21:55)
[2022-10-19] MEDS: APIXABAN 5 MG TAB PO SCH ×2 (08:23→21:54)
[2022-10-19] MEDS: lisinopriL 5 MG TAB PO SCH ×2 (08:23→21:55)
[2022-10-19] MEDS: CLOPIDOGREL 75 MG TAB PO SCH (08:23)
[2022-10-19] MEDS: OSIMERTINIB 80 MG PO SCH (08:23)
[2022-10-19] MEDS: DOCUSATE 100 MG CAP PO SCH ×2 (08:23→21:57)
[2022-10-19] MEDS: ANASTROZOLE 1 MG TAB PO SCH (08:23)
[2022-10-19] MEDS: FLUCONAZOLE 100 MG TAB PO SCH (08:23)
[2022-10-19] MEDS: LACTULOSE 20 GM/30 ML CUP PO SCH ×4 (08:36→21:55)
[2022-10-19 09:30] LABS: Basophils % (A) 0 %; Eosinophils # (A) 0.1 k/uL (0-0.7); Eosinophils % (A) 1 %; HCT 41.1 % (34.0-46.0); HGB 13.3 gm/dL (11.4-16.0); Lymphocytes # (A) 0.8 k/uL (1.0-4.8); Lymphocytes % (A) 4 %; MCH 29.3 pg (25.0-35.0); MCHC 32.4 g/dL (31.0-37.0); MCV 90.5 fL (80.0-100.0); Mean Platelet Volume 10.4; Monocytes # (A) 0.8 k/uL (0-1.0); Monocytes % (A) 4 %; Neutrophils # (A) 19.5 k/uL (1.3-7.7); Neutrophils % (A) 91 %; RBC 4.54 m/uL (3.80-5.40); RDW 13.9 % (11.5-15.5); WBC 21.3 k/uL (3.8-10.6)
[2022-10-19 09:32] LABS: Platelet Count 78 k/uL (150-450)
[2022-10-19 09:56] LABS: ALT 34 U/L (4-34); AST 48 U/L (14-36); African American GFR (CKD) >90 (>60 ml/min/1.73 sqM); Albumin 2.8 g/dL (3.5-5.0); Alkaline Phosphatase 219 U/L (38-126); Anion Gap 5 mmol/L; Blood Urea Nitrogen 10 mg/dL (7-17); Calcium 8.3 mg/dL (8.4-10.2); Carbon Dioxide 33 mmol/L (22-30); Chloride 102 mmol/L (98-107); Glucose 105 mg/dL (74-99); Non-African American GFR(CKD) >90 (>60 ml/min/1.73 sqM); Potassium 3.1 mmol/L (3.5-5.1); Sodium 140 mmol/L (137-145); Total Bilirubin 0.6 mg/dL (0.2-1.3); Total Protein 5.6 g/dL (6.3-8.2)
--- NOTE | 2022-10-19 10:26 | P.PN ---
Subjective Progress Note Date: 10/19/22 Kat Kim, is a 72-year-old female who presented to [facility] emergency room with a chief complaint difficulty with her speech, and right facial drooping, patient presented to emergency room with similar complaints yesterday, at that time she was offered MRI and [facility] however she felt that she was improving and she opted to go home. However over the next several hours patient developed complete aphasia, she was brought back to the emergency room by her family. She was evaluated in the emergency room vital examination on presentation revealed a temperature of 99 pulse 84 respiration 18 blood pressure 160/87 pulse ox 94% on room air Laboratory data revealed a white blood count of 7.1 hemoglobin 14.6 platelet count 167 sodium 137 potassium 4.3 chloride 102 CO2 29 BUN 9 creatinine 0.56 urine analysis revealed no evidence of infection and urine toxicology screen was negative Testing in the emergency room revealed, computed tomography scan of the brain without contrast was done in the emergency room and revealed no acute intracranial process, CT angiogram of the brain done in the emergency room revealed no evidence of dissection of the cervical internal carotid arteries or vertebral arteries or any evidence of significant stenosis at the carotid bifurcation there was no evidence of intracranial high-grade stenosis or intracranial aneurysm Patient was admitted to medical floor for further evaluation and treatment, neurology consultation was requested Past medical history is significant for history of breast cancer, history of stacey ng cancer, history of atrial fibrillation, history of lower extremity DVT, patient was maintained on Xarelto At home On 10/02/2022. Patient is currently resting in room remains with difficulty in speech and right facial drooping. MRI of the brain was completed showing scattered foci of restricted diffusion compatible with acute or subacute CVA given multiple vascular distributions correlate for emboli phenomenon. Neurology services are following. Cardiology services also consulted. Current vital signs temp 98.1, heart rate 74, blood pressure 129/67 pulse ox of 94% on room air On 10/03/2022, patient was seen and examined on telemetry, case was discussed in details with Dr. Amadou López neurologist, patient is developing more difficulty with swallowing, recommendation from neurology is to proceed with JESUS, to rule out cardiac thrombus or PFO. However due to significant difficulty with swallowing, cardiology wanted to wait at this time on JESUS. Recommendation from neurology at this time is to proceed with upper and lower bilateral lower extremity Doppler to rule out acute DVT, and to start anticoagulation starting tomorrow. On 10/04/2022 patient is sitting comfortably in chair. Patient remains nonverbal. Pradaxa has been started per cardiology and neurology recommendations. Current vital signs temp 97.5, heart rate 77, respiratory rate 16, blood pressure 1 5476 with pulse ox 93% on room air. Per cardiology at this time JESUS remains on hold due to difficulty in swallowing. On 10/05/2022 patient was seen and examined on the medical she is alert and oriented 3 in no apparent distress, she is sitting up in a chair, she still has significant facial drooping, she has complete aphasia, she tries to answer questions by nodding her head, she is still having significant difficulty with swallowing, cardiology note reviewed, no plans for JESUS at this time due to difficulty swallowing and the risk of aspiration, she was started on Pradaxa for anticoagulation, she is having difficulty swallowing the pill as it cannot be crushed. At this time will continue with physical therapy, occupational therapy, and speech therapy, will reassess in a.m. On 10/06/2022 patient was seen and examined the medical floor she is alert and oriented in no apparent distress, she is sitting up in a chair she still has complete aphasia, she is having difficulty swallowing, she is complaining of constipation, otherwise she denies any complaints there is no fever or chills no headache or dizziness no chest pain no shortness of breath no cough no nausea or vomiting no abdominal pain no diarrhea and no urinary symptoms. At this time, JESUS will be delayed until patient has better swallowing per cardiology, possibility of rehab admission discussed with patient however she is indicating that she wants to go home, possible discharge to home tomorrow if stable and no further recommendation from cardiology or neurology On 10/07/2022 patient is currently sitting in chair. Patient's son at bedside. Per patient's son patient had a fall this a.m. due to new onset of weakness to her right arm. Patient denies any injuries from fall but does report that the right arm weakness started last night. This is new per son. At this time will do a head CT and discussed with nursing staff to notify neurology services. patient denies chest pain or shortness of breath. Patient denies nausea vomiting or diarrhea. Patient denies any urinary burning or frequency. On 10/08/2022 patient was seen and examined on the telemetry floor she is alert responsive in no apparent distress she is still completely aphasic, she is answering questions by nodding her head, she is still having right sided facial drooping and difficulty swallowing, she also now has complete paralysis of the right upper extremity, neurology are following closely, they recommended JESUS however per their notes patient has refused to complete test. Medication were reviewed will continue with current management will discuss with neurology further treatment steps. On 10/09/2022 patient is currently resting comfortably in bed. Patient have some movement to right extremity no further new neurological symptoms. Patient still having right-sided facial drooping and difficulty swallowing. Patient's son is at bedside per family trying to convince patient to move forward with JESUS. Neurology services are following this time patient denies chest pain or shortness of breath. Patient denies nausea vomiting or diarrhea. Patient denies any urinary burning or frequency On 10/10/2022 patient was seen and examined on the telemetry floor she is alert and oriented 3 in no apparent distress she is still having right facial drooping, complete expressive aphasia, difficulty swallowing, and right upper extremity paralysis, she is scheduled for JESUS today, awaiting further input from neurology and cardiology, possible transfer to rehab on Wednesday if stable and no further recommendation for any testing and intervention. On 10/11/2022 patient is alert and oriented 3 currently sitting up in chair. Patient continues to have right facial drooping complete expressive aphasia, difficulty swallowing and right upper extremity paralysis. No new neurological symptoms noted. Patient did have JESUS completed. White blood cell trending up 15.6 will order chest x-ray urinalysis blood culture and consult infectious dis ease. On 10/12/2022 patient was seen and examined on the telemetry floor she is alert and oriented in no apparent distress, she is still having right sided facial drooping, complete expressive aphasia, and difficulty swallowing, she is also having severe paralysis of the right upper extremity. I have discussed her case in details with Dr. Rondon and with Dr. Dye on neurology, patient failed on Xarelto and had a stroke while she was taking Xarelto, recommendation by cardiology was to switch to Pradaxa, which was done a few days ago, however patient was not able to swallow Pradaxa pills, and it's not recommended that those pills are crushed, so cardiology switched her back to Xarelto, however upon discussion today with neurology Dr. Amadou Dye, he recommended to switch to Eliquis. At this time will discontinue Xarelto today and start with Eliquis in a.m. tomorrow. Patient also has elevated white blood count possibly related to aspiration even though chest x-ray is not revealing evidence of pneumonia, patient is followed by infectious disease she is maintained on IV antibiotic, wi ll continue to follow closely. There is a bed available for patient in [facility] rehab unit, however due to elevated white blood count and use of IV antibiotics, she is not stable enough yet for transfer. Will follow in a.m.. Prognosis is guarded. On 10/13/2022 patient was seen and examined on the telemetry floor she is alert responsive in no apparent distress, clinically there is no significant change in her condition since yesterday, her white blood count is increasing up to 24.2 from 16.[address] Berg is following antibiotic were changed today to Zosyn, vital exam reveals a temperature of 97.8 pulse 56 respiration 18 blood pressure 140/73 pulse ox 91% on room air. No new recommendation from neurology or cardiology, will continue to follow closely, prognosis is guarded On 10/14/2022 patient is alert responsive sitting in bed patient does appear to have increased shortness of breath requiring increased oxygen at 5 L. This time a ordered stat chest x-ray and consult pulmonary services. Patient is on antibiotics of IV Zosyn. Infectious disease services are following. Patient denies chest pain. Patient denies nausea vomiting or diarrhea. She remains on anticoagulation of eliquis and Plavix On 10/15/2022 patient was seen and examined on the medical floor she is alert and responsive in no apparent distress she is still nonverbal she still has complete paralysis of the right upper extremity she still has facial drooping and difficulty swallowing, during hourly manager hours patient had episode of SVT with heart rate 120- 150 cardiology were contacted and she was started on IV Cardizem drip, white blood count continue to increase pulmonary and infectious disease are following currently patient is maintained on Zosyn and Zyvox possibility of thoracentesis is being discussed. Patient is not appropriate to discharge to rehab at this point will continue to follow closely. On 10/16/2022 patient was seen and examined in the ICU, over night patient developed worsening shortness of breath, she was transferred from the telemetry floor to the ICU and was started on BiPAP, pulmonary is following, and are planning for thoracentesis this morning, otherwise no change in condition since yesterday, prognosis remains guarded, pulmonary cardiology infectious disease and neurology are following. On 10/17/2022 patient was seen and examined in the ICU, she is alert responsive in no apparent distress, she is still nonverbal, she has right sided facial drooping, aphasia, and the right upper extremity paralysis, her shortness of breath has improved significantly, patient had thoracentesis yesterday, she is still maintained on IV antibiotics and her white blood count came down from 28,000-20,000 over the last 2 days, at this time will continue with current management patient can be transferred out of ICU today, hopefully she will be transferred to rehab over the next few days. On 10/18/2022 patient was seen and examined on the telemetry floor she is alert responsive in no apparent distress, she still has complete aphasia, right sided facial drooping, and right upper extremity paralysis, she is able to communicate by answering questions yes and no, she denies any pain or discomfort at this time, there is no evidence of shortness of breath at rest, chest x-ray reviewed and reveals worsening airspace disease throughout the right lung and similar airspace disease and pleural effusion on the left, no plans for repeat thoracentesis at this time per pulmonary. Labs today are still pending, white blood count was down to 20,000 yesterday patient is maintained on IV Zosyn and IV linezolid, infectious disease following, clinically patient is improving gradually, prognosis remains guarded, plan is to transfer to [facility] rehab when stable. On 10/19/2022 patient is sitting in chair alert and responsive remains with complete aphasia. Vital signs temp 97, heart rate 96, respiratory rate 20, blood pressure 166/79 potassium low at 3.1 replacement protocol. Patient remains on high flow nasal cannula 5 L. Objective - Vital Signs Vital signs: Vital Signs Temp 97 F L 10/19/22 08:00 Pulse 96 10/19/22 08:00 Resp 20 10/19/22 08:00 BP 166/79 10/19/22 08:00 Pulse Ox 90 L 10/19/22 09:42 FiO2 100 10/16/22 10:20 Intake & Output 10/18/22 10/19/22 10/19/22 18:59 06:59 18:59 Intake Total 200 540 0 Output Total 425 300 850 Balance -225 240 -850 Intake: Oral 200 540 0 Output: Urine 425 300 850 Other: Voiding Method Indwelling Catheter Indwelling Catheter Indwelling Catheter - Exam In general patient is alert and oriented, able to communicate by writing on b oard in no apparent distress HEENT head normocephalic and atraumatic Neck is supple no JVD no goiter no lymphadenopathy no carotid bruit Chest examination is clear to auscultation no crackles no wheezing Cardiac exam reveals regular heart sounds S1 and S2 no gallops no murmurs Abdomen is soft nontender no organomegaly with normal bowel sounds Extremity exam reveals no edema no cyanosis or clubbing Neurological examination reveals complete expressive aphasia, and right facial drooping otherwise no focal deficit - Labs CBC & Chem 7: 10/19/22 08:25 10/19/22 08:25 Labs: Abnormal Lab Results - Last 24 Hours (Table) 10/18/22 10/19/22 10/19/22 Range/Units 15:31 08:25 08:25 WBC 23.6 H 21.3 H (3.8-10.6) k/uL Plt Count 74 L 78 L (150-450) k/uL Neutrophils # 21.5 H 19.5 H (1.3-7.7) k/uL Lymphocytes # 0.8 L 0.8 L (1.0-4.8) k/uL Monocytes # 1.1 H (0-1.0) k/uL Potassium 3.1 L (3.5-5.1) mmol/L Carbon Dioxide 33 H (22-30) mmol/L Glucose 105 H (74-99) mg/dL Calcium 8.3 L (8.4-10.2) mg/dL AST 48 H (14-36) U/L Alkaline Phosphatase 219 H (38-126) U/L Total Protein 5.6 L (6.3-8.2) g/dL Albumin 2.8 L (3.5-5.0) g/dL Microbiology - Last 24 Hours (Table) 10/16/22 09:45 Gram Stain - Preliminary Pleural Fluid Body Fluid Culture - Preliminary Assessment and Plan Plan: Expressive aphasia and right facial droop secondary to ischemic stroke Reoccurring ischemic stroke with right arm paralysis Bilateral pleural effusions status post thoracentesis on 10/16/2022 cytology pending Leukocytosis secondary to possible aspiration pneumonia. Chest x-ray, urinary analysis blood culture ordered consult infectious disease Underlying history of lung cancer Underlying history of breast cancer Previous history of DVT 3 weeks ago, maintained on Xarelto Underlying history of left pleural effusion History of atrial fibrillation At this time patient was seen and examined in the emergency room Home medications reviewed and reordered Cardiology, pulmonary and neurology service is following JESUS completed on 10/10/2022 Will follow closely
[2022-10-19] MEDS: POTASSIUM CHLORIDE ER 20 MEQ TAB.ER PO SCH ×2 (11:09→12:11)
--- NOTE | 2022-10-19 15:54 | XR ---
EXAMINATION TYPE: XR abdomen 1V DATE OF EXAM: 10/19/2022 COMPARISON: NONE HISTORY: Pain TECHNIQUE: One view abdominal series FINDINGS: The osseous structures are intact. The bowel gas pattern is nonspecific. There are dilated small and large bowel loops in the abdomen with extensive retained fecal debris in the rectum. Arthropathy of the hips and degenerative change of the spine. IMPRESSION: 1. Markedly distended small and large bowel loops. Distal obstruction in the differential diagnosis p ossibly from fecal impaction. Other etiologies not excluded. A Binger level critical message alert has been initiated for Tejinder Taylor MD via the [employer] Critical Results System on 10/19/2022 3:51 PM. This message alert has been sent to Tejinder Taylor MD via the preferences provided by the clinician for the receipt of Radiology Critical Findings. Message ID [id number].
--- NOTE | 2022-10-19 17:00 | P.PN ---
Subjective Progress Note Date: 10/19/22 Principal diagnosis: History of breast cancer, metastatic lung cancer, on treatment for both. Admitted with CVA symptoms In f/u today persistent expressive aphasia, she responds yes and no by nodding her head to questions, her answers are normal. She is denying any difficulty swallowing, reports no appetite but has been drinking water and some supplemental drinks. She thinks her breathing is a little better after thoracentesis. No pain to report this morning. Objective - Vital Signs Vital signs: Vital Signs Temp 97.6 F 10/19/22 16:00 Pulse 94 10/19/22 16:00 Resp 20 10/19/22 16:00 BP 161/89 10/19/22 16:00 Pulse Ox 94 L 10/19/22 16:00 FiO2 100 10/16/22 10:20 Intake & Output 10/18/22 10/19/22 10/19/22 18:59 06:59 18:59 Intake Total 200 540 240 Output Total 281 980 0486 Balance -225 240 -885 Weight 68.7 kg Intake: Oral 200 540 240 Output: Urine 941 176 9461 Other: Voiding Method Indwelling Catheter Indwelling Catheter Indwelling Catheter # Bowel Movements 1 - Constitutional General appearance: Present: average body habitus, cooperative, mild distress - EENT Eyes: Present: anicteric sclerae, EOMI ENT: Present: hearing grossly normal - Respiratory Respiratory: right: diminished, left: rhonchi - Cardiovascular Rhythm: regular Heart sounds: normal: S1, S2 Abnormal Heart Sounds: Absent: systolic murmur, diastolic murmur, rub, S3 Gallop, S4 Gallop, click, other - Peripheral edema leg Peripheral Edema: bilateral: None - Gastrointestinal General gastrointestinal: Present: soft - Musculoskeletal Musculoskeletal: Present: generalized weakness - Psychiatric Psychiatric: Present: A&O x's 3 - Labs CBC & Chem 7: 10/19/22 08:25 10/19/22 08:25 Labs: Abnormal Lab Results - Last 24 Hours (Table) 10/19/22 10/19/22 Range/Units 08:25 08:25 WBC 21.3 H (3.8-10.6) k/uL Plt Count 78 L (150-450) k/uL Neutrophils # 19.5 H (1.3-7.7) k/uL Lymphocytes # 0.8 L (1.0-4.8) k/uL Potassium 3.1 L (3.5-5.1) mmol/L Carbon Dioxide 33 H (22-30) mmol/L Glucose 105 H (74-99) mg/dL Calcium 8.3 L (8.4-10.2) mg/dL AST 48 H (14-36) U/L Alkaline Phosphatase 219 H (38-126) U/L Total Protein 5.6 L (6.3-8.2) g/dL Albumin 2.8 L (3.5-5.0) g/dL Assessment and Plan (1) Cerebrovascular accident (CVA) Current Visit: Yes Status: Acute Priority: High Code(s): I63.9 - CEREBRAL INFARCTION, UNSPECIFIED SNOMED Code(s): 528290650 (2) Cancer of lung Current Visit: Yes Status: Acute Priority: High Code(s): C34.90 - MALIGNANT NEOPLASM OF UNSP PART OF UNSP BRONCHUS OR LUNG SNOMED Code(s): 401654992 (3) History of breast cancer Current Visit: Yes Status: Chronic Priority: High Code(s): Z85.3 - PERSONAL HISTORY OF MALIGNANT NEOPLASM OF BREAST SNOMED Code(s): 407342464 Plan: Recurrent CVA -JESUS neg -Was on xarelto for DVT when she developed CVA. Now on eliquis and plavix. No evidence of bleeding, hemoglobin stable -Antiphospholipid ab work up neg. Patient is okay to continue on eliquis for anticoagulation. Regarding the lupus anticoagulant, being positive while on anticoagulation is not considered a true positive. If it is neg, it is a true negative. It will be rechecked outpatient. Breast cancer -cont arimidex. 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 She is current on f/u and has been doing well -Status post 1300 cc thoracentesis on the left. Cytology pending. -F/U with Medical Onc after rehab
[2022-10-19] MEDS: ATORVASTATIN 40 MG TAB PO SCH (21:55)
[2022-10-19] MEDS ORDERED: DILTIAZEM DRIP BOLUS FROM BAG 1 MG SOLN IV ONE (22:41)
--- NOTE | 2022-10-19 22:46 | P.PN ---
Subjective Progress Note Date: 10/18/22 Principal diagnosis: Leukocytosis Patient is a 72-year-old female with multiple comorbidities has been in the hospital for more than 10 days currently being evaluated and treatment for possible stroke and noticed to have elevated white count. On today's evaluation that is 10/18/2022, patient is afebrile the patient is breathing comfortably currently on 5 L nasal cannula denies any chest pain or worsening cough or sputum production no nausea noted no abdominal pain no diarrhea Objective - Vital Signs Vital signs: Vital Signs Temp 98.2 F 10/17/22 20:00 Pulse 72 10/18/22 11:41 Resp 18 10/18/22 11:41 BP 157/81 10/18/22 11:41 Pulse Ox 95 10/18/22 11:41 FiO2 100 10/16/22 10:20 Intake & Output 10/17/22 10/18/22 10/18/22 18:59 06:59 18:59 Intake Total 1365 540 180 Output Total 450 1300 Balance 915 -760 180 Intake: IV 1025 Linezolid 600 mg In 300 Dextrose/Water 1 300ml. bag @ 150 mls/hr IVPB Q12HR [facility] Rx#:[id number] Piperacillin-Tazobactam 3 200 .375 gm In Sodium Chloride 0.9% 100 ml @ 25 mls/hr IVPB Q8HR [facility] Rx# :[id number] Sodium Chloride 0.9% 1, 525 000 ml @ 75 mls/hr IV . [id number] [facility] Rx#:[id number] Oral 340 540 180 Output: Urine 450 1300 Other: Voiding Method Indwelling Catheter Indwelling Catheter Indwelling Catheter - Exam GENERAL DESCRIPTION: Elderly female up in the chair in no distress RESPIRATORY SYSTEM: Unlabored breathing , decreased breath sounds at bases HEART: S1 S2 regular rate and rhythm ,no loud murmurs ABDOMEN: Soft , no tenderness EXTREMITIES: No edema feet - Labs CBC & Chem 7: 10/19/22 08:25 10/19/22 08:25 Labs: Microbiology - Last 24 Hours (Table) 10/16/22 09:45 Gram Stain - Preliminary Pleural Fluid Body Fluid Culture - Preliminary 10/11/22 15:18 Blood Culture - Final Blood 10/11/22 10:17 Blood Culture - Final Blood Assessment and Plan (1) Leukocytosis Current Visit: Yes Status: Acute Code(s): D72.829 - ELEVATED WHITE BLOOD CELL COUNT, UNSPECIFIED SNOMED Code(s): 320320014 (2) Pneumonia Current Visit: Yes Status: Acute Code(s): J18.9 - PNEUMONIA, UNSPECIFIED ORGANISM SNOMED Code(s): 441775693 Plan: 1patient with elevated white count and this patient admitted to hospital about 10 days ago predominantly for strokelike symptoms and nonverbal MRI was suspicious for possible embolic phenomena and is being evaluated by cardiology pulmonary service since patient did receive 1 dose of steroids on admission but no steroids since then has been complaining of some sores in the mouth and concern for possible thrush/oropharyngeal candidiasis, patient did not have any fever urine has been negative chest x-ray bilateral effusion with left greater than right progressively suspicious disease with question of possible fluid related however the patient also complaining of some cough with sputum production underlying pneumonia less likely but not entirely excluded 2-blood cultures has been negative so far patient did have elevated CRP of 7.0 however did have a normal procalcitonin sputum culture has been requested 3-Patient did have clinical improvement at the patient white count is slightly up today at 23k 4-we will continue the patient on Zosyn and Zyvox and monitor clinical course closely Time with Patient: Less than 30
--- NOTE | 2022-10-19 22:47 | P.PN ---
Subjective Progress Note Date: 10/19/22 Principal diagnosis: Leukocytosis Patient is a 72-year-old female with multiple comorbidities has been in the hospital for more than 10 days currently being evaluated and treatment for possible stroke and noticed to have elevated white count. On today's evaluation that is 10/19/2022, the patient remains to be afebrile patient is currently breathing comfortably on 5 L nasal cannula denies any chest pain or shortness of breath no worsening cough or sputum production no abdominal pain no diarrhea Objective - Vital Signs Vital signs: Vital Signs Temp 98.2 F 10/19/22 11:53 Pulse 89 10/19/22 11:53 Resp 20 10/19/22 11:53 BP 176/84 10/19/22 11:53 Pulse Ox 91 L 10/19/22 11:53 FiO2 100 10/16/22 10:20 Intake & Output 10/18/22 10/19/22 10/19/22 18:59 06:59 18:59 Intake Total 200 540 240 Output Total 234 007 8971 Balance -225 240 -885 Intake: Oral 200 540 240 Output: Urine 159 081 5092 Other: Voiding Method Indwelling Catheter Indwelling Catheter Indwelling Catheter - Exam GENERAL DESCRIPTION: Elderly female up in the chair in no distress RESPIRATORY SYSTEM: Unlabored breathing , decreased breath sounds at bases HEART: S1 S2 regular rate and rhythm ,no loud murmurs ABDOMEN: Soft , no tenderness EXTREMITIES: No edema feet - Labs CBC & Chem 7: 10/19/22 08:25 10/19/22 08:25 Labs: Abnormal Lab Results - Last 24 Hours (Table) 10/18/22 10/19/22 10/19/22 Range/Units 15:31 08:25 08:25 WBC 23.6 H 21.3 H (3.8-10.6) k/uL Plt Count 74 L 78 L (150-450) k/uL Neutrophils # 21.5 H 19.5 H (1.3-7.7) k/uL Lymphocytes # 0.8 L 0.8 L (1.0-4.8) k/uL Monocytes # 1.1 H (0-1.0) k/uL Potassium 3.1 L (3.5-5.1) mmol/L Carbon Dioxide 33 H (22-30) mmol/L Glucose 105 H (74-99) mg/dL Calcium 8.3 L (8.4-10.2) mg/dL AST 48 H (14-36) U/L Alkaline Phosphatase 219 H (38-126) U/L Total Protein 5.6 L (6.3-8.2) g/dL Albumin 2.8 L (3.5-5.0) g/dL Microbiology - Last 24 Hours (Table) 10/16/22 09:45 Gram Stain - Preliminary Pleural Fluid Body Fluid Culture - Preliminary Assessment and Plan (1) Leukocytosis Current Visit: Yes Status: Acute Code(s): D72.829 - ELEVATED WHITE BLOOD CELL COUNT, UNSPECIFIED SNOMED Code(s): 442317325 (2) Pneumonia Current Visit: Yes Status: Acute Code(s): J18.9 - PNEUMONIA, UNSPECIFIED ORGANISM SNOMED Code(s): 263730156 Plan: 1patient with elevated white count and this patient admitted to hospital about 10 days ago predominantly for strokelike symptoms and nonverbal MRI was suspicious for possible embolic phenomena and is being evaluated by cardiology pulmonary service since patient did receive 1 dose of steroids on admission but no steroids since then has been complaining of some sores in the mouth and concern for possible thrush/oropharyngeal candidiasis, patient did not have any fever urine has been negative chest x-ray bilateral effusion with left greater than right progressively suspicious disease with question of possible fluid related however the patient also complaining of some cough with sputum production underlying pneumonia less likely but not entirely excluded 2-blood cultures has been negative so far patient did have elevated CRP of 7.0 however did have a normal procalcitonin sputum culture has been requested 3-Patient did have clinical improvement at the patient white count is down to 21.3K today 4-Pt will continue the patient on Zosyn and Zyvox and aspiration precautions Time with Patient: Less than 30
--- NOTE | 2022-10-19 23:46 | XR ---
EXAM: XR Chest, 1 View CLINICAL HISTORY: ITS.REASON XR Reason: possible aspiration TECHNIQUE: Frontal view of the chest. COMPARISON: No relevant prior studies available. FINDINGS: Lungs: Pulmonary vascular congestion. Moderate LEFT pleural effusion. Cardiomegaly. Findings are consistent with congestive heart failure. Pleural space: No pneumothorax. Heart: Cardiomegaly. Mediastinum: Unremarkable. Bones/joints: Unremarkable. Vasculature: Calcified aorta. IMPRESSION: Pulmonary vascular congestion. Moderate LEFT pleural effusion. Cardiomegaly. Findings are consistent with congestive heart failure.
[2022-10-20] MEDS: PIPERACILLIN-TAZOBACTAM 3.375 GM in SODIUM CHLORIDE 0.9% 100 ML IVPB SCH ×3 (02:04→15:35)
[2022-10-20] MEDS: carvediloL 3.125 MG TAB PO SCH ×2 (06:25→17:11)
[2022-10-20 07:28] LABS: Basophils % (A) 0 %; Eosinophils # (A) 0.1 k/uL (0-0.7); Eosinophils % (A) 0 %; HCT 36.5 % (34.0-46.0); HGB 11.8 gm/dL (11.4-16.0); Lymphocytes # (A) 0.6 k/uL (1.0-4.8); Lymphocytes % (A) 3 %; MCH 29.3 pg (25.0-35.0); MCHC 32.4 g/dL (31.0-37.0); MCV 90.2 fL (80.0-100.0); Mean Platelet Volume 10.4; Monocytes # (A) 0.6 k/uL (0-1.0); Monocytes % (A) 3 %; Neutrophils # (A) 22.3 k/uL (1.3-7.7); Neutrophils % (A) 94 %; RBC 4.04 m/uL (3.80-5.40); RDW 13.8 % (11.5-15.5); WBC 23.7 k/uL (3.8-10.6)
[2022-10-20 07:29] LABS: Platelet Count 68 k/uL (150-450)
[2022-10-20 07:51] LABS: ALT 28 U/L (4-34); AST 34 U/L (14-36); African American GFR (CKD) >90 (>60 ml/min/1.73 sqM); Albumin 2.4 g/dL (3.5-5.0); Alkaline Phosphatase 187 U/L (38-126); Anion Gap 2 mmol/L; Blood Urea Nitrogen 15 mg/dL (7-17); Calcium 8.1 mg/dL (8.4-10.2); Carbon Dioxide 34 mmol/L (22-30); Chloride 103 mmol/L (98-107); Glucose 101 mg/dL (74-99); Non-African American GFR(CKD) 90 (>60 ml/min/1.73 sqM); Potassium 3.3 mmol/L (3.5-5.1); Sodium 139 mmol/L (137-145); Total Bilirubin 0.5 mg/dL (0.2-1.3); Total Protein 4.7 g/dL (6.3-8.2)
[2022-10-20] MEDS: LINEZOLID 600 MG in DEXTROSE/WATER 1 300ML.BAG IVPB SCH ×2 (08:30→21:42)
[2022-10-20] MEDS: PANTOPRAZOLE 40 MG/10 ML VIAL IVP SCH (08:30)
--- NOTE | 2022-10-20 08:46 | XR ---
EXAMINATION TYPE: XR abdomen 1V DATE OF EXAM: 10/20/2022 COMPARISON: 10/19/2022 HISTORY: Follow-up obstruction TECHNIQUE: One view abdominal series FINDINGS: The osseous structures are intact. The bowel gas pattern is nonspecific. There is interval reduction in the degree of distended bowel loops. Hypertrophic and degenerative changes of the spine. Arthropa thy of the hips. Vascular calcifications noted. IMPRESSION: 1. Nonspecific abdomen. Interval reduction in the number and degree of bowel distention that was ju picious for obstruction. Appears to be evacuation of the rectum. Could have been on the basis of feca l impaction. Continued follow-up x-ray clinical correlation is recommended.
[2022-10-20] MEDS: LACTULOSE 20 GM/30 ML CUP PO SCH ×4 (11:25→21:41)
[2022-10-20] MEDS: CLOPIDOGREL 75 MG TAB PO SCH (11:27)
[2022-10-20] MEDS: DOCUSATE 100 MG CAP PO SCH ×2 (11:27→21:42)
[2022-10-20] MEDS: FLUCONAZOLE 100 MG TAB PO SCH (11:27)
[2022-10-20] MEDS: APIXABAN 5 MG TAB PO SCH ×2 (11:27→21:41)
[2022-10-20] MEDS: lisinopriL 5 MG TAB PO SCH ×2 (11:27→21:42)
[2022-10-20] MEDS: OSIMERTINIB 80 MG PO SCH (12:02)
[2022-10-20] MEDS: ANASTROZOLE 1 MG TAB PO SCH (12:03)
[2022-10-20] MEDS: SODIUM CHLORIDE 0.9% 1,000 ML IV SCH ×2 (12:46)
[2022-10-20] MEDS: DILTIAZEM 125 MG in SODIUM CHLORIDE 0.9% 100 ML IV SCH (14:46)
--- NOTE | 2022-10-20 15:19 | P.PN ---
Subjective Progress Note Date: 10/20/22 Kat Kim, is a 72-year-old female who presented to [facility] emergency room with a chief complaint difficulty with her speech, and right facial drooping, patient presented to emergency room with similar complaints yesterday, at that time [facility] however she felt that she was improving and she opted to go home. However over the next several hours patient developed complete aphasia, she was brought back to the emergency room by her family. She was evaluated in the emergency room vital examination on presentation revealed a temperature of 99 pulse 84 respiration 18 blood pressure 160/87 pulse ox 94% on room air Laboratory data revealed a white blood count of 7.1 hemoglobin 14.6 platelet count 167 sodium 137 potassium 4.3 chloride 102 CO2 29 BUN 9 creatinine 0.56 urine analysis revealed no evidence of infection and urine toxicology screen was negative Testing in the emergency room revealed, computed tomography scan of the brain without contrast was done in the emergency room and revealed no acute intracranial process, CT angiogram of the brain done in the emergency room revealed no evidence of dissection of the cervical internal carotid arteries or vertebral arteries or any evidence of significant stenosis at the carotid bifurcation there was no evidence of intracranial high-grade stenosis or intracranial aneurysm Patient was admitted to medical floor for further evaluation and treatment, neurology consultation was requested Past medical history is significant for history of breast cancer, history of stacey ng cancer, history of atrial fibrillation, history of lower extremity DVT, patient was maintained on Xarelto At home On 10/02/2022. Patient is currently resting in room remains with difficulty in speech and right facial drooping. MRI of the brain was completed showing scattered foci of restricted diffusion compatible with acute or subacute CVA given multiple vascular distributions correlate for emboli phenomenon. Neurology services are following. Cardiology services also consulted. Current vital signs temp 98.1, heart rate 74, blood pressure 129/67 pulse ox of 94% on room air On 10/03/2022, patient was seen and examined on telemetry, case was discussed in details with Dr. Amadou López neurologist, patient is developing more difficulty with swallowing, recommendation from neurology is to proceed with JESUS, to rule out cardiac thrombus or PFO. However due to significant difficulty with swallowing, cardiology wanted to wait at this time on JESUS. Recommendation from neurology at this time is to proceed with upper and lower bilateral lower extremity Doppler to rule out acute DVT, and to start anticoagulation starting tomorrow. On 10/04/2022 patient is sitting comfortably in chair. Patient remains nonverbal. Pradaxa has been started per cardiology and neurology recommendations. Current vital signs temp 97.5, heart rate 77, respiratory rate 16, blood pressure 1 5476 with pulse ox 93% on room air. Per cardiology at this time JESUS remains on hold due to difficulty in swallowing. On 10/05/2022 patient was seen and examined on the medical she is alert and oriented 3 in no apparent distress, she is sitting up in a chair, she still has significant facial drooping, she has complete aphasia, she tries to answer questions by nodding her head, she is still having significant difficulty with swallowing, cardiology note reviewed, no plans for JESUS at this time due to difficulty swallowing and the risk of aspiration, she was started on Pradaxa for anticoagulation, she is having difficulty swallowing the pill as it cannot be crushed. At this time will continue with physical therapy, occupational therapy, and speech therapy, will reassess in a.m. On 10/06/2022 patient was seen and examined the medical floor she is alert and oriented in no apparent distress, she is sitting up in a chair she still has complete aphasia, she is having difficulty swallowing, she is complaining of constipation, otherwise she denies any complaints there is no fever or chills no headache or dizziness no chest pain no shortness of breath no cough no nausea or vomiting no abdominal pain no diarrhea and no urinary symptoms. At this time, JESUS will be delayed until patient has better swallowing per cardiology, possibility of rehab admission discussed with patient however she is indicating that she wants to go home, possible discharge to home tomorrow if stable and no further recommendation from cardiology or neurology On 10/07/2022 patient is currently sitting in chair. Patient's son at bedside. Per patient's son patient had a fall this a.m. due to new onset of weakness to her right arm. Patient denies any injuries from fall but does report that the right arm weakness started last night. This is new per son. At this time will do a head CT and discussed with nursing staff to notify neurology services. patient denies chest pain or shortness of breath. Patient denies nausea vomiting or diarrhea. Patient denies any urinary burning or frequency. On 10/08/2022 patient was seen and examined on the telemetry floor she is alert responsive in no apparent distress she is still completely aphasic, she is answering questions by nodding her head, she is still having right sided facial drooping and difficulty swallowing, she also now has complete paralysis of the right upper extremity, neurology are following closely, they recommended JESUS however per their notes patient has refused to complete test. Medication were reviewed will continue with current management will discuss with neurology further treatment steps. On 10/09/2022 patient is currently resting comfortably in bed. Patient have some movement to right extremity no further new neurological symptoms. Patient still having right-sided facial drooping and difficulty swallowing. Patient's son is at bedside per family trying to convince patient to move forward with JESUS. Neurology services are following this time patient denies chest pain or shortness of breath. Patient denies nausea vomiting or diarrhea. Patient denies any urinary burning or frequency On 10/10/2022 patient was seen and examined on the telemetry floor she is alert and oriented 3 in no apparent distress she is still having right facial drooping, complete expressive aphasia, difficulty swallowing, and right upper extremity paralysis, she is scheduled for JESUS today, awaiting further input from neurology and cardiology, possible transfer to rehab on Wednesday if stable and no further recommendation for any testing and intervention. On 10/11/2022 patient is alert and oriented 3 currently sitting up in chair. Patient continues to have right facial drooping complete expressive aphasia, difficulty swallowing and right upper extremity paralysis. No new neurological symptoms noted. Patient did have JESUS completed. White blood cell trending up 15.6 will order chest x-ray urinalysis blood culture and consult infectious dis ease. On 10/12/2022 patient was seen and examined on the telemetry floor she is alert and oriented in no apparent distress, she is still having right sided facial drooping, complete expressive aphasia, and difficulty swallowing, she is also having severe paralysis of the right upper extremity. I have discussed her case in details with Dr. Rondon and with Dr. Dye on neurology, patient failed on Xarelto and had a stroke while she was taking Xarelto, recommendation by cardiology was to switch to Pradaxa, which was done a few days ago, however patient was not able to swallow Pradaxa pills, and it's not recommended that those pills are crushed, so cardiology switched her back to Xarelto, however upon discussion today with neurology Dr. Amadou Dye, he recommended to switch to Eliquis. At this time will discontinue Xarelto today and start with Eliquis in a.m. tomorrow. Patient also has elevated white blood count possibly related to aspiration even though chest x-ray is not revealing evidence of pneumonia, patient is followed by infectious disease she is maintained on IV antibiotic, wi ll continue to follow closely. There is a bed available for patient in [facility] rehab unit, however due to elevated white blood count and use of IV antibiotics, she is not stable enough yet for transfer. Will follow in a.m.. Prognosis is guarded. On 10/13/2022 patient was seen and examined on the telemetry floor she is alert responsive in no apparent distress, clinically there is no significant change in her condition since yesterday, her white blood count is increasing up to 24.2 from 16.[address] Berg is following antibiotic were changed today to Zosyn, vital exam reveals a temperature of 97.8 pulse 56 respiration 18 blood pressure 140/73 pulse ox 91% on room air. No new recommendation from neurology or cardiology, will continue to follow closely, prognosis is guarded On 10/14/2022 patient is alert responsive sitting in bed patient does appear to have increased shortness of breath requiring increased oxygen at 5 L. This time a ordered stat chest x-ray and consult pulmonary services. Patient is on antibiotics of IV Zosyn. Infectious disease services are following. Patient denies chest pain. Patient denies nausea vomiting or diarrhea. She remains on anticoagulation of eliquis and Plavix On 10/15/2022 patient was seen and examined on the medical floor she is alert and responsive in no apparent distress she is still nonverbal she still has complete paralysis of the right upper extremity she still has facial drooping and difficulty swallowing, during sight effects specialist hours patient had episode of SVT with heart rate 120- 150 cardiology were contacted and she was started on IV Cardizem drip, white blood count continue to increase pulmonary and infectious disease are following currently patient is maintained on Zosyn and Zyvox possibility of thoracentesis is being discussed. Patient is not appropriate to discharge to rehab at this point will continue to follow closely. On 10/16/2022 patient was seen and examined in the ICU, over night patient developed worsening shortness of breath, she was transferred from the telemetry floor to the ICU and was started on BiPAP, pulmonary is following, and are planning for thoracentesis this morning, otherwise no change in condition since yesterday, prognosis remains guarded, pulmonary cardiology infectious disease and neurology are following. On 10/17/2022 patient was seen and examined in the ICU, she is alert responsive in no apparent distress, she is still nonverbal, she has right sided facial drooping, aphasia, and the right upper extremity paralysis, her shortness of breath has improved significantly, patient had thoracentesis yesterday, she is still maintained on IV antibiotics and her white blood count came down from 28,000-20,000 over the last 2 days, at this time will continue with current management patient can be transferred out of ICU today, hopefully she will be transferred to rehab over the next few days. On 10/18/2022 patient was seen and examined on the telemetry floor she is alert responsive in no apparent distress, she still has complete aphasia, right sided facial drooping, and right upper extremity paralysis, she is able to communicate by answering questions yes and no, she denies any pain or discomfort at this time, there is no evidence of shortness of breath at rest, chest x-ray reviewed and reveals worsening airspace disease throughout the right lung and similar airspace disease and pleural effusion on the left, no plans for repeat thoracentesis at this time per pulmonary. Labs today are still pending, white blood count was down to 20,000 yesterday patient is maintained on IV Zosyn and IV linezolid, infectious disease following, clinically patient is improving gradually, prognosis remains guarded, plan is to transfer to [facility] rehab when stable. On 10/19/2022 patient is sitting in chair alert and responsive remains with complete aphasia. Vital signs temp 97, heart rate 96, respiratory rate 20, blood pressure 166/79 potassium low at 3.1 replacement protocol. Patient remains on high flow nasal cannula 5 L. On 10/20/2022 patient was seen and examined on the telemetry floor she is alert responsive in no apparent distress, she still has complete aphasia, right sided facial drooping, and right upper extremity paralysis, patient is sitting up in a chair comfortably she denies any complaints. White blood count today 23.7 Objective - Vital Signs Vital signs: Vital Signs Temp 98.0 F 10/20/22 04:00 Pulse 99 10/20/22 04:00 Resp 26 H 10/20/22 04:00 BP 147/75 10/20/22 04:00 Pulse Ox 94 L 10/20/22 04:00 FiO2 100 10/19/22 22:35 Intake & Output 10/19/22 10/20/22 10/20/22 18:59 06:59 18:59 Intake Total 240 400 Output Total 1125 150 Balance -885 250 Weight 68.7 kg Intake: IV 400 Linezolid 600 mg In 300 Dextrose/Water 1 300ml. bag @ 150 mls/hr IVPB Q12HR [facility] Rx#:[id number] Piperacillin-Tazobactam 3 100 .375 gm In Sodium Chloride 0.9% 100 ml @ 25 mls/hr IVPB Q8HR [facility] Rx# :[id number] Oral 240 Output: Urine 1125 150 Other: Voiding Method Indwelling Catheter Indwelling Catheter # Bowel Movements 1 - Exam In general patient is alert and oriented, able to communicate by writing on board in no apparent distress HEENT head normocephalic and atraumatic Neck is supple no JVD no goiter no lymphadenopathy no carotid bruit Chest examination is clear to auscultation no crackles no wheezing Cardiac exam reveals regular heart sounds S1 and S2 no gallops no murmurs Abdomen is soft nontender no organomegaly with normal bowel sounds Extremity exam reveals no edema no cyanosis or clubbing Neurological examination reveals complete expressive aphasia, and right facial d rooping otherwise no focal deficit - Labs CBC & Chem 7: 10/20/22 06:43 10/20/22 06:43 Labs: Abnormal Lab Results - Last 24 Hours (Table) 10/19/22 10/19/22 10/20/22 Range/Units 08:25 08:25 06:43 WBC 21.3 H 23.7 H (3.8-10.6) k/uL Plt Count 78 L 68 L (150-450) k/uL Neutrophils # 19.5 H 22.3 H (1.3-7.7) k/uL Lymphocytes # 0.8 L 0.6 L (1.0-4.8) k/uL Potassium 3.1 L (3.5-5.1) mmol/L Carbon Dioxide 33 H (22-30) mmol/L Glucose 105 H (74-99) mg/dL Calcium 8.3 L (8.4-10.2) mg/dL AST 48 H (14-36) U/L Alkaline Phosphatase 219 H (38-126) U/L Total Protein 5.6 L (6.3-8.2) g/dL Albumin 2.8 L (3.5-5.0) g/dL 10/20/22 Range/Units 06:43 WBC (3.8-10.6) k/uL Plt Count (150-450) k/uL Neutrophils # (1.3-7.7) k/uL Lymphocytes # (1.0-4.8) k/uL Potassium 3.3 L (3.5-5.1) mmol/L Carbon Dioxide 34 H (22-30) mmol/L Glucose 101 H (74-99) mg/dL Calcium 8.1 L (8.4-10.2) mg/dL AST (14-36) U/L Alkaline Phosphatase 187 H (38-126) U/L Total Protein 4.7 L (6.3-8.2) g/dL Albumin 2.4 L (3.5-5.0) g/dL Assessment and Plan Plan: Expressive aphasia and right facial droop secondary to ischemic stroke Reoccurring ischemic stroke with right arm paralysis Bilateral pleural effusions status post thoracentesis on 10/16/2022 cytology pending Leukocytosis secondary to possible aspiration pneumonia. Chest x-ray, urinary analysis blood culture ordered consult infectious disease Underlying history of lung cancer Underlying history of breast cancer Previous history of DVT 3 weeks ago, maintained on Xarelto Underlying history of left pleural effusion History of atrial fibrillation At this time patient was seen and examined in the emergency room Home medications reviewed and reordered Cardiology, pulmonary and neurology service is following JESUS completed on 10/10/2022 Will follow closely
--- NOTE | 2022-10-20 15:22 | P.PN ---
Progress Note - Text Progress Note Date: 10/20/22 This is a follow-up on a progress note on Kat Kim, on 10/19/2022 Today I had a prolonged discussion over the phone with patient's daughter Johana Urena Elevated white blood count, possibility of recurrent aspiration, IV antibiotic use, and nutritional needs were discussed in detail At this time recommendation is to proceed with PEG tube placement, for 2 reasons to achieve nutritional goals and to prevent aspiration Daughter is agreeable to procedure, however she stated that her brother Hayder is a power of contract attorney, she states that he will be in the hospital tomorrow morning and will be able to sign consent for procedure Consultation for Dr. aguillon was initiated for PEG tube placement
--- NOTE | 2022-10-20 16:34 | P.PN ---
Subjective Progress Note Date: 10/20/22 10/20/2022: Patient was seen for a follow-up. Patient is sitting comfortably in the recliner. Patient continues to be significantly aphasic, right hemiparetic. Patient is declining NG tube or PEG tube placement. She is now on regular floor 357. 10/15/2022: Patient was seen for follow-up. Patient since last seen, was followed up by Dr. Amadou Dye. Please refer to his note for details. Patient at present is in ICU in bed #264. She was transferred to the ICU because of l arge left pleural effusion. Patient also had runs of SVT last night for which an A-team was activated. 10/07/2022: Patient has developed new focal symptoms as of this morning. Patient has developed right arm weakness, which is very noticeable. This is an acute change. Patient continues to be severely expressively aphasic. Her comprehension appears to be slightly worse today. Patient admits to having headache. 10/06/2022: Patient was seen for a follow-up. Patient is sitting comfortably in the recliner. Denies any headache. Family members were not present today. Patient continues to be severely aphasic with anarthria. Telemetry monitoring showing sinus rhythm. 10/05/2022: Patient initially seen by Dr. Amadou Dye. Please refer to his note for details. Patient is a 72-year-old right-handed female with history of stage IV lung cancer, came with global aphasia and muteness. Patient's daughter was present, who provided with history. On Wednesday evening 09/30/2022 at 7 PM, while cutting vegetables, she stopped getting the jaycob and started drooling for 15 minutes. She was brought to the hospital and her speech returned back to baseline. She was sent home, and next day on at 9:30 AM, she stopped talking and has never regained speech yet. MRI of the brain revealed multiple bilateral hemispheric stroke, left slightly more than right. Patient has history of DVT 3 weeks ago and atrial fibrillation and was on Xarelto but appears failed. Patient was started on broad neck side yesterday. JESUS is pending. Patient's daughter was also present, who states that patient is cognitively intact. She understands everything, but cannot express herself which makes her very frustrated. Some of the workup during his hospital visit consisted of: Lipid panel triglycerides 79, cholesterol is 204, LDLs 128, HDL 59. CT head is reported as no acute intracranial process. I personally reviewed that a CT and there is no acute or subacute ischemia seen. There is no mass affect. CT angiography of the head and neck was reported as no evidence of dissection of the cervical internal carotid arteries or vertebral artery or any evidence of significant stenosis at the carotid bifurcation. No evidence of intracranial high-grade stenosis or intracranial aneurysm. Intracranial atherosclerosis of the internal carotid artery without hemodynamic stenosis. Right and increased size of left pleural effusion. There is a pleural sign in the left which could represent empyema. Persistent that scattered nodular opacity likely representing metastatic disease from the patient known malignancy. EKG is reported as sinus rhythm. Low QRS voltage [facility] Drug screen is negative. MRI brain is reported as scattered foci of restricted diffusion compatible with acute/subacute CVA. Given multiple vascular distribution correlate for embolic phenomena. No abnormal postcontrast enhancement the, no evidence for mass. Nonspecific white matter changes likely secondary to chronic small vessel ischemic disease. I personally reviewed the MRI and I agree with the report. Patient has restriction diffusion over bilateral frontal left more than the right with right parietal occipital region The echo was reported as suboptimal acoustic windows. Contrast echo study performed. Borderline normal left ventricle systolic function septal bulge. There is septal and inferior basal hypokinesis. Routine EEG is normal. There is no focal slowing, epileptiform discharges or seizure on the EEG. Venous duplex of the upper and lower extremities negative Objective - Vital Signs Vital signs: Vital Signs Temp 98.1 F 10/20/22 12:00 Pulse 86 10/20/22 12:00 Resp 18 10/20/22 12:00 BP 127/74 10/20/22 12:00 Pulse Ox 94 L 10/20/22 12:00 FiO2 100 10/19/22 22:35 Intake & Output 10/19/22 10/20/22 10/20/22 18:59 06:59 18:59 Intake Total 240 400 0 Output Total 1125 150 Balance -885 250 0 Weight 68.7 kg Intake: IV 400 Linezolid 600 mg In 300 Dextrose/Water 1 300ml. bag @ 150 mls/hr IVPB Q12HR [facility] Rx#:[id number] Piperacillin-Tazobactam 3 100 .375 gm In Sodium Chloride 0.9% 100 ml @ 25 mls/hr IVPB Q8HR [facility] Rx# :[id number] Oral 240 0 Output: Urine 1125 150 Other: Voiding Method Indwelling Catheter Indwelling Catheter Indwelling Catheter # Bowel Movements 1 - Exam Patient is alert and awake, sitting comfortably in the recliner. Patient has oxygen by nasal cannula. Patient is severely aphasic. Mute, not able to speak any words. She could not speak out numbers or alphabets. He cannot repeat. She was not able to follow directions like pointing to the window, the door or the ceiling. Patient not able to name any object like fork, tissue paper. Cranial nerves significant for pupils equal, round and reacting. Patient would not understand directions to check for visual patel. She would nod her head yes for everything. Patient has right facial asymmetry. Tongue protrudes to the midline. Patient is flaccid in the right upper limb with no movement. The strength is normal in the left upper limb. Her strength is normal in the ankles, 5-right, 5 left. - Labs CBC & Chem 7: 10/20/22 06:43 10/20/22 06:43 Labs: Abnormal Lab Results - Last 24 Hours (Table) 10/20/22 10/20/22 Range/Units 06:43 06:43 WBC 23.7 H (3.8-10.6) k/uL Plt Count 68 L (150-450) k/uL Neutrophils # 22.3 H (1.3-7.7) k/uL Lymphocytes # 0.6 L (1.0-4.8) k/uL Potassium 3.3 L (3.5-5.1) mmol/L Carbon Dioxide 34 H (22-30) mmol/L Glucose 101 H (74-99) mg/dL Calcium 8.1 L (8.4-10.2) mg/dL Alkaline Phosphatase 187 H (38-126) U/L Total Protein 4.7 L (6.3-8.2) g/dL Albumin 2.4 L (3.5-5.0) g/dL Microbiology - Last 24 Hours (Table) 10/16/22 09:45 Gram Stain - Preliminary Pleural Fluid Body Fluid Culture - Preliminary Assessment and Plan Assessment: Recurrent ischemic strokes. Patient has failed Pradaxa, Xarelto in the recent past with breakthrough strokes. Patient at present is severely aphasic, right hemiplegic, mainly involving the facial brachial region. Acute ischemic stroke (over bilateral hemisphere: bilateral frontal L>R, right parietal and occipital region). Stroke appears embolic in nature: Probable c ardioembolic. Patient currently on Eliquis. Leukocytosis and possible pneumonia. Patient on Zosyn and Linezolid, ID on board. History of left lung cancer History of right breast cancer History of recent DVT about 3 weeks ago and was on Xarelto Left Pleural effusion on CTA History of pleural effusion, status post thoracentesis 1300 serosanguineous fluid removed History of atrial fibrillation and in past was on anticoagulation then stopped then after DVT 3 weeks ago restarted it Plan: Patient had recurrent ischemic strokes. CTA of head and neck showed no significant change from recent CTA study. No LVO. Patient has failed Xarelto, and now also Pradaxa. Patient is also on Plavix. Patient now started on Eliquis. This has been held because of need for thoracentesis for pleural effusion. JESUS performed 10/10/2022 revealed normal appearance left atrial appendage. Normal left ventricular size and systolic function. No shunting across the intra-atrial septum. Mild mitral and tricuspid regurgitation. Aortic valve sclerosis without stenosis. Continue Lipitor 40 mg daily at bedtime second stroke prophylaxis Routine EEG normal. Cardiac monitoring PT OT and [employer] are consulted. Patient is declining feeding tube. She is at risk for aspiration. Cardiology is on board. Pulmonary team is consulted for pleural effusion and history of lung cancer We'll defer the rest of the medical management to primary team For DVT prophylaxis: Eliquis. Neurologically clear for discharge to rehab facility. Neurology will follow sporadically.
[2022-10-20] MEDS: ATORVASTATIN 40 MG TAB PO SCH (21:42)
--- NOTE | 2022-10-20 21:46 | P.PN ---
Subjective Progress Note Date: 10/20/22 Principal diagnosis: Leukocytosis Patient is a 72-year-old female with multiple comorbidities has been in the hospital for more than 10 days currently being evaluated and treatment for possible stroke and noticed to have elevated white count. On today's evaluation that is 10/20/2022, the patient continues to be afebrile patient did have worsening respiratory status last night however the patient is down to 6 L nasal cannula oxygen this morning, the patient denies any chest pain or shortness of breath no worsening cough or sputum production no abdominal pain no diarrhea Objective - Vital Signs Vital signs: Vital Signs Temp 98.1 F 10/20/22 12:00 Pulse 86 10/20/22 12:00 Resp 18 10/20/22 12:00 BP 127/74 10/20/22 12:00 Pulse Ox 94 L 10/20/22 12:00 FiO2 100 10/19/22 22:35 Intake & Output 10/19/22 10/20/22 10/20/22 18:59 06:59 18:59 Intake Total 240 400 0 Output Total 1125 150 Balance -885 250 0 Weight 68.7 kg Intake: IV 400 Linezolid 600 mg In 300 Dextrose/Water 1 300ml. bag @ 150 mls/hr IVPB Q12HR [facility] Rx#:[id number] Piperacillin-Tazobactam 3 100 .375 gm In Sodium Chloride 0.9% 100 ml @ 25 mls/hr IVPB Q8HR [facility] Rx# :[id number] Oral 240 0 Output: Urine 1125 150 Other: Voiding Method Indwelling Catheter Indwelling Catheter Indwelling Catheter # Bowel Movements 1 - Exam GENERAL DESCRIPTION: Elderly female up in the chair in no distress RESPIRATORY SYSTEM: Unlabored breathing , decreased breath sounds at bases HEART: S1 S2 regular rate and rhythm ,no loud murmurs ABDOMEN: Soft , no tenderness EXTREMITIES: No edema feet - Labs CBC & Chem 7: 10/20/22 06:43 10/20/22 06:43 Labs: Abnormal Lab Results - Last 24 Hours (Table) 10/20/22 10/20/22 Range/Units 06:43 06:43 WBC 23.7 H (3.8-10.6) k/uL Plt Count 68 L (150-450) k/uL Neutrophils # 22.3 H (1.3-7.7) k/uL Lymphocytes # 0.6 L (1.0-4.8) k/uL Potassium 3.3 L (3.5-5.1) mmol/L Carbon Dioxide 34 H (22-30) mmol/L Glucose 101 H (74-99) mg/dL Calcium 8.1 L (8.4-10.2) mg/dL Alkaline Phosphatase 187 H (38-126) U/L Total Protein 4.7 L (6.3-8.2) g/dL Albumin 2.4 L (3.5-5.0) g/dL Microbiology - Last 24 Hours (Table) 10/16/22 09:45 Gram Stain - Preliminary Pleural Fluid Body Fluid Culture - Preliminary Assessment and Plan (1) Leukocytosis Current Visit: Yes Status: Acute Code(s): D72.829 - ELEVATED WHITE BLOOD CELL COUNT, UNSPECIFIED SNOMED Code(s): 455023534 (2) Pneumonia Current Visit: Yes Status: Acute Code(s): J18.9 - PNEUMONIA, UNSPECIFIED ORGANISM SNOMED Code(s): 428309219 Plan: 1patient with elevated white count and this patient admitted to hospital about 10 days ago predominantly for strokelike symptoms and nonverbal MRI was suspicious for possible embolic phenomena and is being evaluated by cardiology pulmonary service since patient did receive 1 dose of steroids on admission but no steroids since then has been complaining of some sores in the mouth and concern for possible thrush/oropharyngeal candidiasis, patient did not have any fever urine has been negative chest x-ray bilateral effusion with left greater than right progressively suspicious disease with question of possible fluid related however the patient also complaining of some cough with sputum production underlying pneumonia less likely but not entirely excluded 2-blood cultures has been negative so far patient did have elevated CRP of 7.0 however did have a normal procalcitonin sputum culture has been requested 3-Patient did have off-and-on worsening of respiratory status as well as up and down in the white count concerning for possible recurrent aspiration pneumonia plan is for possible PEG tube placement patient is covered with Zosyn and Zyvox to continue monitor clinical course closely Time with Patient: Less than 30
[2022-10-21] MEDS ORDERED: SODIUM CHLORIDE 0.9% 500 ML 500 ML IV ONE (00:14)
[2022-10-21] MEDS: DILTIAZEM 125 MG in SODIUM CHLORIDE 0.9% 100 ML IV SCH ×2 (01:17→13:25)
[2022-10-21] MEDS: SODIUM CHLORIDE 0.9% 1,000 ML IV SCH ×2 (01:19→12:45)
[2022-10-21] MEDS ORDERED: METOPROLOL TARTRATE 25 MG TAB PO STA (01:20)
[2022-10-21] MEDS: PIPERACILLIN-TAZOBACTAM 3.375 GM in SODIUM CHLORIDE 0.9% 100 ML IVPB SCH ×4 (01:42→23:10)
[2022-10-21] MEDS: carvediloL 3.125 MG TAB PO SCH ×2 (06:15→18:00)
[2022-10-21 08:54] LABS: Basophils % (A) 0 %; Eosinophils # (A) 0.1 k/uL (0-0.7); Eosinophils % (A) 1 %; HCT 39.3 % (34.0-46.0); HGB 12.7 gm/dL (11.4-16.0); Lymphocytes # (A) 0.7 k/uL (1.0-4.8); Lymphocytes % (A) 4 %; MCH 29.6 pg (25.0-35.0); MCHC 32.4 g/dL (31.0-37.0); MCV 91.5 fL (80.0-100.0); Mean Platelet Volume 10.1; Monocytes # (A) 0.8 k/uL (0-1.0); Monocytes % (A) 4 %; Neutrophils # (A) 17.4 k/uL (1.3-7.7); Neutrophils % (A) 92 %; RDW 13.8 % (11.5-15.5)
[2022-10-21 09:03] LABS: Platelet Count 88 k/uL (150-450)
[2022-10-21] MEDS: PANTOPRAZOLE 40 MG/10 ML VIAL IVP SCH (09:08)
[2022-10-21] MEDS: LINEZOLID 600 MG in DEXTROSE/WATER 1 300ML.BAG IVPB SCH ×2 (09:09→19:57)
[2022-10-21] MEDS: LACTULOSE 20 GM/30 ML CUP PO SCH ×4 (09:09→23:05)
[2022-10-21] MEDS: ACETAMINOPHEN TAB 325 MG TAB PO PRN (09:10)
[2022-10-21] MEDS: CLOPIDOGREL 75 MG TAB PO SCH (09:11)
[2022-10-21] MEDS: DOCUSATE 100 MG CAP PO SCH ×2 (09:11→19:57)
[2022-10-21] MEDS: lisinopriL 5 MG TAB PO SCH ×2 (09:11→19:57)
[2022-10-21] MEDS: FLUCONAZOLE 100 MG TAB PO SCH (09:11)
[2022-10-21] MEDS: ANASTROZOLE 1 MG TAB PO SCH (09:11)
[2022-10-21] MEDS: OSIMERTINIB 80 MG PO SCH (09:12)
[2022-10-21] MEDS: APIXABAN 5 MG TAB PO SCH (09:13)
[2022-10-21 09:24] LABS: ALT 32 U/L (4-34); AST 39 U/L (14-36); African American GFR (CKD) >90 (>60 ml/min/1.73 sqM); Albumin 2.8 g/dL (3.5-5.0); Alkaline Phosphatase 222 U/L (38-126); Anion Gap 2 mmol/L; Blood Urea Nitrogen 12 mg/dL (7-17); Calcium 8.3 mg/dL (8.4-10.2); Carbon Dioxide 35 mmol/L (22-30); Chloride 101 mmol/L (98-107); Glucose 115 mg/dL (74-99); Non-African American GFR(CKD) >90 (>60 ml/min/1.73 sqM); Potassium 3.3 mmol/L (3.5-5.1); Sodium 138 mmol/L (137-145); Total Bilirubin 0.6 mg/dL (0.2-1.3); Total Protein 5.5 g/dL (6.3-8.2)
[2022-10-21] MEDS ORDERED: LACTATED RINGERS 1,000 ML IV SCH (09:45)
--- NOTE | 2022-10-21 10:48 | P.PN ---
Subjective Progress Note Date: 10/21/22 Kat Kim, is a 72-year-old female who presented to [facility] emergency room with a chief complaint difficulty with her speech, and right facial drooping, patient presented to emergency room with similar complaints yesterday, at that time [facility] however she felt that she was improving and she opted to go home. However over the next several hours patient developed complete aphasia, she was brought back to the emergency room by her family. She was evaluated in the emergency room vital examination on presentation revealed a temperature of 99 pulse 84 respiration 18 blood pressure 160/87 pulse ox 94% on room air Laboratory data revealed a white blood count of 7.1 hemoglobin 14.6 platelet count 167 sodium 137 potassium 4.3 chloride 102 CO2 29 BUN 9 creatinine 0.56 urine analysis revealed no evidence of infection and urine toxicology screen was negative Testing in the emergency room revealed, computed tomography scan of the brain without contrast was done in the emergency room and revealed no acute intracranial process, CT angiogram of the brain done in the emergency room revealed no evidence of dissection of the cervical internal carotid arteries or vertebral arteries or any evidence of significant stenosis at the carotid bifurcation there was no evidence of intracranial high-grade stenosis or intracranial aneurysm Patient was admitted to medical floor for further evaluation and treatment, neurology consultation was requested Past medical history is significant for history of breast cancer, history of stacey ng cancer, history of atrial fibrillation, history of lower extremity DVT, patient was maintained on Xarelto At home On 10/02/2022. Patient is currently resting in room remains with difficulty in speech and right facial drooping. MRI of the brain was completed showing scattered foci of restricted diffusion compatible with acute or subacute CVA given multiple vascular distributions correlate for emboli phenomenon. Neurology services are following. Cardiology services also consulted. Current vital signs temp 98.1, heart rate 74, blood pressure 129/67 pulse ox of 94% on room air On 10/03/2022, patient was seen and examined on telemetry, case was discussed in details with Dr. Amadou López neurologist, patient is developing more difficulty with swallowing, recommendation from neurology is to proceed with JESUS, to rule out cardiac thrombus or PFO. However due to significant difficulty with swallowing, cardiology wanted to wait at this time on JESUS. Recommendation from neurology at this time is to proceed with upper and lower bilateral lower extremity Doppler to rule out acute DVT, and to start anticoagulation starting tomorrow. On 10/04/2022 patient is sitting comfortably in chair. Patient remains nonverbal. Pradaxa has been started per cardiology and neurology recommendations. Current vital signs temp 97.5, heart rate 77, respiratory rate 16, blood pressure 1 5476 with pulse ox 93% on room air. Per cardiology at this time JESUS remains on hold due to difficulty in swallowing. On 10/05/2022 patient was seen and examined on the medical she is alert and oriented 3 in no apparent distress, she is sitting up in a chair, she still has significant facial drooping, she has complete aphasia, she tries to answer questions by nodding her head, she is still having significant difficulty with swallowing, cardiology note reviewed, no plans for JESUS at this time due to difficulty swallowing and the risk of aspiration, she was started on Pradaxa for anticoagulation, she is having difficulty swallowing the pill as it cannot be crushed. At this time will continue with physical therapy, occupational therapy, and speech therapy, will reassess in a.m. On 10/06/2022 patient was seen and examined the medical floor she is alert and oriented in no apparent distress, she is sitting up in a chair she still has complete aphasia, she is having difficulty swallowing, she is complaining of constipation, otherwise she denies any complaints there is no fever or chills no headache or dizziness no chest pain no shortness of breath no cough no nausea or vomiting no abdominal pain no diarrhea and no urinary symptoms. At this time, JESUS will be delayed until patient has better swallowing per cardiology, possibility of rehab admission discussed with patient however she is indicating that she wants to go home, possible discharge to home tomorrow if stable and no further recommendation from cardiology or neurology On 10/07/2022 patient is currently sitting in chair. Patient's son at bedside. Per patient's son patient had a fall this a.m. due to new onset of weakness to her right arm. Patient denies any injuries from fall but does report that the right arm weakness started last night. This is new per son. At this time will do a head CT and discussed with nursing staff to notify neurology services. patient denies chest pain or shortness of breath. Patient denies nausea vomiting or diarrhea. Patient denies any urinary burning or frequency. On 10/08/2022 patient was seen and examined on the telemetry floor she is alert responsive in no apparent distress she is still completely aphasic, she is answering questions by nodding her head, she is still having right sided facial drooping and difficulty swallowing, she also now has complete paralysis of the right upper extremity, neurology are following closely, they recommended JESUS however per their notes patient has refused to complete test. Medication were reviewed will continue with current management will discuss with neurology further treatment steps. On 10/09/2022 patient is currently resting comfortably in bed. Patient have some movement to right extremity no further new neurological symptoms. Patient still having right-sided facial drooping and difficulty swallowing. Patient's son is at bedside per family trying to convince patient to move forward with JESUS. Neurology services are following this time patient denies chest pain or shortness of breath. Patient denies nausea vomiting or diarrhea. Patient denies any urinary burning or frequency On 10/10/2022 patient was seen and examined on the telemetry floor she is alert and oriented 3 in no apparent distress she is still having right facial drooping, complete expressive aphasia, difficulty swallowing, and right upper extremity paralysis, she is scheduled for JESUS today, awaiting further input from neurology and cardiology, possible transfer to rehab on Wednesday if stable and no further recommendation for any testing and intervention. On 10/11/2022 patient is alert and oriented 3 currently sitting up in chair. Patient continues to have right facial drooping complete expressive aphasia, difficulty swallowing and right upper extremity paralysis. No new neurological symptoms noted. Patient did have JESUS completed. White blood cell trending up 15.6 will order chest x-ray urinalysis blood culture and consult infectious dis ease. On 10/12/2022 patient was seen and examined on the telemetry floor she is alert and oriented in no apparent distress, she is still having right sided facial drooping, complete expressive aphasia, and difficulty swallowing, she is also having severe paralysis of the right upper extremity. I have discussed her case in details with Dr. Rondon and with Dr. Dye on neurology, patient failed on Xarelto and had a stroke while she was taking Xarelto, recommendation by cardiology was to switch to Pradaxa, which was done a few days ago, however patient was not able to swallow Pradaxa pills, and it's not recommended that those pills are crushed, so cardiology switched her back to Xarelto, however upon discussion today with neurology Dr. Amadou Dye, he recommended to switch to Eliquis. At this time will discontinue Xarelto today and start with Eliquis in a.m. tomorrow. Patient also has elevated white blood count possibly related to aspiration even though chest x-ray is not revealing evidence of pneumonia, patient is followed by infectious disease she is maintained on IV antibiotic, wi ll continue to follow closely. There is a bed available for patient in [facility] rehab unit, however due to elevated white blood count and use of IV antibiotics, she is not stable enough yet for transfer. Will follow in a.m.. Prognosis is guarded. On 10/13/2022 patient was seen and examined on the telemetry floor she is alert responsive in no apparent distress, clinically there is no significant change in her condition since yesterday, her white blood count is increasing up to 24.2 from 16.[address] Berg is following antibiotic were changed today to Zosyn, vital exam reveals a temperature of 97.8 pulse 56 respiration 18 blood pressure 140/73 pulse ox 91% on room air. No new recommendation from neurology or cardiology, will continue to follow closely, prognosis is guarded On 10/14/2022 patient is alert responsive sitting in bed patient does appear to have increased shortness of breath requiring increased oxygen at 5 L. This time a ordered stat chest x-ray and consult pulmonary services. Patient is on antibiotics of IV Zosyn. Infectious disease services are following. Patient denies chest pain. Patient denies nausea vomiting or diarrhea. She remains on anticoagulation of eliquis and Plavix On 10/15/2022 patient was seen and examined on the medical floor she is alert and responsive in no apparent distress she is still nonverbal she still has complete paralysis of the right upper extremity she still has facial drooping and difficulty swallowing, during steamship agent hours patient had episode of SVT with heart rate 120- 150 cardiology were contacted and she was started on IV Cardizem drip, white blood count continue to increase pulmonary and infectious disease are following currently patient is maintained on Zosyn and Zyvox possibility of thoracentesis is being discussed. Patient is not appropriate to discharge to rehab at this point will continue to follow closely. On 10/16/2022 patient was seen and examined in the ICU, over night patient developed worsening shortness of breath, she was transferred from the telemetry floor to the ICU and was started on BiPAP, pulmonary is following, and are planning for thoracentesis this morning, otherwise no change in condition since yesterday, prognosis remains guarded, pulmonary cardiology infectious disease and neurology are following. On 10/17/2022 patient was seen and examined in the ICU, she is alert responsive in no apparent distress, she is still nonverbal, she has right sided facial drooping, aphasia, and the right upper extremity paralysis, her shortness of breath has improved significantly, patient had thoracentesis yesterday, she is still maintained on IV antibiotics and her white blood count came down from 28,000-20,000 over the last 2 days, at this time will continue with current management patient can be transferred out of ICU today, hopefully she will be transferred to rehab over the next few days. On 10/18/2022 patient was seen and examined on the telemetry floor she is alert responsive in no apparent distress, she still has complete aphasia, right sided facial drooping, and right upper extremity paralysis, she is able to communicate by answering questions yes and no, she denies any pain or discomfort at this time, there is no evidence of shortness of breath at rest, chest x-ray reviewed and reveals worsening airspace disease throughout the right lung and similar airspace disease and pleural effusion on the left, no plans for repeat thoracentesis at this time per pulmonary. Labs today are still pending, white blood count was down to 20,000 yesterday patient is maintained on IV Zosyn and IV linezolid, infectious disease following, clinically patient is improving gradually, prognosis remains guarded, plan is to transfer to [facility] rehab when stable. On 10/19/2022 patient is sitting in chair alert and responsive remains with complete aphasia. Vital signs temp 97, heart rate 96, respiratory rate 20, blood pressure 166/79 potassium low at 3.1 replacement protocol. Patient remains on high flow nasal cannula 5 L. On 10/20/2022 patient was seen and examined on the telemetry floor she is alert responsive in no apparent distress, she still has complete aphasia, right sided facial drooping, and right upper extremity paralysis, patient is sitting up in a chair comfortably she denies any complaints. White blood count today 23.7 On 10/21/2022 patient currently sitting up in bed remains aphasic. Increased oxygen demand concerns for possible aspiration. chest x-ray ordered. Recommendations for possible PEG tube placement due to reoccurring aspiration. Unable to assess patient mentation due to aphasia family concerned over patient competence in regards to decision about PEG tube placement will consult psychiatry services to assess patient's competency and decision-making ability. We'll also reconsult pulmonary services due to increased oxygen demands. Patient does have elevated heart rate Cardizem ordered per cardiology services. Objective - Vital Signs Vital signs: Vital Signs Temp 97.9 F 10/21/22 04:00 Pulse 117 H 10/21/22 04:00 Resp 20 10/21/22 04:00 BP 150/92 10/21/22 04:00 Pulse Ox 93 L 10/21/22 04:00 FiO2 100 10/19/22 22:35 Intake & Output 10/20/22 10/21/22 10/21/22 18:59 06:59 18:59 Intake Total 240 110 Balance 240 110 Intake: Oral 240 110 Other: Voiding Method Indwelling Catheter Indwelling Catheter # Voids 1 # Bowel Movements 1 - Exam In general patient is alert and oriented, able to communicate by writing on board in no apparent distress HEENT head normocephalic and atraumatic Neck is supple no JVD no goiter no lymphadenopathy no carotid bruit Chest examination is clear to auscultation no crackles no wheezing Cardiac exam reveals regular heart sounds S1 and S2 no gallops no murmurs Abdomen is soft nontender no organomegaly with normal bowel sounds Extremity exam reveals no edema no cyanosis or clubbing Neurological examination reveals complete expressive aphasia, and right facial drooping otherwise no focal deficit - Labs CBC & Chem 7: 10/21/22 08:19 10/21/22 08:19 Labs: Abnormal Lab Results - Last 24 Hours (Table) 10/21/22 10/21/22 Range/Units 08:19 08:19 WBC 19.0 H (3.8-10.6) k/uL Plt Count 88 L (150-450) k/uL Neutrophils # 17.4 H (1.3-7.7) k/uL Lymphocytes # 0.7 L (1.0-4.8) k/uL Potassium 3.3 L (3.5-5.1) mmol/L Carbon Dioxide 35 H (22-30) mmol/L Glucose 115 H (74-99) mg/dL Calcium 8.3 L (8.4-10.2) mg/dL AST 39 H (14-36) U/L Alkaline Phosphatase 222 H (38-126) U/L Total Protein 5.5 L (6.3-8.2) g/dL Albumin 2.8 L (3.5-5.0) g/dL Microbiology - Last 24 Hours (Table) 10/16/22 09:45 Gram Stain - Final Pleural Fluid Body Fluid Culture - Final Assessment and Plan Plan: Expressive aphasia and right facial droop secondary to ischemic stroke Reoccurring ischemic stroke with right arm paralysis Bilateral pleural effusions status post thoracentesis on 10/16/2022 cytology pending Leukocytosis secondary to possible aspiration pneumonia. Patient remains on IV antibiotics infectious disease service is consulted Recurring aspiration pneumonia. Dr. alonso consulted for possible PEG tube placement Underlying history of lung cancer Underlying history of breast cancer Previous history of DVT 3 weeks ago, maintained on Xarelto Underlying history of left pleural effusion History of atrial fibrillation At this time patient was seen and examined in the emergency room Home medications reviewed and reordered Cardiology, pulmonary, infectious disease and neurology service is following Psychiatry service is consulted to assess competency and decision-making ability Surgical service is consulted for possible PEG tube placement JESUS completed on 10/10/2022 Will follow closely
--- NOTE | 2022-10-21 11:14 | XR ---
EXAMINATION TYPE: XR chest 1V portable DATE OF EXAM: 10/21/2022 COMPARISON: 10/19/2022 HISTORY: Shortness of breath TECHNIQUE: Single frontal view of the chest is obtained. FINDINGS: Bilateral diffuse consolidation and marked left apical pleural thickening stable. Small bi lateral effusions with limited inspiration. Atherosclerotic change aorta. No pneumothorax. Arthropath y of the shoulders. IMPRESSION: 1. Diffuse bilateral airspace disease with bilateral effusions and marked asymmetric left apical pleu ral thickening. Findings are stable from recent exam correlate for CHF or diffuse pneumonia.
--- NOTE | 2022-10-21 13:40 | P.GSCN ---
History of Present Illness Consult date: 10/21/22 History of present illness: CHIEF COMPLAINT: CVA Reason for consult PEG tube placement HISTORY OF PRESENT ILLNESS: This is a 72-year-old female with a history of recurrent CVAs. She also has a known history of PE and DVT. She has been having episodes of aspiration. She did pass her swallow eval. Her oral intake has been poor since her stroke. She also has a known history of lung cancer and recurrent pleural effusions. There is concerns that patient may have aspirated again this morning while eating breakfast. She was made nothing by mouth. She is on 10 L of oxygen satting at 93%. She was also tachycardic. Medicine service has consulted pulmonary service due to respiratory status. Patient is on Plavix and Eliquis for history of CVA and DVT and PE. PAST MEDICAL HISTORY: See below PAST SURGICAL HISTORY: See below MEDICATIONS: See below ALLERGIES: See below SOCIAL HISTORY: No illicit drug use. REVIEW OF SYSTEMS: CONSTITUTIONAL: Denies fever or chills. HEENT: Denies blurred vision, vision changes, or eye pain. Denies hemoptysis CARDIOVASCULAR: Denies chest pain or pressure. RESPIRATORY: No shortness of breath. GASTROINTESTINAL: See HPI for pertinent findings HEMATOLOGIC: Denies bleeding disorders. GENITOURINARY: Denies any blood in urine or increased urinary frequency. SKIN: Denies pruitis. Denies rash. PHYSICAL EXAM: VITAL SIGNS: Reviewed GENERAL: Well-developed in no acute distress. HEENT: No sclera icterus. Extraocular movements grossly intact. Moist buccal mucosa. Head is atraumatic, normocephalic. No nasal drainage. ABDOMEN: Soft. Nondistended. Nontender NEUROLOGIC: Patient is awake and alert. Excessive aphasia LABORATORY DATA: WBC is 23 down to 19 Hgb is 12.7 platelets 88 Sodium is 13 potassium is 3.3 creatinine 0.55 Albumin 2.4 IMAGING: Chest x-ray diffuse bilateral airspace disease with bilateral effusions and marked asymmetric left apical pleural thickening. Findings are stable from recent exam correlate for CHF or diffuse pneumonia ASSESSMENT: 1. Ischemic stroke 2. Recurrent aspiration and severe protein calorie malnutrition 3. Hypoxia PLAN: -Patient tentatively scheduled for PEG tube placement tomorrow, 10/22/[address] Bennett -Hold Plavix and Eliquis for procedure -Nothing by mouth after midnight -We'll need pulmonary clearance before proceeding with PEG tube placement Thank you for this consultation Physician Tape Transferrer note has been reviewed by physician. Signing provider agrees with the documented findings, assessment, and plan of care. Patient seen earlier today. Spoke with the patient's son by phone. Believe patient would benefit from PEG tube placement for patient's issues regarding aspiration risk and malnutrition. Currently patient's respiratory status is poor. Will reassess tomorrow. Continue to hold Eliquis. Risks of bleeding, infection, bowel injury reviewed. Patient and son would like to proceed when medically stable. Past Medical History Past Medical History: Cancer, Hypertension, Myocardial Infarction (PR), Osteoarthritis (OA) Additional Past Medical History / Comment(s): 06-14-17 stemi, Breast CA, lung nodule/CA Last Myocardial Infarction Date:: 06/14/2017 History of Any Multi-Drug Resistant Organisms: None Reported Past Surgical History: Heart Catheterization With Stent, Tubal Ligation Additional Past Surgical History / Comment(s): 06-14-17 heart cath w/ stent rca . other past sx:D&C, laser lt eye sx. Past Anesthesia/Blood Transfusion Reactions: Motion Sickness, Postoperative Nausea & Vomiting (PONV) Date of Last Stent Placement:: 06/14/2017 Past Psychological History: No Psychological Hx Reported Smoking Status: Never smoker Past Alcohol Use History: None Reported Past Drug Use History: None Reported - Past Family History Mother Family Medical History: CVA/TIA Father Family Medical History: Cancer Additional Family Medical History / Comment(s): LIP Medications and Allergies Home Medications Medication Instructions Recorded Confirmed Type Anastrozole [Arimidex] 1 mg PO DAILY 10/01/22 10/01/22 History Osimertinib Mesylate [Tagrisso] 80 mg PO DAILY 10/01/22 10/01/22 History Rivaroxaban [Xarelto] 20 mg PO DAILY 10/01/22 10/01/22 History carvediloL [Coreg] 3.125 mg PO BID 10/01/22 10/01/22 History Allergies Allergy/AdvReac Type Severity Reaction Status Date / Time codeine AdvReac Nausea & Verified 10/01/22 11:29 Vomiting EYE DROPS WITH PRESERVATIVE/ Allergy Unknown Uncoded 10/29/21 16:03 [facility] - Exam Vital Signs Temp Pulse Resp BP Pulse Ox 99.0 F 84 18 160/87 94 L 10/01/22 10:12 10/01/22 10:12 10/01/22 10:12 10/01/22 10:12 10/01/22 10:12 Results - Labs 10/21/22 08:19 10/21/22 08:19 Abnormal Lab Results - Last 24 Hours (Table) 10/21/22 10/21/22 Range/Units 08:19 08:19 WBC 19.0 H (3.8-10.6) k/uL Plt Count 88 L (150-450) k/uL Neutrophils # 17.4 H (1.3-7.7) k/uL Lymphocytes # 0.7 L (1.0-4.8) k/uL Potassium 3.3 L (3.5-5.1) mmol/L Carbon Dioxide 35 H (22-30) mmol/L Glucose 115 H (74-99) mg/dL Calcium 8.3 L (8.4-10.2) mg/dL AST 39 H (14-36) U/L Alkaline Phosphatase 222 H (38-126) U/L Total Protein 5.5 L (6.3-8.2) g/dL Albumin 2.8 L (3.5-5.0) g/dL Microbiology - Last 24 Hours (Table) 10/16/22 09:45 Gram Stain - Final Pleural Fluid Body Fluid Culture - Final Diabetes panel 10/21/22 Range/Units 08:19 Sodium 138 (137-145) mmol/L Potassium 3.3 L (3.5-5.1) mmol/L Chloride 101 (98-107) mmol/L Carbon Dioxide 35 H (22-30) mmol/L BUN 12 (7-17) mg/dL Creatinine 0.55 (0.52-1.04) mg/dL Glucose 115 H (74-99) mg/dL Calcium 8.3 L (8.4-10.2) mg/dL AST 39 H (14-36) U/L ALT 32 (4-34) U/L Alkaline Phosphatase 222 H (38-126) U/L Total Protein 5.5 L (6.3-8.2) g/dL Albumin 2.8 L (3.5-5.0) g/dL Calcium panel 10/21/22 Range/Units 08:19 Calcium 8.3 L (8.4-10.2) mg/dL Albumin 2.8 L (3.5-5.0) g/dL Pituitary panel 10/21/22 Range/Units 08:19 Sodium 138 (137-145) mmol/L Potassium 3.3 L (3.5-5.1) mmol/L Chloride 101 (98-107) mmol/L Carbon Dioxide 35 H (22-30) mmol/L BUN 12 (7-17) mg/dL Creatinine 0.55 (0.52-1.04) mg/dL Glucose 115 H (74-99) mg/dL Calcium 8.3 L (8.4-10.2) mg/dL Adrenal panel 10/21/22 Range/Units 08:19 Sodium 138 (137-145) mmol/L Potassium 3.3 L (3.5-5.1) mmol/L Chloride 101 (98-107) mmol/L Carbon Dioxide 35 H (22-30) mmol/L BUN 12 (7-17) mg/dL Creatinine 0.55 (0.52-1.04) mg/dL Glucose 115 H (74-99) mg/dL Calcium 8.3 L (8.4-10.2) mg/dL Total Bilirubin 0.6 (0.2-1.3) mg/dL AST 39 H (14-36) U/L ALT 32 (4-34) U/L Alkaline Phosphatase 222 H (38-126) U/L Total Protein 5.5 L (6.3-8.2) g/dL Albumin 2.8 L (3.5-5.0) g/dL
[2022-10-21] MEDS ORDERED: MELATONIN 3 MG TABLET PO PRN (14:01)
--- NOTE | 2022-10-21 14:16 | P.CN ---
Psychiatric Consult - . Consult date: 10/21/22 Consult:: 10/21/22 13:10 IDENTIFYING DATA: This patient is a 72 yo female, with several medical comorbidities including lung cancer, recurrent probe pleural effusions and DVT and also stroke REASON FOR REFERRAL: Psychiatry was consulted for "competency" HISTORY OF PRESENT ILLNESS: The patient presented to the hospital initially on 09/11 due to stroke like sx. pt has a hx of everal medical comorbidities including lung ca, pleural effusions, DVTs, CVA and global aphasia. pt apparently has been having an increase in her O2 demand and possible aspiration with food. It was decided by surgery that patient would benefit from PEG tube placement to avoid/prevent possible aspiration however according to nurse, she claims that patient was fairly consistent in declining the PEG tube. Family apparnetly is the POA. Client Support Manager also spoke with CERAMICS ENGINEER who again noted that patient has global aphasia and answers to yes no questions are not consistent and she cannot write out her thoughts either. Patient was seen lying in the bed, sql report writer introduced himself. Patient nodded several times to sql report writer. Client Support Manager attempted to ask patient to follow certain directions including giving him a thumbs up however patient shook her head and then nodded her head and did not follow the command. Her responses were also inconsistent in identifying objects around the room and there is an obvious level of comprehension deficit and also communication deficit. Client Support Manager attempted to speak with patient about her condition and also need for possible PEG tube insertion given patient's high aspiration risk and patient shook her head then nodded her head inconsistently. She denies any suicidal or homical ideations, denies any auditory, visual hallucinations. PAST PSYCHIATRIC HISTORY: Patient has a a history of hx of CVA and global aphasia. she did not have any previous [facility] admissions in the chart and is only on prn xanax while in the hospital. Past Medical History: Cancer, Hypertension, Myocardial Infarction (SC), Osteoarthritis (OA) Additional Past Medical History / Comment(s): 2-09-24 stemi, Breast CA, lung nodule/CA Last Myocardial Infarction Date:: 06/14/2017 History of Any Multi-Drug Resistant Organisms: None Reported Past Surgical History: Heart Catheterization With Stent, Tubal Ligation Additional Past Surgical History / Comment(s): 2-18 heart cath w/ stent rca . other past sx:D&C, laser lt eye sx. Past Anesthesia/Blood Transfusion Reactions: Motion Sickness, Postoperative Nausea & Vomiting (PONV) Date of Last Stent Placement:: 06/14/2017 Past Psychological History: No Psychological Hx Reported Smoking Status: Never smoker Past Alcohol Use History: None Reported Past Drug Use History: None Reported ALLERGIES: as per EMR. CHEMICAL DEPENDENCY HISTORY: unable to determine FAMILY PSYCHIATRIC/SUBSTANCE USE HISTORY: unable to determine SOCIAL HISTORY: unable to determine/assess, family is POA MENTAL STATUS EXAM: General Appearance: Patient appears to be thin, short hair, stated age is alert. not following commands, Patient appears to have fair hygiene and grooming wearing hospital gown with intense eye contact. Behavior: Patient is calmly lying in bed without any agitated behavior. not following directions Speech: aphasic Mood/Affect: unable to assess Suicidality/Homicidality: Denies Perceptions: Denies Though content/process: Patient is a phasic Memory and concentration: Does not follow commands, appears to be alert and attending to cooperate. Unable to identify objects. Judgment and insight: Chronically limited/poor IMPRESSIONS: Global aphasia history of CVA PLAN: -At this time patient DOES NOT meet criteria for inpatient psychiatric admission. -Patient DOES NOT have decision making capacity at this time and is unable to reason through and communicate/appreciate the risks, benefits and alternatives to treatment. -Delirium precautions recommended with patient including - avoiding use of narcotics and SORT SUPERVISOR sedatives, limit anticholinergic medications when possible, frequent re-orientation, minimize use of restraints, open window shades during the day and close them at night -Would recommend the following medication changes/additions: xanax prn for anxiety can continue for now, added melatonin 3 mg qhs for sleep. -Would recommend that family file for gaurdianship as this is likely a chronic impairment in cognition and capacity and family should help make decisions for patient. Please also clarify and touch base with Kam Wallis, pt rights advisor on how to furhter proceed given that patients family is already the POA and that patient need more emergent surgical intervention. -Communicated plan to patient's nurse -Psychiatry will sign off at this time -Please contact with any questions.
--- NOTE | 2022-10-21 15:39 | P.PN ---
Subjective Progress Note Date: 10/21/22 Principal diagnosis: Leukocytosis Patient is a 72-year-old female with multiple comorbidities has been in the hospital for more than 10 days currently being evaluated and treatment for possible stroke and noticed to have elevated white count. On today's evaluation that is 10/21/2022, the patient remains to be afebrile patient is breathing comfortably on 2 L nasal cannula oxygen this morning, the patient denies any chest pain or shortness of breath no worsening cough or sputum production no abdominal pain no diarrhea Objective - Vital Signs Vital signs: Vital Signs Temp 97.9 F 10/21/22 04:00 Pulse 117 H 10/21/22 04:00 Resp 20 10/21/22 04:00 BP 150/92 10/21/22 04:00 Pulse Ox 93 L 10/21/22 04:00 FiO2 100 10/19/22 22:35 Intake & Output 10/20/22 10/21/22 10/21/22 18:59 06:59 18:59 Intake Total 240 110 Balance 240 110 Intake: Oral 240 110 Other: Voiding Method Indwelling Catheter Indwelling Catheter # Voids 1 1 # Bowel Movements 1 - Exam GENERAL DESCRIPTION: Elderly female up in the chair in no distress RESPIRATORY SYSTEM: Unlabored breathing , decreased breath sounds at bases HEART: S1 S2 regular rate and rhythm ,no loud murmurs ABDOMEN: Soft , no tenderness EXTREMITIES: No edema feet - Labs CBC & Chem 7: 10/21/22 08:19 10/21/22 08:19 Labs: Abnormal Lab Results - Last 24 Hours (Table) 10/21/22 10/21/22 Range/Units 08:19 08:19 WBC 19.0 H (3.8-10.6) k/uL Plt Count 88 L (150-450) k/uL Neutrophils # 17.4 H (1.3-7.7) k/uL Lymphocytes # 0.7 L (1.0-4.8) k/uL Potassium 3.3 L (3.5-5.1) mmol/L Carbon Dioxide 35 H (22-30) mmol/L Glucose 115 H (74-99) mg/dL Calcium 8.3 L (8.4-10.2) mg/dL AST 39 H (14-36) U/L Alkaline Phosphatase 222 H (38-126) U/L Total Protein 5.5 L (6.3-8.2) g/dL Albumin 2.8 L (3.5-5.0) g/dL Microbiology - Last 24 Hours (Table) 10/16/22 09:45 Gram Stain - Final Pleural Fluid Body Fluid Culture - Final Assessment and Plan (1) Leukocytosis Current Visit: Yes Status: Acute Code(s): D72.829 - ELEVATED WHITE BLOOD CELL COUNT, UNSPECIFIED SNOMED Code(s): 796364313 (2) Pneumonia Current Visit: Yes Status: Acute Code(s): J18.9 - PNEUMONIA, UNSPECIFIED ORGANISM SNOMED Code(s): 699054389 Plan: 1patient with elevated white count and this patient admitted to hospital about 10 days ago predominantly for strokelike symptoms and nonverbal MRI was suspicious for possible embolic phenomena and is being evaluated by cardiology pulmonary service since patient did receive 1 dose of steroids on admission but no steroids since then has been complaining of some sores in the mouth and aurelia rn for possible thrush/oropharyngeal candidiasis, patient did not have any fever urine has been negative chest x-ray bilateral effusion with left greater than right progressively suspicious disease with question of possible fluid related however the patient also complaining of some cough with sputum production underlying pneumonia less likely but not entirely excluded 2-blood cultures has been negative so far patient did have elevated CRP of 7.0 however did have a normal procalcitonin sputum culture has been requested 3-Patient did have off-and-on worsening of respiratory status as well as up and down in the white count concerning for possible recurrent aspiration pneumonia plan is for possible PEG tube placement for which general surgery has seen the patient, patient white count was 19,000 today patient to continue with Zosyn and Zyvox to continue monitor clinical course closely Time with Patient: Less than 30
[2022-10-21] MEDS: POTASSIUM CHLORIDE 10 MEQ in WATER FOR INJECTION 1 100ML.BAG IVPB SCH ×2 (17:51→19:05)
[2022-10-21] MEDS: ALPRAZolam 0.25 MG TAB PO PRN (17:59)
[2022-10-21] MEDS: ATORVASTATIN 40 MG TAB PO SCH (19:57)
[2022-10-21] MEDS ORDERED: FUROSEMIDE 10 MG/ML 4 ML VIAL IV STA (22:55)
[2022-10-21] MEDS ORDERED: NALOXONE 0.4 MG/ML 1 ML VIAL IV PRN (23:18)
[2022-10-21 23:36] LABS: Glucose,Whole Blood 123 mg/dL (70-110)
--- NOTE | 2022-10-21 23:39 | XR ---
EXAM: XR Chest, 1 View CLINICAL HISTORY: ITS.REASON XR Reason: Resp distress TECHNIQUE: Frontal view of the chest. COMPARISON: Chest x-ray 10/21/2022 FINDINGS: Lungs: Slight interval progression in the degree of interstitial and airspace opacities particularly within the right lung. Pleural space: Unchanged pleural effusions. Heart: Unremarkable. No cardiomegaly. IMPRESSION: 1. Slight interval progression in the degree of interstitial and airspace opacities particularly within the right lung. Very little normal aerated lung. 2. Unchanged pleural effusions.
[2022-10-21 23:51] LABS: ABG Base Excess 7.7 mmol/L; ABG HCO3 34 mmol/L (21-25); ABG PCO2 69 mmHg (35-45); ABG PO2 61 mmHg (83-108); ABG TCO2 36 mmol/L (19-24); Allen Test Performed? Yes
[2022-10-22 00:02] LABS: Basophils % (A) 0 %; Eosinophils # (A) 0.1 k/uL (0-0.7); Eosinophils % (A) 1 %; HGB 12.7 gm/dL (11.4-16.0); Lymphocytes # (A) 0.6 k/uL (1.0-4.8); Lymphocytes % (A) 3 %; MCHC 32.4 g/dL (31.0-37.0); MCV 92.6 fL (80.0-100.0); Mean Platelet Volume 10.5; Monocytes # (A) 0.7 k/uL (0-1.0); Monocytes % (A) 3 %; Neutrophils # (A) 19.4 k/uL (1.3-7.7); Neutrophils % (A) 93 %; RBC 4.22 m/uL (3.80-5.40); RDW 13.8 % (11.5-15.5); WBC 20.9 k/uL (3.8-10.6)
[2022-10-22 00:10] LABS: African American GFR (CKD) >90 (>60 ml/min/1.73 sqM); Anion Gap 5 mmol/L; Blood Urea Nitrogen 15 mg/dL (7-17); Calcium 8.4 mg/dL (8.4-10.2); Carbon Dioxide 34 mmol/L (22-30); Chloride 98 mmol/L (98-107); Glucose 130 mg/dL (74-99); Non-African American GFR(CKD) >90 (>60 ml/min/1.73 sqM); Potassium 3.7 mmol/L (3.5-5.1); Sodium 137 mmol/L (137-145)
[2022-10-22 00:18] LABS: Platelet Count 79 k/uL (150-450)
--- NOTE | 2022-10-22 02:01 | P.PN ---
Subjective Progress Note Date: 10/22/22 Principal diagnosis: Acute hypoxemic and hypercapnic respiratory failure 72-year-old female with a history of breast cancer, presents to the emergency department on October 01, complaining of strokelike symptoms. The patient apparently had a slight right-sided facial droop, and was unable to speak. The patient was admitted to the hospital, and we are asked to see her for her chr onic left-sided effusion. The patient has had a thoracentesis in the past, which I believe was done at [facility]. Currently, the patient's on room air, and not receiving any IV fluids. The speech pathologist was in room with her. We saw her in 378. Her medical history includes rest cancer, hypertension, myocardial infarction, osteoarthritis, and apparently the patient is a lifelong nonsmoker. She has had a catheterization with stent placement in her right coronary artery. She appears in no distress. CBC is completely normal. PT 12.3 with an INR 1.2. PTT is 31.6. Electrolytes are normal including sodium, potassium, chloride, carbon dioxide, anion gap, BUN, and creatinine. Glucose 104. The rest of the comprehensive metabolic profile is essentially normal. Urine is negative. Drug screen was negative. Chest x-ray shows a moderate left-sided effusion, and a small right-sided effusion. Brain CT was negative. Angiography, CT, showed no evidence of high-grade stenosis. Brain MRI showed scattered foci of restricted diffusion compatible with acute subacute LINDA. There were multiple vascular distributions. No evidence for mass. I am seeing this patient in follow-up today 10/15/2022, the patient had been admitted back on October 01, mainly for CVA-like symptoms. Pulmonary had signed off the case, and we were re-consulted yesterday for increased oxygen demands. The patient is a 72-year-old female with past medical history significant for right breast ductal carcinoma and metastatic non-small cell lung cancer which she was undergoing treatment for these on an outpatient basis. Patient also has history of recurrent left-sided pleural effusion, hypertension, coronary artery disease with prior stent to the RCA, DVT. Earlier this morning, the patient did develop some respiratory distress and tachycardia. The patient was reportedly in SVT, and started on a Cardizem infusion, which is currently infusing at 10 mg per hour. On my evaluation, the patient is currently sitting in bed, on a 15 L nonrebreather, fairly comfortable. She does not communicate. A chest CT without contrast was done yesterday afternoon showed an new moderate size right pleural effusion and right upper lobe edema and/or acute infiltrate. There was also a stable left-sided pleural effusion, diffuse left lung opacities which could reflect fibrosis, edema or possibly posttreatment changes, and a unchanged 2.5 cm left mid lung mass or neoplasm. Most recent CBC from yesterday shows increasing leukocytosis with a WBC count of 26.4, hemoglobin 14.7, hematocrit 46, platelets 194. She has been afebrile. Empirically covered on Zosyn. Pro calcitonin level was low at 0.02. BMP from yesterday shows a sodium 146, potassium 4, chloride 109, serum CO2 28, BUN 22, creatinine 0.56, glucose 123. Normal saline is currently infusing at KVO. Patient will likely need thoracentesis. Patient was reevaluated today on 10/16/2022, I was notified about this patient yesterday that she was having worsening shortness of breath, hence I recommended that the patient goes on BiPAP, and transferred to ICU. I saw this patient today, she has been off anticoagulation therapy for the last 2 days, hence I would proceed with thoracentesis on the right side. Indeed I did do a thoracentesis and I was able to remove 1500 mL of slightly serosanguineous fluid from the right pleural space. Patient felt much better and the chest x-ray showed significant improvement nonetheless the patient continues to have significant airspace disease possibly pneumonia on the left side, and possibly some small pleural effusions. This was not large enough on ultrasound to consider left-sided thoracentesis. Patient remains on multiple medications, remains on Ventimask, overall status is marginal. Remains on antibiotics, continues to have leukocytosis. Blood cultures remain negative since 10/11 Sig nificant airspace disease and opacities noted throughout the left lung. Reevaluated today on 10/17/2022, remains in the ICU, on 5 L nasal cannula, pulmonary status is much better today compared to yesterday prior to thoracentesis. Patient is requiring less FiO2, she is not in any distress, back on her anticoagulation treatment, WBC count today is 20 hemoglobin 12.7 and let us are normal renal profile is normal the effusion which I drained yesterday seems to be exudative in nature very high protein and very high LDH, could be parapneumonic or could be malignant. Cytology is pending. Will recommend transferring the patient out of the ICU to a cardiac floor. Reevaluated on 10/18/2022, patient remains on 5 L nasal cannula, doing well, not in any distress. Chest x-ray is showing worsening of airspace disease in the left lung, and recurrence of right-sided pleural effusion, nonetheless the patient is clinically stable, and reviewed the results of the pleural effusion that was drained on 10/16, it is exudative, with significantly elevated protein and significantly elevated LDH, I suspect the fluid will be malignant unless otherwise. Cytology is pending. Hence no plans to repeat thoracentesis for now until a definitive diagnosis is hopefully made in the next couple of days was cytology is back. I am seeing this patient in follow-up today 10/22/2022, as the patient's respiratory status has declined requiring transfer to the intensive care unit and BiPAP support. The patient was initially admitted to the hospital back on October 01 mainly for CVA-like symptoms. Patient was last seen by pulmonary on October 18. Our initial involvement was for recurrent malignant pleural effusion s. Patient had recent thoracentesis for right-sided pleural effusion on October 16, and cytology results are consistent with metastatic adenocarcinoma. Since pulmonary had signed off the case, apparently there have been concerns that the patient has been aspirating on her food, and there were plans for PEG tube insertion tomorrow. Despite the patient's likely aspiration, and ordered dysphagia level II diet, family has been reportedly bringing the patient food from home. Patient has been reportedly refusing PEG tube insertion, however, was deemed incompetent to make own decisions by psychiatry. Patient's son recently agreed for PEG tube insertion. The patient is quite debilitated and has severe right-sided hemiparesis. She has obvious right-sided facial droop, right arm is flaccid, and right lower extremity is weak. She is aphasic. Last night, the patient was in some respiratory distress, and a rapid response was called. On my evaluation, the patient was on a 15 L high flow cannula and 15 L nonrebreather mask. The patient was tachypneic, and appeared in some moderate respiratory distress. Chest x-ray showed worsening diffuse bilateral airspace disease with bilateral pleural effusions and marked left apical pleural thickening consistent with diffuse pneumonia or CHF. The patient was transferred back to the intensive care unit and reportedly became less responsive. At that time, ABG showed a pO2 of 61, pCO2 69, pH of 7.3. Patient was placed on BiPAP support 10/5 and FiO2 of 100%. The patient immediately appeared more comfortable on the BiPAP. Respiratory rate now is in the high 20s and achieving tidal volume around 350 ML's. CBC was repeated and shows a WBC count of 20.9, hemoglobin 12.7, hematocrit 39, platelets 79. BMP shows sodium 137, potassium 3.7, chloride 98, serum CO2 34, BUN 15, creatinine 0.59, glucose 123. Patient's NT proBNP was mildly elevated at 1670. The patient was given a one-time dose of Lasix. Patient is also on Cardizem at 10 mg per hour for SVT. Normal saline is at KVO. What pressure remained stable, and she has not required any vasopressors. Patient is empirically covered on Zosyn. Patient has remained afebrile. Patient will be monitored in the intensive care unit. I did clarify patient's CODE STATUS with her son, and she is a full code with intubation if needed. Objective - Vital Signs Vital signs: Vital Signs Temp 96.9 F L 10/22/22 00:00 Pulse 68 10/22/22 00:00 Resp 33 H 10/22/22 00:00 BP 141/73 10/22/22 00:00 Pulse Ox 90 L 10/22/22 00:00 FiO2 100 10/22/22 00:23 Intake & Output 10/21/22 10/21/22 10/22/22 06:59 18:59 06:59 Intake Total 110 Balance 110 Weight 68.7 kg Intake: Oral 110 Other: Voiding Method Indwelling Catheter Indwelling Catheter Diaper Incontinent # Voids 1 1 # Bowel Movements 1 - Exam GENERAL EXAM: Alert but aphasic, 72-year-old white female, in a moderate degree of respiratory distress. HEAD: Normocephalic and atraumatic EYES: Normal reaction of pupils, equal size. NOSE: Clear with pink turbinates. THROAT: No erythema or exudates. NECK: No masses, no JVD. CHEST: No chest wall deformity. LUNGS: Equal air entry with diffuse coarse rhonchi and scattered crackles. On BiPAP support of 10/5 and an FiO2 of 100%. She is less tachypneic. CVS: S1 and S2 normal with no audible murmur, irregular rhythm. No extra heart sounds. Heart rate is currently 72 bpm ABDOMEN: No hepatosplenomegaly, active bowel sounds, no guarding or rigidity. SPINE: No scoliosis or deformity SKIN: No rashes CENTRAL NERVOUS SYSTEM: Severe right-sided hemiparesis; clear right-sided facial droop, right arm is flaccid, and there is right lower extremity weakness. Tone and strength on the left side 5/5 EXTREMITIES: There is no peripheral edema, clubbing, or cyanosis. Peripheral pulses are intact. - Labs CBC & Chem 7: 10/21/22 23:42 10/21/22 23:42 Labs: Abnormal Lab Results - Last 24 Hours (Table) 10/21/22 10/21/22 10/21/22 Range/Units 08:19 08:19 23:33 WBC 19.0 H (3.8-10.6) k/uL Plt Count 88 L (150-450) k/uL Neutrophils # 17.4 H (1.3-7.7) k/uL Lymphocytes # 0.7 L (1.0-4.8) k/uL ABG pH (7.35-7.45) ABG pCO2 (35-45) mmHg ABG pO2 (83-108) mmHg ABG HCO3 (21-25) mmol/L ABG Total CO2 (19-24) mmol/L ABG O2 Saturation (94-97) % Potassium 3.3 L (3.5-5.1) mmol/L Carbon Dioxide 35 H (22-30) mmol/L Glucose 115 H (74-99) mg/dL POC Glucose (mg/dL) 123 H (70-110) mg/dL Calcium 8.3 L (8.4-10.2) mg/dL AST 39 H (14-36) U/L Alkaline Phosphatase 222 H (38-126) U/L Total Protein 5.5 L (6.3-8.2) g/dL Albumin 2.8 L (3.5-5.0) g/dL 10/21/22 10/21/22 10/21/22 Range/Units 23:42 23:42 23:43 WBC 20.9 H (3.8-10.6) k/uL Plt Count 79 L (150-450) k/uL Neutrophils # 19.4 H (1.3-7.7) k/uL Lymphocytes # 0.6 L (1.0-4.8) k/uL ABG pH 7.30 L (7.35-7.45) ABG pCO2 69 H (35-45) mmHg ABG pO2 61 L (83-108) mmHg ABG HCO3 34 H (21-25) mmol/L ABG Total CO2 36 H (19-24) mmol/L ABG O2 Saturation 90.0 L (94-97) % Potassium (3.5-5.1) mmol/L Carbon Dioxide 34 H (22-30) mmol/L Glucose 130 H (74-99) mg/dL POC Glucose (mg/dL) (70-110) mg/dL Calcium (8.4-10.2) mg/dL AST (14-36) U/L Alkaline Phosphatase (38-126) U/L Total Protein (6.3-8.2) g/dL Albumin (3.5-5.0) g/dL Microbiology - Last 24 Hours (Table) 10/16/22 09:45 Gram Stain - Final Pleural Fluid Body Fluid Culture - Final Assessment and Plan Assessment: Acute/subacute CVA, with clear-cut right-sided hemiparesis and expressive aphasia. Brain MRI on 10/01 demonstrated scattered foci of restricted diffusion compatible with acute/subacute CVA. There were concerns for embolic stroke, and transesophageal echocardiogram done on October 10 shows no evidence of PFO or shun ting or cardiac thrombus. Failed Xarelto. Eliquis and Plavix are currently on hold for possible PEG tube insertion tomorrow. Bilateral pleural effusions, cytology results from thoracentesis done on October 16 is consistent with metastatic adenocarcinoma Possible aspiration with concerns of aspiration pneumonia, scheduled to undergo PEG tube placement tomorrow Acute hypoxemic and hypercapnic respiratory failure, secondary to above. Currently on BiPAP with settings 10/5 and FiO2 100%. Chest x-ray showed worsening diffuse bilateral airspace disease with bilateral pleural effusions and marked left apical pleural thickening consistent with diffuse pneumonia or CHF. Leukocytosis, secondary to above Thrombocytopenia Breast cancer, following with oncology. on Arimidex Metastatic non-small cell lung cancer, following with oncology. On Tagrisso Expressive aphasia History of recurrent left sided pleural effusion Benign essential hypertension CAD, with previous stent placement to the right coronary artery. History of DVT History of atrial fibrillation, Vianney currently on hold Lifelong nonsmoker Plan: Patient's medications, labs, chest x-ray reviewed Patient was transferred back to the intensive care unit Patient was placed on BiPAP with settings 10/5 and an FiO2 of 100% FiO2 may be titrated down to maintain oxygen saturation 92% or greater NT proBNP was slightly elevated at 1670, and was given a dose of Lasix. Patient is empirically covered on a combination of Zosyn and Zyvox Check procalcitonin Infectious disease is following Deemed incompetent to make her own medical decisions. She was tentatively scheduled for PEG tube placement tomorrow; however, developed some respiratory distress last night, and had to be transferred to the intensive care unit. Nothing by mouth Cardizem infusing at 10 mg per hour per cardiology Protonix for GI prophylaxis Patient will be monitored in the intensive care unit. I did clarify patient's CODE STATUS with her son, and she is a full code with intubation if needed. Patient's overall prognosis is poor. I have personally seen and examined the patient, performed the documentation and the assessment and plan as written. Number of minutes spent on the visit:20 Time with Patient: Greater than 30
[2022-10-22 04:14] LABS: Basophils % (A) 0 %; Eosinophils # (A) 0.1 k/uL (0-0.7); Eosinophils % (A) 0 %; HCT 35.9 % (34.0-46.0); HGB 11.8 gm/dL (11.4-16.0); Lymphocytes # (A) 0.6 k/uL (1.0-4.8); Lymphocytes % (A) 3 %; MCH 30.2 pg (25.0-35.0); MCHC 32.8 g/dL (31.0-37.0); Mean Platelet Volume 10.6; Monocytes # (A) 0.8 k/uL (0-1.0); Monocytes % (A) 4 %; Neutrophils # (A) 18.2 k/uL (1.3-7.7); Neutrophils % (A) 92 %; RDW 13.9 % (11.5-15.5); WBC 19.7 k/uL (3.8-10.6)
[2022-10-22 04:18] LABS: Platelet Count 75 k/uL (150-450)
[2022-10-22 04:27] LABS: ALT 27 U/L (4-34); AST 31 U/L (14-36); African American GFR (CKD) >90 (>60 ml/min/1.73 sqM); Albumin 2.4 g/dL (3.5-5.0); Alkaline Phosphatase 169 U/L (38-126); Anion Gap 2 mmol/L; Blood Urea Nitrogen 15 mg/dL (7-17); Calcium 7.9 mg/dL (8.4-10.2); Carbon Dioxide 38 mmol/L (22-30); Chloride 97 mmol/L (98-107); Glucose 100 mg/dL (74-99); Non-African American GFR(CKD) 87 (>60 ml/min/1.73 sqM); Potassium 3.3 mmol/L (3.5-5.1); Sodium 137 mmol/L (137-145); Total Bilirubin 0.5 mg/dL (0.2-1.3); Total Protein 4.8 g/dL (6.3-8.2)
[2022-10-22] MEDS: SODIUM CHLORIDE 0.9% 1,000 ML IV SCH (07:00)
--- NOTE | 2022-10-22 07:31 | XR ---
EXAMINATION TYPE: XR chest 1V portable DATE OF EXAM: 10/22/2022 COMPARISON: 10/21/2022 HISTORY: Shortness of breath TECHNIQUE: Single frontal view of the chest is obtained. FINDINGS: Bilateral diffuse consolidation and marked left apical pleural thickening stable. Bilatera l pleural effusions with limited inspiration. Atherosclerotic change aorta. No pneumothorax. Arthropa thy of the shoulders. IMPRESSION: Diffuse bilateral airspace disease stable asymmetric left pleural thickening. Correlate for pulmonary edema versus diffuse pneumonia.
[2022-10-22] MEDS: carvediloL 3.125 MG TAB PO SCH ×2 (07:41→16:39)
[2022-10-22] MEDS: PIPERACILLIN-TAZOBACTAM 3.375 GM in SODIUM CHLORIDE 0.9% 100 ML IVPB SCH ×3 (08:06→23:59)
[2022-10-22] MEDS: POTASSIUM CHLORIDE 10 MEQ in WATER FOR INJECTION 1 100ML.BAG IVPB SCH ×10 (08:06→21:31)
[2022-10-22] MEDS: PANTOPRAZOLE 40 MG/10 ML VIAL IVP SCH (08:53)
[2022-10-22] MEDS: FUROSEMIDE 10 MG/ML 4 ML VIAL IV SCH ×2 (08:53→20:01)
[2022-10-22] MEDS: OSIMERTINIB 80 MG PO SCH (08:57)
[2022-10-22] MEDS: LACTULOSE 20 GM/30 ML CUP PO SCH ×4 (08:57→19:54)
[2022-10-22] MEDS: ANASTROZOLE 1 MG TAB PO SCH (08:57)
[2022-10-22] MEDS: DOCUSATE 100 MG CAP PO SCH ×2 (08:57→19:54)
[2022-10-22] MEDS: lisinopriL 5 MG TAB PO SCH ×2 (08:57→19:54)
[2022-10-22] MEDS: DILTIAZEM 125 MG in SODIUM CHLORIDE 0.9% 100 ML IV SCH ×3 (09:11→21:30)
--- NOTE | 2022-10-22 09:12 | P.PN ---
Subjective Progress Note Date: 10/21/22 10/21/2022: Patient was seen for a follow-up. Patient is laying comfortably in the bed. Patient clinically unchanged. Still with significant aphasia, right hemiparesis. Patient apparently has admitted for PEG tube placement, which will be done tomorrow. 10/20/2022: Patient was seen for a follow-up. Patient is sitting comfortably in the recliner. Patient continues to be significantly aphasic, right hemiparetic. Patient is declining NG tube or PEG tube placement. She is now on regular floor 357. 10/15/2022: Patient was seen for follow-up. Patient since last seen, was followed up by Dr. Amadou Dye. Please refer to his note for details. Patient at present is in ICU in bed #264. She was transferred to the ICU because of large left pleural effusion. Patient also had runs of SVT last night for which an A-team was activated. 10/07/2022: Patient has developed new focal symptoms as of this morning. Patient has developed right arm weakness, which is very noticeable. This is an acute change. Patient continues to be severely expressively aphasic. Her comprehension appears to be slightly worse today. Patient admits to having headache. 10/06/2022: Patient was seen for a follow-up. Patient is sitting comfortably in the recliner. Denies any headache. Family members were not present today. Patient continues to be severely aphasic with anarthria. Telemetry monitoring showing sinus rhythm. 10/05/2022: Patient initially seen by Dr. Amadou Dye. Please refer to his note for details. Patient is a 72-year-old right-handed female with history of stage IV lung cancer, came with global aphasia and muteness. Patient's daughter was present, who provided with history. On Wednesday evening 09/30/2022 at 7 PM, while cutting vegetables, she stopped getting the jaycob and started drooling for 15 minutes. She was brought to the hospital and her speech returned back to baseline. She was sent home, and next day on at 9:30 AM, she stopped talking and has never regained speech yet. MRI of the brain revealed multiple bilateral hemispheric stroke, left slightly more than right. Patient has history of DVT 3 weeks ago and atrial fibrillation and was on Xarelto but appears failed. Patient was started on broad neck side yesterday. JESUS is p ending. Patient's daughter was also present, who states that patient is cognitively intact. She understands everything, but cannot express herself which makes her very frustrated. Some of the workup during his hospital visit consisted of: Lipid panel triglycerides 79, cholesterol is 204, LDLs 128, HDL 59. CT head is reported as no acute intracranial process. I personally reviewed that a CT and there is no acute or subacute ischemia seen. There is no mass affect. CT angiography of the head and neck was reported as no evidence of dissection of the cervical internal carotid arteries or vertebral artery or any evidence of significant stenosis at the carotid bifurcation. No evidence of intracranial high-grade stenosis or intracranial aneurysm. Intracranial atherosclerosis of the internal carotid artery without hemodynamic stenosis. Right and increased size of left pleural effusion. There is a pleural sign in the left which could represent empyema. Persistent that scattered nodular opacity likely representing metastatic disease from the patient known malignancy. EKG is reported as sinus rhythm. Low QRS voltage [facility] Drug screen is negative. MRI brain is reported as scattered foci of restricted diffusion compatible with acute/subacute CVA. Given multiple vascular distribution correlate for embolic phenomena. No abnormal postcontrast enhancement the, no evidence for mass. Nonspecific white matter changes likely secondary to chronic small vessel ischemic disease. I personally reviewed the MRI and I agree with the report. Patient has restriction diffusion over bilateral frontal left more than the right with right parietal occipital region The echo was reported as suboptimal acoustic windows. Contrast echo study performed. Borderline normal left ventricle systolic function septal bulge. There is septal and inferior basal hypokinesis. Routine EEG is normal. There is no focal slowing, epileptiform discharges or seizure on the EEG. Venous duplex of the upper and lower extremities negative Objective - Vital Signs Vital signs: Vital Signs Temp 98.0 F 10/21/22 08:30 Pulse 80 10/21/22 11:10 Resp 16 10/21/22 11:10 BP 160/100 10/21/22 11:10 Pulse Ox 89 L 10/21/22 11:10 FiO2 100 10/19/22 22:35 Intake & Output 10/20/22 10/21/22 10/21/22 18:59 06:59 18:59 Intake Total 240 110 Balance 240 110 Weight 68.7 kg Intake: Oral 240 110 Other: Voiding Method Indwelling Catheter Indwelling Catheter Indwelling Catheter # Voids 1 1 # Bowel Movements 1 1 - Exam Patient is alert and awake, laying comfortably in the bed. Patient has oxygen by nasal cannula. Patient is severely aphasic. Mute, not able to speak any words. She could not speak out numbers or alphabets. She cannot repeat. She was not able to follow directions like pointing to the window, the door or the ceiling. Patient not able to name any object like fork, tissue paper. Cranial nerves significant for pupils equal, round and reacting. Patient would not understand directions to check for visual patel. She would nod her head yes for everything. Patient has right facial asymmetry. Tongue protrudes to the midline. Patient is flaccid in the right upper limb with no movement. The strength is normal in the left upper limb. Her strength is normal in the ankles, 5-right, 5 left. - Labs CBC & Chem 7: 10/22/22 03:42 10/22/22 03:42 Labs: Abnormal Lab Results - Last 24 Hours (Table) 10/21/22 10/21/22 Range/Units 08:19 08:19 WBC 19.0 H (3.8-10.6) k/uL Plt Count 88 L (150-450) k/uL Neutrophils # 17.4 H (1.3-7.7) k/uL Lymphocytes # 0.7 L (1.0-4.8) k/uL Potassium 3.3 L (3.5-5.1) mmol/L Carbon Dioxide 35 H (22-30) mmol/L Glucose 115 H (74-99) mg/dL Calcium 8.3 L (8.4-10.2) mg/dL AST 39 H (14-36) U/L Alkaline Phosphatase 222 H (38-126) U/L Total Protein 5.5 L (6.3-8.2) g/dL Albumin 2.8 L (3.5-5.0) g/dL Microbiology - Last 24 Hours (Table) 10/16/22 09:45 Gram Stain - Final Pleural Fluid Body Fluid Culture - Final Assessment and Plan Assessment: Recurrent ischemic strokes. Patient has failed Pradaxa, Xarelto in the recent past with breakthrough strokes. Patient at present is severely aphasic, right hemiplegic, mainly involving the facial brachial region. Dysphagia, due to above. Acute ischemic stroke (over bilateral hemisphere: bilateral frontal L>R, right parietal and occipital region). Stroke appears embolic in nature: Probable cardioembolic. Patient currently on Eliquis. Leukocytosis and possible pneumonia. Patient on Zosyn and Linezolid, ID on board. History of left lung cancer History of right breast cancer History of recent DVT about 3 weeks ago and was on Xarelto Left Pleural effusion on CTA History of pleural effusion, status post thoracentesis 1300 serosanguineous fluid removed History of atrial fibrillation and in past was on anticoagulation then stopped then after DVT 3 weeks ago restarted it Plan: Patient had recurrent ischemic strokes. CTA of head and neck showed no significant change from recent CTA study. No LVO. Patient has failed Xarelto, and now also Pradaxa. Patient is also on Plavix. Patient now started on Eliquis. Patient to undergo PEG placement in the morning. Patient is agreeing for PEG tube placement now. Psychiatry has seen the patient, and patient is not competent to make decision. JESUS performed 10/10/2022 revealed normal appearance left atrial appendage. Normal left ventricular size and systolic function. No shunting across the intra-atrial septum. Mild mitral and tricuspid regurgitation. Aortic valve sclerosis without stenosis. Continue Lipitor 40 mg daily at bedtime second stroke prophylaxis Routine EEG normal. Cardiac monitoring PT OT and BUSINESS EDUCATION TEACHER are consulted. Patient is declining feeding tube. She is at risk for aspiration. Cardiology is on board. Pulmonary team is consulted for pleural effusion and history of lung cancer We'll defer the rest of the medical management to primary team For DVT prophylaxis: Eliquis. Neurologically clear for discharge to rehab facility. Neurology will follow sporadically.
[2022-10-22 09:35] LABS: Appearance,BF Blood Tinged
[2022-10-22] MEDS: LINEZOLID 600 MG in DEXTROSE/WATER 1 300ML.BAG IVPB SCH ×2 (10:15→20:03)
--- NOTE | 2022-10-22 11:04 | P.PN ---
Subjective Progress Note Date: 10/22/22 CHIEF COMPLAINT: CVA and aspirating HISTORY OF PRESENT ILLNESS: Patient had to be transferred to the ICU yesterday due to worsening respiratory status. She is on BiPAP. Followed by pulmonary service. There is concerns that she continues to aspirate. Patient sitting in bed comfortably. Afebrile. White count down from 20-19. Chest x-ray showing diffuse bilateral airspace disease stable asymmetric left pleural thickening. Correlate for pulmonary edema versus diffuse pneumonia. Patient's potassium is 3.3 and being replaced. PHYSICAL EXAM: VITAL SIGNS: Reviewed. GENERAL: Well-developed in no acute distress. Has Bipap on ABDOMEN: Soft. Nondistended. Nontender. NEUROLOGIC: Pleasantly confused. ASSESSMENT: 1. Ischemic stroke 2. Recurrent aspiration and severe protein calorie malnutrition 3. Hypoxia PLAN: -Continue ICU management -PEG tube placement for today canceled due to patient's respiratory status -Continue supportive care Physician Wind Farm Engineer note has been reviewed by physician. Signing provider agrees with the documented findings, assessment, and plan of care. I have personally seen and examined the patient, reviewed the SPOOL CARRIER /PAs history, exam and MDM and agree with the assessment and plan as written. Based on total visit time, I have performed more than 50% of the visit. As above: Patient on BiPAP. Looks more comfortable now. Hold PEG tube until pulmonary status improved. Objective - Vital Signs Vital signs: Vital Signs Temp 98 F 10/22/22 08:00 Pulse 73 10/22/22 09:30 Resp 24 10/22/22 09:30 BP 127/59 10/22/22 09:30 Pulse Ox 96 10/22/22 09:30 FiO2 70 10/22/22 08:00 Intake & Output 10/21/22 10/22/22 10/22/22 18:59 06:59 18:59 Intake Total 110 265 360 Output Total 500 Balance 110 265 -140 Weight 68.7 kg 70.8 kg Intake: IV 140 160 Piperacillin-Tazobactam 3 100 .375 gm In Sodium Chloride 0.9% 100 ml @ 25 mls/hr IVPB Q8HR [facility] Rx# :[id number] Sodium Chloride 0.9% 1, 140 60 000 ml @ 20 mls/hr IV . Q24H [facility] Rx#:[id number] Intake, IV Titration 125 200 Amount Diltiazem 125 mg In 125 Sodium Chloride 0.9% 100 ml @ 10 MG/HR 10 mls/hr IV .[id number] [facility] Rx#: [id number] Potassium Chloride 10 meq 200 In Water For Injection 1 100ml.bag @ 100 mls/hr IVPB Q1HR [facility] Rx#: [id number] Oral 110 Output: Urine 500 Other: Voiding Method Indwelling Catheter Diaper External Catheter # Voids 1 0 1 # Bowel Movements 1 - Labs CBC & Chem 7: 10/22/22 03:42 10/22/22 03:42 Labs: Abnormal Lab Results - Last 24 Hours (Table) 10/21/22 10/21/22 10/21/22 Range/Units 23:33 23:42 23:42 WBC 20.9 H (3.8-10.6) k/uL Plt Count 79 L (150-450) k/uL Neutrophils # 19.4 H (1.3-7.7) k/uL Lymphocytes # 0.6 L (1.0-4.8) k/uL ABG pH (7.35-7.45) ABG pCO2 (35-45) mmHg ABG pO2 (83-108) mmHg ABG HCO3 (21-25) mmol/L ABG Total CO2 (19-24) mmol/L ABG O2 Saturation (94-97) % Potassium (3.5-5.1) mmol/L Chloride (98-107) mmol/L Carbon Dioxide 34 H (22-30) mmol/L Glucose 130 H (74-99) mg/dL POC Glucose (mg/dL) 123 H (70-110) mg/dL Calcium (8.4-10.2) mg/dL Alkaline Phosphatase (38-126) U/L Total Protein (6.3-8.2) g/dL Albumin (3.5-5.0) g/dL Procalcitonin (0.02-0.09) ng/mL 10/21/22 10/22/22 10/22/22 Range/Units 23:43 03:42 03:42 WBC 19.7 H (3.8-10.6) k/uL Plt Count 75 L (150-450) k/uL Neutrophils # 18.2 H (1.3-7.7) k/uL Lymphocytes # 0.6 L (1.0-4.8) k/uL ABG pH 7.30 L (7.35-7.45) ABG pCO2 69 H (35-45) mmHg ABG pO2 61 L (83-108) mmHg ABG HCO3 34 H (21-25) mmol/L ABG Total CO2 36 H (19-24) mmol/L ABG O2 Saturation 90.0 L (94-97) % Potassium 3.3 L (3.5-5.1) mmol/L Chloride 97 L (98-107) mmol/L Carbon Dioxide 38 H (22-30) mmol/L Glucose 100 H (74-99) mg/dL POC Glucose (mg/dL) (70-110) mg/dL Calcium 7.9 L (8.4-10.2) mg/dL Alkaline Phosphatase 169 H (38-126) U/L Total Protein 4.8 L (6.3-8.2) g/dL Albumin 2.4 L (3.5-5.0) g/dL Procalcitonin (0.02-0.09) ng/mL 10/22/22 Range/Units 06:00 WBC (3.8-10.6) k/uL Plt Count (150-450) k/uL Neutrophils # (1.3-7.7) k/uL Lymphocytes # (1.0-4.8) k/uL ABG pH (7.35-7.45) ABG pCO2 (35-45) mmHg ABG pO2 (83-108) mmHg ABG HCO3 (21-25) mmol/L ABG Total CO2 (19-24) mmol/L ABG O2 Saturation (94-97) % Potassium (3.5-5.1) mmol/L Chloride (98-107) mmol/L Carbon Dioxide (22-30) mmol/L Glucose (74-99) mg/dL POC Glucose (mg/dL) (70-110) mg/dL Calcium (8.4-10.2) mg/dL Alkaline Phosphatase (38-126) U/L Total Protein (6.3-8.2) g/dL Albumin (3.5-5.0) g/dL Procalcitonin 0.11 H (0.02-0.09) ng/mL Microbiology - Last 24 Hours (Table) 10/16/22 09:45 Gram Stain - Final Pleural Fluid Body Fluid Culture - Final
[2022-10-22] MEDS: LORazepam 2 MG/ML INJ IV PRN (14:20)
--- NOTE | 2022-10-22 14:55 | P.PN ---
Subjective Progress Note Date: 10/22/22 Principal diagnosis: History of breast cancer, metastatic lung cancer, on treatment for both. Admitted with CVA symptoms Patient has been transferred to ICU due to decreased respiratory status. She has been placed on bipap. Pt has improved on bipap, oxygen saturation 95%. Chest x- ray revealed diffuse bilateral airspace disease, stable asymmetric left pleural thickening. Correlate for pulmonary edema versus diffuse pneumonia. Patient has been started on Zosyn. S/P left-sided thoracentesis with 1300 mL removed. Cytology positive for metastatic lung adenocarcinoma. Objective - Vital Signs Vital signs: Vital Signs Temp 98 F 10/22/22 12:00 Pulse 70 10/22/22 13:00 Resp 24 10/22/22 13:00 BP 118/64 10/22/22 13:00 Pulse Ox 93 L 10/22/22 13:00 FiO2 70 10/22/22 12:00 Intake & Output 10/21/22 10/22/22 10/22/22 18:59 06:59 18:59 Intake Total 110 265 820 Output Total 1400 Balance 110 265 -580 Weight 68.7 kg 70.8 kg Intake: IV 140 220 Piperacillin-Tazobactam 3 100 .375 gm In Sodium Chloride 0.9% 100 ml @ 25 mls/hr IVPB Q8HR [facility] Rx# :[id number] Sodium Chloride 0.9% 1, 140 120 000 ml @ 20 mls/hr IV . Q24H [facility] Rx#:[id number] Intake, IV Titration 125 600 Amount Diltiazem 125 mg In 125 Sodium Chloride 0.9% 100 ml @ 10 MG/HR 10 mls/hr IV .[id number] [facility] Rx#: [id number] Linezolid 600 mg In 200 Dextrose/Water 1 300ml. bag @ 150 mls/hr IVPB Q12HR [facility] Rx#:[id number] Potassium Chloride 10 meq 400 In Water For Injection 1 100ml.bag @ 100 mls/hr IVPB Q1HR [facility] Rx#: [id number] Oral 110 Output: Urine 1400 Other: Voiding Method Indwelling Catheter Diaper Indwelling Catheter # Voids 1 0 1 # Bowel Movements 1 - Constitutional General appearance: Present: average body habitus, no acute distress - EENT Eyes: Present: anicteric sclerae, EOMI ENT: Present: hearing grossly normal - Respiratory Details: breathing mildly labored - Cardiovascular Details: skin warm and dry - Integumentary Integumentary: Absent: cyanotic, rash - Neurologic Neurologic Comment(s): aphasia - Psychiatric Psychiatric: Present: A&O x's 3 - Labs CBC & Chem 7: 10/22/22 03:42 10/22/22 03:42 Labs: Abnormal Lab Results - Last 24 Hours (Table) 10/21/22 10/21/22 10/21/22 Range/Units 23:33 23:42 23:42 WBC 20.9 H (3.8-10.6) k/uL Plt Count 79 L (150-450) k/uL Neutrophils # 19.4 H (1.3-7.7) k/uL Lymphocytes # 0.6 L (1.0-4.8) k/uL ABG pH (7.35-7.45) ABG pCO2 (35-45) mmHg ABG pO2 (83-108) mmHg ABG HCO3 (21-25) mmol/L ABG Total CO2 (19-24) mmol/L ABG O2 Saturation (94-97) % Potassium (3.5-5.1) mmol/L Chloride (98-107) mmol/L Carbon Dioxide 34 H (22-30) mmol/L Glucose 130 H (74-99) mg/dL POC Glucose (mg/dL) 123 H (70-110) mg/dL Calcium (8.4-10.2) mg/dL Alkaline Phosphatase (38-126) U/L Total Protein (6.3-8.2) g/dL Albumin (3.5-5.0) g/dL Procalcitonin (0.02-0.09) ng/mL 10/21/22 10/22/22 10/22/22 Range/Units 23:43 03:42 03:42 WBC 19.7 H (3.8-10.6) k/uL Plt Count 75 L (150-450) k/uL Neutrophils # 18.2 H (1.3-7.7) k/uL Lymphocytes # 0.6 L (1.0-4.8) k/uL ABG pH 7.30 L (7.35-7.45) ABG pCO2 69 H (35-45) mmHg ABG pO2 61 L (83-108) mmHg ABG HCO3 34 H (21-25) mmol/L ABG Total CO2 36 H (19-24) mmol/L ABG O2 Saturation 90.0 L (94-97) % Potassium 3.3 L (3.5-5.1) mmol/L Chloride 97 L (98-107) mmol/L Carbon Dioxide 38 H (22-30) mmol/L Glucose 100 H (74-99) mg/dL POC Glucose (mg/dL) (70-110) mg/dL Calcium 7.9 L (8.4-10.2) mg/dL Alkaline Phosphatase 169 H (38-126) U/L Total Protein 4.8 L (6.3-8.2) g/dL Albumin 2.4 L (3.5-5.0) g/dL Procalcitonin (0.02-0.09) ng/mL 10/22/22 Range/Units 06:00 WBC (3.8-10.6) k/uL Plt Count (150-450) k/uL Neutrophils # (1.3-7.7) k/uL Lymphocytes # (1.0-4.8) k/uL ABG pH (7.35-7.45) ABG pCO2 (35-45) mmHg ABG pO2 (83-108) mmHg ABG HCO3 (21-25) mmol/L ABG Total CO2 (19-24) mmol/L ABG O2 Saturation (94-97) % Potassium (3.5-5.1) mmol/L Chloride (98-107) mmol/L Carbon Dioxide (22-30) mmol/L Glucose (74-99) mg/dL POC Glucose (mg/dL) (70-110) mg/dL Calcium (8.4-10.2) mg/dL Alkaline Phosphatase (38-126) U/L Total Protein (6.3-8.2) g/dL Albumin (3.5-5.0) g/dL Procalcitonin 0.11 H (0.02-0.09) ng/mL - Imaging and Cardiology Chest x-ray: report reviewed Assessment and Plan (1) Cancer of lung Current Visit: Yes Status: Acute Priority: High Code(s): C34.90 - MALIGNANT NEOPLASM OF UNSP PART OF UNSP BRONCHUS OR LUNG SNOMED Code(s): 750174874 (2) Cerebrovascular accident (CVA) Current Visit: Yes Status: Acute Priority: High Code(s): I63.9 - CEREBRAL INFARCTION, UNSPECIFIED SNOMED Code(s): 239535705 (3) History of breast cancer Current Visit: Yes Status: Chronic Priority: High Code(s): Z85.3 - PERSONAL HISTORY OF MALIGNANT NEOPLASM OF BREAST SNOMED Code(s): 109377738 Plan: Recurrent CVA -JESUS neg -Was on xarelto for DVT when she developed CVA. Now on eliquis and plavix. No evidence of bleeding, hemoglobin stable -Antiphospholipid ab work up neg. Patient is okay to continue on eliquis for anticoagulation. Regarding the lupus anticoagulant, being positive while on anticoagulation is not considered a true positive. If it is neg, it is a true negative. It will be rechecked outpatient. Breast cancer -cont arimidex. 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 Cytology positive for metastatic lung adenocarcinoma, indicating disease progression. Findings discussed with pt. -F/U with Medical Onc after rehab and pt acutely recovers to discuss treatment options Pleural effusions/SOB: -Chest x-ray revealed [id number] right residual pleural effusion with adjacent atelectasis and/or consolidation. No appreciable pneumothorax. The appearance of the left lung is unchanged. -Patient underwent right-sided thoracentesis with Dr. Ambrose and 1300 mL was removed. Cytology positive for metastatic lung adenocarcinoma -Patient has been transferred to ICU due to decreased respiratory status. She has been placed on bipap. Pt has improved on bipap, oxygen saturation 95%. Chest x-ray revealed diffuse bilateral airspace disease, stable asymmetric left pleural thickening. Correlate for pulmonary edema versus diffuse pneumonia. Patient has been started on Zosyn.
--- NOTE | 2022-10-22 15:07 | P.PN ---
Subjective Progress Note Date: 10/22/22 Principal diagnosis: Leukocytosis Patient is a 72-year-old female with multiple comorbidities has been in the hospital for more than 10 days currently being evaluated and treatment for possible stroke and noticed to have elevated white count. On today's evaluation that is 10/22/2022, the patient continues to be afebrile patient did have another episode of aspiration with worsening respiratory status requiring transfer to the ICU currently on a BiPAP, patient is not requiring any pressors support patient is lethargic but does answer some simple questions no further vomiting or diarrhea has been reported by the nursing staff Objective - Vital Signs Vital signs: Vital Signs Temp 98 F 10/22/22 12:00 Pulse 72 10/22/22 12:00 Resp 28 H 10/22/22 12:00 BP 145/75 10/22/22 12:00 Pulse Ox 91 L 10/22/22 12:00 FiO2 70 10/22/22 12:00 Intake & Output 10/21/22 10/22/22 10/22/22 18:59 06:59 18:59 Intake Total 110 265 820 Output Total 1125 Balance 110 265 -305 Weight 68.7 kg 70.8 kg Intake: IV 140 220 Piperacillin-Tazobactam 3 100 .375 gm In Sodium Chloride 0.9% 100 ml @ 25 mls/hr IVPB Q8HR [facility] Rx# :[id number] Sodium Chloride 0.9% 1, 140 120 000 ml @ 20 mls/hr IV . Q24H [facility] Rx#:[id number] Intake, IV Titration 125 600 Amount Diltiazem 125 mg In 125 Sodium Chloride 0.9% 100 ml @ 10 MG/HR 10 mls/hr IV .[id number] [facility] Rx#: [id number] Linezolid 600 mg In 200 Dextrose/Water 1 300ml. bag @ 150 mls/hr IVPB Q12HR [facility] Rx#:[id number] Potassium Chloride 10 meq 400 In Water For Injection 1 100ml.bag @ 100 mls/hr IVPB Q1HR [facility] Rx#: [id number] Oral 110 Output: Urine 1125 Other: Voiding Method Indwelling Catheter Diaper Indwelling Catheter # Voids 1 0 1 # Bowel Movements 1 - Exam GENERAL DESCRIPTION: Elderly female up in the chair in no distress RESPIRATORY SYSTEM: Unlabored breathing , decreased breath sounds at bases HEART: S1 S2 regular rate and rhythm ,no loud murmurs ABDOMEN: Soft , no tenderness EXTREMITIES: No edema feet - Labs CBC & Chem 7: 10/22/22 03:42 10/22/22 03:42 Labs: Abnormal Lab Results - Last 24 Hours (Table) 10/21/22 10/21/22 10/21/22 Range/Units 23:33 23:42 23:42 WBC 20.9 H (3.8-10.6) k/uL Plt Count 79 L (150-450) k/uL Neutrophils # 19.4 H (1.3-7.7) k/uL Lymphocytes # 0.6 L (1.0-4.8) k/uL ABG pH (7.35-7.45) ABG pCO2 (35-45) mmHg ABG pO2 (83-108) mmHg ABG HCO3 (21-25) mmol/L ABG Total CO2 (19-24) mmol/L ABG O2 Saturation (94-97) % Potassium (3.5-5.1) mmol/L Chloride (98-107) mmol/L Carbon Dioxide 34 H (22-30) mmol/L Glucose 130 H (74-99) mg/dL POC Glucose (mg/dL) 123 H (70-110) mg/dL Calcium (8.4-10.2) mg/dL Alkaline Phosphatase (38-126) U/L Total Protein (6.3-8.2) g/dL Albumin (3.5-5.0) g/dL Procalcitonin (0.02-0.09) ng/mL 10/21/22 10/22/22 10/22/22 Range/Units 23:43 03:42 03:42 WBC 19.7 H (3.8-10.6) k/uL Plt Count 75 L (150-450) k/uL Neutrophils # 18.2 H (1.3-7.7) k/uL Lymphocytes # 0.6 L (1.0-4.8) k/uL ABG pH 7.30 L (7.35-7.45) ABG pCO2 69 H (35-45) mmHg ABG pO2 61 L (83-108) mmHg ABG HCO3 34 H (21-25) mmol/L ABG Total CO2 36 H (19-24) mmol/L ABG O2 Saturation 90.0 L (94-97) % Potassium 3.3 L (3.5-5.1) mmol/L Chloride 97 L (98-107) mmol/L Carbon Dioxide 38 H (22-30) mmol/L Glucose 100 H (74-99) mg/dL POC Glucose (mg/dL) (70-110) mg/dL Calcium 7.9 L (8.4-10.2) mg/dL Alkaline Phosphatase 169 H (38-126) U/L Total Protein 4.8 L (6.3-8.2) g/dL Albumin 2.4 L (3.5-5.0) g/dL Procalcitonin (0.02-0.09) ng/mL 10/22/22 Range/Units 06:00 WBC (3.8-10.6) k/uL Plt Count (150-450) k/uL Neutrophils # (1.3-7.7) k/uL Lymphocytes # (1.0-4.8) k/uL ABG pH (7.35-7.45) ABG pCO2 (35-45) mmHg ABG pO2 (83-108) mmHg ABG HCO3 (21-25) mmol/L ABG Total CO2 (19-24) mmol/L ABG O2 Saturation (94-97) % Potassium (3.5-5.1) mmol/L Chloride (98-107) mmol/L Carbon Dioxide (22-30) mmol/L Glucose (74-99) mg/dL POC Glucose (mg/dL) (70-110) mg/dL Calcium (8.4-10.2) mg/dL Alkaline Phosphatase (38-126) U/L Total Protein (6.3-8.2) g/dL Albumin (3.5-5.0) g/dL Procalcitonin 0.11 H (0.02-0.09) ng/mL Microbiology - Last 24 Hours (Table) 10/16/22 09:45 Gram Stain - Final Pleural Fluid Body Fluid Culture - Final Assessment and Plan (1) Leukocytosis Current Visit: Yes Status: Acute Code(s): D72.829 - ELEVATED WHITE BLOOD CELL COUNT, UNSPECIFIED SNOMED Code(s): 536807590 (2) Pneumonia Current Visit: Yes Status: Acute Code(s): J18.9 - PNEUMONIA, UNSPECIFIED ORGANISM SNOMED Code(s): 611685102 Plan: 1-Patient did have off-and-on worsening of respiratory status as well as up and down in the white count concerning for possible recurrent aspiration pneumonia plan is for PEG tube placement , which has been put on hold because of worsening Respiratory status, patient to continue with Zosyn and Zyvox along with aspiration precautions and monitor clinical course closely Time with Patient: Less than 30
[2022-10-22] MEDS: ATORVASTATIN 40 MG TAB PO SCH (19:54)
[2022-10-23] MEDS: POTASSIUM CHLORIDE 10 MEQ in WATER FOR INJECTION 1 100ML.BAG IVPB SCH ×6 (00:44→13:14)
[2022-10-23] MEDS: LORazepam 2 MG/ML INJ IV PRN ×2 (00:44→11:43)
[2022-10-23] MEDS: carvediloL 3.125 MG TAB PO SCH ×2 (04:30→16:46)
[2022-10-23 04:36] LABS: Basophils % (A) 0 %; Eosinophils # (A) 0.2 k/uL (0-0.7); Eosinophils % (A) 1 %; HCT 36.1 % (34.0-46.0); Lymphocytes # (A) 0.7 k/uL (1.0-4.8); Lymphocytes % (A) 4 %; MCH 30.1 pg (25.0-35.0); MCHC 33.2 g/dL (31.0-37.0); MCV 90.7 fL (80.0-100.0); Mean Platelet Volume 9.6; Monocytes # (A) 0.9 k/uL (0-1.0); Monocytes % (A) 5 %; Neutrophils # (A) 17.1 k/uL (1.3-7.7); Neutrophils % (A) 90 %; RBC 3.97 m/uL (3.80-5.40); RDW 13.9 % (11.5-15.5)
[2022-10-23 04:42] LABS: African American GFR (CKD) >90 (>60 ml/min/1.73 sqM); Blood Urea Nitrogen 12 mg/dL (7-17); Calcium 7.9 mg/dL (8.4-10.2); Chloride 92 mmol/L (98-107); Glucose 86 mg/dL (74-99); Non-African American GFR(CKD) 89 (>60 ml/min/1.73 sqM); Potassium 3.8 mmol/L (3.5-5.1); Sodium 135 mmol/L (137-145)
[2022-10-23 04:48] LABS: Anion Gap 2 mmol/L
[2022-10-23 04:54] LABS: Platelet Count 65 k/uL (150-450)
[2022-10-23 05:00] LABS: Carbon Dioxide 41 mmol/L (22-30)
--- NOTE | 2022-10-23 08:23 | XR ---
EXAMINATION TYPE: XR chest 1V portable DATE OF EXAM: 10/23/2022 COMPARISON: NONE HISTORY: Shortness of breath TECHNIQUE: Single frontal view of the chest is obtained. FINDINGS: Bilateral diffuse consolidation and marked left apical pleural thickening stable. Bilatera l pleural effusions with limited inspiration. Increasing right-sided pleural effusion. Atheroscleroti c change aorta. No pneumothorax. Arthropathy of the shoulders. IMPRESSION: Diffuse bilateral airspace disease stable asymmetric left pleural thickening or fluid. C orrelate for pulmonary edema versus diffuse pneumonia.
[2022-10-23] MEDS: PIPERACILLIN-TAZOBACTAM 3.375 GM in SODIUM CHLORIDE 0.9% 100 ML IVPB SCH ×2 (08:46→15:47)
[2022-10-23] MEDS: PANTOPRAZOLE 40 MG/10 ML VIAL IVP SCH (08:51)
[2022-10-23] MEDS: FUROSEMIDE 10 MG/ML 4 ML VIAL IV SCH ×2 (08:52→20:27)
[2022-10-23] MEDS: DILTIAZEM 125 MG in SODIUM CHLORIDE 0.9% 100 ML IV SCH ×2 (09:45→23:37)
--- NOTE | 2022-10-23 09:45 | P.PN ---
Subjective Progress Note Date: 10/22/22 10/22/2022: Patient was seen for a follow-up. Patient is laying comfortably in the bed, has BiPAP on. Patient was transferred to ICU because of respiratory distress. Patient could not undergo PEG tube placement today. 10/21/2022: Patient was seen for a follow-up. Patient is laying comfortably in the bed. Patient clinically unchanged. Still with significant aphasia, right hemiparesis. Patient apparently has admitted for PEG tube placement, which will be done tomorrow. 10/20/2022: Patient was seen for a follow-up. Patient is sitting comfortably in the recliner. Patient continues to be significantly aphasic, right hemiparetic. Patient is declining NG tube or PEG tube placement. She is now on regular floor 357. 10/15/2022: Patient was seen for follow-up. Patient since last seen, was followed up by Dr. Amadou Dye. Please refer to his note for details. Patient at present is in ICU in bed #264. She was transferred to the ICU because of large left pleural effusion. Patient also had runs of SVT last night for which an A-team was activated. 10/07/2022: Patient has developed new focal symptoms as of this morning. Patient has developed right arm weakness, which is very noticeable. This is an acute change. Patient continues to be severely expressively aphasic. Her comprehension appears to be slightly worse today. Patient admits to having headache. 10/06/2022: Patient was seen for a follow-up. Patient is sitting comfortably in the recliner. Denies any headache. Family members were not present today. Patient continues to be severely aphasic with anarthria. Telemetry monitoring showing sinus rhythm. 10/05/2022: Patient initially seen by Dr. Amadou Dye. Please refer to his note for details. Patient is a 72-year-old right-handed female with history of stage IV lung cancer, came with global aphasia and muteness. Patient's daughter was present, who provided with history. On Wednesday evening 09/30/2022 at 7 PM, while cutting vegetables, she stopped getting the jaycob and started drooling for 15 minutes. She was brought to the hospital and her speech returned back to baseline. She was sent home, and next day on Thursday at 9:30 AM, she stopped talking and has never regained speech yet. MRI of the brain revealed multiple bilateral hemispheric stroke, left slightly more than right. Patient has his tory of DVT 3 weeks ago and atrial fibrillation and was on Xarelto but appears failed. Patient was started on broad neck side yesterday. JESUS is pending. Patient's daughter was also present, who states that patient is cognitively intact. She understands everything, but cannot express herself which makes her very frustrated. Some of the workup during his hospital visit consisted of: Lipid panel triglycerides 79, cholesterol is 204, LDLs 128, HDL 59. CT head is reported as no acute intracranial process. I personally reviewed that a CT and there is no acute or subacute ischemia seen. There is no mass affect. CT angiography of the head and neck was reported as no evidence of dissection of the cervical internal carotid arteries or vertebral artery or any evidence of significant stenosis at the carotid bifurcation. No evidence of intracranial high-grade stenosis or intracranial aneurysm. Intracranial atherosclerosis of the internal carotid artery without hemodynamic stenosis. Right and increased size of left pleural effusion. There is a pleural sign in the left which could represent empyema. Persistent that scattered nodular opacity likely representing metastatic disease from the patient known malignancy. EKG is reported as sinus rhythm. Low QRS voltage [facility] Drug screen is negative. MRI brain is reported as scattered foci of restricted diffusion compatible with acute/subacute CVA. Given multiple vascular distribution correlate for embolic phenomena. No abnormal postcontrast enhancement the, no evidence for mass. Nonspecific white matter changes likely secondary to chronic small vessel ischemic disease. I personally reviewed the MRI and I agree with the report. Patient has restriction diffusion over bilateral frontal left more than the right with right parietal occipital region The echo was reported as suboptimal acoustic windows. Contrast echo study per formed. Borderline normal left ventricle systolic function septal bulge. There is septal and inferior basal hypokinesis. Routine EEG is normal. There is no focal slowing, epileptiform discharges or seizure on the EEG. Venous duplex of the upper and lower extremities negative Objective - Vital Signs Vital signs: Vital Signs Temp 98 F 10/22/22 12:00 Pulse 77 10/22/22 14:00 Resp 30 H 10/22/22 14:00 BP 150/75 10/22/22 14:00 Pulse Ox 92 L 10/22/22 14:00 FiO2 70 10/22/22 12:00 Intake & Output 10/21/22 10/22/22 10/22/22 18:59 06:59 18:59 Intake Total 110 265 840 Output Total 1570 Balance 110 265 -730 Weight 68.7 kg 70.8 kg Intake: IV 140 240 Piperacillin-Tazobactam 3 100 .375 gm In Sodium Chloride 0.9% 100 ml @ 25 mls/hr IVPB Q8HR [facility] Rx# :[id number] Sodium Chloride 0.9% 1, 140 140 000 ml @ 20 mls/hr IV . Q24H [facility] Rx#:[id number] Intake, IV Titration 125 600 Amount Diltiazem 125 mg In 125 Sodium Chloride 0.9% 100 ml @ 10 MG/HR 10 mls/hr IV .[id number] [facility] Rx#: [id number] Linezolid 600 mg In 200 Dextrose/Water 1 300ml. bag @ 150 mls/hr IVPB Q12HR [facility] Rx#:[id number] Potassium Chloride 10 meq 400 In Water For Injection 1 100ml.bag @ 100 mls/hr IVPB Q1HR [facility] Rx#: [id number] Oral 110 Output: Urine 1570 Other: Voiding Method Indwelling Catheter Diaper Indwelling Catheter # Voids 1 0 1 # Bowel Movements 1 - Exam Patient is alert and awake, laying comfortably in the bed. Patient has BiPAP on. Patient is severely aphasic. Mute, not able to speak any words. Patient not able to point to the window, to the ceiling or the door. She has partial comprehension. Detailed testing could not be performed because of BiPAP. Cranial nerves significant for pupils equal, round and reacting. Patient would not understand directions to check for visual patel. She would nod her head yes for everything. Patient has right facial asymmetry. Patient is flaccid in the right upper limb with no movement. The strength is normal in the left upper limb. Her strength is normal in the lower limbs - Labs CBC & Chem 7: 10/23/22 04:13 10/23/22 04:13 Labs: Abnormal Lab Results - Last 24 Hours (Table) 10/21/22 10/21/22 10/21/22 Range/Units 23:33 23:42 23:42 WBC 20.9 H (3.8-10.6) k/uL Plt Count 79 L (150-450) k/uL Neutrophils # 19.4 H (1.3-7.7) k/uL Lymphocytes # 0.6 L (1.0-4.8) k/uL ABG pH (7.35-7.45) ABG pCO2 (35-45) mmHg ABG pO2 (83-108) mmHg ABG HCO3 (21-25) mmol/L ABG Total CO2 (19-24) mmol/L ABG O2 Saturation (94-97) % Potassium (3.5-5.1) mmol/L Chloride (98-107) mmol/L Carbon Dioxide 34 H (22-30) mmol/L Glucose 130 H (74-99) mg/dL POC Glucose (mg/dL) 123 H (70-110) mg/dL Calcium (8.4-10.2) mg/dL Alkaline Phosphatase (38-126) U/L Total Protein (6.3-8.2) g/dL Albumin (3.5-5.0) g/dL Procalcitonin (0.02-0.09) ng/mL 10/21/22 10/22/22 10/22/22 Range/Units 23:43 03:42 03:42 WBC 19.7 H (3.8-10.6) k/uL Plt Count 75 L (150-450) k/uL Neutrophils # 18.2 H (1.3-7.7) k/uL Lymphocytes # 0.6 L (1.0-4.8) k/uL ABG pH 7.30 L (7.35-7.45) ABG pCO2 69 H (35-45) mmHg ABG pO2 61 L (83-108) mmHg ABG HCO3 34 H (21-25) mmol/L ABG Total CO2 36 H (19-24) mmol/L ABG O2 Saturation 90.0 L (94-97) % Potassium 3.3 L (3.5-5.1) mmol/L Chloride 97 L (98-107) mmol/L Carbon Dioxide 38 H (22-30) mmol/L Glucose 100 H (74-99) mg/dL POC Glucose (mg/dL) (70-110) mg/dL Calcium 7.9 L (8.4-10.2) mg/dL Alkaline Phosphatase 169 H (38-126) U/L Total Protein 4.8 L (6.3-8.2) g/dL Albumin 2.4 L (3.5-5.0) g/dL Procalcitonin (0.02-0.09) ng/mL 10/22/22 Range/Units 06:00 WBC (3.8-10.6) k/uL Plt Count (150-450) k/uL Neutrophils # (1.3-7.7) k/uL Lymphocytes # (1.0-4.8) k/uL ABG pH (7.35-7.45) ABG pCO2 (35-45) mmHg ABG pO2 (83-108) mmHg ABG HCO3 (21-25) mmol/L ABG Total CO2 (19-24) mmol/L ABG O2 Saturation (94-97) % Potassium (3.5-5.1) mmol/L Chloride (98-107) mmol/L Carbon Dioxide (22-30) mmol/L Glucose (74-99) mg/dL POC Glucose (mg/dL) (70-110) mg/dL Calcium (8.4-10.2) mg/dL Alkaline Phosphatase (38-126) U/L Total Protein (6.3-8.2) g/dL Albumin (3.5-5.0) g/dL Procalcitonin 0.11 H (0.02-0.09) ng/mL Assessment and Plan Assessment: Recurrent ischemic strokes. Patient has failed Pradaxa, Xarelto in the recent past with breakthrough strokes. Patient at present is severely aphasic, right hemiplegic, mainly involving the facial brachial region. Dysphagia, due to above. Acute ischemic stroke (over bilateral hemisphere: bilateral frontal L>R, right parietal and occipital region). Stroke appears embolic in nature: Probable cardioembolic. Patient currently on Eliquis. Leukocytosis and possible pneumonia. Patient on Zosyn and Linezolid, ID on board. History of left lung cancer History of right breast cancer History of recent DVT about 3 weeks ago and was on Xarelto History of pleural effusion, status post thoracentesis 1300 serosanguineous fluid removed, positive for malignancy History of atrial fibrillation and in past was on anticoagulation then stopped then after DVT 3 weeks ago restarted it Plan: Patient is neurologically stable. She continues to be aphasic, and plegic in the right upper extremity. Patient not able to take Eliquis due to dysphagia, and PEG tube could not be placed. Discussed with nursing staff. Need to discuss with family about a placement of Dobbhoff or NG tube to resume anticoagulation, depending PEG tube placement, otherwise she is very high high risk for recurrent strokes. Patient had recurrent ischemic strokes. CTA of head and neck showed no significant change from recent CTA study. No LVO. Patient has failed Xarelto, and now also Pradaxa. Patient is also on Plavix. Patient now stable on Eliquis. Patient to undergo PEG placement in the morning. Patient is agreeing for PEG tube placement now. Psychiatry has seen the patient, and patient is not competent to make decision. JESUS performed 10/10/2022 revealed normal appearance left atrial appendage. Normal left ventricular size and systolic function. No shunting across the intra-atrial septum. Mild mitral and tricuspid regurgitation. Aortic valve sclerosis without stenosis. Continue Lipitor 40 mg daily at bedtime second stroke prophylaxis Routine EEG normal. Cardiac monitoring PT OT and [employer] are consulted. Patient is declining feeding tube. She is at risk for aspiration. Cardiology is on board. Pulmonary team is consulted for pleural effusion and history of lung cancer We'll defer the rest of the medical management to primary team For DVT prophylaxis: Eliquis. Neurology will follow sporadically.
[2022-10-23] MEDS: ANASTROZOLE 1 MG TAB PO SCH (10:04)
[2022-10-23] MEDS: lisinopriL 5 MG TAB PO SCH ×2 (10:04→21:09)
[2022-10-23] MEDS: LACTULOSE 20 GM/30 ML CUP PO SCH ×4 (10:04→22:04)
[2022-10-23] MEDS: DOCUSATE 100 MG CAP PO SCH ×2 (10:04→21:09)
[2022-10-23 10:27] VITALS: BMI 27.1
--- NOTE | 2022-10-23 10:36 | P.PN ---
Subjective Progress Note Date: 10/23/22 Principal diagnosis: Pleural effusion, chronic. Pulmonary/critical care consult dated 10/02/2022. 72-year-old female with a history of breast cancer, presents to the emergency de partment on October 01, complaining of strokelike symptoms. The patient apparently had a slight right-sided facial droop, and was unable to speak. The patient was admitted to the hospital, and we are asked to see her for her chronic left-sided effusion. The patient has had a thoracentesis in the past, which I believe was done at [facility]. Currently, the patient's on room air, and not rece iving any IV fluids. The speech pathologist was in room with her. We saw her in 378. Her medical history includes rest cancer, hypertension, myocardial infarction, osteoarthritis, and apparently the patient is a lifelong nonsmoker. She has had a catheterization with stent placement in her right coronary artery. She appears in no distress. CBC is completely normal. PT 12.3 with an INR 1.2. PTT is 31.6. Electrolytes are normal including sodium, potassium, chloride, carbon dioxide, anion gap, BUN, and creatinine. Glucose 104. The rest of the comprehensive metabolic profile is essentially normal. Urine is negative. Drug screen was negative. Chest x-ray shows a moderate left-sided e ffusion, and a small right-sided effusion. Brain CT was negative. Angiography, CT, showed no evidence of high-grade stenosis. Brain MRI showed scattered foci of restricted diffusion compatible with acute subacute LINDA. There were multiple vascular distributions. No evidence for mass. Progress note dated 10/03/2022. 72-year-old female with history of breast cancer, and chronic left-sided pleural effusion. The patient was admitted with a diagnosis of stroke. She is currently seeing neurology. She stable from the pulmonary standpoint. She's on room air. She's not receiving any IV fluids. The patient has a right facial droop, and is aphasic. CBC today is normal. Sodium 140, potassium 3.8, chlorides 105, CO2 27, anion gap 8, BUN 15, and creatinine 0.56. Progress note dated 10/23/2022. 73-year-old female with a history of breast cancer, as well as lung cancer. I last saw the patient on October 03. Please see the note above. Currently, the patient's resting comfortably in the intensive care unit. She is in room 259. She was to have a PEG tube placed, but I told the surgeon, that she was too unstable to have it done today. She's currently on BiPAP, with settings of 10/5 and 70%. She's getting Cardizem at 10 mg an hour, and saline at 10 mL an hour. The Zyvox is discontinued. She remains on Zosyn. The patient is now a DO NOT RESUSCITATE patient. I spoke to the nurses about the possibility of the patient having a hospice or palliative care consult. It will be discussed with her son. White count is 19, hemoglobin 12, hematocrit 36.1, and platelet count 65,000. Sodium 135, potassium 3.8, chlorides 92, CO2 41, with a normal BUN and creatinine. Chest x-ray shows worsening diffuse airspace disease, compared to prior x-rays. Objective - Vital Signs Vital signs: Vital Signs Temp 97.5 F L 10/23/22 08:00 Pulse 92 10/23/22 10:00 Resp 29 H 10/23/22 10:00 BP 151/78 10/23/22 10:00 Pulse Ox 95 10/23/22 10:00 FiO2 70 10/23/22 08:37 Intake & Output 10/22/22 10/23/22 10/23/22 18:59 06:59 18:59 Intake Total 1220 1263.167 302.5 Output Total 1750 2400 650 Balance -530 -1136.833 -347.5 Weight 67.4 kg 67.4 kg Intake: IV 620 1140 180 Linezolid 600 mg In 300 Dextrose/Water 1 300ml. bag @ 150 mls/hr IVPB Q12HR [facility] Rx#:[id number] Piperacillin-Tazobactam 3 400 100 100 .375 gm In Sodium Chloride 0.9% 100 ml @ 25 mls/hr IVPB Q8HR [facility] Rx# :[id number] Potassium Chloride 10 meq 500 In Water For Injection 1 100ml.bag @ 100 mls/hr IVPB Q1HR [facility] Rx#: [id number] Sodium Chloride 0.9% 1, 220 240 80 000 ml @ 20 mls/hr IV . Q24H [facility] Rx#:[id number] Intake, IV Titration 600 123.167 122.5 Amount Diltiazem 125 mg In 123.167 122.5 Sodium Chloride 0.9% 100 ml @ 10 MG/HR 10 mls/hr IV .[id number] [facility] Rx#: [id number] Linezolid 600 mg In 200 Dextrose/Water 1 300ml. bag @ 150 mls/hr IVPB Q12HR [facility] Rx#:[id number] Potassium Chloride 10 meq 400 In Water For Injection 1 100ml.bag @ 100 mls/hr IVPB Q1HR [facility] Rx#: [id number] Output: Urine 1750 2400 650 Other: Voiding Method Indwelling Catheter Indwelling Catheter Indwelling Catheter # Voids 1 - Exam Mild tachypnea/dyspnea. Currently on BiPAP. HEENT examination is grossly unremarkable. Mucous membranes are moist. Neck supple. Full range of motion. No adenopathy thyromegaly or neck vein distention. Cardiovascular examination reveals regular rhythm rate. S1-S2 normal. No S3 or S4. No discernible murmur noted. Heart rate 92 bpm. Lungs reveal coarse bilateral rhonchi. No wheezes. Scattered crackles. Saturations are 94% on BiPAP. Abdomen soft without bowel sounds. No masses or tenderness. Extremities are intact. No cyanosis clubbing or edema. Skin is without rash or lesion. Neurologic examination reveals a right facial droop. - Labs CBC & Chem 7: 10/23/22 04:13 10/23/22 09:16 Labs: Abnormal Lab Results - Last 24 Hours (Table) 10/22/22 10/22/22 10/23/22 Range/Units 06:00 15:10 04:13 WBC 19.0 H (3.8-10.6) k/uL Plt Count 65 L (150-450) k/uL Neutrophils # 17.1 H (1.3-7.7) k/uL Lymphocytes # 0.7 L (1.0-4.8) k/uL Sodium (137-145) mmol/L Potassium 3.0 L (3.5-5.1) mmol/L Chloride (98-107) mmol/L Carbon Dioxide (22-30) mmol/L Calcium (8.4-10.2) mg/dL Procalcitonin 0.11 H (0.02-0.09) ng/mL 10/23/22 Range/Units 04:13 WBC (3.8-10.6) k/uL Plt Count (150-450) k/uL Neutrophils # (1.3-7.7) k/uL Lymphocytes # (1.0-4.8) k/uL Sodium 135 L (137-145) mmol/L Potassium (3.5-5.1) mmol/L Chloride 92 L (98-107) mmol/L Carbon Dioxide 41 H* (22-30) mmol/L Calcium 7.9 L (8.4-10.2) mg/dL Procalcitonin (0.02-0.09) ng/mL Assessment and Plan Assessment: Acute/subacute CVA, with aphasia, and right facial droop. Acute hypoxemic and hypercapnic respiratory failure. History of breast cancer, and chronic bilateral pleural effusions. History of non-small cell lung cancer. Expressive aphasia. Possible aspiration pneumonia. History of hypertension. History of CAD, with previous stent placement, right coronary artery. History of myocardial infarction. History of DVT. History of atrial fibrillation. History of osteoarthritis. Lifelong nontobacco user. Plan: Plan dated 10/02/2022. The patient was admitted for neurologic complaints, including right facial droop, and aphasia. The patient will be seen by neurology. She does have a chronic left-sided effusion, and has undergone thoracentesis in the past. I believe the last time we saw her, she had thoracentesis performed that [facility]. I believe I saw her about one year ago in October 2021 recently my consultation from that evaluation. We will continue to follow make recommendations. Plan dated 10/03/2022. The patient is stable from the pulmonary standpoint. She's on room air. She is a chronic left-sided pleural effusion, which had been previously drained at [facility]. Patient is currently being evaluated by neurology for her stroke symptoms. Prognosis is guarded. The patient has a right facial droop, and is unable to speak. Labs, x-rays, and medications are all reviewed. Plan dated 10/23/2022. The patient's overall condition has significantly deteriorated. She remains on BiPAP, with settings of 10/5 and 70%. The patient's very lethargic. She is on a Cardizem drip at 10 mg an hour for her atrial fibrillation. We will DC the Zyvox. She remains on Zosyn. We will continue to follow make recommendations along the way. Labs, x-rays, medications are reviewed. The patient is now a DO NOT RESUSCITATE patient. It would not be inappropriate talk to the family about a palliative care consult, or hospice consult. Time with Patient: Greater than 30
--- NOTE | 2022-10-23 10:38 | P.PN ---
Subjective Progress Note Date: 10/23/22 Kat Kim, is a 72-year-old female who presented to [facility] emergency room with a chief complaint difficulty with her speech, and right facial drooping, patient presented to emergency room with similar complaints yesterday, at that time she was [facility] however she felt that she was improving and she opted to go home. However over the next several hours patient developed complete aphasia, she was brought back to the emergency room by her family. She was evaluated in the emergency room vital examination on presentation revealed a temperature of 99 pulse 84 respiration 18 blood pressure 160/87 pulse ox 94% on room air Laboratory data revealed a white blood count of 7.1 hemoglobin 14.6 platelet count 167 sodium 137 potassium 4.3 chloride 102 CO2 29 BUN 9 creatinine 0.56 urine analysis revealed no evidence of infection and urine toxicology screen was negative Testing in the emergency room revealed, computed tomography scan of the brain without contrast was done in the emergency room and revealed no acute intracranial process, CT angiogram of the brain done in the emergency room revealed no evidence of dissection of the cervical internal carotid arteries or vertebral arteries or any evidence of significant stenosis at the carotid bifurcation there was no evidence of intracranial high-grade stenosis or intracranial aneurysm Patient was admitted to medical floor for further evaluation and treatment, neurology consultation was requested Past medical history is significant for history of breast cancer, history of stacey ng cancer, history of atrial fibrillation, history of lower extremity DVT, patient was maintained on Xarelto At home On 10/02/2022. Patient is currently resting in room remains with difficulty in speech and right facial drooping. MRI of the brain was completed showing scattered foci of restricted diffusion compatible with acute or subacute CVA given multiple vascular distributions correlate for emboli phenomenon. Neurology services are following. Cardiology services also consulted. Current vital signs temp 98.1, heart rate 74, blood pressure 129/67 pulse ox of 94% on room air On 10/03/2022, patient was seen and examined on telemetry, case was discussed in details with Dr. Amadou López neurologist, patient is developing more difficulty with swallowing, recommendation from neurology is to proceed with JESUS, to rule out cardiac thrombus or PFO. However due to significant difficulty with swallowing, cardiology wanted to wait at this time on JESUS. Recommendation from neurology at this time is to proceed with upper and lower bilateral lower extremity Doppler to rule out acute DVT, and to start anticoagulation starting tomorrow. On 10/04/2022 patient is sitting comfortably in chair. Patient remains nonverbal. Pradaxa has been started per cardiology and neurology recommendations. Current vital signs temp 97.5, heart rate 77, respiratory rate 16, blood pressure 1 5476 with pulse ox 93% on room air. Per cardiology at this time JESUS remains on hold due to difficulty in swallowing. On 10/05/2022 patient was seen and examined on the medical she is alert and oriented 3 in no apparent distress, she is sitting up in a chair, she still has significant facial drooping, she has complete aphasia, she tries to answer questions by nodding her head, she is still having significant difficulty with swallowing, cardiology note reviewed, no plans for JESUS at this time due to difficulty swallowing and the risk of aspiration, she was started on Pradaxa for anticoagulation, she is having difficulty swallowing the pill as it cannot be crushed. At this time will continue with physical therapy, occupational therapy, and speech therapy, will reassess in a.m. On 10/06/2022 patient was seen and examined the medical floor she is alert and oriented in no apparent distress, she is sitting up in a chair she still has complete aphasia, she is having difficulty swallowing, she is complaining of constipation, otherwise she denies any complaints there is no fever or chills no headache or dizziness no chest pain no shortness of breath no cough no nausea or vomiting no abdominal pain no diarrhea and no urinary symptoms. At this time, JESUS will be delayed until patient has better swallowing per cardiology, possibility of rehab admission discussed with patient however she is indicating that she wants to go home, possible discharge to home tomorrow if stable and no further recommendation from cardiology or neurology On 10/07/2022 patient is currently sitting in chair. Patient's son at bedside. Per patient's son patient had a fall this a.m. due to new onset of weakness to her right arm. Patient denies any injuries from fall but does report that the right arm weakness started last night. This is new per son. At this time will do a head CT and discussed with nursing staff to notify neurology services. patient denies chest pain or shortness of breath. Patient denies nausea vomiting or diarrhea. Patient denies any urinary burning or frequency. On 10/08/2022 patient was seen and examined on the telemetry floor she is alert responsive in no apparent distress she is still completely aphasic, she is answering questions by nodding her head, she is still having right sided facial drooping and difficulty swallowing, she also now has complete paralysis of the right upper extremity, neurology are following closely, they recommended JESUS however per their notes patient has refused to complete test. Medication were reviewed will continue with current management will discuss with neurology further treatment steps. On 10/09/2022 patient is currently resting comfortably in bed. Patient have some movement to right extremity no further new neurological symptoms. Patient still having right-sided facial drooping and difficulty swallowing. Patient's son is at bedside per family trying to convince patient to move forward with JESUS. Neurology services are following this time patient denies chest pain or shortness of breath. Patient denies nausea vomiting or diarrhea. Patient denies any urinary burning or frequency On 10/10/2022 patient was seen and examined on the telemetry floor she is alert and oriented 3 in no apparent distress she is still having right facial drooping, complete expressive aphasia, difficulty swallowing, and right upper extremity paralysis, she is scheduled for JESUS today, awaiting further input from neurology and cardiology, possible transfer to rehab on Wednesday if stable and no further recommendation for any testing and intervention. On 10/11/2022 patient is alert and oriented 3 currently sitting up in chair. Patient continues to have right facial drooping complete expressive aphasia, difficulty swallowing and right upper extremity paralysis. No new neurological symptoms noted. Patient did have JESUS completed. White blood cell trending up 15.6 will order chest x-ray urinalysis blood culture and consult infectious dis ease. On 10/12/2022 patient was seen and examined on the telemetry floor she is alert and oriented in no apparent distress, she is still having right sided facial drooping, complete expressive aphasia, and difficulty swallowing, she is also having severe paralysis of the right upper extremity. I have discussed her case in details with Dr. Rondon and with Dr. Dye on neurology, patient failed on Xarelto and had a stroke while she was taking Xarelto, recommendation by cardiology was to switch to Pradaxa, which was done a few days ago, however patient was not able to swallow Pradaxa pills, and it's not recommended that those pills are crushed, so cardiology switched her back to Xarelto, however upon discussion today with neurology Dr. Amadou Dye, he recommended to switch to Eliquis. At this time will discontinue Xarelto today and start with Eliquis in a.m. tomorrow. Patient also has elevated white blood count possibly related to aspiration even though chest x-ray is not revealing evidence of pneumonia, patient is followed by infectious disease she is maintained on IV antibiotic, wi ll continue to follow closely. There is a bed available for patient in [facility] rehab unit, however due to elevated white blood count and use of IV antibiotics, she is not stable enough yet for transfer. Will follow in a.m.. Prognosis is guarded. On 10/13/2022 patient was seen and examined on the telemetry floor she is alert responsive in no apparent distress, clinically there is no significant change in her condition since yesterday, her white blood count is increasing up to 24.2 from 16.[address] Berg is following antibiotic were changed today to Zosyn, vital exam reveals a temperature of 97.8 pulse 56 respiration 18 blood pressure 140/73 pulse ox 91% on room air. No new recommendation from neurology or cardiology, will continue to follow closely, prognosis is guarded On 10/14/2022 patient is alert responsive sitting in bed patient does appear to have increased shortness of breath requiring increased oxygen at 5 L. This time a ordered stat chest x-ray and consult pulmonary services. Patient is on antibiotics of IV Zosyn. Infectious disease services are following. Patient denies chest pain. Patient denies nausea vomiting or diarrhea. She remains on anticoagulation of eliquis and Plavix On 10/15/2022 patient was seen and examined on the medical floor she is alert and responsive in no apparent distress she is still nonverbal she still has complete paralysis of the right upper extremity she still has facial drooping and difficulty swallowing, during hairspring studder hours patient had episode of SVT with heart rate 120- 150 cardiology were contacted and she was started on IV Cardizem drip, white blood count continue to increase pulmonary and infectious disease are following currently patient is maintained on Zosyn and Zyvox possibility of thoracentesis is being discussed. Patient is not appropriate to discharge to rehab at this point will continue to follow closely. On 10/16/2022 patient was seen and examined in the ICU, over night patient developed worsening shortness of breath, she was transferred from the telemetry floor to the ICU and was started on BiPAP, pulmonary is following, and are planning for thoracentesis this morning, otherwise no change in condition since yesterday, prognosis remains guarded, pulmonary cardiology infectious disease and neurology are following. On 10/17/2022 patient was seen and examined in the ICU, she is alert responsive in no apparent distress, she is still nonverbal, she has right sided facial drooping, aphasia, and the right upper extremity paralysis, her shortness of breath has improved significantly, patient had thoracentesis yesterday, she is still maintained on IV antibiotics and her white blood count came down from 28,000-20,000 over the last 2 days, at this time will continue with current management patient can be transferred out of ICU today, hopefully she will be transferred to rehab over the next few days. On 10/18/2022 patient was seen and examined on the telemetry floor she is alert responsive in no apparent distress, she still has complete aphasia, right sided facial drooping, and right upper extremity paralysis, she is able to communicate by answering questions yes and no, she denies any pain or discomfort at this time, there is no evidence of shortness of breath at rest, chest x-ray reviewed and reveals worsening airspace disease throughout the right lung and similar airspace disease and pleural effusion on the left, no plans for repeat thoracentesis at this time per pulmonary. Labs today are still pending, white blood count was down to 20,000 yesterday patient is maintained on IV Zosyn and IV linezolid, infectious disease following, clinically patient is improving gradually, prognosis remains guarded, plan is to transfer to [facility] rehab when stable. On 10/19/2022 patient is sitting in chair alert and responsive remains with complete aphasia. Vital signs temp 97, heart rate 96, respiratory rate 20, blood pressure 166/79 potassium low at 3.1 replacement protocol. Patient remains on high flow nasal cannula 5 L. On 10/20/2022 patient was seen and examined on the telemetry floor she is alert responsive in no apparent distress, she still has complete aphasia, right sided facial drooping, and right upper extremity paralysis, patient is sitting up in a chair comfortably she denies any complaints. White blood count today 23.7 On 10/21/2022 patient currently sitting up in bed remains aphasic. Increased oxygen demand concerns for possible aspiration. chest x-ray ordered. Recommendations for possible PEG tube placement due to reoccurring aspiration. Unable to assess patient mentation due to aphasia family concerned over patient competence in regards to decision about PEG tube placement will consult psychiatry services to assess patient's competency and decision-making ability. We'll also reconsult pulmonary services due to increased oxygen demands. Patient does have elevated heart rate Cardizem ordered per cardiology services. On 10/22/2022 patient was seen and examined in the ICU, during the last night patient had worsening breathing difficulty, she was transferred to ICU and started on BiPAP, patient is alert responsive in mild respiratory distress. Vital exam today reveals a temperature of 98 pulse 72 respiration 28 blood pressure 145/75 pulse ox 91% on BiPAP, white blood count 19.7 hemoglobin 11.8 platelet count 75, pulmonary critical care are following, prognosis guarded. On 10/23/2022 patient remains in the intensive care unit. Patient remains on BiPAP repeat chest x-ray this a.m. Family has made patient DO NOT RESUSCITATE. Critical care services are following. Current vital signs temp 97.5, heart rate 92, respiratory rate 29, blood pressure 151/78 with an oxygen delivery of BiPAP 70% area Objective - Vital Signs Vital signs: Vital Signs Temp 97.5 F L 10/23/22 08:00 Pulse 92 10/23/22 10:00 Resp 29 H 10/23/22 10:00 BP 151/78 10/23/22 10:00 Pulse Ox 95 10/23/22 10:00 FiO2 70 10/23/22 08:37 Intake & Output 10/22/22 10/23/22 10/23/22 18:59 06:59 18:59 Intake Total 1220 1263.167 302.5 Output Total 1750 2400 650 Balance -530 -1136.833 -347.5 Weight 67.4 kg 67.4 kg Intake: IV 620 1140 180 Linezolid 600 mg In 300 Dextrose/Water 1 300ml. bag @ 150 mls/hr IVPB Q12HR [facility] Rx#:[id number] Piperacillin-Tazobactam 3 400 100 100 .375 gm In Sodium Chloride 0.9% 100 ml @ 25 mls/hr IVPB Q8HR [facility] Rx# :[id number] Potassium Chloride 10 meq 500 In Water For Injection 1 100ml.bag @ 100 mls/hr IVPB Q1HR [facility] Rx#: [id number] Sodium Chloride 0.9% 1, 220 240 80 000 ml @ 20 mls/hr IV . Q24H [facility] Rx#:[id number] Intake, IV Titration 600 123.167 122.5 Amount Diltiazem 125 mg In 123.167 122.5 Sodium Chloride 0.9% 100 ml @ 10 MG/HR 10 mls/hr IV .[id number] [facility] Rx#: [id number] Linezolid 600 mg In 200 Dextrose/Water 1 300ml. bag @ 150 mls/hr IVPB Q12HR [facility] Rx#:[id number] Potassium Chloride 10 meq 400 In Water For Injection 1 100ml.bag @ 100 mls/hr IVPB Q1HR [facility] Rx#: [id number] Output: Urine 1750 2400 650 Other: Voiding Method Indwelling Catheter Indwelling Catheter Indwelling Catheter # Voids 1 - Exam In general patient is alert and oriented, able to communicate by writing on board in no apparent distress HEENT head normocephalic and atraumatic Neck is supple no JVD no goiter no lymphadenopathy no carotid bruit Chest examination is clear to auscultation no crackles no wheezing Cardiac exam reveals regular heart sounds S1 and S2 no gallops no murmurs Abdomen is soft nontender no organomegaly with normal bowel sounds Extremity exam reveals no edema no cyanosis or clubbing Neurological examination reveals complete expressive aphasia, and right facial drooping otherwise no focal deficit - Labs CBC & Chem 7: 10/23/22 04:13 10/23/22 09:16 Labs: Abnormal Lab Results - Last 24 Hours (Table) 10/22/22 10/23/22 10/23/22 Range/Units 15:10 04:13 04:13 WBC 19.0 H (3.8-10.6) k/uL Plt Count 65 L (150-450) k/uL Neutrophils # 17.1 H (1.3-7.7) k/uL Lymphocytes # 0.7 L (1.0-4.8) k/uL Sodium 135 L (137-145) mmol/L Potassium 3.0 L (3.5-5.1) mmol/L Chloride 92 L (98-107) mmol/L Carbon Dioxide 41 H* (22-30) mmol/L Calcium 7.9 L (8.4-10.2) mg/dL Assessment and Plan Plan: Expressive aphasia and right facial droop secondary to ischemic stroke Reoccurring ischemic stroke with right arm paralysis Bilateral pleural effusions status post thoracentesis on 10/16/2022 cytology pending Leukocytosis secondary to possible aspiration pneumonia. Patient remains on IV antibiotics infectious disease service is consulted Recurring aspiration pneumonia. Dr. alonso consulted for possible PEG tube p lacement Underlying history of lung cancer Underlying history of breast cancer Previous history of DVT 3 weeks ago, maintained on Xarelto Underlying history of left pleural effusion History of atrial fibrillation At this time patient was seen and examined in the emergency room Home medications reviewed and reordered Cardiology, pulmonary, infectious disease and neurology service is following Per psychiatry service is patient is unable to make decisions at this time Surgical service is consulted for possible PEG tube placement JESUS completed on 10/10/2022 Will follow closely
--- NOTE | 2022-10-23 10:42 | P.PN ---
Subjective Progress Note Date: 10/23/22 CHIEF COMPLAINT: CVA and aspirating HISTORY OF PRESENT ILLNESS: Patient remains in the ICU. The patient was off of the BiPAP for a short period of time this morning. However, she's been restarted on the BiPAP. Per pulmonary service patient is too unstable to proceed with PEG tube placement. Chest x-ray diffuse bilateral airspace disease stable asymmetric left pleural thickening or fluid. Correlate for pulmonary edema versus pulmonary pneumonia. They've changed patient's CODE STATUS to DO NOT RESUSCITATE. Afebrile. WBC 19 Hgb 12.0 platelets 65 sodium 135 potassium 3.8 CO2 is 41 creatinine 0.66 PHYSICAL EXAM: VITAL SIGNS: Reviewed. GENERAL: Well-developed in no acute distress. Has Bipap on ABDOMEN: Soft. Nondistended. Nontender. NEUROLOGIC: Pleasantly confused. ASSESSMENT: 1. Ischemic stroke 2. Recurrent aspiration and severe protein calorie malnutrition 3. Hypoxia PLAN: -PEG tube placement currently on hold until respiratory status improves -Continue ICU management -Continue supportive care Physician Asset Coordinator note has been reviewed by physician. Signing provider agrees with the documented findings, assessment, and plan of care. I have personally seen and examined the patient, reviewed the CORROSION CONTROL ENGINEER /PAs history, exam and MDM and agree with the assessment and plan as written. Based on total visit time, I have performed more than 50% of the visit. As above: Patient has had further pulmonary decompensation. Spoke with pulmonary specialists this morning. She is not cleared for PEG tube placement at this time. We'll reevaluate tomorrow. Objective - Vital Signs Vital signs: Vital Signs Temp 97.5 F L 10/23/22 08:00 Pulse 92 10/23/22 10:00 Resp 29 H 10/23/22 10:00 BP 151/78 10/23/22 10:00 Pulse Ox 95 10/23/22 10:00 FiO2 70 10/23/22 08:37 Intake & Output 10/22/22 10/23/22 10/23/22 18:59 06:59 18:59 Intake Total 1220 1263.167 302.5 Output Total 1750 2400 650 Balance -530 -1136.833 -347.5 Weight 67.4 kg 67.4 kg Intake: IV 620 1140 180 Linezolid 600 mg In 300 Dextrose/Water 1 300ml. bag @ 150 mls/hr IVPB Q12HR [facility] Rx#:[id number] Piperacillin-Tazobactam 3 400 100 100 .375 gm In Sodium Chloride 0.9% 100 ml @ 25 mls/hr IVPB Q8HR [facility] Rx# :[id number] Potassium Chloride 10 meq 500 In Water For Injection 1 100ml.bag @ 100 mls/hr IVPB Q1HR [facility] Rx#: [id number] Sodium Chloride 0.9% 1, 220 240 80 000 ml @ 20 mls/hr IV . Q24H [facility] Rx#:[id number] Intake, IV Titration 600 123.167 122.5 Amount Diltiazem 125 mg In 123.167 122.5 Sodium Chloride 0.9% 100 ml @ 10 MG/HR 10 mls/hr IV .[id number] [facility] Rx#: [id number] Linezolid 600 mg In 200 Dextrose/Water 1 300ml. bag @ 150 mls/hr IVPB Q12HR [facility] Rx#:[id number] Potassium Chloride 10 meq 400 In Water For Injection 1 100ml.bag @ 100 mls/hr IVPB Q1HR [facility] Rx#: [id number] Output: Urine 1750 2400 650 Other: Voiding Method Indwelling Catheter Indwelling Catheter Indwelling Catheter # Voids 1 - Labs CBC & Chem 7: 10/23/22 04:13 10/23/22 09:16 Labs: Abnormal Lab Results - Last 24 Hours (Table) 10/22/22 10/23/22 10/23/22 Range/Units 15:10 04:13 04:13 WBC 19.0 H (3.8-10.6) k/uL Plt Count 65 L (150-450) k/uL Neutrophils # 17.1 H (1.3-7.7) k/uL Lymphocytes # 0.7 L (1.0-4.8) k/uL Sodium 135 L (137-145) mmol/L Potassium 3.0 L (3.5-5.1) mmol/L Chloride 92 L (98-107) mmol/L Carbon Dioxide 41 H* (22-30) mmol/L Calcium 7.9 L (8.4-10.2) mg/dL
--- NOTE | 2022-10-23 11:12 | P.PN ---
Subjective Progress Note Date: 10/22/22 Kat Kim, is a 72-year-old female who presented to [facility] emergency room with a chief complaint difficulty with her speech, and right facial drooping, patient presented to emergency room with similar complaints yesterday, at that time she [facility] however she felt that she was improving and she opted to go home. However over the next several hours patient developed complete aphasia, she was brought back to the emergency room by her family. She was evaluated in the emergency room vital examination on presentation revealed a temperature of 99 pulse 84 respiration 18 blood pressure 160/87 pulse ox 94% on room air Laboratory data revealed a white blood count of 7.1 hemoglobin 14.6 platelet count 167 sodium 137 potassium 4.3 chloride 102 CO2 29 BUN 9 creatinine 0.56 urine analysis revealed no evidence of infection and urine toxicology screen was negative Testing in the emergency room revealed, computed tomography scan of the brain without contrast was done in the emergency room and revealed no acute intracranial process, CT angiogram of the brain done in the emergency room revealed no evidence of dissection of the cervical internal carotid arteries or vertebral arteries or any evidence of significant stenosis at the carotid bifurcation there was no evidence of intracranial high-grade stenosis or intracranial aneurysm Patient was admitted to medical floor for further evaluation and treatment, neurology consultation was requested Past medical history is significant for history of breast cancer, history of stacey ng cancer, history of atrial fibrillation, history of lower extremity DVT, patient was maintained on Xarelto At home On 10/02/2022. Patient is currently resting in room remains with difficulty in speech and right facial drooping. MRI of the brain was completed showing scattered foci of restricted diffusion compatible with acute or subacute CVA given multiple vascular distributions correlate for emboli phenomenon. Neurology services are following. Cardiology services also consulted. Current vital signs temp 98.1, heart rate 74, blood pressure 129/67 pulse ox of 94% on room air On 10/03/2022, patient was seen and examined on telemetry, case was discussed in details with Dr. Amadou López neurologist, patient is developing more difficulty with swallowing, recommendation from neurology is to proceed with JESUS, to rule out cardiac thrombus or PFO. However due to significant difficulty with swallowing, cardiology wanted to wait at this time on JESUS. Recommendation from neurology at this time is to proceed with upper and lower bilateral lower extremity Doppler to rule out acute DVT, and to start anticoagulation starting tomorrow. On 10/04/2022 patient is sitting comfortably in chair. Patient remains nonverbal. Pradaxa has been started per cardiology and neurology recommendations. Current vital signs temp 97.5, heart rate 77, respiratory rate 16, blood pressure 1 5476 with pulse ox 93% on room air. Per cardiology at this time JESUS remains on hold due to difficulty in swallowing. On 10/05/2022 patient was seen and examined on the medical she is alert and oriented 3 in no apparent distress, she is sitting up in a chair, she still has significant facial drooping, she has complete aphasia, she tries to answer questions by nodding her head, she is still having significant difficulty with swallowing, cardiology note reviewed, no plans for JESUS at this time due to difficulty swallowing and the risk of aspiration, she was started on Pradaxa for anticoagulation, she is having difficulty swallowing the pill as it cannot be crushed. At this time will continue with physical therapy, occupational therapy, and speech therapy, will reassess in a.m. On 10/06/2022 patient was seen and examined the medical floor she is alert and oriented in no apparent distress, she is sitting up in a chair she still has complete aphasia, she is having difficulty swallowing, she is complaining of constipation, otherwise she denies any complaints there is no fever or chills no headache or dizziness no chest pain no shortness of breath no cough no nausea or vomiting no abdominal pain no diarrhea and no urinary symptoms. At this time, JESUS will be delayed until patient has better swallowing per cardiology, possibility of rehab admission discussed with patient however she is indicating that she wants to go home, possible discharge to home tomorrow if stable and no further recommendation from cardiology or neurology On 10/07/2022 patient is currently sitting in chair. Patient's son at bedside. Per patient's son patient had a fall this a.m. due to new onset of weakness to her right arm. Patient denies any injuries from fall but does report that the right arm weakness started last night. This is new per son. At this time will do a head CT and discussed with nursing staff to notify neurology services. patient denies chest pain or shortness of breath. Patient denies nausea vomiting or diarrhea. Patient denies any urinary burning or frequency. On 10/08/2022 patient was seen and examined on the telemetry floor she is alert responsive in no apparent distress she is still completely aphasic, she is answering questions by nodding her head, she is still having right sided facial drooping and difficulty swallowing, she also now has complete paralysis of the right upper extremity, neurology are following closely, they recommended JESUS however per their notes patient has refused to complete test. Medication were reviewed will continue with current management will discuss with neurology further treatment steps. On 10/09/2022 patient is currently resting comfortably in bed. Patient have some movement to right extremity no further new neurological symptoms. Patient still having right-sided facial drooping and difficulty swallowing. Patient's son is at bedside per family trying to convince patient to move forward with JESUS. Neurology services are following this time patient denies chest pain or shortness of breath. Patient denies nausea vomiting or diarrhea. Patient denies any urinary burning or frequency On 10/10/2022 patient was seen and examined on the telemetry floor she is alert and oriented 3 in no apparent distress she is still having right facial drooping, complete expressive aphasia, difficulty swallowing, and right upper extremity paralysis, she is scheduled for JESUS today, awaiting further input from neurology and cardiology, possible transfer to rehab on Wednesday if stable and no further recommendation for any testing and intervention. On 10/11/2022 patient is alert and oriented 3 currently sitting up in chair. Patient continues to have right facial drooping complete expressive aphasia, difficulty swallowing and right upper extremity paralysis. No new neurological symptoms noted. Patient did have JESUS completed. White blood cell trending up 15.6 will order chest x-ray urinalysis blood culture and consult infectious dis ease. On 10/12/2022 patient was seen and examined on the telemetry floor she is alert and oriented in no apparent distress, she is still having right sided facial drooping, complete expressive aphasia, and difficulty swallowing, she is also having severe paralysis of the right upper extremity. I have discussed her case in details with Dr. Rondon and with Dr. Dye on neurology, patient failed on Xarelto and had a stroke while she was taking Xarelto, recommendation by cardiology was to switch to Pradaxa, which was done a few days ago, however patient was not able to swallow Pradaxa pills, and it's not recommended that those pills are crushed, so cardiology switched her back to Xarelto, however upon discussion today with neurology Dr. Amadou Dye, he recommended to switch to Eliquis. At this time will discontinue Xarelto today and start with Eliquis in a.m. tomorrow. Patient also has elevated white blood count possibly related to aspiration even though chest x-ray is not revealing evidence of pneumonia, patient is followed by infectious disease she is maintained on IV antibiotic, wi ll continue to follow closely. There is a bed available for patient in [facility] rehab unit, however due to elevated white blood count and use of IV antibiotics, she is not stable enough yet for transfer. Will follow in a.m.. Prognosis is guarded. On 10/13/2022 patient was seen and examined on the telemetry floor she is alert responsive in no apparent distress, clinically there is no significant change in her condition since yesterday, her white blood count is increasing up to 24.2 from 16.[address] Berg is following antibiotic were changed today to Zosyn, vital exam reveals a temperature of 97.8 pulse 56 respiration 18 blood pressure 140/73 pulse ox 91% on room air. No new recommendation from neurology or cardiology, will continue to follow closely, prognosis is guarded On 10/14/2022 patient is alert responsive sitting in bed patient does appear to have increased shortness of breath requiring increased oxygen at 5 L. This time a ordered stat chest x-ray and consult pulmonary services. Patient is on antibiotics of IV Zosyn. Infectious disease services are following. Patient denies chest pain. Patient denies nausea vomiting or diarrhea. 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 Patient is not appropriate to discharge to rehab at this point will continue to follow closely. On 10/16/2022 patient was seen and examined in the ICU, over night patient developed worsening shortness of breath, she was transferred from the telemetry floor to the ICU and was started on BiPAP, pulmonary is following, and are planning for thoracentesis this morning, otherwise no change in condition since yesterday, prognosis remains guarded, pulmonary cardiology infectious disease and neurology are following. On 10/17/2022 patient was seen and examined in the ICU, she is alert responsive in no apparent distress, she is still nonverbal, she has right sided facial drooping, aphasia, and the right upper extremity paralysis, her shortness of breath has improved significantly, patient had thoracentesis yesterday, she is still maintained on IV antibiotics and her white blood count came down from 28,000-20,000 over the last 2 days, at this time will continue with current management patient can be transferred out of ICU today, hopefully she will be transferred to rehab over the next few days. On 10/18/2022 patient was seen and examined on the telemetry floor she is alert responsive in no apparent distress, she still has complete aphasia, right sided facial drooping, and right upper extremity paralysis, she is able to communicate by answering questions yes and no, she denies any pain or discomfort at this time, there is no evidence of shortness of breath at rest, chest x-ray reviewed and reveals worsening airspace disease throughout the right lung and similar airspace disease and pleural effusion on the left, no plans for repeat thoracentesis at this time per pulmonary. Labs today are still pending, white blood count was down to 20,000 yesterday patient is maintained on IV Zosyn and IV linezolid, infectious disease following, clinically patient is improving gradually, prognosis remains guarded, plan is to transfer to [facility] rehab when stable. On 10/19/2022 patient is sitting in chair alert and responsive remains with complete aphasia. Vital signs temp 97, heart rate 96, respiratory rate 20, blood pressure 166/79 potassium low at 3.1 replacement protocol. Patient remains on high flow nasal cannula 5 L. On 10/20/2022 patient was seen and examined on the telemetry floor she is alert responsive in no apparent distress, she still has complete aphasia, right sided facial drooping, and right upper extremity paralysis, patient is sitting up in a chair comfortably she denies any complaints. White blood count today 23.7 On 10/21/2022 patient currently sitting up in bed remains aphasic. Increased oxygen demand concerns for possible aspiration. chest x-ray ordered. Recommendations for possible PEG tube placement due to reoccurring aspiration. Unable to assess patient mentation due to aphasia family concerned over patient competence in regards to decision about PEG tube placement will consult psychiatry services to assess patient's competency and decision-making ability. We'll also reconsult pulmonary services due to increased oxygen demands. Patient does have elevated heart rate Cardizem ordered per cardiology services. On 10/22/2022 patient was seen and examined in the ICU, during the last night patient had worsening breathing difficulty, she was transferred to ICU and started on BiPAP, patient is alert responsive in mild respiratory distress. Vital exam today reveals a temperature of 98 pulse 72 respiration 28 blood pressure 145/75 pulse ox 91% on BiPAP, white blood count 19.7 hemoglobin 11.8 platelet count 75, pulmonary critical care are following, prognosis guarded. Objective - Vital Signs Vital signs: Vital Signs Temp 98 F 10/22/22 08:00 Pulse 73 10/22/22 09:30 Resp 24 10/22/22 09:30 BP 127/59 10/22/22 09:30 Pulse Ox 96 10/22/22 09:30 FiO2 70 10/22/22 08:00 Intake & Output 10/21/22 10/22/22 10/22/22 18:59 06:59 18:59 Intake Total 110 265 360 Output Total 500 Balance 110 265 -140 Weight 68.7 kg 70.8 kg Intake: IV 140 160 Piperacillin-Tazobactam 3 100 .375 gm In Sodium Chloride 0.9% 100 ml @ 25 mls/hr IVPB Q8HR [facility] Rx# :[id number] Sodium Chloride 0.9% 1, 140 60 000 ml @ 20 mls/hr IV . Q24H [facility] Rx#:[id number] Intake, IV Titration 125 200 Amount Diltiazem 125 mg In 125 Sodium Chloride 0.9% 100 ml @ 10 MG/HR 10 mls/hr IV .[id number] [facility] Rx#: [id number] Potassium Chloride 10 meq 200 In Water For Injection 1 100ml.bag @ 100 mls/hr IVPB Q1HR [facility] Rx#: [id number] Oral 110 Output: Urine 500 Other: Voiding Method Indwelling Catheter Diaper External Catheter # Voids 1 0 1 # Bowel Movements 1 - Exam In general patient is alert and oriented, able to communicate by writing on board in no apparent distress HEENT head normocephalic and atraumatic Neck is supple no JVD no goiter no lymphadenopathy no carotid bruit Chest examination is clear to auscultation no crackles no wheezing Cardiac exam reveals regular heart sounds S1 and S2 no gallops no murmurs Abdomen is soft nontender no organomegaly with normal bowel sounds Extremity exam reveals no edema no cyanosis or clubbing Neurological examination reveals complete expressive aphasia, and right facial drooping otherwise no focal deficit - Labs CBC & Chem 7: 10/22/22 03:42 10/22/22 03:42 Labs: Abnormal Lab Results - Last 24 Hours (Table) 10/21/22 10/21/22 10/21/22 Range/Units 23:33 23:42 23:42 WBC 20.9 H (3.8-10.6) k/uL Plt Count 79 L (150-450) k/uL Neutrophils # 19.4 H (1.3-7.7) k/uL Lymphocytes # 0.6 L (1.0-4.8) k/uL ABG pH (7.35-7.45) ABG pCO2 (35-45) mmHg ABG pO2 (83-108) mmHg ABG HCO3 (21-25) mmol/L ABG Total CO2 (19-24) mmol/L ABG O2 Saturation (94-97) % Potassium (3.5-5.1) mmol/L Chloride (98-107) mmol/L Carbon Dioxide 34 H (22-30) mmol/L Glucose 130 H (74-99) mg/dL POC Glucose (mg/dL) 123 H (70-110) mg/dL Calcium (8.4-10.2) mg/dL Alkaline Phosphatase (38-126) U/L Total Protein (6.3-8.2) g/dL Albumin (3.5-5.0) g/dL Procalcitonin (0.02-0.09) ng/mL 10/21/22 10/22/22 10/22/22 Range/Units 23:43 03:42 03:42 WBC 19.7 H (3.8-10.6) k/uL Plt Count 75 L (150-450) k/uL Neutrophils # 18.2 H (1.3-7.7) k/uL Lymphocytes # 0.6 L (1.0-4.8) k/uL ABG pH 7.30 L (7.35-7.45) ABG pCO2 69 H (35-45) mmHg ABG pO2 61 L (83-108) mmHg ABG HCO3 34 H (21-25) mmol/L ABG Total CO2 36 H (19-24) mmol/L ABG O2 Saturation 90.0 L (94-97) % Potassium 3.3 L (3.5-5.1) mmol/L Chloride 97 L (98-107) mmol/L Carbon Dioxide 38 H (22-30) mmol/L Glucose 100 H (74-99) mg/dL POC Glucose (mg/dL) (70-110) mg/dL Calcium 7.9 L (8.4-10.2) mg/dL Alkaline Phosphatase 169 H (38-126) U/L Total Protein 4.8 L (6.3-8.2) g/dL Albumin 2.4 L (3.5-5.0) g/dL Procalcitonin (0.02-0.09) ng/mL 10/22/22 Range/Units 06:00 WBC (3.8-10.6) k/uL Plt Count (150-450) k/uL Neutrophils # (1.3-7.7) k/uL Lymphocytes # (1.0-4.8) k/uL ABG pH (7.35-7.45) ABG pCO2 (35-45) mmHg ABG pO2 (83-108) mmHg ABG HCO3 (21-25) mmol/L ABG Total CO2 (19-24) mmol/L ABG O2 Saturation (94-97) % Potassium (3.5-5.1) mmol/L Chloride (98-107) mmol/L Carbon Dioxide (22-30) mmol/L Glucose (74-99) mg/dL POC Glucose (mg/dL) (70-110) mg/dL Calcium (8.4-10.2) mg/dL Alkaline Phosphatase (38-126) U/L Total Protein (6.3-8.2) g/dL Albumin (3.5-5.0) g/dL Procalcitonin 0.11 H (0.02-0.09) ng/mL Microbiology - Last 24 Hours (Table) 10/16/22 09:45 Gram Stain - Final Pleural Fluid Body Fluid Culture - Final Assessment and Plan Plan: Expressive aphasia and right facial droop secondary to ischemic stroke Reoccurring ischemic stroke with right arm paralysis Bilateral pleural effusions status post thoracentesis on 10/16/2022 cytology pending Leukocytosis secondary to possible aspiration pneumonia. Patient remains on IV antibiotics infectious disease service is consulted Recurring aspiration pneumonia. Dr. alonso consulted for possible PEG tube placement Underlying history of lung cancer Underlying history of breast cancer Previous history of DVT 3 weeks ago, maintained on Xarelto Underlying history of left pleural effusion History of atrial fibrillation At this time patient was seen and examined in the emergency room Home medications reviewed and reordered Cardiology, pulmonary, infectious disease and neurology service is following Psychiatry service is consulted to assess competency and decision-making ability Surgical service is consulted for possible PEG tube placement JESUS completed on 10/10/2022 Will follow closely
[2022-10-23] MEDS: ENOXAPARIN 60 MG/0.6 ML SYRINGE SQ SCH ×2 (12:00→20:27)
--- NOTE | 2022-10-23 14:51 | P.PN ---
Subjective Progress Note Date: 10/23/22 Principal diagnosis: Leukocytosis Patient is a 72-year-old female with multiple comorbidities has been in the hospital for more than 10 days currently being evaluated and treatment for possible stroke and noticed to have elevated white count. On today's evaluation that is 10/23/2022, the patient remains to be afebrile patient remains to be lethargic currently on a 15 L high flow oxygen to maintain her O2 sats did not provide any history no vomiting or diarrhea has been reported by nursing staff Objective - Vital Signs Vital signs: Vital Signs Temp 97.6 F 10/23/22 12:00 Pulse 95 10/23/22 12:00 Resp 27 H 10/23/22 12:00 BP 150/73 10/23/22 12:00 Pulse Ox 94 L 10/23/22 12:00 FiO2 70 10/23/22 11:04 Intake & Output 10/22/22 10/23/22 10/23/22 18:59 06:59 18:59 Intake Total 1220 1263.167 442.5 Output Total 1750 2400 1300 Balance -530 -1136.833 -857.5 Weight 67.4 kg 67.4 kg Intake: IV 620 1140 220 Linezolid 600 mg In 300 Dextrose/Water 1 300ml. bag @ 150 mls/hr IVPB Q12HR [facility] Rx#:[id number] Piperacillin-Tazobactam 3 400 100 100 .375 gm In Sodium Chloride 0.9% 100 ml @ 25 mls/hr IVPB Q8HR [facility] Rx# :[id number] Potassium Chloride 10 meq 500 In Water For Injection 1 100ml.bag @ 100 mls/hr IVPB Q1HR [facility] Rx#: [id number] Sodium Chloride 0.9% 1, 220 240 120 000 ml @ 20 mls/hr IV . Q24H [facility] Rx#:[id number] Intake, IV Titration 600 123.167 222.5 Amount Diltiazem 125 mg In 123.167 122.5 Sodium Chloride 0.9% 100 ml @ 10 MG/HR 10 mls/hr IV .[id number] [facility] Rx#: [id number] Linezolid 600 mg In 200 Dextrose/Water 1 300ml. bag @ 150 mls/hr IVPB Q12HR [facility] Rx#:[id number] Potassium Chloride 10 meq 400 In Water For Injection 1 100ml.bag @ 100 mls/hr IVPB Q1HR [facility] Rx#: [id number] Potassium Chloride 10 meq 100 In Water For Injection 1 100ml.bag @ 100 mls/hr IVPB Q1HR [facility] Rx#: [id number] Output: Urine 1750 2400 1300 Uretheral (Camacho) 175 Other: Voiding Method Indwelling Catheter Indwelling Catheter Indwelling Catheter # Voids 1 - Exam GENERAL DESCRIPTION: Elderly female up in the chair in no distress RESPIRATORY SYSTEM: Unlabored breathing , decreased breath sounds at bases HEART: S1 S2 regular rate and rhythm ,no loud murmurs ABDOMEN: Soft , no tenderness EXTREMITIES: No edema feet - Labs CBC & Chem 7: 10/23/22 04:13 10/23/22 09:16 Labs: Abnormal Lab Results - Last 24 Hours (Table) 10/22/22 10/23/22 10/23/22 Range/Units 15:10 04:13 04:13 WBC 19.0 H (3.8-10.6) k/uL Plt Count 65 L (150-450) k/uL Neutrophils # 17.1 H (1.3-7.7) k/uL Lymphocytes # 0.7 L (1.0-4.8) k/uL Sodium 135 L (137-145) mmol/L Potassium 3.0 L (3.5-5.1) mmol/L Chloride 92 L (98-107) mmol/L Carbon Dioxide 41 H* (22-30) mmol/L Calcium 7.9 L (8.4-10.2) mg/dL Assessment and Plan (1) Leukocytosis Current Visit: Yes Status: Acute Code(s): D72.829 - ELEVATED WHITE BLOOD CE LL COUNT, UNSPECIFIED SNOMED Code(s): 343414706 (2) Pneumonia Current Visit: Yes Status: Acute Code(s): J18.9 - PNEUMONIA, UNSPECIFIED ORGANISM SNOMED Code(s): 489470356 Plan: 1-Patient did have off-and-on worsening of respiratory status as well as up and down in the white count concerning for possible recurrent aspiration pneumonia plan is for PEG tube placement , which has been put on hold because of worsening Respiratory status, patient currently being treated with Zosyn along with aspiration precautions and monitor clinical course closely, prognosis guarded Time with Patient: Less than 30
--- NOTE | 2022-10-23 15:43 | P.PN ---
Subjective Progress Note Date: 10/23/22 Principal diagnosis: History of breast cancer, metastatic lung cancer, on treatment for both. Admitted with CVA symptoms In f/u today patient is seen in ICU, responsive to voice and touch, not very interactive. Objective - Vital Signs Vital signs: Vital Signs Temp 97.6 F 10/23/22 12:00 Pulse 98 10/23/22 15:00 Resp 31 H 10/23/22 15:00 BP 155/78 10/23/22 15:00 Pulse Ox 94 L 10/23/22 15:00 FiO2 70 10/23/22 11:04 Intake & Output 10/22/22 10/23/22 10/23/22 18:59 06:59 18:59 Intake Total 1220 1263.167 502.5 Output Total 1750 2400 1645 Balance -530 -1136.833 -1142.5 Weight 67.4 kg 67.4 kg Intake: IV 620 1140 280 Linezolid 600 mg In 300 Dextrose/Water 1 300ml. bag @ 150 mls/hr IVPB Q12HR [facility] Rx#:[id number] Piperacillin-Tazobactam 3 400 100 100 .375 gm In Sodium Chloride 0.9% 100 ml @ 25 mls/hr IVPB Q8HR [facility] Rx# :[id number] Potassium Chloride 10 meq 500 In Water For Injection 1 100ml.bag @ 100 mls/hr IVPB Q1HR [facility] Rx#: [id number] Sodium Chloride 0.9% 1, 220 240 180 000 ml @ 20 mls/hr IV . Q24H [facility] Rx#:[id number] Intake, IV Titration 600 123.167 222.5 Amount Diltiazem 125 mg In 123.167 122.5 Sodium Chloride 0.9% 100 ml @ 10 MG/HR 10 mls/hr IV .[id number] [facility] Rx#: [id number] Linezolid 600 mg In 200 Dextrose/Water 1 300ml. bag @ 150 mls/hr IVPB Q12HR [facility] Rx#:[id number] Potassium Chloride 10 meq 400 In Water For Injection 1 100ml.bag @ 100 mls/hr IVPB Q1HR [facility] Rx#: [id number] Potassium Chloride 10 meq 100 In Water For Injection 1 100ml.bag @ 100 mls/hr IVPB Q1HR [facility] Rx#: [id number] Output: Urine 1750 2400 1645 Uretheral (Camacho) 175 Other: Voiding Method Indwelling Catheter Indwelling Catheter Indwelling Catheter # Voids 1 - Constitutional General appearance: Present: average body habitus, no acute distress - Respiratory Details: Mildly labored respirations at rest - Psychiatric Psychiatric Comment(s): Lethargic - Labs CBC & Chem 7: 10/23/22 04:13 10/23/22 09:16 Labs: Abnormal Lab Results - Last 24 Hours (Table) 10/22/22 10/23/22 10/23/22 Range/Units 15:10 04:13 04:13 WBC 19.0 H (3.8-10.6) k/uL Plt Count 65 L (150-450) k/uL Neutrophils # 17.1 H (1.3-7.7) k/uL Lymphocytes # 0.7 L (1.0-4.8) k/uL Sodium 135 L (137-145) mmol/L Potassium 3.0 L (3.5-5.1) mmol/L Chloride 92 L (98-107) mmol/L Carbon Dioxide 41 H* (22-30) mmol/L Calcium 7.9 L (8.4-10.2) mg/dL Assessment and Plan (1) Cerebrovascular accident (CVA) Current Visit: Yes Status: Acute Priority: High Code(s): I63.9 - CEREBRAL INFARCTION, UNSPECIFIED SNOMED Code(s): 162215957 (2) Cancer of lung Current Visit: Yes Status: Acute Priority: High Code(s): C34.90 - MALIGNANT NEOPLASM OF UNSP PART OF UNSP BRONCHUS OR LUNG SNOMED Code(s): 169252045 (3) History of breast cancer Current Visit: Yes Status: Chronic Priority: High Code(s): Z85.3 - PERSONAL HISTORY OF MALIGNANT NEOPLASM OF BREAST SNOMED Code(s): 454330146 Plan: Recurrent CVA -eliquis and plavix. No evidence of bleeding, hemoglobin stable -APL ab workup negative Breast cancer -cont arimidex. Met NSCLC -Cytology on thoracentesis positive for recurrent malignancy. Discontinue tagrisso. Pt condition continues to decline. She is not having even minimal response to medical interventions. Family has decided for no CODE STATUS. Family is having informational session with hospice which is reasonable considering patient decli ne.
[2022-10-23] MEDS: SODIUM CHLORIDE 0.9% 1,000 ML IV SCH (16:39)
[2022-10-23] MEDS: ATORVASTATIN 40 MG TAB PO SCH (21:09)
[2022-10-24] MEDS: PIPERACILLIN-TAZOBACTAM 3.375 GM in SODIUM CHLORIDE 0.9% 100 ML IVPB SCH ×4 (00:17→23:57)
[2022-10-24] MEDS: LORazepam 2 MG/ML INJ IV PRN ×3 (00:26→23:46)
[2022-10-24 04:21] LABS: Basophils % (A) 0 %; Eosinophils # (A) 0.2 k/uL (0-0.7); Eosinophils % (A) 1 %; HCT 37.1 % (34.0-46.0); HGB 12.2 gm/dL (11.4-16.0); Lymphocytes # (A) 0.8 k/uL (1.0-4.8); Lymphocytes % (A) 5 %; MCH 29.9 pg (25.0-35.0); MCHC 32.9 g/dL (31.0-37.0); MCV 90.7 fL (80.0-100.0); Mean Platelet Volume 9.9; Monocytes # (A) 0.8 k/uL (0-1.0); Monocytes % (A) 5 %; Neutrophils # (A) 15.5 k/uL (1.3-7.7); Neutrophils % (A) 90 %; RBC 4.09 m/uL (3.80-5.40); RDW 13.8 % (11.5-15.5); WBC 17.3 k/uL (3.8-10.6)
[2022-10-24 04:25] LABS: Platelet Count 78 k/uL (150-450)
[2022-10-24 04:41] LABS: ALT 26 U/L (4-34); AST 40 U/L (14-36); African American GFR (CKD) >90 (>60 ml/min/1.73 sqM); Albumin 2.7 g/dL (3.5-5.0); Alkaline Phosphatase 170 U/L (38-126); Blood Urea Nitrogen 15 mg/dL (7-17); Calcium 8.1 mg/dL (8.4-10.2); Chloride 88 mmol/L (98-107); Glucose 70 mg/dL (74-99); Non-African American GFR(CKD) >90 (>60 ml/min/1.73 sqM); Potassium 3.1 mmol/L (3.5-5.1); Sodium 134 mmol/L (137-145); Total Bilirubin 0.8 mg/dL (0.2-1.3); Total Protein 5.2 g/dL (6.3-8.2)
[2022-10-24 04:48] LABS: Anion Gap 7 mmol/L; Carbon Dioxide 39 mmol/L (22-30)
[2022-10-24] MEDS: POTASSIUM CHLORIDE 10 MEQ in WATER FOR INJECTION 1 100ML.BAG IVPB SCH ×7 (05:58→23:55)
[2022-10-24] MEDS: lisinopriL 5 MG TAB PO SCH ×2 (09:03→23:48)
[2022-10-24] MEDS: DOCUSATE 100 MG CAP PO SCH ×2 (09:03→23:48)
[2022-10-24] MEDS: LACTULOSE 20 GM/30 ML CUP PO SCH ×4 (09:03→23:48)
[2022-10-24] MEDS: carvediloL 3.125 MG TAB PO SCH ×2 (09:03→10:28)
[2022-10-24] MEDS: ANASTROZOLE 1 MG TAB PO SCH (09:03)
--- NOTE | 2022-10-24 09:09 | P.PN ---
Subjective Progress Note Date: 10/24/22 Principal diagnosis: Malnutrition Patient remains in the ICU. She is somewhat confused today. She is on BiPAP. In no distress currently. Objective - Vital Signs Vital signs: Vital Signs Temp 98.3 F 10/24/22 04:00 Pulse 84 10/24/22 06:00 Resp 21 10/24/22 06:00 BP 138/66 10/24/22 06:00 Pulse Ox 95 10/24/22 06:00 FiO2 70 10/24/22 07:57 Intake & Output 10/23/22 10/24/22 10/24/22 18:59 06:59 18:59 Intake Total 562.5 585 Output Total 1620 1411 Balance -1057.5 -826 Weight 67.4 kg 66.7 kg Intake: IV 340 360 Piperacillin-Tazobactam 3 100 100 .375 gm In Sodium Chloride 0.9% 100 ml @ 25 mls/hr IVPB Q8HR [facility] Rx# :[id number] Sodium Chloride 0.9% 1, 240 260 000 ml @ 20 mls/hr IV . Q24H [facility] Rx#:[id number] Intake, IV Titration 222.5 225 Amount Diltiazem 125 mg In 122.5 125 Sodium Chloride 0.9% 100 ml @ 10 MG/HR 10 mls/hr IV .[id number] [facility] Rx#: [id number] Potassium Chloride 10 meq 100 In Water For Injection 1 100ml.bag @ 100 mls/hr IVPB Q1HR [facility] Rx#: [id number] Potassium Chloride 10 meq 100 In Water For Injection 1 100ml.bag @ 100 mls/hr IVPB Q1HR [facility] Rx#: [id number] Output: Urine 1620 1411 Other: Voiding Method Indwelling Catheter Indwelling Catheter - Exam Abdomen: Soft, nontender, nondistended - Labs CBC & Chem 7: 10/24/22 04:06 10/24/22 04:06 Labs: Abnormal Lab Results - Last 24 Hours (Table) 10/24/22 10/24/22 Range/Units 04:06 04:06 WBC 17.3 H (3.8-10.6) k/uL Plt Count 78 L (150-450) k/uL Neutrophils # 15.5 H (1.3-7.7) k/uL Lymphocytes # 0.8 L (1.0-4.8) k/uL Sodium 134 L (137-145) mmol/L Potassium 3.1 L (3.5-5.1) mmol/L Chloride 88 L (98-107) mmol/L Carbon Dioxide 39 H (22-30) mmol/L Glucose 70 L (74-99) mg/dL Calcium 8.1 L (8.4-10.2) mg/dL AST 40 H (14-36) U/L Alkaline Phosphatase 170 H (38-126) U/L Total Protein 5.2 L (6.3-8.2) g/dL Albumin 2.7 L (3.5-5.0) g/dL Assessment and Plan (1) Malnutrition Narrative/Plan: Patient still having significant pulmonary issues. On BiPAP currently. Family still discussing extent of care options. We'll follow for possible PEG tube if clinical status improves. Current Visit: Yes Status: Acute Code(s): E46 - UNSPECIFIED PROTEIN-CALORIE MALNUTRITION SNOMED Code(s): 68526731
[2022-10-24] MEDS: PANTOPRAZOLE 40 MG/10 ML VIAL IVP SCH (09:34)
[2022-10-24] MEDS: FUROSEMIDE 10 MG/ML 4 ML VIAL IV SCH ×2 (09:34→22:28)
[2022-10-24] MEDS: ENOXAPARIN 60 MG/0.6 ML SYRINGE SQ SCH ×2 (09:34→23:55)
--- NOTE | 2022-10-24 09:44 | P.PN ---
Subjective Progress Note Date: 10/23/22 10/23/2022: Patient was seen for follow-up. Patient's son was also present today and I had a prolonged discussion with patient's son. They're considering hospice care, but not able to make full decision. Patient's daughter is also coming today, and both of these children will discuss today. Patient is otherwise alert, sleeps well, responds well, but not able to undergo PEG placement because of breathing issues. 10/22/2022: Patient was seen for a follow-up. Patient is laying comfortably in the bed, has BiPAP on. Patient was transferred to ICU because of respiratory distress. Patient could not undergo PEG tube placement today. 10/21/2022: Patient was seen for a follow-up. Patient is laying comfortably in the bed. Patient clinically unchanged. Still with significant aphasia, right hemiparesis. Patient apparently has admitted for PEG tube placement, which will be done tomorrow. 10/20/2022: Patient was seen for a follow-up. Patient is sitting comfortably in the recliner. Patient continues to be significantly aphasic, right hemiparetic. Patient is declining NG tube or PEG tube placement. She is now on regular floor 357. 10/15/2022: Patient was seen for follow-up. Patient since last seen, was followed up by Dr. Amadou Dye. Please refer to his note for details. Patient at present is in ICU in bed #264. She was transferred to the ICU because of large left pleural effusion. Patient also had runs of SVT last night for which an A-team was activated. 10/07/2022: Patient has developed new focal symptoms as of this morning. Patient has developed right arm weakness, which is very noticeable. This is an acute change. Patient continues to be severely expressively aphasic. Her comprehension appears to be slightly worse today. Patient admits to having headache. 10/06/2022: Patient was seen for a follow-up. Patient is sitting comfortably in the recliner. Denies any headache. Family members were not present today. Patient continues to be severely aphasic with anarthria. Telemetry monitoring showing sinus rhythm. 10/05/2022: Patient initially seen by Dr. Amadou Dye. Please refer to his note for details. Patient is a 72-year-old right-handed female with history of stage IV lung cancer, came with global aphasia and muteness. Patient's daughter was present, who provided with history. On Wednesday evening 09/30/2022 at 7 PM, while cutting vegetables, she stopped getting the jaycob and started drooling for 15 minutes. She was brought to the hospital and her speech returned back to baseline. She was sent home, and next day on at 9:30 AM, she stopped talking and has never regained speech yet. MRI of the brain revealed multiple bilateral hemispheric stroke, left slightly more than right. Patient has history of DVT 3 weeks ago and atrial fibrillation and was on Xarelto but appears failed. Patient was started on broad neck side yesterday. JESUS is pending. Patient's daughter was also present, who states that patient is cognitively intact. She understands everything, but cannot express herself which makes her very frustrated. Some of the workup during his hospital visit consisted of: Lipid panel triglycerides 79, cholesterol is 204, LDLs 128, HDL 59. CT head is reported as no acute intracranial process. I personally reviewed that a CT and there is no acute or subacute ischemia seen. There is no mass affect. CT angiography of the head and neck was reported as no evidence of dissection of the cervical internal carotid arteries or vertebral artery or any evidence of significant stenosis at the carotid bifurcation. No evidence of intracranial high-grade stenosis or intracranial aneurysm. Intracranial atherosclerosis of the internal carotid artery without hemodynamic stenosis. Right and increased size of left pleural effusion. There is a pleural sign in the left which could represent empyema. Persistent that scattered nodular opacity likely representing metastatic disease from the patient known malignancy. EKG is reported as sinus rhythm. Low QRS voltage URIne Drug screen is negative. MRI brain is reported as scattered foci of restricted diffusion compatible with acute/subacute CVA. Given multiple vascular distribution correlate for embolic phenomena. No abnormal postcontrast enhancement the, no evidence for mass. Nonspecific white matter changes likely secondary to chronic small vessel ischemic disease. I personally reviewed the MRI and I agree with the report. Patient has restriction diffusion over bilateral frontal left more than the right with right parietal occipital region The echo was reported as suboptimal acoustic windows. Contrast echo study performed. Borderline normal left ventricle systolic function septal bulge. There is septal and inferior basal hypokinesis. Routine EEG is normal. There is no focal slowing, epileptiform discharges or seizure on the EEG. Venous duplex of the upper and lower extremities negative Objective - Vital Signs Vital signs: Vital Signs Temp 98.3 F 10/24/22 04:00 Pulse 84 10/24/22 06:00 Resp 21 10/24/22 06:00 BP 138/66 10/24/22 06:00 Pulse Ox 95 10/24/22 06:00 FiO2 70 10/24/22 07:57 Intake & Output 10/23/22 10/24/22 10/24/22 18:59 06:59 18:59 Intake Total 562.5 585 Output Total 1620 1411 Balance -1057.5 -826 Weight 67.4 kg 66.7 kg Intake: IV 340 360 Piperacillin-Tazobactam 3 100 100 .375 gm In Sodium Chloride 0.9% 100 ml @ 25 mls/hr IVPB Q8HR [facility] Rx# :[id number] Sodium Chloride 0.9% 1, 240 260 000 ml @ 20 mls/hr IV . Q24H [facility] Rx#:[id number] Intake, IV Titration 222.5 225 Amount Diltiazem 125 mg In 122.5 125 Sodium Chloride 0.9% 100 ml @ 10 MG/HR 10 mls/hr IV .[id number] [facility] Rx#: [id number] Potassium Chloride 10 meq 100 In Water For Injection 1 100ml.bag @ 100 mls/hr IVPB Q1HR [facility] Rx#: [id number] Potassium Chloride 10 meq 100 In Water For Injection 1 100ml.bag @ 100 mls/hr IVPB Q1HR [facility] Rx#: [id number] Output: Urine 1620 1411 Other: Voiding Method Indwelling Catheter Indwelling Catheter - Exam Patient is alert and awake, laying comfortably in the bed. Patient is severely aphasic. Mute, not able to speak any words. Patient not able to point to the window, to the ceiling or the door. She has partial comprehension. Cranial nerves significant for pupils equal, round and reacting. Patient would not understand directions to check for visual patel. Patient sticks out her tongue when she tries to talk sometimes. No words comes out of her mouth otherwise. Patient has right facial asymmetry. Patient is flaccid in the right upper limb with no movement. The strength is normal in the left upper limb. Her strength is normal in the lower limbs - Labs CBC & Chem 7: 10/24/22 04:06 10/24/22 04:06 Labs: Abnormal Lab Results - Last 24 Hours (Table) 10/24/22 10/24/22 Range/Units 04:06 04:06 WBC 17.3 H (3.8-10.6) k/uL Plt Count 78 L (150-450) k/uL Neutrophils # 15.5 H (1.3-7.7) k/uL Lymphocytes # 0.8 L (1.0-4.8) k/uL Sodium 134 L (137-145) mmol/L Potassium 3.1 L (3.5-5.1) mmol/L Chloride 88 L (98-107) mmol/L Carbon Dioxide 39 H (22-30) mmol/L Glucose 70 L (74-99) mg/dL Calcium 8.1 L (8.4-10.2) mg/dL AST 40 H (14-36) U/L Alkaline Phosphatase 170 H (38-126) U/L Total Protein 5.2 L (6.3-8.2) g/dL Albumin 2.7 L (3.5-5.0) g/dL Assessment and Plan Assessment: Recurrent ischemic strokes. Patient has failed Pradaxa, Xarelto in the recent past with breakthrough strokes. Patient at present is severely aphasic, right hemiplegic, mainly involving the facial brachial region. Dysphagia, due to above. Acute ischemic stroke (over bilateral hemisphere: bilateral frontal L>R, right parietal and occipital region). Stroke appears embolic in nature: Probable cardioembolic. Patient currently on Eliquis. Leukocytosis and possible pneumonia. Patient on Zosyn and Linezolid, ID on board. Metastatic non-small cell lung cancer History of right breast cancer, on Arimidex History of recent DVT about 3 weeks ago and was on Xarelto History of pleural effusion, status post thoracentesis 1300 serosanguineous fluid removed, positive for malignancy History of atrial fibrillation and in past was on anticoagulation then stopped then after DVT 3 weeks ago restarted it Plan: Patient is neurologically stable. She continues to be aphasic, and plegic in the right upper extremity. Patient not able to take Eliquis due to dysphagia, and PEG tube could not be placed due to pulmonary issues. Patient started on full dose Lovenox anticoagulation. Patient had recurrent ischemic strokes. CTA of head and neck showed no significant change from recent CTA study. No LVO. Patient has failed Xarelto and Pradaxa. Patient is now on Eliquis and also on Plavix. Psychiatry has seen the patient, and patient is not competent to make decision. JESUS performed 10/10/2022 revealed normal appearance left atrial appendage. Normal left ventricular size and systolic function. No shunting across the intra-atrial septum. Mild mitral and tricuspid regurgitation. Aortic valve sclerosis without stenosis. Continue Lipitor 40 mg daily at bedtime second stroke prophylaxis Routine EEG normal. Cardiac monitoring PT OT and GENETICS PHYSICIAN are consulted. Patient is declining feeding tube. She is at risk for aspiration. Cardiology is on board. Pulmonary team is consulted for pleural effusion and history of lung cancer We'll defer the rest of the medical management to primary team For DVT prophylaxis: Vianney. I had a prolonged discussion with patient's son. They are considering hospice care because of presence of terminal disease (metastatic lung cancer), and her poor quality of life with multiple strokes. Patient's son will discuss with his sister later today. Overall long-term prognosis is poor based upon multiple medical conditions as above.
--- NOTE | 2022-10-24 10:24 | P.PN ---
Subjective Progress Note Date: 10/24/22 Principal diagnosis: Pleural effusion, chronic. Pulmonary/critical care consult dated 10/02/2022. 72-year-old female with a history of breast cancer, presents to the emergency de partment on October 01, complaining of strokelike symptoms. The patient apparently had a slight right-sided facial droop, and was unable to speak. The patient was admitted to the hospital, and we are asked to see her for her chronic left-sided effusion. The patient has had a thoracentesis in the past, which I believe was done at [facility]. Currently, the patient's on room air, and not rece iving any IV fluids. The speech pathologist was in room with her. We saw her in 378. Her medical history includes rest cancer, hypertension, myocardial infarction, osteoarthritis, and apparently the patient is a lifelong nonsmoker. She has had a catheterization with stent placement in her right coronary artery. She appears in no distress. CBC is completely normal. PT 12.3 with an INR 1.2. PTT is 31.6. Electrolytes are normal including sodium, potassium, chloride, carbon dioxide, anion gap, BUN, and creatinine. Glucose 104. The rest of the comprehensive metabolic profile is essentially normal. Urine is negative. Drug screen was negative. Chest x-ray shows a moderate left-sided e ffusion, and a small right-sided effusion. Brain CT was negative. Angiography, CT, showed no evidence of high-grade stenosis. Brain MRI showed scattered foci of restricted diffusion compatible with acute subacute LINDA. There were multiple vascular distributions. No evidence for mass. Progress note dated 10/03/2022. 72-year-old female with history of breast cancer, and chronic left-sided pleural effusion. The patient was admitted with a diagnosis of stroke. She is currently seeing neurology. She stable from the pulmonary standpoint. She's on room air. She's not receiving any IV fluids. The patient has a right facial droop, and is aphasic. CBC today is normal. Sodium 140, potassium 3.8, chlorides 105, CO2 27, anion gap 8, BUN 15, and creatinine 0.56. Progress note dated 10/23/2022. 73-year-old female with a history of breast cancer, as well as lung cancer. I last saw the patient on October 03. Please see the note above. Currently, the patient's resting comfortably in the intensive care unit. She is in room 259. She was to have a PEG tube placed, but I told the surgeon, that she was too unstable to have it done today. She's currently on BiPAP, with settings of 10/5 and 70%. She's getting Cardizem at 10 mg an hour, and saline at 10 mL an hour. The Zyvox is discontinued. She remains on Zosyn. The patient is now a DO NOT RESUSCITATE patient. I spoke to the nurses about the possibility of the patient having a hospice or palliative care consult. It will be discussed with her son. White count is 19, hemoglobin 12, hematocrit 36.1, and platelet count 65,000. Sodium 135, potassium 3.8, chlorides 92, CO2 41, with a normal BUN and creatinine. Chest x-ray shows worsening diffuse airspace disease, compared to prior x-rays. Progress note dated 10/24/2022. 73-year-old female seen today in room 259. She has a history of both lung cancer, and breast cancer. The patient is currently on BiPAP, with settings of 10/5 and 70%. She spent almost the entire night on BiPAP. She's also getting saline at KVO, and a Cardizem drip at 10 mg an hour. The patient is a DO NOT RESUSCITATE patient. Apparently, hospice did have a conversation with the family. White count 17.3, hemoglobin 12.2, hematocrit 37.1, and platelet count 78,000. Sodium 134, potassium 3.1, chlorides 88, CO2 39, BUN 15, and creatinine 0.60. Microbiologic sampling has been negative thus far. No chest x-ray today. Objective - Vital Signs Vital signs: Vital Signs Temp 97.9 F 10/24/22 08:00 Pulse 88 10/24/22 09:00 Resp 24 10/24/22 09:00 BP 126/63 10/24/22 09:00 Pulse Ox 95 10/24/22 09:00 FiO2 70 10/24/22 08:00 Intake & Output 10/23/22 10/24/22 10/24/22 18:59 06:59 18:59 Intake Total 562.5 585 220 Output Total 1620 1411 70 Balance -1057.5 -826 150 Weight 67.4 kg 66.7 kg Intake: IV 340 360 120 Piperacillin-Tazobactam 3 100 100 100 .375 gm In Sodium Chloride 0.9% 100 ml @ 25 mls/hr IVPB Q8HR NE[facility] Rx# :[id number] Sodium Chloride 0.9% 1, 240 260 20 000 ml @ 20 mls/hr IV . Q24H [facility]IDA Rx#:[id number] Intake, IV Titration 222.5 225 100 Amount Diltiazem 125 mg In 122.5 125 Sodium Chloride 0.9% 100 ml @ 10 MG/HR 10 mls/hr IV .[id number] NEIDA Rx#: [id number] Potassium Chloride 10 meq 100 In Water For Injection 1 100ml.bag @ 100 mls/hr IVPB Q1H NEIDA Rx#: [id number] Potassium Chloride 10 meq 100 In Water For Injection 1 100ml.bag @ 100 mls/hr IVPB Q1HR NEIDA Rx#: [id number] Potassium Chloride 10 meq 100 In Water For Injection 1 100ml.bag @ 100 mls/hr IVPB Q1HR NEIDA Rx#: [id number] Output: Urine 1620 1411 70 Other: Voiding Method Indwelling Catheter Indwelling Catheter - Exam Mild tachypnea/dyspnea. Currently on BiPAP. HEENT examination is grossly unremarkable. Mucous membranes are moist. Neck supple. Full range of motion. No adenopathy thyromegaly or neck vein distention. Cardiovascular examination reveals regular rhythm rate. S1-S2 normal. No S3 or S4. No discernible murmur noted. Heart rate 88 bpm. Lungs reveal coarse bilateral rhonchi. No wheezes. Scattered crackles. Saturations are 95 % on BiPAP. Abdomen soft without bowel sounds. No masses or tenderness. Extremities are intact. No cyanosis clubbing or edema. Skin is without rash or lesion. Neurologic examination reveals a right facial droop. - Labs CBC & Chem 7: 10/24/22 04:06 10/24/22 04:06 Labs: Abnormal Lab Results - Last 24 Hours (Table) 10/24/22 10/24/22 Range/Units 04:06 04:06 WBC 17.3 H (3.8-10.6) k/uL Plt Count 78 L (150-450) k/uL Neutrophils # 15.5 H (1.3-7.7) k/uL Lymphocytes # 0.8 L (1.0-4.8) k/uL Sodium 134 L (137-145) mmol/L Potassium 3.1 L (3.5-5.1) mmol/L Chloride 88 L (98-107) mmol/L Carbon Dioxide 39 H (22-30) mmol/L Glucose 70 L (74-99) mg/dL Calcium 8.1 L (8.4-10.2) mg/dL AST 40 H (14-36) U/L Alkaline Phosphatase 170 H (38-126) U/L Total Protein 5.2 L (6.3-8.2) g/dL Albumin 2.7 L (3.5-5.0) g/dL Assessment and Plan Assessment: Acute/subacute CVA, with aphasia, and right facial droop. Acute hypoxemic and hypercapnic respiratory failure. History of breast cancer, and chronic bilateral pleural effusions. History of non-small cell lung cancer. Expressive aphasia. Possible aspiration pneumonia. History of hypertension. History of CAD, with previous stent placement, right coronary artery. History of myocardial infarction. History of DVT. History of atrial fibrillation. History of osteoarthritis. Lifelong nontobacco user. Plan: Plan dated 10/02/2022. The patient was admitted for neurologic complaints, including right facial droop, and aphasia. The patient will be seen by neurology. She does have a chronic left-sided effusion, and has undergone thoracentesis in the past. I believe the last time we saw her, she had thoracentesis performed that [facility]. I believe I saw her about one year ago in October 2021 recently my consultation from that evaluation. We will continue to follow make recommendations. Plan dated 10/03/2022. The patient is stable from the pulmonary standpoint. She's on room air. She is a chronic left-sided pleural effusion, which had been previously drained at [facility]. Patient is currently being evaluated by neurology for her stroke symptoms. Prognosis is guarded. The patient has a right facial droop, and is unable to speak. Labs, x-rays, and medications are all reviewed. Plan dated 10/23/2022. The patient's overall condition has significantly deteriorated. She remains on BiPAP, with settings of 10/5 and 70%. The patient's very lethargic. She is on a Cardizem drip at 10 mg an hour for her atrial fibrillation. We will DC the Zyvox. She remains on Zosyn. We will continue to follow make recommendations along the way. Labs, x-rays, medications are reviewed. The patient is now a DO NOT RESUSCITATE patient. It would not be inappropriate talk to the family about a palliative care consult, or hospice consult. Plan dated 10/24/2022. The patient remains on BiPAP, his been on BiPAP throughout the night. The chest x-ray from yesterday shows significant consolidation bilaterally. The patient currently is on Cardizem drip at 10 mg an hour, and an IV, at KVO. The patient is a DO NOT RESUSCITATE patient. Apparently the family did have a conversation with hospice yesterday. No further decisions have been made as yet. Labs, x- rays, and medications are reviewed. Prognosis is certainly thought to be very poor. Time with Patient: Less than 30
--- NOTE | 2022-10-24 12:10 | P.PN ---
Subjective Progress Note Date: 10/24/22 Kat Kim, is a 72-year-old female who presented to [facility] emergency room with a chief complaint difficulty with her speech, and right facial drooping, patient presented to emergency room with similar complaints yesterday, at that time she was offered MRI and admission by [facility] however she felt that she was improving and she opted to go home. However over the next several hours patient developed complete aphasia, she was brought back to the emergency room by her family. She was evaluated in the emergency room vital examination on presentation revealed a temperature of 99 pulse 84 respiration 18 blood pressure 160/87 pulse ox 94% on room air Laboratory data revealed a white blood count of 7.1 hemoglobin 14.6 platelet count 167 sodium 137 potassium 4.3 chloride 102 CO2 29 BUN 9 creatinine 0.56 urine analysis revealed no evidence of infection and urine toxicology screen was negative Testing in the emergency room revealed, computed tomography scan of the brain without contrast was done in the emergency room and revealed no acute intracranial process, CT angiogram of the brain done in the emergency room revealed no evidence of dissection of the cervical internal carotid arteries or vertebral arteries or any evidence of significant stenosis at the carotid bifurcation there was no evidence of intracranial high-grade stenosis or intracranial aneurysm Patient was admitted to medical floor for further evaluation and treatment, neurology consultation was requested Past medical history is significant for history of breast cancer, history of stacey ng cancer, history of atrial fibrillation, history of lower extremity DVT, patient was maintained on Xarelto At home On 10/02/2022. Patient is currently resting in room remains with difficulty in speech and right facial drooping. MRI of the brain was completed showing scattered foci of restricted diffusion compatible with acute or subacute CVA given multiple vascular distributions correlate for emboli phenomenon. Neurology services are following. Cardiology services also consulted. Current vital signs temp 98.1, heart rate 74, blood pressure 129/67 pulse ox of 94% on room air On 10/03/2022, patient was seen and examined on telemetry, case was discussed in details with Dr. Amadou López neurologist, patient is developing more difficulty with swallowing, recommendation from neurology is to proceed with JESUS, to rule out cardiac thrombus or PFO. However due to significant difficulty with swallowing, cardiology wanted to wait at this time on JESUS. Recommendation from neurology at this time is to proceed with upper and lower bilateral lower extremity Doppler to rule out acute DVT, and to start anticoagulation starting tomorrow. On 10/04/2022 patient is sitting comfortably in chair. Patient remains nonverbal. Pradaxa has been started per cardiology and neurology recommendations. Current vital signs temp 97.5, heart rate 77, respiratory rate 16, blood pressure 1 5476 with pulse ox 93% on room air. Per cardiology at this time JESUS remains on hold due to difficulty in swallowing. On 10/05/2022 patient was seen and examined on the medical she is alert and oriented 3 in no apparent distress, she is sitting up in a chair, she still has significant facial drooping, she has complete aphasia, she tries to answer questions by nodding her head, she is still having significant difficulty with swallowing, cardiology note reviewed, no plans for JESUS at this time due to difficulty swallowing and the risk of aspiration, she was started on Pradaxa for anticoagulation, she is having difficulty swallowing the pill as it cannot be crushed. At this time will continue with physical therapy, occupational therapy, and speech therapy, will reassess in a.m. On 10/06/2022 patient was seen and examined the medical floor she is alert and oriented in no apparent distress, she is sitting up in a chair she still has complete aphasia, she is having difficulty swallowing, she is complaining of constipation, otherwise she denies any complaints there is no fever or chills no headache or dizziness no chest pain no shortness of breath no cough no nausea or vomiting no abdominal pain no diarrhea and no urinary symptoms. At this time, JESUS will be delayed until patient has better swallowing per cardiology, possibility of rehab admission discussed with patient however she is indicating that she wants to go home, possible discharge to home tomorrow if stable and no further recommendation from cardiology or neurology On 10/07/2022 patient is currently sitting in chair. Patient's son at bedside. Per patient's son patient had a fall this a.m. due to new onset of weakness to her right arm. Patient denies any injuries from fall but does report that the right arm weakness started last night. This is new per son. At this time will do a head CT and discussed with nursing staff to notify neurology services. patient denies chest pain or shortness of breath. Patient denies nausea vomiting or diarrhea. Patient denies any urinary burning or frequency. On 10/08/2022 patient was seen and examined on the telemetry floor she is alert responsive in no apparent distress she is still completely aphasic, she is answering questions by nodding her head, she is still having right sided facial drooping and difficulty swallowing, she also now has complete paralysis of the right upper extremity, neurology are following closely, they recommended JESUS however per their notes patient has refused to complete test. Medication were reviewed will continue with current management will discuss with neurology further treatment steps. On 10/09/2022 patient is currently resting comfortably in bed. Patient have some movement to right extremity no further new neurological symptoms. Patient still having right-sided facial drooping and difficulty swallowing. Patient's son is at bedside per family trying to convince patient to move forward with JESUS. Neurology services are following this time patient denies chest pain or shortness of breath. Patient denies nausea vomiting or diarrhea. Patient denies any urinary burning or frequency On 10/10/2022 patient was seen and examined on the telemetry floor she is alert and oriented 3 in no apparent distress she is still having right facial drooping, complete expressive aphasia, difficulty swallowing, and right upper extremity paralysis, she is scheduled for JESUS today, awaiting further input from neurology and cardiology, possible transfer to rehab on Wednesday if stable and no further recommendation for any testing and intervention. On 10/11/2022 patient is alert and oriented 3 currently sitting up in chair. Patient continues to have right facial drooping complete expressive aphasia, difficulty swallowing and right upper extremity paralysis. No new neurological symptoms noted. Patient did have JESUS completed. White blood cell trending up 15.6 will order chest x-ray urinalysis blood culture and consult infectious dis ease. On 10/12/2022 patient was seen and examined on the telemetry floor she is alert and oriented in no apparent distress, she is still having right sided facial drooping, complete expressive aphasia, and difficulty swallowing, she is also having severe paralysis of the right upper extremity. I have discussed her case in details with Dr. Rondon and with Dr. Dye on neurology, patient failed on Xarelto and had a stroke while she was taking Xarelto, recommendation by cardiology was to switch to Pradaxa, which was done a few days ago, however patient was not able to swallow Pradaxa pills, and it's not recommended that those pills are crushed, so cardiology switched her back to Xarelto, however upon discussion today with neurology Dr. Amadou Dye, he recommended to switch to Eliquis. At this time will discontinue Xarelto today and start with Eliquis in a.m. tomorrow. Patient also has elevated white blood count possibly related to aspiration even though chest x-ray is not revealing evidence of pneumonia, patient is followed by infectious disease she is maintained on IV antibiotic, wi ll continue to follow closely. There is a bed available for patient in [facility] rehab unit, however due to elevated white blood count and use of IV antibiotics, she is not stable enough yet for transfer. Will follow in a.m.. Prognosis is guarded. On 10/13/2022 patient was seen and examined on the telemetry floor she is alert responsive in no apparent distress, clinically there is no significant change in her condition since yesterday, her white blood count is increasing up to 24.2 from 16.[address] Berg is following antibiotic were changed today to Zosyn, vital exam reveals a temperature of 97.8 pulse 56 respiration 18 blood pressure 140/73 pulse ox 91% on room air. No new recommendation from neurology or cardiology, will continue to follow closely, prognosis is guarded On 10/14/2022 patient is alert responsive sitting in bed patient does appear to have increased shortness of breath requiring increased oxygen at 5 L. This time a ordered stat chest x-ray and consult pulmonary services. Patient is on antibiotics of IV Zosyn. Infectious disease services are following. Patient denies chest pain. Patient denies nausea vomiting or diarrhea. 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 Patient is not appropriate to discharge to rehab at this point will continue to follow closely. On 10/16/2022 patient was seen and examined in the ICU, over night patient developed worsening shortness of breath, she was transferred from the telemetry floor to the ICU and was started on BiPAP, pulmonary is following, and are planning for thoracentesis this morning, otherwise no change in condition since yesterday, prognosis remains guarded, pulmonary cardiology infectious disease and neurology are following. On 10/17/2022 patient was seen and examined in the ICU, she is alert responsive in no apparent distress, she is still nonverbal, she has right sided facial drooping, aphasia, and the right upper extremity paralysis, her shortness of breath has improved significantly, patient had thoracentesis yesterday, she is still maintained on IV antibiotics and her white blood count came down from 28,000-20,000 over the last 2 days, at this time will continue with current management patient can be transferred out of ICU today, hopefully she will be transferred to rehab over the next few days. On 10/18/2022 patient was seen and examined on the telemetry floor she is alert responsive in no apparent distress, she still has complete aphasia, right sided facial drooping, and right upper extremity paralysis, she is able to communicate by answering questions yes and no, she denies any pain or discomfort at this time, there is no evidence of shortness of breath at rest, chest x-ray reviewed and reveals worsening airspace disease throughout the right lung and similar airspace disease and pleural effusion on the left, no plans for repeat thoracentesis at this time per pulmonary. Labs today are still pending, white blood count was down to 20,000 yesterday patient is maintained on IV Zosyn and IV linezolid, infectious disease following, clinically patient is improving gradually, prognosis remains guarded, plan is to transfer to [facility] rehab when stable. On 10/19/2022 patient is sitting in chair alert and responsive remains with complete aphasia. Vital signs temp 97, heart rate 96, respiratory rate 20, blood pressure 166/79 potassium low at 3.1 replacement protocol. Patient remains on high flow nasal cannula 5 L. On 10/20/2022 patient was seen and examined on the telemetry floor she is alert responsive in no apparent distress, she still has complete aphasia, right sided facial drooping, and right upper extremity paralysis, patient is sitting up in a chair comfortably she denies any complaints. White blood count today 23.7 On 10/21/2022 patient currently sitting up in bed remains aphasic. Increased oxygen demand concerns for possible aspiration. chest x-ray ordered. Recommendations for possible PEG tube placement due to reoccurring aspiration. Unable to assess patient mentation due to aphasia family concerned over patient competence in regards to decision about PEG tube placement will consult psychiatry services to assess patient's competency and decision-making ability. We'll also reconsult pulmonary services due to increased oxygen demands. Patient does have elevated heart rate Cardizem ordered per cardiology services. On 10/22/2022 patient was seen and examined in the ICU, during the last night patient had worsening breathing difficulty, she was transferred to ICU and started on BiPAP, patient is alert responsive in mild respiratory distress. Vital exam today reveals a temperature of 98 pulse 72 respiration 28 blood pressure 145/75 pulse ox 91% on BiPAP, white blood count 19.7 hemoglobin 11.8 platelet count 75, pulmonary critical care are following, prognosis guarded. On 10/23/2022 patient remains in the intensive care unit. Patient remains on BiPAP repeat chest x-ray this a.m. Family has made patient DO NOT RESUSCITATE. Critical care services are following. Current vital signs temp 97.5, heart rate 92, respiratory rate 29, blood pressure 151/78 with an oxygen delivery of BiPAP 70% area On 10/24/2022 patient was seen and examined in the ICU she is alert responsive in no apparent distress she was maintained on BiPAP earlier currently, she is maintained on oxygen 6 L via nasal cannula, vital exam reveals a temperature of 97.9 pulse 88 respiration 24 blood pressure 126/63 pulse ox 94% on 6 L nasal cannula. Patient family had a meeting with hospice yesterday, family is not kath und today and no decision has been made yet. Objective - Vital Signs Vital signs: Vital Signs Temp 97.9 F 10/24/22 08:00 Pulse 88 10/24/22 09:00 Resp 24 10/24/22 09:00 BP 126/63 10/24/22 09:00 Pulse Ox 98 10/24/22 11:34 FiO2 70 10/24/22 08:00 Intake & Output 10/23/22 10/24/22 10/24/22 18:59 06:59 18:59 Intake Total 562.5 585 220 Output Total 1620 1411 70 Balance -1057.5 -826 150 Weight 67.4 kg 66.7 kg Intake: IV 340 360 120 Piperacillin-Tazobactam 3 100 100 100 .375 gm In Sodium Chloride 0.9% 100 ml @ 25 mls/hr IVPB Q8HR [facility] Rx# :[id number] Sodium Chloride 0.9% 1, 240 260 20 000 ml @ 20 mls/hr IV . Q24H [facility] Rx#:[id number] Intake, IV Titration 222.5 225 100 Amount Diltiazem 125 mg In 122.5 125 Sodium Chloride 0.9% 100 ml @ 10 MG/HR 10 mls/hr IV .[id number] [facility] Rx#: [id number] Potassium Chloride 10 meq 100 In Water For Injection 1 100ml.bag @ 100 mls/hr IVPB Q1H [facility] Rx#: [id number] Potassium Chloride 10 meq 100 In Water For Injection 1 100ml.bag @ 100 mls/hr IVPB Q1HR [facility] Rx#: [id number] Potassium Chloride 10 meq 100 In Water For Injection 1 100ml.bag @ 100 mls/hr IVPB Q1HR [facility] Rx#: [id number] Output: Urine 1620 1411 70 Other: Voiding Method Indwelling Catheter Indwelling Catheter - Exam In general patient is alert and oriented, able to communicate by writing on board in no apparent distress HEENT head normocephalic and atraumatic Neck is supple no JVD no goiter no lymphadenopathy no carotid bruit Chest examination is clear to auscultation no crackles no wheezing Cardiac exam reveals regular heart sounds S1 and S2 no gallops no murmurs Abdomen is soft nontender no organomegaly with normal bowel sounds Extremity exam reveals no edema no cyanosis or clubbing Neurological examination reveals complete expressive aphasia, and right facial drooping otherwise no focal deficit - Labs CBC & Chem 7: 10/24/22 04:06 10/24/22 04:06 Labs: Abnormal Lab Results - Last 24 Hours (Table) 10/24/22 10/24/22 Range/Units 04:06 04:06 WBC 17.3 H (3.8-10.6) k/uL Plt Count 78 L (150-450) k/uL Neutrophils # 15.5 H (1.3-7.7) k/uL Lymphocytes # 0.8 L (1.0-4.8) k/uL Sodium 134 L (137-145) mmol/L Potassium 3.1 L (3.5-5.1) mmol/L Chloride 88 L (98-107) mmol/L Carbon Dioxide 39 H (22-30) mmol/L Glucose 70 L (74-99) mg/dL Calcium 8.1 L (8.4-10.2) mg/dL AST 40 H (14-36) U/L Alkaline Phosphatase 170 H (38-126) U/L Total Protein 5.2 L (6.3-8.2) g/dL Albumin 2.7 L (3.5-5.0) g/dL Assessment and Plan Plan: Expressive aphasia and right facial droop secondary to ischemic stroke Reoccurring ischemic stroke with right arm paralysis Bilateral pleural effusions status post thoracentesis on 10/16/2022 cytology pending Leukocytosis secondary to possible aspiration pneumonia. Patient remains on IV antibiotics infectious disease service is consulted Recurring aspiration pneumonia. Dr. alonso consulted for possible PEG tube placement Underlying history of lung cancer Underlying history of breast cancer Previous history of DVT 3 weeks ago, maintained on Xarelto Underlying history of left pleural effusion History of atrial fibrillation At this time patient was seen and examined in the emergency room Home medications reviewed and reordered Cardiology, pulmonary, infectious disease and neurology service is following Psychiatry service is consulted to assess competency and decision-making ability Surgical service is consulted for possible PEG tube placement JESUS completed on 10/10/2022 Will follow closely
[2022-10-24] MEDS ORDERED: ACETAMINOPHEN IV (For NPO) 1,000 MG in EMPTY BAG 1 BAG IVPB PRN (12:15)
[2022-10-24] MEDS: SODIUM CHLORIDE 0.9% 1,000 ML IV SCH (13:23)
[2022-10-24] MEDS ORDERED: MIRTAZAPINE 15 MG TAB PO SCH (21:00)
[2022-10-24] MEDS: DILTIAZEM 125 MG in SODIUM CHLORIDE 0.9% 100 ML IV SCH (23:46)
[2022-10-24] MEDS: ATORVASTATIN 40 MG TAB PO SCH (23:47)
[2022-10-25] MEDS: POTASSIUM CHLORIDE 10 MEQ in WATER FOR INJECTION 1 100ML.BAG IVPB SCH ×3 (01:48→10:10)
[2022-10-25 04:39] LABS: Basophils % (A) 0 %; Eosinophils # (A) 0.1 k/uL (0-0.7); Eosinophils % (A) 0 %; HCT 37.7 % (34.0-46.0); HGB 12.5 gm/dL (11.4-16.0); Lymphocytes # (A) 0.9 k/uL (1.0-4.8); Lymphocytes % (A) 5 %; MCH 29.8 pg (25.0-35.0); MCV 90.2 fL (80.0-100.0); Mean Platelet Volume 9.6; Monocytes # (A) 1.1 k/uL (0-1.0); Monocytes % (A) 6 %; Neutrophils # (A) 16.9 k/uL (1.3-7.7); Neutrophils % (A) 89 %; Platelet Count 104 k/uL (150-450); RBC 4.18 m/uL (3.80-5.40); RDW 13.8 % (11.5-15.5); WBC 19.1 k/uL (3.8-10.6)
[2022-10-25 04:51] LABS: ALT 27 U/L (4-34); AST 42 U/L (14-36); African American GFR (CKD) >90 (>60 ml/min/1.73 sqM); Albumin 2.9 g/dL (3.5-5.0); Alkaline Phosphatase 195 U/L (38-126); Blood Urea Nitrogen 16 mg/dL (7-17); Calcium 8.3 mg/dL (8.4-10.2); Chloride 88 mmol/L (98-107); Glucose 76 mg/dL (74-99); Non-African American GFR(CKD) 90 (>60 ml/min/1.73 sqM); Potassium 3.7 mmol/L (3.5-5.1); Sodium 136 mmol/L (137-145); Total Bilirubin 0.8 mg/dL (0.2-1.3); Total Protein 5.4 g/dL (6.3-8.2)
[2022-10-25 04:57] LABS: Anion Gap 11 mmol/L; Carbon Dioxide 37 mmol/L (22-30)
[2022-10-25] MEDS: ANASTROZOLE 1 MG TAB PO SCH (08:32)
[2022-10-25] MEDS: carvediloL 3.125 MG TAB PO SCH (08:32)
[2022-10-25] MEDS: lisinopriL 5 MG TAB PO SCH (08:33)
[2022-10-25] MEDS: DOCUSATE 100 MG CAP PO SCH (08:33)
[2022-10-25] MEDS: LACTULOSE 20 GM/30 ML CUP PO SCH (08:33)
--- NOTE | 2022-10-25 09:08 | P.PN ---
Subjective Progress Note Date: 10/25/22 Principal diagnosis: Malnutrition Patient has had no significant improvement from a pulmonary standpoint. Family apparently has decided to likely go with hospice. Objective - Vital Signs Vital signs: Vital Signs Temp 99.3 F 10/25/22 03:00 Pulse 98 10/25/22 06:00 Resp 25 H 10/25/22 06:00 BP 139/71 10/25/22 06:00 Pulse Ox 91 L 10/25/22 06:00 FiO2 100 10/25/22 08:21 Intake & Output 10/24/22 10/25/22 10/25/22 18:59 06:59 18:59 Intake Total 635 530 Output Total 1220 1095 Balance -585 -565 Weight 65.3 kg Intake: IV 210 230 Piperacillin-Tazobactam 3 100 100 .375 gm In Sodium Chloride 0.9% 100 ml @ 25 mls/hr IVPB Q8HR [facility] Rx# :[id number] Sodium Chloride 0.9% 1, 110 130 000 ml @ 20 mls/hr IV . Q24H [facility] Rx#:[id number] Intake, IV Titration 425 300 Amount Diltiazem 125 mg In 125 Sodium Chloride 0.9% 100 ml @ 10 MG/HR 10 mls/hr IV .[id number] [facility] Rx#: [id number] Piperacillin-Tazobactam 3 200 .375 gm In Sodium Chloride 0.9% 100 ml @ 25 mls/hr IVPB Q8HR [facility] Rx# :[id number] Potassium Chloride 10 meq 100 In Water For Injection 1 100ml.bag @ 100 mls/hr IVPB Q1H [facility] Rx#: [id number] Potassium Chloride 10 meq 100 In Water For Injection 1 100ml.bag @ 100 mls/hr IVPB Q1H [facility] Rx#: [id number] Potassium Chloride 10 meq 200 In Water For Injection 1 100ml.bag @ 100 mls/hr IVPB Q1HR [facility] Rx#: [id number] Output: Urine 1220 1095 Other: Voiding Method Indwelling Catheter Indwelling Catheter # Bowel Movements 1 - Exam Abdomen: Soft, nontender, nondistended - Labs CBC & Chem 7: 10/25/22 03:31 10/25/22 03:31 Labs: Abnormal Lab Results - Last 24 Hours (Table) 06/18/23 06/18/23 Range/Units 03:31 03:31 WBC 19.1 H (3.8-10.6) k/uL Plt Count 104 L (150-450) k/uL Neutrophils # 16.9 H (1.3-7.7) k/uL Lymphocytes # 0.9 L (1.0-4.8) k/uL Monocytes # 1.1 H (0-1.0) k/uL Sodium 136 L (137-145) mmol/L Chloride 88 L (98-107) mmol/L Carbon Dioxide 37 H (22-30) mmol/L Calcium 8.3 L (8.4-10.2) mg/dL AST 42 H (14-36) U/L Alkaline Phosphatase 195 H (38-126) U/L Total Protein 5.4 L (6.3-8.2) g/dL Albumin 2.9 L (3.5-5.0) g/dL Assessment and Plan (1) Malnutrition Narrative/Plan: Continue supportive care. Possible transfer to hospice house today. We'll sign off. Please reconsult if needed Current Visit: Yes Status: Acute Code(s): E46 - UNSPECIFIED PROTEIN-CALORIE MALNUTRITION SNOMED Code(s): 22653423
--- NOTE | 2022-10-25 10:06 | P.PN ---
Subjective Progress Note Date: 10/24/22 10/24/2022: Patient was seen for follow-up. Patient's daughter and son both were present today. Patient's conditions essentially unchanged. Patient is on BiPAP. Patient is fully alert and awake. 10/23/2022: Patient was seen for follow-up. Patient's son was also present today and I had a prolonged discussion with patient's son. They're considering hospice care, but not able to make full decision. Patient's daughter is also coming today, and both of these children will discuss today. Patient is otherwise alert, sleeps well, responds well, but not able to undergo PEG p lacement because of breathing issues. 10/22/2022: Patient was seen for a follow-up. Patient is laying comfortably in the bed, has BiPAP on. Patient was transferred to ICU because of respiratory distress. Patient could not undergo PEG tube placement today. 10/21/2022: Patient was seen for a follow-up. Patient is laying comfortably in the bed. Patient clinically unchanged. Still with significant aphasia, right hemiparesis. Patient apparently has admitted for PEG tube placement, which will be done tomorrow. 10/20/2022: Patient was seen for a follow-up. Patient is sitting comfortably in the recliner. Patient continues to be significantly aphasic, right hemiparetic. Patient is declining NG tube or PEG tube placement. She is now on regular floor 357. 10/15/2022: Patient was seen for follow-up. Patient since last seen, was followed up by Dr. Amadou Dye. Please refer to his note for details. Patient at present is in ICU in bed #264. She was transferred to the ICU because of large left pleural effusion. Patient also had runs of SVT last night for which an A-team was activated. 10/07/2022: Patient has developed new focal symptoms as of this morning. Patient has developed right arm weakness, which is very noticeable. This is an acute change. Patient continues to be severely expressively aphasic. Her comprehension appears to be slightly worse today. Patient admits to having headache. 10/06/2022: Patient was seen for a follow-up. Patient is sitting comfortably in the recliner. Denies any headache. Family members were not present today. Patient continues to be severely aphasic with anarthria. Telemetry monitoring showing sinus rhythm. 10/05/2022: Patient initially seen by Dr. Amadou Dye. Please refer to his note for details. Patient is a 72-year-old right-handed female with history of stage IV lung cancer, came with global aphasia and muteness. Patient's daughter was present, who provided with history. On Wednesday evening 09/30/2022 at 7 PM, while cutting vegetables, she stopped getting the jaycob and started drooling for 15 minutes. She was brought to the hospital and her speech returned back to baseline. She was sent home, and next day on at 9:30 AM, she stopped talking and has never regained speech yet. MRI of the brain revealed multiple bilateral hemispheric stroke, left slightly more than right. Patient has history of DVT 3 weeks ago and atrial fibrillation and was on Xarelto but appears failed. Patient was started on broad neck side yesterday. JESUS is pending. Patient's daughter was also present, who states that patient is cognitively intact. She understands everything, but cannot express herself which makes her very frustrated. Some of the workup during his hospital visit consisted of: Lipid panel triglycerides 79, cholesterol is 204, LDLs 128, HDL 59. CT head is reported as no acute intracranial process. I personally reviewed that a CT and there is no acute or subacute ischemia seen. There is no mass affect. CT angiography of the head and neck was reported as no evidence of dissection of the cervical internal carotid arteries or vertebral artery or any evidence of significant stenosis at the carotid bifurcation. No evidence of intracranial high-grade stenosis or intracranial aneurysm. Intracranial atherosclerosis of the internal carotid artery without hemodynamic stenosis. Right and increased size of left pleural effusion. There is a pleural sign in the left which could represent empyema. Persistent that scattered nodular opacity likely representing metastatic disease from the patient known malignancy. EKG is reported as sinus rhythm. Low QRS voltage [facility] Drug screen is negative. MRI brain is reported as scattered foci of restricted diffusion compatible with acute/subacute CVA. Given multiple vascular distribution correlate for embolic phenomena. No abnormal postcontrast enhancement the, no evidence for mass. Nonspecific white matter changes likely secondary to chronic small vessel ischem ic disease. I personally reviewed the MRI and I agree with the report. Patient has restriction diffusion over bilateral frontal left more than the right with right parietal occipital region The echo was reported as suboptimal acoustic windows. Contrast echo study performed. Borderline normal left ventricle systolic function septal bulge. There is septal and inferior basal hypokinesis. Routine EEG is normal. There is no focal slowing, epileptiform discharges or seizure on the EEG. Venous duplex of the upper and lower extremities negative Objective - Vital Signs Vital signs: Vital Signs Temp 98.4 F 10/24/22 12:00 Pulse 96 10/24/22 13:00 Resp 25 H 10/24/22 13:00 BP 131/67 10/24/22 13:00 Pulse Ox 92 L 10/24/22 13:00 FiO2 70 10/24/22 08:00 Intake & Output 10/23/22 10/24/22 10/24/22 18:59 06:59 18:59 Intake Total 562.5 585 360 Output Total 1620 1411 70 Balance -1057.5 -826 290 Weight 67.4 kg 66.7 kg Intake: IV 340 360 160 Piperacillin-Tazobactam 3 100 100 100 .375 gm In Sodium Chloride 0.9% 100 ml @ 25 mls/hr IVPB Q8HR [facility] Rx# :[id number] Sodium Chloride 0.9% 1, 240 260 60 000 ml @ 20 mls/hr IV . Q24H [facility] Rx#:[id number] Intake, IV Titration 222.5 225 200 Amount Diltiazem 125 mg In 122.5 125 Sodium Chloride 0.9% 100 ml @ 10 MG/HR 10 mls/hr IV .[id number] [facility] Rx#: [id number] Piperacillin-Tazobactam 3 100 .375 gm In Sodium Chloride 0.9% 100 ml @ 25 mls/hr IVPB Q8HR [facility] Rx# :[id number] Potassium Chloride 10 meq 100 In Water For Injection 1 100ml.bag @ 100 mls/hr IVPB Q1H [facility] Rx#: [id number] Potassium Chloride 10 meq 100 In Water For Injection 1 100ml.bag @ 100 mls/hr IVPB Q1HR [facility] Rx#: [id number] Potassium Chloride 10 meq 100 In Water For Injection 1 100ml.bag @ 100 mls/hr IVPB Q1HR [facility] Rx#: [id number] Output: Urine 1620 1411 70 Other: Voiding Method Indwelling Catheter Indwelling Catheter Indwelling Catheter - Exam Patient is alert and awake, laying comfortably in the bed. Patient is using BiPAP at this time. Patient's children are by the bedside. Patient is severely aphasic. Mute, not able to speak any words. Patient not able to point to the window, to the ceiling or the door. She has partial comprehension. Cranial nerves significant for pupils equal, round and reacting. No words comes out of her mouth otherwise. Patient has right facial asymmetry. Patient is flaccid in the right upper limb with no movement. The strength is normal in the left upper limb. Her strength is normal in the lower limbs - Labs CBC & Chem 7: 10/25/22 03:31 10/25/22 03:31 Labs: Abnormal Lab Results - Last 24 Hours (Table) 10/24/22 10/24/22 Range/Units 04:06 04:06 WBC 17.3 H (3.8-10.6) k/uL Plt Count 78 L (150-450) k/uL Neutrophils # 15.5 H (1.3-7.7) k/uL Lymphocytes # 0.8 L (1.0-4.8) k/uL Sodium 134 L (137-145) mmol/L Potassium 3.1 L (3.5-5.1) mmol/L Chloride 88 L (98-107) mmol/L Carbon Dioxide 39 H (22-30) mmol/L Glucose 70 L (74-99) mg/dL Calcium 8.1 L (8.4-10.2) mg/dL AST 40 H (14-36) U/L Alkaline Phosphatase 170 H (38-126) U/L Total Protein 5.2 L (6.3-8.2) g/dL Albumin 2.7 L (3.5-5.0) g/dL Assessment and Plan Assessment: Recurrent ischemic strokes. Patient has failed Pradaxa, Xarelto in the recent past with breakthrough strokes. Patient at present is severely aphasic, right hemiplegic, mainly involving the facial brachial region. Dysphagia, due to above. Acute ischemic stroke (over bilateral hemisphere: bilateral frontal L>R, right parietal and occipital region). Stroke appears embolic in nature: Probable cardioembolic. Patient currently on Eliquis. Leukocytosis and possible pneumonia. Patient on Zosyn and Linezolid, ID on board. Metastatic non-small cell lung cancer History of right breast cancer, on Arimidex History of recent DVT about 3 weeks ago and was on Xarelto History of pleural effusion, status post thoracentesis 1300 serosanguineous fluid removed, positive for malignancy History of atrial fibrillation and in past was on anticoagulation then stopped then after DVT 3 weeks ago restarted it Plan: Patient is neurologically stable. She continues to be aphasic, and plegic in the right upper extremity. Patient not able to take Eliquis due to dysphagia, and PEG tube could not be placed due to pulmonary issues. Patient started on full dose Lovenox anticoagulation. Patient had recurrent ischemic strokes. CTA of head and neck showed no significant change from recent CTA study. No LVO. Patient has failed Xarelto and Pradaxa. Patient is now on Eliquis and also on Plavix. Psychiatry has seen the patient, and patient is not competent to make decision. JESUS performed 10/10/2022 revealed normal appearance left atrial appendage. Normal left ventricular size and systolic function. No shunting across the intra-atrial septum. Mild mitral and tricuspid regurgitation. Aortic valve sclerosis without stenosis. Continue Lipitor 40 mg daily at bedtime second stroke prophylaxis Routine EEG normal. Cardiac monitoring PT OT and SYSTEM TECHNOLOGIST are consulted. Patient is declining feeding tube. She is at risk for aspiration. Cardiology is on board. Pulmonary team is consulted for pleural effusion and history of lung cancer We'll defer the rest of the medical management to primary team For DVT prophylaxis: Vianney. I had a prolonged discussion with patient's daughter today. They are considering hospice care because of presence of terminal disease (metastatic lung cancer), and her poor quality of life with multiple strokes. Overall long-term prognosis is poor based upon multiple medical conditions including terminal disease(metastatic cancer).
[2022-10-25] MEDS: FUROSEMIDE 10 MG/ML 4 ML VIAL IV SCH (10:11)
[2022-10-25] MEDS: PIPERACILLIN-TAZOBACTAM 3.375 GM in SODIUM CHLORIDE 0.9% 100 ML IVPB SCH (10:11)
[2022-10-25] MEDS: ENOXAPARIN 60 MG/0.6 ML SYRINGE SQ SCH (10:12)
[2022-10-25] MEDS: PANTOPRAZOLE 40 MG/10 ML VIAL IVP SCH (10:12)
--- NOTE | 2022-10-25 10:47 | P.DS ---
Providers Date of admission: 10/01/22 13:09 Expected date of discharge: 10/25/22 Attending physician: Tejinder Taylor Consults: 10/01/22 13:02 Consult Physician Urgent Consulting Provider: Amadou Dye Consult Reason/Comments: cva, ams Do you want consulting provider notified?: Already Contacted 10/01/22 13:07 Consult Physician Routine Consulting Provider: Wicho Dye Consult Reason/Comments: pleural effusion, cancer Do you want consulting provider notified?: Yes 10/09/22 10:18 Consult Physician Routine Consulting Provider: Ivan Perez Consult Reason/Comments: Eval for IPR Do you want consulting provider notified?: Yes 10/09/22 16:07 Consult Physician Routine Consulting Provider: Garett Morris Consult Reason/Comments: multiple recent recurrent stroke. ?hypercoagulable Do you want consulting provider notified?: Yes 10/11/22 10:03 Consult Physician Routine Consulting Provider: Anyi Berg Consult Reason/Comments: Leukocytosis Do you want consulting provider notified?: Yes 10/14/22 11:43 Consult Physician Urgent Consulting Provider: Wicho Dye Consult Reason/Comments: Increased shortness of breath Do you want consulting provider notified?: Yes 10/20/22 15:14 Consult Physician Routine Consulting Provider: Osman Bennett Consult Reason/Comments: PEG tube placement Do you want consulting provider notified?: Yes 10/21/22 10:28 Consult Physician Routine Consulting Provider: Xavi Shaw Consult Reason/Comments: competency Do you want consulting provider notified?: Yes 10/21/22 10:30 Consult Physician Routine Consulting Provider: Wicho Dye Consult Reason/Comments: increased oxygen demands. Do you want consulting provider notified?: Yes Primary care physician: Angela Dobson Hospital Course: Discharge diagnosis Patient is being discharged under hospice care to hospice house Expressive aphasia and right facial droop secondary to ischemic stroke Reoccurring ischemic stroke with right arm paralysis Bilateral pleural effusions status post thoracentesis on 10/16/2022 cytology pending Leukocytosis secondary to possible aspiration pneumonia. Patient remains on IV antibiotics infectious disease service is consulted Recurring aspiration pneumonia. Dr. alonso consulted for possible PEG tube placement Underlying history of lung cancer Underlying history of breast cancer Previous history of DVT 3 weeks ago, maintained on Xarelto Underlying history of left pleural effusion History of atrial fibrillation Hospital course Kat Kim, is a 72-year-old female who presented to [facility] emergency room with a chief complaint difficulty with her speech, and right facial drooping, patient presented to emergency room with similar comp laints yesterday, at that time she was offered MRI and admission by emergency room physician however she felt that she was improving and she opted to go home. However over the next several hours patient developed complete aphasia, she was brought back to the emergency room by her family. She was evaluated in the emergency room vital examination on presentation revealed a temperature of 99 pulse 84 respiration 18 blood pressure 160/87 pulse ox 94% on room air Laboratory data revealed a white blood count of 7.1 hemoglobin 14.6 platelet count 167 sodium 137 potassium 4.3 chloride 102 CO2 29 BUN 9 creatinine 0.56 urine analysis revealed no evidence of infection and urine toxicology screen was negative Testing in the emergency room revealed, computed tomography scan of the brain without contrast was done in the emergency room and revealed no acute intracranial process, CT angiogram of the brain done in the emergency room revealed no evidence of dissection of the cervical internal carotid arteries or vertebral arteries or any evidence of significant stenosis at the carotid bifurcation there was no evidence of intracranial high-grade stenosis or intracranial aneurysm Patient was admitted to medical floor for further evaluation and treatment, neurology consultation was requested Past medical history is significant for history of breast cancer, history of lung cancer, history of atrial fibrillation, history of lower extremity DVT, patient was maintained on Xarelto At home On 10/02/2022. Patient is currently resting in room remains with difficulty in speech and right facial drooping. MRI of the brain was completed showing scattered foci of restricted diffusion compatible with acute or subacute CVA given multiple vascular distributions correlate for emboli phenomenon. Neurol ogy services are following. Cardiology services also consulted. Current vital signs temp 98.1, heart rate 74, blood pressure 129/67 pulse ox of 94% on room air On 10/03/2022, patient was seen and examined on telemetry, case was discussed in details with Dr. Amadou López neurologist, patient is developing more difficulty with swallowing, recommendation from neurology is to proceed with JESUS, to rule out cardiac thrombus or PFO. However due to significant difficulty with swallowing, cardiology wanted to wait at this time on JESUS. Recommendation from neurology at this time is to proceed with upper and lower bilateral lower extremity Doppler to rule out acute DVT, and to start anticoagulation starting tomorrow. On 10/04/2022 patient is sitting comfortably in chair. Patient remains nonverbal . Pradaxa has been started per cardiology and neurology recommendations. Current vital signs temp 97.5, heart rate 77, respiratory rate 16, blood pressure 1 5476 with pulse ox 93% on room air. Per cardiology at this time JESUS remains on hold due to difficulty in swallowing. On 10/05/2022 patient was seen and examined on the medical she is alert and oriented 3 in no apparent distress, she is sitting up in a chair, she still has significant facial drooping, she has complete aphasia, she tries to answer questions by nodding her head, she is still having significant difficulty with swallowing, cardiology note reviewed, no plans for JESUS at this time due to difficulty swallowing and the risk of aspiration, she was started on Pradaxa for anticoagulation, she is having difficulty swallowing the pill as it cannot be crushed. At this time will continue with physical therapy, occupational therapy, and speech therapy, will reassess in a.m. On 10/06/2022 patient was seen and examined the medical floor she is alert and oriented in no apparent distress, she is sitting up in a chair she still has complete aphasia, she is having difficulty swallowing, she is complaining of constipation, otherwise she denies any complaints there is no fever or chills no headache or dizziness no chest pain no shortness of breath no cough no nausea or vomiting no abdominal pain no diarrhea and no urinary symptoms. At this time, JESUS will be delayed until patient has better swallowing per cardiology, possibility of rehab admission discussed with patient however she is indicating that she wants to go home, possible discharge to home tomorrow if stable and no further recommendation from cardiology or neurology On 10/07/2022 patient is currently sitting in chair. Patient's son at bedside. Per patient's son patient had a fall this a.m. due to new onset of weakness to her right arm. Patient denies any injuries from fall but does report that the right arm weakness started last night. This is new per son. At this time will do a head CT and discussed with nursing staff to notify neurology services. patient denies chest pain or shortness of breath. Patient denies nausea vomiting or diarrhea. Patient denies any urinary burning or frequency. On 10/08/2022 patient was seen and examined on the telemetry floor she is alert responsive in no apparent distress she is still completely aphasic, she is answering questions by nodding her head, she is still having right sided facial drooping and difficulty swallowing, she also now has complete paralysis of the right upper extremity, neurology are following closely, they recommended JESUS however per their notes patient has refused to complete test. Medication were reviewed will continue with current management will discuss with neurology furt her treatment steps. On 10/09/2022 patient is currently resting comfortably in bed. Patient have some movement to right extremity no further new neurological symptoms. Patient still having right-sided facial drooping and difficulty swallowing. Patient's son is at bedside per family trying to convince patient to move forward with JESUS. Neurology services are following this time patient denies chest pain or shortness of breath. Patient denies nausea vomiting or diarrhea. Patient denies any urinary burning or frequency On 10/10/2022 patient was seen and examined on the telemetry floor she is alert and oriented 3 in no apparent distress she is still having right facial drooping, complete expressive aphasia, difficulty swallowing, and right upper extremity paralysis, she is scheduled for JESUS today, awaiting further input from neurology and cardiology, possible transfer to rehab on Wednesday if stable and no further recommendation for any testing and intervention. On 10/11/2022 patient is alert and oriented 3 currently sitting up in chair. Patient continues to have right facial drooping complete expressive aphasia, difficulty swallowing and right upper extremity paralysis. No new neurological symptoms noted. Patient did have JESUS completed. White blood cell trending up 15.6 will order chest x-ray urinalysis blood culture and consult infectious disease. On 10/12/2022 patient was seen and examined on the telemetry floor she is alert and oriented in no apparent distress, she is still having right sided facial drooping, complete expressive aphasia, and difficulty swallowing, she is also having severe paralysis of the right upper extremity. I have discussed her case in details with Dr. Rondon and with Dr. Dye on neurology, patient failed on Xarelto and had a stroke while she was taking Xarelto, recommendation by cardiology was to switch to Pradaxa, which was done a few days ago, however patient was not able to swallow Pradaxa pills, and it's not recommended that those pills are crushed, so cardiology switched her back to Xarelto, however upon discussion today with neurology Dr. Amadou Dye, he recommended to switch to Eliquis. At this time will discontinue Xarelto today and start with Eliquis in a.m. tomorrow. Patient also has elevated white blood count possibly related to aspiration even though chest x-ray is not revealing evidence of pneumonia, patient is followed by infectious disease she is maintained on IV antibiotic, will continue to follow closely. There is a bed available for patient in [facility] rehab unit, however due to elevated white blood count and use of IV antibiotics, she is not stable enough yet for transfer. Will follow in a.m.. Prognosis is guarded. On 10/13/2022 patient was seen and examined on the telemetry floor she is alert responsive in no apparent distress, clinically there is no significant change in her condition since yesterday, her white blood count is increasing up to 24.2 from 16.[address] Berg is following antibiotic were changed today to Zosyn, vital exam reveals a temperature of 97.8 pulse 56 respiration 18 blood pressure 140/73 pulse ox 91% on room air. No new recommendation from neurology or cardiology, will continue to follow closely, prognosis is guarded On 10/14/2022 patient is alert responsive sitting in bed patient does appear to have increased shortness of breath requiring increased oxygen at 5 L. This time a ordered stat chest x-ray and consult pulmonary services. Patient is on antibiotics of IV Zosyn. Infectious disease services are following. Patient denies chest pain. Patient denies nausea vomiting or diarrhea. She remains on anticoagulation of eliquis and Plavix On 10/15/2022 patient was seen and examined on the medical floor she is alert an d responsive in no apparent distress she is still nonverbal she still has complete paralysis of the right upper extremity she still has facial drooping and difficulty swallowing, during freight flagman hours patient had episode of SVT with heart rate 120- 150 cardiology were contacted and she was started on IV Cardizem drip, white blood count continue to increase pulmonary and infectious disease are following currently patient is maintained on Zosyn and Zyvox possibility of thoracentesis is being discussed. Patient is not appropriate to discharge to rehab at this point will continue to follow closely. On 10/16/2022 patient was seen and examined in the ICU, over night patient developed worsening shortness of breath, she was transferred from the telemetry floor to the ICU and was started on BiPAP, pulmonary is following, and are planning for thoracentesis this morning, otherwise no change in condition since yesterday, prognosis remains guarded, pulmonary cardiology infectious disease and neurology are following. On 10/17/2022 patient was seen and examined in the ICU, she is alert responsive in no apparent distress, she is still nonverbal, she has right sided facial drooping, aphasia, and the right upper extremity paralysis, her shortness of breath has improved significantly, patient had thoracentesis yesterday, she is still maintained on IV antibiotics and her white blood count came down from 28,000-20,000 over the last 2 days, at this time will continue with current management patient can be transferred out of ICU today, hopefully she will be transferred to rehab over the next few days. On 10/18/2022 patient was seen and examined on the telemetry floor she is alert responsive in no apparent distress, she still has complete aphasia, right sided facial drooping, and right upper extremity paralysis, she is able to communicate by answering questions yes and no, she denies any pain or discomfort at this time, there is no evidence of shortness of breath at rest, chest x-ray reviewed and reveals worsening airspace disease throughout the right lung and similar airspace disease and pleural effusion on the left, no plans for repeat thoracentesis at this time per pulmonary. Labs today are still pending, white blood count was down to 20,000 yesterday patient is maintained on IV Zosyn and IV linezolid, infectious disease following, clinically patient is improving gradually, prognosis remains guarded, plan is to transfer to [facility] rehab when stable. On 10/19/2022 patient is sitting in chair alert and responsive remains with complete aphasia. Vital signs temp 97, heart rate 96, respiratory rate 20, blood pressure 166/79 potassium low at 3.1 replacement protocol. Patient remains on high flow nasal cannula 5 L. On 10/20/2022 patient was seen and examined on the telemetry floor she is alert responsive in no apparent distress, she still has complete aphasia, right sided facial drooping, and right upper extremity paralysis, patient is sitting up in a chair comfortably she denies any complaints. White blood count today 23.7 On 10/21/2022 patient currently sitting up in bed remains aphasic. Increased oxygen demand concerns for possible aspiration. chest x-ray ordered. Recommendations for possible PEG tube placement due to reoccurring aspiration. Unable to assess patient mentation due to aphasia family concerned over patient competence in regards to decision about PEG tube placement will consult psychiatry services to assess patient's competency and decision-making ability. We'll also reconsult pulmonary services due to increased oxygen demands. Patient does have elevated heart rate Cardizem ordered per cardiology services. On 10/22/2022 patient was seen and examined in the ICU, during the last night patient had worsening breathing difficulty, she was transferred to ICU and started on BiPAP, patient is alert responsive in mild respiratory distress. Vital exam today reveals a temperature of 98 pulse 72 respiration 28 blood pressure 145/75 pulse ox 91% on BiPAP, white blood count 19.7 hemoglobin 11.8 platelet count 75, pulmonary critical care are following, prognosis guarded. On 10/23/2022 patient remains in the intensive care unit. Patient remains on BiPAP repeat chest x-ray this a.m. Family has made patient DO NOT RESUSCITATE. Critical care services are following. Current vital signs temp 97.5, heart rate 92, respiratory rate 29, blood pressure 151/78 with an oxygen delivery of BiPAP 70% area On 10/24/2022 patient was seen and examined in the ICU she is alert responsive in no apparent distress she was maintained on BiPAP earlier currently, she is maintained on oxygen 6 L via nasal cannula, vital exam reveals a temperature of 97.9 pulse 88 respiration 24 blood pressure 126/63 pulse ox 94% on 6 L nasal cannula. Patient family had a meeting with hospice yesterday, family is not around today and no decision has been made yet. On 10/25/2022 patient being DC'd to hospice care. Patient is going to be DC'd t o hospice house per nursing staff. At this time patient is resting comfortably in bed. Patient denies any acute pain. Currently on 15 L high flow Plan - Discharge Summary Discharge Rx Participant: No New Discharge Prescriptions: Discontinued Rivaroxaban [Xarelto] 20 mg PO DAILY carvediloL [Coreg] 3.125 mg PO BID Anastrozole [Arimidex] 1 mg PO DAILY Osimertinib Mesylate [Tagrisso] 80 mg PO DAILY Follow up Appointment(s)/Referral(s): Home Health,[facility] [NON-STAFF] - 1-2 Days ([facility] will call you to schedule your in home nursing and speech therapy visits. ) Sita Montanez MD [STAFF PHYSICIAN] - 10/30/22 11:00 am Patient Instructions/Handouts: Ischemic Stroke (GEN) Discharge Disposition: HOME WITH HOSPICE
--- NOTE | 2022-10-25 10:57 | P.PN ---
Subjective Progress Note Date: 10/25/22 Principal diagnosis: Pleural effusion, chronic. Pulmonary/critical care consult dated 10/02/2022. 72-year-old female with a history of breast cancer, presents to the emergency de partment on October 01, complaining of strokelike symptoms. The patient apparently had a slight right-sided facial droop, and was unable to speak. The patient was admitted to the hospital, and we are asked to see her for her chronic left-sided effusion. The patient has had a thoracentesis in the past, which I believe was done at [facility]. Currently, the patient's on room air, and not rece iving any IV fluids. The speech pathologist was in room with her. We saw her in 378. Her medical history includes rest cancer, hypertension, myocardial infarction, osteoarthritis, and apparently the patient is a lifelong nonsmoker. She has had a catheterization with stent placement in her right coronary artery. She appears in no distress. CBC is completely normal. PT 12.3 with an INR 1.2. PTT is 31.6. Electrolytes are normal including sodium, potassium, chloride, carbon dioxide, anion gap, BUN, and creatinine. Glucose 104. The rest of the comprehensive metabolic profile is essentially normal. Urine is negative. Drug screen was negative. Chest x-ray shows a moderate left-sided e ffusion, and a small right-sided effusion. Brain CT was negative. Angiography, CT, showed no evidence of high-grade stenosis. Brain MRI showed scattered foci of restricted diffusion compatible with acute subacute LINDA. There were multiple vascular distributions. No evidence for mass. Progress note dated 10/03/2022. 72-year-old female with history of breast cancer, and chronic left-sided pleural effusion. The patient was admitted with a diagnosis of stroke. She is currently seeing neurology. She stable from the pulmonary standpoint. She's on room air. She's not receiving any IV fluids. The patient has a right facial droop, and is aphasic. CBC today is normal. Sodium 140, potassium 3.8, chlorides 105, CO2 27, anion gap 8, BUN 15, and creatinine 0.56. Progress note dated 10/23/2022. 73-year-old female with a history of breast cancer, as well as lung cancer. I last saw the patient on October 03. Please see the note above. Currently, the patient's resting comfortably in the intensive care unit. She is in room 259. She was to have a PEG tube placed, but I told the surgeon, that she was too unstable to have it done today. She's currently on BiPAP, with settings of 10/5 and 70%. She's getting Cardizem at 10 mg an hour, and saline at 10 mL an hour. The Zyvox is discontinued. She remains on Zosyn. The patient is now a DO NOT RESUSCITATE patient. I spoke to the nurses about the possibility of the patient having a hospice or palliative care consult. It will be discussed with her son. White count is 19, hemoglobin 12, hematocrit 36.1, and platelet count 65,000. Sodium 135, potassium 3.8, chlorides 92, CO2 41, with a normal BUN and creatinine. Chest x-ray shows worsening diffuse airspace disease, compared to prior x-rays. Progress note dated 10/24/2022. 73-year-old female seen today in room 259. She has a history of both lung cancer, and breast cancer. The patient is currently on BiPAP, with settings of 10/5 and 70%. She spent almost the entire night on BiPAP. She's also getting saline at KVO, and a Cardizem drip at 10 mg an hour. The patient is a DO NOT RESUSCITATE patient. Apparently, hospice did have a conversation with the family. White count 17.3, hemoglobin 12.2, hematocrit 37.1, and platelet count 78,000. Sodium 134, potassium 3.1, chlorides 88, CO2 39, BUN 15, and creatinine 0.60. Microbiologic sampling has been negative thus far. No chest x-ray today. Progress note dated 10/25/2022. 73-year-old female seen today in room 266. The patient has a history of both lung cancer, and breast cancer. The patient was on BiPAP through the night, with settings of 10/5 and 100%. Currently, she is on 15 L high flow oxygen. She continues on saline, at 10 mL an hour, and a Cardizem drip at 10 mg an hour. The patient had an uneventful night according to the nurse. White count 19.1, with a normal hemoglobin and hematocrit. Platelet count is 104,000. Sodium 136, potassium 3.7, chlorides 88, CO2 37, BUN 16, creatinine 0.64. Albumin is 2.9. Objective - Vital Signs Vital signs: Vital Signs Temp 99.3 F 10/25/22 03:00 Pulse 98 10/25/22 06:00 Resp 25 H 10/25/22 06:00 BP 139/71 10/25/22 06:00 Pulse Ox 91 L 10/25/22 06:00 FiO2 100 10/25/22 08:21 Intake & Output 10/24/22 10/25/22 10/25/22 18:59 06:59 18:59 Intake Total 635 530 Output Total 1220 1095 Balance -585 -565 Weight 65.3 kg Intake: IV 210 230 Piperacillin-Tazobactam 3 100 100 .375 gm In Sodium Chloride 0.9% 100 ml @ 25 mls/hr IVPB Q8HR [facility] Rx# :[id number] Sodium Chloride 0.9% 1, 110 130 000 ml @ 20 mls/hr IV . Q24H [facility] Rx#:[id number] Intake, IV Titration 425 300 Amount Diltiazem 125 mg In 125 Sodium Chloride 0.9% 100 ml @ 10 MG/HR 10 mls/hr IV .[id number] [facility] Rx#: [id number] Piperacillin-Tazobactam 3 200 .375 gm In Sodium Chloride 0.9% 100 ml @ 25 mls/hr IVPB Q8HR [facility] Rx# :[id number] Potassium Chloride 10 meq 100 In Water For Injection 1 100ml.bag @ 100 mls/hr IVPB Q1H [facility] Rx#: [id number] Potassium Chloride 10 meq 100 In Water For Injection 1 100ml.bag @ 100 mls/hr IVPB Q1H [facility] Rx#: [id number] Potassium Chloride 10 meq 200 In Water For Injection 1 100ml.bag @ 100 mls/hr IVPB Q1HR [facility] Rx#: [id number] Output: Urine 1220 1095 Other: Voiding Method Indwelling Catheter Indwelling Catheter # Bowel Movements 1 - Exam Mild tachypnea/dyspnea. Currently on 15 L high flow nasal cannula. HEENT examination is grossly unremarkable. Mucous membranes are moist. Neck supple. Full range of motion. No adenopathy thyromegaly or neck vein distention. Cardiovascular examination reveals regular rhythm rate. S1-S2 normal. No S3 or S4. No discernible murmur noted. Heart rate 98 bpm. Heart sounds are distant. Lungs reveal coarse bilateral rhonchi. No wheezes. Scattered crackles. S aturations are 100% on 15 L high flow nasal cannula. Abdomen soft without bowel sounds. No masses or tenderness. Extremities are intact. No cyanosis clubbing or edema. Skin is without rash or lesion. Neurologic examination reveals a right facial droop. - Labs CBC & Chem 7: 10/25/22 03:31 10/25/22 03:31 Labs: Abnormal Lab Results - Last 24 Hours (Table) 10/25/22 10/25/22 Range/Units 03:31 03:31 WBC 19.1 H (3.8-10.6) k/uL Plt Count 104 L (150-450) k/uL Neutrophils # 16.9 H (1.3-7.7) k/uL Lymphocytes # 0.9 L (1.0-4.8) k/uL Monocytes # 1.1 H (0-1.0) k/uL Sodium 136 L (137-145) mmol/L Chloride 88 L (98-107) mmol/L Carbon Dioxide 37 H (22-30) mmol/L Calcium 8.3 L (8.4-10.2) mg/dL AST 42 H (14-36) U/L Alkaline Phosphatase 195 H (38-126) U/L Total Protein 5.4 L (6.3-8.2) g/dL Albumin 2.9 L (3.5-5.0) g/dL Assessment and Plan Assessment: Acute/subacute CVA, with aphasia, and right facial droop. Acute hypoxemic and hypercapnic respiratory failure. History of breast cancer, and chronic bilateral pleural effusions. History of non-small cell lung cancer. Expressive aphasia. Possible aspiration pneumonia. History of hypertension. History of CAD, with previous stent placement, right coronary artery. History of myocardial infarction. History of DVT. History of atrial fibrillation. History of osteoarthritis. Lifelong nontobacco user. Plan: Plan dated 10/02/2022. The patient was admitted for neurologic complaints, including right facial droop, and aphasia. The patient will be seen by neurology. She does have a chronic left-sided effusion, and has undergone thoracentesis in the past. I believe the last time we saw her, she had thoracentesis performed that [facility]. I believe I saw her about one year ago in October 2021 recently my consultation from that evaluation. We will continue to follow make recommendations. Plan dated 10/03/2022. The patient is stable from the pulmonary standpoint. She's on room air. She is a chronic left-sided pleural effusion, which had been previously drained at [facility]. Patient is currently being evaluated by neurology for her stroke symptoms. Prognosis is guarded. The patient has a right facial droop, and is unable to speak. Labs, x-rays, and medications are all reviewed. Plan dated 10/23/2022. The patient's overall condition has significantly deteriorated. She remains on BiPAP, with settings of 10/5 and 70%. The patient's very lethargic. She is on a Cardizem drip at 10 mg an hour for her atrial fibrillation. We will DC the Zyvox. She remains on Zosyn. We will continue to follow make recommendations along the way. Labs, x-rays, medications are reviewed. The patient is now a DO NOT RESUSCITATE patient. It would not be inappropriate talk to the family about a palliative care consult, or hospice consult. Plan dated 10/24/2022. The patient remains on BiPAP, his been on BiPAP throughout the night. The chest x-ray from yesterday shows significant consolidation bilaterally. The patient currently is on Cardizem drip at 10 mg an hour, and an IV, at KVO. The patient is a DO NOT RESUSCITATE patient. Apparently the family did have a conversation with hospice yesterday. No further decisions have been made as yet. Labs, x- rays, and medications are reviewed. Prognosis is certainly thought to be very poor. Plan dated 10/25/2022. The patient is seen today in room 266. The patient is on 15 L high flow nasal cannula. She spent the night on BiPAP, with settings of 10/5, and 100%. She remains on a Cardizem drip at 10 mg an hour. She's getting saline at 10 mL an hour. Labs, x-rays, and medications are all reviewed. I was notified of the nurse, this morning, that the patient has decided to go to the hospice [facility], in [place]. I signed some paperwork for the patient to be transported there. Obviously, her prognosis is very poor as mentioned yesterday. Time with Patient: Less than 30
[2022-10-25 11:00] VITALS: TEMP 97.7
[2022-10-25] MEDS: LORazepam 2 MG/ML INJ IV PRN (11:45)
[2022-10-25 12:32] VITALS: BP 147/59; PULSE 105; RESP 29
[2022-10-25] MEDS: DILTIAZEM 125 MG in SODIUM CHLORIDE 0.9% 100 ML IV SCH (12:33)
[2022-10-25] MEDS: SODIUM CHLORIDE 0.9% 1,000 ML IV SCH (12:33)
== END 2022-10-25 12:57 | disposition hospice, home (50) | DRG 64 ==
LOC: EC 10:07 → 3SCARD 13:09 → 2SICU 10-15 18:09 → 3SCARD 10-17 19:04 → 2SICU 10-21 23:15
PROVIDERS: ADMIT Internal Medicine; ATTEND Internal Medicine
PROC: 5A09357 Assistance with Respiratory Ventilation, Less than 24 Consecutive Hours, Continuous Positive Airway Pressure (ICD-10-PCS; 2022-10-15)
PROC: 0W993ZZ Drainage of Right Pleural Cavity, Percutaneous Approach (ICD-10-PCS; principal; 2022-10-16)
PROC: 5A0955A Assistance with Respiratory Ventilation, Greater than 96 Consecutive Hours, High Flow/Velocity Cannula (ICD-10-PCS; 2022-10-16)
DX: I63.49 Cerebral infarction due to embolism of other cerebral artery (principal); E43 Unspecified severe protein-calorie malnutrition; J69.0 Pneumonitis due to inhalation of food and vomit; J96.01 Acute respiratory failure with hypoxia; J96.02 Acute respiratory failure with hypercapnia; J86.9 Pyothorax without fistula; C79.51 Secondary malignant neoplasm of bone; J91.0 Malignant pleural effusion; I48.20 Chronic atrial fibrillation, unspecified; G81.91 Hemiplegia, unspecified affecting right dominant side; C78.02 Secondary malignant neoplasm of left lung; I47.1 Supraventricular tachycardia; Z66 Do not resuscitate; Z51.5 Encounter for palliative care; D69.6 Thrombocytopenia, unspecified; C50.912 Malignant neoplasm of unspecified site of left female breast; C50.911 Malignant neoplasm of unspecified site of right female breast; I67.2 Cerebral atherosclerosis; I70.0 Atherosclerosis of aorta; I08.1 Rheumatic disorders of both mitral and tricuspid valves; I10 Essential (primary) hypertension; I65.29 Occlusion and stenosis of unspecified carotid artery; R29.810 Facial weakness; R29.706 NIHSS score 6; R29.701 NIHSS score 1; I25.10 Atherosclerotic heart disease of native coronary artery without angina pectoris; E78.5 Hyperlipidemia, unspecified; Z53.8 Procedure and treatment not carried out for other reasons; R13.10 Dysphagia, unspecified; I49.3 Ventricular premature depolarization; K59.00 Constipation, unspecified; M19.90 Unspecified osteoarthritis, unspecified site; R47.1 Dysarthria and anarthria; I69.320 Aphasia following cerebral infarction; Z28.310 Unvaccinated for COVID-19; Z95.5 Presence of coronary angioplasty implant and graft; I25.2 Old myocardial infarction; Z88.8 Allergy status to other drugs, medicaments and biological substances; Z88.5 Allergy status to narcotic agent; Z79.899 Other long term (current) drug therapy; Z79.02 Long term (current) use of antithrombotics/antiplatelets; Z79.01 Long term (current) use of anticoagulants; Z86.711 Personal history of pulmonary embolism; Z79.811 Long term (current) use of aromatase inhibitors; Z80.8 Family history of malignant neoplasm of other organs or systems; Z82.3 Family history of stroke; Z17.0 Estrogen receptor positive status [ER+]; Z86.718 Personal history of other venous thrombosis and embolism; Z68.26 Body mass index [BMI] 26.0-26.9, adult; Z87.891 Personal history of nicotine dependence
CPT/HCPCS: 36415; 36600; 70450; 70496; 70498; 70553; 71045; 71046; 71250; 74018; 74230; 76604; 80048; 80053; 80061; 80306; 81001; 81003; 81240; 81241; 82550; 82805; 82945; 83615; 83735; 83880; 84132; 84145; 84155; 84157; 84484; 85025; 85027; 85246; 85300; 85301; 85302; 85303; 85305; 85306; 85598; 85610; 85613; 85652; 85730; 85732; 86038; 86140; 86146; 86147; 87040; 87070; 87205; 88108; 88305; 88341; 88342; 89050; 93005; 93306; 93312; 93320; 93325; 93970; 94660; 94760; 95816; 96374; 96375; 99291